=== PATIENT | male | born 1965 | race Hispanic/Latino ===

== ENCOUNTER 2021-11-21 08:19 | Inpatient (IN) | payer OTHER, SELFPAY ==
--- OUTSIDE RECORDS SUMMARY | 2021-11-21 08:28 | XMS REPORT | Continuity of Care Document ---
:1965 Demographics Address [address] [address] Mobile Phone Email Address Preferred Language es Marital Status Unknown Shinto Affiliation Unknown Race Unknown Additional Race(s) Unavailable Ethnic Group or Author Organization [facility] t Address [address] [place] [address] Care Team Providers Name Role Phone Pcp, Does Not Have A Primary Care Physician Buster OMALLEY Attending Clinician Stephanie López Attending Clinician Magali KINSEY Attending Clinician Irving KINSEY Attending Clinician Travis GUSTAFSON, E Attending Clinician Magali KINSEY Admitting Clinician Payers Payer Name Policy Type Policy Number Effective Date Expiration Date S ource Problems Condition Condition Condition Status Onset Resolution Last Treating Co mments Source Name Details Category Date Date Treatment Clinician Date Obesity Obesity Disease Active Univers (BMI (BMI 9-27 ity of 30-39.9) 30-39.9) 00:00: [address] Cellulitis Cellulitis Disease Active U nivers 9-26 ity of 00:00: [address] Allergies, Adverse Reactions, Alerts Allergy Allergy Status Severity Reaction(s) Onset Inactive Treating Comm ents Source Name Type Date Date Clinician NO KNOWN Drug Active Univers ALLERGIE Class ity of S [facility] Social History Social Habit Start Date Stop Date Quantity Comments Source Exposure to Not sure [facility]-CoV-2 [facility] (event) Branch Alcohol intake 2021-07-08 2021-07-08 Ex-drinker University 00:00:00 00:00:00 (finding) [facility] Tobacco use and 2021-07-03 2021-07-03 Never used Universit y of exposure 00:00:00 00:00:00 [facility] Sex [birth year] Universit y of 00:00:00 00:00:00 [facility] Smoking Status Start Date Stop Date Source Never smoker [facility] Medications Ordered Filled Start Stop Current Ordering Indication Dosage Frequency Signature Comments Components Source Medication Medication Date Date Medication? Clinician (SIG) Name Name amLODIPine 2020-10- No [id number] 10mg Take 1 Univers 10 mg 0-02 08-09 [id number] tablet by ity of tablet 00:00: 04:59 mouth [place] 00 :00 daily for Medical 30 days. Branch aspirin 81 2020-10- No [id number] 81mg Take 1 Univers mg chewable 0-08-09 [id number] tablet by ity of tablet 00:00: 04:59 mouth [place] 00 :00 daily for Medical 30 days. Branch lisinopriL 2020-10- No [id number] 40mg Take 1 Univers 40 mg 0-08-09 [id number] tablet by ity of tablet 00:00: 04:59 mouth [place] 00 :00 daily for Medical 30 days. Branch amLODIPine 2020-10- No [id number] 10mg Take 1 Univers 10 mg 0-02 08-09 [id number] tablet by ity of tablet 00:00: 04:59 mouth [place] 00 :00 daily for Medical 30 days. Branch aspirin 81 2020-10- No [id number] 81mg Take 1 Univers mg chewable 0-08-09 [id number] tablet by ity of tablet 00:00: 04:59 mouth [place] 00 :00 daily for Medical 30 days. Branch lisinopriL 2020-10- No [id number] 40mg Take 1 Univers 40 mg 0-02 08-09 [id number] tablet by ity of tablet 00:00: 04:59 mouth [place] 00 :00 daily for Medical 30 days. Branch amLODIPine 2020-10- No [id number] 10mg Take 1 Univers 10 mg 0-02 08-09 [id number] tablet by ity of tablet 00:00: 04:59 mouth [place] 00 :00 daily for Medical 30 days. Branch aspirin 81 2020-10- No [id number] 81mg Take 1 Univers mg chewable 08-09 [id number] tablet by ity of tablet 00:00: 04:59 mouth [place] 00 :00 daily for Medical 30 days. [place] lisinopriL 2020-10- No [id number] 40mg Take 1 Univers 40 mg 08-09 [id number] tablet by ity of tablet 00:00: 04:59 mouth [place] 00 :00 daily for Medical 30 days. [place] amLODIPine 2020-10 Yes 10mg 10 mg, Unive rs (NORVASC) 0-01 Oral, ity of tablet 10 14:00: DAILY, [place] mg 00 First dose Medical on Sun [place] 07/08/21 at 0900, Until Discontinu ed, Routine amLODIPine 2020-10 Yes 10mg 10 mg, Unive rs (NORVASC) 0- Oral, ity of tablet 10 14:00: DAILY, [place] mg 00 First dose Medical on Sun [place] 07/08/21 at 0900, Until Discontinu ed, Routine Blood-Gluco 2020-10 Yes [id number] Use as Univers se Meter 0- [id number] directed ity o f (RELION 00:00: [place] ALL-IN-ONE 00 Medical METER) Kit [place] Insulin 2020-10 Yes [id number] Use as U nivers [place], 0- [id number] directed ity o f Disposable, 00:00: [place] (RELION 00 Medical NEEDLES) 31 Branch gauge x 1/4" Ndle Blood-Gluco 2020-10 Yes [id number] Use as Univers se Meter 0- [id number] directed ity o f (RELION 00:00: [place] ALL-IN-ONE 00 Medical METER) Kit [place] Insulin 2020-10 Yes [id number] Use as U nivers [place], 0- 819887 directed ity o f Disposable, 00:00: [place] (RELION 00 Medical NEEDLES) 31 Branch gauge x 1/4" Ndle Blood-Gluco 2020-10 Yes [id number] Use as Univers se Meter 0- [id number] directed ity o f (RELION 00:00: [place] ALL-IN-ONE 00 Medical METER) Kit [place] Insulin 2020-10 Yes [id number] Use as U nivers [place], 0- 508425 directed ity o f Disposable, 00:00: [place] (RELION 00 Medical NEEDLES) 31 Branch gauge x /" Ndle atorvastati 2020-10- No [id number] 40mg Take 1 Univers n 40 mg 08-08 [id number] tablet by ity of tablet 00:00: 04:59 mouth at [place] 00 :00 bedtime Medical for 30 Branch days. glipiZIDE 2020-10- No [id number] 10mg Take 1 Univers 10 mg 08-08 [id number] tablet by ity of tablet 00:00: 04:59 mouth 2 [place] 00 :00 (two) Medical times [place] daily before breakfast and dinner for 30 days. insulin NPH 2020-10- No [id number] 13U inject 13 Univers and regular 08-08 [id number] Units ity of human 70-30 00:00: 04:59 under the [place] 100 unit/mL 00 :00 skin every Me dical (70-30) morning Branch injection and evening for 30 days. metFORMIN 2020-10- No [id number] 500mg Take 1 Univers 500 mg 08-08 [id number] tablet by ity o f tablet 00:00: 04:59 mouth 2 [place] 00 :00 ([facility] times [place] daily with meals for 30 days. atorvastati 2020-10- No [id number] 40mg Take 1 Univers n 40 mg 08-08 [id number] tablet by ity of tablet 00:00: 04:59 mouth at [place] 00 :[address] [facility] Medical for 30 Branch days. glipiZIDE 2020-10- No [id number] 10mg Take 1 Univers 10 mg 08-08 [id number] tablet by ity of tablet 00:00: 04:59 mouth 2 [place] 00 :00 ([facility] Medical times [place] daily before breakfast and dinner for 30 days. insulin NPH 2020-10- No [id number] 13U inject 13 Univers and regular 08-08 [id number] Units ity of human 70-30 00:00: 04:59 under the [place] 100 unit/mL 00 :00 skin every Me dical (70-30) morning Branch injection and evening for 30 days. metFORMIN 2020-10- No [id number] 500mg Take 1 Univers 500 mg 008-08 [id number] tablet by ity o f tablet 00:00: 04:59 mouth 2 [place] 00 :00 (two) Medical times Branch daily with meals for 30 days. atorvastati 2020-10- No [id number] 40mg Take 1 Univers n 40 mg 08-08 [id number] tablet by ity of tablet 00:00: 04:59 mouth at [place] 00 :00 bedtime Medical for 30 Branch days. glipiZIDE 2020-10- No [id number] 10mg Take 1 Univers 10 mg 08-08 [id number] tablet by ity of tablet 00:00: 04:59 mouth 2 [place] 00 :00 (two) Medical times Branch daily before breakfast and dinner for 30 days. insulin NPH 2020-10- No [id number] 13U inject 13 Univers and regular 08-08 [id number] Units ity of human 70-30 00:00: 04:59 under the [place] 100 unit/mL 00 :00 skin every Me dical (70-30) morning Branch injection and evening for 30 days. metFORMIN 2020-10- No [id number] 500mg Take 1 Univers 500 mg 08-08 [id number] tablet by ity o f tablet 00:00: 04:59 mouth 2 [place] 00 :00 (two) Medical times Branch daily with meals for 30 days. lactobacill 2020-10- No [id number] .5mg Take 1 Univers us 007-19 [id number] tablet by ity of acidophilus 00:00: 04:59 mouth 2 [place] 00 :00 (two) Medical times Branch daily for 10 days. lactobacill 2020-10- No [id number] .5mg Take 1 Univers us 07-19 [id number] tablet by ity of acidophilus 00:00: 04:59 mouth 2 [place] 00 :00 (two) Medical times Branch daily for 10 days. lactobacill 2020-10 No [id number] .5mg Take 1 Univers us 0-07-19 [id number] tablet by ity of acidophilus 00:00: 04:59 mouth 2 [place] 00 :00 (two) Medical times Branch daily for 10 days. amoxicillin 2020-10- No [id number] 500mg Take 1 Univers 500 mg 07-16 [id number] tablet by ity o f tablet 00:00: 04:59 mouth 2 [place] 00 :00 (two) Medical times Branch daily for 7 days. amoxicillin 2020-10- No [id number] 500mg Take 1 Univers 500 mg 0-07-16 [id number] tablet by ity o f tablet 00:00: 04:59 mouth 2 [place] 00 :00 (two) Medical times Branch daily for 7 days. amoxicillin 2020-10 No [id number] 500mg Take 1 Univers 500 mg 007-16 [id number] tablet by ity o f tablet 00:00: 04:59 mouth 2 [place] 00 :00 (two) Medical times Branch daily for 7 days. HYDROcodone 2020-10- No [id number] 1{tbl} Take 1 U nivers -acetaminop 0-01 10-07 tablet by it y of hen 5-325 00:00: 04:59 mouth [place] mg tablet 00 :00 every 6 Medical (six) Branch hours as needed for Pain (scale 7-10) for up to 5 days. Indication s: acute pain HYDROcodone 2020-10- No [id number] 1{tbl} Take 1 U nivers -acetaminop 0-01 10-07 tablet by it y of hen 5-325 00:00: 04:59 mouth [place] mg tablet 00 :00 every 6 Medical (six) Branch hours as needed for Pain (scale 7-10) for up to 5 days. Indication s: acute pain HYDROcodone 2020-10- No [id number] 1{tbl} Take 1 U nivers -acetaminop 0-01 10-07 tablet by it y of hen 5-325 00:00: 04:59 mouth [place] mg tablet 00 :00 every 6 Medical (six) Branch hours as needed for Pain (scale 7-10) for up to 5 days. Indication s: acute pain lisinopriL 2020-0 Yes 40mg 40 mg, Unive rs (PRINIVIL,Z 9-30 Oral, ity of ESTRIL) 14:00: DAILY, [place] tablet 40 00 First dose Medi marco a mg (after Branch last modificati on) on Thuy 07/07/21 at 0900, Until Discontinu ed, Routine lisinopriL 2020-0 Yes 40mg 40 mg, Unive rs (PRINIVIL,Z 9-30 Oral, ity of ESTRIL) 14:00: DAILY, [place] tablet 40 00 First dose Medi marco a mg (after Branch last modificati on) on Thuy 07/07/21 at 0900, Until Discontinu ed, Routine lisinopriL Yes 40mg 40 mg, Unive rs (PRINIVIL,Z 9-30 Oral, ity of ESTRIL) 14:00: DAILY, [place] tablet 40 00 First dose Medi marco a mg (after Branch last modificati on) on Thuy 07/07/21 at 0900, Until Discontinu ed, Routine lactated 2020-0 Yes 1000mL at 50 Univer s ringers IV 9-30 mL/hr, ity of infusion 13:45: 1,000 mL, [place] 1,000 mL 00 IV Medical Infusion, Branch CONTINUOUS , Starting on Thuy 07/07/21 at 0845, Until Discontinu ed, Routine, PACU lactated 2020-0 Yes 1000mL at 50 Univer s ringers IV 9-30 mL/hr, ity of infusion 13:45: 1,000 mL, [place] 1,000 mL 00 IV Medical Infusion, Branch CONTINUOUS , Starting on Thuy 07/07/21 at 0845, Until Discontinu ed, Routine, PACU HYDROmorphO 2020- No .2mg 0.2 mg, Un baldemar ne 07-07 Slow IV ity of (DILAUDID) 13:35: 14:34 [place], [place] injection 49 :40 Q5MIN PRN, Medi marco a 0.2 mg 10 doses, Branch Starting on Thuy 07/07/21 at 0835, Until Thuy 07/07/21 at 0934, Routine, Pain (scale 7-10), PACU
Us e approved by (Faculty): PACU USE -ANESTHESI A SERVICE-HY DROMORPHON E INJECTIONS bupivacaine 2020- No PRN, Unive rs (preserv 07-07 Starting ity of free) 13:14: 14:34 on Thuy [place] (SENSORCAIN 00 :40 07/07/21 at Mt dical E MPF) 0.25 0814, Branch % (2.5 Intra-op mg/mL) 5 mL, lidocaine 1% (PF) (XYLOCAINE) 5 mL benzocaine- Yes 1{lozen 1 Lozenge, Univers menthoL 9-30 ge} Oral, ity of (CEPACOL 00:29: Q4HPRN, [place] SORE THROAT 57 Starting Medi marco a (ANA LILIA-MEN)) on Sun [facility] 07/06/21 at Lozen 192, Until Discontinu ed, Routine, cough/sore throat benzocaine- Yes 1{lozen 1 Lozenge, Univers menthoL 9-30 ge} Oral, ity of (CEPACOL 00:29: Q4HPRN, [place] SORE THROAT 57 Starting Medi marco a (ANA LILIA-MEN)) [facility] at zen 1928, Until Discontinu ed, Routine, cough/sore throat insulin NPH Yes 13U 13 Units, U nivers and regular 07-06 Subcutaneo it y of human 22:00: [place], [place] (HUMULIN 00 QAM+PM, Medical 70-30 U-100 First dose Br anch INSULIN) on Sun 100 unit/mL 07/06/21 at (70-30) 1700, injection Until 13 Units Discontinu ed, Routine insulin NPH Yes 13U 13 Units, U nivers and regular 07-06 Subcutaneo it y of human 30 22:00: [place], [place] (HUMULIN 00 QAM+PM, Medical 70-30 U-100 First dose Br anch INSULIN) on Sun 100 unit/mL 07/06/21 at (70-30) 1700, injection Until 13 Units Discontinu ed, Routine insulin NPH Yes 13U 13 Units, U nivers and regular 07-06 Subcutaneo it y of human 30 22:00: [place], [place] (HUMULIN 00 QAM+PM, Medical 70-30 U-100 First dose Br anch INSULIN) on Sun 100 unit/mL 07/06/21 at (70-30) 1700, injection Until 13 Units Discontinu ed, Routine lisinopriL No 20mg 20 mg, Univ ers (PRINIVIL,Z 07-06 Oral, ONCE i ty of ESTRIL) 18:30: 18:54 NOW, 1 [place] tablet 20 00 :00 dose, On Medica l mg Wed Branch 07/06/21 at 1330, Routine No known No Univers medications 07-06 ity of 07:41: [place] 15 Medical Branch lactated 2020- No 1000mL at 100 [facility] ers ringers IV 07-06 mL/hr, ity of infusion 00:15: 13:29 1,000 mL, [place] 1,000 mL 00 :01 IV Medical Infusion, Branch CONTINUOUS , Starting on Sun07/05/21 at 1915, Until Sun07/06/21 at 0829, Routine, PACU sodium 2020- No PRN, Univers chloride 07-06 Starting ity of 0.9 % 00:09: 00:34 on Sun [place] irrigation 00 :57 07/05/21 at [facility] ical solution 1909, Branch Until Sun07/05/21 at 1934, Intra-op bupivacaine 2020- No PRN, Unive rs (preserv 07-06 Starting ity of free) 0.5% 00:07: 00:34 on [place] (SENSORCAIN 00 :57 07/05/21 at Mt dical E MPF) 0.5 1907, Branch % (5 mg/mL) Until Sun injection 07/05/21 at 1934, Routine, Intra-op lidocaine 2020- No PRN, Univers 1% 07-05 Starting ity of (XYLOCAINE) 23:22: 00:34 on Sun [place] 10 mg/mL (1 00 :57 07/05/21 at Mt dical %) 1822, Branch injection Until Sun07/05/21 at 1934, Routine, Intra-op gadoteridol 2020- No [id number] .2mL/kg 19.2 mL Univers (PROHANCE-2 07-05 [id number] (0.2 mL/kg ity of 0 mL) 14:45: 14:45 ?96 kg), [place] injection 00 :00 Intravenou Medi marco a 19.2 mL s, ONCE, 1 Branch dose, On Sun07/05/21 at 0945, Routine vancomycin 2021-0 Yes 1500mg 1,500 mg, Univers 1500 mg in 07-05 IV ity of NS 500 mL 05:00: Infusion, [place] IV 00 Q12H ABX, Medical Piggyback First dose Bran ch RTU 1,500 on Tue mg 07/05/21 at 0000, Until Discontinu ed, Administer over 90 Minutes
Reason for Anti-Infec tive: Documented Infection< br>Documen eulalio Infection Site: Wound
D uration of Therapy: 7 days vancomycin 0 Yes 1500mg 1,500 mg, Univers 1500 mg in 07-05 IV ity of NS 500 mL 05:00: Infusion, [place] IV 00 Q12H ABX, Medical Piggyback First dose Bran RTU 1,500 on Tue mg 07/05/21 at 0000, Until Discontinu ed, Administer over 90 Minutes
Reason for Anti-Infec tive: Documented Infection< br>Documen eulalio Infection Site: Wound
D uration of Therapy: 7 days vancomycin Yes 1500mg 1,500 mg, Univers 1500 mg in 07-05 IV ity of NS 500 mL 05:00: Infusion, [place] IV 00 Q12H ABX, Medical Piggyback First dose Bran RTU 1,500 on Tue mg 07/05/21 at 0000, Until Discontinu ed, Administer over 90 Minutes
Reason for Anti-Infec tive: Documented Infection< br>Documen eulalio Infection Site: Wound
D uration of Therapy: 7 days metroNIDAZO 0 Yes 500mg 500 mg, Un baldemar LE (FLAGYL) 07-05 Oral, Q8H, it y of tablet 500 03:00: First dose [place] mg 00 on [facility] 07/04/21 at Branch 2200, Until Discontinu ed, Routine
Reason for Anti-Infec tive: Documented Infection< br>Documen eulalio Infection Site: Skin / Soft Tissue<br& gt;Duratio n of Therapy: 7 days metroNIDAZO 0 Yes 500mg 500 mg, Un baldemar LE (FLAGYL) 07-05 Oral, Q8H, it y of tablet 500 03:00: First dose [place] mg 00 on [facility] 07/04/21 at Branch 2200, Until Discontinu ed, Routine
Reason for Anti-Infec tive: Documented Infection< br>Documen eulalio Infection Site: Skin / Soft Tissue<br& gt;Duratio n of Therapy: 7 days metroNIDAZO 2020-0 Yes 500mg 500 mg, Un baldemar LE (FLAGYL) 9-28 Oral, Q8H, it y of tablet 500 03:00: First dose [place] mg 00 on [facility] Medical 07/04/21 at Branch 2200, Until Discontinu ed, Routine
Reason for Anti-Infec tive: Documented Infection< br>Documen eulalio Infection Site: Skin / Soft Tissue<br& gt;Duratio n of Therapy: 7 days benzonatate 2020-0 Yes 100mg 100 mg, Un baldemar (TESSALON 9-28 Oral, ity of PERLES) 01:20: TIDPRN, [place] capsule 100 41 Starting Medi marco a mg on Mon Branch 07/04/21 at 2019, Until Discontinu ed, Routine, Cough benzonatate 2020-0 Yes 100mg 100 mg, Un baldemar (TESSALON 9-28 Oral, ity of PERLES) 01:20: TIDPRN, [place] capsule 100 41 Starting Medi marco a mg on Mon Branch 07/04/21 at 2019, Until Discontinu ed, Routine, Cough benzonatate 2020-0 Yes 100mg 100 mg, Un baldemar (TESSALON 9-28 Oral, ity of PERLES) 01:20: TIDPRN, [place] capsule 100 41 Starting Medi marco a mg on Mon Branch 07/04/21 at 2019, Until Discontinu ed, Routine, Cough HYDROcodone 2020-0 Yes 1{tbl} 1 tablet, Univers -acetaminop 9-28 Oral, ity of hen (NORCO) 01:20: Q6HPRN, [place] 10-325 mg 21 Starting Medica l tablet 1 on Mon Branch tablet 07/04/21 at 2019, Until Discontinu ed, Routine, Pain (scale 7-10) HYDROcodone 2020-0 Yes 1{tbl} 1 tablet, Univers -acetaminop 9-28 Oral, ity of hen (NORCO) 01:20: Q6HPRN, [place] 10-325 mg 21 Starting Medica l tablet 1 on Mon Branch tablet 07/04/21 at 2020, Until Discontinu ed, Routine, Pain (scale 7-10) HYDROcodone 2020-0 Yes 1{tbl} 1 tablet, Univers -acetaminop 9-28 Oral, ity of hen (NORCO) 01:20: Q6HPRN, [place] 10-325 mg 21 Starting Medica l tablet 1 on Mon Branch tablet 07/04/21 at 2019, Until Discontinu ed, Routine, Pain (scale 7-10) HYDROcodone 2020-0 Yes 1{tbl} 1 tablet, Univers -acetaminop 9-28 Oral, ity of hen (NORCO 01:20: Q6HPRN, [place] 5) 5-325 mg 07 Starting Medi marco a tablet 1 on Mon Branch tablet 07/04/21 at 2019, Until Discontinu ed, Routine, Pain (scale 4-6) HYDROcodone 2020-0 Yes 1{tbl} 1 tablet, Univers -acetaminop 9-28 Oral, ity of hen (NORCO 01:20: Q6HPRN, [place] 5) 5-325 mg 07 Starting Medi marco a tablet 1 on Mon Branch tablet 07/04/21 at 2019, Until Discontinu ed, Routine, Pain (scale 4-6) HYDROcodone 2020-0 Yes 1{tbl} 1 tablet, Univers -acetaminop 9-28 Oral, ity of hen (NORCO 01:20: Q6HPRN, [place] 5) 5-325 mg 07 Starting Medi marco a tablet 1 on Mon Branch tablet 07/04/21 at 2019, Until Discontinu ed, Routine, Pain (scale 4-6) lactobacill 2020-0 Yes .5mg 0.5 mg, Uni vers us 9-28 Oral, BID, ity of acidophilus 01:00: First dose [place] tablet 0.5 00 on Mon Medical mg 07/04/21 at Branch 1999, Until Discontinu ed, Routine lactobacill 2020-0 Yes .5mg 0.5 mg, Uni vers us 9-28 Oral, BID, ity of acidophilus 01:00: First dose [place] tablet 0.5 00 on Mon Medical mg 07/04/21 at Branch 1999, Until Discontinu ed, Routine lactobacill 2020-0 Yes .5mg 0.5 mg, Uni vers us 9-28 Oral, BID, ity of acidophilus 01:00: First dose [place] tablet 0.5 00 on Mon Medical mg 07/04/21 at Branch 2000, Until Discontinu ed, Routine ceFEPIme Yes 1000mg 1,000 mg, Un baldemar (MAXIPIME) 9- IV ity of 1,000 mg in 21:30: Piggyback, [place] NaCl 0.9% 00 Q8H ABX, Medica l (NS) 50 mL First dose Bra nch MINI-BAG on Sun07/04/21 at 1630, Until Discontinu ed, Administer over 30 Minutes, 50 mL
Reas on for Anti-Infec tive: Documented Infection< br>Documen eulalio Infection Site: Skin / Soft Tissue
Duration of Therapy: 7 days ceFEPIme Yes 1000mg 1,000 mg, Un baldemar (MAXIPIME) 9 IV ity of 1,000 mg in 21:30: [place], [place] NaCl 0.9% 00 Q8H ABX, Medica l (NS) 50 mL First dose Bra nch MINI-BAG on Sun07/04/21 at 1630, Until Discontinu ed, Administer over 30 Minutes, 50 mL
Reas on for Anti-Infec tive: Documented Infection< br>Documen eulalio Infection Site: Skin / Soft Tissue
Duration of Therapy: 7 days ceFEPIme Yes 1000mg 1,000 mg, Un baldemar (MAXIPIME) 9 IV ity of 1,000 mg in 21:30: [facility] [place] NaCl 0.9% 00 Q8H ABX, Medica l (NS) 50 mL First dose Bra nch MINI-BAG on Sun07/04/21 at 1630, Until Discontinu ed, Administer over 30 Minutes, 50 mL
Reas on for Anti-Infec tive: Documented Infection< br>Documen eulalio Infection Site: Skin / Soft Tissue
Duration of Therapy: 7 days atorvastati Yes 40mg 40 mg, Univ ers n (LIPITOR) - Oral, QHS, it y of tablet 40 02:00: First dose [place] mg 00 on [facility] 07/03/21 at Branch 2100, Until Discontinu ed, Routine atorvastati Yes 40mg 40 mg, Univ ers n (LIPITOR) 07-04 Oral, QHS, it y of tablet 40 02:00: First dose [place] mg 00 on [facility] 07/03/21 at [place] 2100, Until Discontinu ed, Routine atorvastati Yes 40mg 40 mg, Univ ers n (LIPITOR) 07-04 Oral, QHS, it y of tablet 40 02:00: First dose [place] mg 00 on [facility] 07/03/21 at Branch 2100, Until Discontinu ed, Routine vancomycin 2020- No 1000mg 1,000 mg, Univers (VANCOCIN) 07-03 IV ity of 1,000 mg in 17:00: 22:34 [place], [place] NaCl 0.9% 00 :00 Q12H ABX, Medic al (NS) 250 mL First dose Br anch VIAL-MATE (after IV last piggyback reorder) on [place] 07/03/21 at 1200, Until Discontinu ed, Administer over 60 Minutes, 250 mL
Reas on for Anti-Infec tive: Documented Infection& lt;br>Docu mented Infection Site: Wound
D uration of Therapy: 7 days iopamidol 2020- No [id number] 100mL 100 mL, Univers (ISOVUE 07-03 [id number] Intravenou ity of 370-500 mL) 16:00: 14:35 s, ONCE, 1 [place] injection 00 :00 dose, On Medica l 100 mL [facility] 07/03/21 at 1100, Routine magnesium 2020- No 2g 2 g, IV Univ ers sulfate in 07-03 Piggyback, it y of water 2 14:30: 15:41 ONCE, 1 [place] gram/50 mL 00 :00 dose, On Medic al (4 %) [facility] infusion 2 07/03/21 at g 0930, Routine piperacilli 2020- No 3.375g 3.375 g, Univers n-tazobacta 07-03 IV ity of m (ZOSYN) 14:15: 20:21 [place], [place] 3.375 g in 00 :19 Q6H ABX, Medic al NaCl 0.9% First dose Bran ch (NS) 100 mL (after MINI-BAG last reorder) on [place] 07/03/21 at 0915, Until Discontinu ed, Administer over 30 Minutes, 100 mL
Reas on for Anti-Infec tive: Documented Infection& lt;br>Docu mented Infection Site: Wound
D uration of Therapy: Other (see Comments) aspirin 2020-0 Yes 81mg 81 mg, Univers chewable 07-03 Oral, ity of tablet 81 14:00: DAILY, [place] mg 00 First dose Medical on [facility] 07/03/21 at 0900, Until Discontinu ed, Routine enoxaparin 2020-0 Yes 40mg 40 mg, Unive rs (LOVENOX) 07-03 Subcutaneo ity of injection 14:00: us, DAILY, [place] 40 mg 00 First dose Medical on [facility] 07/03/21 at 0900, Until Discontinu ed, Routine aspirin 2020-0 Yes 81mg 81 mg, Univers chewable 07-03 Oral, ity of tablet 81 14:00: DAILY, [place] mg 00 First dose Medical on [facility] 07/03/21 at 0900, Until Discontinu ed, Routine enoxaparin 2020-0 Yes 40mg 40 mg, Unive rs (LOVENOX) 07-03 Subcutaneo ity of injection 14:00: us, DAILY, [place] 40 mg 00 First dose Medical on [facility] 07/03/21 at 0900, Until Discontinu ed, Routine aspirin 2020-0 Yes 81mg 81 mg, Univers chewable 07-03 Oral, ity of tablet 81 14:00: DAILY, [place] mg 00 First dose Medical on [facility] 07/03/21 at 0900, Until Discontinu ed, Routine enoxaparin 2020-0 Yes 40mg 40 mg, Unive rs (LOVENOX) 07-03 Subcutaneo ity of injection 14:00: us, DAILY, [place] 40 mg 00 First dose Medical on [facility] 07/03/21 at 0900, Until Discontinu ed, Routine NaCl 0.9% 2020-0 Yes 1000mL at 50 Unive rs (NS) IV 9-26 mL/hr, IV ity of infusion 13:15: Infusion, [place] 1,000 mL 00 CONTINUOUS Medic al , Starting Branch on [place] 07/03/21 at 0815, Until Discontinu ed, Routine NaCl 0.9% 2021-0 Yes 1000mL at 50 Unive rs (NS) IV 9-26 mL/hr, IV ity of infusion 13:15: Infusion, [place] 1,000 mL 00 CONTINUOUS Medic al , Starting Branch on [place] 07/03/21 at 0815, Until Discontinu ed, Routine NaCl 0.9% 2021-0 Yes 1000mL at 50 Unive rs (NS) IV 9-26 mL/hr, IV ity of infusion 13:15: Infusion, [place] 1,000 mL 00 CONTINUOUS Medic al , Starting Branch on [place] 07/03/21 at 0815, Until Discontinu ed, Routine docusate 2020-0 Yes 100mg 100 mg, Unive rs (COLACE) 07-03 Oral, BID, ity o f capsule 100 13:00: First dose [place] mg 00 on [facility] 07/03/21 at Branch 0800, Until Discontinu ed, Routine docusate 2020-0 Yes 100mg 100 mg, Unive rs (COLACE) 07-03 Oral, BID, ity o f capsule 100 13:00: First dose [place] mg 00 on [facility] 07/03/21 at Branch 0800, Until Discontinu ed, Routine docusate 2020-0 Yes 100mg 100 mg, Unive rs (COLACE) 07-03 Oral, BID, ity o f capsule 100 13:00: First dose [place] mg 00 on [facility] 07/03/21 at Branch 0800, Until Discontinu ed, Routine lisinopriL 2020-0 2021- No 20mg 20 mg, Univ ers (PRINIVIL,Z 07-0329 Oral, BID, i ty of ESTRIL) 13:00: 17:22 First dose [place] as tablet 20 00 :08 on [facility] mg 07/03/21 at Branch 0800, Until Discontinu ed, Routine glipiZIDE 2020-0 Yes 10mg 10 mg, Univer s (GLUCOTROL) 07-03 Oral, ity of tablet 10 12:30: BIDAC, [place] mg 00 First dose Medical on [place] [facility] 07/03/21 at 0730, Until Discontinu ed, Routine glipiZIDE 1-0 Yes 10mg 10 mg, Univer s (GLUCOTROL) 07-03 Oral, ity of tablet 10 12:30: BIDAC, [place] mg 00 First dose Medical on [place] [facility] 07/03/21 at 0730, Until Discontinu ed, Routine glipiZIDE Yes 10mg 10 mg, Univer s (GLUCOTROL) 07-03 Oral, ity of tablet 10 12:30: BIDAC, [place] mg 00 First dose Medical on [place] [facility] 07/03/21 at 0730, Until Discontinu ed, Routine insulin NPH 202- No 10U 10 Units, Univers and regular 07-03 0927 Subcutaneo i ty of human 70-30 12:30: 13:29 us, BIDAC, [place] (HUMULIN 00 :20 First dose Medic al 70-30 U-100 on [facility] INSULIN) 07/03/21 at 100 unit/mL 0730, (70-30) Until injection Discontinu 10 Units ed, Routine magnesium Yes 400mg 400 mg, Univ ers oxide 07-03 Oral, BID, ity of (MAG-OX 12:15: [place] 400[place] tablet 00 on [facility] 400 mg 07/03/21 at Branch 0715, Until Discontinu ed, Routine magnesium Yes 400mg 400 mg, Univ ers oxide 07-03 Oral, BID, ity of (MAG-OX 12:15: [place] 400[place] tablet 00 on [facility] 400 mg 07/03/21 at Branch 0715, Until Discontinu ed, Routine magnesium Yes 400mg 400 mg, Univ ers oxide 07-03 Oral, BID, ity of (MAG-OX 12:15: [place] 400[place] tablet 00 on [facility] 400 mg 07/03/21 at Branch 0715, Until Discontinu ed, Routine Sliding 2020- Yes Subcutaneo Univ ers Scale - us, TID ity of Insulin - 08:45: MEALS, [place] Lispro 00 First dose Medical (HumaLOG) + on [facility]sbg 07/03/21 at Testing 0345, Until Discontinu ed, Routine Sliding 2020- Yes Subcutaneo Univ ers Scale 07-03 us, TID ity of Insulin - 08:45: MEALS, [place] Lispro 00 First dose Medical (HumaLOG) + on [facility] 07/03/21 at Testing 0345, Until Discontinu ed, Routine Sliding Yes Subcutaneo Univ ers Scale 07-03 us, TID ity of Insulin - 08:45: MEALS, [place] Lispro 00 First dose Medical (HumaLOG) + on [facility] 07/03/21 at Testing 0345, Until Discontinu ed, Routine ondansetron 2020-0 Yes 4mg 4 mg, Slow Univers (ZOFRAN 07-03 IV Push, ity of (PF)) 08:30: Q6HPRN, [place] injection 4 37 Starting Medi marco a mg on [place] [facility] 07/03/21 at 0330, Until Discontinu ed, Routine, Nausea and Vomiting (N/V) ondansetron 2020-0 Yes 4mg 4 mg, Slow Univers (ZOFRAN 07-03 IV Push, ity of (PF)) 08:30: Q6HPRN, [place] injection 4 37 Starting Medi marco a mg on [place] [facility] 07/03/21 at 0330, Until Discontinu ed, Routine, Nausea and Vomiting (N/V) ondansetron 2020-0 Yes 4mg 4 mg, Slow Univers (ZOFRAN 07-03 IV Push, ity of (PF)) 08:30: Q6HPRN, [place] injection 4 37 Starting Medi marco a mg on [place] [facility] 07/03/21 at 0330, Until Discontinu ed, Routine, Nausea and Vomiting (N/V) piperacilli 2020-0 2020- No 3.375g 3.375 g, Univers n-tazobacta 07-03 IV ity of m (ZOSYN) 08:30: 08:16 [place]gyback, [place] 3.375 g in 00 :00 ONCE, 1 Medica l NaCl 0.9% dose, On Branch (NS) 100 mL [place] MINI-BAG 07/03/21 at 0330, Administer over 30 Minutes, 100 mL
Reas on for Anti-Infec tive: Documented Infection< br>Documen eulalio Infection Site: Wound<br&g t;Duration of Therapy: Other (see Comments) glucagon 2020-0 Yes 1mg 1 mg, Univers (GLUCAGEN 07-03 Intramuscu ity of DIAGNOSTIC 08:29: lar, [place]N, [place] KIT) 07 Starting Medical injection 1 on [facility] 07/03/21 at 0329, Until Discontinu ed, JUAN, Blood Glucose < or = 70 mg/dL and patient is unable to swallow or has mental changes. dextrose 50 2020-0 Yes 25mL 25 mL, Univ ers % in water 07-03 Slow IV ity of (D50W) 08:29: Push, PRN, [place] injection 07 Starting Medica l 25 mL on [facility] 07/03/21 at 0329, Until Discontinu ed, JUAN, Blood Glucose < or = 70 mg/dL and patient is unable to swallow or has mental status changes. glucagon 2020-0 Yes 1mg 1 mg, Univers (GLUCAGEN 07-03 Intramuscu ity of DIAGNOSTIC 08:29: [place], PRN, [place] KIT) 07 Starting Medical injection 1 on [facility] 07/03/21 at 0329, Until Discontinu ed, JUAN, Blood Glucose < or = 70 mg/dL and patient is unable to swallow or has mental changes. dextrose 50 2020-0 Yes 25mL 25 mL, Univ ers % in water 07-03 Slow IV ity of (D50W) 08:29: Push, PRN, [place] injection 07 Starting Medica l 25 mL on [facility] 07/03/21 at 0329, Until Discontinu ed, JUAN, Blood Glucose < or = 70 mg/dL and patient is unable to swallow or has mental status changes. glucagon 2020-0 Yes 1mg 1 mg, Univers (GLUCAGEN 07-03 Intramuscu ity of DIAGNOSTIC 08:29: lar, PRN, [place] KIT) 07 Starting Medical injection 1 on [facility] 07/03/21 at 0329, Until Discontinu ed, JUAN, Blood Glucose < or = 70 mg/dL and patient is unable to swallow or has mental changes. dextrose 50 2020-0 Yes 25mL 25 mL, Univ ers % in water 07-03 Slow IV ity of (D50W) 08:29: Push, PRN, [place] injection 07 Starting Medica l 25 mL on [facility] 07/03/21 at 0329, Until Discontinu ed, JUAN, Blood Glucose < or = 70 mg/dL and patient is unable to swallow or has mental status changes. labetaloL No 10mg 10 mg, Unive rs (NORMODYNE) 07-03 Slow IV ity of injection 08:00: 07:02 Push, [place] 10 mg 00 :00 ONCE, 1 Medical dose, On Branch [place] 07/03/21 at 0300, JUAN HYDROcodone 2020- No 1{tbl} 1 tablet, Univers -acetaminop 07-03 Oral, ity of hen (NORCO) 07:15: 06:13 ONCE, 1 [place] 10-325 mg 00 :00 dose, On Medica l tablet 1 [facility] tablet 07/03/21 at 0215, Routine vancomycin No 15mg/kg 1,500 mg Univers 1500 mg in 07-03 (rounded ity of NS 500 mL 07:00: 07:31 from [place] IV 00 :00 1,633.5 mg Medical Piggyback = 15 mg/kg [place] RTU 1,500 ?108.9 mg kg), IV Piggyback, ONCE, 1 dose, On [place] 07/03/21 at 0200, Administer over 90 Minutes
Reason for Anti-Infec tive: Documented Infection< br>Documen eulalio Infection Site: Wound
D uration of Therapy: 7 days NaCl 0.9% No 1000mL at 999 Uni vers (NS) bolus 07-03 mL/hr, ity of infusion 06:00: 07:55 1,000 mL, [place] as 1,000 mL 00 :00 IV Medical Infusion, Branch ONCE, 1 dose, On [place] 07/03/21 at 0100, STAT Vital Signs Vital Name Observation Time Observation Value Comments Source Systolic blood 2021-07-08 12:33:00 181 mm[Hg] Univer sity of pressure [facility] Diastolic blood 2021-07-08 12:33:00 86 mm[Hg] Unive rsity of [facility] Heart rate 2021-07-08 12:33:00 79 /min [facility] Body temperature 2021-07-08 12:33:00 36.28 Rhonda [facility] ersity of [place] [facility] Respiratory rate 2021-07-08 12:33:00 18 /min Univ ersity of [place] [facility] Oxygen saturation in 2021-07-08 12:33:00 95 /min University of Arterial blood by [place] [employer] marco a Pulse oximetry Branch Body weight 2021-07-08 08:12:00 98.975 kg Universi ty of [place] [facility] BMI 2021-07-08 08:12:00 35.24 kg/m2 Universi ty [facility] [place] [facility] Body height 2021-07-06 12:41:00 167.6 cm Universi ty of [place] [facility] Systolic blood 2021-07-07 14:15:00 142 mm[Hg] Univer sity of pressure [place] [facility] Diastolic blood 2021-07-07 14:15:00 74 mm[Hg] Unive rsity of pressure [place] [facility] Heart rate 2021-07-07 14:15:00 75 /min Universi ty of [place] [facility] Respiratory rate 2021-07-07 14:15:00 18 /min Univ ersity of [place] [facility] Oxygen saturation in 2021-07-07 14:15:00 91 /min University of Arterial blood by [facility] Pulse oximetry Branch Body temperature 2021-07-07 13:30:00 36.11 Rhonda Univ ersity of [place] [facility] Body weight 2021-07-07 09:26:00 97.977 kg Universi ty of [place] [facility] BMI 2021-07-07 09:26:00 35.24 kg/m2 Universi ty of [place] [facility] Body height 2021-07-06 12:41:00 167.6 cm Universi ty [facility] [place] [facility] Systolic blood 2021-07-05 20:29:00 177 mm[Hg] Univer sity of pressure [place] [facility] Diastolic blood 2021-07-05 20:29:00 83 mm[Hg] Unive rsity of pressure [place] [facility] Heart rate 2021-07-05 20:29:00 98 /min Universi ty [facility] [place] [facility] Body temperature 2021-07-05 20:29:00 37.22 Rhonda Univ ersity [facility] [place] [facility] Oxygen saturation in 2021-07-05 20:29:00 98 /min University of Arterial blood by [facility] Pulse oximetry Branch Respiratory rate 2021-07-05 09:46:00 20 /min [facility] Body weight 2021-07-05 09:46:00 95.981 kg [facility] BMI 2021-07-05 09:46:00 34.18 kg/m2 [facility] Body height 2021-07-04 13:04:00 167.6 cm [facility] Procedures Procedure Date / Time Performing Clinician Source Performed POCT GLUCOSE (AUTOMATED) 2021-07-08 16:44:00 Chandler Vilaltoro Uni versity of [facility] POCT GLUCOSE (AUTOMATED) 2021-07-08 16:44:00 OvChandler guy Uni versity of [facility] POCT GLUCOSE (AUTOMATED) 2021-07-08 12:35:00 Chandler Villatoro Uni versity of [facility] POCT GLUCOSE (AUTOMATED) 2021-07-08 12:35:00 Chandler Villatoro Uni versity of [facility] POCT GLUCOSE (AUTOMATED) 2021-07-07 22:13:00 OvChandler guy Uni versity of [facility] POCT GLUCOSE (AUTOMATED) 2021-07-07 22:13:00 OvHenry guyi Uni versity of [facility] POCT GLUCOSE (AUTOMATED) 2021-07-07 16:41:00 Henry Villatoroi Uni versity of [facility] POCT GLUCOSE (AUTOMATED) 2021-07-07 16:41:00 Henry Villatoroi Uni versity of [facility] POCT GLUCOSE (AUTOMATED) 2021-07-07 14:52:00 OvChandler guy Uni versity of [facility] POCT GLUCOSE (AUTOMATED) 2021-07-07 14:52:00 Chandler Villatoro Uni versity of [facility] CLOSURE SURGICAL WOUND 2021-07-07 12:40:00 Nomi Robles [facility] LOWER EXTREMITY Medical Branch CLOSURE SURGICAL WOUND 2021-07-07 12:40:00 N[facility]les [facility] EXTREMITY Medical Branch POCT GLUCOSE (AUTOMATED) 2021-07-07 12:20:00 Gm De Los Santos Uni versity of [facility] POCT GLUCOSE (AUTOMATED) 2021-07-07 12:20:00 MagaliGm yoder versity [facility] BASIC METABOLIC PANEL 2021-07-07 10:27:00 Ernesto Madie Montelongo Un iversity of [place] (NA, K, CL, CO2, GLUCOSE, Medica l Branch BUN, CREATININE, CA) CBC WITH DIFF 2021-07-07 10:27:00 Madie Orozco [facility] BASIC METABOLIC PANEL 2021-07-07 10:27:00 Madie Orozco Un iversity of [place] (NA, K, CL, CO2, GLUCOSE, Medica l Branch BUN, CREATININE, CA) CBC WITH DIFF 2021-07-07 10:27:00 Madie Orozco [facility] POCT GLUCOSE (AUTOMATED) 2021-07-07 05:05:00 [facility] 2021-07-07 05:05:00 Gm De Los Santos Uni versity [facility] POCT GLUCOSE (AUTOMATED) 2021-07-06 21:32:00 [facility] ([facility]OMATED) 2021-07-06 21:32:00 Gm De Los Santos versity [facility] CBC WITH DIFF 2021-07-06 18:42:00 Nomi Robles [facility] CBC WITH DIFF 2021-07-06 18:42:00 Nomi Robles [facility] CBC WITH DIFF 2021-07-06 18:42:00 Nomi Robles [facility] POCT GLUCOSE (AUTOMATED) 2021-07-06 16:30:00 Gm De Los Santos Uni versity [facility] POCT GLUCOSE (AUTOMATED) 2021-07-06 16:30:00 Gm De Los Santos Uni versity [facility] POCT GLUCOSE (AUTOMATED) 2021-07-06 16:30:00 [facility] VANCOM[facility] TROUGH 2021-07-06 15:35:[address] [facility] VANCOMYCIN TROUGH 2021-07-06 15:35:[address] [facility] VANCOMYCIN TROUGH 2021-07-06 15:35:[address] [facility] POCT GLUCOSE (AUTOMATED) 2021-07-06 12:37:00 Gm De Los Santos versity [facility] POCT GLUCOSE (AUTOMATED) 2021-07-06 12:37:00 Gm De Los Santos Uni versity [facility] POCT GLUCOSE (AUTOMATED) 2021-07-06 12:37:00 Gm De Los Santos [facility] COMP. METABOLIC PANEL 2021-07-06 11:07:00 Gm De Los Santos [facility] ([id number]) [facility] COMP. METABOLIC PANEL 2021-07-06 11:07:00 Gm De Los Santos [facility] ([id number]) [facility] COMP. METABOLIC PANEL 2021-07-06 11:07:00 Gm De Los Santos [facility] ([id number]) [facility] SURGICAL PATHOLOGY EXAM 2021-07-05 23:42:[address] [facility] SURGICAL PATHOLOGY EXAM 2021-07-05 23:42:[address] [facility] TOE AMPUTATION 2021-07-05 22:59:00 Nomi Robles [facility] TOE AMPUTATION 2021-07-05 22:59:00 Nomi Robles [facility] POCT GLUCOSE (AUTOMATED) 2021-07-05 20:33:00 [facility]SE (AUTOMATED) 2021-07-05 20:33:00 Gm De Los Santos Uni versity [facility] POCT GLUCOSE (AUTOMATED) 2021-07-05 20:33:00 Gm De Los Santos Uni versity [facility] POCT GLUCOSE (AUTOMATED) 2021-07-05 16:17:00 Gm De Los Santos Uni versity [facility] POCT GLUCOSE (AUTOMATED) 2021-07-05 16:17:00 Gm De Los Santos Uni versity of [facility] POCT GLUCOSE (AUTOMATED) 2021-07-05 16:17:00 [facility] FOOT RIGHT W WO 2021-07-05 14:37:38 HuyJt singh [facility] CONTRAST [facility] Branch MR FOOT RIGHT W WO 2021-07-05 14:37:38 DiannaJt [facility] CONTRAST [facility] MR FOOT RIGHT W WO 2021-07-05 14:37:38 HuyJt singh [facility] CONTRAST [facility] POCT GLUCOSE (AUTOMATED) 2021-07-05 12:12:00 Gm De Los Santos [facility] POCT GLUCOSE (AUTOMATED) 2021-07-05 12:12:00 Gm De Los Santos [facility] POCT GLUCOSE (AUTOMATED) 2021-07-05 12:12:00 Gm De Los Santos [facility] MAGNESIUM 2021-07-05 10:00:00 Gm De Los Santos [facility] COMP. METABOLIC PANEL 2021-07-05 10:00:00 Gm De Los Santos [facility] ([id number]) [facility] CBC WITH DIFF 2021-07-05 10:00:00 Magali suly [facility] N-TERMINAL PRO-BNP 2021-07-05 10:00:[address] [facility] MAGNESIUM 2021-07-05 10:00:00 Magali suly [facility] COMP. METABOLIC PANEL 2021-07-05 10:00:00 Gm De Los Santos [facility] ([id number]) [facility] CBC WITH DIFF 2021-07-05 10:00:00 Gm De Los Santos [facility] N-TERMINAL PRO-BNP 2021-07-05 10:00:[address] [facility] MAGNESIUM 2021-07-05 10:00:00 Magali suly [facility] COMP. METABOLIC PANEL 2021-07-05 10:00:00 Gm De Los Santos [facility] ([id number]) [facility] CBC WITH DIFF 2021-07-05 10:00:00 Magali suly [facility] N-TERMINAL PRO-BNP 2021-07-05 10:00:00 Gm De Los Santosit y [facility] POCT GLUCOSE (AUTOMATED) 2021-07-05 00:13:00 Gm De Los Santos versreinaldo [facility] POCT GLUCOSE (AUTOMATED) 2021-07-05 00:13:00 Gm De Los Santos versity [facility] POCT GLUCOSE (AUTOMATED) 2021-07-05 00:13:00 Gm De Los Santos Uni versity [facility] POCT GLUCOSE (AUTOMATED) 2021-07-04 21:21:00 Gm De Los Santos versity of [facility] POCT GLUCOSE (AUTOMATED) 2021-07-04 21:21:00 Gm De Los Santos versity [facility] POCT GLUCOSE (AUTOMATED) 2021-07-04 21:21:00 Gm De Los Santos versity [facility] WOUND CULTURE 2021-07-04 19:28:00 [facility] WOUND CULTURE 2021-07-04 19:28:00 [facility] WOUND CULTURE 2021-07-04 19:28:00 [facility] POCT GLUCOSE (AUTOMATED) 2021-07-04 16:26:00 Gm De Los Santos versity [facility] POCT GLUCOSE (AUTOMATED) 2021-07-04 16:26:00 Gm De Los Santos Uni versity [facility] POCT GLUCOSE (AUTOMATED) 2021-07-04 16:26:00 Gm De Los Santos versity [facility] VANCOMYCIN TROUGH 2021-07-04 15:39:00 Gm De Los Santos [facility] VANCOMYCIN TROUGH 2021-07-04 15:39:00 Gm De Los Santos [facility] VANCOMYCIN TROUGH 2021-07-04 15:39:00 Gm De Los Santos [facility] POCT GLUCOSE (AUTOMATED) 2021-07-04 12:21:00 Gm De Los Santos Uni versity of [facility] POCT GLUCOSE (AUTOMATED) 2021-07-04 12:21:00 Gm De Los Santos versity [facility] POCT GLUCOSE (AUTOMATED) 2021-07-04 12:21:00 Gm De Los Santos [facility] PHOSPHORUS 2021-07-04 10:12:00 Magali suly [facility] MAGNESIUM 2021-07-04 10:12:00 Magali [facility] COMP. METABOLIC PANEL 2021-07-04 10:12:00 Magali suly [facility] ([id number]) [facility] CBC WITH DIFF 2021-07-04 10:12:00 Magali [facility] N-TERMINAL PRO-BNP 2021-07-04 10:12:[address] [facility] PHOSPHORUS 2021-07-04 10:12:00 Magali suly [facility] MAGNESIUM 2021-07-04 10:12:00 Magali suly [facility] COMP. METABOLIC PANEL 2021-07-04 10:12:00 Magali suly [facility] ([id number]) [facility] CBC WITH DIFF 2021-07-04 10:12:00 Magali [facility] N-TERMINAL PRO-BNP 2021-07-04 10:12:[address] [facility] PHOSPHORUS 2021-07-04 10:12:00 Magali suly [facility] MAGNESIUM 2021-07-04 10:12:00 Magali suly [facility] COMP. METABOLIC PANEL 2021-07-04 10:12:00 Magali suly [facility] ([id number]) [facility] CBC WITH DIFF 2021-07-04 10:12:00 Magali [facility] N-TERMINAL PRO-BNP 2021-07-04 10:12:[address] [facility] POCT GLUCOSE (AUTOMATED) 2021-07-04 00:24:00 Gm De Los Santos [facility] POCT GLUCOSE (AUTOMATED) 2021-07-04 00:24:00 Magali suly [facility] POCT GLUCOSE (AUTOMATED) 2021-07-04 00:24:00 Magali Lashasuly Norma [facility] POCT GLUCOSE (AUTOMATED) 2021-07-03 21:30:00 Magali Lashasuly Norm[facility] POCT GLUCOSE (AUTOMATED) 2021-07-03 21:30:00 Gm De Los Santos [facility] POCT GLUCOSE (AUTOMATED) 2021-07-03 21:30:00 Gm De Los Santos [facility] POCT GLUCOSE (AUTOMATED) 2021-07-03 16:19:00 Gm De Los Santos [facility] POCT GLUCOSE (AUTOMATED) 2021-07-03 16:19:00 Gm De Los Santos [facility] POCT GLUCOSE (AUTOMATED) 2021-07-03 16:19:00 Gm De Los Santos [facility] VITAMIN B12, LEVEL 2021-07-03 14:59:00 Magali [facility] C-REACTIVE PROTEIN 2021-07-03 14:59:00 Magali [facility] VITAMIN D, 25-OH 2021-07-03 14:59:00 Magali [facility] VITAMIN B12, LEVEL 2021-07-03 14:59:00 Magali [facility] C-REACTIVE PROTEIN 2021-07-03 14:59:00 Magali [facility] VITAMIN D, 25-OH 2021-07-03 14:59:00 Magali [facility] VITAMIN B12, LEVEL 2021-07-03 14:59:00 Magali [facility] C-REACTIVE PROTEIN 2021-07-03 14:59:00 Magali [facility] VITAMIN D, 25-OH 2021-07-03 14:59:00 Magali [facility] IRON PANEL 2021-07-03 14:58:00 Magali [facility] PROCALCITONIN 2021-07-03 14:58:00 Gm De Los Santos [facility] IRON PANEL 2021-07-03 14:58:00 Gm De Los Santos [facility] PROCALCITONIN 2021-07-03 14:58:00 Magali [facility] IRON PANEL 2021-07-03 14:58:00 Magali [facility] PROCALCITONIN 2021-07-03 14:58:00 Magali suly [facility] PROTHROMBIN TIME / INR 2021-07-03 14:57:00 [facility] / INR 2021-07-03 14:57:00 [facility] Los [facility] PROTHROMBIN TIME / INR 2021-07-03 14:57:00 Gm De Los Santos [facility] CT FOOT RIGHT W CONTRAST 2021-07-03 14:46:22 Gm De Los Santos Uni versity of [facility] CT FOOT RIGHT W CONTRAST 2021-07-03 14:46:22 Gm De Los Santos Uni versity of [facility] CT FOOT RIGHT W CONTRAST 2021-07-03 14:46:22 Gm De Los Santos Uni versity of [facility] LOWER EXTREMITY ARTERIAL 2021-07-03 14:14:20 Gm De Los Santos Uni versity of [place] DUPLEX BILATERAL - BY Medical Br anch VASCULAR LAB LOWER EXTREMITY ARTERIAL 2021-07-03 14:14:20 Gm De Los Santos [facility] [place] DUPLEX BILATERAL - BY Medical Br anch VASCULAR LAB LOWER EXTREMITY ARTERIAL 2021-07-03 14:14:20 Gm De Los Santos [facility] [place] DUPLEX BILATERAL - BY Medical Br anch VASCULAR LAB DUPLEX VENOUS LEGS 2021-07-03 14:14:15 Gm De Los Santos [facility] BILATERAL - BY VASCULAR Medical Branch LAB DUPLEX VENOUS LEGS 2021-07-03 14:14:15 Magali [facility] BILATERAL - BY VASCULAR Medical Branch LAB DUPLEX VENOUS LEGS 2021-07-03 14:14:15 Gm De Los Santos [facility] BILATERAL - BY VASCULAR Medical Branch LAB POCT GLUCOSE (AUTOMATED) 2021-07-03 12:36:00 Gm De Los Santos [facility] POCT GLUCOSE (AUTOMATED) 2021-07-03 12:36:00 Gm De Los Santos [facility] POCT GLUCOSE (AUTOMATED) 2021-07-03 12:36:00 Gm De Los Santos [facility] URINALYSIS 2021-07-03 06:43:00 Wong Santo [facility] URINE CULTURE 2021-07-03 06:43:00 Wong Santo [facility] URINALYSIS 2021-07-03 06:43:00 Wong Santo Stephanie [facility] URINE CULTURE 2021-07-03 06:43:00 Wong Santo [facility] URINALYSIS 2021-07-03 06:43:00 Wong Santo [facility] URINE CULTURE 2021-07-03 06:43:00 Wong Santo [facility] LACTIC ACID WHOLE BLOOD 2021-07-03 06:15:[address] [facility] LACTIC ACID WHOLE BLOOD 2021-07-03 06:15:[address] [facility] LACTIC ACID WHOLE BLOOD 2021-07-03 06:15:[address] [facility] XR FOOT 3+ VW RIGHT 2021-07-03 06:08:43 Wong Santo [facility] XR FOOT 3+ VW RIGHT 2021-07-03 06:08:43 Wong Santo [facility] XR FOOT 3+ VW RIGHT 2021-07-03 06:08:43 Wong Santo [facility] PHOSPHORUS 2021-07-03 05:59:00 Gm De Los Santos [facility] CREATINE KINASE 2021-07-03 05:59:00 Gm De Los Santos [facility] URIC ACID 2021-07-03 05:59:00 Gm De Los Santos [facility] MAGNESIUM 2021-07-03 05:59:00 Magali suly [facility] FERRITIN SERUM 2021-07-03 05:59:00 Magali [facility] TROPONIN I 2021-07-03 05:59:00 Wong Santo [facility] THYROID STIMULATING 2021-07-03 05:59:00 Magali [facility] HORMONE [facility] COMP. METABOLIC PANEL 2021-07-03 05:59:00 Wong Santo [facility] ([id number]) Medical Branch LIPID PANEL (07607)(TOTAL 2021-07-03 05:59:00 Magali suly [facility] CHOLESTEROL, [facility] TRIGLYCERIDES, HDL) SEDIMENTATION RATE 2021-07-03 05:59:00 Magali [facility] CBC WITH DIFF 2021-07-03 05:59:00 Wong Santo [facility] GLYCOSYLATED HEMOGLOBIN 2021-07-03 05:59:00 Magali [facility] (A1C) [facility] N-TERMINAL PRO-BNP 2021-07-03 05:59:00 Magali [facility] PHOSPHORUS 2021-07-03 05:59:00 Magali [facility] CREATINE KINASE 2021-07-03 05:59:00 Magali [facility] URIC ACID 2021-07-03 05:59:00 Magali [facility] MAGNESIUM 2021-07-03 05:59:00 Magali [facility] FERRITIN SERUM 2021-07-03 05:59:00 Magali [facility] TROPONIN I 2021-07-03 05:59:00 Wong Santo [facility] THYROID STIMULATING 2021-07-03 05:59:00 Magali [facility] HORMONE [facility] COMP. METABOLIC PANEL 2021-07-03 05:59:00 Wong Santo [facility] ([id number]) Medical Branch LIPID PANEL ([id number])(TOTAL 2021-07-03 05:59:00 Gm De Los Santos [facility] CHOLESTEROL, Medical Branch TRIGLYCERIDES, HDL) SEDIMENTATION RATE 2021-07-03 05:59:[address] [facility] CBC WITH DIFF 2021-07-03 05:59:00 Wong Santo [facility] GLYCOSYLATED HEMOGLOBIN 2021-07-03 05:59:00 Magali suly [facility] ([facility]) Medical [place] N-TERMINAL PRO-BNP 2021-07-03 05:59:[address] [facility] PHOSPHORUS 2021-07-03 05:59:00 Magali [facility] CREATINE KINASE 2021-07-03 05:59:00 Magali [facility] URIC ACID 2021-07-03 05:59:00 Magali [facility] MAGNESIUM 2021-07-03 05:59:00 Magali [facility] FERRITIN SERUM 2021-07-03 05:59:00 Magali [facility] TROPONIN I 2021-07-03 05:59:00 Wong Santo Stephanie [facility] THYROID STIMULATING 2021-07-03 05:59:00 Magali suly [facility] HORMONE [facility] Branch COMP. METABOLIC PANEL 2021-07-03 05:59:00 Wong Santo [facility] ([id number]) Medical Branch LIPID PANEL (14807)(TOTAL 2021-07-03 05:59:00 Gm De Los Santos [facility] CHOLESTEROL, Medical Branch TRIGLYCERIDES, HDL) SEDIMENTATION RATE 2021-07-03 05:59:[address] [facility] CBC WITH DIFF 2021-07-03 05:59:00 Wong Santo [facility] GLYCOSYLATED HEMOGLOBIN 2021-07-03 05:59:00 Magali suly [facility] (A1C) Medical [place] N-TERMINAL PRO-BNP 2021-07-03 05:59:00 Magali [facility] BLOOD CULTURE SCREEN 2021-07-03 05:58:00 Wong Santo [facility] Medical [place] COVID-19 (ID NOW RAPID 2021-07-03 05:58:00 [facility] Medical Branch LAB ONLY COVID 2021-07-03 05:58:00 Wong Santo [facility] INTERPRETATION Medical Branch BLOOD CULTURE SCREEN 2021-07-03 05:58:00 Wong Santo [facility] COVID-19 (ID NOW RAPID 2021-07-03 05:58:00 [facility] Medical Branch LAB ONLY COVID 2021-07-03 05:58:00 Wong Santo [facility] INTERPRETATION Medical Branch BLOOD CULTURE SCREEN 2021-07-03 05:58:00 Wong Santo [facility] COVID-19 (ID NOW RAPID 2021-07-03 05:58:00 Wong Santo [facility] TESTING) Medical Branch LAB ONLY COVID 2021-07-03 05:58:[address] [facility] Medical Branch EKG-12 LEAD 2021-07-03 05:40:45 Magali [facility] EKG-12 LEAD 2021-07-03 05:40:45 Magali [facility] EKG-12 LEAD 2021-07-03 05:40:45 Magali [facility] NOTICE OF PRIVACY 2021-07-03 05:30:04 Doctor Unassigned, [facility] [place] [facility] NOTICE OF PRIVACY 2021-07-03 05:30:04 Doctor Unassigned, [facility] [place] [facility] NOTICE OF PRIVACY 2021-07-03 05:30:04 Doctor Unassigned, [facility] [place] [facility] CONSENT/REFUSAL FOR 2021-07-03 05:29:41 Doctor Mi [facility] DIAGNOSIS AND TREATMENT [place] [facility] CONSENT/REFUSAL FOR 2021-07-03 05:29:41 Doctor Unassigned, Unive [facility] DIAGNOSIS AND TREATMENT [place] [facility] CONSENT/REFUSAL FOR 2021-07-03 05:29:41 Doctor FawnssBen shahid [facility] DIAGNOSIS AND TREATMENT [place] [facility] [place] Encounters Start End Encounter Admission Attending Care Care Encounter Source Date/Time Date/Time Type Type Clinicians Facility Department ID 2021-07-11 2021-07-11 Transition Elizabeth Goins [id number] Univers 00:00:00 00:00:00 of Care Aurora Kirk [id number] [id number] [facility] 403 Branch 2021-07-03 2021-07-08 [facility] Wong Santo [facility] [id number] Univers 00:38:00 12:55:00 Encounter Gm De Los Santos [id number] ity of [place] 4.2.7.2.686 [facility] [id number] [facility] 081 Branch 2021-07-07 2021-07-07 Surgery [facility] [id number] Univers 07:30:00 09:15:00 Nomi Marte [id number] [place] [id number] [facility] 020 Branch 2021-07-05 2021-07-05 Surgery [facility] [id number] Univers 17:20:00 18:24:00 Nomi Marte [id number] [place] [id number] [facility] 020 Branch 2021-07-03 2021-07-03 Emergency [facility] ERT [id number] Univers 00:27:00 00:27:00 [place] [facility] Results Test Description Test Time Test Comments Results Result Comments Source HEMOGLOBIN A1c 2021-11-09 07:51:54 Test Item Value Reference Range Interpretation Comme nts HEMOGLOBIN A1c (test code = 10.1 % 4.2-5.6 H [employer] 05510) GUIDELINES FOR HGB A1C: PREDIABETES/INC REASED RISK . . . . . . . 5.7-6.4% DIAGNOSIS OF DIABETES . . . . . . . . . >=6.5% WITH CONF IRMATION OR APPROPRIATE SYMPTOMS N OTE: ASSAY MAY BE AFFECTED BY HEM OGLOBINOPATHIES (SICKLE CELL ANEMIA, S-C DISEASE, OTHERS) OR ARTIFICIALLY LO WERED BY DECREASED RED CELL SURVIV AL (HEMOLYTIC ANEMIAS, BLOOD LOSS, ETC.). CONSIDER ALTERNATE TESTI NG OR LABORATORY CONSULTATION. COMPREHENSIVE METABOLIC [id number] 06:38:05 Test Item Value Reference Range Interpretation Comments GLUCOSE (test code = 164 MG/DL 70-99 H 2216) BUN (test code = 27 MG/DL 6-20 H 2207) CREATININE (test 1.06 MG/DL 0.80-1.40 code = 2214) eGFR (2020 CKD-EPI) 82 ML/MIN/1.73 >60 (test code = 76983) CALC BUN/CREAT (test 25 RATIO 6-28 code = 2235) SODIUM (test code = 141 MEQ/L 173-600 5730) POTASSIUM (test code 4.0 MEQ/L 3.5-5.4 = 2227) CHLORIDE (test code 103 MEQ/L 95-107 = 2214) CARBON DIOXIDE (test 23 MEQ/L 19-31 code = 2206) CALCIUM (test code = 9.6 MG/DL 8.5-10.5 2208) PROTEIN, TOTAL (test 6.9 G/DL 6.1-8.3 code = 2229) ALBUMIN (test code = 4.0 G/DL 3.5-5.2 2200) CALC GLOBULIN (test 2.9 G/DL 1.9-3.7 code = 2240) CALC A/G RATIO (test 1.4 RATIO 1.0-2.6 code = 2234) BILIRUBIN, TOTAL 0.4 MG/DL See_Comment [Automated message] (test code = 2207) The [employer] which generated this result transmit eulalio reference range : <=1.2. The refe rence range was not u sed to interpret th is result as normal/abnormal . ALKALINE PHOSPHATASE 97 U/L 40-123 (test code = 2204) AST (test code = 22 U/L 9-50 2217) ALT (test code = 22 U/L 5-50 2218) LIPID [id number] 06:38:05 Test Item Value Reference Range Interpretation Comments CHOLESTEROL (test 229 MG/DL <200 H code = 2210) TRIGLYCERIDES (test 122 MG/DL <150 code = 2232) HDL CHOLESTEROL (test 68 MG/DL >39 code = 2220) CALC LDL CHOL (test 137 MG/DL <100 H NOTE: C ALCULATED LDL code = 2237) IS BASED ON ANA-BURGESS METHOD WHICHINCLUDES ADJUSTABLE TRIGLYCERIDE:VL DL CHOLESTEROL RAT IO.THIS FACTOR VARIES B Y MEASURED TRIGLY CERIDE AND NON-HDLCHOL ESTEROL CONCENTRATIONS WITH INCREASED CALCU LATED LDL SEENIN HIGH ER TRIGLYCERIDE OR LOWER NON-HDL SPECIME NS. FOR MOREINFORMATION , SEE CLIENT ANNOUNCE MENT AT [email or web address] RISK RATIO LDL/HDL 2.01 RATIO <3.55 UN LESS (test code = 2238) OTHERWISE INDICATED, ALL TESTING PER FORMED ATCL[facility], [address] [place] [address] LABORATORY DIRE CTOR: NIKKIE TELLES M.D. CLIA NUMBER [id number] CAP ACCREDITATION N O. [id number] CBC W/AUTO DIFF WITH [id number] 04:34:50 Test Item Value Reference Range Interpretation Comments WBC (test code = 8.3 K/UL 3.5-11.0 1001) RBC (test code = 3.76 M/UL 4.50-6.10 L 1002) HEMOGLOBIN (test code 12.2 G/DL 13.5-17.0 L = 1003) HEMATOCRIT (test code 35.7 % 40.0-51.0 L = 1004) MCV (test code = 94.9 fL 80.0-99.0 1005) MCH (test code = 32.4 PG 25.0-33.0 1006) MCHC (test code = 34.2 G/DL 31.0-36.0 1007) RDW (test code = 13.0 % 11.5-15.0 1038) NEUTROPHILS (test 53.0 % code = 1008) LYMPHOCYTES (test 32.5 % code = 1010) MONOCYTES (test code 11.3 % = 1011) EOSINOPHILS (test 2.4 % code = 1012) BASOPHILS (test code 0.7 % = 1013) IMMATURE GRANULOCYTES 0.1 % (test code = 1036) NUCLEATED RBCS (test 0.0 /100 See_Comment [Autom ated code = 1065) WBC'S message] The sy stem which generated this result transmitted reference range : 0.0. The refere nce range was not u sed to interpret th is result as normal/abnormal . PLATELET COUNT (test 209 K/UL 130-400 code = 1015) ABSOLUTE NEUTROPHILS 4.37 K/UL 1.50-7.50 (test code = 1066) ABSOLUTE LYMPHOCYTES 2.68 K/UL 1.00-4.00 (test code = 1067) ABSOLUTE MONOCYTES 0.93 K/UL 0.20-1.00 (test code = 1068) ABSOLUTE EOSINOPHILS 0.20 K/UL 0.00-0.50 (test code = 1040) ABSOLUTE BASOPHILS 0.06 K/UL 0.00-0.20 (test code = 1069) ABS IMMATURE 0.01 K/UL 0.00-0.10 GRANULOCYTES (test code = 1020) ABS NUCLEATED RBCS 0.00 K/UL 0.00-0.11 (test code = 15770) POCT GLUCOSE (AUTOMATED)2021-07-08 17:00:05 Test Item Value Reference Range Interpretation Comments POCT GLU (test code = 3982074323) 174 mg/dL 70-110 H Lab Interpretation (test code = Abnormal 63986-8) [facility] GLUCOSE (AUTOMATED)2021-07-08 17:00:05 Test Item Value Reference Range Interpretation Comments POCT GLU (test code = 8263169025) 174 mg/dL 70-110 H Lab Interpretation (test code = Abnormal 77544-7) [facility] GLUCOSE (AUTOMATED)2021-07-08 13:07:13 Test Item Value Reference Range Interpretation Comments POCT GLU (test code = 7076198441) 230 mg/dL 70-110 H Lab Interpretation (test code = Abnormal 36647-1) [facility] GLUCOSE (AUTOMATED)2021-07-08 13:07:13 Test Item Value Reference Range Interpretation Comments POCT GLU (test code = 3353260239) 230 mg/dL 70-110 H Lab Interpretation (test code = Abnormal 97247-5) [facility] Culture - Peripheral # [id number] 07:01:05 Test Item Value Reference Range Interpretation Comments Blood Culture-Aerobic No organisms No growth Previo us (test code = 51129-3) isolated prelim inary verified result was Culture In Progress on 07/03/2021 at 05 01 CDTPrevious preliminary verified result was No growth a t 24 hours on 07/04/2021 at 02 01 CDTPrevious preliminary verified result was No growth a t 48 hours on 07/05/2021 at 02 01 CDTPrevious preliminary verified result was No growth a t 72 hours on 07/06/2021 at 02 01 CDT Blood No organisms No growth Previous Culture-Anaerobic isolated preliminar y (test code = 23135-7) verifi ed result was Culture In Progress on 07/03/2021 at 05 CDTPrevious preliminary verified result was No growth a t 24 hours on 07/04/2021 at 02 CDTPrevious preliminary verified result was No growth a t 48 hours on 07/05/2021 at 02 CDTPrevious preliminary verified result was No growth a t 72 hours on 07/06/2021 at 02 01 CDT Lab Interpretation Normal (test code = 38875-5) [facility] Culture - Peripheral # [id number] 07:01:05 Test Item Value Reference Range Interpretation Comments Blood Culture-Aerobic No organisms No growth Previo us (test code = 19755-0) isolated prelim inary verified result was Culture In Progress on 07/03/2021 at 05 CDTPrevious preliminary verified result was No growth a t 24 hours on 07/04/2021 at 02 CDTPrevious preliminary verified result was No growth a t 48 hours on 07/05/2021 at 02 CDTPrevious preliminary verified result was No growth a t 72 hours on 07/06/2021 at 02 01 CDT Blood No organisms No growth Previous Culture-Anaerobic isolated preliminar y (test code = 24706-9) verifi ed result was Culture In Progress on 07/03/2021 at 05 01 CDTPrevious preliminary verified result was No growth a t 24 hours on 07/04/2021 at 02 01 CDTPrevious preliminary verified result was No growth a t 48 hours on 07/05/2021 at 02 CDTPrevious preliminary verified result was No growth a t 72 hours on 07/06/2021 at 02 01 CDT Lab Interpretation Normal (test code = 19723-3) [facility] Culture - Peripheral # [id number] 07:01:05 Test Item Value Reference Range Interpretation Comments Blood Culture-Aerobic No organisms No growth Previo us (test code = 56415-9) isolated prelim inary verified result was Culture In Progress on 07/03/2021 at 05 01 CDTPrevious preliminary verified result was No growth a t 24 hours on 07/04/2021 at 02 CDTPrevious preliminary verified result was No growth a t 48 hours on 07/05/2021 at 11 08 CDTPrevious preliminary verified result was No growth a t 72 hours on 07/06/2021 at 02 CDT Blood No organisms No growth Previous Culture-Anaerobic isolated preliminar y (test code = 13819-0) verifi ed result was Culture In Progress on 07/03/2021 at 05 CDTPrevious preliminary verified result was No growth a t 24 hours on 07/04/2021 at 11 08 CDTPrevious preliminary verified result was No growth a t 48 hours on 07/05/2021 at 02 CDTPrevious preliminary verified result was No growth a t 72 hours on 07/06/2021 at 02 01 CDT Lab Interpretation Normal (test code = 83997-9) [facility] Culture - Peripheral # [id number] 07:01:05 Test Item Value Reference Range Interpretation Comments Blood Culture-Aerobic No organisms No growth Previo us (test code = 63486-7) isolated prelim inary verified result was Culture In Progress on 07/03/2021 at 05 CDTPrevious preliminary verified result was No growth a t 24 hours on 07/04/2021 at 02 01 CDTPrevious preliminary verified result was No growth a t 48 hours on 07/05/2021 at 02 CDTPrevious preliminary verified result was No growth a t 72 hours on 07/06/2021 at 02 01 CDT Blood No organisms No growth Previous Culture-Anaerobic isolated preliminar y (test code = 56001-8) verifi ed result was Culture In Progress on 07/03/2021 at 05 01 CDTPrevious preliminary verified result was No growth a t 24 hours on 07/04/2021 at 02 01 CDTPrevious preliminary verified result was No growth a t 48 hours on 07/05/2021 at 02 01 CDTPrevious preliminary verified result was No growth a t 72 hours on 07/06/2021 at 02 01 CDT Lab Interpretation Normal (test code = 20004-6) [facility] GLUCOSE (AUTOMATED)2021-07-07 22:16:33 Test Item Value Reference Range Interpretation Comments POCT GLU (test code = 7783568639) 293 mg/dL 70-110 H Lab Interpretation (test code = Abnormal 17299-1) [facility] GLUCOSE (AUTOMATED)2021-07-07 22:16:33 Test Item Value Reference Range Interpretation Comments POCT GLU (test code = 2722956394) 293 mg/dL 70-110 H Lab Interpretation (test code = Abnormal 70451-5) [facility] [id number] 20:37:10 Test Item Value Reference Range Interpretation Comments Case Report (test code Surgical Pathology ? ? = [id number]) ?Case: [id number] ? Authorizing Provider: ?Nomi Robles Jr., DPM ? Collected: ? 07/05/2021 1842 ?Ordering Location: ? ? [facility] ? ? ?Received: ?07/05/2021 1948 ? [facility] Center ?Pathologist: ? Eudardo Ordaz MD PHD ?Specimen: ? ?TOE, RIGHT FOURTH TOE ? Final Diagnosis (test i1vsrYSlKCVrm4ytZDCoxZ code = 6707863969) FuZzEwMzNcZnRuYmpcdWMx IHtccnRmMVxlcGljOTYwMV awuaJrDZGymJHlE2Dgrinl JLbmLO3wAP2eqLiqyDSpyJ XqVFBdWzWlb7plr641aEWq x4cnNIGSqftquXm3yHtcB8 0yg5H8ItvyJ94lwYXtRBT5 XUTsPYJyoBPmFSPpEGT7HD EnwQRvG4rqHUTpOE9ruses ZDdbXWkfQNRsyWF0IFIjmE BhW5ObHMRlYUbeGEApmvk8 MfEzGy7xqIRgwJedAFhgHF JkXHBsYWluXGZzMjBccGFy SIIqOTIVM3nNBURSXBUGGG QRE1UqCLOYMYJXSLQMO527 EPHrqwPbPXSjCTKGL5QPLF 1PRsWDHY4DVbFIXHXJUKRN QLGSBHZKOH2KBCJXLEzDUT lUSVNccGFyICAgICAtIFBS C2hNUKQSSWGDCQbXSDbGOe FKACJNVUAGHUPNKHJrE9Ag B3KQPY3LAKUOIBLTX3bgMW QwBNIgKV1mW3aSKwAKSqFt A83BHABYQAHMLFPzLkZOCF XUHN7SSZ7ZYyfEBaCkXMZJ IFZJQUJMRSAgXHBhclxwYX LiUuBcEnRDwMZqUDKsEZ6k AV4PQeArEZzvAdEiXqZrNC AgMToyMyBQTVxwYXJcZnMy JBazNZU7j9emgIMsQJDfiD YjZoGdGPImELYco6zcVQJd bGFuZzEwMzNcZnRuYmpcdW CpENZwFlXsg9yjh566hTUc c3dbMXSjPxL2zWZcCOMunS okzoy1vAqlIqSoVULnm9js cyBcZmNoYXJzZXQwIEFyaW AfT041RQSdDTcpq4jbx6Ug LECpiWYgx2D0QBNOYQbaUc LvH360m1yxd1dwsaIamAJ2 AVCbFGB3QJjctcHnucG1BH brbUXdMuH9EEjtzfJpHYsj fzAwgiGkKno6QQWaI169RA F0nSgqr7khNOS3XRQeESRk IrtnNu4iuGOhL017GQOaZE TKPOWopJa0AIHsshXqkxIm pGNVn929A689j7unVESuta ZlyDzTpyroh9pdQ870LHBn cGVydzEyMjQwXHBhcGVyaD E7OVDvTE4ncigkKXyuKZwn WIVpenY8VGEieKNaT2EcRO EqDY0jjlljESJ0JMwxUCRi AOU6VeCzDFGhb1Gptqf0Xw Oyzs0acm86ALJ3g6SwvHsb SQH1WFS3ZjPnGc0yxZGsIQ BwBT6sFqTdhJKeKWMvnu94 mEyqFRwnxgMluB8zZgJtBT QlfJOsEBLnSR4cxHBtLBDc gO5mgduiIVMjVsPmegljHR DhvOaocuKaIe8cvTgjALY8 XFriY1ksxF2nNuI1BWrjG8 rjnO6dYGy7EOiiuTL8XDEv sO9bPB7vaejif8taFQixJK sjHVUnkiO7hrO5NXMnbALn A0UxeP7wKYBkLZ2eseyvk2 fgQWU3XAxmBVRxRWT7ZvPz XBCku1Yzbcf4UwXbm7VsaZ YqVHdbS86rd764MHAgeaOj W0zjbLWvbjfmuYIewmmjUB ngmwD9VSCaAPBwIFpwKIEg XGZzMjBcbGFuZzEwMzNcaG ljaFxmMVxkYmNoXGYxXGxv X8xgAlEzI1XfOJBwHvGapV ImWDdnrZV1NQUfEFRds71d oWp7LBNgxgndr5IyTEDcwG CruNHlfG2eakFxa7vhIUIx RGCrFVBrN2BuLKX2cVSmKH CqcQDntIB4KN9vcpLjPL1z ZGUgYnkgcmVzaWRlbnRzLC VfGWrxm1sdRR1uTILvcPvr wG8kgKO6UBEty5hdbRIldP Aks3jja0LskbUePQodAFXk LEztLTMmQFZlQO8dJZJrxY VxuzLdx7P8WtacjSLldbgr AgplfxK3LHodeqphXTLbVE oeZ9teEhLpZMZmtPhhBumn t6GmKSHnDOMrHzadgSDfuB 0= Clinical Information OSTEOMYELITIS/GANGRENE (test code = OF RIGHT FOURTH TOE 7845831891) Gross Description (test q6nptFMwUHMpbMQSTERjTy code = 8192661866) dwcsPgHWLgzEWcV6Valhyi ONddCC2fAB5ybCwiyMMgaM KhOS7NWUDjBvQsOYFrjSBa eiAcUyClNSVzlPDaoJN1LL WmQL9wllybNYxuYNdnMCYz hyC4OPVqrPFtO5EmOFWjOH 5yfbzlXEX7DRvqxT1digXD IsjdBn9hzRGfcHmcIzTbIe NoYXJzZXQwXGZuaWwgQXJp AVd1fU9KFjvrYHF1PRQNFt cuMQSpOR2Bb5srTBIwjFHn WDR6IYhqkTCiZQFpSQKzCC p8ODObFLhzhUFfOY4ulLka HbaktQfcf4KlmWNhVNeiXA YvIGMbEUslZCJuYG4GGmQp JGlDPlXfQlL9VfF1BVm9FW GKEpTrWqQwRRQ6LRqiJKip SEe7ENp7HXfZSlBlXsP5Bf A2CSqwCPV9YPL8HLyggSSa IFxcZiBBcmlhbCBcXGZzID BmVIfwIvjoQUufK00fxIfd qB6cJbToKVMHXzOMO3InWQ BhciANClxwbGFpblxlcGlj TmVzdERvYzEgDQpcbHRycG FyXGxpbjBccmluMCANClxs dHJjaFxmczIyIFNwZWNpbW WyAZNkoAXumvMpIFp8ABNb mP9lNy1hdYBoeS9kuNWhPK jqTHM9wZWfSJQaYPMiPSFs YI86R3DlaeCbBSghUIsmji PtOaEdORKptmbsgPSxGq93 cnRoIHRvZSIsIGFuZCBjb2 6oxOP8vqOgCaZkZOOxug1y eR1kOWLxKOMtAH41MYwnEt 5vFYqzQa9jZOWvTBN0hCqm eLKojbFnsHKusuYeT0TlEA VaJYQslCB3mFQlfHK3YNSi wtMbbNdnmVLcN1NblGAks5 ohaO5oUZFbGRGzw54qGNQn z6IujGyceInqoSNvCCI4gh ZvP6AeJHg0KL0hovCsPdSv E50cpPHjuVujWLddiX4gaP wnQXSgbM9pGI3xXSItFyVu vRctz4KiRMLtg2KviLwmjt TvWZKhgG4cWGYRlVZwcO7t VWxiWD1kxCxfLiQjnzkzBh W7bDFkIVRvrJGcSFyetYls auZbwRprpERfiIW4xJaxl0 SpOFXbqF2jlsKphB1sVSIa ZXJlIGlzIGEgdGFuLXllbG emxaM6edE5UB7omCJkgQgl SDFqO2YtOCEpJJFqPXVeb3 4gKGFwcHJveGltYXRlbHkg Ji34NDncOp71VOWyNYTbm9 LglWZoNM1jPFWvXPLgp8Fs UMusl0BsFaWfZDPsGhK8iQ NpzU9sYJR8jOXqYAukGvP2 alU4xMRgjTSksKDoLMChHT BsYXRlcmFsIHNpZGVzIHdo hAVuMBwcda6qfkTpACPcHH Snj5sqNHNsXFUqs9E2KWUg h6I5VCEuNODjR3Vgq61uzE TuG9xuKIMgBWEcQOXpkCRm hiDnSbHgP35lIxAkfOM6vU GnHc2zFNIypCBtfjQeC1Jv YXRlZCBzdXJmYWNlLiAgVG hlIHJlbWFpbmRlciBvZiB0 lUXnm3qmwfXuwvZpxGusyH IuuUJsgop7rWKaQFDqoFMj a4z7zTLid8svYEJsj7CbwM ldTz4dBLIlTTMhw69pVQpu NHMzI8Bwu87rSNP6ccXuPC ZlYWwgdGFuLXllbGxvdyB0 kaB9MF2uodWmYROrkWcgbM u6XHGxyl63wfAlsXRea6St ZmFjZXMuICBSZXByZXNlbn EbyBw7XIQeOKA6tQ4dtiFe wuRxl2DhnQn0pJYjEOsvOA YoEWNzMNHns2rkm4ruzvvq OBToSHzomRJpR2S3xE5xEU 6aSDHzIXNdBJQLMg8pyVQa ZD3ZWKUoaaGXBaHyH5Neo3 2fW57wOMrdmEWsZO1OXLR0 IMKgbN3gy97siZD2lKJzlN BlqyJzZHW2pE0vPE6renkx eogvEE0zOxAxHCgvTN21tD JadYkihSPvPL7STXL6VTOl owKfGIibIFE7aIQ4wBG7SX Kji4VzBzWaLXjjrFOekGKm OKfqrTusklo5UJZbG3Oql5 3uEByyEC57fNEotVzmSHRg jOyqv0yzCeMpKANukLKgFh irDBGsl46iwXVnVF0IOEQ2 MQSat3NsHDZmP9Szw77xAT QpvFVld7EtfAB6pHJqGDQa p6gac1kggiqiUYDwTBeknS HhB1Z8fH1xKMQnfnTQDcos MHHtTHxNCRR4DKVpxlAbbQ uzFYDGOV9BFESnCJjqCBRg bABVIIW1EP8jPFligAIdxr ofHHXxN6FuN1IedlOxxLQt WLFrjjTke7mlUNQ0QIGqgH WqcNLwUnPvHsadFFR4IBku e9vrILK0DBVhjOFgkSCxFB yvHxBrMekuDZFrD5YyB8Dv snQ7YNc5 Disclaimer (test code = k5hipFDbFLGqk0jmZRGqoJ [id number]) FuZzEwMzNcZnRuYmpcdWMx RBwibdGjCVrmp1PzX9CsAp AwMFxhbnNpXGRlZmxhbmcx LOLmNSW4shQuBUVpRYyxFI FmXCfmNo5yvOZchQzzOvTn ZKKib7qlplIMQUnrLoNnN4 63JMZvWGpfg0opg9DkFSIz vOGmv8V8FQEYwpneuDl7pF qgH55ub3M6EeafI8pyGQMm TJHjY1QaFK1wLCBdOdo2DD S1JCE9MKAzGAXtI2UvTH8b PNAciAQpYMu7p9wquVglSW ThBHZ1p6mnYKcxctIlDV0b tq3tcKb4c1ggmoEvHGPoEP NyxMOQSWMqZ0WroMmyCi6v mWe6bEnrZmkqIRU4Xre4MB 0bud05wmf0jZtzOGElyurn CvK4VQqeUBFlxzfnALm9NB bxSHKupMD3THHhjUBrS0Vx TYDkAH7iinr5NCL2CDguGS GqKmO2HXYkeNEtEHJlgDzv LHmvi059REA3TiWaKB7vC9 Obx5X2xY3sjPUsDTGmoMZa WyPfJLFyej2wlGKcSRcsm8 GdJUD7jxN8hZYbrPCrASHi GL88Pjpbh1XpQrble0LgA3 4ugVI4LIlxm6huVP8nCaU9 lyOiOSlkt4tciG3tYlZ1ZV xmLC3qJO3jLMFsiV1woiod XHBnYnJkcmhlYWRccGdicm VfLz7wrAoaFNF3EYmpY7sl rQ1dGjC9MHzcG4byuL2kSL n5CMadsPB4LFScsC9gRW8i atroc4zwYGmfKCvdORNrxa C4tpJ3TODorAKoE2WoxK9b JIXfHV6zhzkkw2fwMRO7IR fpTBAmKWL5EpRyNZRfp8Px lnq6VpKqo8AcrHVkPRniU7 7ed289AFNnwuLeH3tczORy tmkhbFKhamnoQFzfstS1XH XdwvMbo4KyRCXnYUR1NMfc WKdxkXJiYWDkvPqmj0idA5 RscGFyXHBsYWluXGYxXGZz MjBcbGFuZzEwMzNcaGljaF dlGJzlFxXzCNIoRMdhT9mw HoYtA8IsHYMoSoWkxRTeC4 ggVGhpcyByZXBvcnQgbWF5 JLvyS1e3TGKzjsIasIu9sx JpOjEhUKXtPKF4DRsgsGJn VCXwy7ObpgiziVFmKw3pwZ HzQGCzsU8iDVJmNFOtMWhg AH8ldUm4GGACnRBaeCGjSh FKVIQxRE56nxYvQVESnizx i4R3OEbbYRVkn7EtbSQiG5 pic8JbQTJdt47tNN4qv1L6 a2vxKPY1QE8hz0AeGXEbpT HhuESxDDVsa7Jqjqpft2Kd YVKppuEae8MnINViyjObzD NqRFOnnyEiff6xxpQvQVOn DURbI4HkcepjiGbehzFoMP Rtem4rjlWrBGB1YUQBMPKz LHMub8WvnM8qqNFONFT2gY Tbie8djaGKvOBtLHPmgr90 VEBaOX9uI7pfQTXiSRYrar UrrDYdh8GrWTSdlZJ2kOCv XK6RViEGk54jSXBkROFKak BaOTSgaEcteWT4qqO9sU8t IChGREEpLlx+IFRoZSBGRE XeVG9rxtCmc3RpayUjpUtw CUAjiJMdu0LlhKPkf5MosE trj9VllRNglASkRQ8uHCCh clxwYXIgVVRNQiBMYWJvcm E5e6OeJFBvKLEoFJP9wVgb xun3KZScbP1vZHHzN3sfaz inWZjjRDTvq3OyoC0dwVNB xWSge6PslLSwuBPPxDEhXF 4fufKqSVaXEYiGUBG1krJu BINjd1PoKAkhA4otW02cwV adbCi3wLP9KAM2tC5oXtt+ IFxwYXJccGFyIEFwcHJvcH SjQOEfqDwexnWqB0GmrlBu dC1naTDmsmBgFK3uUW4rD8 I5eICpDKVjplNut1faZXsi dmUgYmVlbiByZXZpZXdlZC Oay1OmTLqrAEY1HHwhubHk bmNsdWRpbmcgSCZFLCBTcG AvfIFbZNH7YTdrpfCsfpKd HH8qtV2nsVcjuF9lcTWgpG F8kxdjDJLvPNRqtLyzRRFg KU0ctCEhYCMisbLTiZeunG RsgO7hH8ZcCXFtPRXclw1z ZGMfyW7aVEgym6AwldtvXU KpBCVpTRVuuhZdjj5kQOQd gTPLVQ2YBXkunYZuk4Cace GlQ1jKKEC6OHPrUhBpLplg BPDvaJPykJUfUTVpih54KV MyuM8pfPzmFNNvnR6uqG7j xWskcN1hRjKtNcDmWRytRO 4mLSMrW1cbuILtESIvRUYb L4deFzBieI0rpDevJUbsGe NqDnIoVVxeWWO8aU== Embedded Images (test code = [id number]) [facility] [id number] 20:37:10 Test Item Value Reference Range Interpretation Comments Case Report (test code Surgical Pathology ? ? = [id number]) ?Case: [id number] ? Authorizing Provider: ?Nomi Robles Jr., JANAY ? Collected: ? 07/05/2021 1842 ?Ordering Location: ? ? [facility] ? ? ?Received: ?07/05/2021 1948 ? [facility] ?Pathologist: ? Orlin, Eduardo, PHD ?Specimen: ? ?TOE, RIGHT FOURTH TOE ? Final Diagnosis (test r1ofuWVkPYQrg1iqHDWhcU code = [id number]) FuZzEwMzNcZnRuYmpcdWMx IHtccnRmMVxlcGljOTYwMV qdliQtDBUgwEXhH2Oygqfi WZhmNF7yTU5piSjcgCGqfC DtZVViCeCgq9bkg540jEFn s4rrZXZBsganoVh0gQrzM8 0cd9D2BaagB99qdWWcRJC3 SKPyHRFjoEMuYKDkUME2ZQ FttGHoR8hzJPDyMG7vcdez ZTbgBTeiFPXnyXF5AZEidQ BuL3EkJRKvHSsqLPMevcm6 UaBcZm6ciBEolJuyGQtiYH JkXHBsYWluXGZzMjBccGFy UKJcMIQTK0yDMWUVEYEPAD URX7IpZOHLUFGYLQFVR770 CMSbjlYqTYEcLILFD4IAXF 6XLkKUDP1VXbJVGDBISCPE WPZQQIARFF4UABXYYBzYSM lUSVNccGFyICAgICAtIFBS O7bCCMFDFFKJDLfXJBaEJu WHBETRBNDXETEETNVsB4Za R8QYOU3NVVINNPZWR0rbQG GzVYWfQG1jW1cUHzDAVzDs W22TDTVYSUVZRZTrVgAFUT QHEM9RZK8IMoeMKwUzPZEP IFZJQUJMRSAgXHBhclxwYX NxWfQhMyLIyDIiOWRwWK9r XF2KKyUyQQlbYqVjMsEvOA AgMToyMyBQTVxwYXJcZnMy MHxgIDQ6g7jdbSVsYDWybH JkBhPdFKNqEBFzt4ckSETb bGFuZzEwMzNcZnRuYmpcdW KqKXWnZfVdo8wyb719aZQb w9piYGBvClJ2zZXhBTEupZ uvoib9tAqiIeGkSZOrg4cl cyBcZmNoYXJzZXQwIEFyaW RsY125TORiMDthm2xri7Kt LBYalKHzn1X4XNIAUFufPx LyT528k9ucx6oyuwGokWR4 RDZtEJV9ZAcgpqZvjcU2FY excRQmJzE9YTemgaTuVEex jzYzpfRjRzm7FAKxU911OB W3rQulo2jkETL7CLQnTJCk GgulCr0mrXTaR685SHQdWD BHXFQdiJx5JAIbbqXujfSd vQRUs860T083x1ubNUUnjl OxxEaHvsuxo4doC101TAUv cGVydzEyMjQwXHBhcGVyaD S1CVTtAS5gnaluEBqdQBnz JYInpeW2DTCraOCqS0FcLU BfFA6yylmaQHX7AFsnCWRx VWQ5OgSmXPOdg8Kruhi0Fz Tcig5fxh63XDW8b8AjyWmn AEH7JAB6XmMnKf7stARiXZ DiRW9mUmMjhBRzAXKwki76 lRtyPOgpcqSlzQ7yUuDcHQ QizWZdVABvSU6daLPpLJAx cW8cwrgvJQPsRtIjbffhIV JxzNovbqBjNd1bbLqoFMI1 WDxcD8lipG5gTxL7DFmbB6 dycL7qRCy4SKysyYX6PMZf zF7tVF4wrgdry8uqOCwtOE piTQPplvT6gsW6LSTkqLBh M4EauH8tGDFsQN1taddpn9 qhWLO3YUiyLEQqXYV0KlHs TCRjx0Qjvjt6SkHkh8YupI IuUQpyH21ec520EYEltwQl D3wvsJBqbgkofABivnhuFJ finiQ6UZAeUGLcIOexJELf XGZzMjBcbGFuZzEwMzNcaG ljaFxmMVxkYmNoXGYxXGxv A7hpStNuA0UfQOIvQvKnoU AoULfcsEH2ZBBqTPXtg13s yCv5OFCjbwmxv6KrCQEjdX FffAMwjV2xbrAcp4mvXKCd DFZbCSLhQ8CzHWT1hIMwQF XikQZqcMI3RO5jbdGeZE0o ZGUgYnkgcmVzaWRlbnRzLC FtLHpbv0nzUB2cWFPpmLyx mB3dcEJ0WUVqi4shtUUyhH Sik8lxz7AqhgXjUXwaRWWr HNlpKNEhNZHaFJ9rKMYydS JgiyNqz7H0IieaqLXylidu WxsjyjO7OClkymopUFCrYJ dpL6tzEjOsJOFykSebQfsn c3IlQQQfSEXoEjkczFBriX 0= Clinical Information OSTEOMYELITIS/GANGRENE (test code = OF RIGHT FOURTH TOE [id number]) Gross Description (test o5fchDWqQYJahQZSJEQvEn code = [id number]) lsozVtHLJkqZVaT2Uqzgcl LSwnFF4vDB6qdUqwaUKusH PfQT2RZNKwHpMvPVYhdTPm esWjLsZfAKRzdNOvlBP5GL TbPJ9nalkdLVcnXMyaGNEx buZ7USIzfOMqJ4BfAHMvAB 7wjfnxSQD2JXlecM2hsaWH AdllWq7lsTPwrIqxFfQlUo NoYXJzZXQwXGZuaWwgQXJp RLq2qD0BNpgsXWG3JHEJYd phYDWmMM2Iw2crLDOsvJYh KHJ1DDvmwBXoHQSeCKCyBN o5WOQnZThuaDVlCA1ftUvr QuhrvIvpu5PirTObHLqqDF DqEGKfPHpcVXMwOK9WGiXn PMqEEdMpRzZ4QrE5VCw8DA DHEmYhNvKrRHX9WKroFYuj GTp2LTx9ZQyBGtZiCkE3Pr T3VDgxAQV8HWN3EZaktOSi IFxcZiBBcmlhbCBcXGZzID KqWKhsVegsCUzdJ35eaTzm pM7bDyAhOWUXJiTSF4EbUE BhciANClxwbGFpblxlcGlj TmVzdERvYzEgDQpcbHRycG FyXGxpbjBccmluMCANClxs dHJjaFxmczIyIFNwZWNpbW EoBOKrtCBhadQcAYu7ZVYc mD8bMw4iaIZieO3hoWFvSD vmJKI4gLZkSCUqCFToSMIh YA08P6IiocToZLoiKNbmnp BnUpHbQBHwhjemlWMrNy42 cnRoIHRvZSIsIGFuZCBjb2 6fjHJ1jzEyVuSzYKXodm3r lU3qLOOoSFEhXK58DHgkKu 5tZOvtRz8jKDZhFYO2xRzp aJXymkPkdGDsjnHqO0QfSI VqZQTggES6yWYhmRI5MFPz osUtxGizeXUfM9HtuLPoz0 cdbU7jKQWtGQTok22bCVTv u3KlhYtpeNwazANqJOF7xx EvS8BwREr6WE0nzyHmWwMv V28qaVRwyTauZAjddF3orN mkGOCdqC1oPT4rHHBlMyWf oUije1VaOURzr1ZfmVlzdm IuZDQigF6rWCSSeXMknD6i YGbqVD1koHviJdNucmbdPm V7zKThBBZgwJXxRRbtgDag pkHxiVrurVQqzCG8aRynr2 CmISIxrF5smlNjcE7tNEQw ZXJlIGlzIGEgdGFuLXllbG kidaM6smD4SH0suJItnRhc XGVvC8UaFSTzTTRxXLGun4 4gKGFwcHJveGltYXRlbHkg Di77PPopUy51EHAyXGTet2 PdrHIwYS5yCCCoNVLmd2Fa PUgbx4GwYnZtDKFbCgE7xG EhsL5nCSP9dRUyJZkgYkC1 vjK0zHApqVNytTMpDBTnRU BsYXRlcmFsIHNpZGVzIHdo gUAlZDpmxq6hawRjKWWzQH Cey4ktJNLoZGFrb3S7AZQi k1S5HHAyDXEnA6Eyn58cnQ QdI7mmKBMkISKyFBNcpBBv frPuGsHzJ47gMcGiwQY4rV CgCj4nFCVjxUAdxxBaO2Bk YXRlZCBzdXJmYWNlLiAgVG hlIHJlbWFpbmRlciBvZiB0 dFNno3qibnXxcfIesAybaQ TheOVqfxm0sKRiGYAicYQu d6v2iXFrl2wrAVPog8ClhN enYt8vMKNqVGDwr09pJOdc CSPyX6Tlp49rVXC6bzTwAY ZlYWwgdGFuLXllbGxvdyB0 yyE7IX0efbIlVSCcdUuwjX w9XUXwyh38tjGbgKFit7Hw ZmFjZXMuICBSZXByZXNlbn VkoDr9LCBnHST1jR6cbjEm cdDjt2VdgWz2sFOnHXbxVL PoXRFpXYShr4nmy6rzyxdw PQOgQPgzkGUyM3E1vV5sDG 8iNYBpGVXtWJMEEn4igBRw VQ0FZRDjxuDETvJmE9Nba9 5dM26xKWrpnTKnEF1RQEB2 ZNJmsV4yo83cqRC3zTHhuA AjqeNyBCY4mT0dRH5idjxh sqtsTT9gPjHfUDtcEA01rK TepSeymWFsGH7PHNS0QISq osHeKQjrOJG0cZV5vIQ6FV Kbh6HoZnUpRRsdyMZyqNPu YOqhyQubmkw5UOIfW4Ltw9 7cRPqqMX99nBBrcXztPQLq sTkou3nbCvHlVWWkcYFcGl ocBCJgx65ylPEzTP7ZYRC2 CKQpb3NoSPYmD1Ngo14pUE KvnHWjq3ZqaZS2rXCoGEJc z0bfj1ymezgpTQQeCWsteJ UuZ4W3fH4zWDKhcmDIXlni YGWnERqJSSX1GZTdyqUdeQ bgMEYFOU8DFFWsGYstKWHj hYTZOEW1YA5uARwpiJMnff cnKEEdS9FpK4SnpzDrmGUz HKOqydRda8kuERH3TUWdbZ XseCKeGgMrLqkqXKH9CIdf d2zyGIO6OESotZRrfOXrXO btXaFhWqcgVFRcQ6UkQ2Qp dyO6TJd3 Disclaimer (test code = u4puiYDtSMAgp7ljXPErkN [id number]) FuZzEwMzNcZnRuYmpcdWMx HKcqovXrEKfmw3DmW6FcGy AwMFxhbnNpXGRlZmxhbmcx HUEdJVR0amZgSJLjCAxhZK XmOVmyFx2icPFgaRwuGdXt QMAkb2goedXOJCglQqYbW2 78AWYxGCjqd6wuk1IpECPn nZMvx4N9XDGFkgvqqUl9mN pkK90qe6J7HwoiV8nnVBTy XBBkM5QcVJ4xXNKoNys3CB J4CJN6BYClHQHyL4SpFK4u DXZtuEWrKRc2u0mppCycKZ PiMVF0m8kwKCzytnQyVY4p ce4plWx2m6bbvnFnAXRuFQ GjpBQTWDOmO2EgtDmdMd1n yHn5kKpbMgtfOBW5Njs7XJ 0oww77eba5kFwdZJWltiuq ZwQ1FWpqXYDhxhjvDNk5AB uoYXLzxMO4BDBqiYLeQ6Kg XVMeOG7qple4VFX0KDzhKZ UkWmJ9MAQsxPXwJBQphUrs FPats790QYW5GiKwLL3vM8 Bcx6U3sQ8eaYHmZVDmySIo FbXwTIAqle5lqLDqUNnik9 PeNHI5alR5lPTvjIJfKJIo IO73Srdou9WqWiycq8KdX5 2aoYB4GHqcu2kaSC0sNaE2 suZbQStkg5biyN6eBtF8BB hbHG9rTZ5wGSKgmY1iudfd XHBnYnJkcmhlYWRccGdicm RuPu7reBlnBVM3WFfxY9dw oN3iYnD5SGviV3prcQ0sIH f6YBqmqVI8FIZizW1tLY9g zgqym7lzNJwdLRpvDDJlre T0llB6EEFyxGEhU8YsqB6j NKKdSG5sunryo5heTJA1XW odIYPmJNH6DbAxUEKaa7Gg vjd4ZvPmt4TrqDZqEJeqP4 6qr072NIBytrXsX8qofBFo ucuiaDCazzjlSHzwnuQ7XY AvktPcg4TgTQJwAAV8YRwi XFoopBGaNHCfaHhbc3olF4 RscGFyXHBsYWluXGYxXGZz MjBcbGFuZzEwMzNcaGljaF phWXdrWkAoRAAzXCcaX5gx BfJlX1YlSEHjDsFerWXwN1 ggVGhpcyByZXBvcnQgbWF5 ESzaV1q0LWTrnoLweCl0oj ItAhToMWHzQOB7FNlslJXj CSJsp8MnvygtiBZqOe4glT SyZPGblB8pTHMxOYEkHRxx OO3wcTq5GQIMpZUugHSlGh HXNUBlNK47ygFpELEUmbtd t5O4DSrrCMHpp5JmpBUrB6 eiw6WzJWPyd31hOH1nt4Z8 n5mdYDY1XQ6bq7EoFSJamH PurIEcTVDbf8Oswjexy0Cw VNCkuuXsk2XpMSWxgoLfmU TtAKVzbcRiak3eldBjYPHe PCYaZ0MbzlurtNgilsThBI Vbnf3kzgBpQSP0OAPLABYs CGTpi5GgjH1vvUVTDCT2eZ Xoev5dryFTuOHrKFCnmu92 XYJaKJ1pR7txIXLdIMYuig RevHPvb2NsYREgfUA6mACu DS5UVfDAr63zAYGbBBAIsx TmTFMsfMqjjXT5myL8oA1c IChGREEpLlx+IFRoZSBGRE ZdLT1ddrOru0QixeRxpHdw HVLmwJGhv1EypTNcu6EjjB gya8VgmORkhJLbBI3iYNAr clxwYXIgVVRNQiBMYWJvcm N3f0NmSGTgNCDeZQL8uLly cjy2NLKrkY2yJOTcH6pmzt rvRPnyYHJaa3PupL4wsVFW aYSfj3LmqPEqiYVTjPFgXI 8wfmQcHUzGSLsYFWN3rxAt CZFdv8OpXTaqT8txP65igQ vltNx6gDT4QIP2kB4sCjj+ IFxwYXJccGFyIEFwcHJvcH JeVUUddUychoHdL4MiurWj gV5etKSkuqYgTT1hPA5qU8 C5aVWjXWFitzJgs2ttFJds dmUgYmVlbiByZXZpZXdlZC Fol2NmITepAZL6WPxpkvFg bmNsdWRpbmcgSCZFLCBTcG FcuIRkOLP9BUedfqZrziNu IL8urZ3czSyogZ3htYDguC Q3vojoERDlZJUqfPbaBXOp PJ8gkTLjOIFtamOXgSpzgF CygW1zW8PaCWHlKDTjhz4c XYVjcQ8aONyqv0IzigihVY ShDCDaSUBjbqEpzf2hXVDh yQEMHF8NAFkwsQVpv1Ioca NiS9sARLX8RACgFtOrYkai YVTcnDVkyAFeQCQkaj23QQ AuyQ8eqWncYCJkqY1ckZ6p vKumgA6aSqJlScVgTXutGW 5xQMPdR8mcfFZnVIPxNSFj F3edGcAyjU0gjOidVZvbWk SpTgVaBYoiEBW1cT== Embedded Images (test code = 7586661646) [facility] GLUCOSE (AUTOMATED)2021-07-07 17:04:49 Test Item Value Reference Range Interpretation Comments POCT GLU (test code = 7324181527) 295 mg/dL 70-110 H Lab Interpretation (test code = Abnormal 96600-0) [facility] GLUCOSE (AUTOMATED)2021-07-07 17:04:49 Test Item Value Reference Range Interpretation Comments POCT GLU (test code = 8510022514) 295 mg/dL 70-110 H Lab Interpretation (test code = Abnormal 59442-3) [facility] GLUCOSE (AUTOMATED)2021-07-07 14:55:34 Test Item Value Reference Range Interpretation Comments POCT GLU (test code = 6724632622) 191 mg/dL 70-110 H Lab Interpretation (test code = Abnormal 42772-2) [facility] GLUCOSE (AUTOMATED)2021-07-07 14:55:34 Test Item Value Reference Range Interpretation Comments POCT GLU (test code = 1379964446) 191 mg/dL 70-110 H Lab Interpretation (test code = Abnormal 42688-6) [facility] METABOLIC PANEL (NA, K, CL, CO2, GLUCOSE, BUN, CREATININE, CA)2021-07-07 13:14:37 Test Item Value Reference Range Interpretation Comments NA (test code = 139 mmol/L 135-145 5852960090) K (test code = 3.9 mmol/L 3.5-5.0 3780897621) CL (test code = 111 mmol/L 98-108 H 3666136585) CO2 TOTAL (test code = 22 mmol/L 23-31 L 8497707338) AGAP (test code = 2-16 9671091248) BUN (test code = 19 mg/dL 7-23 4317382116) GLUCOSE (test code = 189 mg/dL 70-110 H 7806361865) CREATININE (test code = 0.87 mg/dL 0.60-1.25 0308149293) CALCIUM (test code = 8.5 mg/dL 8.6-10.6 L 6979633787) eGFR (test code = mL/min/1.73m2 0443570985) BRYSON (test code = BRYSON) Association of Glomerular Filtration Rate (GFR) and Staging of Kidney Disease* + --+ --+ ------+| GFR (mL/min/1.73 m2) ?| With Kidney Damage ?| ?Without Kidney Damage+ --------+ --------+ +| ?>90 ?| ?Stage one ?| ? Normal ?+ ---+ ---+ -------+| ?60-89 ?| ?Stage two ?| ? Decreased GFR ? + --+ --+ ------+| ?30-59 ?| ?Stage three ?| ? Stage three ? + --+ --+ ------+| ?15-29 ?| ?Stage four ? | ? Stage four ?+ ---+ ---+ -------+| ?<15 (or dialysis) ? ?| ?Stage five ? | ? Stage five ?+ ---+ ---+ -------+ *Each stage assumes the associated GFR level has been in effect for at least three months. ?Stages 1 to 5, with or without kidney disease, indicate chronic kidney disease. Notes: Determination of stages one and two (with eGFR >59mL/min/1.73 m2) requires estimation of kidney damage for at least three months as defined by structural or functional abnormalities of the kidney, manifested by either:Pathological abnormalities or Markers of kidney damage (including abnormalities in the composition of the blood or urine or abnormalities in imaging tests). Lab Interpretation Abnormal (test code = 77438-3) [facility] (NA, K, CL, CO2, GLUCOSE, BUN, CREATININE, CA)2021-07-07 13:14:37 Test Item Value Reference Range Interpretation Comments NA (test code = 139 mmol/L 135-145 4541417040) K (test code = 3.9 mmol/L 3.5-5.0 1395541830) CL (test code = 111 mmol/L 98-108 H 8180581919) CO2 TOTAL (test code = 22 mmol/L 23-31 L 6426116366) AGAP (test code = 2-16 3559437791) BUN (test code = 19 mg/dL 7-23 4616531611) GLUCOSE (test code = 189 mg/dL 70-110 H 4855665583) CREATININE (test code = 0.87 mg/dL 0.60-1.25 0948842657) CALCIUM (test code = 8.5 mg/dL 8.6-10.6 L 3133069224) eGFR (test code = mL/min/1.73m2 9071670991) BRYSON (test code = BRYSON) Association of Glomerular Filtration Rate (GFR) and Staging of Kidney Disease* + --+ --+ ------+| GFR (mL/min/1.73 m2) ?| With Kidney Damage ?| ?Without Kidney Damage+ --------+ --------+ +| ?>90 ?| ?Stage one ?| ? Normal ?+ ---+ ---+ -------+| ?60-89 ?| ?Stage two ?| ? Decreased GFR ? + --+ --+ ------+| ?30-59 ?| ?Stage three ?| ? Stage three ? + --+ --+ ------+| ?15-29 ?| ?Stage four ? | ? Stage four ?+ ---+ ---+ -------+| ?<15 (or dialysis) ? ?| ?Stage five ? | ? Stage five ?+ ---+ ---+ -------+ *Each stage assumes the associated GFR level has been in effect for at least three months. ?Stages 1 to 5, with or without kidney disease, indicate chronic kidney disease. Notes: Determination of stages one and two (with eGFR >59mL/min/1.73 m2) requires estimation of kidney damage for at least three months as defined by structural or functional abnormalities of the kidney, manifested by either:Pathological abnormalities or Markers of kidney damage (including abnormalities in the composition of the blood or urine or abnormalities in imaging tests). Lab Interpretation Abnormal (test code = 61801-7) [facility] GLUCOSE (AUTOMATED)2021-07-07 13:02:32 Test Item Value Reference Range Interpretation Comments POCT GLU (test code = 6273357681) 174 mg/dL 70-110 H Lab Interpretation (test code = Abnormal 53869-9) [facility] GLUCOSE (AUTOMATED)2021-07-07 13:02:32 Test Item Value Reference Range Interpretation Comments POCT GLU (test code = 0929962126) 174 mg/dL 70-110 H Lab Interpretation (test code = Abnormal 20408-5) [facility] WITH [id number] 11:32:04 Test Item Value Reference Range Interpretation Comments WBC (test code = See_Comment [Automated 6690-2) message] The sy stem which generated this result transmitted reference range : 4.20 - 10.70 10*3/?L. The reference range was not used to interpret this result as normal/abnormal . RBC (test code = See_Comment L [Automated 789-8) message] The sy stem which generated this result transmitted reference range : 4.26 - 5.52 10*6/?L. The reference range was not used to interpret this result as normal/abnormal . HGB (test code = 10.1 g/dL 12.2-16.4 L 718-7) HCT (test code = 30.5 % 38.4-49.3 L 4544-3) MCV (test code = 93.8 fL 81.7-95.6 787-2) MCH (test code = 31.1 pg 26.1-32.7 785-6) MCHC (test code = 33.1 g/dL 31.2-35.0 786-4) RDW-SD (test code = 43.2 fL 38.5-51.6 12600-0) RDW-CV (test code = 12.5 % 12.1-15.4 788-0) PLT (test code = See_Comment [Automated 777-3) message] The sy stem which generated this result transmitted reference range : 150 - 328 10*3/ ?L. The reference r shanda was not used to interpret this result as normal/abnormal . MPV (test code = 12.2 fL 9.8-13.0 46438-5) NRBC/100 WBC (test See_Comment [Automat ed code = 8815602759) message] The system which generated this result transmitted reference range : 0.0 - 10.0 /100 WBCs. The refer ence range was not u sed to interpret th is result as normal/abnormal . NRBC x10^3 (test code <0.01 See_Comment [Auto mated = 2740820976) message] The s ystem which generated this result transmitted reference range : 10*3/?L. The reference range was not used to interpret this result as normal/abnormal . GRAN MAT (NEUT) % 66.0 % (test code = 770-8) IMM GRAN % (test code 0.50 % = 9166713839) LYMPH % (test code = 19.7 % 736-9) MONO % (test code = 11.3 % 5905-5) EOS % (test code = 2.1 % 713-8) BASO % (test code = 0.4 % 706-2) GRAN MAT x10^3(ANC) 6.82 10*3/uL 1.99-6.95 (test code = 4462473706) IMM GRAN x10^3 (test 0.05 10*3/uL 0.00-0.06 code = 7130866260) LYMPH x10^3 (test code 2.03 10*3/uL 1.09-3.23 = 731-0) MONO x10^3 (test code 1.17 10*3/uL 0.36-1.02 H = 742-7) EOS x10^3 (test code = 0.22 10*3/uL 0.06-0.53 711-2) BASO x10^3 (test code 0.04 10*3/uL 0.01-0.09 = 704-7) Lab Interpretation Abnormal (test code = 36424-2) [facility] WITH [id number] 11:32:04 Test Item Value Reference Range Interpretation Comments WBC (test code = See_Comment [Automated 5990-2) message] The sy stem which generated this result transmitted reference range : 4.20 - 10.70 10*3/?L. The reference range was not used to interpret this result as normal/abnormal . RBC (test code = See_Comment L [Automated 979-8) message] The sy stem which generated this result transmitted reference range : 4.26 - 5.52 10*6/?L. The reference range was not used to interpret this result as normal/abnormal . HGB (test code = 10.1 g/dL 12.2-16.4 L 718-7) HCT (test code = 30.5 % 38.4-49.3 L 4544-3) MCV (test code = 93.8 fL 81.7-95.6 787-2) MCH (test code = 31.1 pg 26.1-32.7 785-6) MCHC (test code = 33.1 g/dL 31.2-35.0 786-4) RDW-SD (test code = 43.2 fL 38.5-51.6 89581-9) RDW-CV (test code = 12.5 % 12.1-15.4 788-0) PLT (test code = See_Comment [Automated 777-3) message] The sy stem which generated this result transmitted reference range : 150 - 328 10*3/ ?L. The reference r shanda was not used to interpret this result as normal/abnormal . MPV (test code = 12.2 fL 9.8-13.0 84151-4) NRBC/100 WBC (test See_Comment [Automat ed code = 2291305993) message] The system which generated this result transmitted reference range : 0.0 - 10.0 /100 WBCs. The refer ence range was not u sed to interpret th is result as normal/abnormal . NRBC x10^3 (test code <0.01 See_Comment [Auto mated = 3837547350) message] The s ystem which generated this result transmitted reference range : 10*3/?L. The reference range was not used to interpret this result as normal/abnormal . GRAN MAT (NEUT) % 66.0 % (test code = 770-8) IMM GRAN % (test code 0.50 % = 6125929989) LYMPH % (test code = 19.7 % 736-9) MONO % (test code = 11.3 % 5905-5) EOS % (test code = 2.1 % 713-8) BASO % (test code = 0.4 % 706-2) GRAN MAT x10^3(ANC) 6.82 10*3/uL 1.99-6.95 (test code = 1863949852) IMM GRAN x10^3 (test 0.05 10*3/uL 0.00-0.06 code = 7488082143) LYMPH x10^3 (test code 2.03 10*3/uL 1.09-3.23 = 731-0) MONO x10^3 (test code 1.17 10*3/uL 0.36-1.02 H = 742-7) EOS x10^3 (test code = 0.22 10*3/uL 0.06-0.53 711-2) BASO x10^3 (test code 0.04 10*3/uL 0.01-0.09 = 704-7) Lab Interpretation Abnormal (test code = 11217-6) [facility] GLUCOSE (AUTOMATED)2021-07-07 05:09:45 Test Item Value Reference Range Interpretation Comments POCT GLU (test code = 9913812679) 144 mg/dL 70-110 H Lab Interpretation (test code = Abnormal 58970-7) [facility] GLUCOSE (AUTOMATED)2021-07-07 05:09:45 Test Item Value Reference Range Interpretation Comments POCT GLU (test code = 2331389259) 144 mg/dL 70-110 H Lab Interpretation (test code = Abnormal 09966-6) [facility] GLUCOSE (AUTOMATED)2021-07-06 21:53:08 Test Item Value Reference Range Interpretation Comments POCT GLU (test code = 5747053869) 175 mg/dL 70-110 H Lab Interpretation (test code = Abnormal 47666-3) [facility] GLUCOSE (AUTOMATED)2021-07-06 21:53:08 Test Item Value Reference Range Interpretation Comments POCT GLU (test code = [id number]) 175 mg/dL 70-110 H Lab Interpretation (test code = Abnormal 99186-2) [facility] WITH [id number] 18:53:33 Test Item Value Reference Range Interpretation Comments WBC (test code = See_Comment H [Automated 6690-2) message] The sy stem which generated this result transmitted reference range : 4.20 - 10.70 10*3/?L. The reference range was not used to interpret this result as normal/abnormal . RBC (test code = See_Comment L [Automated 789-8) message] The sy stem which generated this result transmitted reference range : 4.26 - 5.52 10*6/?L. The reference range was not used to interpret this result as normal/abnormal . HGB (test code = 10.4 g/dL 12.2-16.4 L 718-7) HCT (test code = 31.0 % 38.4-49.3 L 4544-3) MCV (test code = 92.8 fL 81.7-95.6 787-2) MCH (test code = 31.1 pg 26.1-32.7 785-6) MCHC (test code = 33.5 g/dL 31.2-35.0 786-4) RDW-SD (test code = 42.3 fL 38.5-51.6 46252-6) RDW-CV (test code = 12.4 % 12.1-15.4 788-0) PLT (test code = See_Comment [Automated 777-3) message] The sy stem which generated this result transmitted reference range : 150 - 328 10*3/ ?L. The reference r shanda was not used to interpret this result as normal/abnormal . MPV (test code = 12.0 fL 9.8-13.0 00984-3) NRBC/100 WBC (test See_Comment [Automat ed code = [id number]) message] The system which generated this result transmitted reference range : 0.0 - 10.0 /100 WBCs. The refer ence range was not u sed to interpret th is result as normal/abnormal . NRBC x10^3 (test code <0.01 See_Comment [Auto mated = [id number]) message] The s ystem which generated this result transmitted reference range : 10*3/?L. The reference range was not used to interpret this result as normal/abnormal . GRAN MAT (NEUT) % 71.5 % (test code = 770-8) IMM GRAN % (test code 0.40 % = [id number]) LYMPH % (test code = 16.7 % 736-9) MONO % (test code = 10.6 % 5905-5) EOS % (test code = 0.5 % 713-8) BASO % (test code = 0.3 % 706-2) GRAN MAT x10^3(ANC) 7.86 10*3/uL 1.99-6.95 H (test code = 5713118545) IMM GRAN x10^3 (test 0.04 10*3/uL 0.00-0.06 code = [id number]) LYMPH x10^3 (test code 1.84 10*3/uL 1.09-3.23 = 731-0) MONO x10^3 (test code 1.16 10*3/uL 0.36-1.02 H = 742-7) EOS x10^3 (test code = 0.06 10*3/uL 0.06-0.53 711-2) BASO x10^3 (test code 0.03 10*3/uL 0.01-0.09 = 704-7) Lab Interpretation Abnormal (test code = 16240-9) [facility] WITH [id number] 18:53:33 Test Item Value Reference Range Interpretation Comments WBC (test code = See_Comment H [Automated 6690-2) message] The sy stem which generated this result transmitted reference range : 4.20 - 10.70 10*3/?L. The reference range was not used to interpret this result as normal/abnormal . RBC (test code = See_Comment L [Automated 789-8) message] The sy stem which generated this result transmitted reference range : 4.26 - 5.52 10*6/?L. The reference range was not used to interpret this result as normal/abnormal . HGB (test code = 10.4 g/dL 12.2-16.4 L 718-7) HCT (test code = 31.0 % 38.4-49.3 L 4544-3) MCV (test code = 92.8 fL 81.7-95.6 787-2) MCH (test code = 31.1 pg 26.1-32.7 785-6) MCHC (test code = 33.5 g/dL 31.2-35.0 786-4) RDW-SD (test code = 42.3 fL 38.5-51.6 56937-2) RDW-CV (test code = 12.4 % 12.1-15.4 788-0) PLT (test code = See_Comment [Automated 777-3) message] The sy stem which generated this result transmitted reference range : 150 - 328 10*3/ ?L. The reference r shanda was not used to interpret this result as normal/abnormal . MPV (test code = 12.0 fL 9.8-13.0 50336-3) NRBC/100 WBC (test See_Comment [Automat ed code = 1538468648) message] The system which generated this result transmitted reference range : 0.0 - 10.0 /100 WBCs. The refer ence range was not u sed to interpret th is result as normal/abnormal . NRBC x10^3 (test code <0.01 See_Comment [Auto mated = [id number]) message] The s ystem which generated this result transmitted reference range : 10*3/?L. The reference range was not used to interpret this result as normal/abnormal . GRAN MAT (NEUT) % 71.5 % (test code = 770-8) IMM GRAN % (test code 0.40 % = 9946763024) LYMPH % (test code = 16.7 % 736-9) MONO % (test code = 10.6 % 5905-5) EOS % (test code = 0.5 % 713-8) BASO % (test code = 0.3 % 706-2) GRAN MAT x10^3(ANC) 7.86 10*3/uL 1.99-6.95 H (test code = 6535406298) IMM GRAN x10^3 (test 0.04 10*3/uL 0.00-0.06 code = 2947892136) LYMPH x10^3 (test code 1.84 10*3/uL 1.09-3.23 = 731-0) MONO x10^3 (test code 1.16 10*3/uL 0.36-1.02 H = 742-7) EOS x10^3 (test code = 0.06 10*3/uL 0.06-0.53 711-2) BASO x10^3 (test code 0.03 10*3/uL 0.01-0.09 = 704-7) Lab Interpretation Abnormal (test code = 27607-3) [facility] WITH [id number] 18:53:33 Test Item Value Reference Range Interpretation Comments WBC (test code = See_Comment H [Automated 6690-2) message] The sy stem which generated this result transmitted reference range : 4.20 - 10.70 10*3/?L. The reference range was not used to interpret this result as normal/abnormal . RBC (test code = See_Comment L [Automated 159-8) message] The sy stem which generated this result transmitted reference range : 4.26 - 5.52 10*6/?L. The reference range was not used to interpret this result as normal/abnormal . HGB (test code = 10.4 g/dL 12.2-16.4 L 718-7) HCT (test code = 31.0 % 38.4-49.3 L 4544-3) MCV (test code = 92.8 fL 81.7-95.6 787-2) MCH (test code = 31.1 pg 26.1-32.7 785-6) MCHC (test code = 33.5 g/dL 31.2-35.0 786-4) RDW-SD (test code = 42.3 fL 38.5-51.6 29016-2) RDW-CV (test code = 12.4 % 12.1-15.4 788-0) PLT (test code = See_Comment [Automated 777-3) message] The sy stem which generated this result transmitted reference range : 150 - 328 10*3/ ?L. The reference r shanda was not used to interpret this result as normal/abnormal . MPV (test code = 12.0 fL 9.8-13.0 05661-8) NRBC/100 WBC (test See_Comment [Automat ed code = 4410481718) message] The system which generated this result transmitted reference range : 0.0 - 10.0 /100 WBCs. The refer ence range was not u sed to interpret th is result as normal/abnormal . NRBC x10^3 (test code <0.01 See_Comment [Auto mated = 2904877253) message] The s ystem which generated this result transmitted reference range : 10*3/?L. The reference range was not used to interpret this result as normal/abnormal . GRAN MAT (NEUT) % 71.5 % (test code = 770-8) IMM GRAN % (test code 0.40 % = 4195519841) LYMPH % (test code = 16.7 % 736-9) MONO % (test code = 10.6 % 5905-5) EOS % (test code = 0.5 % 713-8) BASO % (test code = 0.3 % 706-2) GRAN MAT x10^3(ANC) 7.86 10*3/uL 1.99-6.95 H (test code = 9474343295) IMM GRAN x10^3 (test 0.04 10*3/uL 0.00-0.06 code = 5468233166) LYMPH x10^3 (test code 1.84 10*3/uL 1.09-3.23 = 731-0) MONO x10^3 (test code 1.16 10*3/uL 0.36-1.02 H = 742-7) EOS x10^3 (test code = 0.06 10*3/uL 0.06-0.53 711-2) BASO x10^3 (test code 0.03 10*3/uL 0.01-0.09 = 704-7) Lab Interpretation Abnormal (test code = 71799-0) [facility] BEFORE the 4th dose scheduled at 1200, but no more than60 mins before the dose is due.2021-07-06 17:34:01 Test Item Value Reference Range Interpretation Comments VANCO TROUGH (test code 13.4 ug/mL 10.0-20.0 = 3700051391) BRYSON (test code = BRYSON) Toxic Range: ?>20 ug/mL 15-20 ug/mL is recommended for severe infection or when Vancomycin ELISE is greater than or equal to 2. Lab Interpretation (test Normal code = 05989-3) [facility] Please draw trough BEFORE the 4th dose scheduled at 1200, but no more than60 mins before the dose is due.2021-07-06 17:34:01 Test Item Value Reference Range Interpretation Comments VANCO TROUGH (test code 13.4 ug/mL 10.0-20.0 = 9338559620) BRYSON (test code = BRYSON) Toxic Range: ?>20 ug/mL 15-20 ug/mL is recommended for severe infection or when Vancomycin ELISE is greater than or equal to 2. Lab Interpretation (test Normal code = 91594-7) [facility] draw trough BEFORE the 4th dose scheduled at 1200, but no more than60 mins before the dose is due.2021-07-06 17:34:01 Test Item Value Reference Range Interpretation Comments VANCO TROUGH (test code 13.4 ug/mL 10.0-20.0 = 4334284405) BRYSON (test code = BRYSON) Toxic Range: ?>20 ug/mL 15-20 ug/mL is recommended for severe infection or when Vancomycin ELISE is greater than or equal to 2. Lab Interpretation (test Normal code = 17657-9) [facility] 16:47:55 Test Item Value Reference Range Interpretation Comments POCT GLU (test code = 4017044073) 321 mg/dL 70-110 H Lab Interpretation (test code = Abnormal 04204-1) [facility] GLUCOSE (AUTOMATED)2021-07-06 16:47:55 Test Item Value Reference Range Interpretation Comments POCT GLU (test code = 0587248079) 321 mg/dL 70-110 H Lab Interpretation (test code = Abnormal 09365-0) [facility] GLUCOSE (AUTOMATED)2021-07-06 16:47:55 Test Item Value Reference Range Interpretation Comments POCT GLU (test code = 7286418865) 321 mg/dL 70-110 H Lab Interpretation (test code = Abnormal 22691-0) [facility] GLUCOSE (AUTOMATED)2021-07-06 12:56:24 Test Item Value Reference Range Interpretation Comments POCT GLU (test code = 9852929928) 351 mg/dL 70-110 H Lab Interpretation (test code = Abnormal 00054-8) [facility] GLUCOSE (AUTOMATED)2021-07-06 12:56:24 Test Item Value Reference Range Interpretation Comments POCT GLU (test code = 0121457130) 351 mg/dL 70-110 H Lab Interpretation (test code = Abnormal 10866-4) [facility] GLUCOSE (AUTOMATED)2021-07-06 12:56:24 Test Item Value Reference Range Interpretation Comments POCT GLU (test code = 1848766914) 351 mg/dL 70-110 H Lab Interpretation (test code = Abnormal 00989-5) [facility]. METABOLIC PANEL ([id number])2021-07-06 12:27:31 Test Item Value Reference Range Interpretation Comments NA (test code = 136 mmol/L 135-145 2529836151) K (test code = 4.9 mmol/L 3.5-5.0 6050811068) CL (test code = 106 mmol/L 98-108 4948075412) CO2 TOTAL (test code = 18 mmol/L 23-31 L 5039510608) AGAP (test code = 2-16 4064467097) BUN (test code = 19 mg/dL 7-23 2438666944) GLUCOSE (test code = 346 mg/dL 70-110 H 6529943576) CREATININE (test code = 0.91 mg/dL 0.60-1.25 5234546918) TOTAL BILI (test code = 0.4 mg/dL 0.1-1.5 7637133924) CALCIUM (test code = 8.5 mg/dL 8.6-10.6 L 2587299748) T PROTEIN (test code = 5.9 g/dL 6.3-8.2 L 8575730999) ALBUMIN (test code = 2.9 g/dL 3.5-5.0 L 0763790302) ALK PHOS (test code = 105 U/L 34-122 9628678929) ALTv (test code = 19 U/L 5-50 1742-6) AST(SGOT) (test code = 24 U/L 13-40 7545600580) eGFR (test code = mL/min/1.73m2 9131938982) BRYSON (test code = BRYSON) Association of Glomerular Filtration Rate (GFR) and Staging of Kidney Disease* + --+ --+ ------+| GFR (mL/min/1.73 m2) ?| With Kidney Damage ?| ?Without Kidney Damage+ --------+ --------+ +| ?>90 ?| ?Stage one ?| ? Normal ?+ ---+ ---+ -------+| ?60-89 ?| ?Stage two ?| ? Decreased GFR ? + --+ --+ ------+| ?30-59 ?| ?Stage three ?| ? Stage three ? + --+ --+ ------+| ?15-29 ?| ?Stage four ? | ? Stage four ?+ ---+ ---+ -------+| ?<15 (or dialysis) ? ?| ?Stage five ? | ? Stage five ?+ ---+ ---+ -------+ *Each stage assumes the associated GFR level has been in effect for at least three months. ?Stages 1 to 5, with or without kidney disease, indicate chronic kidney disease. Notes: Determination of stages one and two (with eGFR >59mL/min/1.73 m2) requires estimation of kidney damage for at least three months as defined by structural or functional abnormalities of the kidney, manifested by either:Pathological abnormalities or Markers of kidney damage (including abnormalities in the composition of the blood or urine or abnormalities in imaging tests). Lab Interpretation Abnormal (test code = 79230-7) [facility] METABOLIC PANEL ([id number])2021-07-06 12:27:31 Test Item Value Reference Range Interpretation Comments NA (test code = 136 mmol/L 135-145 2637147786) K (test code = 4.9 mmol/L 3.5-5.0 9993925360) CL (test code = 106 mmol/L 98-108 3565769564) CO2 TOTAL (test code = 18 mmol/L 23-31 L 6623050913) AGAP (test code = 2-16 0832378151) BUN (test code = 19 mg/dL 7-23 9045909998) GLUCOSE (test code = 346 mg/dL 70-110 H 6864039723) CREATININE (test code = 0.91 mg/dL 0.60-1.25 9966655125) TOTAL BILI (test code = 0.4 mg/dL 0.1-1.5 7174273930) CALCIUM (test code = 8.5 mg/dL 8.6-10.6 L 2934337505) T PROTEIN (test code = 5.9 g/dL 6.3-8.2 L 2783744444) ALBUMIN (test code = 2.9 g/dL 3.5-5.0 L 7243641468) ALK PHOS (test code = 105 U/L 34-122 5711882401) ALTv (test code = 19 U/L 5-50 1742-6) AST(SGOT) (test code = 24 U/L 13-40 6949949370) eGFR (test code = mL/min/1.73m2 1481641396) BRYSON (test code = BRYSON) Association of Glomerular Filtration Rate (GFR) and Staging of Kidney Disease* + --+ --+ ------+| GFR (mL/min/1.73 m2) ?| With Kidney Damage ?| ?Without Kidney Damage+ --------+ --------+ +| ?>90 ?| ?Stage one ?| ? Normal ?+ ---+ ---+ -------+| ?60-89 ?| ?Stage two ?| ? Decreased GFR ? + --+ --+ ------+| ?30-59 ?| ?Stage three ?| ? Stage three ? + --+ --+ ------+| ?15-29 ?| ?Stage four ? | ? Stage four ?+ ---+ ---+ -------+| ?<15 (or dialysis) ? ?| ?Stage five ? | ? Stage five ?+ ---+ ---+ -------+ *Each stage assumes the associated GFR level has been in effect for at least three months. ?Stages 1 to 5, with or without kidney disease, indicate chronic kidney disease. Notes: Determination of stages one and two (with eGFR >59mL/min/1.73 m2) requires estimation of kidney damage for at least three months as defined by structural or functional abnormalities of the kidney, manifested by either:Pathological abnormalities or Markers of kidney damage (including abnormalities in the composition of the blood or urine or abnormalities in imaging tests). Lab Interpretation Abnormal (test code = 84634-9) [facility]. METABOLIC PANEL ([id number])2021-07-06 12:27:31 Test Item Value Reference Range Interpretation Comments NA (test code = 136 mmol/L 135-145 7421697989) K (test code = 4.9 mmol/L 3.5-5.0 4706251265) CL (test code = 106 mmol/L 98-108 8739456698) CO2 TOTAL (test code = 18 mmol/L 23-31 L 8673446541) AGAP (test code = 2-16 1042556690) BUN (test code = 19 mg/dL 7-23 6547298708) GLUCOSE (test code = 346 mg/dL 70-110 H 3667096005) CREATININE (test code = 0.91 mg/dL 0.60-1.25 7267423707) TOTAL BILI (test code = 0.4 mg/dL 0.1-1.0 6722814106) CALCIUM (test code = 8.5 mg/dL 8.6-10.6 L 9468148279) T PROTEIN (test code = 5.9 g/dL 6.3-8.2 L 0211950594) ALBUMIN (test code = 2.9 g/dL 3.5-5.0 L 0599103623) ALK PHOS (test code = 105 U/L 34-122 2771963453) ALTv (test code = 19 U/L 5-50 1742-6) AST(SGOT) (test code = 24 U/L 13-40 7026931225) eGFR (test code = mL/min/1.73m2 8696678861) BRYSON (test code = BRYSON) Association of Glomerular Filtration Rate (GFR) and Staging of Kidney Disease* + --+ --+ ------+| GFR (mL/min/1.73 m2) ?| With Kidney Damage ?| ?Without Kidney Damage+ --------+ --------+ +| ?>90 ?| ?Stage one ?| ? Normal ?+ ---+ ---+ -------+| ?60-89 ?| ?Stage two ?| ? Decreased GFR ? + --+ --+ ------+| ?30-59 ?| ?Stage three ?| ? Stage three ? + --+ --+ ------+| ?15-29 ?| ?Stage four ? | ? Stage four ?+ ---+ ---+ -------+| ?<15 (or dialysis) ? ?| ?Stage five ? | ? Stage five ?+ ---+ ---+ -------+ *Each stage assumes the associated GFR level has been in effect for at least three months. ?Stages 1 to 5, with or without kidney disease, indicate chronic kidney disease. Notes: Determination of stages one and two (with eGFR >59mL/min/1.73 m2) requires estimation of kidney damage for at least three months as defined by structural or functional abnormalities of the kidney, manifested by either:Pathological abnormalities or Markers of kidney damage (including abnormalities in the composition of the blood or urine or abnormalities in imaging tests). Lab Interpretation Abnormal (test code = 61469-9) [facility] GLUCOSE (AUTOMATED)2021-07-05 22:49:47 Test Item Value Reference Range Interpretation Comments POCT GLU (test code = 3301533061) 175 mg/dL 70-110 H Lab Interpretation (test code = Abnormal 17815-1) [facility] GLUCOSE (AUTOMATED)2021-07-05 22:49:47 Test Item Value Reference Range Interpretation Comments POCT GLU (test code = 8310703482) 175 mg/dL 70-110 H Lab Interpretation (test code = Abnormal 62187-5) [facility] GLUCOSE (AUTOMATED)2021-07-05 22:49:47 Test Item Value Reference Range Interpretation Comments POCT GLU (test code = 3381143470) 175 mg/dL 70-110 H Lab Interpretation (test code = Abnormal 49638-9) [facility]:49:05 Test Item Value Reference Range Interpretation Comments POCT GLU (test code = 8286213052) 170 mg/dL 70-110 H Lab Interpretation (test code = Abnormal 30618-1) [facility] 22:49:05 Test Item Value Reference Range Interpretation Comments POCT GLU (test code = 3419658646) 185 mg/dL 70-110 H Lab Interpretation (test code = Abnormal 67320-8) [facility] 22:49:05 Test Item Value Reference Range Interpretation Comments POCT GLU (test code = 5969205304) 170 mg/dL 70-110 H Lab Interpretation (test code = Abnormal 31543-7) [facility] GLUCOSE (AUTOMATED)2021-07-05 22:49:05 Test Item Value Reference Range Interpretation Comments POCT GLU (test code = 6607243731) 185 mg/dL 70-110 H Lab Interpretation (test code = Abnormal 96333-6) [facility] GLUCOSE (AUTOMATED)2021-07-05 22:49:05 Test Item Value Reference Range Interpretation Comments POCT GLU (test code = 8251723310) 170 mg/dL 70-110 H Lab Interpretation (test code = Abnormal 16916-7) [facility] GLUCOSE (AUTOMATED)2021-07-05 22:49:05 Test Item Value Reference Range Interpretation Comments POCT GLU (test code = 9671784068) 185 mg/dL 70-110 H Lab Interpretation (test code = Abnormal 66480-8) [facility] GLUCOSE (AUTOMATED)2021-07-05 11:56:21 Test Item Value Reference Range Interpretation Comments POCT GLU (test code = 7174258475) 167 mg/dL 70-110 H Lab Interpretation (test code = Abnormal 90640-5) [facility] 11:56:21 Test Item Value Reference Range Interpretation Comments POCT GLU (test code = 6938355741) 167 mg/dL 70-110 H Lab Interpretation (test code = Abnormal 54187-6) [facility] GLUCOSE (AUTOMATED)2021-07-05 11:56:21 Test Item Value Reference Range Interpretation Comments POCT GLU (test code = 8649905025) 167 mg/dL 70-110 H Lab Interpretation (test code = Abnormal 60058-2) [facility] GLUCOSE (AUTOMATED)2021-07-05 11:56:03 Test Item Value Reference Range Interpretation Comments POCT GLU (test code = 2433955484) 109 mg/dL 70-110 Lab Interpretation (test code = Normal 40805-9) [facility] GLUCOSE (AUTOMATED)2021-07-05 11:56:03 Test Item Value Reference Range Interpretation Comments POCT GLU (test code = 4842850315) 109 mg/dL 70-110 Lab Interpretation (test code = Normal 94266-7) [facility] GLUCOSE (AUTOMATED)2021-07-05 11:56:03 Test Item Value Reference Range Interpretation Comments POCT GLU (test code = 1410631902) 109 mg/dL 70-110 Lab Interpretation (test code = Normal 32598-5) [id number] 11:48:19 Test Item Value Reference Range Interpretation Comments NT-proBNP (test code 452 pg/mL See_Comment H [Autom ated = 1183272193) message] The system which generated this result transmitted reference range : <=125. The reference range was not used to interpret this result as normal/abnormal . BRYSON (test code = BRYSON) Biotin has been reported to cause a negative bias, interpret results relative to patient's use of biotin. Lab Interpretation Abnormal (test code = 23409-1) [id number] 11:48:19 Test Item Value Reference Range Interpretation Comments NT-proBNP (test code 452 pg/mL See_Comment H [Autom ated = 9672198370) message] The system which generated this result transmitted reference range : <=125. The reference range was not used to interpret this result as normal/abnormal . BRYSON (test code = BRYSON) Biotin has been reported to cause a negative bias, interpret results relative to patient's use of biotin. Lab Interpretation Abnormal (test code = 61691-4) [id number] 11:48:19 Test Item Value Reference Range Interpretation Comments NT-proBNP (test code 452 pg/mL See_Comment H [Autom ated = 1198619671) message] The system which generated this result transmitted reference range : <=125. The reference range was not used to interpret this result as normal/abnormal . BRYSON (test code = BRYSON) Biotin has been reported to cause a negative bias, interpret results relative to patient's use of biotin. Lab Interpretation Abnormal (test code = 41351-6) [facility] Test Item Value Reference Range Interpretation Comments MAGNESIUM (test code = 4508749531) 2.1 mg/dL 1.7-2.4 Lab Interpretation (test code = Normal 32282-6) [facility]2021-09-28 11:42:19 Test Item Value Reference Range Interpretation Comments MAGNESIUM (test code = 6339793042) 2.1 mg/dL 1.7-2.4 Lab Interpretation (test code = Normal 69344-3) [facility]2021-09-28 11:42:19 Test Item Value Reference Range Interpretation Comments MAGNESIUM (test code = 3637701937) 2.1 mg/dL 1.7-2.4 Lab Interpretation (test code = Normal 11462-2) [facility]. METABOLIC PANEL ([id number])2021-07-05 11:41:59 Test Item Value Reference Range Interpretation Comments NA (test code = 136 mmol/L 135-145 7273544859) K (test code = 3.8 mmol/L 3.5-5.0 4862496941) CL (test code = 107 mmol/L 98-108 7234740354) CO2 TOTAL (test code = 19 mmol/L 23-31 L 9548605748) AGAP (test code = 2-16 6145756913) BUN (test code = 14 mg/dL 7-23 3193412012) GLUCOSE (test code = 152 mg/dL 70-110 H 4160879149) CREATININE (test code = 0.82 mg/dL 0.60-1.25 8226717450) TOTAL BILI (test code = 0.4 mg/dL 0.1-1.8 2707041885) CALCIUM (test code = 8.2 mg/dL 8.6-10.6 L 0162918586) T PROTEIN (test code = 5.9 g/dL 6.3-8.2 L 8285515278) ALBUMIN (test code = 2.9 g/dL 3.5-5.0 L 6011803871) ALK PHOS (test code = 97 U/L 34-122 2730579468) ALTv (test code = 17 U/L 5-50 1742-6) AST(SGOT) (test code = 25 U/L 13-40 8564459348) eGFR (test code = mL/min/1.73m2 4295693602) BRYSON (test code = BRYSON) Association of Glomerular Filtration Rate (GFR) and Staging of Kidney Disease* + --+ --+ ------+| GFR (mL/min/1.73 m2) ?| With Kidney Damage ?| ?Without Kidney Damage+ --------+ --------+ +| ?>90 ?| ?Stage one ?| ? Normal ?+ ---+ ---+ -------+| ?60-89 ?| ?Stage two ?| ? Decreased GFR ? + --+ --+ ------+| ?30-59 ?| ?Stage three ?| ? Stage three ? + --+ --+ ------+| ?15-29 ?| ?Stage four ? | ? Stage four ?+ ---+ ---+ -------+| ?<15 (or dialysis) ? ?| ?Stage five ? | ? Stage five ?+ ---+ ---+ -------+ *Each stage assumes the associated GFR level has been in effect for at least three months. ?Stages 1 to 5, with or without kidney disease, indicate chronic kidney disease. Notes: Determination of stages one and two (with eGFR >59mL/min/1.73 m2) requires estimation of kidney damage for at least three months as defined by structural or functional abnormalities of the kidney, manifested by either:Pathological abnormalities or Markers of kidney damage (including abnormalities in the composition of the blood or urine or abnormalities in imaging tests). Lab Interpretation Abnormal (test code = 86535-3) [facility] METABOLIC PANEL ([id number])2021-07-05 11:41:59 Test Item Value Reference Range Interpretation Comments NA (test code = 136 mmol/L 135-145 2004778332) K (test code = 3.8 mmol/L 3.5-5.0 1102943659) CL (test code = 107 mmol/L 98-108 6218897116) CO2 TOTAL (test code = 19 mmol/L 23-31 L 6155484246) AGAP (test code = 2-16 2730929944) BUN (test code = 14 mg/dL 7-23 2166732554) GLUCOSE (test code = 152 mg/dL 70-110 H 0288585837) CREATININE (test code = 0.82 mg/dL 0.60-1.25 0696125531) TOTAL BILI (test code = 0.4 mg/dL 0.1-1.5 4501921333) CALCIUM (test code = 8.2 mg/dL 8.6-10.6 L 4989639757) T PROTEIN (test code = 5.9 g/dL 6.3-8.2 L 8854017709) ALBUMIN (test code = 2.9 g/dL 3.5-5.0 L 6921286396) ALK PHOS (test code = 97 U/L 34-122 1489044553) ALTv (test code = 17 U/L 5-50 1742-6) AST(SGOT) (test code = 25 U/L 13-40 0360335088) eGFR (test code = mL/min/1.73m2 5734434588) BRYSON (test code = BRYSON) Association of Glomerular Filtration Rate (GFR) and Staging of Kidney Disease* + --+ --+ ------+| GFR (mL/min/1.73 m2) ?| With Kidney Damage ?| ?Without Kidney Damage+ --------+ --------+ +| ?>90 ?| ?Stage one ?| ? Normal ?+ ---+ ---+ -------+| ?60-89 ?| ?Stage two ?| ? Decreased GFR ? + --+ --+ ------+| ?30-59 ?| ?Stage three ?| ? Stage three ? + --+ --+ ------+| ?15-29 ?| ?Stage four ? | ? Stage four ?+ ---+ ---+ -------+| ?<15 (or dialysis) ? ?| ?Stage five ? | ? Stage five ?+ ---+ ---+ -------+ *Each stage assumes the associated GFR level has been in effect for at least three months. ?Stages 1 to 5, with or without kidney disease, indicate chronic kidney disease. Notes: Determination of stages one and two (with eGFR >59mL/min/1.73 m2) requires estimation of kidney damage for at least three months as defined by structural or functional abnormalities of the kidney, manifested by either:Pathological abnormalities or Markers of kidney damage (including abnormalities in the composition of the blood or urine or abnormalities in imaging tests). Lab Interpretation Abnormal (test code = 15334-1) [facility]. METABOLIC PANEL ([id number])2021-07-05 11:41:59 Test Item Value Reference Range Interpretation Comments NA (test code = 136 mmol/L 135-145 6937373081) K (test code = 3.8 mmol/L 3.5-5.0 0275714344) CL (test code = 107 mmol/L 98-108 6551929004) CO2 TOTAL (test code = 19 mmol/L 23-31 L 4227752254) AGAP (test code = 2-16 1466847769) BUN (test code = 14 mg/dL 7-23 2245457552) GLUCOSE (test code = 152 mg/dL 70-110 H 0168729635) CREATININE (test code = 0.82 mg/dL 0.60-1.25 7567990843) TOTAL BILI (test code = 0.4 mg/dL 0.1-1.0 7545460214) CALCIUM (test code = 8.2 mg/dL 8.6-10.6 L 8794808004) T PROTEIN (test code = 5.9 g/dL 6.3-8.2 L 4930552218) ALBUMIN (test code = 2.9 g/dL 3.5-5.0 L 9772402185) ALK PHOS (test code = 97 U/L 34-122 8720602291) ALTv (test code = 17 U/L 5-50 1742-6) AST(SGOT) (test code = 25 U/L 13-40 0441818699) eGFR (test code = mL/min/1.73m2 5938716487) BRYSON (test code = BRYSON) Association of Glomerular Filtration Rate (GFR) and Staging of Kidney Disease* + --+ --+ ------+| GFR (mL/min/1.73 m2) ?| With Kidney Damage ?| ?Without Kidney Damage+ --------+ --------+ +| ?>90 ?| ?Stage one ?| ? Normal ?+ ---+ ---+ -------+| ?60-89 ?| ?Stage two ?| ? Decreased GFR ? + --+ --+ ------+| ?30-59 ?| ?Stage three ?| ? Stage three ? + --+ --+ ------+| ?15-29 ?| ?Stage four ? | ? Stage four ?+ ---+ ---+ -------+| ?<15 (or dialysis) ? ?| ?Stage five ? | ? Stage five ?+ ---+ ---+ -------+ *Each stage assumes the associated GFR level has been in effect for at least three months. ?Stages 1 to 5, with or without kidney disease, indicate chronic kidney disease. Notes: Determination of stages one and two (with eGFR >59mL/min/1.73 m2) requires estimation of kidney damage for at least three months as defined by structural or functional abnormalities of the kidney, manifested by either:Pathological abnormalities or Markers of kidney damage (including abnormalities in the composition of the blood or urine or abnormalities in imaging tests). Lab Interpretation Abnormal (test code = 53627-6) [facility] WITH [id number] 11:13:33 Test Item Value Reference Range Interpretation Comments WBC (test code = See_Comment H [Automated 8045-2) message] The sy stem which generated this result transmitted reference range : 4.20 - 10.70 10*3/?L. The reference range was not used to interpret this result as normal/abnormal . RBC (test code = See_Comment L [Automated 135-8) message] The sy stem which generated this result transmitted reference range : 4.26 - 5.52 10*6/?L. The reference range was not used to interpret this result as normal/abnormal . HGB (test code = 10.1 g/dL 12.2-16.4 L 718-7) HCT (test code = 29.5 % 38.4-49.3 L 4544-3) MCV (test code = 93.7 fL 81.7-95.6 787-2) MCH (test code = 32.1 pg 26.1-32.7 785-6) MCHC (test code = 34.2 g/dL 31.2-35.0 786-4) RDW-SD (test code = 42.6 fL 38.5-51.6 85841-4) RDW-CV (test code = 12.3 % 12.1-15.4 788-0) PLT (test code = See_Comment [Automated 777-3) message] The sy stem which generated this result transmitted reference range : 150 - 328 10*3/ ?L. The reference r shanda was not used to interpret this result as normal/abnormal . MPV (test code = 12.5 fL 9.8-13.0 92193-0) NRBC/100 WBC (test See_Comment [Automat ed code = 3856672119) message] The system which generated this result transmitted reference range : 0.0 - 10.0 /100 WBCs. The refer ence range was not u sed to interpret th is result as normal/abnormal . NRBC x10^3 (test code <0.01 See_Comment [Auto mated = 0990972271) message] The s ystem which generated this result transmitted reference range : 10*3/?L. The reference range was not used to interpret this result as normal/abnormal . GRAN MAT (NEUT) % 72.3 % (test code = 770-8) IMM GRAN % (test code 0.50 % = 7473365644) LYMPH % (test code = 14.0 % 736-9) MONO % (test code = 11.4 % 5905-5) EOS % (test code = 1.4 % 713-8) BASO % (test code = 0.4 % 706-2) GRAN MAT x10^3(ANC) 7.97 10*3/uL 1.99-6.95 H (test code = 3311354888) IMM GRAN x10^3 (test 0.05 10*3/uL 0.00-0.06 code = 0359878497) LYMPH x10^3 (test code 1.54 10*3/uL 1.09-3.23 = 731-0) MONO x10^3 (test code 1.26 10*3/uL 0.36-1.02 H = 742-7) EOS x10^3 (test code = 0.15 10*3/uL 0.06-0.53 711-2) BASO x10^3 (test code 0.04 10*3/uL 0.01-0.09 = 704-7) Lab Interpretation Abnormal (test code = 64871-4) [facility] WITH [id number] 11:13:33 Test Item Value Reference Range Interpretation Comments WBC (test code = See_Comment H [Automated 6690-2) message] The sy stem which generated this result transmitted reference range : 4.20 - 10.70 10*3/?L. The reference range was not used to interpret this result as normal/abnormal . RBC (test code = See_Comment L [Automated 789-8) message] The sy stem which generated this result transmitted reference range : 4.26 - 5.52 10*6/?L. The reference range was not used to interpret this result as normal/abnormal . HGB (test code = 10.1 g/dL 12.2-16.4 L 718-7) HCT (test code = 29.5 % 38.4-49.3 L 4544-3) MCV (test code = 93.7 fL 81.7-95.6 787-2) MCH (test code = 32.1 pg 26.1-32.7 785-6) MCHC (test code = 34.2 g/dL 31.2-35.0 786-4) RDW-SD (test code = 42.6 fL 38.5-51.6 53886-4) RDW-CV (test code = 12.3 % 12.1-15.4 788-0) PLT (test code = See_Comment [Automated 777-3) message] The sy stem which generated this result transmitted reference range : 150 - 328 10*3/ ?L. The reference r shanda was not used to interpret this result as normal/abnormal . MPV (test code = 12.5 fL 9.8-13.0 59206-7) NRBC/100 WBC (test See_Comment [Automat ed code = 1465474150) message] The system which generated this result transmitted reference range : 0.0 - 10.0 /100 WBCs. The refer ence range was not u sed to interpret th is result as normal/abnormal . NRBC x10^3 (test code <0.01 See_Comment [Auto mated = 9841754386) message] The s ystem which generated this result transmitted reference range : 10*3/?L. The reference range was not used to interpret this result as normal/abnormal . GRAN MAT (NEUT) % 72.3 % (test code = 770-8) IMM GRAN % (test code 0.50 % = 4425207488) LYMPH % (test code = 14.0 % 736-9) MONO % (test code = 11.4 % 5905-5) EOS % (test code = 1.4 % 713-8) BASO % (test code = 0.4 % 706-2) GRAN MAT x10^3(ANC) 7.97 10*3/uL 1.99-6.95 H (test code = 7967375887) IMM GRAN x10^3 (test 0.05 10*3/uL 0.00-0.06 code = 5210950491) LYMPH x10^3 (test code 1.54 10*3/uL 1.09-3.23 = 731-0) MONO x10^3 (test code 1.26 10*3/uL 0.36-1.02 H = 742-7) EOS x10^3 (test code = 0.15 10*3/uL 0.06-0.53 711-2) BASO x10^3 (test code 0.04 10*3/uL 0.01-0.09 = 704-7) Lab Interpretation Abnormal (test code = 31520-0) [facility] WITH [id number] 11:13:33 Test Item Value Reference Range Interpretation Comments WBC (test code = See_Comment H [Automated 5130-2) message] The sy stem which generated this result transmitted reference range : 4.20 - 10.70 10*3/?L. The reference range was not used to interpret this result as normal/abnormal . RBC (test code = See_Comment L [Automated 789-8) message] The sy stem which generated this result transmitted reference range : 4.26 - 5.52 10*6/?L. The reference range was not used to interpret this result as normal/abnormal . HGB (test code = 10.1 g/dL 12.2-16.4 L 718-7) HCT (test code = 29.5 % 38.4-49.3 L 4544-3) MCV (test code = 93.7 fL 81.7-95.6 787-2) MCH (test code = 32.1 pg 26.1-32.7 785-6) MCHC (test code = 34.2 g/dL 31.2-35.0 786-4) RDW-SD (test code = 42.6 fL 38.5-51.6 14336-6) RDW-CV (test code = 12.3 % 12.1-15.4 788-0) PLT (test code = See_Comment [Automated 777-3) message] The sy stem which generated this result transmitted reference range : 150 - 328 10*3/ ?L. The reference r shanda was not used to interpret this result as normal/abnormal . MPV (test code = 12.5 fL 9.8-13.0 03116-3) NRBC/100 WBC (test See_Comment [Automat ed code = 6011769461) message] The system which generated this result transmitted reference range : 0.0 - 10.0 /100 WBCs. The refer ence range was not u sed to interpret th is result as normal/abnormal . NRBC x10^3 (test code <0.01 See_Comment [Auto mated = 2461258345) message] The s ystem which generated this result transmitted reference range : 10*3/?L. The reference range was not used to interpret this result as normal/abnormal . GRAN MAT (NEUT) % 72.3 % (test code = 770-8) IMM GRAN % (test code 0.50 % = 8400801044) LYMPH % (test code = 14.0 % 736-9) MONO % (test code = 11.4 % 5905-5) EOS % (test code = 1.4 % 713-8) BASO % (test code = 0.4 % 706-2) GRAN MAT x10^3(ANC) 7.97 10*3/uL 1.99-6.95 H (test code = 8396966538) IMM GRAN x10^3 (test 0.05 10*3/uL 0.00-0.06 code = 1873582050) LYMPH x10^3 (test code 1.54 10*3/uL 1.09-3.23 = 731-0) MONO x10^3 (test code 1.26 10*3/uL 0.36-1.02 H = 742-7) EOS x10^3 (test code = 0.15 10*3/uL 0.06-0.53 711-2) BASO x10^3 (test code 0.04 10*3/uL 0.01-0.09 = 704-7) Lab Interpretation Abnormal (test code = 14536-9) [facility] GLUCOSE (AUTOMATED)2021-07-04 18:13:05 Test Item Value Reference Range Interpretation Comments POCT GLU (test code = 6162441269) 237 mg/dL 70-110 H Lab Interpretation (test code = Abnormal 08729-3) [facility] GLUCOSE (AUTOMATED)2021-07-04 18:13:05 Test Item Value Reference Range Interpretation Comments POCT GLU (test code = 4455478907) 237 mg/dL 70-110 H Lab Interpretation (test code = Abnormal 97794-6) [facility] GLUCOSE (AUTOMATED)2021-07-04 18:13:05 Test Item Value Reference Range Interpretation Comments POCT GLU (test code = 7205131236) 237 mg/dL 70-110 H Lab Interpretation (test code = Abnormal 84693-9) [facility] Draw no more than 60 minutes before the 1200 dose.2021-07-04 17:26:07 Test Item Value Reference Range Interpretation Comments VANCO TROUGH (test code 9.1 ug/mL 10.0-20.0 L = 0020216012) BRYSON (test code = BRYSON) Toxic Range: ?>20 ug/mL 15-20 ug/mL is recommended for severe infection or when Vancomycin ELISE is greater than or equal to 2. Lab Interpretation (test Abnormal code = 31369-5) [facility] Draw no more than 60 minutes before the 1200 dose.2021-07-04 17:26:07 Test Item Value Reference Range Interpretation Comments VANCO TROUGH (test code 9.1 ug/mL 10.0-20.0 L = 1082747174) BRYSON (test code = BRYSON) Toxic Range: ?>20 ug/mL 15-20 ug/mL is recommended for severe infection or when Vancomycin ELISE is greater than or equal to 2. Lab Interpretation (test Abnormal code = 47243-6) [facility] Draw no more than 60 minutes before the 1200 dose.2021-07-04 17:26:07 Test Item Value Reference Range Interpretation Comments VANCO TROUGH (test code 9.1 ug/mL 10.0-20.0 L = 8516116388) BRYSON (test code = BRYSON) Toxic Range: ?>20 ug/mL 15-20 ug/mL is recommended for severe infection or when Vancomycin ELISE is greater than or equal to 2. Lab Interpretation (test Abnormal code = 77207-5) [facility] [id number] 15:31:30 Test Item Value Reference Range Interpretation Comments CRP (test code = 5535511784) 12.0 mg/dL <0.8 H Lab Interpretation (test code = Abnormal 36558-0) [facility]-REACTIVE [id number] 15:31:30 Test Item Value Reference Range Interpretation Comments CRP (test code = 8787319927) 12.0 mg/dL <0.8 H Lab Interpretation (test code = Abnormal 63075-8) [facility]-REACTIVE [id number] 15:31:30 Test Item Value Reference Range Interpretation Comments CRP (test code = 2060477453) 12.0 mg/dL <0.8 H Lab Interpretation (test code = Abnormal 11605-9) [facility] GLUCOSE (AUTOMATED)2021-07-04 14:30:27 Test Item Value Reference Range Interpretation Comments POCT GLU (test code = 1394762512) 190 mg/dL 70-110 H Lab Interpretation (test code = Abnormal 90042-4) [facility] GLUCOSE (AUTOMATED)2021-07-04 14:30:27 Test Item Value Reference Range Interpretation Comments POCT GLU (test code = 2510847593) 190 mg/dL 70-110 H Lab Interpretation (test code = Abnormal 61057-4) [facility] 14:30:27 Test Item Value Reference Range Interpretation Comments POCT GLU (test code = 5276646410) 190 mg/dL 70-110 H Lab Interpretation (test code = Abnormal 14641-8) [facility], [id number] 14:26:51 Test Item Value Reference Range Interpretation Comments VIT D 25OH (test code = 13 ng/mL 25-80 L 39701-8) BRYSON (test code = BRYSON) Deficiency: <20 ng/mLInsufficiency: 20-24 ng/mLOptimal: 25-80 ng/mL Lab Interpretation (test Abnormal code = 52059-2) [facility], [id number] 14:26:51 Test Item Value Reference Range Interpretation Comments VIT D 25OH (test code = 13 ng/mL 25-80 L 97062-5) BRYSON (test code = BRYSON) Deficiency: <20 ng/mLInsufficiency: 20-24 ng/mLOptimal: 25-80 ng/mL Lab Interpretation (test Abnormal code = 90010-1) [facility], [id number] 14:26:51 Test Item Value Reference Range Interpretation Comments VIT D 25OH (test code = 13 ng/mL 25-80 L 51971-6) BRYSON (test code = BRYSON) Deficiency: <20 ng/mLInsufficiency: 20-24 ng/mLOptimal: 25-80 ng/mL Lab Interpretation (test Abnormal code = 94115-4) [facility] WITH [id number] 13:47:46 Test Item Value Reference Range Interpretation Comments WBC (test code = See_Comment H [Automated 6690-2) message] The sy stem which generated this result transmitted reference range : 4.20 - 10.70 10*3/?L. The reference range was not used to interpret this result as normal/abnormal . RBC (test code = See_Comment L [Automated 789-8) message] The sy stem which generated this result transmitted reference range : 4.26 - 5.52 10*6/?L. The reference range was not used to interpret this result as normal/abnormal . HGB (test code = 10.3 g/dL 12.2-16.4 L 718-7) HCT (test code = 30.3 % 38.4-49.3 L 4544-3) MCV (test code = 92.9 fL 81.7-95.6 787-2) MCH (test code = 31.6 pg 26.1-32.7 785-6) MCHC (test code = 34.0 g/dL 31.2-35.0 786-4) RDW-SD (test code = 42.5 fL 38.5-51.6 89048-6) RDW-CV (test code = 12.4 % 12.1-15.4 788-0) PLT (test code = See_Comment [Automated 777-3) message] The sy stem which generated this result transmitted reference range : 150 - 328 10*3/ ?L. The reference r shanda was not used to interpret this result as normal/abnormal . MPV (test code = 13.5 fL 9.8-13.0 H 46783-0) IPF % (test code = 9.6 % 1.2-10.7 Platelet count 7374562802) measured by fluorescence method. NRBC/100 WBC (test See_Comment [Automat ed code = 6828495815) message] The system which generated this result transmitted reference range : 0.0 - 10.0 /100 WBCs. The refer ence range was not u sed to interpret th is result as normal/abnormal . NRBC x10^3 (test code <0.01 See_Comment [Auto mated = 8108741247) message] The s ystem which generated this result transmitted reference range : 10*3/?L. The reference range was not used to interpret this result as normal/abnormal . GRAN MAT (NEUT) % 71.3 % (test code = 770-8) IMM GRAN % (test code 0.60 % = 7618110999) LYMPH % (test code = 15.8 % 736-9) MONO % (test code = 11.2 % 5905-5) EOS % (test code = 0.8 % 713-8) BASO % (test code = 0.3 % 706-2) GRAN MAT x10^3(ANC) 8.92 10*3/uL 1.99-6.95 H (test code = 3657942183) IMM GRAN x10^3 (test 0.07 10*3/uL 0.00-0.06 H code = 7045996663) LYMPH x10^3 (test code 1.97 10*3/uL 1.09-3.23 = 731-0) MONO x10^3 (test code 1.40 10*3/uL 0.36-1.02 H = 742-7) EOS x10^3 (test code = 0.10 10*3/uL 0.06-0.53 711-2) BASO x10^3 (test code 0.04 10*3/uL 0.01-0.09 = 704-7) Lab Interpretation Abnormal (test code = 28855-8) [facility] WITH [id number] 13:47:46 Test Item Value Reference Range Interpretation Comments WBC (test code = See_Comment H [Automated 6690-2) message] The sy stem which generated this result transmitted reference range : 4.20 - 10.70 10*3/?L. The reference range was not used to interpret this result as normal/abnormal . RBC (test code = See_Comment L [Automated 789-8) message] The sy stem which generated this result transmitted reference range : 4.26 - 5.52 10*6/?L. The reference range was not used to interpret this result as normal/abnormal . HGB (test code = 10.3 g/dL 12.2-16.4 L 718-7) HCT (test code = 30.3 % 38.4-49.3 L 4544-3) MCV (test code = 92.9 fL 81.7-95.6 787-2) MCH (test code = 31.6 pg 26.1-32.7 785-6) MCHC (test code = 34.0 g/dL 31.2-35.0 786-4) RDW-SD (test code = 42.5 fL 38.5-51.6 97374-2) RDW-CV (test code = 12.4 % 12.1-15.4 788-0) PLT (test code = See_Comment [Automated 777-3) message] The sy stem which generated this result transmitted reference range : 150 - 328 10*3/ ?L. The reference r shanda was not used to interpret this result as normal/abnormal . MPV (test code = 13.5 fL 9.8-13.0 H 02589-3) IPF % (test code = 9.6 % 1.2-10.7 Platelet count 2940185401) measured by fluorescence method. NRBC/100 WBC (test See_Comment [Automat ed code = 5504893916) message] The system which generated this result transmitted reference range : 0.0 - 10.0 /100 WBCs. The refer ence range was not u sed to interpret th is result as normal/abnormal . NRBC x10^3 (test code <0.01 See_Comment [Auto mated = 4855323135) message] The s ystem which generated this result transmitted reference range : 10*3/?L. The reference range was not used to interpret this result as normal/abnormal . GRAN MAT (NEUT) % 71.3 % (test code = 770-8) IMM GRAN % (test code 0.60 % = 6323446793) LYMPH % (test code = 15.8 % 736-9) MONO % (test code = 11.2 % 5905-5) EOS % (test code = 0.8 % 713-8) BASO % (test code = 0.3 % 706-2) GRAN MAT x10^3(ANC) 8.92 10*3/uL 1.99-6.95 H (test code = 4652796750) IMM GRAN x10^3 (test 0.07 10*3/uL 0.00-0.06 H code = 2849692031) LYMPH x10^3 (test code 1.97 10*3/uL 1.09-3.23 = 731-0) MONO x10^3 (test code 1.40 10*3/uL 0.36-1.02 H = 742-7) EOS x10^3 (test code = 0.10 10*3/uL 0.06-0.53 711-2) BASO x10^3 (test code 0.04 10*3/uL 0.01-0.09 = 704-7) Lab Interpretation Abnormal (test code = 66557-6) [facility] WITH [id number] 13:47:46 Test Item Value Reference Range Interpretation Comments WBC (test code = See_Comment H [Automated 6690-2) message] The sy stem which generated this result transmitted reference range : 4.20 - 10.70 10*3/?L. The reference range was not used to interpret this result as normal/abnormal . RBC (test code = See_Comment L [Automated 789-8) message] The sy stem which generated this result transmitted reference range : 4.26 - 5.52 10*6/?L. The reference range was not used to interpret this result as normal/abnormal . HGB (test code = 10.3 g/dL 12.2-16.4 L 718-7) HCT (test code = 30.3 % 38.4-49.3 L 4544-3) MCV (test code = 92.9 fL 81.7-95.6 787-2) MCH (test code = 31.6 pg 26.1-32.7 785-6) MCHC (test code = 34.0 g/dL 31.2-35.0 786-4) RDW-SD (test code = 42.5 fL 38.5-51.6 20856-1) RDW-CV (test code = 12.4 % 12.1-15.4 788-0) PLT (test code = See_Comment [Automated 777-3) message] The sy stem which generated this result transmitted reference range : 150 - 328 10*3/ ?L. The reference r shanda was not used to interpret this result as normal/abnormal . MPV (test code = 13.5 fL 9.8-13.0 H 94523-9) IPF % (test code = 9.6 % 1.2-10.7 Platelet count 2968041839) measured by fluorescence method. NRBC/100 WBC (test See_Comment [Automat ed code = 7810975687) message] The system which generated this result transmitted reference range : 0.0 - 10.0 /100 WBCs. The refer ence range was not u sed to interpret th is result as normal/abnormal . NRBC x10^3 (test code <0.01 See_Comment [Auto mated = 6541216820) message] The s [employer] which generated this result transmitted reference range : 10*3/?L. The reference range was not used to interpret this result as normal/abnormal . GRAN MAT (NEUT) % 71.3 % (test code = 770-8) IMM GRAN % (test code 0.60 % = 0101449210) LYMPH % (test code = 15.8 % 736-9) MONO % (test code = 11.2 % 5905-5) EOS % (test code = 0.8 % 713-8) BASO % (test code = 0.3 % 706-2) GRAN MAT x10^3(ANC) 8.92 10*3/uL 1.99-6.95 H (test code = 3901297558) IMM GRAN x10^3 (test 0.07 10*3/uL 0.00-0.06 H code = 2369578623) LYMPH x10^3 (test code 1.97 10*3/uL 1.09-3.23 = 731-0) MONO x10^3 (test code 1.40 10*3/uL 0.36-1.02 H = 742-7) EOS x10^3 (test code = 0.10 10*3/uL 0.06-0.53 711-2) BASO x10^3 (test code 0.04 10*3/uL 0.01-0.09 = 704-7) Lab Interpretation Abnormal (test code = 93439-5) [id number] 13:33:20 Test Item Value Reference Range Interpretation Comments NT-proBNP (test code 291 pg/mL See_Comment H [Autom ated = 9380321285) message] The system which generated this result transmitted reference range : <=125. The reference range was not used to interpret this result as normal/abnormal . BRYSON (test code = BRYSON) Biotin has been reported to cause a negative bias, interpret results relative to patient's use of biotin. Lab Interpretation Abnormal (test code = 87985-0) [facility]-TERMINAL [id number] 13:33:20 Test Item Value Reference Range Interpretation Comments NT-proBNP (test code 291 pg/mL See_Comment H [Autom ated = 7086376526) message] The system which generated this result transmitted reference range : <=125. The reference range was not used to interpret this result as normal/abnormal . BRYSON (test code = BRYSON) Biotin has been reported to cause a negative bias, interpret results relative to patient's use of biotin. Lab Interpretation Abnormal (test code = 43577-7) [id number] 13:33:20 Test Item Value Reference Range Interpretation Comments NT-proBNP (test code 291 pg/mL See_Comment H [Autom ated = 6980884340) message] The system which generated this result transmitted reference range : <=125. The reference range was not used to interpret this result as normal/abnormal . BRYSON (test code = BRYSON) Biotin has been reported to cause a negative bias, interpret results relative to patient's use of biotin. Lab Interpretation Abnormal (test code = 77915-4) [facility] 13:18:00 Test Item Value Reference Range Interpretation Comments MAGNESIUM (test code = 3657512209) 2.1 mg/dL 1.7-2.4 Lab Interpretation (test code = Normal 01235-7) [facility] 13:18:00 Test Item Value Reference Range Interpretation Comments MAGNESIUM (test code = 6950976016) 2.1 mg/dL 1.7-2.4 Lab Interpretation (test code = Normal 57905-0) [facility] 13:18:00 Test Item Value Reference Range Interpretation Comments MAGNESIUM (test code = 5633378691) 2.1 mg/dL 1.7-2.4 Lab Interpretation (test code = Normal 36487-8) [facility] ([id number])2021-07-04 13:17:39 Test Item Value Reference Range Interpretation Comments NA (test code = 135 mmol/L 135-145 1262015825) K (test code = 3.8 mmol/L 3.5-5.0 0213932046) CL (test code = 106 mmol/L 98-108 5185518597) CO2 TOTAL (test code = 22 mmol/L 23-31 L 7125332982) AGAP (test code = 2-16 6917641772) BUN (test code = 14 mg/dL 7-23 4626660814) GLUCOSE (test code = 151 mg/dL 70-110 H 8988069070) CREATININE (test code = 0.78 mg/dL 0.60-1.25 4793793037) TOTAL BILI (test code = 0.5 mg/dL 0.1-1.2 1525066273) CALCIUM (test code = 8.1 mg/dL 8.6-10.6 L 0378214411) T PROTEIN (test code = 5.6 g/dL 6.3-8.2 L 0356341504) ALBUMIN (test code = 2.7 g/dL 3.5-5.0 L 8893911739) ALK PHOS (test code = 75 U/L 34-122 5170722216) ALTv (test code = 13 U/L 5-50 1742-6) AST(SGOT) (test code = 20 U/L 13-40 3839031349) eGFR (test code = mL/min/1.73m2 0978864161) BRYSON (test code = BRYSON) Association of Glomerular Filtration Rate (GFR) and Staging of Kidney Disease* + --+ --+ ------+| GFR (mL/min/1.73 m2) ?| With Kidney Damage ?| ?Without Kidney Damage+ --------+ --------+ +| ?>90 ?| ?Stage one ?| ? Normal ?+ ---+ ---+ -------+| ?60-89 ?| ?Stage two ?| ? Decreased GFR ? + --+ --+ ------+| ?30-59 ?| ?Stage three ?| ? Stage three ? + --+ --+ ------+| ?15-29 ?| ?Stage four ? | ? Stage four ?+ ---+ ---+ -------+| ?<15 (or dialysis) ? ?| ?Stage five ? | ? Stage five ?+ ---+ ---+ -------+ *Each stage assumes the associated GFR level has been in effect for at least three months. ?Stages 1 to 5, with or without kidney disease, indicate chronic kidney disease. Notes: Determination of stages one and two (with eGFR >59mL/min/1.73 m2) requires estimation of kidney damage for at least three months as defined by structural or functional abnormalities of the kidney, manifested by either:Pathological abnormalities or Markers of kidney damage (including abnormalities in the composition of the blood or urine or abnormalities in imaging tests). Lab Interpretation Abnormal (test code = 55948-8) [facility]. METABOLIC PANEL ([id number])2021-07-04 13:17:39 Test Item Value Reference Range Interpretation Comments NA (test code = 135 mmol/L 135-145 3839899782) K (test code = 3.8 mmol/L 3.5-5.0 7693782944) CL (test code = 106 mmol/L 98-108 7798089108) CO2 TOTAL (test code = 22 mmol/L 23-31 L 7363115958) AGAP (test code = 2-16 1697292854) BUN (test code = 14 mg/dL 7-23 3412140434) GLUCOSE (test code = 151 mg/dL 70-110 H 6085781539) CREATININE (test code = 0.78 mg/dL 0.60-1.25 1867634932) TOTAL BILI (test code = 0.5 mg/dL 0.1-1.7 9807940236) CALCIUM (test code = 8.1 mg/dL 8.6-10.6 L 7922378740) T PROTEIN (test code = 5.6 g/dL 6.3-8.2 L 0898096141) ALBUMIN (test code = 2.7 g/dL 3.5-5.0 L 9710549192) ALK PHOS (test code = 75 U/L 34-122 8310491161) ALTv (test code = 13 U/L 5-50 1742-6) AST(SGOT) (test code = 20 U/L 13-40 6386696138) eGFR (test code = mL/min/1.73m2 5546156156) BRYSON (test code = BRYSON) Association of Glomerular Filtration Rate (GFR) and Staging of Kidney Disease* + --+ --+ ------+| GFR (mL/min/1.73 m2) ?| With Kidney Damage ?| ?Without Kidney Damage+ --------+ --------+ +| ?>90 ?| ?Stage one ?| ? Normal ?+ ---+ ---+ -------+| ?60-89 ?| ?Stage two ?| ? Decreased GFR ? + --+ --+ ------+| ?30-59 ?| ?Stage three ?| ? Stage three ? + --+ --+ ------+| ?15-29 ?| ?Stage four ? | ? Stage four ?+ ---+ ---+ -------+| ?<15 (or dialysis) ? ?| ?Stage five ? | ? Stage five ?+ ---+ ---+ -------+ *Each stage assumes the associated GFR level has been in effect for at least three months. ?Stages 1 to 5, with or without kidney disease, indicate chronic kidney disease. Notes: Determination of stages one and two (with eGFR >59mL/min/1.73 m2) requires estimation of kidney damage for at least three months as defined by structural or functional abnormalities of the kidney, manifested by either:Pathological abnormalities or Markers of kidney damage (including abnormalities in the composition of the blood or urine or abnormalities in imaging tests). Lab Interpretation Abnormal (test code = 43037-1) [facility]. METABOLIC PANEL ([id number])2021-07-04 13:17:39 Test Item Value Reference Range Interpretation Comments NA (test code = 135 mmol/L 135-145 1171336969) K (test code = 3.8 mmol/L 3.5-5.0 1811083337) CL (test code = 106 mmol/L 98-108 2400150572) CO2 TOTAL (test code = 22 mmol/L 23-31 L 8399246644) AGAP (test code = 2-16 3676784550) BUN (test code = 14 mg/dL 7-23 9932563793) GLUCOSE (test code = 151 mg/dL 70-110 H 7051813938) CREATININE (test code = 0.78 mg/dL 0.60-1.25 8308143138) TOTAL BILI (test code = 0.5 mg/dL 0.1-1.3 9586386338) CALCIUM (test code = 8.1 mg/dL 8.6-10.6 L 5790287087) T PROTEIN (test code = 5.6 g/dL 6.3-8.2 L 2964592907) ALBUMIN (test code = 2.7 g/dL 3.5-5.0 L 6934384003) ALK PHOS (test code = 75 U/L 34-122 9871307051) ALTv (test code = 13 U/L 5-50 1742-6) AST(SGOT) (test code = 20 U/L 13-40 5339257747) eGFR (test code = mL/min/1.73m2 7958806088) BRYSON (test code = BRYSON) Association of Glomerular Filtration Rate (GFR) and Staging of Kidney Disease* + --+ --+ ------+| GFR (mL/min/1.73 m2) ?| With Kidney Damage ?| ?Without Kidney Damage+ --------+ --------+ +| ?>90 ?| ?Stage one ?| ? Normal ?+ ---+ ---+ -------+| ?60-89 ?| ?Stage two ?| ? Decreased GFR ? + --+ --+ ------+| ?30-59 ?| ?Stage three ?| ? Stage three ? + --+ --+ ------+| ?15-29 ?| ?Stage four ? | ? Stage four ?+ ---+ ---+ -------+| ?<15 (or dialysis) ? ?| ?Stage five ? | ? Stage five ?+ ---+ ---+ -------+ *Each stage assumes the associated GFR level has been in effect for at least three months. ?Stages 1 to 5, with or without kidney disease, indicate chronic kidney disease. Notes: Determination of stages one and two (with eGFR >59mL/min/1.73 m2) requires estimation of kidney damage for at least three months as defined by structural or functional abnormalities of the kidney, manifested by either:Pathological abnormalities or Markers of kidney damage (including abnormalities in the composition of the blood or urine or abnormalities in imaging tests). Lab Interpretation Abnormal (test code = 87648-4) [facility]:19 Test Item Value Reference Range Interpretation Comments PHOSPHORUS (test code = 7002590941) 3.4 mg/dL 2.5-5.0 Lab Interpretation (test code = Normal 86739-1) [facility] 13:17:19 Test Item Value Reference Range Interpretation Comments PHOSPHORUS (test code = 6778436415) 3.4 mg/dL 2.5-5.0 Lab Interpretation (test code = Normal 08269-5) [facility] 13:17:19 Test Item Value Reference Range Interpretation Comments PHOSPHORUS (test code = 0604463378) 3.4 mg/dL 2.5-5.0 Lab Interpretation (test code = Normal 64033-1) [facility] GLUCOSE (AUTOMATED)2021-07-04 12:05:44 Test Item Value Reference Range Interpretation Comments POCT GLU (test code = [id number]) 211 mg/dL 70-110 H Lab Interpretation (test code = Abnormal 74838-8) [facility] GLUCOSE (AUTOMATED)2021-07-04 12:05:44 Test Item Value Reference Range Interpretation Comments POCT GLU (test code = [id number]) 211 mg/dL 70-110 H Lab Interpretation (test code = Abnormal 71576-6) [facility] GLUCOSE (AUTOMATED)2021-07-04 12:05:44 Test Item Value Reference Range Interpretation Comments POCT GLU (test code = 7398726441) 211 mg/dL 70-110 H Lab Interpretation (test code = Abnormal 12864-1) [facility] GLUCOSE (AUTOMATED)2021-07-04 12:05:22 Test Item Value Reference Range Interpretation Comments POCT GLU (test code = 6557673684) 124 mg/dL 70-110 H Lab Interpretation (test code = Abnormal 57462-5) [facility] GLUCOSE (AUTOMATED)2021-07-04 12:05:22 Test Item Value Reference Range Interpretation Comments POCT GLU (test code = 2411092511) 124 mg/dL 70-110 H Lab Interpretation (test code = Abnormal 76700-2) [facility] GLUCOSE (AUTOMATED)2021-07-04 12:05:22 Test Item Value Reference Range Interpretation Comments POCT GLU (test code = 8044810302) 124 mg/dL 70-110 H Lab Interpretation (test code = Abnormal 44487-5) [facility] GLUCOSE (AUTOMATED)2021-07-04 12:04:47 Test Item Value Reference Range Interpretation Comments POCT GLU (test code = 9680989649) 194 mg/dL 70-110 H Lab Interpretation (test code = Abnormal 00862-2) [facility] GLUCOSE (AUTOMATED)2021-07-04 12:04:47 Test Item Value Reference Range Interpretation Comments POCT GLU (test code = 4050173893) 194 mg/dL 70-110 H Lab Interpretation (test code = Abnormal 18435-4) [facility] GLUCOSE (AUTOMATED)2021-07-04 12:04:47 Test Item Value Reference Range Interpretation Comments POCT GLU (test code = 3819125627) 194 mg/dL 70-110 H Lab Interpretation (test code = Abnormal 86104-4) [facility] GLUCOSE (AUTOMATED)2021-07-04 12:04:19 Test Item Value Reference Range Interpretation Comments POCT GLU (test code = 1808027854) 271 mg/dL 70-110 H Lab Interpretation (test code = Abnormal 10716-8) [facility] GLUCOSE (AUTOMATED)2021-07-04 12:04:19 Test Item Value Reference Range Interpretation Comments POCT GLU (test code = 2657272620) 271 mg/dL 70-110 H Lab Interpretation (test code = Abnormal 80057-1) [facility] GLUCOSE (AUTOMATED)2021-07-04 12:04:19 Test Item Value Reference Range Interpretation Comments POCT GLU (test code = 1604587670) 271 mg/dL 70-110 H Lab Interpretation (test code = Abnormal 22682-2) [facility] [id number] 20:51:33 Test Item Value Reference Range Interpretation Comments VIT B12 (test code = 768 pg/mL 240-930 [id number]) BRYSON (test code = BRYSON) Biotin has been reported to cause a positive bias, interpret results relative to patient's use of biotin. Lab Interpretation (test Normal code = 76316-0) [facility] [id number] 20:51:33 Test Item Value Reference Range Interpretation Comments VIT B12 (test code = 768 pg/mL 240-930 [id number]) BRYSON (test code = BRYSON) Biotin has been reported to cause a positive bias, interpret results relative to patient's use of biotin. Lab Interpretation (test Normal code = 86253-3) [facility] [id number] 20:51:33 Test Item Value Reference Range Interpretation Comments VIT B12 (test code = 768 pg/mL 240-930 [id number]) BRYSON (test code = BRYSON) Biotin has been reported to cause a positive bias, interpret results relative to patient's use of biotin. Lab Interpretation (test Normal code = 03433-1) [facility] 20:34:29 Test Item Value Reference Range Interpretation Comments Procalcitonin (test 0.09 ng/mL <0.07 H code = 2579836150) BRYSON (test code = BRYSON) INTERPRETATION OF PROCALCITONIN RESULTS IN ADULTS >= 18 YEARS OF AGE Initiation and discontinuation of antibiotics on patients with suspected or confirmed Lower Respiratory Tract Infection in Adults >= 18 years of age. + +-------- --------+ + -----+|Procalcitonin |Interpretation ?|Antibiotic ? ? |Considerations ? |ng/mL ? | ?|recommendation | ? + +-------- --------+ + -----+| <0.1 ? | Bacterial ? ? ?| Strongly ? ? ?| ? | ?| infection very | discouraged ? | Overruling: ? | ?| unlikely ? ? ? | ? | ? Clinically unstable ? ? ? + +-------- --------+ + ? High risk for adverse ? ? | <0.25 ?| Bacterial ? ? ?| Discouraged ? | ? outcome ? | ?| infection ? ? ?| ? | ? SEE IMPORTANT NOTE ?| ?| unlikely ? ? ? | ? | ? + +-------- --------+ + -----+| >=0.25 ? ? ? | Bacterial ? ? ?| Encouraged ? ?| ? | ?| infection ? ? ?| ? | ? | ?| likely ? | ? | Consider treatment failure ?+ +------- ---------+ -+ if levels does not decrease | >0.5 ? | Bacterial ? ? ?| Strongly ? ? ?| appropriately ? | ?| infection very | encouraged ? ?| ? | ?| likely ? | ? | ? + +-------- --------+ + -----+ Discontinuation of antibiotics in high-acuity patients with suspected or confirmed sepsis in Adults >= 18 years of age. + +-------- --------+ + -----+|Procalcitonin |Interpretation ?|Antibiotic ? ? |Considerations ? |ng/mL ? | ?|recommendation | ? + +-------- --------+ + -----+| <0.25 ?| Bacterial ? ? ?| Strongly ? ? ?| ? | ?| infection very | discouraged ? | Overruling: ? | ?| unlikely ? ? ? | ? | ? Clinically unstable ? ? ? + +-------- --------+ + ? High risk for adverse ? ? | <0.5 or drop | Bacterial ? ? ?| Discouraged ? | ? outcome ? | >80% from ? ?| infection ? ? ?| ? | ? SEE IMPORTANT NOTE ?| highest PCT ?| unlikely ? ? ? | ? | ? | level ?| ?| ? | ? + +-------- --------+ + -----+| >=0.5 ?| Bacterial ? ? ?| Encouraged ? ?| ? | ?| infection ? ? ?| ? | ? | ?| likely ? | ? | Consider treatment failure ?+ +------- ---------+ -+ if levels does not decrease | >1.0 ? | Bacterial ? ? ?| Strongly ? ? ?| appropriately ? | ?| infection very | encouraged ? ?| ? | ?| likely ? | ? | ? + +-------- --------+ + -----+ Percentage of drop of Procalcitonin calculation for Discontinuation of antibiotics in high-acuity patients with suspected or confirmed sepsis in Adults >= 18 years of age. ? Procalcitonin highest{}-Procalcitonin current{}Delta Procalcitonin = x100% ? Procalcitonin current {} IMPORTANT NOTE: Procalcitonin may be elevated without bacterial infection by physiologic stress related to trauma, aguilera, chronic dialysis, metastatic cancer, surgery in the past seven days, malaria, some fungal infections, and some forms of vasculitis. The interpretation algorithm may not apply to patients with immunosuppression (equivalent of >10 mg of prednisone daily), HIV with CD4 cell count < 350 cells/mm3, active malignancy on systemic chemotherapy, solid organ transplant or hematopoietic stem cell transplantation, or hospital acquired pneumonia. Additionally, some clinical trials of procalcitonin have excluded patients with shock requiring vasopressor use, acute respiratory failure requiring mechanical ventilation, or those with known lung abscess/empyema. For further information please refer to:[email or web address] Lab Interpretation Abnormal (test code = 59899-5) [facility] 20:34:29 Test Item Value Reference Range Interpretation Comments Procalcitonin (test 0.09 ng/mL <0.07 H code = 1740777358) BRYSON (test code = BRYSON) INTERPRETATION OF PROCALCITONIN RESULTS IN ADULTS >= 18 YEARS OF AGE Initiation and discontinuation of antibiotics on patients with suspected or confirmed Lower Respiratory Tract Infection in Adults >= 18 years of age. + +-------- --------+ + -----+|Procalcitonin |Interpretation ?|Antibiotic ? ? |Considerations ? |ng/mL ? | ?|recommendation | ? + +-------- --------+ + -----+| <0.1 ? | Bacterial ? ? ?| Strongly ? ? ?| ? | ?| infection very | discouraged ? | Overruling: ? | ?| unlikely ? ? ? | ? | ? Clinically unstable ? ? ? + +-------- --------+ + ? High risk for adverse ? ? | <0.25 ?| Bacterial ? ? ?| Discouraged ? | ? outcome ? | ?| infection ? ? ?| ? | ? SEE IMPORTANT NOTE ?| ?| unlikely ? ? ? | ? | ? + +-------- --------+ + -----+| >=0.25 ? ? ? | Bacterial ? ? ?| Encouraged ? ?| ? | ?| infection ? ? ?| ? | ? | ?| likely ? | ? | Consider treatment failure ?+ +------- ---------+ -+ if levels does not decrease | >0.5 ? | Bacterial ? ? ?| Strongly ? ? ?| appropriately ? | ?| infection very | encouraged ? ?| ? | ?| likely ? | ? | ? + +-------- --------+ + -----+ Discontinuation of antibiotics in high-acuity patients with suspected or confirmed sepsis in Adults >= 18 years of age. + +-------- --------+ + -----+|Procalcitonin |Interpretation ?|Antibiotic ? ? |Considerations ? |ng/mL ? | ?|recommendation | ? + +-------- --------+ + -----+| <0.25 ?| Bacterial ? ? ?| Strongly ? ? ?| ? | ?| infection very | discouraged ? | Overruling: ? | ?| unlikely ? ? ? | ? | ? Clinically unstable ? ? ? + +-------- --------+ + ? High risk for adverse ? ? | <0.5 or drop | Bacterial ? ? ?| Discouraged ? | ? outcome ? | >80% from ? ?| infection ? ? ?| ? | ? SEE IMPORTANT NOTE ?| highest PCT ?| unlikely ? ? ? | ? | ? | level ?| ?| ? | ? + +-------- --------+ + -----+| >=0.5 ?| Bacterial ? ? ?| Encouraged ? ?| ? | ?| infection ? ? ?| ? | ? | ?| likely ? | ? | Consider treatment failure ?+ +------- ---------+ -+ if levels does not decrease | >1.0 ? | Bacterial ? ? ?| Strongly ? ? ?| appropriately ? | ?| infection very | encouraged ? ?| ? | ?| likely ? | ? | ? + +-------- --------+ + -----+ Percentage of drop of Procalcitonin calculation for Discontinuation of antibiotics in high-acuity patients with suspected or confirmed sepsis in Adults >= 18 years of age. ? Procalcitonin highest{}-Procalcitonin current{}Delta Procalcitonin = x100% ? Procalcitonin current {} IMPORTANT NOTE: Procalcitonin may be elevated without bacterial infection by physiologic stress related to trauma, aguilera, chronic dialysis, metastatic cancer, surgery in the past seven days, malaria, some fungal infections, and some forms of vasculitis. The interpretation algorithm may not apply to patients with immunosuppression (equivalent of >10 mg of prednisone daily), HIV with CD4 cell count < 350 cells/mm3, active malignancy on systemic chemotherapy, solid organ transplant or hematopoietic stem cell transplantation, or hospital acquired pneumonia. Additionally, some clinical trials of procalcitonin have excluded patients with shock requiring vasopressor use, acute respiratory failure requiring mechanical ventilation, or those with known lung abscess/empyema. For further information please refer to:[email or web address] Lab Interpretation Abnormal (test code = 43772-1) [facility] 20:34:29 Test Item Value Reference Range Interpretation Comments Procalcitonin (test 0.09 ng/mL <0.07 H code = 7594146459) BRYSON (test code = BRYSON) INTERPRETATION OF PROCALCITONIN RESULTS IN ADULTS >= 18 YEARS OF AGE Initiation and discontinuation of antibiotics on patients with suspected or confirmed Lower Respiratory Tract Infection in Adults >= 18 years of age. + +-------- --------+ + -----+|Procalcitonin |Interpretation ?|Antibiotic ? ? |Considerations ? |ng/mL ? | ?|recommendation | ? + +-------- --------+ + -----+| <0.1 ? | Bacterial ? ? ?| Strongly ? ? ?| ? | ?| infection very | discouraged ? | Overruling: ? | ?| unlikely ? ? ? | ? | ? Clinically unstable ? ? ? + +-------- --------+ + ? High risk for adverse ? ? | <0.25 ?| Bacterial ? ? ?| Discouraged ? | ? outcome ? | ?| infection ? ? ?| ? | ? SEE IMPORTANT NOTE ?| ?| unlikely ? ? ? | ? | ? + +-------- --------+ + -----+| >=0.25 ? ? ? | Bacterial ? ? ?| Encouraged ? ?| ? | ?| infection ? ? ?| ? | ? | ?| likely ? | ? | Consider treatment failure ?+ +------- ---------+ -+ if levels does not decrease | >0.5 ? | Bacterial ? ? ?| Strongly ? ? ?| appropriately ? | ?| infection very | encouraged ? ?| ? | ?| likely ? | ? | ? + +-------- --------+ + -----+ Discontinuation of antibiotics in high-acuity patients with suspected or confirmed sepsis in Adults >= 18 years of age. + +-------- --------+ + -----+|Procalcitonin |Interpretation ?|Antibiotic ? ? |Considerations ? |ng/mL ? | ?|recommendation | ? + +-------- --------+ + -----+| <0.25 ?| Bacterial ? ? ?| Strongly ? ? ?| ? | ?| infection very | discouraged ? | Overruling: ? | ?| unlikely ? ? ? | ? | ? Clinically unstable ? ? ? + +-------- --------+ + ? High risk for adverse ? ? | <0.5 or drop | Bacterial ? ? ?| Discouraged ? | ? outcome ? | >80% from ? ?| infection ? ? ?| ? | ? SEE IMPORTANT NOTE ?| highest PCT ?| unlikely ? ? ? | ? | ? | level ?| ?| ? | ? + +-------- --------+ + -----+| >=0.5 ?| Bacterial ? ? ?| Encouraged ? ?| ? | ?| infection ? ? ?| ? | ? | ?| likely ? | ? | Consider treatment failure ?+ +------- ---------+ -+ if levels does not decrease | >1.0 ? | Bacterial ? ? ?| Strongly ? ? ?| appropriately ? | ?| infection very | encouraged ? ?| ? | ?| likely ? | ? | ? + +-------- --------+ + -----+ Percentage of drop of Procalcitonin calculation for Discontinuation of antibiotics in high-acuity patients with suspected or confirmed sepsis in Adults >= 18 years of age. ? Procalcitonin highest{}-Procalcitonin current{}Delta Procalcitonin = x100% ? Procalcitonin current {} IMPORTANT NOTE: Procalcitonin may be elevated without bacterial infection by physiologic stress related to trauma, aguilera, chronic dialysis, metastatic cancer, surgery in the past seven days, malaria, some fungal infections, and some forms of vasculitis. The interpretation algorithm may not apply to patients with immunosuppression (equivalent of >10 mg of prednisone daily), HIV with CD4 cell count < 350 cells/mm3, active malignancy on systemic chemotherapy, solid organ transplant or hematopoietic stem cell transplantation, or hospital acquired pneumonia. Additionally, some clinical trials of procalcitonin have excluded patients with shock requiring vasopressor use, acute respiratory failure requiring mechanical ventilation, or those with known lung abscess/empyema. For further information please refer to:[email or web address] Lab Interpretation Abnormal (test code = 82594-3) [facility] [id number] 17:16:42 Test Item Value Reference Range Interpretation Comments IRON (test code = 9696286855) 31 ug/dL 50-160 L TIBC (test code = 8312490978) 211 ug/dL 250-410 L % FE SAT (test code = 8215589990) 15 % 20-50 L Lab Interpretation (test code = Abnormal 78854-7) [facility] [id number] 17:16:42 Test Item Value Reference Range Interpretation Comments IRON (test code = 7422364758) 31 ug/dL 50-160 L TIBC (test code = 2252319256) 211 ug/dL 250-410 L % FE SAT (test code = 5738297578) 15 % 20-50 L Lab Interpretation (test code = Abnormal 25602-0) [facility] [id number] 17:16:42 Test Item Value Reference Range Interpretation Comments IRON (test code = 4272888922) 31 ug/dL 50-160 L TIBC (test code = 0182962709) 211 ug/dL 250-410 L % FE SAT (test code = 5185849962) 15 % 20-50 L Lab Interpretation (test code = Abnormal 77971-8) [facility] / [id number] 15:25:33 Test Item Value Reference Range Interpretation Comments PROTIME PATIENT (test See_Comment [Auto mated message] code = 5964-2) The system [employer] generated this result transmitted ref erence range: 12.0 - 1 4.7 Seconds. The re ference range was not u sed to interpret this result as normal/abnor mal. INR (test code = 6301-6) Nor mal INR <1.1; Warfarin Therap eutic range 2.0 to 3. 0 or 2.5 to 3.5, dep ending upon the indica tions. Lab Interpretation (test Normal code = 41105-7) [facility]PROTHR[facility] / [id number] 15:25:33 Test Item Value Reference Range Interpretation Comments PROTIME PATIENT (test See_Comment [Auto mated message] code = 5964-2) The system [employer] generated this result transmitted ref erence range: 12.0 - 1 4.7 Seconds. The re ference range was not u sed to interpret this result as normal/abnor mal. INR (test code = 6301-6) Nor mal INR <1.1; Warfarin Therap eutic range 2.0 to 3. 0 or 2.5 to 3.5, dep ending upon the indica tions. Lab Interpretation (test Normal code = 24694-3) [facility]PROT[facility] / [id number] 15:25:33 Test Item Value Reference Range Interpretation Comments PROTIME PATIENT (test See_Comment [Auto mated message] code = 5964-2) The system [employer] generated this result transmitted ref erence range: 12.0 - 1 4.7 Seconds. The re ference range was not u sed to interpret this result as normal/abnor mal. INR (test code = 6301-6) Nor mal INR <1.1; Warfarin Therap eutic range 2.0 to 3. 0 or 2.5 to 3.5, dep ending upon the indica tions. Lab Interpretation (test Normal code = 60550-8) [facility] [id number] 10:28:31 Test Item Value Reference Range Interpretation Comments ESR (test code = See_Comment H [Automated message] 8935442461) The system [employer] generated this result transmitted ref erence range: 0 - 10 m m/HR. The reference r shanda was not used to interpret this result as normal/abnor mal. Lab Interpretation (test Abnormal code = 78848-9) [facility] [id number] 10:28:31 Test Item Value Reference Range Interpretation Comments ESR (test code = See_Comment H [Automated message] 6208612615) The system [employer] generated this result transmitted ref erence range: 0 - 10 m m/HR. The reference r shanda was not used to interpret this result as normal/abnor mal. Lab Interpretation (test Abnormal code = 39777-5) [facility] CenterSEDIMENTATION [id number] 10:28:31 Test Item Value Reference Range Interpretation Comments ESR (test code = See_Comment H [Automated message] 5252130242) The system [employer] generated this result transmitted ref erence range: 0 - 10 m m/HR. The reference r shanda was not used to interpret this result as normal/abnor mal. Lab Interpretation (test Abnormal code = 24811-9) [facility]FER[facility] [id number] 09:49:36 Test Item Value Reference Range Interpretation Comments FERRITIN (test code = 119.0 ng/mL 18.0-464.0 2481453341) BRYSON (test code = BRYSON) Biotin has been reported to cause a negative bias, interpret results relative to patient's use of biotin. Lab Interpretation (test Normal code = 55037-9) [facility] [id number] 09:49:36 Test Item Value Reference Range Interpretation Comments FERRITIN (test code = 119.0 ng/mL 18.0-464.0 9206157257) BRYSON (test code = BRYSON) Biotin has been reported to cause a negative bias, interpret results relative to patient's use of biotin. Lab Interpretation (test Normal code = 10407-4) [facility] [id number] 09:49:36 Test Item Value Reference Range Interpretation Comments FERRITIN (test code = 119.0 ng/mL 18.0-464.0 9386793442) BRYSON (test code = BRYSON) Biotin has been reported to cause a negative bias, interpret results relative to patient's use of biotin. Lab Interpretation (test Normal code = 57535-3) [facility]TH[facility] [id number] 09:45:35 Test Item Value Reference Range Interpretation Comments TSH (test code = See_Comment [Automated message] 9403420729) The system [employer] generated this result transmitted ref erence range: 0.45 - 4 .70 mIU/L. The refe rence range was not u sed to interpret this result as normal/abnor mal. Lab Interpretation (test Normal code = 99035-0) [facility] [id number] 09:45:35 Test Item Value Reference Range Interpretation Comments TSH (test code = See_Comment [Automated message] [id number]) The system [employer] generated this result transmitted ref erence range: 0.45 - 4 .70 mIU/L. The refe rence range was not u sed to interpret this result as normal/abnor mal. Lab Interpretation (test Normal code = 95299-0) [facility] [id number] 09:45:35 Test Item Value Reference Range Interpretation Comments TSH (test code = See_Comment [Automated message] [id number]) The system [employer] generated this result transmitted ref erence range: 0.45 - 4 .70 mIU/L. The refe rence range was not u sed to interpret this result as normal/abnor mal. Lab Interpretation (test Normal code = 89027-5) [facility] CenterN-[facility]MINAL [id number] 09:24:29 Test Item Value Reference Range Interpretation Comments NT-proBNP (test code 260 pg/mL See_Comment H [Autom ated = 8866387190) message] The system which generated this result transmitted reference range : <=125. The reference range was not used to interpret this result as normal/abnormal . BRYSON (test code = BRYSON) Biotin has been reported to cause a negative bias, interpret results relative to patient's use of biotin. Lab Interpretation Abnormal (test code = 74484-6) [facility] CenterN-[facility]MINAL [id number] 09:24:29 Test Item Value Reference Range Interpretation Comments NT-proBNP (test code 260 pg/mL See_Comment H [Autom ated = 6572875999) message] The system which generated this result transmitted reference range : <=125. The reference range was not used to interpret this result as normal/abnormal . BRYSON (test code = BRYSON) Biotin has been reported to cause a negative bias, interpret results relative to patient's use of biotin. Lab Interpretation Abnormal (test code = 64847-3) [facility] [id number] 09:24:29 Test Item Value Reference Range Interpretation Comments NT-proBNP (test code 260 pg/mL See_Comment H [Autom ated = 5124907929) message] The system which generated this result transmitted reference range : <=125. The reference range was not used to interpret this result as normal/abnormal . BRYSON (test code = BRYSON) Biotin has been reported to cause a negative bias, interpret results relative to patient's use of biotin. Lab Interpretation Abnormal (test code = 75649-3) [facility] Test Item Value Reference Range Interpretation Comments MAGNESIUM (test code = 6981339693) 1.6 mg/dL 1.7-2.4 L Lab Interpretation (test code = Abnormal 07784-9) [facility] CenterLIPID PANEL (50207)(TOTAL CHOLESTEROL, TRIGLYCERIDES, HDL)2021-07-03 09:14:31 Test Item Value Reference Range Interpretation Comments CHOL (test code = 215 mg/dL 120-200 H 3753931186) HDL (test code = 41 mg/dL >40 8616895211) HDLC RATIO (test code = See_Comment H [Au tomated message] 2840448254) The system [employer] generated this result transmit eulalio reference range : <=5.0. The refe rence range was not u sed to interpret th is result as normal/abnormal . TRIG (test code = 185 mg/dL 30-170 H 6066006824) LDL CHOL (test code = 137 mg/dL See_Comment [Auto mated message] 85250-9) The system [employer] generated this result transmit eulalio reference range : <=160. The refe rence range was not u sed to interpret th is result as normal/abnormal . VLDL (test code = 37 mg/dL 5-60 5793103764) Lab Interpretation (test Abnormal code = 58266-2) [facility]14[facility] Test Item Value Reference Range Interpretation Comments MAGNESIUM (test code = 8085670865) 1.6 mg/dL 1.7-2.4 L Lab Interpretation (test code = Abnormal 97090-8) [facility] (07224)(TOTAL CHOLESTEROL, TRIGLYCERIDES, HDL)2021-07-03 09:14:31 Test Item Value Reference Range Interpretation Comments CHOL (test code = 215 mg/dL 120-200 H 5598749176) HDL (test code = 41 mg/dL >40 9219989635) HDLC RATIO (test code = See_Comment H [Au tomated message] 8838884428) The system [employer] generated this result transmit eulalio reference range : <=5.0. The refe rence range was not u sed to interpret th is result as normal/abnormal . TRIG (test code = 185 mg/dL 30-170 H 8244185306) LDL CHOL (test code = 137 mg/dL See_Comment [Auto mated message] 64377-8) The system [employer] generated this result transmit eulalio reference range : <=160. The refe rence range was not u sed to interpret th is result as normal/abnormal . VLDL (test code = 37 mg/dL 5-60 5350374344) Lab Interpretation (test Abnormal code = 87086-6) [facility]MAGN[facility]UM[facility] 09:14:31 Test Item Value Reference Range Interpretation Comments MAGNESIUM (test code = 5022948863) 1.6 mg/dL 1.7-2.4 L Lab Interpretation (test code = Abnormal 75393-8) [facility] (50366)(TOTAL CHOLESTEROL, TRIGLYCERIDES, HDL)2021-07-03 09:14:31 Test Item Value Reference Range Interpretation Comments CHOL (test code = 215 mg/dL 120-200 H 1037395485) HDL (test code = 41 mg/dL >40 5483608746) HDLC RATIO (test code = See_Comment H [Au tomated message] 6650663812) The system Solicore generated this result transmit eulalio reference range : <=5.0. The refe rence range was not u sed to interpret th is result as normal/abnormal . TRIG (test code = 185 mg/dL 30-170 H 2944780114) LDL CHOL (test code = 137 mg/dL See_Comment [Auto mated message] 31807-7) The system Solicore generated this result transmit eulalio reference range : <=160. The refe rence range was not u sed to interpret th is result as normal/abnormal . VLDL (test code = 37 mg/dL 5-60 2045994525) Lab Interpretation (test Abnormal code = 49039-5) [facility] Test Item Value Reference Range Interpretation Comments PHOSPHORUS (test code = 0496429148) 3.6 mg/dL 2.5-5.0 Lab Interpretation (test code = Normal 85971-8) [facility]11 Test Item Value Reference Range Interpretation Comments PHOSPHORUS (test code = 4338994132) 3.6 mg/dL 2.5-5.0 Lab Interpretation (test code = Normal 62117-7) [facility]11 Test Item Value Reference Range Interpretation Comments PHOSPHORUS (test code = 8531285810) 3.6 mg/dL 2.5-5.0 Lab Interpretation (test code = Normal 23933-9) [facility] [id number] 09:13:51 Test Item Value Reference Range Interpretation Comments URIC ACID (test code = 7623805523) 4.4 mg/dL 3.6-8.0 Lab Interpretation (test code = Normal 78261-7) [facility] [id number] 09:13:51 Test Item Value Reference Range Interpretation Comments URIC ACID (test code = 6779315299) 4.4 mg/dL 3.6-8.0 Lab Interpretation (test code = Normal 23811-4) [facility] [id number] 09:13:51 Test Item Value Reference Range Interpretation Comments URIC ACID (test code = 4910103139) 4.4 mg/dL 3.6-8.0 Lab Interpretation (test code = Normal 87647-4) [facility] [id number] 09:13:50 Test Item Value Reference Range Interpretation Comments CK (test code = 4964342553) 122 U/L 33-194 Lab Interpretation (test code = Normal 65655-2) [facility] [id number] 09:13:50 Test Item Value Reference Range Interpretation Comments CK (test code = 9174291414) 122 U/L 33-194 Lab Interpretation (test code = Normal 91564-0) [facility] [id number] 09:13:50 Test Item Value Reference Range Interpretation Comments CK (test code = 3765162596) 122 U/L 33-194 Lab Interpretation (test code = Normal 57769-2) [facility]A1C)2021-07-03 08:59:52 Test Item Value Reference Range Interpretation Comments HGB A1C (test code = 12.9 % 4.0-5.7 H 4548-4) BRYSON (test code = BRYSON) Reference RangesNormal: <5.7%Prediabetes: 5.7 - 6.4%Diabetes: > 6.5% Lab Interpretation (test Abnormal code = 19545-6) [facility]2021-07-03 08:59:52 Test Item Value Reference Range Interpretation Comments HGB A1C (test code = 12.9 % 4.0-5.7 H 4548-4) BRYSON (test code = BRYSON) Reference RangesNormal: <5.7%Prediabetes: 5.7 - 6.4%Diabetes: > 6.5% Lab Interpretation (test Abnormal code = 92676-1) [facility]2021-07-03 08:59:52 Test Item Value Reference Range Interpretation Comments HGB A1C (test code = 12.9 % 4.0-5.7 H 4548-4) BRYSON (test code = BRYSON) Reference RangesNormal: <5.7%Prediabetes: 5.7 - 6.4%Diabetes: > 6.5% Lab Interpretation (test Abnormal code = 17840-2) [facility] [id number] 06:38:04 Test Item Value Reference Interpretation Comments Range TROPONIN I (test 0.014 ng/mL See_Comment [Automated code = 7312228766) message] The system which generated this result transmitted reference range : <=0.034. The reference range was not used to interpret this result as normal/abnormal . BRYSON (test code = Reference (Normal) BRYSON) Range (defined by the 99th percentile reference limit): <= 0.034 ng/mL Note: Cardiac troponin begins to rise 3-4 hours after the onset of ischemia. Repeat in 4-6 hours if the sample was drawn within 3-4 hours of the onset of the symptom and found normal. Diagnosis of myocardial injury is made with acute changes in cTn concentrations with at least one serial sample above the 99th percentile upper reference limit (URL), taken together with the patient's clinical presentation. Biotin has been reported to cause a negative bias, interpret results relative to patient's use of biotin. Lab Interpretation Normal (test code = 10476-0) [facility] [id number] 06:38:04 Test Item Value Reference Interpretation Comments Range TROPONIN I (test 0.014 ng/mL See_Comment [Automated code = 6547697782) message] The system which generated this result transmitted reference range : <=0.034. The reference range was not used to interpret this result as normal/abnormal . BRYSON (test code = Reference (Normal) BRYSON) Range (defined by the 99th percentile reference limit): <= 0.034 ng/mL Note: Cardiac troponin begins to rise 3-4 hours after the onset of ischemia. Repeat in 4-6 hours if the sample was drawn within 3-4 hours of the onset of the symptom and found normal. Diagnosis of myocardial injury is made with acute changes in cTn concentrations with at least one serial sample above the 99th percentile upper reference limit (URL), taken together with the patient's clinical presentation. Biotin has been reported to cause a negative bias, interpret results relative to patient's use of biotin. Lab Interpretation Normal (test code = 64191-9) [facility] [id number] 06:38:04 Test Item Value Reference Interpretation Comments Range TROPONIN I (test 0.014 ng/mL See_Comment [Automated code = 2130869440) message] The system which generated this result transmitted reference range : <=0.034. The reference range was not used to interpret this result as normal/abnormal . BRYSON (test code = Reference (Normal) BRYSON) Range (defined by the 99th percentile reference limit): <= 0.034 ng/mL Note: Cardiac troponin begins to rise 3-4 hours after the onset of ischemia. Repeat in 4-6 hours if the sample was drawn within 3-4 hours of the onset of the symptom and found normal. Diagnosis of myocardial injury is made with acute changes in cTn concentrations with at least one serial sample above the 99th percentile upper reference limit (URL), taken together with the patient's clinical presentation. Biotin has been reported to cause a negative bias, interpret results relative to patient's use of biotin. Lab Interpretation Normal (test code = 62115-6) [facility]. Metabolic Panel (10461)2021-07-03 06:26:45 Test Item Value Reference Range Interpretation Comments NA (test code = 131 mmol/L 135-145 L 7561113792) K (test code = 4.1 mmol/L 3.5-5.0 8595818722) CL (test code = 101 mmol/L 98-108 5152271023) CO2 TOTAL (test code = 23 mmol/L 23-31 8692947825) AGAP (test code = 2-16 4361129947) BUN (test code = 20 mg/dL 7-23 9497121698) GLUCOSE (test code = 403 mg/dL 70-110 H 7974550110) CREATININE (test code = 1.06 mg/dL 0.60-1.25 2489136914) TOTAL BILI (test code = 0.4 mg/dL 0.1-1.6 4879442144) CALCIUM (test code = 9.3 mg/dL 8.6-10.6 6880498636) T PROTEIN (test code = 7.5 g/dL 6.3-8.2 0477014810) ALBUMIN (test code = 3.9 g/dL 3.5-5.0 1899999143) ALK PHOS (test code = 122 U/L 34-122 0156550132) ALTv (test code = 16 U/L 5-50 1742-6) AST(SGOT) (test code = 18 U/L 13-40 3755450613) eGFR (test code = mL/min/1.73m2 5634689396) BRYSON (test code = BRYSON) Association of Glomerular Filtration Rate (GFR) and Staging of Kidney Disease* + --+ --+ ------+| GFR (mL/min/1.73 m2) ?| With Kidney Damage ?| ?Without Kidney Damage+ --------+ --------+ +| ?>90 ?| ?Stage one ?| ? Normal ?+ ---+ ---+ -------+| ?60-89 ?| ?Stage two ?| ? Decreased GFR ? + --+ --+ ------+| ?30-59 ?| ?Stage three ?| ? Stage three ? + --+ --+ ------+| ?15-29 ?| ?Stage four ? | ? Stage four ?+ ---+ ---+ -------+| ?<15 (or dialysis) ? ?| ?Stage five ? | ? Stage five ?+ ---+ ---+ -------+ *Each stage assumes the associated GFR level has been in effect for at least three months. ?Stages 1 to 5, with or without kidney disease, indicate chronic kidney disease. Notes: Determination of stages one and two (with eGFR >59mL/min/1.73 m2) requires estimation of kidney damage for at least three months as defined by structural or functional abnormalities of the kidney, manifested by either:Pathological abnormalities or Markers of kidney damage (including abnormalities in the composition of the blood or urine or abnormalities in imaging tests). Lab Interpretation Abnormal (test code = 83409-6) [facility] Metabolic Panel (48470)2021-07-03 06:26:45 Test Item Value Reference Range Interpretation Comments NA (test code = 131 mmol/L 135-145 L 8388867686) K (test code = 4.1 mmol/L 3.5-5.0 0145735604) CL (test code = 101 mmol/L 98-108 8541055348) CO2 TOTAL (test code = 23 mmol/L 23-31 6136834803) AGAP (test code = 2-16 6446414067) BUN (test code = 20 mg/dL 7-23 7081801165) GLUCOSE (test code = 403 mg/dL 70-110 H 5320890911) CREATININE (test code = 1.06 mg/dL 0.60-1.25 1626884669) TOTAL BILI (test code = 0.4 mg/dL 0.1-1.1 5809454598) CALCIUM (test code = 9.3 mg/dL 8.6-10.6 4646723498) T PROTEIN (test code = 7.5 g/dL 6.3-8.2 5640945092) ALBUMIN (test code = 3.9 g/dL 3.5-5.0 3080966477) ALK PHOS (test code = 122 U/L 34-122 6256223654) ALTv (test code = 16 U/L 5-50 1742-6) AST(SGOT) (test code = 18 U/L 13-40 5305948079) eGFR (test code = mL/min/1.73m2 7249302677) BRYSON (test code = BRYSON) Association of Glomerular Filtration Rate (GFR) and Staging of Kidney Disease* + --+ --+ ------+| GFR (mL/min/1.73 m2) ?| With Kidney Damage ?| ?Without Kidney Damage+ --------+ --------+ +| ?>90 ?| ?Stage one ?| ? Normal ?+ ---+ ---+ -------+| ?60-89 ?| ?Stage two ?| ? Decreased GFR ? + --+ --+ ------+| ?30-59 ?| ?Stage three ?| ? Stage three ? + --+ --+ ------+| ?15-29 ?| ?Stage four ? | ? Stage four ?+ ---+ ---+ -------+| ?<15 (or dialysis) ? ?| ?Stage five ? | ? Stage five ?+ ---+ ---+ -------+ *Each stage assumes the associated GFR level has been in effect for at least three months. ?Stages 1 to 5, with or without kidney disease, indicate chronic kidney disease. Notes: Determination of stages one and two (with eGFR >59mL/min/1.73 m2) requires estimation of kidney damage for at least three months as defined by structural or functional abnormalities of the kidney, manifested by either:Pathological abnormalities or Markers of kidney damage (including abnormalities in the composition of the blood or urine or abnormalities in imaging tests). Lab Interpretation Abnormal (test code = 26854-3) [facility].. Metabolic Panel (17769)2021-07-03 06:26:45 Test Item Value Reference Range Interpretation Comments NA (test code = 131 mmol/L 135-145 L 3516015293) K (test code = 4.1 mmol/L 3.5-5.0 6468658039) CL (test code = 101 mmol/L 98-108 6321407985) CO2 TOTAL (test code = 23 mmol/L 23-31 5205195829) AGAP (test code = 2-16 4413056233) BUN (test code = 20 mg/dL 7-23 5153054192) GLUCOSE (test code = 403 mg/dL 70-110 H 9121052781) CREATININE (test code = 1.06 mg/dL 0.60-1.25 9934216989) TOTAL BILI (test code = 0.4 mg/dL 0.1-1.3 0836092533) CALCIUM (test code = 9.3 mg/dL 8.6-10.6 5763030544) T PROTEIN (test code = 7.5 g/dL 6.3-8.2 8702378122) ALBUMIN (test code = 3.9 g/dL 3.5-5.0 3736145359) ALK PHOS (test code = 122 U/L 34-122 1459759824) ALTv (test code = 16 U/L 5-50 1742-6) AST(SGOT) (test code = 18 U/L 13-40 6772880811) eGFR (test code = mL/min/1.73m2 3651238809) BRYSON (test code = BRYSON) Association of Glomerular Filtration Rate (GFR) and Staging of Kidney Disease* + --+ --+ ------+| GFR (mL/min/1.73 m2) ?| With Kidney Damage ?| ?Without Kidney Damage+ --------+ --------+ +| ?>90 ?| ?Stage one ?| ? Normal ?+ ---+ ---+ -------+| ?60-89 ?| ?Stage two ?| ? Decreased GFR ? + --+ --+ ------+| ?30-59 ?| ?Stage three ?| ? Stage three ? + --+ --+ ------+| ?15-29 ?| ?Stage four ? | ? Stage four ?+ ---+ ---+ -------+| ?<15 (or dialysis) ? ?| ?Stage five ? | ? Stage five ?+ ---+ ---+ -------+ *Each stage assumes the associated GFR level has been in effect for at least three months. ?Stages 1 to 5, with or without kidney disease, indicate chronic kidney disease. Notes: Determination of stages one and two (with eGFR >59mL/min/1.73 m2) requires estimation of kidney damage for at least three months as defined by structural or functional abnormalities of the kidney, manifested by either:Pathological abnormalities or Markers of kidney damage (including abnormalities in the composition of the blood or urine or abnormalities in imaging tests). Lab Interpretation Abnormal (test code = 74689-2) [facility] With [id number] 06:17:42 Test Item Value Reference Range Interpretation Comments WBC (test code = See_Comment H [Automated 7090-2) message] The sy stem which generated this result transmitted reference range : 4.20 - 10.70 10*3/?L. The reference range was not used to interpret this result as normal/abnormal . RBC (test code = See_Comment L [Automated 789-8) message] The sy stem which generated this result transmitted reference range : 4.26 - 5.52 10*6/?L. The reference range was not used to interpret this result as normal/abnormal . HGB (test code = 12.2 g/dL 12.2-16.4 718-7) HCT (test code = 35.2 % 38.4-49.3 L 4544-3) MCV (test code = 90.7 fL 81.7-95.6 787-2) MCH (test code = 31.4 pg 26.1-32.7 785-6) MCHC (test code = 34.7 g/dL 31.2-35.0 786-4) RDW-SD (test code = 40.6 fL 38.5-51.6 40560-0) RDW-CV (test code = 12.2 % 12.1-15.4 788-0) PLT (test code = See_Comment [Automated 777-3) message] The sy stem which generated this result transmitted reference range : 150 - 328 10*3/ ?L. The reference r shanda was not used to interpret this result as normal/abnormal . MPV (test code = 13.0 fL 9.8-13.0 74676-1) NRBC/100 WBC (test See_Comment [Automat ed code = 6588998822) message] The system which generated this result transmitted reference range : 0.0 - 10.0 /100 WBCs. The refer ence range was not u sed to interpret th is result as normal/abnormal . NRBC x10^3 (test code <0.01 See_Comment [Auto mated = 6882951905) message] The s ystem which generated this result transmitted reference range : 10*3/?L. The reference range was not used to interpret this result as normal/abnormal . GRAN MAT (NEUT) % 77.9 % (test code = 770-8) IMM GRAN % (test code 0.50 % = 3109162532) LYMPH % (test code = 11.6 % 736-9) MONO % (test code = 9.2 % 5905-5) EOS % (test code = 0.5 % 713-8) BASO % (test code = 0.3 % 706-2) GRAN MAT x10^3(ANC) 9.93 10*3/uL 1.99-6.95 H (test code = 4380982885) IMM GRAN x10^3 (test 0.07 10*3/uL 0.00-0.06 H code = 5271993104) LYMPH x10^3 (test code 1.48 10*3/uL 1.09-3.23 = 731-0) MONO x10^3 (test code 1.18 10*3/uL 0.36-1.02 H = 742-7) EOS x10^3 (test code = 0.06 10*3/uL 0.06-0.53 711-2) BASO x10^3 (test code 0.04 10*3/uL 0.01-0.09 = 704-7) Lab Interpretation Abnormal (test code = 01268-2) [facility] With [id number] 06:17:42 Test Item Value Reference Range Interpretation Comments WBC (test code = See_Comment H [Automated 6690-2) message] The sy stem which generated this result transmitted reference range : 4.20 - 10.70 10*3/?L. The reference range was not used to interpret this result as normal/abnormal . RBC (test code = See_Comment L [Automated 789-8) message] The sy stem which generated this result transmitted reference range : 4.26 - 5.52 10*6/?L. The reference range was not used to interpret this result as normal/abnormal . HGB (test code = 12.2 g/dL 12.2-16.4 718-7) HCT (test code = 35.2 % 38.4-49.3 L 4544-3) MCV (test code = 90.7 fL 81.7-95.6 787-2) MCH (test code = 31.4 pg 26.1-32.7 785-6) MCHC (test code = 34.7 g/dL 31.2-35.0 786-4) RDW-SD (test code = 40.6 fL 38.5-51.6 00975-6) RDW-CV (test code = 12.2 % 12.1-15.4 788-0) PLT (test code = See_Comment [Automated 777-3) message] The sy stem which generated this result transmitted reference range : 150 - 328 10*3/ ?L. The reference r shanda was not used to interpret this result as normal/abnormal . MPV (test code = 13.0 fL 9.8-13.0 95074-7) NRBC/100 WBC (test See_Comment [Automat ed code = 2288645877) message] The system which generated this result transmitted reference range : 0.0 - 10.0 /100 WBCs. The refer ence range was not u sed to interpret th is result as normal/abnormal . NRBC x10^3 (test code <0.01 See_Comment [Auto mated = 5228800748) message] The s ystem which generated this result transmitted reference range : 10*3/?L. The reference range was not used to interpret this result as normal/abnormal . GRAN MAT (NEUT) % 77.9 % (test code = 770-8) IMM GRAN % (test code 0.50 % = 7150498784) LYMPH % (test code = 11.6 % 736-9) MONO % (test code = 9.2 % 5905-5) EOS % (test code = 0.5 % 713-8) BASO % (test code = 0.3 % 706-2) GRAN MAT x10^3(ANC) 9.93 10*3/uL 1.99-6.95 H (test code = 1322567499) IMM GRAN x10^3 (test 0.07 10*3/uL 0.00-0.06 H code = 4044795527) LYMPH x10^3 (test code 1.48 10*3/uL 1.09-3.23 = 731-0) MONO x10^3 (test code 1.18 10*3/uL 0.36-1.02 H = 742-7) EOS x10^3 (test code = 0.06 10*3/uL 0.06-0.53 711-2) BASO x10^3 (test code 0.04 10*3/uL 0.01-0.09 = 704-7) Lab Interpretation Abnormal (test code = 17027-8) [facility] With [id number] 06:17:42 Test Item Value Reference Range Interpretation Comments WBC (test code = See_Comment H [Automated 1790-2) message] The sy stem which generated this result transmitted reference range : 4.20 - 10.70 10*3/?L. The reference range was not used to interpret this result as normal/abnormal . RBC (test code = See_Comment L [Automated 569-8) message] The sy stem which generated this result transmitted reference range : 4.26 - 5.52 10*6/?L. The reference range was not used to interpret this result as normal/abnormal . HGB (test code = 12.2 g/dL 12.2-16.4 718-7) HCT (test code = 35.2 % 38.4-49.3 L 4544-3) MCV (test code = 90.7 fL 81.7-95.6 787-2) MCH (test code = 31.4 pg 26.1-32.7 785-6) MCHC (test code = 34.7 g/dL 31.2-35.0 786-4) RDW-SD (test code = 40.6 fL 38.5-51.6 93452-1) RDW-CV (test code = 12.2 % 12.1-15.4 788-0) PLT (test code = See_Comment [Automated 777-3) message] The sy stem which generated this result transmitted reference range : 150 - 328 10*3/ ?L. The reference r shanda was not used to interpret this result as normal/abnormal . MPV (test code = 13.0 fL 9.8-13.0 47849-8) NRBC/100 WBC (test See_Comment [Automat ed code = 3361840749) message] The system which generated this result transmitted reference range : 0.0 - 10.0 /100 WBCs. The refer ence range was not u sed to interpret th is result as normal/abnormal . NRBC x10^3 (test code <0.01 See_Comment [Auto mated = 2048406511) message] The s ystem which generated this result transmitted reference range : 10*3/?L. The reference range was not used to interpret this result as normal/abnormal . GRAN MAT (NEUT) % 77.9 % (test code = 770-8) IMM GRAN % (test code 0.50 % = 8359507861) LYMPH % (test code = 11.6 % 736-9) MONO % (test code = 9.2 % 5905-5) EOS % (test code = 0.5 % 713-8) BASO % (test code = 0.3 % 706-2) GRAN MAT x10^3(ANC) 9.93 10*3/uL 1.99-6.95 H (test code = 1317844929) IMM GRAN x10^3 (test 0.07 10*3/uL 0.00-0.06 H code = 1759876524) LYMPH x10^3 (test code 1.48 10*3/uL 1.09-3.23 = 731-0) MONO x10^3 (test code 1.18 10*3/uL 0.36-1.02 H = 742-7) EOS x10^3 (test code = 0.06 10*3/uL 0.06-0.53 711-2) BASO x10^3 (test code 0.04 10*3/uL 0.01-0.09 = 704-7) Lab Interpretation Abnormal (test code = 51688-2) [facility]
[2021-11-21 09:32] LABS: Absolute Lymphocytes (CBC) 1.8 K/uL (0.7-4.9); Hematocrit 18.7 % (39.6-49.0); Lymphocytes % 16.3 % (15.3-44.8); MPV 10.3 fL (7.6-11.3); RBC Red Blood Cell Count 1.96 M/uL (4.33-5.43)
[2021-11-21 09:38] LABS: Protime INR 0.98
[2021-11-21 09:50] LABS: Potassium 3.9 mmol/L (3.5-5.1); Troponin High Sensitivity 21.3 pg/mL (<58.9)
[2021-11-21 10:05] LABS: SARS-COV-2 RT PCR NEGATIVE (NEGATIVE)
--- NOTE | 2021-11-21 10:29 | RAD REPORT ---
EXAM DESCRIPTION: RAD - Chest Single View - 11/21/2021 10:22 am CLINICAL HISTORY: Dyspnea;Cough COMPARISON: CHEST PA AND LAT 2 VIEW dated 06/28/2009 FINDINGS: Lines: None. Lungs: Right perihilar masslike opacity. Other patchy airspace disease is noted bilaterally Pleural: No significant pleural effusions or pneumothorax. Cardiac: Mild cardiomegaly. Bones: No acute fractures. Other: IMPRESSION: Multifocal airspace disease concerning for pneumonia with or without superimposed edema. Masslike right upper lobe process. Cannot exclude neoplasm. A chest CT is pending.
--- NOTE | 2021-11-21 10:53 | RAD REPORT ---
EXAM DESCRIPTION: CT - Chest For Pe Angio - 11/21/2021 10:41 am CLINICAL HISTORY: DYSPNEA COMPARISON: No comparisons FINDINGS: Chest Wall: No suspicious thyroid nodules or pathologic lymphadenopathy. Lungs: Interlobular septal thickening. Perihilar ground-glass opacities. Pleura: Small moderate pleural effusions. Mediastinum/elizabeth: No pathologic lymphadenopathy. Pulmonary arteries/Aorta: No filling defect identified. No aortic aneurysm. Heart: No significant pericardial effusion. Normal heart size. Upper abdomen: No acute abnormality. Bones: No acute abnormality. Degenerative changes are present in the spine. Mild wedge compression de formities appear chronic. All CT scans are performed using dose optimization technique as appropriate and may include automated exposure control or mA/KV adjustment according to patient size. IMPRESSION: Negative for pulmonary embolism. Perihilar ground-glass opacities, interlobular septal t hickening, and bilateral pleural effusions likely reflecting pulmonary edema. Pneumonia less likely.
--- NOTE | 2021-11-21 11:27 | ER ---
Nurse's Notes [facility] Name: Michelet Bergeron Age: 56 yrs Sex: Male : 1965 Arrival Date: 11/21/2021 Time: 08:19 Bed 2 Private MD: Diagnosis: Anemia, unspecified;Acute pulmonary edema;Dyspnea, unspecified Presentation: 11/21 08:32 Chief complaint: Patient states: SOB and cough for 3 days. No fever. Coronavirus ll1 screen: Vaccine status: Patient reports receiving the 2nd dose of the covid vaccine. Client denies travel out of the [place] in the last 14 days. congestion, cough unrelated to allergies, difficulty breathing, fatigue, shortness of breath, Client presents with at least one sign or symptom that may indicate coronavirus-19. Standard/surgical mask placed on the client. Ebola Screen: Patient denies travel to an Ebola-affected area in the 21 days before illness onset. Initial Sepsis Screen: Does the patient meet any 2 criteria? HR > 90 bpm. No. Patient's initial sepsis screen is negative. Does the patient have a suspected source of infection? Yes: Productive cough/pneumonia. Risk Assessment: Do you want to hurt yourself or someone else? Patient reports no desire to harm self or others. Onset of symptoms was November 19, 2021. 08:32 Method Of Arrival: Wheelchair ll1 08:32 Acuity: FERMIN 3 ll1 Triage Assessment: 08:35 General: Appears in no apparent distress. obese, Behavior is cooperative, appropriate bp for age, anxious. Pain: Denies pain. EENT: No deficits noted. Neuro: Level of Consciousness is awake, alert, obeys commands, Oriented to Appropriate for age. Cardiovascular: Rhythm is sinus rhythm. Respiratory: Reports shortness of breath cough that is Onset: The symptoms/episode began/occurred 3 DAYS AGO, the patient has mild shortness of breath. GI: No signs and/or symptoms were reported involving the gastrointestinal system. : No signs and/or symptoms were reported regarding the genitourinary system. Derm: No deficits noted. Musculoskeletal: No deficits noted. Historical: - Allergies: 08:32 No Known Allergies; ll1 - PMHx: 08:32 Diabetes mellitus; Hypertensive disorder; ll1 - PSHx: 08:32 None; ll1 - Immunization history:: Client reports receiving the 2nd dose of the Covid vaccine. - Social history:: Smoking status: Patient denies any tobacco usage or history of. - Family history:: not pertinent. - Hospitalizations: : No recent hospitalization is reported. Screenin:30 Abuse screen: Denies threats or abuse. Denies injuries from another. Nutritional bp screening: No deficits noted. Tuberculosis screening: No symptoms or risk factors identified. Fall Risk None identified. Assessment: 09:30 General: SEE TRIAGE NOTE. bp 11:07 Reassessment: No changes from previously documented assessment. Patient and/or family bp updated on plan of care and expected duration. Pain level reassessed. HGB GROSSLY ABNORMAL, PROVIDER INFORMED. Pain: Denies pain. Cardiovascular: Rhythm is sinus rhythm. Respiratory: Airway is patent Respiratory effort is even, unlabored, Breath sounds are clear bilaterally. 12:35 Reassessment: HOSPITALIST AT B/S. bp Vital Signs: 08:32 BP 162 / 82; Pulse 95; Resp 22; Temp 97.0; Pulse Ox 95% on R/A; Weight 99.79 kg; Height ll1 5 ft. 3 in. (160.02 cm); Pain 8/10; 11:06 BP 153 / 89; Pulse 84; Resp 16; Pulse Ox 95% ; bp 12:36 BP 147 / 73; Pulse 94; Resp 19; Pulse Ox 94% ; bp 08:32 Body Mass Index 38.97 (99.79 kg, 160.02 cm) ll1 ED Course: 08:19 Patient arrived in ED. am2 08:31 Arm band placed on Patient placed in an exam room, on a stretcher. ll1 08:34 Triage completed. ll1 08:40 Don Bui MD is Attending Physician. rn 08:46 Wilfrid Lopez, SUHA is Primary Nurse. bp 09:24 Inserted saline lock: 20 gauge in right forearm, using aseptic technique. mb7 09:30 Patient has correct armband on for positive identification. Bed in low position. Call bp light in reach. Side rails up X2. Adult w/ patient. 10:22 XRAY CXR (1 view) In Process Unspecified. EDMS 10:41 CT Chest For PE Angio In Process Unspecified. EDMS 11:27 Jax Bui MD is Hospitalizing Provider. rn 11:28 Bb Add On Sent. bp Administered Medications: 11:30 Drug: Lasix (furosemide) 40 mg Route: IVP; Site: right forearm; bp Point of Care Testing: Guaiac: 09:42 Stool Guaiac: Negative; Stool Hemoccult Control: Pass; rn Outcome: 11:27 Decision to Hospitalize by Provider. rn 15:40 Patient left the ED. iw Signatures: Dispatcher [employer] EDSara Rasmussen RN RN iw Don Bui MD MD rn Moreno, Amanda am2 Peltier, Brian, RN RN bp Lewis, Lynsay, RN RN [facility] [place] [id number]
--- NOTE | 2021-11-21 11:28 | EDPHYS ---
Physician Documentation [facility] Name: Michelet Bergeron Age: 56 yrs Sex: Male : 1965 Arrival Date: 11/21/2021 Time: 08:19 Bed 2 Private MD: ED Physician Don Bui HPI: 11/21 08:55 This 56 yrs old Male presents to ER via Wheelchair with complaints of rn Breathing Difficulty. 08:55 The patient has shortness of breath at rest, with light activity. Onset: The rn symptoms/episode began/occurred 2 day(s) ago. Duration: The symptoms are continuous. The patient's shortness of breath is aggravated by exertion, light activity, supine position, is alleviated by nothing. Associated signs and symptoms: Pertinent positives: non-productive cough, Pertinent negatives: fever, hemoptysis. Severity of symptoms: At their worst the symptoms were moderate in the emergency department the symptoms are unchanged. The patient has not experienced similar symptoms in the past. The patient has not recently seen a physician. Historical: - Allergies: 08:32 No Known Allergies; ll1 - PMHx: 08:32 Diabetes mellitus; Hypertensive disorder; ll1 - PSHx: 08:32 None; ll1 - Immunization history:: Client reports receiving the 2nd dose of the Covid vaccine. - Social history:: Smoking status: Patient denies any tobacco usage or history of. - Family history:: not pertinent. - Hospitalizations: : No recent hospitalization is reported. ROS: 08:55 Constitutional: Negative for fever, chills, and weight loss, Eyes: Negative for injury, rn pain, redness, and discharge, Neck: Negative for injury, pain, and swelling, Cardiovascular: Negative for chest pain, palpitations, and edema, Respiratory: Negative for pleuritic chest pain Abdomen/GI: Negative for abdominal pain, nausea, vomiting, diarrhea, and constipation, Back: Negative for injury and pain, MS/Extremity: Negative for injury and deformity, Skin: Negative for injury, rash, and discoloration, Neuro: Negative for headache, numbness, tingling, and seizure. Exam: 08:50 ECG was reviewed by the Attending Physician. rn 08:55 Constitutional: This is a well developed, well nourished patient who is awake, alert, rn moderate tachypnea Head/Face: Normocephalic, atraumatic. Eyes: Periorbital areas with no swelling, redness, or edema. Cardiovascular: Regular rate and rhythm. No pulse deficits. Respiratory: Moderate tachypnea, no retractions Abdomen/GI: soft, non-tender Skin: Warm, dry MS/ Extremity: Pulses equal, no cyanosis. 1+ non-pitting edema bilateral lower ext Neuro: Awake and alert, GCS 15 Vital Signs: 08:32 BP 162 / 82; Pulse 95; Resp 22; Temp 97.0; Pulse Ox 95% on R/A; Weight 99.79 kg; Height ll1 5 ft. 3 in. (160.02 cm); Pain 8/10; 11:06 BP 153 / 89; Pulse 84; Resp 16; Pulse Ox 95% ; bp 12:36 BP 147 / 73; Pulse 94; Resp 19; Pulse Ox 94% ; bp 08:32 Body Mass Index 38.97 (99.79 kg, 160.02 cm) ll1 MDM: 08:40 Patient medically screened. rn 11:26 Differential diagnosis: Anemia CHF exacerbation, pneumonia, Pneumothorax pulmonary rn edema, Pulmonary Embolism. Data reviewed: vital signs, nurses notes, lab test result(s), EKG, radiologic studies, CT scan, plain films, and as a result, I will admit patient. Counseling: I had a detailed discussion with the patient and/or guardian regarding: the historical points, exam findings, and any diagnostic results supporting the discharge/admit diagnosis, lab results, radiology results, the need for further work-up and treatment in the hospital. Response to treatment: the patient's symptoms have mildly improved after treatment, and as a result, I will admit patient. Admission orders: after a detailed discussion of the patient's condition and case, the admit orders are written by me. 11/21 08:47 Order name: BMP; Complete Time: 10:17 rn 11/21 08:47 Order name: Blood Culture Adult (2) rn 11/21 08:47 Order name: CBC with Diff; Complete Time: 09:42 rn 11/21 08:47 Order name: D-Dimer; Complete Time: 09:49 rn 11/21 08:47 Order name: NT PRO-BNP; Complete Time: 10:17 rn 11/21 08:47 Order name: PT-INR; Complete Time: 09:49 rn 11/21 08:47 Order name: Ptt, Activated; Complete Time: 09:49 rn 11/21 08:47 Order name: Troponin HS; Complete Time: 10:17 rn 11/21 08:47 Order name: COVID-19/FLU A+B (Document "Date of Onset" if Symptomatic); Complete Time: rn 10:17 11/21 09:42 Order name: Type And Screen rn 11/21 09:42 Order name: Type and Screen EDLA 11/21 10:51 Order name: Bb Add On bd 11/21 10:54 Order name: Packed RBC Leukored EDLA 11/21 11:26 Order name: B12; Complete Time: 13:57 rn 11/21 08:47 Order name: XRAY CXR (1 view); Complete Time: 10:46 rn 11/21 08:47 Order name: EKG; Complete Time: 08:47 rn 11/21 08:47 Order name: Cardiac monitoring; Complete Time: 09:54 rn 11/21 08:47 Order name: EKG - Nurse/Tech; Complete Time: 08:48 rn 11/21 08:47 Order name: IV Saline Lock; Complete Time: 09:25 rn 11/21 08:47 Order name: Labs collected and sent; Complete Time: 09:25 rn 11/21 08:47 Order name: O2 Per Protocol; Complete Time: 08:49 rn 11/21 08:47 Order name: O2 Sat Monitoring; Complete Time: 08:49 rn 11/21 10:18 Order name: CT Chest For PE Angio; Complete Time: 10:54 rn 11/21 11:26 Order name: Ferritin; Complete Time: 13:57 rn 11/21 11:26 Order name: Folic Acid,Serum (folate); Complete Time: 13:57 rn 11/21 11:26 Order name: Retic Count; Complete Time: 13:57 rn 11/21 11:26 Order name: TRANSFERRIN SAT/IRON BINDING; Complete Time: 13:57 11/21 13:04 Order name: CONS Physician Consult EDLA EC:50 Rate is 93 beats/min. Rhythm is regular. QRS [place] is Normal. OR interval is normal. QRS rn interval is normal. QT interval is normal. No Q waves. T waves are Normal. No ST changes noted. Clinical impression: Normal ECG. Interpreted by me. Reviewed by me. Administered Medications: 11:30 Drug: Lasix (furosemide) 40 mg Route: IVP; Site: right forearm; bp Point of Care Testing: Guaiac: 09:42 Stool Guaiac: Negative; Stool Hemoccult Control: Pass; rn Disposition Summary: 11/21/21 11:27 Hospitalization Ordered Hospitalization Status: Inpatient Admission rn Provider: Jax Bui rn Location: Telemetry/[facility] (Inpatient) rn Condition: Stable rn Problem: new rn Symptoms: have improved rn Bed/Room Type: Standard rn Room Assignment: 211(11/21/21 14:19) dw Diagnosis - Anemia, unspecified rn - Acute pulmonary edema rn - Dyspnea, unspecified rn Forms: - Medication Reconciliation Form rn - SBAR form rn Signatures: Dispatcher [employer] EDLA Carlee Garcias RN Don Bennett MD MD rn Peltier, Brian, RN Adrian Hobbs, RN RN ll1 Corrections: (The following items were deleted from the chart) 11:27 11:27 FERRITIN+C.LAB.BRZ ordered. [facility] EDLA 14:19 11:27 rn pawel
[2021-11-21] MEDS ORDERED: FUROSEMIDE 40 MG/4 ML VIAL ONE ×2 (11:38→11:41)
[2021-11-21 12:08] LABS: RBC Red Blood Cell Count 3.41 M/uL (4.33-5.43)
[2021-11-21 12:52] LABS: Folic Acid, (Folate) > 20.0 ng/mL (3.1-17.5); Transferrin 202 mg/dL (200-360)
--- NOTE | 2021-11-21 13:13 | P.HP ---
Certification for Inpatient Patient admitted to: Inpatient With expected LOS: >2 Midnights Practitioner: I am a practitioner with admitting privileges, knowledge of patient current condition, hospital course, and medical plan of care. Services: Services provided to patient in accordance with Admission requirements found in Title 42 Section 412.3 of the Code of Federal Regulations Patient History Date of Service: 11/21/21 Reason for admission: new CHF, anemia History of Present Illness: 56yo M, PMH: HTN, NIDDM2 presents to ED due to 3 days of progressively worsening dyspnea and bilateral lower extremity edema. Patient reports having some chest discomfort associated with physical activity, coughing, deep inspiration. Patient denies any recent illness, no nausea/vomiting, no fever, no recent sick contacts. In the ED, CXR concerning for possible pneumonia versus pulmonary edema. CT chest negative for PE, and more consistent with pulmonary edema. He was given IV Lasix and reported some improvement in his respirations. He states he had his right toe amputated 2 months ago, and at that time was placed on pills for diabetes. It was the only recent change in any of his medications. He denies any hailey bleeding, denies any blood in his urine or stool. Denies any prior history of anemia. ER physician ordered 2 units of blood and Lasix for the patient, requests admission for further evaluation. Allergies No Known Allergies Allergy (Verified 11/21/21 15:52) Home Medications: Amlodipine [Norvasc] 10 mg PO DAILY 11/21/21 Metformin HCl [Glucophage] 850 mg PO DAILY 11/21/21 - Past Medical/Surgical History -: NIDDM2 -: HTN -: R toe amputation - Family History Father -: Heart disease (~65 with [place]) - Social History Smoking Status: Never smoker Alcohol use: Yes Place of Residence: Home Review of Systems 10-point ROS is otherwise unremarkable Physical Examination - Physical Exam General: Alert, In no apparent distress, Oriented x3 HEENT: Sclerae nonicteric Respiratory: Crackles/rales (mild, bilaterally at bases), Other (mildly labored on room air) Cardiovascular: Edema (3+ b/l lower extremity edema R>L) Gastrointestinal: Soft and benign, Non-distended, No tenderness Musculoskeletal: No erythema, No tenderness Integumentary: No rashes, No significant lesion Neurological: Normal speech, Normal strength at 5/5 x4 extr, Normal affect - Studies Laboratory Data (last 24 hrs) 11/21/21 09:10: PT 11.3, INR 0.98, APTT 33.3 11/21/21 09:10: WBC 11.30 H, Hgb 6.1 L*, Hct 18.7 L*, Plt Count 320 11/21/21 09:10: Sodium 141, Potassium 3.9, BUN 19 H, Creatinine 1.07, Glucose 166 H Assessment and Plan - Advance Directives Does patient have a Living Will: No Does patient have a Durable POA for Healthcare: No Physician Review Additional Text: Problem List Chest Pain Dyspnea with lower extremity edema Anemia, suspect chronic NIDDM2 HTN improved in ED with lasix concern for new onset CHF pt with anemia as well, likely chronic. denies any bleeding, denies prior history check iron studies, 2uPRBC ordered in ED, lasix to be given continue IV daily lasix 40mg for now Cardiology consulted trend trop echo ordered pulm edema may be secondary to anemia / heart failure VTE: lovenox Code: full Dispo: anticipate dc home in 1-2 days Time Spent Managing Pts Care (In Minutes): 60
[2021-11-21 16:14] VITALS: BMI 38.2
[2021-11-21] MEDS ORDERED: ONDANSETRON 4 MG/2 ML VIAL IV PRN (16:15)
[2021-11-21] MEDS: INSULIN -REGULAR HUMAN 50 UNIT/0.5 ML ML SQ SCH ×2 (16:30→20:39)
[2021-11-21] MEDS: ENOXAPARIN 40 MG/0.4 ML SQ SCH (16:32)
[2021-11-21] MEDS ORDERED: FUROSEMIDE 40 MG/4 ML VIAL IV ONE (17:00)
[2021-11-21] MEDS ORDERED: INFLUENZA VACCINE (for 6+ mo) 0.5 ML DOSE IMVAC ONE (17:00)
[2021-11-21] MEDS ORDERED: NA CHLORIDE 0.9% 250 ML ONE (17:31)
--- NOTE | 2021-11-21 20:46 | CON ---
Date of Consultation: 11/21/2021 Reason For Consultation: New-onset congestive heart failure. History Of Present Illness: 56-year-old male, history of hypertension, diabetes, presented with wors ening shortness of breath, lower extremity edema, and orthopnea. Evaluation in the emergency room, f ound to have pulmonary edema, received a dose of Lasix and he is breathing much better, however found to have a hemoglobin of 6. Denies any bleeding. Past Medical History: As outlined above. Medications: Refer reconciliation sheet for detailed list. Allergies: NO KNOWN DRUG ALLERGIES. Family History: No mature coronary artery disease or cancer. Social History: He does not smoke. He drinks on regular basis. Does not use any drugs. Review of Systems: All systems reviewed, they were negative except for mentioned in HPI. Physical Examination: Vital Signs: Reviewed. Head and Neck: Pupils are equal, reactive to light. Intact eye movements. No JVD. No cervical lym phadenopathy. Neck: Supple. Mild JVD elevation. Thyroid is not enlarged. Lungs: Crackles in bases. No accessory muscle use. No muscle obstruction. Heart: Regular rate and rhythm. No extra sounds. Abdomen: Soft, nontender. Bowel sounds positive. No organomegaly. No masses or hernia. No rigidi ty or rebound. Extremities: 2+ pitting edema. No clubbing, cyanosis. Intact pulses. Skin: No rashes. Neuro: Alert, awake, and oriented x3. No acute focal deficits appreciated. Investigations: Hemoglobin 6.1, BUN is 19, creatinine 0.7. Troponin is 21. NT-proBNP 187. The zan st CTA showed pulmonary edema. Assessment And Recommendation: Acute new-onset congestive heart failure, could be high output conges tive heart failure due to severe anemia. Recommend to transfuse for hemoglobin level of 9 and workup for his anemia and please obtain an echocardiogram. Further workup will be recommended based on the ejection fraction and wall motion. Trend 1 more dose of the troponin and continue Lasix 40 mg IV q. 12 hours. Thank you for the consult. /MODL Voice ID: [id number] Report ID: [id number]
[2021-11-22 03:56] LABS: Absolute Lymphocytes (CBC) 1.4 K/uL (0.7-4.9); Hematocrit 35.5 % (39.6-49.0); Lymphocytes % 18.7 % (15.3-44.8); MPV 10.8 fL (7.6-11.3); RBC Red Blood Cell Count 3.76 M/uL (4.33-5.43)
[2021-11-22 04:14] LABS: Potassium 3.8 mmol/L (3.5-5.1)
[2021-11-22 04:15] LABS: Albumin 2.7 g/dL (3.4-5.0); Bilirubin Total 0.3 mg/dL (0.2-1.0); Protein, Total 6.8 g/dL (6.4-8.2); Thyroid Stimulating Hormone 2.46 uIU/mL (0.360-3.740)
[2021-11-22] MEDS ORDERED: POTASSIUM CL SA 10 MEQ TAB PO ONE (06:00)
--- NOTE | 2021-11-22 06:29 | P.PN ---
Date of Service: 11/22/21 Subjective: Patient reports feeling better today, more energy/strength, breathing more comfortably Oxygen saturation no lowmid 90s on room air Denies any new symptoms, no new pains Tolerated 2 unit PRBCs transfused yesterday ROS: 10 point ROS as noted above, otherwise negative Physical exam General: Alert, In no apparent distress, Oriented x3 HEENT: Sclerae nonicteric Respiratory: Crackles/rales (bilaterally at bases), mildly labored respirations on room air Cardiovascular: Edema (2+ b/l lower extremity edema R>L) Gastrointestinal: Soft and benign, Non-distended, No tenderness Musculoskeletal: No erythema, No tenderness Integumentary: No rashes, No significant lesion, R 4th toe amputation site healed well Neurological: Normal speech, Normal strength at 5/5 x4 extr, Normal affect Problem List Chest Pain Dyspnea with lower extremity edema acute CHF exacerbation, suspect high output CHF secondary to anemia Anemia, iron deficiency NIDDM2 s/p R 4th toe amputation ~2 months ago HTN improved in ED with lasix concern for new onset CHF pt with anemia as well, likely chronic. denies any bleeding, denies prior history Iron deficient 2 units PRBC given on 11/21, hemoglobin responded appropriately Cardiology consulted Echo to be done today Continue IV 40 mg Lasix twice daily Chest x-ray this morning with some slight worsening of pulmonary opacities Possible high-output heart failure secondary to anemia VTE: lovenox Code: full Dispo: anticipate dc home in 1-2 days Time Spent Managing Pts Care (In Minutes): 35
--- NOTE | 2021-11-22 06:58 | RAD REPORT ---
EXAM DESCRIPTION: RAD - Chest Single View - 11/22/2021 6:33 am CLINICAL HISTORY: Pneumonia, edema COMPARISON: CT chest November 21, portable chest November 21 TECHNIQUE: AP portable chest image was obtained 11/22/2021 6:33 am . FINDINGS: Lung volumes are low, decreased slightly from the November 21 chest film. Under penetrated technique accentuate the chest findings. Bilateral upper lobe airspace opacification remains. Right lower lung field opacification has worsene d even when adjusting for respiration and technique differences. Cardiomegaly remains with vascular engorgement. Trachea is midline. No pneumothorax or enlarging ple ural effusion. No acute bony abnormality seen. No acute aortic findings suspected. IMPRESSION: Worsening pneumonia and/or pulmonary edema findings in the right lower lung field. Bilat eral upper lobe disease stable. Stable cardiomegaly and vascular engorgement.
[2021-11-22] MEDS: INSULIN -REGULAR HUMAN 50 UNIT/0.5 ML ML SQ SCH ×4 (07:30→21:00)
[2021-11-22] MEDS ORDERED: FUROSEMIDE 40 MG/4 ML VIAL IV SCH (09:00)
[2021-11-22] MEDS: FUROSEMIDE 40 MG/4 ML VIAL IV SCH ×2 (10:02→16:30)
[2021-11-22] MEDS: ENOXAPARIN 40 MG/0.4 ML SQ SCH (10:03)
[2021-11-22] MEDS: AMLODIPINE 10 MG TAB PO SCH (10:03)
--- NOTE | 2021-11-22 10:20 | EKG ---
Test Date: 2021-11-21 Test Time: 08:33:11 Automatic [employer] Tester: MAGNOLIA MEASUREMENT RESULTS: Intervals: Rate: 93 NJ: 150 QRSD: 86 QT: 358 QTc: 445 Souris: P: 47 NJ: 150 QRS: 26 T: 30 INTERPRETIVE STATEMENTS: Normal sinus rhythm Normal ECG No previous ECG available for comparison Electronically Signed On 11-22-21 10:14:53 THERMODYNAMICS ENGINEER by Joshua John
[2021-11-22] MEDS ORDERED: VANCOMYCIN 2.5 GM in NA CHLORIDE 0.9% 500 ML IVPB ONE (16:00)
[2021-11-22] MEDS: METOPROLOL TAR 25 MG TAB PO SCH (16:50)
[2021-11-22 17:41] LABS: Urine Appearance CLEAR (Clear); Urine Bilirubin NEGATIVE (Negative); Urine Blood 1+ (Negative); Urine Color YELLOW (Yellow); Urine Glucose TRACE (Negative); Urine Protein 3+ (Negative); Urine pH 6.5 (5.0-7.0)
[2021-11-22 17:53] LABS: Urine Microscopic Reflex ORDER UMIC
[2021-11-22 18:34] LABS: Urine Bacteria <20 /HPF (NONE SEEN)
[2021-11-23 04:12] LABS: Absolute Lymphocytes (CBC) 1.7 K/uL (0.7-4.9); Lymphocytes % 22.1 % (15.3-44.8); MPV 10.1 fL (7.6-11.3); RBC Red Blood Cell Count 3.62 M/uL (4.33-5.43)
[2021-11-23 04:31] LABS: C-Reactive Protein 31.3 mg/L (<3.00); Potassium 3.7 mmol/L (3.5-5.1)
[2021-11-23] MEDS: METOPROLOL TAR 25 MG TAB PO SCH (05:59)
--- NOTE | 2021-11-23 06:27 | P.PN ---
Date of Service: 11/23/21 Subjective: Continues with improvement Reports feeling short of breath/could not catch her breath this morning when he woke up, but has improved as the morning is complaining Swelling improved ROS: 10 point ROS as noted above, otherwise negative Physical exam General: Alert, In no apparent distress, Oriented x3 HEENT: Sclerae nonicteric Respiratory: Crackles/rales (bilaterally at bases) on room air Cardiovascular: Edema (2+ b/l lower extremity edema R>L) Gastrointestinal: Soft and benign, Non-distended, No tenderness Musculoskeletal: No erythema, No tenderness Integumentary: No rashes, No significant lesion, R 4th toe amputation site healed well Problem List acute CHF exacerbation, suspect high output CHF secondary to anemia Diastolic CHF, new diagnosis Anemia, iron deficiency NIDDM2 s/p R 4th toe amputation ~2 months ago HTN Cardiology consulted, echocardiogram done 11/22, diastolic dysfunction, no wall motion abnormality pt with anemia as well, likely chronic. denies any bleeding, denies prior history Iron deficient 2 units PRBC given on 11/21, hemoglobin responded appropriately, stable Continue IV 40 mg Lasix twice daily Chest x-ray this morning with slight improvement in aeration Edema improving Possible high-output heart failure secondary to anemia Blood culture obtained in ED, growing gram-positive bacteria, suspect contamination. Patient does have history of recent amputation 2 months ago due to infected diabetic ulcer/osteomyelitis Repeat cultures pending. Discussed with ID, agree likely contaminant, DC antibiotics once cultures are negative VTE: lovenox Code: full Dispo: anticipate dc home tomorrow Time Spent Managing Pts Care (In Minutes): 35
[2021-11-23] MEDS: INSULIN -REGULAR HUMAN 50 UNIT/0.5 ML ML SQ SCH ×4 (07:30→21:00)
[2021-11-23] MEDS ORDERED: POTASSIUM CL SA 10 MEQ TAB PO ONE (09:00)
[2021-11-23] MEDS: ENOXAPARIN 40 MG/0.4 ML SQ SCH (09:02)
[2021-11-23] MEDS: FUROSEMIDE 40 MG/4 ML VIAL IV SCH ×2 (09:03→17:01)
[2021-11-23] MEDS: AMLODIPINE 10 MG TAB PO SCH (09:04)
[2021-11-23] MEDS: VANCOMYCIN 2 GM in NA CHLORIDE 0.9% 500 ML IVPB SCH (09:05)
--- NOTE | 2021-11-23 11:25 | P.CNS ---
Date of Consult: 11/23/21 Chief Complaint: new CHF, anemia History of Present Illness: The patient is a 56-year-old male with a past medical history of hypertension, diabetes, and recent right fourth toe amputation secondary to osteomyelitis who presented to the emergency department secondary to dyspnea and bilateral lower extremity edema. He reported some chest discomfort associated with physical activity coughing and deep inspiration. Patient denies recent illness sick contacts nausea vomiting fever or recent COVID-19 infection. In ED chest x-ray concerning for possible pneumonia versus pulmonary edema, chest CT favor pulmonary edema over over pneumonia. Echocardiogram pending. Patient was also severely anemic in the ED, received 2 unit units of blood, hemoglobin now stabilized. He was given IV Lasix with some improvement in his respirations. Infectious diseases been consulted due to positive blood cultures. Blood cultures obtained on 11/21 grew coagulase-negative staph in 1 out of 4 bottles with repeat pending. Patient empirically placed on vancomycin. Positive blood cultures likely contamination, will discontinue antibiotics if repeat cultures are negative. Patient currently denies nausea/vomiting/diarrhea/shortness of breath/ chest pain. Aerating well on room air. Allergies No Known Allergies Allergy (Verified 11/21/21 15:52) Home Medications: Amlodipine [Norvasc] 10 mg PO DAILY 11/21/21 Metformin HCl [Glucophage] 850 mg PO DAILY 11/21/21 - Past Medical/Surgical History -: NIDDM2 -: HTN -: R toe amputation - Family History Father Medical History: Heart disease (~65 with [place]) - Social History Alcohol use: Yes Place of Residence: Home Review of Systems 10-point ROS is otherwise unremarkable Physical Examination Temp Pulse Resp BP Pulse Ox 97.8 F 72 20 162/97 H 97 11/23/21 08:00 11/23/21 09:04 11/23/21 08:00 11/23/21 09:04 11/23/21 08:00 General: Alert, Obese HEENT: Atraumatic, Normocephalic Neck: 2+ carotid pulse no bruit Respiratory: Clear to auscultation bilaterally, Normal air movement Cardiovascular: No murmurs, Other (lower extremity edema 1+) Gastrointestinal: Normal bowel sounds, Hypoactive, Soft and benign, Non- distended Musculoskeletal: No clubbing, No contractures Integumentary: Other (Right fourth area is clean dry and intact with no clinical signs of infection) Conclusions/Impression: Antibiotics Vancomycin: 11/22current Assessment/plan Bacteremia Blood cultures obtained on 11/21 grew coagulase-negative staph in 1 out of 4 bottles, repeat pending. Likely contamination. No clear source of infection, patient hemodynamically stable without septic presentation. If repeat blood cultures are negative recommend discontinuing antibiotics Pulmonary edema Chest CT findings favor pulmonary edema versus pneumonia. Echocardiogram pending. Patient on IV Lasix, bilateral lower extremity edema improving. Anemia Patient received 2 units of blood, hemoglobin responded. Continue to monitor closely Diabetes Hemoglobin A1c 7.9%, continue SSI Medical management per primary team Plan of care discussed with Dr. Eagle Thank you for consultation
--- NOTE | 2021-11-23 13:03 | RAD REPORT ---
EXAM DESCRIPTION: RAD - Chest Single View - 11/23/2021 12:32 pm CLINICAL HISTORY: f/u pulm edema COMPARISON: Chest Single View dated 11/22/2021; Chest Single View dated 11/21/2021; CHEST PA AND LAT 2 VIEW dated 06/28/2009 FINDINGS: Lines: None. Lungs: Improved aeration of the lungs compared with 11/22/2021. There is still diffuse prominence of the pulmonary interstitium. Pleural: No significant pleural effusions or pneumothorax. Cardiac: Mild cardiomegaly. Bones: No acute fractures. Other: IMPRESSION: Residual interstitial prominence consistent with edema though aeration has improved sinc e 11/22/2021.
--- NOTE | 2021-11-23 13:39 | ECHO ---
HEIGHT: 5 ft 5 in WEIGHT: 230 lb 0 oz DATE OF STUDY: 11/22/[address]: Joshua John MD 2-DIMENSIONAL: YES M.MODE: YES DOPPLER: YES COLOR FLOW: YES TDS: NO PORTABLE: NO DEFINITY: NO BUBBLE STUDY: NO DIAGNOSIS: CHEST PAIN CARDIAC HISTORY: CATHERIZATION: SURGERY: PROSTHETIC VALVE: PACEMAKER: MEASUREMENTS (cm) DIASTOLIC (NORMALS) SYSTOLIC (NORMALS) IVSd 1.4 (0.6-1.2) LA Diam 3.9 (1.9-4.0) LVEF 53% LVIDd 4.2 (3.5-5.7) LVIDs 3.1 (2.0-3.5) %FS 27% LVPWd 1.5 (0.6-1.2) Ao Diam 3.2 (2.0-3.7) 2 DIMENSIONAL ASSESSMENT: RIGHT ATRIUM: NORMAL LEFT ATRIUM: NORMAL RIGHT VENTRICLE: NORMAL LEFT VENTRICLE: LEFT VENTRICULAR HYPERTROPHY TRICUSPID VALVE: NORMAL MITRAL VALVE: MITRAL ANNULAR CALCIFICATION PULMONIC VALVE: NORMAL AORTIC VALVE: NORMAL PERICARDIAL EFFUSION: NONE AORTIC ROOT: NORMAL LEFT VENTRICULAR WALL MOTION: NORMAL. DOPPLER/COLOR FLOW: MILD MITRAL AND TRICUSPID REGURGITATION. COMMENTS: MITRAL ANNULAR CALCIFICATION. MILD TRICUSPID AND MITRAL REGURGITATION. NORMAL EJECTION FRACTION. NO WALL MOTION ABNORMALITY. LEFT VENTRICULAR HYPERTROPHY. NO EFFUSION. TECHNOLOGIST: ADAL DUMONT
[2021-11-23] MEDS ORDERED: lisinopriL 20 MG TAB PO ONE (17:00)
[2021-11-23 19:46] VITALS: O2SAT 96
[2021-11-23] MEDS: carvediloL 6.25 MG TAB PO SCH (21:18)
[2021-11-24] MEDS: VANCOMYCIN 2 GM in NA CHLORIDE 0.9% 500 ML IVPB SCH (05:40)
[2021-11-24] MEDS: INSULIN -REGULAR HUMAN 50 UNIT/0.5 ML ML SQ SCH (07:30)
[2021-11-24 08:40] LABS: Potassium 3.6 mmol/L (3.5-5.1)
[2021-11-24 08:43] VITALS: BP 189/89; TEMP 97.7
[2021-11-24] MEDS ORDERED: lisinopriL 20 MG TAB PO SCH (09:00)
[2021-11-24] MEDS: carvediloL 6.25 MG TAB PO SCH (09:13)
[2021-11-24] MEDS: FUROSEMIDE 40 MG/4 ML VIAL IV SCH (09:14)
[2021-11-24] MEDS: ENOXAPARIN 40 MG/0.4 ML SQ SCH (09:14)
[2021-11-24] MEDS: AMLODIPINE 10 MG TAB PO SCH (09:14)
--- NOTE | 2021-11-24 20:52 | P.DS ---
Admission Date: 11/21/21 Discharge Date: 11/24/21 Disposition: ROUTINE DISCHARGE Discharge Condition: GOOD Reason for Admission: new CHF, anemia Consultations: Cardiology - Dr. Valencia / [facility] ID - Dr. Eagle Procedures: Problem List acute diastolic CHF exacerbation, new diagnosis possible high output CHF secondary to anemia Anemia, iron deficiency NIDDM2 s/p R 4th toe amputation ~2 months ago HTN Brief History of Present Illness: 56yo M, PMH: HTN, NIDDM2 presents to ED due to 3 days of progressively worsening dyspnea and bilateral l ower extremity edema. Patient reports having some chest discomfort associated with physical activity, coughing, deep inspiration. Patient denies any recent illness, no nausea/vomiting, no fever, no recent sick contacts. In the ED, CXR concerning for possible pneumonia versus pulmonary edema. CT chest negative for PE, and more consistent with pulmonary edema. He was given IV Lasix and reported some improvement in his respirations. He states he had his right toe amputated 2 months ago, and at that time was placed on pills for diabetes. It was the only recent change in any of his medications. He denies any hailey bleeding, denies any blood in his urine or stool. Denies any prior history of anemia. ER physician ordered 2 units of blood and Lasix for the patient, requests admission for further evaluation. Hospital Course: Patient was found to be in acute congestive heart failure and anemic with hemoglobin down to 6. He had improvement of symptoms with IV lasix and received 2 units of blood. His hemoglobin remained stable. No evidence of bleed. Labwork consistent with iron deficiency anemia. Cardiology consulted, echocardiogram revealed some diastolic dysfunction and LVH, likely secondary to uncontrolled hypertension. He is discharged with new prescriptions for iron, lasix, lisinopril, and carvedilol. To take in addition to his amlodipine. He had better control of his blood pressure and was breathing comfortably on room air on day of discharge. Recommend follow up with PCP within 1 week Follow up with Cardiology in ~2-3 weeks. Recommend follow up with a GI doctor for EGD / colonoscopy to further investigate his anemia. Blood cultures obtained in ED grew 1/4 gram+ bacteria. Discussed with ID due to recent amputation. Agreed this was contaminant. Repeat cultures were negative x 24hrs. Vital Signs/Physical Exam: Temp Pulse Resp BP Pulse Ox 97.7 F 82 18 189/89 H 95 02/17/22 08:00 11/24/21 09:14 11/24/21 08:00 11/24/21 09:14 11/24/21 08:00 Physical exam General: Alert, In no apparent distress, Oriented x3 HEENT: Sclerae nonicteric Respiratory: mild crackles at bases bilaterally Cardiovascular: Edema (1+ b/l lower extremity edema R>L) Gastrointestinal: Soft and benign, Non-distended, No tenderness Musculoskeletal: No erythema, No tenderness Integumentary: No rashes, No significant lesion, R 4th toe amputation site healed well Laboratory Data at Discharge: WBC 7.60 K/uL (4.3-10.9) 11/23/21 03:38 Hgb 11.6 g/dL (13.6-17.9) L 11/23/21 03:38 Hct 34.0 % (39.6-49.0) L 11/23/21 03:38 Plt Count 230 K/uL (152-406) 11/23/21 03:38 PT 11.3 SECONDS (9.5-12.5) 11/21/21 09:10 INR 0.98 11/21/21 09:10 APTT 33.3 SECONDS (24.3-36.9) 11/21/21 09:10 Sodium 140 mmol/L (136-145) 11/24/21 08:00 Potassium 3.6 mmol/L (3.5-5.1) 11/24/21 08:00 BUN 20 mg/dL (7-18) H 11/24/21 08:00 Creatinine 1.07 mg/dL (0.55-1.3) 11/24/21 08:00 Glucose 153 mg/dL (74-106) H 11/24/21 08:00 Magnesium 2.0 mg/dL (1.8-2.4) 11/22/21 02:58 Total Bilirubin 0.3 mg/dL (0.2-1.0) 11/22/21 02:58 AST 22 U/L (15-37) 11/22/21 02:58 ALT 26 U/L (12-78) 11/22/21 02:58 Alkaline Phosphatase 103 U/L (45-117) 11/22/21 02:58 Home Medications: Amlodipine [Norvasc*] 10 mg PO DAILY 11/21/21 Metformin HCl [Glucophage*] 850 mg PO DAILY 11/21/21 Ferrous Sulfate [Iron] 325 mg PO DAILY 30 Days #30 tablet 11/24/21 Furosemide [Lasix] 40 mg PO DAILY 30 Days #30 tablet 11/24/21 carvediloL [Coreg*] 6.25 mg PO BID 30 Days #60 tab 11/24/21 lisinopriL [Prinivil*] 20 mg PO DAILY 30 Days #30 tab 11/24/21 New Medications: carvediloL [Coreg*] 6.25 mg PO BID 30 Days #60 tab Ferrous Sulfate [Iron] 325 mg PO DAILY 30 Days #30 tablet Furosemide [Lasix] 40 mg PO DAILY 30 Days #30 tablet lisinopriL [Prinivil*] 20 mg PO DAILY 30 Days #30 tab Physician Discharge Instructions: Patient was found to be in acute congestive heart failure and anemic with hemoglobin down to 6. He had improvement of symptoms with IV lasix and received 2 units of blood. His hemoglobin remained stable. No evidence of bleed. Labwork consistent with iron deficiency anemia. Cardiology consulted, echocardiogram revealed some diastolic dysfunction and LVH, likely secondary to uncontrolled hypertension. He is discharged with new prescriptions for iron, lasix, lisinopril, and carvedilol. To take in addition to his amlodipine. He had better control of his blood pressure and was breathing comfortably on room air on day of discharge. Recommend follow up with PCP within 1 week Follow up with Cardiology in ~2-3 weeks. Recommend follow up with a GI doctor for EGD / colonoscopy to further investigate his anemia. Diet: ADA Activity: Ad cresencio Time spent managing pt's care (in minutes): 45
--- NOTE | 2021-11-25 14:15 | PN ---
Date of Progress Note: 11/22/2021 Mr. Bergeron is a 56-year-old, was seen by Dr. Valencia as a consult for acute new onset congestive hear t failure and severe anemia. Hemoglobin is finally at 9. He is getting IV Lasix and has improved dr amatically. Echocardiogram showed an ejection fraction of 53% with left ventricular hypertrophy. Ej ection fraction was normal. He had some mild mitral annular calcification, but no wall motion abnorm alities. There is an old diagnosis that he has congestive heart failure secondary to high cardiac ou tput from severe anemia. He can follow up with his primary physician when he goes home and having an extensive anemia workup. Otherwise, no cardiac recommendations at this point. PAUL/MELISSA Voice ID: [id number] Report ID: [id number]
== END 2021-11-24 10:40 | disposition home health service (06) | DRG 291 ==
LOC: ER 08:19 → ERHOLD 13:03 → 2ND 14:44
PROVIDERS: ADMIT Hospitalist; ATTEND Hospitalist
PROC: 30233N1 Transfusion of Nonautologous Red Blood Cells into Peripheral Vein, Percutaneous Approach (ICD-10-PCS; principal; 2021-11-21)
DX: I11.0 Hypertensive heart disease with heart failure (principal); I50.31 Acute diastolic (congestive) heart failure; I50.83 High output heart failure; D50.9 Iron deficiency anemia, unspecified; E11.9 Type 2 diabetes mellitus without complications; Z89.421 Acquired absence of other right toe(s); Z20.822 Contact with and (suspected) exposure to COVID-19
CPT/HCPCS: 0240U; 36415; 71045; 71275; 80048; 80053; 80202; 81003; 81015; 82607; 82728; 82746; 82947; 83036; 83540; 83735; 83880; 84145; 84439; 84443; 84466; 84484; 85025; 85044; 85379; 85610; 85730; 86140; 86850; 86900; 86901; 87040; 87077; 87186; 87205; 93005; 93306; 94760; 96374; 99284; J1650; J1940; J3370; J7040; J7050; P9016; Q9967

== ENCOUNTER 2023-12-17 13:29 | Inpatient (IN) | payer OTHER ==
--- OUTSIDE RECORDS SUMMARY | 2023-12-17 13:41 | XMS REPORT | Continuity of Care Document ---
Author Name Unknown Address [address] [facility] [address] [place] [address] [facility] thconnect Address [address] [facility] [address] [place] [address] Care Team Providers Care Marketing Programs Manager Name Role Phone [place] Desmond OSBORNE Primary Care Physician [phone] QUINN GAVIRIA Attending Clinician Unavail able BEATA CHEN Attending Clinician Unav MARQUES [place] Attending Clinician Unavailable LAB90 Attending Clinician Unavailable Jewel BORDEN, Rebecca Mott Attending Clinician [phone] JOAN FAGAN Attending Clinician Unavailabl evelyn Novoa MD, Micah A Attending Clinician [phone] Jaz Walker MD Attending Clinician [phone] Gianluca Araujo MD Attending Clinician [phone] Joan Fagan MD Attending Clinician [phone] Diego Rogers DO Attending Clinician [phone] TRAVIS ASHTON Attending Clinician Unavailable Aurora Goins LVN Attending Clinician [phone] Wong López Attending Clinician [phone] Gm De Los Santos MD Attending Clinician [phone] Chandler Villatoro MD Attending Clinician Travis GUSTAFSON, Nomi Nation Attending Clinician JOAN FAGAN Admitting Clinician Lisy Fagan MD, Joan Admitting Clinician [phone] Gm De Los Santos MD Admitting Clinician [phone] Payers Payer Name Policy Type Policy Number Effective Date Expirati on Date Source [employer]ET[employer] MP [facility] O [employer] 94 ON 9 [id number] 2023 00:00:00 Problems Condition Name Condition Details Condition Category Status Onset Date Resolution Date Last Treatment Date Treating Clinician Comments Source Chronic diastolic CHF (congestiv e heart failure) (multi HCC) Chronic diastolic CHF (congestiv e heart failure) (multi HCC) Disease Active 2 00:00: 00 Sonia Searacelisold - Externa l Other specified anemias Other specified anemias Disease Active 2- 00:00: 00 Sonia Seybold - Externa l Type 2 diabetes 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, without long-term current use of insulin (multi HCC) Type 2 diabetes 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, without long-term current use of insulin (multi HCC) Disease Active 6-12 00:00: 00 Sonia Seybold - Externa l Shortness of breath Shortness of breath Disease Active 4-26 00:00: 00 [facility] DM type 2 with diabetic mixed hyperlipid emia (multi HCC) DM type 2 with diabetic mixed hyperlipid emia (multi HCC) Disease Active 12-06 00:00: 00 Sonia Seybold - Externa l Primary hypertensi on Primary hypertensi on Disease Active 12-06 00:00: 00 Sonia Seybold - Externa l Chronic cough Chronic cough Disease Active 12-06 00:00: 00 Sonia Seybold - Externa l Edema, lower extremity Edema, lower extremity Disease Active 12-06 00:00: 00 Sonia Seybold - Externa l Class 2 severe obesity due to excess calories with serious comorbidit y and body mass index (BMI) of 39.0 to 39.9 in adult Class 2 severe obesity due to excess calories with serious comorbidit y and body mass index (BMI) of 39.0 to 39.9 in adult Disease Active 3- 00:00: 00 Sonia Orr - Externa l Obesity (BMI 30-39.9) Obesity (BMI 30-39.9) Disease Active 07-04 00:00: 00 [facility] Cellulitis Cellulitis Disease Active 07-03 00:00: 00 [facility] Allergies, Adverse Reactions, Alerts Allergy Name Allergy Type Status Severity Reaction(s) Onset Date Inactive Date Treating Clinician Comments Source NO KNOWN ALLERGIE S Drug Class Active [facility] Social History Social Habit Start Date Stop Date Quantity Comments Source History SDOH Social Connections Get Together [facility] History SDOH Social Connections Temple [facility] History SDOH Social Connections Membership [facility] History SDOH Social Connections Meetings [facility] Gender identity Lorenza Orr - External Sexual orientation Wong Orr - External Alcohol intake 2023-11-30 00:00:00 2023-11-30 00:00:00 Current drinker of alcohol (finding) Sonia Orr - External History of Social function 2023-06-25 00:00:00 2023-06-25 00:00:00 Sonia Orr - External History SDOH Alcohol Frequency 2023-01-31 00:00:00 2023-01-31 00:00:00 5 [facility] History SDOH Alcohol Std Drinks 2023-01-31 00:00:00 2023-01-31 00:00:00 1 [facility] History SDOH Alcohol Binge 2023-01-31 00:00:00 2023-01-31 00:00:00 1 [facility] History SDOH Social Connections Phone 2023-01-31 00:00:00 2023-01-31 00:00:00 3 [facility] History SDOH Social Connections Living 2023-01-31 00:00:00 2023-01-31 00:00:00 3 [facility] History SDOH Financial 2023-01-31 00:00:00 2023-01-31 00:00:00 2 [facility] History SDOH Food Worry 2023-01-31 00:00:00 2023-01-31 00:00:00 3 [facility] History SDOH Food Scarcity 2023-01-31 00:00:00 2023-01-31 00:00:00 3 [facility] History SDOH Transport Med 2023-01-31 00:00:00 2023-01-31 00:00:00 2 [facility] History SDOH Transport Non-Med 2023-01-31 00:00:00 2023-01-31 00:00:00 2 [facility] History SDOH Housing Unable to Pay 2023-01-31 00:00:00 2023-01-31 00:00:00 1 [facility] History SDOH Housing Places Lived 2023-01-31 00:00:00 2023-01-31 00:00:00 1 [facility] History SDOH Housing Homeless Last Year 2023-01-31 00:00:00 2023-01-31 00:00:00 2 [facility] Exposure to SARS-CoV-2 (event) 2023-01-20 00:00:00 2023-01-30 18:08:00 Not sure [facility] Alcohol Comment 2022-12-06 00:00:00 2022-12-06 00:00:00 occasionally Sonia Orr - External Education - What is the highest level of school you have completed or the highest degree you have received? 2022-12-06 00:00:00 2022-12-06 00:00:00 High school graduate Sonia Orr - External Tobacco use and exposure 2021-07-03 00:00:00 2021-07-03 00:00:00 Smokeless tobacco non-user [facility] Sex Assigned At 1965 00:00:00 1965 00:00:00 Sonia Orr - External Smoking Status Start Date Stop Date Source Never smoked tobacco Sonia Orr - External Medications Ordered Medication Name Filled Medication Name Start Date Stop Date Current Medication? Ordering Clinician Indication Dosage Frequency Signature (SIG) Comments Components Source Benzonatate (Tessalon Perles) 100 MG oral Capsule 11-30 00:00: 00 Yes [id number] 100mg [id number] 3D Take 1 capsule (100 mg total) by mouth 3 times daily as needed for cough. Sonia cheatham Empaglifloz in (Jardiance) 10 MG oral Tablet 11-16 00:00: 00 Yes [id number] 10mg Take 1 tablet (10 mg total) by mouth daily. Sonia cheatham Amlodipine Besylate 10 MG oral Tablet 11-16 00:00: 00 Yes [id number] 10mg Take 1 tablet (10 mg total) by mouth daily. Sonia cheatham Furosemide (Lasix) 40 MG oral Tablet 11-16 00:00: 00 Yes [id number] 40mg Take 1 tablet (40 mg total) by mouth 2 times daily. Sonia cheatham Losartan Potassium (COZAAR) 100 MG oral Tablet 11-16 00:00: 00 Yes [id number] 100mg Take 1 tablet (100 mg total) by mouth daily. Sonia cheatham Atorvastati n Calcium 20 MG oral Tablet 11-16 00:00: 00 Yes [id number] 3 20mg Take 1 tablet (20 mg total) by mouth nightly. Sonia cheatham glipiZIDE 5 MG oral Tablet 11-16 00:00: 00 Yes [id number] 5mg Take 1 tablet (5 mg total) by mouth daily (before a meal). Sonia cheatham Blood Glucose Monitoring Suppl does not apply Kit 11-16 00:00: 00 Yes [id number] 1{each} Inject 1 each into the skin 2 times daily Check BS twice daily. Sonia cheatham Glucose Blood in vitro Strip 11-16 00:00: 00 Yes [id number] 1{each} 1 each by other route 2 times daily Check BS twice daily. Sonia cheatham Lancets 33G does not apply Misc 11-16 00:00: 00 Yes [id number] 1{each} 1 each by does not apply route 2 times daily Check BS twice daily. Sonia cheatham Empaglifloz in (Jardiance) 10 MG oral Tablet 11-16 00:00: 00 Yes [id number] 10mg Take 1 tablet (10 mg total) by mouth daily. Sonia cheatham Amlodipine Besylate 10 MG oral Tablet 11-16 00:00: 00 Yes [id number] 10mg Take 1 tablet (10 mg total) by mouth daily. Sonia cheatham Furosemide (Lasix) 40 MG oral Tablet 11-16 00:00: 00 Yes [id number] 40mg Take 1 tablet (40 mg total) by mouth 2 times daily. Sonia cheatham Losartan Potassium (COZAAR) 100 MG oral Tablet 11-16 00:00: 00 Yes [id number] 100mg Take 1 tablet (100 mg total) by mouth daily. Sonia cheatham Atorvastati n Calcium 20 MG oral Tablet 11-16 00:00: 00 Yes [id number] 3 20mg Take 1 tablet (20 mg total) by mouth nightly. Sonia cheatham glipiZIDE 5 MG oral Tablet 11-16 00:00: 00 Yes [id number] 5mg Take 1 tablet (5 mg total) by mouth daily (before a meal). Sonia cheatham Blood Glucose Monitoring Suppl does not apply Kit 11-16 00:00: 00 Yes [id number] 1{each} Inject 1 each into the skin 2 times daily Check BS twice daily. Sonia cheatham Glucose Blood in vitro Strip 11-16 00:00: 00 Yes [id number] 1{each} 1 each by other route 2 times daily Check BS twice daily. Sonia cheatham Lancets 33G does not apply Misc 11-16 00:00: 00 Yes [id number] 1{each} 1 each by does not apply route 2 times daily Check BS twice daily. Sonia cheatham Losartan Potassium (COZAAR) 100 MG oral Tablet 2022-10 00:00: 00 11-16 00:00 :00 No [id number] 100mg Take 1 tablet (100 mg total) by mouth daily. Sonia cheatham Amlodipine Besylate 10 MG oral Tablet 2022-10 1- 00:00: 00 11-16 00:00 :00 No [id number] 10mg TAKE 1 TABLET BY MOUTH EVERY DAY Sonia cheatham glipiZIDE 10 MG oral Tablet 2022-10 0- 00:00: 00 11-16 00:00 :00 No [id number] 3 TAKE 1 TABLET BY MOUTH IN THE MORNING AND IN THE EVENING BEFORE MEALS Sonia cheatham Januvia 100 MG oral Tablet 9-28 00:00: 00 11-16 00:00 :00 No [id number] 100mg TAKE 1 TABLET BY MOUTH EVERY DAY Sonia cheatham Furosemide (Lasix) 40 MG oral Tablet 7-10 00:00: 00 11-16 00:00 :00 No [id number] 40mg Take 1 tablet (40 mg total) by mouth 2 times daily Sonia cheatham Atorvastati n Calcium 20 MG oral Tablet 7-07 00:00: 00 11-16 00:00 :00 No [id number] 3 20mg Take 1 tablet (20 mg total) by mouth nightly Sonia cheatham Furosemide (Lasix) 40 MG oral Tablet 6-12 00:00: 00 Yes [id number] 40mg Take 1 tablet (40 mg total) by mouth 2 times daily Sonia cheatham chlorthalid one 25 mg tablet 02-10 00:00: 00 08-10 04:59 :00 No [id number] 25mg Take 1 tablet by mouth daily for 180 days. [facility] amLODIPine 10 mg tablet 02-09 15:20: 31 Yes 10mg Take 1 tablet by mouth daily. [facility] metFORMIN 1,000 mg tablet 02-09 15:20: 31 Yes 1000mg Take 1 tablet by mouth 2 (two) times daily with meals. [facility] glipiZIDE 10 mg tablet 02-09 15:20: 31 Yes 10mg Take 1 tablet by mouth daily. [facility] POTASSIUM-9 9 ORAL 02-09 15:20: 31 Yes 10meq Take 10 mEq by mouth. [facility] amLODIPine 10 mg tablet 02-09 15:20: 31 Yes 10mg Take 1 tablet by mouth daily. [facility] glipiZIDE 10 mg tablet 02-09 15:20: 31 Yes 10mg Take 1 tablet by mouth daily. [facility] amLODIPine 10 mg tablet 02-09 15:20: 31 Yes 10mg Take 1 tablet by mouth daily. [facility] glipiZIDE 10 mg tablet 02-09 15:20: 31 Yes 10mg Take 1 tablet by mouth daily. [facility] furosemide (LASIX) 20 mg tablet 02-09 13:03: 35 02-09 00:00 :00 No 20mg Take 1 tablet by mouth daily. [facility] losartan 100 mg tablet 02-09 13:03: 35 02-09 00:00 :00 No 100mg Take 1 tablet by mouth daily. [facility] furosemide (LASIX) injection 40 mg 02-09 01:00: 00 Yes 40mg 40 mg, Slow IV Push, Q12H, First dose [facility] Thuy 02/08/23 at 2000[facility] glipiZIDE 10 MG oral Tablet 02-09 00:00: 00 Yes [id number] 3 TAKE 1 TABLET BY MOUTH IN THE MORNING AND IN THE EVENING BEFORE MEALS Sonia cheatham furosemide 40 mg tablet 02-09 00:00: 00 08-09 04:59 :00 No [id number] 40mg Take 1 tablet by mouth every morning and evening for 180 days. [facility] atorvastati n 80 mg tablet 02-09 00:00: 00 08-09 04:59 :00 No [id number] 80mg Take 1 tablet by mouth at bedtime for 180 days. [facility] carvediloL 25 mg tablet 2022-0 5-05 00:00: 00 08-09 04:59 :00 No [id number] 25mg Take 1 tablet by mouth 2 (two) times daily with meals for 180 days. [facility] hydrALAZINE 100 mg tablet 2022-0 5-05 00:00: 00 08-09 04:59 :00 No [id number] 100mg Take 1 tablet by mouth 3 (three) times daily for 180 days. [facility] isosorbide dinitrate 40 mg tablet 2022-0 5-05 00:00: 00 08-09 04:59 :00 No [id number] 40mg Take 1 tablet by mouth 3 (three) times daily for 180 days. [facility] furosemide 40 mg tablet 2022-0 5-05 00:00: 00 08-09 04:59 :00 No [id number] 811075 40mg Take 1 tablet by mouth every morning and evening for 180 days. [facility] atorvastati n 80 mg tablet 2022-0 5-05 00:00: 00 08-09 04:59 :00 No [id number] 80mg Take 1 tablet by mouth at bedtime for 180 days. [facility] carvediloL 25 mg tablet 2022-0 5-05 00:00: 00 08-09 04:59 :00 No [id number] 25mg Take 1 tablet by mouth 2 (two) times daily with meals for 180 days. [facility] hydrALAZINE 100 mg tablet 2022-0 5-05 00:00: 00 08-09 04:59 :00 No [id number] 100mg Take 1 tablet by mouth 3 (three) times daily for 180 days. [facility] isosorbide dinitrate 40 mg tablet 2022-0 5-05 00:00: 00 08-09 04:59 :00 No [id number] 40mg Take 1 tablet by mouth 3 (three) times daily for 180 days. [facility] furosemide 40 mg tablet 2022-0 5-05 00:00: 00 08-09 04:59 :00 No [id number] 40mg Take 1 tablet by mouth every morning and evening for 180 days. [facility] atorvastati n 80 mg tablet 02-09 00:00: 00 08-09 04:59 :00 No [id number] 80mg Take 1 tablet by mouth at bedtime for 180 days. [facility] carvediloL 25 mg tablet 02-09 00:00: 00 08-09 04:59 :00 No [id number] 25mg Take 1 tablet by mouth 2 (two) times daily with meals for 180 days. [facility] hydrALAZINE 100 mg tablet 02-09 00:00: 00 08-09 04:59 :00 No [id number] 100mg Take 1 tablet by mouth 3 (three) times daily for 180 days. [facility] isosorbide dinitrate 40 mg tablet 02-09 00:00: 00 08-09 04:59 :00 No [id number] 40mg Take 1 tablet by mouth 3 (three) times daily for 180 days. [facility] hydroCHLORO thiazide 25 MG oral Tablet 02-09 00:00: 00 03-19 00:00 :00 No [id number] 25mg Take 1 tablet (25 mg total) by mouth daily Sonia cheatham chlorthalid one (HYGROTON) tablet 25 mg 02-08 14:00: 00 Yes 25mg 25 mg, Oral, DAILY, First dose on Sun02/08/23 at 0900, Until Discontinu ed, Routine [facility] heparin (porcine) injection 5,000 Units 02-08 13:00: 00 02-09 01:27 :00 No 5000U 5,000 Units, Subcutaneo us, Q12H, 2 doses, First dose (after last modificati on) on Sun02/08/23 at 0800, Last dose on Sun02/08/23 at 2000, Routine [facility] isosorbide dinitrate (ISORDIL) tablet 40 mg 02-07 17:00: 00 Yes 40mg 40 mg, Oral, TIDHOL, First dose (after last modificati on) on Sun02/07/23 at 1200, Until Discontinu ed, Routine [facility] HYDROcodone -acetaminop hen (NORCO 5) 5-325 mg tablet 1 tablet 02-07 02:00: 00 02-07 01:48 :00 No 1{tbl} 1 tablet, Oral, ONCE, 1 dose, On Sun02/06/23 at 2100, Routine [facility] hydrALAZINE (APRESOLINE ) tablet 100 mg 02-06 19:00: 00 Yes 100mg 100 mg, Oral, TID, First dose (after last modificati on) on Sun02/06/23 at 1400, Until Discontinu ed, Routine [facility] KCL (KLOR-CON M20) tablet 20 mEq 02-06 13:15: 00 02-06 14:49 :00 No 20meq 20 mEq, Oral, ONCE, 1 dose, On Sun02/06/23 at 0815, Routine [facility] regadenoson (LEXISCAN) injection 0.4 mg 02-05 19:30: 00 02-05 19:23 :00 No [id number] .4mg 0.4 mg, IV Push, ONCE, 1 dose, On Sun02/05/23 at 1430, Routine
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 approving Restricted medication : TYRELL PULIDO [facility] tc 99m-tetrofo smin (MYOVIEW) injection 40 millicurie 02-05 19:20: 00 02-05 19:20 :00 No [id number] 40mCi 40 millicurie , Intravenou s, ONCE, 1 dose, On Sun02/05/23 at 1445, Routine [facility] tc 99m-tetrofo smin (MYOVIEW) injection 15 millicurie 02-05 18:15: 00 02-05 18:15 :00 No [id number] 15mCi 15 millicurie , Intravenou s, ONCE, 1 dose, On Sun02/05/23 at 1315, Routine [facility] isosorbide dinitrate (ISORDIL) tablet 30 mg 02-05 17:00: 00 02-07 15:56 :10 No 30mg 30 mg, Oral, TIDHOL, First dose (after last modificati on) on Sun02/05/23 at 1200, Until Discontinu ed, Routine [facility] spironolact one (ALDACTONE) tablet 25 mg 02-05 14:00: 00 02-05 16:06 :18 No 25mg 25 mg, Oral, DAILY, First dose (after last modificati on) on Sun02/05/23 at 0900, Until Discontinu ed, Routine [facility] isosorbide dinitrate (ISORDIL) tablet 10 mg 02-04 16:00: 00 02-05 16:06 :12 No 10mg 10 mg, Oral, TIDHOL, First dose on Sun02/04/23 at 1100, Until Discontinu ed, Routine [facility] carvediloL (COREG) tablet 25 mg 02-04 13:00: 00 Yes 25mg 25 mg, Oral, BID MEALS, First dose (after last modificati on) on 02/04/23 at 0800, Until Discontinu ed, Routine [facility] carvediloL (COREG) tablet 12.5 mg 02-03 16:30: 00 02-04 12:40 :41 No 12.5mg 12.5 mg, Oral, BID MEALS, First dose on Sun02/03/23 at 1130, Until Discontinu ed, Routine [facility] hydrALAZINE (APRESOLINE ) tablet 75 mg 02-02 23:00: 00 02-06 16:11 :05 No 75mg 75 mg, Oral, Q6H, First dose (after last modificati on) on Sun02/02/23 at 1800, Until Discontinu ed, Routine [facility] sennosides- docusate sodium (SENOKOT-S) 8.6-50 mg per tablet 1 tablet 02-02 17:00: 00 Yes 1{tbl} 1 tablet, Oral, BID, First dose on Sun02/02/23 at 1200, Until Discontinu ed, Routine [facility] polyethylen e glycol 3350 powder 17 g 02-02 17:00: 00 Yes 17g 17 g, Oral, DAILY, First dose on Sun02/02/23 at 1200, Until Discontinu ed, Routine [facility] furosemide (LASIX) injection 80 mg 02-02 14:00: 00 02-06 14:32 :30 No 80mg 80 mg, IV Push, QAM+PM, First dose (after last modificati on) on Sun02/02/23 at 0900, Until Discontinu ed, JUAN [facility] spironolact one (ALDACTONE) tablet 50 mg 02-02 14:00: 00 02-04 15:48 :23 No 50mg 50 mg, Oral, DAILY, First dose (after last modificati on) on Sun02/02/23 at 0900, Until Discontinu ed, Routine [facility] perflutren lipid microsphere s (DEFINITY) injection 2 mL 02-01 17:15: 00 02-01 17:15 :00 No [id number] 2mL 2 mL, IV Push, ONCE, 1 dose, On Sun02/01/23 at 1215, Routine [facility] hydrALAZINE (APRESOLINE ) tablet 50 mg 02-01 17:00: 00 02-02 17:59 :19 No 50mg 50 mg, Oral, Q6H, First dose (after last modificati on) on Sun02/01/23 at 1200, Until Discontinu ed, Routine [facility] spironolact one (ALDACTONE) tablet 25 mg 02-01 14:00: 00 02-02 12:22 :23 No 25mg 25 mg, Oral, DAILY, First dose (after last modificati on) on Sun02/01/23 at 0900, Until Discontinu ed, Routine [facility] atorvastati n (LIPITOR) tablet 80 mg 02-01 02:00: 00 Yes 80mg 80 mg, Oral, QHS, First dose (after last modificati on) on Sun01/31/23 at 2100, Until Discontinu ed, Routine [facility] hydrALAZINE (APRESOLINE ) tablet 25 mg 01-31 20:00: 00 02-01 13:14 :59 No 25mg 25 mg, Oral, Q6H, First dose on Sun01/31/23 at 1500, Until Discontinu ed, Routine [facility] spironolact one (ALDACTONE) tablet 12.5 mg 01-31 18:45: 00 02-01 11:40 :54 No 12.5mg 12.5 mg, Oral, DAILY, First dose on Sun01/31/23 at 1345, Until Discontinu ed, Routine [facility] amLODIPine (NORVASC) tablet 10 mg 01-31 14:00: 00 Yes 10mg 10 mg, Oral, DAILY, First dose on Sun01/31/23 at 0900, Until Discontinu ed, Routine [facility] aspirin chewable tablet 81 mg 01-31 14:00: 00 02-07 18:08 :07 No 81mg 81 mg, Oral, DAILY, First dose on Sun01/31/23 at 0900, Until Discontinu ed, Routine [facility] furosemide (LASIX) injection 40 mg 01-31 14:00: 00 02-02 13:05 :42 No 40mg 40 mg, IV Push, QAM+PM, First dose (after last reorder) on Sun01/31/23 at 0900, Until Discontinu ed, JUAN [facility] Sliding Scale Insulin - Lispro (HumaLOG) + Fsbg Testing 01-31 13:00: 00 Yes Subcutaneo us, TID MEALS+HS, First dose on Sun01/31/23 at 0800, Until Discontinu ed, Routine [facility] heparin (porcine) injection 5,000 Units 01-31 13:00: 00 02-08 11:53 :28 No 5000U 5,000 Units, Subcutaneo us, Q12H, First dose on Sun01/31/23 at 0800, Until Discontinu ed, Routine [facility] dextrose 10% (D10W) bolus infusion 250 mL 01-31 06:12: 11 Yes 250mL 250 mL, IV Infusion, PRN - SEE INSTRUCTIO NS, Administer over 60 Minutes, Other, If blood glucose is < or = 70 mg/dL and patient is unable to swallow or has mental status changes, Starting on Sun01/31/23 at 0112
If blood glucose is < or = 70 mg/dL and patient is unable to swallow or has mental status changes (Give glucagon order if patient needs fluid restrictio n): IF IV access available: Dextrose 10%. 1. 125 mL (? bag) of D10W IV infusion - equivalent to 12.5 g dextrose 2. Blood glucose - draw blood glucose 15 minutes after D10W Administra tion. 3. If blood glucose is < 80 mg/dL, repeat.
[facility] glucagon (GLUCAGEN DIAGNOSTIC KIT) injection 1 mg 01-31 06:12: 08 Yes 1mg 1 mg, Intramuscu lar, PRN, Starting on Sun01/31/23 at 0112, Until Discontinu ed, JUAN, Blood Glucose < or = 70 mg/dL and patient is NPO, unable to swallow or has mental changes. [facility] acetaminoph en (TYLENOL) tablet 650 mg 01-31 05:09: 15 Yes 650mg 650 mg, Oral, Q6HPRN, Starting on Sun01/31/23 at 0009, Until Discontinu ed, Routine, Pain (scale 1-3) [facility] levoFLOXaci n in D5W (LEVAQUIN) 750 mg/150 mL Piggyback 750 mg 01-31 01:45: 00 01-31 03:42 :00 No 750mg 750 mg, IV Piggyback, ONCE, 1 dose, On Sun01/30/23 at 204, Administer over 90 Minutes, 150 mL
Reas on for Anti-Infec tive: Documented Infection< br>Documen eulalio Infection Site: Respirator y
Durat ion of Therapy: 7 days [facility] aspirin tablet 325 mg 01-31 00:30: 00 01-30 23:44 :00 No 325mg 325 mg, Oral, ONCE, 1 dose, On Sun01/30/23 at 1930, Routine [facility] nitroglycer in (NITROL) 2 % ointment 0.5 Inch 01-30 23:45: 00 01-31 00:05 :00 No .5[in_u s] 0.5 Inch, Transderma l (Apply To Skin), ONCE, 1 dose, On Sun01/30/23 at 1845, [facility] furosemide (LASIX) injection 40 mg 01-30 23:45: 00 01-30 23:45 :00 No 40mg 40 mg, IV Push, ONCE, 1 dose, On Sun01/30/23 at 1845, [facility] hydroCHLORO thiazide 25 MG oral Tablet 12-06 00:00: 00 Yes [id number] 25mg Take 1 tablet (25 mg total) by mouth daily Sonia cheatham Metformin HCl ER 500 MG oral TABLET SR 24 HR 12-06 00:00: 00 Yes [id number] 3 1000mg Take 2 tablets (1,000 mg total) by mouth 2 times daily Sonia cheatham glipiZIDE 10 MG oral Tablet 12-06 00:00: 00 Yes [id number] 3 10mg Take 1 tablet (10 mg total) by mouth in the morning and 1 tablet (10 mg total) in the evening. Take before meals. Sonia cheatham Losartan Potassium (COZAAR) 100 MG oral Tablet 12-06 00:00: 00 Yes [id number] 100mg Take 1 tablet (100 mg total) by mouth daily Sonia cheatham Amlodipine Besylate 10 MG oral Tablet 12-06 00:00: 00 Yes [id number] 10mg Take 1 tablet (10 mg total) by mouth daily Sonia cheatham Atorvastati n Calcium 20 MG oral Tablet 12-06 00:00: 00 Yes [id number] 3 20mg Take 1 tablet (20 mg total) by mouth daily Sonia cheatham Losartan Potassium (COZAAR) 100 MG oral Tablet 12-06 00:00: 00 Yes [id number] 100mg Take 1 tablet (100 mg total) by mouth daily Sonia cheatham Amlodipine Besylate 10 MG oral Tablet 12-06 00:00: 00 Yes [id number] 10mg Take 1 tablet (10 mg total) by mouth daily Sonia cheatham Atorvastati n Calcium 20 MG oral Tablet 12-06 00:00: 00 Yes [id number] 3 20mg Take 1 tablet (20 mg total) by mouth daily Sonia cheatham Metformin HCl ER 500 MG oral TABLET SR 24 HR 12-06 00:00: 00 03-19 00:00 :00 No [id number] 3 1000mg Take 2 tablets (1,000 mg total) by mouth 2 times daily Sonia cheatham Amlodipine Besylate 10 MG oral Tablet 2021-10 2 00:00: 00 12-06 00:00 :00 No 10mg Take 10 mg by mouth daily Sonia cheatham Atorvastati n Calcium 20 MG oral Tablet 2021-10 2- 00:00: 00 12-06 00:00 :00 No 20mg Take 20 mg by mouth daily Sonia cheatham glipiZIDE 10 MG oral Tablet 2021-10 2- 00:00: 00 12-06 00:00 :00 No TAKE 1 TABLET BY MOUTH TWICE DAILY 30 MINUTES BEFORE MEALS Sonia cheatham Losartan Potassium (COZAAR) 100 MG oral Tablet 2021-10 2-30 00:00: 00 12-06 00:00 :00 No 100mg Take 100 mg by mouth daily Sonia cheatham Metformin HCl ER 500 MG oral TABLET SR 24 HR 2021-10 2- 00:00: 00 12-06 00:00 :00 No 500mg Take 500 mg by mouth 2 times daily oSnia cheatham Dose Unknown - 00:00: 00 No Dose Unknown 06-12 00:00: 00 No 500 TAKE 1 TABLET BY MOUTH ONCE DAILY FOR 30 DAYS 0 - 00:00: 00 No 40 TAKE 1 TABLET BY MOUTH ONCE DAILY - 00:00: 00 No 10 TAKE 1 TABLET BY MOUTH ONCE DAILY FOR 30 DAYS 05-12 00:00: 00 No 40 TAKE 1 TABLET BY MOUTH ONCE DAILY 05-12 00:00: 00 No 10 TAKE 1 TABLET BY MOUTH ONCE DAILY 05-09 00:00: 00 No 10 Dose Unknown 05-09 00:00: 00 No 500 Dose Unknown 05-09 00:00: 00 No 500 TAKE 1 TABLET BY MOUTH ONCE DAILY 0 05-09 00:00: 00 No 10 Dose Unknown 05-09 00:00: 00 No 500 Dose Unknown 05-09 00:00: 00 No 500 TAKE 1 TABLET BY MOUTH TWICE DAILY WITH MEALS 0 04-17 00:00: 00 No 500 TAKE 1 TABLET BY MOUTH TWICE DAILY WITH MEALS 04-17 00:00: 00 No 500 Mupirocin (BACTROBAN) 2 % apply externally Ointment 03-25 00:00: 00 Yes 1% 1 % Sonia cheatham mupirocin 2 % topical ointment 03-25 00:00: 00 No 1% atorvastati n 10 mg tablet 03-25 00:00: 00 No 1mg amlodipine 10 mg tablet 03-25 00:00: 00 No 1mg Dose Unknown 03-25 00:00: 00 No TAKE 1 TABLET BY MOUTH ONCE DAILY 03-25 00:00: 00 No TAKE 1 TABLET BY MOUTH ONCE DAILY 03-25 00:00: 00 No TAKE 1 TABLET BY MOUTH TWICE DAILY WITH MEALS 03-25 00:00: 00 No TAKE 1 TABLET BY MOUTH TWICE DAILY BEFORE BREAKFAST AND BEFORE SUPPER 03-25 00:00: 00 No TAKE 1 CAPSULE BY MOUTH TWICE DAILY FOR 7 DAYS 03-25 00:00: 00 No mupirocin 2 % topical ointment 03-25 00:00: 00 No 1% atorvastati n 10 mg tablet 03-25 00:00: 00 No 1mg amlodipine 10 mg tablet 03-25 00:00: 00 No 1mg metformin 1,000 mg tablet 03-25 00:00: 00 No 1mg TAKE 1 TABLET BY MOUTH ONCE DAILY 03-25 00:00: 00 No TAKE 1 TABLET BY MOUTH ONCE DAILY 03-25 00:00: 00 No TAKE 1 TABLET BY MOUTH TWICE DAILY WITH MEALS 03-25 00:00: 00 No TAKE 1 TABLET BY MOUTH TWICE DAILY BEFORE BREAKFAST AND BEFORE SUPPER 03-25 00:00: 00 No TAKE 1 CAPSULE BY MOUTH TWICE DAILY FOR 7 DAYS 03-25 00:00: 00 No Mupirocin (BACTROBAN) 2 % apply externally Ointment 03-25 00:00: 00 11-16 00:00 :00 No 1% 1 % Sonia cheatham amlodipine 10 mg tablet 02-13 00:00: 00 No 1mg atorvastati n 10 mg tablet 02-13 00:00: 00 No 1mg Januvia 100 mg tablet 02-13 00:00: 00 No 1mg Dose Unknown 02-13 00:00: 00 No amlodipine 10 mg tablet 02-13 00:00: 00 No 1mg atorvastati n 10 mg tablet 02-13 00:00: 00 No 1mg Januvia 100 mg tablet 02-13 00:00: 00 No 1mg metformin 1,000 mg tablet 02-13 00:00: 00 No 1mg Dose Unknown 02-10 00:00: 00 No Dose Unknown 0 02-10 00:00: 00 No Dose Unknown 0 02-10 00:00: 00 No Dose Unknown 0 02-10 00:00: 00 No Dose Unknown 0 02-10 00:00: 00 No Dose Unknown 0 02-10 00:00: 00 No Dose Unknown 0 02-10 00:00: 00 No Dose Unknown 0 02-10 00:00: 00 No Blood Glucose Monitoring Suppl does not apply Kit 0 12-17 00:00: 00 Yes 1{each} 1 each Sonia Seybold - Externa l Sitagliptin Phosphate (Januvia) 100 MG oral Tablet 0 - 00:00: 00 Yes 1mg 1 mg Sonia Seybold - Externa l amlodipine 10 mg tablet 0 12-17 00:00: 00 No 1mg atorvastati n 10 mg tablet 0 12-17 00:00: 00 No 1mg Januvia 100 mg tablet 0 12-17 00:00: 00 No 1mg metformin 1,000 mg tablet 0 12-17 00:00: 00 No 1mg amlodipine 10 mg tablet 0 12-17 00:00: 00 No 1mg atorvastati n 10 mg tablet 0 12-17 00:00: 00 No 1mg Januvia 100 mg tablet 0 12-17 00:00: 00 No 1mg metformin 1,000 mg tablet 0 12-17 00:00: 00 No 1mg Blood Glucose Monitoring Suppl does not apply Kit 0 12-17 00:00: 00 11-16 00:00 :00 No 1{each} 1 each Sonia Seybold - Externa l Dose Unknown 0 3- 00:00: 00 No Januvia 25 mg tablet 0 3- 00:00: 00 No 1mg Dose Unknown 0 3- 00:00: 00 No Dose Unknown 0 3- 00:00: 00 No Dose Unknown 0 3- 00:00: 00 No Dose Unknown 0 3- 00:00: 00 No Dose Unknown 2022-0 3-11 00:00: 00 No Dose Unknown 2-0 3-11 00:00: 00 No Dose Unknown 2022-0 3-11 00:00: 00 No Januvia 25 mg tablet 2021-0 3-11 00:00: 00 No 1mg Dose Unknown 2021-0 3-11 00:00: 00 No metformin 850 mg tablet 2021-0 3-11 00:00: 00 No 1mg Dose Unknown 2021-0 3-11 00:00: 00 No Dose Unknown 2021-0 3-11 00:00: 00 No Dose Unknown 2021-0 3-11 00:00: 00 No Dose Unknown 2021-0 3-11 00:00: 00 No Dose Unknown 2021-0 2-10 00:00: 00 No Dose Unknown 2021-0 2-10 00:00: 00 No Dose Unknown 2021-0 2-10 00:00: 00 No Dose Unknown 2021-0 2-10 00:00: 00 No metformin 850 mg tablet 2021-0 1-24 00:00: 00 No 1mg amlodipine 10 mg tablet 2021-0 1-24 00:00: 00 No 1mg Dose Unknown 2021-0 1-24 00:00: 00 No amlodipine 10 mg tablet 2-0 1-24 00:00: 00 No 1mg Dose Unknown 2-0 1-24 00:00: 00 No Dose Unknown 2-0 1-24 00:00: 00 No Dose Unknown 2-0 1-24 00:00: 00 No Dose Unknown 2-0 1-24 00:00: 00 No amLODIPine 10 mg tablet 2020-10 0-02 00:00: 00 08-09 04:59 :00 No [id number] 10mg Take 1 tablet by mouth daily for 30 days. [facility] aspirin 81 mg chewable tablet 2020-10 0- 00:00: 00 08-09 04:59 :00 No [id number] 81mg Take 1 tablet by mouth daily for 30 days. [facility] lisinopriL 40 mg tablet 2020-10 0- 00:00: 00 08-09 04:59 :00 No [id number] 40mg Take 1 tablet by mouth daily for 30 days. [facility] amLODIPine 10 mg tablet 2020-10 0 00:00: 00 08-09 04:59 :00 No [id number] 10mg Take 1 tablet by mouth daily for 30 days. [facility] aspirin 81 mg chewable tablet 2020-10 0 00:00: 00 08-09 04:59 :00 No [id number] 81mg Take 1 tablet by mouth daily for 30 days. [facility] lisinopriL 40 mg tablet 2020-10 0 00:00: 00 08-09 04:59 :00 No [id number] 40mg Take 1 tablet by mouth daily for 30 days. [facility] amLODIPine 10 mg tablet 2020-10 0 00:00: 00 08-09 04:59 :00 No [id number] 10mg Take 1 tablet by mouth daily for 30 days. [facility] aspirin 81 mg chewable tablet 2020-10 0 00:00: 00 08-09 04:59 :00 No [id number] 81mg Take 1 tablet by mouth daily for 30 days. [facility] lisinopriL 40 mg tablet 2020-10 0 00:00: 00 08-09 04:59 :00 No [id number] 40mg Take 1 tablet by mouth daily for 30 days. [facility] amLODIPine (NORVASC) tablet 10 mg 2020-10 14:00: 00 Yes 10mg 10 mg, Oral, DAILY, First dose on Sun07/08/21 at 0900, Until Discontinu ed, Routine [facility] amLODIPine (NORVASC) tablet 10 mg 2020-10 14:00: 00 Yes 10mg 10 mg, Oral, DAILY, First dose on Sun07/08/21 at 0900, Until Discontinu ed, Routine [facility] Blood-Gluco se Meter (RELION ALL-IN-ONE METER) Kit 2020-10 00:00: 00 Yes [id number] Use as directed [facility] Insulin [place], Disposable, (RELION NEEDLES) 31 gauge x 1/4" Nd 2020-10 0- 00:00: 00 Yes [id number] Use as directed [facility] Blood-Gluco se Meter (RELION ALL-IN-ONE METER) Kit 2020-10 0- 00:00: 00 Yes [id number] Use as directed [facility] Insulin [place], Disposable, (RELION NEEDLES) 31 gauge x 1/4" Nd 2020-10 0- 00:00: 00 Yes [id number] Use as directed [facility] Blood-Gluco se Meter (RELION ALL-IN-ONE METER) Kit 2020-10 0- 00:00: 00 Yes [id number] Use as directed [facility] Insulin [place], Disposable, (RELION NEEDLES) 31 gauge x 1/4" Nd 2020-10 0- 00:00: 00 Yes [id number] Use as directed [facility] Blood-Gluco se Meter (RELION ALL-IN-ONE METER) Kit 2020-10 0- 00:00: 00 Yes [id number] Use as directed [facility] Insulin [place], Disposable, (RELION NEEDLES) 31 gauge x 1/4" Nd 2020-10 0- 00:00: 00 Yes [id number] Use as directed [facility] Blood-Gluco se Meter (RELION ALL-IN-ONE METER) Kit 2020-10 0- 00:00: 00 Yes [id number] Use as directed [facility] Insulin [place], Disposable, (RELION NEEDLES) 31 gauge x 1/4" Nd 2020-10 0- 00:00: 00 Yes [id number] Use as directed [facility] Blood-Gluco se Meter (RELION ALL-IN-ONE METER) Kit 2020-10 0- 00:00: 00 Yes [id number] Use as directed [facility] Insulin [place], Disposable, (RELION NEEDLES) 31 gauge x 1/4" Nd 2020-10 0 00:00: 00 Yes [id number] Use as directed [facility] atorvastati n 40 mg tablet 2020-10 0 00:00: 08-08 04:59 :00 No [id number] 40mg Take 1 tablet by mouth at bedtime for 30 days. [facility] glipiZIDE 10 mg tablet 2020-10 00:00: 08-08 04:59 :00 No [id number] 10mg Take 1 tablet by mouth 2 (two) times daily before breakfast and dinner for 30 days. [facility] insulin NPH and regular human 70-30 100 unit/mL (70-30) injection 2020-10 00:00: 00 08-08 04:59 :00 No [id number] 13U inject 13 Units under the skin every morning and evening for 30 days. [facility] metFORMIN 500 mg tablet 2020-10 00:00: 08-08 04:59 :00 No [id number] 500mg Take 1 tablet by mouth 2 (two) times daily with meals for 30 days. [facility] atorvastati n 40 mg tablet 2020-10 00:00: 00 08-08 04:59 :00 No [id number] 40mg Take 1 tablet by mouth at bedtime for 30 days. [facility] glipiZIDE 10 mg tablet 2020-10 00:00: 08-08 04:59 :00 No [id number] 10mg Take 1 tablet by mouth 2 (two) times daily before breakfast and dinner for 30 days. [facility] insulin NPH and regular human 70-30 100 unit/mL (70-30) injection 2020-10 00:00: 00 08-08 04:59 :00 No [id number] 13U inject 13 Units under the skin every morning and evening for 30 days. [facility] metFORMIN 500 mg tablet 2020-10 00:00: 00 08-08 04:59 :00 No [id number] 500mg Take 1 tablet by mouth 2 (two) times daily with meals for 30 days. [facility] atorvastati n 40 mg tablet 2020-10 0 00:00: 08-08 04:59 :00 No [id number] 40mg Take 1 tablet by mouth at bedtime for 30 days. [facility] glipiZIDE 10 mg tablet 2020-10 00:00: 08-08 04:59 :00 No [id number] 10mg Take 1 tablet by mouth 2 (two) times daily before breakfast and dinner for 30 days. [facility] insulin NPH and regular human 70-30 100 unit/mL (70-30) injection 2020-10 00:00: 00 08-08 04:59 :00 No [id number] 13U inject 13 Units under the skin every morning and evening for 30 days. [facility] metFORMIN 500 mg tablet 2020-10 00:00: 08-08 04:59 :00 No [id number] 500mg Take 1 tablet by mouth 2 (two) times daily with meals for 30 days. [facility] lactobacill us acidophilus 2020-10 00:00: 07-19 04:59 :00 No [id number] .5mg Take 1 tablet by mouth 2 (two) times daily for 10 days. [facility] lactobacill us acidophilus 2020-10 0 00:00: 07-19 04:59 :00 No [id number] .5mg Take 1 tablet by mouth 2 (two) times daily for 10 days. [facility] lactobacill us acidophilus 2020-10 0 00:00: 07-19 04:59 :00 No [id number] .5mg Take 1 tablet by mouth 2 (two) times daily for 10 days. [facility] amoxicillin 500 mg tablet 2020-10 0 00:00: 07-16 04:59 :00 No [id number] 500mg Take 1 tablet by mouth 2 (two) times daily for 7 days. [facility] amoxicillin 500 mg tablet 2020-10 0 00:00: 00 07-16 04:59 :00 No [id number] 500mg Take 1 tablet by mouth 2 (two) times daily for 7 days. [facility] amoxicillin 500 mg tablet 2020-10 0 00:00: 07-16 04:59 :00 No [id number] 500mg Take 1 tablet by mouth 2 (two) times daily for 7 days. [facility] HYDROcodone -acetaminop hen 5-325 mg tablet 2020-10 00:00: 00 07-14 04:59 :00 No [id number] 1{tbl} Take 1 tablet by mouth every 6 (six) hours as needed for Pain (scale 7-10) for up to 5 days. Indication s: acute pain [facility] HYDROcodone -acetaminop hen 5-325 mg tablet 2020-10 00:00: 00 07-14 04:59 :00 No [id number] 1{tbl} Take 1 tablet by mouth every 6 (six) hours as needed for Pain (scale 7-10) for up to 5 days. Indication s: acute pain [facility] HYDROcodone -acetaminop hen 5-325 mg tablet 2020-10 0 00:00: 00 07-14 04:59 :00 No [id number] 1{tbl} Take 1 tablet by mouth every 6 (six) hours as needed for Pain (scale 7-10) for up to 5 days. Indication s: acute pain [facility] lisinopriL (PRINIVIL,Z ESTRIL) tablet 40 mg 07-07 14:00: 00 Yes 40mg 40 mg, Oral, DAILY, First dose (after last modificati on) on Thuy 07/07/21 at 0900, Until Discontinu ed, Routine [facility] lisinopriL (PRINIVIL,Z ESTRIL) tablet 40 mg 07-07 14:00: 00 Yes 40mg 40 mg, Oral, DAILY, First dose (after last modificati on) on Thuy 07/07/21 at 0900, Until Discontinu ed, Routine [facility] lisinopriL (PRINIVIL,Z ESTRIL) tablet 40 mg 07-07 14:00: 00 Yes 40mg 40 mg, Oral, DAILY, First dose (after last modificati on) on Thuy 07/07/21 at 0900, Until Discontinu ed, Routine [facility] lactated ringers IV infusion 1,000 mL 07-07 13:45: 00 Yes 1000mL at 50 mL/hr, 1,000 mL, IV Infusion, CONTINUOUS , Starting on Thuy 07/07/21 at 0845, Until Discontinu ed, Routine, PACU [facility] lactated ringers IV infusion 1,000 mL 07-07 13:45: 00 Yes 1000mL at 50 mL/hr, 1,000 mL, IV Infusion, CONTINUOUS , Starting on Thuy 07/07/21 at 0845, Until Discontinu ed, Routine, PACU [facility] HYDROmorphO ne (DILAUDID) injection 0.2 mg 07-07 13:35: 49 07-07 14:34 :40 No .2mg 0.2 mg, Slow IV Push, Q5MIN PRN, 10 doses, Starting on Thuy 07/07/21 at 0835, Until Thuy 07/07/21 at 0934, Routine, Pain (scale 7-10), PACU
Us e approved by (Faculty): PACU USE -ANESTHESI A SERVICE-HY DROMORPHON E INJECTIONS [facility] bupivacaine (preserv free) (SENSORCAIN E MPF) 0.25 % (2.5 mg/mL) 5 mL, lidocaine 1% (PF) (XYLOCAINE) 5 mL 07-07 13:14: 00 07-07 14:34 :40 No PRN, Starting on Thuy 07/07/21 at 0814, Intra-op [facility] benzocaine- menthoL (CEPACOL SORE THROAT (ANA LILIA-MEN)) lozenge 1 Lozenge 07-07 00:29: 57 Yes 1{lozen ge} 1 Lozenge, Oral, Q4HPRN, Starting on Sun07/06/21 at 1929, Until Discontinu ed, Routine, cough/sore throat [facility] benzocaine- menthoL (CEPACOL SORE THROAT (ANA LILIA-MEN)) lozenge 1 Lozenge 07-07 00:29: 57 Yes 1{lozen ge} 1 Lozenge, Oral, Q4HPRN, Starting on Sun07/06/21 at 1929, Until Discontinu ed, Routine, cough/sore throat [facility] insulin NPH and regular human 70-30 (HUMULIN 70-30 U-100 INSULIN) 100 unit/mL (70-30) injection 13 Units 07-06 22:00: 00 Yes 13U 13 Units, Subcutaneo us, QAM+PM, First dose on Sun07/06/21 at 1700, Until Discontinu ed, Routine [facility] insulin NPH and regular human 70-30 (HUMULIN 70-30 U-100 INSULIN) 100 unit/mL (70-30) injection 13 Units 07-06 22:00: 00 Yes 13U 13 Units, Subcutaneo us, QAM+PM, First dose on Sun07/06/21 at 1700, Until Discontinu ed, Routine [facility] insulin NPH and regular human 70-30 (HUMULIN 70-30 U-100 INSULIN) 100 unit/mL (70-30) injection 13 Units 07-06 22:00: 00 Yes 13U 13 Units, Subcutaneo us, QAM+PM, First dose on Sun07/06/21 at 1700, Until Discontinu ed, Routine [facility] lisinopriL (PRINIVIL,Z ESTRIL) tablet 20 mg 07-06 18:30: 00 07-06 18:54 :00 No 20mg 20 mg, Oral, ONCE NOW, 1 dose, On Sun07/06/21 at 1330, Routine [facility] No known medications 07-06 07:41: 15 No [facility] lactated ringers IV infusion 1,000 mL 07-06 00:15: 00 07-06 13:29 :01 No 1000mL at 100 mL/hr, 1,000 mL, IV Infusion, CONTINUOUS , Starting on Sun07/05/21 at 1915, Until Sun07/06/21 at 0829, Routine, PACU [facility] sodium chloride 0.9 % irrigation solution 07-06 00:09: 00 07-06 00:34 :57 No PRN, Starting on Sun07/05/21 at 1909, Until Sun07/05/21 at 193, Intra-op [facility] bupivacaine (preserv free) 0.5% (SENSORCAIN E MPF) 0.5 % (5 mg/mL) injection 07-06 00:07: 00 07-06 00:34 :57 No PRN, Starting on Sun07/05/21 at 1907, Until Sun07/05/21 at 1934, Routine, Intra-op [facility] lidocaine 1% (XYLOCAINE) 10 mg/mL (1 %) injection 07-05 23:22: 00 07-06 00:34 :57 No PRN, Starting on Sun07/05/21 at 1822, Until Sun07/05/21 at 193, Routine, Intra-op [facility] gadoteridol (PROHANCE-2 0 mL) injection 19.2 mL 07-05 14:45: 00 07-05 14:45 :00 No [id number] .2mL/kg 19.2 mL (0.2 mL/kg ?96 kg), Intravenou s, ONCE, 1 dose, On Sun07/05/21 at 0945, Routine [facility] vancomycin 1500 mg in NS 500 mL IV Piggyback RTU 1,500 mg 07-05 05:00: 00 Yes 1500mg 1,500 mg, IV Infusion, Q12H ABX, First dose on Sun07/05/21 at 0000, Until Discontinu ed, Administer over 90 Minutes
Reason for Anti-Infec tive: Documented Infection< br>Documen uelalio Infection Site: Wound
D uration of Therapy: 7 days [facility] vancomycin 1500 mg in NS 500 mL IV Piggyback RTU 1,500 mg 07-05 05:00: 00 Yes 1500mg 1,500 mg, IV Infusion, Q12H ABX, First dose on Sun07/05/21 at 0000, Until Discontinu ed, Administer over 90 Minutes
Reason for Anti-Infec tive: Documented Infection< br>Documen eulalio Infection Site: Wound
D uration of Therapy: 7 days [facility] vancomycin 1500 mg in NS 500 mL IV Piggyback RTU 1,500 mg 07-05 05:00: 00 Yes 1500mg 1,500 mg, IV Infusion, Q12H ABX, First dose on Sun07/05/21 at 0000, Until Discontinu ed, Administer over 90 Minutes
Reason for Anti-Infec tive: Documented Infection< br>Documen eulalio Infection Site: Wound
D uration of Therapy: 7 days [facility] metroNIDAZO LE (FLAGYL) tablet 500 mg 07-05 03:00: 00 Yes 500mg 500 mg, Oral, Q8H, First dose on Sun07/04/21 at 2200, Until Discontinu ed, Routine
Reason for Anti-Infec tive: Documented Infection< br>Documen eulalio Infection Site: Skin / Soft Tissue
Duration of Therapy: 7 days [facility] metroNIDAZO LE (FLAGYL) tablet 500 mg 07-05 03:00: 00 Yes 500mg 500 mg, Oral, Q8H, First dose on Sun07/04/21 at 2200, Until Discontinu ed, Routine
Reason for Anti-Infec tive: Documented Infection< br>Documen eulalio Infection Site: Skin / Soft Tissue
Duration of Therapy: 7 days [facility] metroNIDAZO LE (FLAGYL) tablet 500 mg 07-05 03:00: 00 Yes 500mg 500 mg, Oral, Q8H, First dose on Sun07/04/21 at 2200, Until Discontinu ed, Routine
Reason for Anti-Infec tive: Documented Infection< br>Documen eulalio Infection Site: Skin / Soft Tissue
Duration of Therapy: 7 days [facility] benzonatate (TESSALON PERLES) capsule 100 mg 07-05 01:20: 41 Yes 100mg 100 mg, Oral, TIDPRN, Starting on Sun07/04/21 at 2019, Until Discontinu ed, Routine, Cough [facility] benzonatate (TESSALON PERLES) capsule 100 mg 07-05 01:20: 41 Yes 100mg 100 mg, Oral, TIDPRN, Starting on Sun07/04/21 at 2019, Until Discontinu ed, Routine, Cough [facility] benzonatate (TESSALON PERLES) capsule 100 mg 07-05 01:20: 41 Yes 100mg 100 mg, Oral, TIDPRN, Starting on Sun07/04/21 at 2019, Until Discontinu ed, Routine, Cough [facility] HYDROcodone -acetaminop hen (NORCO) 10-325 mg tablet 1 tablet 07-05 01:20: 21 Yes 1{tbl} 1 tablet, Oral, Q6HPRN, Starting on Sun07/04/21 at 2020, Until Discontinu ed, Routine, Pain (scale 7-10) [facility] HYDROcodone -acetaminop hen (NORCO) 10-325 mg tablet 1 tablet 07-05 01:20: 21 Yes 1{tbl} 1 tablet, Oral, Q6HPRN, Starting on Sun07/04/21 at 2020, Until Discontinu ed, Routine, Pain (scale 7-10) [facility] HYDROcodone -acetaminop hen (NORCO) 10-325 mg tablet 1 tablet 07-05 01:20: 21 Yes 1{tbl} 1 tablet, Oral, Q6HPRN, Starting on Sun07/04/21 at 2020, Until Discontinu ed, Routine, Pain (scale 7-10) [facility] HYDROcodone -acetaminop hen (NORCO 5) 5-325 mg tablet 1 tablet 07-05 01:20: 07 Yes 1{tbl} 1 tablet, Oral, Q6HPRN, Starting on Sun07/04/21 at 2019, Until Discontinu ed, Routine, Pain (scale 4-6) [facility] HYDROcodone -acetaminop hen (NORCO 5) 5-325 mg tablet 1 tablet 07-05 01:20: 07 Yes 1{tbl} 1 tablet, Oral, Q6HPRN, Starting on Sun07/04/21 at 2019, Until Discontinu ed, Routine, Pain (scale 4-6) [facility] HYDROcodone -acetaminop hen (NORCO 5) 5-325 mg tablet 1 tablet 07-05 01:20: 07 Yes 1{tbl} 1 tablet, Oral, Q6HPRN, Starting on Sun07/04/21 at 2019, Until Discontinu ed, Routine, Pain (scale 4-6) [facility] lactobacill us acidophilus tablet 0.5 mg 07-05 01:00: 00 Yes .5mg 0.5 mg, Oral, BID, First dose on Sun07/04/21 at 2000, Until Discontinu ed, Routine [facility] lactobacill us acidophilus tablet 0.5 mg 07-05 01:00: 00 Yes .5mg 0.5 mg, Oral, BID, First dose on Sun07/04/21 at 2000, Until Discontinu ed, Routine [facility] lactobacill us acidophilus tablet 0.5 mg 07-05 01:00: 00 Yes .5mg 0.5 mg, Oral, BID, First dose on Sun07/04/21 at 2000, Until Discontinu ed, Routine [facility] ceFEPIme (MAXIPIME) 1,000 mg in NaCl 0.9% (NS) 50 mL MINI-BAG 07-04 21:30: 00 Yes 1000mg 1,000 mg, IV Piggyback, Q8H ABX, First dose on Sun07/04/21 at 1630, Until Discontinu ed, Administer over 30 Minutes, 50 mL
Reas on for Anti-Infec tive: Documented Infection< br>Documen eulalio Infection Site: Skin / Soft Tissue
Duration of Therapy: 7 days [facility] ceFEPIme (MAXIPIME) 1,000 mg in NaCl 0.9% (NS) 50 mL MINI-BAG 07-04 21:30: 00 Yes 1000mg 1,000 mg, IV Piggyback, Q8H ABX, First dose on Sun07/04/21 at 1630, Until Discontinu ed, Administer over 30 Minutes, 50 mL
Reas on for Anti-Infec tive: Documented Infection< br>Documen eulalio Infection Site: Skin / Soft Tissue
Duration of Therapy: 7 days [facility] ceFEPIme (MAXIPIME) 1,000 mg in NaCl 0.9% (NS) 50 mL MINI-BAG 07-04 21:30: 00 Yes 1000mg 1,000 mg, IV Piggyback, Q8H ABX, First dose on Sun07/04/21 at 1630, Until Discontinu ed, Administer over 30 Minutes, 50 mL
Reas on for Anti-Infec tive: Documented Infection< br>Documen eulalio Infection Site: Skin / Soft Tissue
Duration of Therapy: 7 days [facility] atorvastati n (LIPITOR) tablet 40 mg 07-04 02:00: 00 Yes 40mg 40 mg, Oral, QHS, First dose on 07/03/21 at 2100, Until Discontinu ed, Routine [facility] atorvastati n (LIPITOR) tablet 40 mg 07-04 02:00: 00 Yes 40mg 40 mg, Oral, QHS, First dose on 07/03/21 at 2100, Until Discontinu ed, Routine [facility] atorvastati n (LIPITOR) tablet 40 mg 07-04 02:00: 00 Yes 40mg 40 mg, Oral, QHS, First dose on 07/03/21 at 2100, Until Discontinu ed, Routine [facility] vancomycin (VANCOCIN) 1,000 mg in NaCl 0.9% (NS) 250 mL VIAL-MATE IV piggyback 07-03 17:00: 00 07-04 22:34 :00 No 1000mg 1,000 mg, IV Piggyback, Q12H ABX, First dose (after last reorder) on Sun07/03/21 at 1200, Until Discontinu ed, Administer over 60 Minutes, 250 mL
Reas on for Anti-Infec tive: Documented Infection< br>Documen eulalio Infection Site: Wound
D uration of Therapy: 7 days [facility] iopamidol (ISOVUE 370-500 mL) injection 100 mL 07-03 16:00: 00 07-03 14:35 :00 No [id number] 100mL 100 mL, Intravenou s, ONCE, 1 dose, On Sun07/03/21 at 1100, Routine [facility] magnesium sulfate in water 2 gram/50 mL (4 %) infusion 2 g 07-03 14:30: 00 07-03 15:41 :00 No 2g 2 g, IV Piggyback, ONCE, 1 dose, On Sun07/03/21 at 0930, Routine [facility] piperacilli n-tazobacta m (ZOSYN) 3.375 g in NaCl 0.9% (NS) 100 mL MINI-BAG 07-03 14:15: 00 07-04 20:21 :19 No 3.375g 3.375 g, IV Piggyback, Q6H ABX, First dose (after last reorder) on Sun07/03/21 at 0915, Until Discontinu ed, Administer over 30 Minutes, 100 mL
Reas on for Anti-Infec tive: Documented Infection& lt;br>Docu mented Infection Site: Wound
D uration of Therapy: Other (see Comments) [facility] aspirin chewable tablet 81 mg 07-03 14:00: 00 Yes 81mg 81 mg, Oral, DAILY, First dose on Sun07/03/21 at 0900, Until Discontinu ed, Routine [facility] enoxaparin (LOVENOX) injection 40 mg 07-03 14:00: 00 Yes 40mg 40 mg, Subcutaneo us, DAILY, First dose on 07/03/21 at 0900, Until Discontinu ed, Routine [facility] aspirin chewable tablet 81 mg 07-03 14:00: 00 Yes 81mg 81 mg, Oral, DAILY, First dose on 07/03/21 at 0900, Until Discontinu ed, Routine [facility] enoxaparin (LOVENOX) injection 40 mg 07-03 14:00: 00 Yes 40mg 40 mg, Subcutaneo us, DAILY, First dose on 07/03/21 at 0900, Until Discontinu ed, Routine [facility] aspirin chewable tablet 81 mg 07-03 14:00: 00 Yes 81mg 81 mg, Oral, DAILY, First dose on 07/03/21 at 0900, Until Discontinu ed, [facility] 40 mg 07-03 14:00: 00 Yes 40mg 40 mg, Subcutaneo us, DAILY, First dose on 07/03/21 at 0900, Until Discontinu ed, Routine [facility] NaCl 0.9% (NS) IV infusion 1,000 mL 07-03 13:15: 00 Yes 1000mL at 50 mL/hr, IV Infusion, CONTINUOUS , Starting on 07/03/21 at 0815, Until Discontinu ed, Routine [facility] NaCl 0.9% (NS) IV infusion 1,000 mL 07-03 13:15: 00 Yes 1000mL at 50 mL/hr, IV Infusion, CONTINUOUS , Starting on 07/03/21 at 0815, Until Discontinu ed, [facility] NaCl 0.9% (NS) IV infusion 1,000 mL 07-03 13:15: 00 Yes 1000mL at 50 mL/hr, IV Infusion, CONTINUOUS , Starting on 07/03/21 at 0815, Until Discontinu ed, [facility] docus[facility] ([facility]ACE[facility] capsule 100 mg 07-03 13:00: 00 Yes 100mg 100 mg, Oral, BID, First dose on 07/03/21 at 0800, Until Discontinu ed, Routine [facility] docusate (COLACE) capsule 100 mg 07-03 13:00: 00 Yes 100mg 100 mg, Oral, BID, First dose on 07/03/21 at 0800, Until Discontinu ed, Routine [facility] docusate (COLACE) capsule 100 mg 07-03 13:00: 00 Yes 100mg 100 mg, Oral, BID, First dose on 07/03/21 at 0800, Until Discontinu ed, Routine [facility] lisinopriL (PRINIVIL,Z ESTRIL) tablet 20 mg 07-03 13:00: 00 07-06 17:22 :08 No 20mg 20 mg, Oral, BID, First dose on 07/03/21 at 0800, Until Discontinu ed, Routine [facility] glipiZIDE (GLUCOTROL) tablet 10 mg 07-03 12:30: 00 Yes 10mg 10 mg, Oral, BIDAC, First dose on 07/03/21 at 0730, Until Discontinu ed, Routine [facility] glipiZIDE (GLUCOTROL) tablet 10 mg 07-03 12:30: 00 Yes 10mg 10 mg, Oral, BIDAC, First dose on 07/03/21 at 0730, Until Discontinu ed, Routine [facility] glipiZIDE (GLUCOTROL) tablet 10 mg 07-03 12:30: 00 Yes 10mg 10 mg, Oral, BIDAC, First dose on 07/03/21 at 0730, Until Discontinu ed, Routine [facility] insulin NPH and regular human 70-30 (HUMULIN 70-30 U-100 INSULIN) 100 unit/mL (70-30) injection 10 Units 07-03 12:30: 00 07-04 13:29 :20 No 10U 10 Units, Subcutaneo us, BIDAC, First dose on 07/03/21 at 0730, Until Discontinu ed, Routine [facility] magnesium oxide (MAG-OX 400) tablet 400 mg 07-03 12:15: 00 Yes 400mg 400 mg, Oral, BID, First dose on 07/03/21 at 0715, Until Discontinu ed, Routine [facility] magnesium oxide (MAG-OX 400) tablet 400 mg 07-03 12:15: 00 Yes 400mg 400 mg, Oral, BID, First dose on 07/03/21 at 0715, Until Discontinu ed, Routine [facility] magnesium oxide (MAG-OX 400) tablet 400 mg 07-03 12:15: 00 Yes 400mg 400 mg, Oral, BID, First dose on 07/03/21 at 0715, Until Discontinu ed, Routine [facility] Sliding Scale Insulin - Lispro (HumaLOG) + Fsbg Testing 07-03 08:45: 00 Yes Subcutaneo us, TID MEALS, First dose on Sun07/03/21 at 0345, Until Discontinu ed, Routine [facility] Sliding Scale Insulin - Lispro (HumaLOG) + Fsbg Testing 07-03 08:45: 00 Yes Subcutaneo us, TID MEALS, First dose on Sun07/03/21 at 0345, Until Discontinu ed, Routine [facility] Sliding Scale Insulin - Lispro (HumaLOG) + Fsbg Testing 07-03 08:45: 00 Yes Subcutaneo us, TID MEALS, First dose on Sun07/03/21 at 0345, Until Discontinu ed, Routine [facility] ondansetron (ZOFRAN (PF)) injection 4 mg 07-03 08:30: 37 Yes 4mg 4 mg, Slow IV Push, Q6HPRN, Starting on 07/03/21 at 0330, Until Discontinu ed, Routine, Nausea and Vomiting (N/V) [facility] ondansetron (ZOFRAN (PF)) injection 4 mg 07-03 08:30: 37 Yes 4mg 4 mg, Slow IV Push, Q6HPRN, Starting on 07/03/21 at 0330, Until Discontinu ed, Routine, Nausea and Vomiting (N/V) [facility] ondansetron (ZOFRAN (PF)) injection 4 mg 07-03 08:30: 37 Yes 4mg 4 mg, Slow IV Push, Q6HPRN, Starting on Sun07/03/21 at 0330, Until Discontinu ed, Routine, Nausea and Vomiting (N/V) [facility] piperacilli n-tazobacta m (ZOSYN) 3.375 g in NaCl 0.9% (NS) 100 mL MINI-BAG 07-03 08:30: 00 07-03 08:16 :00 No 3.375g 3.375 g, IV Piggyback, ONCE, 1 dose, On Sun07/03/21 at 0330, Administer over 30 Minutes, 100 mL
Reas on for Anti-Infec tive: Documented Infection< br>Documen eulalio Infection Site: Wound
D uration of Therapy: Other (see Comments) [facility] glucagon (GLUCAGEN DIAGNOSTIC KIT) injection 1 mg 07-03 08:29: 07 Yes 1mg 1 mg, Intramuscu lar, PRN, Starting on Sun07/03/21 at 0329, Until Discontinu ed, JUAN, Blood Glucose < or = 70 mg/dL and patient is unable to swallow or has mental changes. [facility] dextrose 50 % in water (D50W) injection 25 mL 07-03 08:29: 07 Yes 25mL 25 mL, Slow IV Push, PRN, Starting on Sun07/03/21 at 0329, Until Discontinu ed, JUAN, Blood Glucose < or = 70 mg/dL and patient is unable to swallow or has mental status changes. [facility] glucagon (GLUCAGEN DIAGNOSTIC KIT) injection 1 mg 07-03 08:29: 07 Yes 1mg 1 mg, Intramuscu lar, PRN, Starting on Sun07/03/21 at 0329, Until Discontinu ed, JUAN, Blood Glucose < or = 70 mg/dL and patient is unable to swallow or has mental changes. [facility] dextrose 50 % in water (D50W) injection 25 mL 07-03 08:29: 07 Yes 25mL 25 mL, Slow IV Push, PRN, Starting on Sun07/03/21 at 0329, Until Discontinu ed, JUAN, Blood Glucose < or = 70 mg/dL and patient is unable to swallow or has mental status changes. [facility] glucagon (GLUCAGEN DIAGNOSTIC KIT) injection 1 mg 07-03 08:29: 07 Yes 1mg 1 mg, Intramuscu lar, PRN, Starting on Sun07/03/21 at 0329, Until Discontinu ed, JUAN, Blood Glucose < or = 70 mg/dL and patient is unable to swallow or has mental changes. [facility] dextrose 50 % in water (D50W) injection 25 mL 07-03 08:29: 07 Yes 25mL 25 mL, Slow IV Push, PRN, Starting on Sun07/03/21 at 0329, Until Discontinu ed, JUAN, Blood Glucose < or = 70 mg/dL and patient is unable to swallow or has mental status changes. [facility] labetaloL (NORMODYNE) injection 10 mg 07-03 08:00: 00 07-03 07:02 :00 No 10mg 10 mg, Slow IV Push, ONCE, 1 dose, On Sun07/03/21 at 0300, JUAN [facility] HYDROcodone -acetaminop hen (NORCO) 10-325 mg tablet 1 tablet 07-03 07:15: 00 07-03 06:13 :00 No 1{tbl} 1 tablet, Oral, ONCE, 1 dose, On [place] 07/03/21 at 0215, Routine [facility] vancomycin 1500 mg in NS 500 mL IV Piggyback RTU 1,500 mg 07-03 07:00: 00 07-03 07:31 :00 No 15mg/kg 1,500 mg (rounded from 1,633.5 mg = 15 mg/kg ?108.9 kg), IV Piggyback, ONCE, 1 dose, On [place] 07/03/21 at 0200, Administer over 90 Minutes
Reason for Anti-Infec tive: Documented Infection< br>Docu mented Infection Site: Wound
D uration of Therapy: 7 days [facility] NaCl 0.9% (NS) bolus infusion 1,000 mL 07-03 06:00: 00 07-03 07:55 :00 No 1000mL at 999 mL/hr, 1,000 mL, IV Infusion, ONCE, 1 dose, On 07/03/21 at 0100, STAT [facility] Novolin R Regular U-100 Insulin 100 unit/mL injection solution 11-09 00:00: 00 No unit/mL glipizide 10 mg tablet 11-09 00:00: 00 No 1mg lisinopril 20 mg tablet 11-09 00:00: 00 No 1mg metformin 1,000 mg tablet 11-09 00:00: 00 No 1mg lovastatin 40 mg tablet 11-09 00:00: 00 No 1mg Novolin R Regular U-100 Insulin 100 unit/mL injection solution 11-09 00:00: 00 No unit/mL glipizide 10 mg tablet 11-09 00:00: 00 No 1mg lisinopril 20 mg tablet 11-09 00:00: 00 No 1mg metformin 1,000 mg tablet 11-09 00:00: 00 No 1mg lovastatin 40 mg tablet 11-09 00:00: 00 No 1mg glipizide 10 mg tablet 2016-10 00:00: 00 No 1mg lovastatin 20 mg tablet 2016-10 00:00: 00 No 1mg metformin 1,000 mg tablet 2016-10 00:00: 00 No 1mg glipizide 10 mg tablet 2016-10 00:00: 00 No 1mg lovastatin 20 mg tablet 2016-10 00:00: 00 No 1mg metformin 1,000 mg tablet 2016-10 00:00: 00 No 1mg lovastatin 20 mg tablet 06-23 00:00: 00 No 1mg lisinopril 20 mg tablet 06-23 00:00: 00 No 1mg metformin 1,000 mg tablet 06-23 00:00: 00 No 1mg glipizide 10 mg tablet 06-23 00:00: 00 No 1mg lovastatin 20 mg tablet 06-23 00:00: 00 No 1mg lisinopril 20 mg tablet 06-23 00:00: 00 No 1mg metformin 1,000 mg tablet 06-23 00:00: 00 No 1mg glipizide 10 mg tablet 06-23 00:00: 00 No 1mg glipizide 10 mg tablet 01-10 00:00: 00 No 1mg glipizide 10 mg tablet 01-10 00:00: 00 No 1mg glipizide 5 mg tablet 01-05 00:00: 00 No 1mg lovastatin 20 mg tablet 01-05 00:00: 00 No 1mg lisinopril 20 mg tablet 01-05 00:00: 00 No 1mg metformin 1,000 mg tablet 01-05 00:00: 00 No 1mg glipizide 5 mg tablet 01-05 00:00: 00 No 1mg lovastatin 20 mg tablet 01-05 00:00: 00 No 1mg lisinopril 20 mg tablet 01-05 00:00: 00 No 1mg metformin 1,000 mg tablet 01-05 00:00: 00 No 1mg metformin 500 mg tablet 01-04 00:00: 00 No 1mg metformin 500 mg tablet 01-04 00:00: 00 No 1mg Vital Signs Vital Name Observation Time Observation Value Comments S ource Systolic blood pressure 2023-11-30 18:23:00 140 mm[Hg] Sonia Snyder ld - External Diastolic blood pressure 2023-11-30 18:23:00 76 mm[Hg] Sonia doyle - External Heart rate 2023-11-30 17:49:00 87 /min Mireya Orr - External Body temperature 2023-11-30 17:49:00 36.17 Rhonda Sonia Orr - External Respiratory rate 2023-11-30 17:49:00 19 /min Sonia Orr - External Body height 2023-11-30 17:49:00 162.6 cm Lorenza ey Seybold - External Body weight 2023-11-30 17:49:00 103.42 kg Lorenza ey Seybold - External BMI 2023-11-30 17:49:00 39.14 kg/m2 Lorenza ey Seybold - External Oxygen saturation in Arterial blood by Pulse oximetry 2023-11-30 17:49:00 97 /min Sonia Seybo ld - External Systolic blood pressure 2023-11-16 14:25:00 142 mm[Hg] Sonia Seybo ld - External Diastolic blood pressure 2023-11-16 14:25:00 88 mm[Hg] Sonia Seybo ld - External Heart rate 2023-11-16 14:21:00 91 /min Kelse y Seybold - External Body temperature 2023-11-16 14:21:00 35.83 Rhonda Sonia Seybold - External Respiratory rate 2023-11-16 14:21:00 20 /min Sonia Seybold - External Body height 2023-11-16 14:21:00 162.6 cm Lorenza ey Seybold - External Body weight 2023-11-16 14:21:00 103.42 kg Lorenza ey Seybold - External BMI 2023-11-16 14:21:00 39.14 kg/m2 Lorenza ey Seybold - External Oxygen saturation in Arterial blood by Pulse oximetry 2023-11-16 14:21:00 91 /min Sonia Seybo ld - External Systolic blood pressure 2023-03-19 14:28:00 176 mm[Hg] Sonia Seybo ld - External Diastolic blood pressure 2023-03-19 14:28:00 88 mm[Hg] Sonia Seybo ld - External Heart rate 2023-03-19 14:28:00 92 /min Kelse y Seybold - External Body temperature 2023-03-19 14:28:00 36.72 Rhonda Sonia Seybold - External Respiratory rate 2023-03-19 14:28:00 22 /min Sonia Seybold - External Body height 2023-03-19 14:28:00 162.6 cm Lorenza ey Seybold - External Body weight 2023-03-19 14:28:00 111.857 kg Lorenza ey Seybold - External BMI 2023-03-19 14:28:00 42.33 kg/m2 Lorenza reed Seybold - External Oxygen saturation in Arterial blood by Pulse oximetry 2023-03-19 14:28:00 94 /min Sonia Jacobaraceliso ld - External Systolic blood pressure 2023-02-09 16:14:00 113 mm[Hg] [facility] Diastolic blood pressure 2023-02-09 16:14:00 57 mm[Hg] [facility] Heart rate 2023-02-09 16:14:00 66 /min [facility] Body temperature 2023-02-09 16:14:00 36.17 Rhonda [facility] Respiratory rate 2023-02-09 16:14:00 18 /min [facility] Oxygen saturation in Arterial blood by Pulse oximetry 2023-02-09 16:14:00 93 /min [facility] Body weight 2023-02-03 15:03:00 103.329 kg [facility] BMI 2023-02-03 15:03:00 34.64 kg/m2 [facility] Body height 2023-01-31 04:48:00 172.7 cm [facility] Body height 2022-12-06 20:48:00 170.2 cm Lorenza ey Seybold - External Systolic blood pressure 2022-12-06 20:20:00 154 mm[Hg] Sonia Kolbo ld - External Diastolic blood pressure 2022-12-06 20:20:00 90 mm[Hg] Sonia Jacobaraceliso ld - External Heart rate 2022-12-06 20:20:00 92 /min Ronald y Seybold - External Body temperature 2022-12-06 20:20:00 37.11 Rhonda Sonia Jacobybold - External Respiratory rate 2022-12-06 20:20:00 14 /min Sonia Seybold - External Body weight 2022-12-06 20:20:00 105.688 kg Lorenza ey Seybold - External BMI 2022-12-06 20:20:00 36.49 kg/m2 Lorenza ey Seybold - External Oxygen saturation in Arterial blood by Pulse oximetry 2022-12-06 20:20:00 96 /min Sonianito Kolbo ld - External Systolic blood pressure 2021-07-08 12:33:00 181 mm[Hg] [facility] Diastolic blood pressure 2021-07-08 12:33:00 86 mm[Hg] [facility] Heart rate 2021-07-08 12:33:00 79 /min Unive [facility] Body temperature 2021-07-08 12:33:00 36.28 Rhonda [facility] Respiratory rate 2021-07-08 12:33:00 18 /min [facility] Oxygen saturation in Arterial blood by Pulse oximetry 2021-07-08 12:33:00 95 /min [facility] Body weight 2021-07-08 08:12:00 98.975 kg [facility] BMI 2021-07-08 08:12:00 35.24 kg/m2 [facility] Body height 2021-07-06 12:41:00 167.6 cm [facility] Systolic blood pressure 2021-07-07 14:15:00 142 mm[Hg] [facility] Diastolic blood pressure 2021-07-07 14:15:00 74 mm[Hg] [facility] Heart rate 2021-07-07 14:15:00 75 /[facility] Respiratory rate 2021-07-07 14:15:00 18 /min [facility] Oxygen saturation in Arterial blood by Pulse oximetry 2021-07-07 14:15:00 91 /min [facility] Body temperature 2021-07-07 13:30:00 36.11 Rhonda [facility] Body weight 2021-07-07 09:26:00 97.977 kg [facility] BMI 2021-07-07 09:26:00 35.24 kg/m2 [facility] Body height 2021-07-06 12:41:00 167.6 cm [facility] Systolic blood pressure 2021-07-05 20:29:00 177 mm[Hg] [facility] Diastolic blood pressure 2021-07-05 20:29:00 83 mm[Hg] [facility] Heart rate 2021-07-05 20:29:00 98 /min [facility] Body temperature 2021-07-05 20:29:00 37.22 Rhonda [facility] Oxygen saturation in Arterial blood by Pulse oximetry 2021-07-05 20:29:00 98 /min [place] [facility] Respiratory rate 2021-07-05 09:46:00 20 /min [facility] Body weight 2021-07-05 09:46:00 95.981 kg [facility] BMI 2021-07-05 09:46:00 34.18 kg/m2 [facility] Body height 2021-07-04 13:04:00 167.6 cm [facility] BP Systolic 2022-09-09 11:01:00 206 mm[Hg] BP Diastolic 2022-09-09 11:01:00 97 mm[Hg] Weight Measured 2022-09-09 11:01:00 207.80 pounds Height Measured 2022-09-09 11:01:00 67.00 inches Body Temperature 2022-09-09 11:01:00 97.90 degrees Heart Rate 2022-09-09 11:01:00 85.00 /min Respiratory Rate 2022-09-09 11:01:00 BP Systolic 2022-06-13 10:11:00 191 mm[Hg] BP Diastolic 2022-06-13 10:11:00 101 mm[Hg] Weight Measured 2022-06-13 10:11:00 212.80 pounds Height Measured 2022-06-13 10:11:00 67.00 inches Body Temperature 2022-06-13 10:11:00 98.10 degrees Heart Rate 2022-06-13 10:11:00 91.00 /min Respiratory Rate 2022-06-13 10:11:00 18.00 /min BP Systolic 2022-06-13 09:41:00 191 mm[Hg] BP Diastolic 2022-06-13 09:41:00 101 mm[Hg] Weight Measured 2022-06-13 09:41:00 212.80 pounds Height Measured 2022-06-13 09:41:00 67.00 inches Body Temperature 2022-06-13 09:41:00 98.10 degrees Heart Rate 2022-06-13 09:41:00 91.00 /min Respiratory Rate 2022-06-13 09:41:00 18.00 /min BP Systolic 2022-03-25 09:50:00 194 mm[Hg] BP Diastolic 2022-03-25 09:50:00 97 mm[Hg] Weight Measured 2022-03-25 09:50:00 215.80 pounds Height Measured 2022-03-25 09:50:00 67.00 inches Body Temperature 2022-03-25 09:50:00 98.00 degrees Heart Rate 2022-03-25 09:50:00 77.00 /min Respiratory Rate 2022-03-25 09:50:00 BP Systolic 2022-02-10 17:50:00 178 mm[Hg] BP Diastolic 2022-02-10 17:50:00 97 mm[Hg] Weight Measured 2022-02-10 17:50:00 211.80 pounds Height Measured 2022-02-10 17:50:00 67.00 inches Body Temperature 2022-02-10 17:50:00 98.20 degrees Heart Rate 2022-02-10 17:50:00 89.00 /min Respiratory Rate 2022-02-10 17:50:00 19.00 /min BP Systolic 2021-12-20 08:45:00 175 mm[Hg] BP Diastolic 2021-12-20 08:45:00 98 mm[Hg] Weight Measured 2021-12-20 08:45:00 211.80 pounds Height Measured 2021-12-20 08:45:00 67.00 inches Body Temperature 2021-12-20 08:45:00 98.20 degrees Heart Rate 2021-12-20 08:45:00 86.00 /min Respiratory Rate 2021-12-20 08:45:00 16.00 /min BP Systolic 2021-12-17 16:51:00 161 mm[Hg] BP Diastolic 2021-12-17 16:51:00 88 mm[Hg] Weight Measured 2021-12-17 16:51:00 214.20 pounds Height Measured 2021-12-17 16:51:00 67.00 inches Body Temperature 2021-12-17 16:51:00 98.30 degrees Heart Rate 2021-12-17 16:51:00 96.00 /min Respiratory Rate 2021-12-17 16:51:00 BP Systolic 2021-10-31 16:23:00 178 mm[Hg] BP Diastolic 2021-10-31 16:23:00 85 mm[Hg] Weight Measured 2021-10-31 16:23:00 223.60 pounds Height Measured 2021-10-31 16:23:00 67.00 inches Body Temperature 2021-10-31 16:23:00 98.30 degrees Heart Rate 2021-10-31 16:23:00 88.00 /min Respiratory Rate 2021-10-31 16:23:00 BP Systolic 2017-11-06 10:45:00 169 mm[Hg] BP Diastolic 2017-11-06 10:45:00 95 mm[Hg] Weight Measured 2017-11-06 10:45:00 Height Measured 2017-11-06 10:45:00 Body Temperature 2017-11-06 10:45:00 Heart Rate 2017-11-06 10:45:00 Respiratory Rate 2017-11-06 10:45:00 BP Systolic 2017-11-06 09:29:00 166 mm[Hg] BP Diastolic 2017-11-06 09:29:00 101 mm[Hg] Weight Measured 2017-11-06 09:29:00 227.00 pounds Height Measured 2017-11-06 09:29:00 67.00 inches Body Temperature 2017-11-06 09:29:00 98.90 degrees Heart Rate 2017-11-06 09:29:00 78.00 /min Respiratory Rate 2017-11-06 09:29:00 18.00 /min BP Systolic 2017-06-21 18:20:00 156 mm[Hg] BP Diastolic 2017-06-21 18:20:00 98 mm[Hg] Weight Measured 2017-06-21 18:20:00 Height Measured 2017-06-21 18:20:00 Body Temperature 2017-06-21 18:20:00 Heart Rate 2017-06-21 18:20:00 Respiratory Rate 2017-06-21 18:20:00 Procedures Procedure Date / Time Performed Performing Clinician Source POCT GLUCOSE (AUTOMATED) 2023-02-09 17:00:00 Thompson Walker [facility] VERIFYNOW ASPIRIN TEST 2023-02-09 14:40:00 Hamilton Orozcobbir [facility] POCT GLUCOSE (AUTOMATED) 2023-02-09 12:41:00 Thompson Walker [facility] PHOSPHORUS 2023-02-09 10:08[facility] 10:08:00 Lloyd [facility] BASIC METABOLIC PANEL (NA, K, CL, CO2, GLUCOSE, BUN, CREATININE, CA) 2023-02-09 10:08:[address] [facility] CBC WITH DIFF 2023-02-09 10:08:00 Lloyd [facility] PROTHROMBIN TIME / INR 2023-02-09 10:08:00 Vale Desai [facility] ACTIVATED PARTIAL THRMPLAS TAMI 2023-02-09 10:08:[address] [facility] POCT GLUCOSE (AUTOMATED) 2023-02-09 01:26:00 Thompson Walker [facility] POCT GLUCOSE (AUTOMATED) 2023-02-08 22:00:00 Thompson Walker [facility] VERIFYNOW ASPIRIN TEST 2023-02-08 21:37:00 Hamilton Orozcobbir [facility] POCT GLUCOSE (AUTOMATED) 2023-02-08 18:15:00 Thompson Walker [facility] POCT GLUCOSE (AUTOMATED) 2023-02-08 13:22:00 Thompson Walker [facility] PHOSPHORUS 2023-02-08 10:05:00 Lloyd [facility] MAGNESIUM 2023-02-08 10:05:00 Shawn Gaviria [facility] BASIC METABOLIC PANEL (NA, K, CL, CO2, GLUCOSE, BUN, CREATININE, CA) 2023-02-08 10:05:00 [facility] CBC WITH DIFF 2023-02-08 10:05:00 Rudolph raheem [facility] POCT GLUCOSE (AUTOMATED) 2023-02-08 01:10:00 WalkerThompson constantino [facility] POCT GLUCOSE (AUTOMATED) 2023-02-07 23:01:[address] [facility] POCT GLUCOSE (AUTOMATED) 2023-02-07 13:43:[address] [facility] HB ECG ROUTINE & RHYTHM STRIP 2023-02-07 13:36:00 Yadiel Rogers [facility] MAGNESIUM 2023-02-07 09:22:00 Rudolph raheem [facility] BASIC METABOLIC PANEL (NA, K, CL, CO2, GLUCOSE, BUN, CREATININE, CA) 2023-02-07 09:22:00 [facility] CBC WITH DIFF 2023-02-07 09:22:00 Rudolph [facility] POCT GLUCOSE (AUTOMATED) 2023-02-07 01:33:[address] [facility] POCT GLUCOSE (AUTOMATED) 2023-02-06 21:34:[address] [facility] [facility] POCT GLUCOSE (AUTOMATED) 2023-02-06 16:47:[address] [facility] HB ECG ROUTINE & RHYTHM STRIP 2023-02-06 13:01:37 Ken [facility] POCT GLUCOSE (AUTOMATED) 2023-02-06 12:44:[address] [facility] LUPUS ANTICOAGULANT REFLEXIVE PANEL 2023-02-06 11:01:00 Gianluca Araujo [facility] HEPATITIS B SURFACE ANTIBODY 2023-02-06 11:00:00 Shawn Gaviria [facility] HEPATITIS B SURFACE ANTIGEN 2023-02-06 11:00:00 Rudolph raheem [facility] HBC ANTIBODY (IGM & IGG) 2023-02-06 11:00:00 Ann Gaviria [facility] ANTICARDIOLIPIN ANTIBODIES 2023-02-06 11:00:00 Ayaka Gaviria [facility] ANTI-B2 GLYCOPROTEIN I AB 2023-02-06 11:00:00 Jersey Gaviria [facility] HEPATITIS C VIRUS (HCV) BY QUANTITATIVE NAAT 2023-02-06 11:00:00 [facility] ANTIPHOSPHOLIPID ANTIBODY EVALUATION-SST 2023-02-06 11:00:00 [facility] MAGNESIUM 2023-02-06 10:59:00 Rudolph [facility] BASIC METABOLIC PANEL (NA, K, CL, CO2, GLUCOSE, BUN, CREATININE, CA) 2023-02-06 10:59:00 [facility] CBC WITH DIFF 2023-02-06 10:59:00 Rudolph [facility] POCT GLUCOSE (AUTOMATED) 2023-02-06 01:30:00 Thompson Walker [facility] POCT GLUCOSE (AUTOMATED) 2023-02-05 21:14:00 Thompson Walker lisa [facility] NM MYOCARDIUM PERFUSION STRESS AND REST 2023-02-05 20:29:00 Denise [facility] POCT GLUCOSE (AUTOMATED) 2023-02-05 16:26:00 Thompson Walker [facility] RENAL ARTERY DUPLEX - BY VASCULAR LAB 2023-02-05 15:53:21 Denise [facility] UPPER EXTREMITY ARTERIAL DUPLEX BILATERAL - BY VASCULAR LAB 2023-02-05 15:53:16 Denise [facility] HB ECG ROUTINE & RHYTHM STRIP 2023-02-05 13:35:02 Yadiel Rogers [facility] POCT GLUCOSE (AUTOMATED) 2023-02-05 13:13:00 Thompson Walker [facility] MAGNESIUM 2023-02-05 09:51:00 Ethan aLu [facility] BASIC METABOLIC PANEL (NA, K, CL, CO2, GLUCOSE, BUN, CREATININE, CA) 2023-02-05 09:51:00 Ethan Lau [facility] POCT GLUCOSE (AUTOMATED) 2023-02-05 02:01:00 Thompson Walker lisa [facility] POCT GLUCOSE (AUTOMATED) 2023-02-04 21:50:00 Thompson Walker [facility] POCT GLUCOSE (AUTOMATED) 2023-02-04 17:08:00 Wakler, Fat lisa [facility] HB ECG ROUTINE & RHYTHM STRIP 2023-02-04 13:43:37 Yadiel Rogers [facility] POCT GLUCOSE (AUTOMATED) 2023-02-04 12:42:00 Thompson Walker [facility] MAGNESIUM 2023-02-04 09:41:00 Deborah Donahue [facility] BASIC METABOLIC PANEL (NA, K, CL, CO2, GLUCOSE, BUN, CREATININE, CA) 2023-02-04 09:41:00 Deborah Donahue [facility] CBC WITH DIFF 2023-02-04 09:41:00 Deborah Donahue [facility] POCT GLUCOSE (AUTOMATED) 2023-02-04 01:34:00 Thompson Walker lisa [facility] POCT GLUCOSE (AUTOMATED) 2023-02-03 22:23:00 Thompson Walker [facility] ALDOSTERONE, SERUM 2023-02-03 21:50:00 Jaz Walker [facility] CORTISOL AM 2023-02-03 21:49:00 Jaz Walker [facility] POCT GLUCOSE (AUTOMATED) 2023-02-03 16:49:00 Thompson Walker lisa [facility] POCT GLUCOSE (AUTOMATED) 2023-02-03 13:19:00 Thompson Walker lisa [facility] ELECTROPHORESIS, SERUM 2023-02-03 10:05:00 Libra Landeros [facility] MAGNESIUM 2023-02-03 10:04:00 Libra Landeros [facility] BASIC METABOLIC PANEL (NA, K, CL, CO2, GLUCOSE, BUN, CREATININE, CA) 2023-02-03 10:04:00 Libra Landeros [facility] CBC WITHOUT DIFF 2023-02-03 10:04:00 Libra Landeros [facility] ANTI-NUCLEAR ANTIBODY SCREEN 2023-02-03 10:04:00 Ethan Lau [facility] ANTI-NUCLEAR ANTIBODY TITER 2023-02-03 10:04:00 Ethan Lau [facility] IMMUNOFIXATION, SERUM 2023-02-03 10:04:00 Ethan Lau [facility] ANTI-NUCLEAR ANTIBODY-PATHOLOGIST INTERPRETATION 2023-02-03 10:04:00 Ethan Lau [facility] POCT GLUCOSE (AUTOMATED) 2023-02-03 02:15:00 Thompson Walker [facility] POCT GLUCOSE (AUTOMATED) 2023-02-02 22:14:[address] [facility] POCT GLUCOSE (AUTOMATED) 2023-02-02 17:14:[address] [facility] IMMUNOFIXATION, URINE FOR PANEL 2023-02-02 16:11:00 Ethan Lau [facility] ELECTROPHORESIS, SERUM 2023-02-02 16:11:00 Libra Landeros [facility] IMMUNOFIXATION, SERUM 2023-02-02 16:11:00 Ethan Lau [facility] HB ECG ROUTINE & RHYTHM STRIP 2023-02-02 12:48:22 Yadiel Rogers [facility] POCT GLUCOSE (AUTOMATED) 2023-02-02 12:36:00 Thompson Walker [facility] MAGNESIUM 2023-02-02 09:00:00 Ethan Lau [facility] BASIC METABOLIC PANEL (NA, K, CL, CO2, GLUCOSE, BUN, CREATININE, CA) 2023-02-02 09:00:00 Ethan Lau [facility] CBC WITHOUT DIFF 2023-02-02 09:00:00 Ethan Lau [facility] POCT GLUCOSE (AUTOMATED) 2023-02-02 01:14:00 Thompson Walker [facility] POCT GLUCOSE (AUTOMATED) 2023-02-01 21:58:[address] [facility] TRANSTHORACIC ECHO (TTE) COMPLETE W/ CONTRAST 2023-02-01 16:57:00 Yadiel Rogers [facility] POCT GLUCOSE (AUTOMATED) 2023-02-01 16:20:00 Thompson Walker [facility] HB ECG ROUTINE & RHYTHM STRIP 2023-02-01 13:16:33 Yadiel Rogers [facility] POCT GLUCOSE (AUTOMATED) 2023-02-01 12:50:00 Thompson Walker [facility] MAGNESIUM 2023-02-01 10:42:00 Libra Landeros [facility] BASIC METABOLIC PANEL (NA, K, CL, CO2, GLUCOSE, BUN, CREATININE, CA) 2023-02-01 10:42:00 Libra Landeros [facility] CBC WITHOUT DIFF 2023-02-01 10:42:00 Libra Landeros [facility] US RETROPERITONEAL LIMITED 2023-02-01 07:52:11 Yadiel Rogers [facility] MICROALBUMIN URINE 2023-02-01 05:17:00 Destin Barrett [facility] URINALYSIS 2023-02-01 05:17:00 Ethan Lau [facility] PROTEIN CREAT RATIO URINE RANDOM 2023-02-01 05:17:00 Sid Ethan [facility] UREA NITROGEN, URINE RANDOM 2023-02-01 05:17:00 Ethan Lau [facility] POCT GLUCOSE (AUTOMATED) 2023-02-01 01:48:00 Thompson Walker lisa [facility] POCT GLUCOSE (AUTOMATED) 2023-01-31 21:12:00 Thompson Walker [facility] POCT GLUCOSE (AUTOMATED) 2023-01-31 16:41:00 Thompson Walker lisa [facility] HB ECG ROUTINE & RHYTHM STRIP 2023-01-31 12:57:41 Yadiel Rogers [facility] POCT GLUCOSE (AUTOMATED) 2023-01-31 12:54:00 Thompson Walker lisa [facility] MAGNESIUM 2023-01-31 08:53:00 [facility] TROPONIN I 2023-01-31 08:53:00 [facility] THYROID STIMULATING HORMONE 2023-01-31 08:53:00 Deborah Donahue [facility] BASIC METABOLIC PANEL (NA, K, CL, CO2, GLUCOSE, BUN, CREATININE, CA) 2023-01-31 08:53:00 Yadiel Rogers [facility] LIPID PANEL (39115)(TOTAL CHOLESTEROL, TRIGLYCERIDES, HDL) 2023-01-31 08:53:00 Ethan Lau [facility] CBC WITH DIFF 2023-01-31 08:53:00 Yadiel Rogers [facility] GLYCOSYLATED HEMOGLOBIN (A1C) 2023-01-31 08:53:00 Ethan Lau [facility] XR CHEST 2 VW 2023-01-30 23:58:54 [facility] NOW RAPID TESTING) 2023-01-30 23:36:00 Micah Novoa [facility] LAB ONLY COVID INTERPRETATION 2023-01-30 23:36:00 Micah Novoa [facility] PHOSPHORUS 2023-01-30 23:33:00 Yadiel Rogers [facility] FERRITIN SERUM 2023-01-30 23:33:00 Yadiel Rogers [facility] TROPONIN I 2023-01-30 23:33:00 Micah Novoa [facility] FREE T4 2023-01-30 23:33:00 Deborah Donahue [facility] COMP. METABOLIC PANEL ([id number]) 2023-01-30 23:33:00 Micah Novoa [facility] IRON PANEL 2023-01-30 23:33:00 Yadiel Rogers [facility] CBC WITH DIFF 2023-01-30 23:33:00 Micah Novoa Un [facility] N-TERMINAL PRO-BNP 2023-01-30 23:33:00 Micah Novoa [facility] EKG-12 LEAD 2023-01-30 23:15:54 Gianluca Araujo [facility] NOTICE OF PRIVACY PRACTICES 2023-01-30 23:05:03 Doctor Unassigned, [place] [facility] CONSENT/REFUSAL FOR DIAGNOSIS AND TREATMENT 2023-01-30 23:04:08 Doctor Unassigned, [place] [facility] HOSPITAL ADMISSION 2023-01-30 05:01:00 Doctor Un assigned, [place] [facility] Ekg W/ At Least 12 Leads W/ I r 2021-12-17 00:00:00 POCT GLUCOSE (AUTOMATED) 2021-07-08 16:44:00 Winnie Villatoro [facility] POCT GLUCOSE (AUTOMATED) 2021-07-08 16:44:00 Winnie Villatoro [facility] POCT GLUCOSE (AUTOMATED) 2021-07-08 12:35:00 Winnie Villatoro [facility] POCT GLUCOSE (AUTOMATED) 2021-07-08 12:35:00 Winnie Villatoro [facility] POCT GLUCOSE (AUTOMATED) 2021-07-07 22:13:00 Winnie Villatoro [facility] POCT GLUCOSE (AUTOMATED) 2021-07-07 22:13:00 Winnie Villatoro [facility] POCT GLUCOSE (AUTOMATED) 2021-07-07 16:41:00 Winnie Villatoro [facility] POCT GLUCOSE (AUTOMATED) 2021-07-07 16:41:00 Winnie Villatoro [facility] POCT GLUCOSE (AUTOMATED) 2021-07-07 14:52:00 Winnie Villatoro [facility] POCT GLUCOSE (AUTOMATED) 2021-07-07 14:52:00 Winnie Villatoro [facility] CLOSURE SURGICAL WOUND LOWER EXTREMITY 2021-07-07 12:40:00 Nomi Robles [facility] CLOSURE SURGICAL WOUND LOWER EXTREMITY 2021-07-07 12:40:00 Nomi Robles [facility] POCT GLUCOSE (AUTOMATED) 2021-07-07 12:20:00 Gm De Los Santos [facility] POCT GLUCOSE (AUTOMATED) 2021-07-07 12:20:00 Gm De Los Santos [facility] BASIC METABOLIC PANEL (NA, K, CL, CO2, GLUCOSE, BUN, CREATININE, CA) 2021-07-07 10:27:00 Madie Orozco [facility] CBC WITH DIFF 2021-07-07 10:27:00 Madie Orozco [facility] BASIC METABOLIC PANEL (NA, K, CL, CO2, GLUCOSE, BUN, CREATININE, CA) 2021-07-07 10:27:00 Madie Orozco [facility] CBC WITH DIFF 2021-07-07 10:27:00 Madie Orozco Jayda [facility] POCT GLUCOSE (AUTOMATED) 2021-07-07 05:05:00 [facility] POCT GLUCOSE (AUTOMATED) 2021-07-07 05:05:00 Magali [facility] POCT GLUCOSE (AUTOMATED) 2021-07-06 21:32:00 Mag[facility] POCT GLUCOSE (AUTOMATED) 2021-07-06 21:32:00 Mag[facility] CBC WITH DIFF 2021-07-06 18:42:00 Nomi Robles [facility] CBC WITH DIFF 2021-07-06 18:42:00 Nomi Robles [facility] CBC WITH DIFF 2021-07-06 18:42:00 Nomi Robles [facility] POCT GLUCOSE (AUTOMATED) 2021-07-06 16:30:00 Mag[facility] POCT GLUCOSE (AUTOMATED) 2021-07-06 16:30:00 Mag[facility] POCT GLUCOSE (AUTOMATED) 2021-07-06 16:30:00 Magali suly [facility] VANCOMYCIN TROUGH 2021-07-06 15:35:00 Rebecca Lazo [facility] VANCOMYCIN TROUGH 2021-07-06 15:35:00 Rebecca Lazo [facility] VANCOMYCIN TROUGH 2021-07-06 15:35:00 Rebecca Lazo [facility] POCT GLUCOSE (AUTOMATED) 2021-07-06 12:37:00 Magali suly [facility] POCT GLUCOSE (AUTOMATED) 2021-07-06 12:37:00 [facility] POCT GLUCOSE (AUTOMATED) 2021-07-06 12:37:00 [facility] COMP. METABOLIC PANEL ([id number]) 2021-07-06 11:07:00 Magali suly [facility] COMP. METABOLIC PANEL ([id number]) 2021-07-06 11:07:00 Magali suly [facility] COMP. METABOLIC PANEL ([id number]) 2021-07-06 11:07:00 Gm De Los Santos [facility] SURGICAL PATHOLOGY EXAM 2021-07-05 23:42:00 Hector Robles ald E [facility] SURGICAL PATHOLOGY EXAM 2021-07-05 23:42:00 SlaHector woods ald E [facility] TOE AMPUTATION 2021-07-05 22:59:00 [facility] 2021-07-05 22:59:00 Slate[facility]ectorNomi [facility] PO[facility]SE (AUTOMATED) 2021-07-05 20:33:00 [facility] POCT GLUCOSE (AUTOMATED) 2021-07-05 20:33:00 [facility] POCT GLUCOSE (AUTOMATED) 2021-07-05 20:33:00 [facility] POCT GLUCOSE (AUTOMATED) 2021-07-05 16:17:00 [facility] POCT GLUCOSE (AUTOMATED) 2021-07-05 16:17:00 [facility] POCT GLUCOSE (AUTOMATED) 2021-07-05 16:17:00 [facility] MR FOOT RIGHT W WO CONTRAST 2021-07-05 14:37:38 [facility] 2021-07-05 14:37:38 Jt Bustamatne [facility] MR FOOT RIGHT W WO CONTRAST 2021-07-05 14:37:38 [facility] POCT GLUCOSE (AUTOMATED) 2021-07-05 12:12:00 [facility] POCT GLUCOSE (AUTOMATED) 2021-07-05 12:12:00 [facility] POCT GLUCOSE (AUTOMATED) 2021-07-05 12:12:00 [facility] MAGNESIUM 2021-07-05 10:00:00 Gm De Los Santos [facility] COMP. METABOLIC PANEL ([id number]) 2021-07-05 10:00:00 [facility] CBC WITH DIFF 2021-07-05 10:00:00 [facility] N-TERMINAL PRO-BNP 2021-07-05 10:00:00 [facility] MAGNESIUM 2021-07-05 10:00:00 Gm De Los Santos [facility] COMP. METABOLIC PANEL ([id number]) 2021-07-05 10:00:00 [facility] CBC WITH DIFF 2021-07-05 10:00:00 [facility] N-TERMINAL PRO-BNP 2021-07-05 10:00:00 [facility] MAGNESIUM 2021-07-05 10:00:00 Gm De Los Santos [facility] COMP. METABOLIC PANEL ([id number]) 2021-07-05 10:00:00 [facility] CBC WITH DIFF 2021-07-05 10:00:00 [facility]m [facility] N-TERMINAL PRO-BNP 2021-07-05 10:00:00 [facility] POCT GLUCOSE (AUTOMATED) 2021-07-05 00:13:00 [facility] POCT GLUCOSE (AUTOMATED) 2021-07-05 00:13:00 [facility] POCT GLUCOSE (AUTOMATED) 2021-07-05 00:13:00 [facility] POCT GLUCOSE (AUTOMATED) 2021-07-04 21:21:00 [facility] POCT GLUCOSE (AUTOMATED) 2021-07-04 21:21:00 Magali suly [facility] POCT GLUCOSE (AUTOMATED) 2021-07-04 21:21:00 Gm De Los Santos [facility] WOUND CULTURE 2021-07-04 19:28:00 Jo-Ann King [facility] WOUND CULTURE 2021-07-04 19:28:00 Jo-Ann King [facility] WOUND CULTURE 2021-07-04 19:28:00 Jo-Ann King [facility] POCT GLUCOSE (AUTOMATED) 2021-07-04 16:26:00 [facility] POCT GLUCOSE (AUTOMATED) 2021-07-04 16:26:00 [facility] POCT GLUCOSE (AUTOMATED) 2021-07-04 16:26:00 Mag[facility] VANCOMYCIN TROUGH 2021-07-04 15:39:00 Gm De Los Santos [facility] VANCOMYCIN TROUGH 2021-07-04 15:39:00 Gm De Los Santos [facility] VANCOMYCIN TROUGH 2021-07-04 15:39:00 Magali suly [facility] POCT GLUCOSE (AUTOMATED) 2021-07-04 12:21:00 [facility] POCT GLUCOSE (AUTOMATED) 2021-07-04 12:21:00 [facility] POCT GLUCOSE (AUTOMATED) 2021-07-04 12:21:00 Magali suly [facility] PHOSPHORUS 2021-07-04 10:12:00 Gm De Los Santos [facility] MAGNESIUM 2021-07-04 10:12:00 Magali suly [facility] COMP. METABOLIC PANEL ([id number]) 2021-07-04 10:12:00 [facility] CBC WITH DIFF 2021-07-04 10:12:00 Magali suly [facility] N-TERMINAL PRO-BNP 2021-07-04 10:12:00 Magali [facility] PHOSPHORUS 2021-07-04 10:12:00 Magali suly [facility] MAGNESIUM 2021-07-04 10:12:00 Magali [facility] COMP. METABOLIC PANEL ([id number]) 2021-07-04 10:12:00 Magali [facility] CBC WITH DIFF 2021-07-04 10:12:00 Gm De Los Santos [facility] N-TERMINAL PRO-BNP 2021-07-04 10:12:00 Magali [facility] PHOSPHORUS 2021-07-04 10:12:00 Magali suly [facility] MAGNESIUM 2021-07-04 10:12:00 Magali [facility] COMP. METABOLIC PANEL ([id number]) 2021-07-04 10:12:00 Magali [facility] CBC WITH DIFF 2021-07-04 10:12:00 Gm De Los Santos [facility] N-TERMINAL PRO-BNP 2021-07-04 10:12:00 [facility] POCT GLUCOSE (AUTOMATED) 2021-07-04 00:24:00 [facility] POCT GLUCOSE (AUTOMATED) 2021-07-04 00:24:00 [facility] POCT GLUCOSE (AUTOMATED) 2021-07-04 00:24:00 Mag[facility] POCT GLUCOSE (AUTOMATED) 2021-07-03 21:30:00 Magali [facility] POCT GLUCOSE (AUTOMATED) 2021-07-03 21:30:00 Magali [facility] POCT GLUCOSE (AUTOMATED) 2021-07-03 21:30:00 Magali [facility] POCT GLUCOSE (AUTOMATED) 2021-07-03 16:19:00 Magali [facility] POCT GLUCOSE (AUTOMATED) 2021-07-03 16:19:00 Mag[facility] POCT GLUCOSE (AUTOMATED) 2021-07-03 16:19:00 [facility] 2021-07-03 14:59:00 [facility] C-REACTIVE PROTEIN 2021-07-03 14:59:00 Mag[facility] VITAMIN D, 25-OH 2021-07-03 14:59:00 Gm De Los Santos Un [facility] VITAMIN B12, LEVEL 2021-07-03 14:59:00 [facility] C-REACTIVE PROTEIN 2021-07-03 14:59:00 Magali [facility] VITAMIN D, 25-OH 2021-07-03 14:59:00 Gm De Los Santos [facility] VITAMIN B12, LEVEL 2021-07-03 14:59:00 [facility] C-REACTIVE PROTEIN 2021-07-03 14:59:00 Magali [facility] VITAMIN D, 25-OH 2021-07-03 14:59:00 Gm De Los Santos [facility] IRON PANEL 2021-07-03 14:58:00 Gm De Los Santos [facility] PROCALCITONIN 2021-07-03 14:58:00 Gm De Los Santos [facility] IRON PANEL 2021-07-03 14:58:00 Gm De Los Santos [facility] PROCALCITONIN 2021-07-03 14:58:00 Gm De Los Santos [facility] IRON PANEL 2021-07-03 14:58:00 Gm De Los Santos [facility] PROCALCITONIN 2021-07-03 14:58:00 [facility] PROTHROMBIN TIME / INR 2021-07-03 14:57:00 Lasha [facility] PROTHROMBIN TIME / INR 2021-07-03 14:57:00 Lasha [facility] PROTHROMBIN TIME / INR 2021-07-03 14:57:00 Lasha De Los Santos [facility] CT FOOT RIGHT W CONTRAST 2021-07-03 14:46:22 Magali suly [facility] CT FOOT RIGHT W CONTRAST 2021-07-03 14:46:[address] [facility] [facility] CT FOOT RIGHT W CONTRAST 2021-07-03 14:46:22 Magali [facility] LOWER EXTREMITY ARTERIAL DUPLEX BILATERAL - BY VASCULAR LAB 2021-07-03 14:14:20 Mag[facility] LOWER EXTREMITY ARTERIAL DUPLEX BILATERAL - BY VASCULAR LAB 2021-07-03 14:14:20 Magali [facility] LOWER EXTREMITY ARTERIAL DUPLEX BILATERAL - BY VASCULAR LAB 2021-07-03 14:14:20 Mag[facility] DUPLEX VENOUS LEGS BILATERAL - BY VASCULAR LAB 2021-07-03 14:14:15 Mag[facility] DUPLEX VENOUS LEGS BILATERAL - BY VASCULAR LAB 2021-07-03 14:14:15 Mag[facility] DUPLEX VENOUS LEGS BILATERAL - BY VASCULAR LAB 2021-07-03 14:14:15 [facility] POCT GLUCOSE (AUTOMATED) 2021-07-03 12:36:00 [facility] POCT GLUCOSE (AUTOMATED) 2021-07-03 12:36:00 [facility] POCT GLUCOSE (AUTOMATED) 2021-07-03 12:36:00 [facility] URINALYSIS 2021-07-03 06:43:00 Wong Santo [facility] URINE CULTURE 2021-07-03 06:43:00 Wong Santo [facility] URINALYSIS 2021-07-03 06:43:00 [facility] URINE CULTURE 2021-07-03 06:43:00 Wong Santo [facility] URINALYSIS 2021-07-03 06:43:00 Wong Santo [facility] URINE CULTURE 2021-07-03 06:43:00 Wong Santo [facility] LACTIC ACID WHOLE BLOOD 2021-07-03 06:15:00 Wong Santo [facility] LACTIC ACID WHOLE BLOOD 2021-07-03 06:15:00 Wong Santo [facility] LACTIC ACID WHOLE BLOOD 2021-07-03 06:15:00 Wong Santo [facility] XR FOOT 3+ VW RIGHT 2021-07-03 06:08:43 Wong Santo [facility] XR FOOT 3+ VW RIGHT 2021-07-03 06:08:43 Wong Santo [facility] XR FOOT 3+ VW RIGHT 2021-07-03 06:08:43 Wong Santo [facility] PHOSPHORUS 2021-07-03 05:59:00 Gm De Los Santos [facility] CREATINE KINASE 2021-07-03 05:59:00 Gm De Los Santos [facility] URIC ACID 2021-07-03 05:59:00 Gm De Los Santos [facility] MAGNESIUM 2021-07-03 05:59:00 Gm De Los Santos [facility] FERRITIN SERUM 2021-07-03 05:59:00 Gm De Los Santos [facility] TROPONIN I 2021-07-03 05:59:00 [facility] THYROID STIMULATING HORMONE 2021-07-03 05:59:00 Gm De Los Santos [facility] COMP. METABOLIC PANEL ([id number]) 2021-07-03 05:59:00 [facility] [facility] LIPID PANEL (70146)(TOTAL CHOLESTEROL, TRIGLYCERIDES, HDL) 2021-07-03 05:59:00 Gm De Los Santos [facility] SEDIMENTATION RATE 2021-07-03 05:59:00 Gm De Los Santos [facility] CBC WITH DIFF 2021-07-03 05:59:00 Wong Santo [facility] GLYCOSYLATED HEMOGLOBIN (A1C) 2021-07-03 05:59:00 Magali [facility] N-TERMINAL PRO-BNP 2021-07-03 05:59:00 Magali [facility] PHOSPHORUS 2021-07-03 05:59:00 Magali [facility] CREATINE KINASE 2021-07-03 05:59:00 Gm De Los Santos [facility] URIC ACID 2021-07-03 05:59:00 Gm De Los Santos [facility] MAGNESIUM 2021-07-03 05:59:00 Magali [facility] FERRITIN SERUM 2021-07-03 05:59:00 Magali [facility] TROPONIN I 2021-07-03 05:59:00 Wong Santo [facility] THYROID STIMULATING HORMONE 2021-07-03 05:59:00 Magali [facility] COMP. METABOLIC PANEL (11257) 2021-07-03 05:59:00 Wong Santo [facility] LIPID PANEL (52041)(TOTAL CHOLESTEROL, TRIGLYCERIDES, HDL) 2021-07-03 05:59:00 Magali [facility] SEDIMENTATION RATE 2021-07-03 05:59:00 Magali [facility] CBC WITH DIFF 2021-07-03 05:59:00 Wong Santo [facility] GLYCOSYLATED HEMOGLOBIN (A1C) 2021-07-03 05:59:00 Magali [facility] N-TERMINAL PRO-BNP 2021-07-03 05:59:00 Magali [facility] PHOSPHORUS 2021-07-03 05:59:00 Magali [facility] CREATINE KINASE 2021-07-03 05:59:00 Magali suly [facility] URIC ACID 2021-07-03 05:59:00 Magali, Adnan [facility] MAGNESIUM 2021-07-03 05:59:00 Gm De Los Santos [facility] FERRITIN SERUM 2021-07-03 05:59:00 Gm De Los Santos [facility] TROPONIN I 2021-07-03 05:59:00 Wong Santo [facility] THYROID STIMULATING HORMONE 2021-07-03 05:59:00 Magali suly [facility] COMP. METABOLIC PANEL (28739) 2021-07-03 05:59:00 Wong Santo [facility] LIPID PANEL (50058)(TOTAL CHOLESTEROL, TRIGLYCERIDES, HDL) 2021-07-03 05:59:00 Gm De Los Santos [facility] SEDIMENTATION RATE 2021-07-03 05:59:00 Magali [facility] CBC WITH DIFF 2021-07-03 05:59:00 Wong Santo [facility] GLYCOSYLATED HEMOGLOBIN (A1C) 2021-07-03 05:59:00 Magali [facility] N-TERMINAL PRO-BNP 2021-07-03 05:59:00 Gm De Los Santos [facility] BLOOD CULTURE SCREEN 2021-07-03 05:58:00 Wong Santo [facility] COVID-19 (ID NOW RAPID TESTING) 2021-07-03 05:58:00 Wong Santo [facility] LAB ONLY COVID INTERPRETATION 2021-07-03 05:58:00 Wong Santo [facility] BLOOD CULTURE SCREEN 2021-07-03 05:58:00 Wong Santo [facility] COVID-19 (ID NOW RAPID TESTING) 2021-07-03 05:58:00 Wong Santo [facility] LAB ONLY COVID INTERPRETATION 2021-07-03 05:58:00 Wong Santo [facility] BLOOD CULTURE SCREEN 2021-07-03 05:58:00 Wong Santo [facility] COVID-19 (ID NOW RAPID TESTING) 2021-07-03 05:58:00 Wong Santo [facility] LAB ONLY COVID INTERPRETATION 2021-07-03 05:58:00 Wong Santo [facility] EKG-12 LEAD 2021-07-03 05:40:45 Gm De Los Santos [facility] EKG-12 LEAD 2021-07-03 05:40:45 Gm De Los Santos [facility] EKG-12 LEAD 2021-07-03 05:40:45 Gm De Los Santos [facility] NOTICE OF PRIVACY PRACTICES 2021-07-03 05:30:04 Doctor Unassigned, [place] [facility] NOTICE OF PRIVACY PRACTICES 2021-07-03 05:30:04 Doctor Unassigned, [place] [facility] NOTICE OF PRIVACY PRACTICES 2021-07-03 05:30:04 Doctor Unassigned, [place] [facility] CONSENT/REFUSAL FOR DIAGNOSIS AND TREATMENT 2021-07-03 05:29:41 Doctor Unassigned, [place] [facility] CONSENT/REFUSAL FOR DIAGNOSIS AND TREATMENT 2021-07-03 05:29:41 Doctor Unassigned, [place] [facility] CONSENT/REFUSAL FOR DIAGNOSIS AND TREATMENT 2021-07-03 05:29:41 Doctor Unassigned, [place] [facility] [address] Ecg Routine Ecg W/least 12 Lds W/i r 2017-01-04 00:00:00 Plan of Care Planned Activity Planned Date Details Comments Source Goal Plan of Care Note [code = 55877-0] Goal Plan of Care Note [code = 91617-3] Goal Plan of Care Note [code = 18057-9] Goal Plan of Care Note [code = 36028-2] Goal Plan of Care Note [code = 49434-9] Goal Plan of Care Note [code = 74682-1] Goal Plan of Care Note [code = 71548-5] Goal Plan of Care Note [code = 19770-1] Goal Plan of Care Note [code = 00448-4] Goal Plan of Care Note [code = 04450-1] Goal Plan of Care Note [code = 92092-1] Goal Plan of Care Note [code = 93291-2] Goal Plan of Care Note [code = 92683-3] Goal Plan of Care Note [code = 14549-6] Goal Plan of Care Note [code = 12679-8] Goal Plan of Care Note [code = 88854-4] Goal Plan of Care Note [code = 74264-9] Goal Plan of Care Note [code = 10615-8] Goal Plan of Care Note [code = 75373-3] Goal Plan of Care Note [code = 40282-1] Goal Plan of Care Note [code = 45292-3] Goal Plan of Care Note [code = 15421-0] Goal Plan of Care Note [code = 09589-2] Goal Plan of Care Note [code = 28922-2] Goal Plan of Care Note [code = 62810-2] Goal Plan of Care Note [code = 26274-1] Goal Plan of Care Note [code = 63130-7] Goal Plan of Care Note [code = 92216-5] Goal Plan of Care Note [code = 67731-4] Goal Plan of Care Note [code = 06904-9] Goal Plan of Care Note [code = 01451-5] Goal Plan of Care Note [code = 83147-6] Goal Plan of Care Note [code = 89175-4] Goal Plan of Care Note [code = 75433-2] Encounters Start Date/Time End Date/Time Encounter Type Admission Type Attending [facility] Care Department Encounter ID Source 2024-03-17 08:00:00 2024-03-17 08:00:00 Outpatient QUINN GAVIRIA [id number] Sonia margarette 2024-03-10 14:25:00 2024-03-10 14:25:00 Outpatient BEATA CHEN [id number] Sonia Orr 2024-01-02 11:30:00 2024-01-02 11:30:00 Outpatient MARQUES THOMAS [id number] Sonia Orr 2023-12-12 16:30:00 2023-12-12 16:30:00 Outpatient SONIA ALCALA [id number] Sonia Orr 2023-12-08 00:00:00 2023-12-08 00:00:00 Outpatient MARQUES THOMAS [id number] Sonia Jacobybenrique 2023-11-30 11:45:00 2023-11-30 11:45:00 Outpatient PREZAS, MARQUES ALCALA [id number] Sonia Orr 2023-11-19 00:00:00 2023-11-19 00:00:00 Outpatient PREZAS, MARQUES ALCALA [id number] Sonia Jacobybenrique 2023-11-19 00:00:00 2023-11-19 00:00:00 Outpatient PREZAS, MARQUES ALCALA [id number] Sonia Jacobybenrique 2023-11-16 09:05:00 2023-11-16 09:05:00 Outpatient LAB90 SONIA LOCKHARTSEY [id number] Sonia Jacobybenrique 2023-11-16 08:15:00 2023-11-16 08:15:00 Outpatient PREZAS, MARQUES ALCALA SONIA [id number] [facility] 2023-10-24 14:15:00 2023-10-24 14:15:00 Outpatient PREZAS, MARQUES ALCALA SONIA [id number] [facility] 2023-09-17 00:00:00 2023-09-17 00:00:00 Outpatient PREZAS, MARQUES ALCALA SONIA [id number] [facility] 2023-08-31 00:00:00 2023-08-31 00:00:00 Outpatient PREZAS, MARQUES ALCALA SONIA [id number] [facility] 2023-08-09 00:00:00 2023-08-09 00:00:00 Outpatient PREZAS, MARQUES ALCALA SONIA [id number] [facility] 2023-07-19 00:00:00 2023-07-19 00:00:00 Outpatient PREZAS, MARQUES ALCALA SONIA [id number] [facility] 2023-07-08 00:00:00 2023-07-08 00:00:00 Outpatient PREZAS, MARQUES SONIA ALCALA [id number] [facility] 2023-07-05 00:00:00 2023-07-05 00:00:00 Outpatient PREZAS, MARQUES SONIA ALCALA [id number] [facility] 2023-05-15 09:54:00 2023-05-15 09:54:00 Outpatient SFA SFA [id number] Francisco Foster 2023-05-08 14:38:20 2023-05-08 14:38:20 Outpatient SFA SFA [id number] Francisco Foster 2023-04-13 00:00:00 2023-04-13 00:00:00 Outpatient PREZAS, MARQUES SONIA ALCALA [id number] [facility] 2023-04-10 00:00:00 2023-04-10 00:00:00 Outpatient PREZAS, MARQUES SONIA ALCALA [id number] [facility] 2023-04-02 00:00:00 2023-04-02 00:00:00 Outpatient PREZAS, MARQUES SONIA ALCALA [id number] [facility] 2023-03-26 16:45:00 2023-03-26 16:45:00 Outpatient PREZAS, MARQUES SONIA ALCALA [id number] [facility] 2023-03-26 00:00:00 2023-03-26 00:00:00 Outpatient PREZAS, MARQUES SONIA ALCALA [id number] [facility] 2023-03-22 00:00:00 2023-03-22 00:00:00 Outpatient PREZAS, MARQUES SONIA ALCALA [id number] [facility] 2023-03-22 00:00:00 2023-03-22 00:00:00 Outpatient PREZAS, MARQUES SONIA ALCALA [id number] [facility] 2023-03-20 08:05:00 2023-03-20 08:05:00 Outpatient LAB90 SONIA ALCALA [id number] [facility] 2023-03-19 09:00:00 2023-03-19 09:00:00 Outpatient PREZAS, MARQUES SONIA ALCALA [id number] [facility] 2023-02-12 00:00:00 2023-02-12 00:00:00 Transition of Care Rebecca Holloway [id number] 350.1.13.10 4.2.7.2.686 [id number] [facility] 2023-01-30 18:09:00 2023-02-09 15:20:00 Inpatient U JOAN FAGAN [facility] [id number] [facility] 2023-01-30 18:09:00 2023-02-09 15:20:00 Hospital Encounter Bright, Micah Walker, Jaz Araujo, Gianluca Fagan, Joan [facility] 1.2.840.114 350.1.13.10 4.2.7.2.686 [id number] [facility] 2023-02-09 00:00:00 2023-02-09 00:00:00 Refill Diego Rogers [facility] [id number] 350.1.13.10 4.2.7.2.686 [id number] [facility] 2023-02-02 14:45:00 2023-02-02 14:45:00 Outpatient MARQUES THOMAS [id number] Sonia [facility] 2023-01-29 00:00:00 2023-01-29 00:00:00 Outpatient MARQUES THOMAS [id number] [facility] 2023-01-08 14:45:00 2023-01-08 14:45:00 Outpatient MARQUES THOMAS [id number] [facility] 2022-12-28 15:15:00 2022-12-28 15:15:00 Outpatient SONIA ALCALA [id number] Sonia [facility] 2022-12-21 15:15:00 2022-12-21 15:15:00 Outpatient SONIA ALCALA [id number] [facility] 2022-12-21 13:45:00 2022-12-21 13:45:00 Outpatient MARQUES THOMAS [id number] [facility] 2022-12-18 00:00:00 2022-12-18 00:00:00 Outpatient PREZAMARQUES Arthur [id number] Sonia Jacobenrique 2022-12-13 10:00:00 2022-12-13 10:00:00 Outpatient MARQUES THOMAS [id number] Sonia Orr 2022-12-06 14:30:00 2022-12-06 14:30:00 Outpatient PREZAMARQUES Arthur [id number] [facility] 2022-12-06 14:30:00 2022-12-06 14:30:00 Outpatient PREZAMARQUES Arthur [id number] [facility] 2022-12-06 11:15:00 2022-12-06 11:15:00 Outpatient GRIFFINZAMARQUES Arthur [id number] [facility] 2022-11-22 08:00:00 2022-11-22 08:00:00 Outpatient TRAVIS ASHTON [id number] [facility] 2022-09-25 17:44:22 2022-09-25 17:44:22 Outpatient SFA SFA [id number] Francisco Foster 2022-09-14 09:47:26 2022-09-14 09:47:26 Outpatient SFA SFA [id number] Francisco Foster 2022-09-09 11:01:13 2022-09-09 11:01:13 Outpatient SFA SFA [id number] Francisco Foster 2022-09-09 00:00:00 2022-09-09 00:00:00 Outpatient Visit [id number] 0437-09-06 00:00:00 2022-06-13 00:00:00 Outpatient Visit [id number] 2021-07-11 00:00:00 2021-07-11 00:00:00 Transition of Care Aurora Goins 1.2.840.114 350.1.13.10 4.2.7.2.686 [id number] [facility] 2021-07-03 00:38:00 2021-07-08 12:55:00 Hospital Encounter GalWong buenrostro, Chandler Morales [facility] 1.2.840.114 350.1.13.10 4.2.7.2.686 [id number] [facility] 2021-07-07 07:30:00 2021-07-07 09:15:00 Surgery Nomi Robles E [facility] [place] 1.2.840.114 350.1.13.10 4.2.7.2.686 [id number] [facility] 2021-07-05 17:20:00 2021-07-05 18:24:00 Surgery SlaNomi woods [facility] 1.2.840.114 350.1.13.10 4.2.7.2.686 [id number] [facility] 2021-07-03 00:27:00 2021-07-03 00:27:00 Emergency X [facility] ERT [id number] [facility] Results Test Description Test Time Test Comments Results Result Co mments Source [facility] GLUCOSE (AUTOMATED)2023-02-09 12:43:00* Test Item Value Reference Range Interpretation Comme nts POCT GLU (test code = 0552422483) 120 mg/dL 70-110 H Lab Interpretation (test cod e = 69815-0) Abnormal [facility] GLUCOSE (AUTOMATED)2023-02-09 01:28:05* Test Item Value Reference Range Interpretation Comme nts POCT GLU (test code = 0670175711) 267 mg/dL 70-110 H Lab Interpretation (test cod e = 18705-2) Abnormal [facility] GLUCOSE (AUTOMATED)2023-02-08 22:01:26* Test Item Value Reference Range Interpretation Comme nts POCT GLU (test code = 4330946932) 217 mg/dL 70-110 H Lab Interpretation (test cod e = 22599-6) Abnormal [facility] GLUCOSE (AUTOMATED)2023-02-08 18:16:43* Test Item Value Reference Range Interpretation Comme nts POCT GLU (test code = 6345792794) 129 mg/dL 70-110 H Lab Interpretation (test cod e = 46683-9) Abnormal [facility] GLUCOSE (AUTOMATED)2023-02-08 13:23:22* Test Item Value Reference Range Interpretation Comme nts POCT GLU (test code = 3805209248) 125 mg/dL 70-110 H Lab Interpretation (test cod e = 43588-5) Abnormal [facility] GLUCOSE (AUTOMATED)2023-02-08 01:12:01* Test Item Value Reference Range Interpretation Comme nts POCT GLU (test code = 0658951051) 207 mg/dL 70-110 H Lab Interpretation (test cod e = 97914-6) Abnormal [facility] GLUCOSE (AUTOMATED)2023-02-07 23:02:17* Test Item Value Reference Range Interpretation Comme nts POCT GLU (test code = 8381712474) 212 mg/dL 70-110 H Lab Interpretation (test cod e = 09653-0) Abnormal [facility] GLUCOSE (AUTOMATED)2023-02-07 13:44:50* Test Item Value Reference Range Interpretation Comme nts POCT GLU (test code = 1050390233) 137 mg/dL 70-110 H Lab Interpretation (test cod e = 53252-0) Abnormal [facility] GLUCOSE (AUTOMATED)2023-02-07 01:34:23* Test Item Value Reference Range Interpretation Comme nts POCT GLU (test code = 6140195996) 182 mg/dL 70-110 H Lab Interpretation (test cod e = 97938-8) Abnormal [facility] GLUCOSE (AUTOMATED)2023-02-06 21:35:48* Test Item Value Reference Range Interpretation Comme nts POCT GLU (test code = 6713514712) 208 mg/dL 70-110 H Lab Interpretation (test cod e = 22732-2) Abnormal [facility] GLUCOSE (AUTOMATED)2023-02-06 16:49:01* Test Item Value Reference Range Interpretation Comme nts POCT GLU (test code = 6843504843) 149 mg/dL 70-110 H Lab Interpretation (test cod e = 47864-3) Abnormal [facility] GLUCOSE (AUTOMATED)2023-02-06 12:49:40* Test Item Value Reference Range Interpretation Comme nts POCT GLU (test code = 1063021249) 129 mg/dL 70-110 H Lab Interpretation (test cod e = 03857-9) Abnormal [facility] GLUCOSE (AUTOMATED)2023-02-06 01:32:23* Test Item Value Reference Range Interpretation Comme nts POCT GLU (test code = 1591271028) 218 mg/dL 70-110 H Lab Interpretation (test cod e = 09691-2) Abnormal [facility] GLUCOSE (AUTOMATED)2023-02-05 21:16:54* Test Item Value Reference Range Interpretation Comme nts POCT GLU (test code = 0429579967) 196 mg/dL 70-110 H Lab Interpretation (test cod e = 40277-6) Abnormal [facility] GLUCOSE (AUTOMATED)2023-02-05 16:28:07* Test Item Value Reference Range Interpretation Comme nts POCT GLU (test code = 0384649472) 141 mg/dL 70-110 H Lab Interpretation (test cod e = 02314-7) Abnormal [facility] GLUCOSE (AUTOMATED)2023-02-05 13:16:58* Test Item Value Reference Range Interpretation Comme nts POCT GLU (test code = 8535493626) 111 mg/dL 70-110 H Lab Interpretation (test cod e = 01970-0) Abnormal [facility] GLUCOSE (AUTOMATED)2023-02-05 02:08:45* Test Item Value Reference Range Interpretation Comme nts POCT GLU (test code = 4828026126) 186 mg/dL 70-110 H Lab Interpretation (test cod e = 64685-4) Abnormal [facility] GLUCOSE (AUTOMATED)2023-02-04 21:56:12* Test Item Value Reference Range Interpretation Comme nts POCT GLU (test code = 3039808967) 169 mg/dL 70-110 H Lab Interpretation (test cod e = 97207-0) Abnormal [facility] GLUCOSE (AUTOMATED)2023-02-04 17:09:55* Test Item Value Reference Range Interpretation Comme nts POCT GLU (test code = 8696423717) 147 mg/dL 70-110 H Lab Interpretation (test cod e = 18745-0) [facility] 12:44:04* Test Item Value Reference Range Interpretation Comme nts POCT GLU (test code = 4379740732) 134 mg/dL 70-110 H Lab Interpretation (test cod e = 12851-6) [facility]2023-02-04 01:35:35* Test Item Value Reference Range Interpretation Comme nts POCT GLU (test code = 8889599668) 165 mg/dL 70-110 H Lab Interpretation (test cod e = 67041-9) Abnormal [facility] GLUCOSE (AUTOMATED)2023-02-03 22:24:21* Test Item Value Reference Range Interpretation Comme nts POCT GLU (test code = 7421235933) 119 mg/dL 70-110 H Lab Interpretation (test cod e = 99041-8) [facility]normal [facility]23-02-03 16:50:54* Test Item Value Reference Range Interpretation Comme nts POCT GLU (test code = 6533764916) 225 mg/dL 70-110 H Lab Interpretation (test cod e = 45355-7) [facility]23-[facility]-03 13:20:55* Test Item Value Reference Range Interpretation Comme nts POCT GLU (test code = 1914280004) 124 mg/dL 70-110 H Lab Interpretation (test cod e = 55741-3) [facility]normal [facility]2023-02-03 02:16:40* Test Item Value Reference Range Interpretation Comme nts POCT GLU (test code = 0093280835) 150 mg/dL 70-110 H Lab Interpretation (test cod e = 19773-0) Abnormal [facility] GLUCOSE (AUTOMATED)2023-02-02 22:16:00* Test Item Value Reference Range Interpretation Comme nts POCT GLU (test code = 3102127166) 225 mg/dL 70-110 H Lab Interpretation (test cod e = 96950-7) Abnormal [facility] GLUCOSE (AUTOMATED)2023-02-02 17:16:51* Test Item Value Reference Range Interpretation Comme nts POCT GLU (test code = 8338736965) 175 mg/dL 70-110 H Lab Interpretation (test cod e = 37202-7) Abnormal [facility] GLUCOSE (AUTOMATED)2023-02-02 12:37:49* Test Item Value Reference Range Interpretation Comme nts POCT GLU (test code = 4910098474) 130 mg/dL 70-110 H Lab Interpretation (test cod e = 52200-3) Abnormal [facility] GLUCOSE (AUTOMATED)2023-02-02 01:15:10* Test Item Value Reference Range Interpretation Comme nts POCT GLU (test code = 0904800508) 183 mg/dL 70-110 H Lab Interpretation (test cod e = 82982-8) Abnormal [facility] GLUCOSE (AUTOMATED)2023-02-01 21:59:52* Test Item Value Reference Range Interpretation Comme nts POCT GLU (test code = 1536466262) 118 mg/dL 70-110 H Lab Interpretation (test cod e = 59605-9) Abnormal [facility] GLUCOSE (AUTOMATED)2023-02-01 16:21:37* Test Item Value Reference Range Interpretation Comme nts POCT GLU (test code = 7734923209) 171 mg/dL 70-110 H Lab Interpretation (test cod e = 84828-1) Abnormal [facility] GLUCOSE (AUTOMATED)2023-02-01 12:51:51* Test Item Value Reference Range Interpretation Comme nts POCT GLU (test code = 0691674240) 111 mg/dL 70-110 H Lab Interpretation (test cod e = 46682-7) Abnormal [facility] GLUCOSE (AUTOMATED)2023-02-01 01:49:19* Test Item Value Reference Range Interpretation Comme nts POCT GLU (test code = 7470729168) 131 mg/dL 70-110 H Lab Interpretation (test cod e = 12114-8) Abnormal [facility] [id number] 23:05:19* Test Item Value Reference Range Interpretation Comme nts FREE T4 (test code = 3916708319) 1.17 See_Comment [Automated [employer] ge] The system which generated this result transmitted reference range: 0.78 - 2.20 ng/dL:. The reference range was not used to interpret this result as normal/abnormal. Lab Interpretation (test code = 00006-6) Normal [facility] GLUCOSE (AUTOMATED)2023-01-31 21:16:44* Test Item Value Reference Range Interpretation Comme nts POCT GLU (test code = 4003482255) 139 mg/dL 70-110 H Lab Interpretation (test cod e = 84595-4) Abnormal [facility] GLUCOSE (AUTOMATED)2023-01-31 16:44:15* Test Item Value Reference Range Interpretation Comme nts POCT GLU (test code = 8767337646) 107 mg/dL 70-110 Lab Interpretation (test cod e = 79580-7) Normal [facility] GLUCOSE (AUTOMATED)2023-01-31 12:56:40* Test Item Value Reference Range Interpretation Comme nts POCT GLU (test code = 7353889155) 110 mg/dL 70-110 Lab Interpretation (test cod e = 86833-1) [facility] [id number] 06:15:48* Test Item Value Reference Range Interpretation Comme nts FERRITIN (test code = 1848055971) 82.1 ng/mL 18.0-464.0 BRYSON (test code = BRYSON) Biotin has been reported to cause a negative bias, interpret results relative to patient's use of biotin. Lab Interpretation (test code = 93239-1) [facility] [id number] 05:47:28* Test Item Value Reference Range Interpretation Comme nts IRON (test code = 5919333674) 30 ug/dL 50-160 L TIBC (test code = 0443938157) 294 ug/dL 250-410 % FE SAT (test code = 1951425472) 10 % 20-50 L Lab Interpretation (test cod e = 36709-2) [facility]23-[facility]-26 05:38:19* Test Item Value Reference Range Interpretation Comme nts PHOSPHORUS (test code = 0682209929) 5.1 mg/dL 2.5-5.0 H Lab Interpretation (test cod e = 77831-7) Abnormal [facility] [id number] 00:26:23* Test Item Value Reference Range Interpretation Comme nts TROPONIN I (test code = 8703001956) 0.016 ng/mL <=0.034 BRYSON (test code = BRYSON) Reference (Normal) Range (defined by the 99th percentile reference [...] patient's use of biotin. Lab Interpretation (test code = 01506-3) Normal [facility] [id number] 00:23:01* Test Item Value Reference Range Interpretation Comme nts NT-proBNP (test code = 6706123294) 2150 pg/mL <=125 H BRYSON (test code = BRYSON) Biotin has been reported to cause a negative bias, interpret results relative to patient's use of biotin. Lab Interpretation (test code = 71320-5) Abnormal [facility]OL[facility] PAN[facility] (76815)2023-01-31 00:14:59* Test Item Value Reference Range Interpretation Comme nts NA (test code = 8107865133) 139 mmol/L 135-145 K (test code = 4947064517) 5.3 mmol/L 3.5-5.0 H CL (test code = 5014417551) 111 mmol/L 98-108 H CO2 TOTAL (test code = 5412709551) 23 mmol/L 23-31 AGAP (test code = 7614798423) 5 2-16 BUN (test code = 1203752672) 37 mg/dL 7-23 H GLUCOSE (test code = 6840166644) 100 mg/dL 70-110 CREATININE (test code = 7191272545) 1.98 mg/dL 0.60-1.25 H TOTAL BILI (test code = 3051491354) 0.4 mg/dL 0.1-1.1 CALCIUM (test code = 5427251149) 8.7 mg/dL 8.6-10.6 T PROTEIN (test code = 8283373205) 6.6 g/dL 6.3-8.2 ALBUMIN (test code = 6573559365) 3.4 g/dL 3.5-5.0 L ALK PHOS (test code = 9626655673) 127 U/L 34-122 H ALTv (test code = 1742-6) 28 U/L 5-50 AST(SGOT) (test code = 7762436532) 34 U/L 13-40 eGFR (test code = 7551758932) 35.0 mL/min/1.73m2 BRYSON (test code = BRYSON) Association of [...] or abnormalities in imaging tests). Lab Interpretation (test code = 47253-0) Abnormal [facility] WITH [id number] 00:04:02* Test Item Value Reference Range Interpretation Comme nts WBC (test code = 6690-2) 9.27 See_Comment [Automated messa ge] The system which generated this result transmitted reference range: 4.20 - 10.70 10*3/?L. The reference range was not used to interpret this result as normal/abnormal. RBC (test code = 789-8) 3.15 See_Comment L [Automated messa ge] The system which generated this result transmitted reference range: 4.26 - 5.52 10*6/?L. The reference range was not used to interpret this result as normal/abnormal. HGB (test code = 718-7) 9.4 g/dL 12.2-16.4 L HCT (test code = 4544-3) 30.0 % 38.4-49.3 L MCV (test code = 787-2) 95.2 fL 81.7-95.6 MCH (test code = 785-6) 29.8 pg 26.1-32.7 MCHC (test code = 786-4) 31.3 g/dL 31.2-35.0 RDW-SD (test code = 60848-6) 49.5 fL 38.5-51.6 RDW-CV (test code = 788-0) 14.4 % 12.1-15.4 PLT (test code = 777-3) 248 See_Comment [Automated messa ge] The system which generated this result transmitted reference range: 150 - 328 10*3/?L. The reference range was not used to interpret this result as normal/abnormal. MPV (test code = 33678-4) 11.9 fL 9.8-13.0 NRBC/100 WBC (test code = 0310335042) 0.0 See_Comment [Automated Atonarp ssage] The system which generated this result transmitted reference range: 0.0 - 10.0 /100 WBCs. The reference range was not used to interpret this result as normal/abnormal. NRBC x10^3 (test code = 9358136000) See_Comment [Automated messa ge] The system which generated this result transmitted reference range: 10*3/?L. The reference range was not used to interpret this result as normal/abnormal. GRAN MAT (NEUT) % (test code = 770-8) 68.5 % IMM GRAN % (test code = 2836879782) 0.40 % LYMPH % (test code = 736-9) 17.8 % MONO % (test code = 5905-5) 10.4 % EOS % (test code = 713-8) 2.4 % BASO % (test code = 706-2) 0.5 % GRAN MAT x10^3(ANC) (test code = 9997996343) 6.35 10*3/uL 1.99-6.95 IMM GRAN x10^3 (test code = 1336941122) 0.04 10*3/uL 0.00-0.06 LYMPH x10^3 (test code = 731-0) 1.65 10*3/uL 1.09-3.23 MONO x10^3 (test code = 742-7) 0.96 10*3/uL 0.36-1.02 EOS x10^3 (test code = 711-2) 0.22 10*3/uL 0.06-0.53 BASO x10^3 (test code = 704-7) 0.05 10*3/uL 0.01-0.09 Lab Interpretation (test code = 74036-3) [facility] [id number] 04:29:13* Test Item Value Reference Range Interpretation Comme nts HEMOGLOBIN A1c (test code = 47111) 9.6 % 4.2-5.6 H [employer] GUIDELINES FOR HGB A1C: PREDIABETES/INCREASED RISK . . . . . . . 5.7-6.4% DIAGNOSIS OF DIABETES . . . . . . . . . >=6.5% WITH CONFIRMATION OR APPROPRIATE SYMPTOMS NOTE: ASSAY MAY BE AFFECTED BY HEMOGLOBINOPATHIES (SICKLE CELL ANEMIA, S-C DISEASE, OTHERS) OR ARTIFICIALLY LOWERED BY DECREASED RED CELL SURVIVAL (HEMOLYTIC ANEMIAS, BLOOD LOSS, ETC.). CONSIDER ALTERNATE TESTING OR LABORATORY CONSULTATION. LIPID [id number] 02:58:52* Test Item Value Reference Range Interpretation Comme nts CHOLESTEROL (test code = 2210) 224 MG/DL <200 H TRIGLYCERIDES (test code = 2232) 174 MG/DL <150 H HDL CHOLESTEROL (test code = 2220) 45 MG/DL >39 CALC LDL CHOL (test code = 2237) 148 MG/DL <100 H NOTE: CALCULATED LDL IS BASED ON ANA-BURGESS METHOD WHICHINCLUDES ADJUSTABLE TRIGLYCERIDE:VLDL CHOLESTEROL RATIO.THIS FACTOR VARIES BY MEASURED TRIGLYCERIDE AND NON-HDLCHOLESTEROL CONCENTRATIONS WITH INCREASED CALCULATED LDL SEENIN HIGHER TRIGLYCERIDE OR LOWER NON-HDL SPECIMENS. FOR MOREINFORMATION, SEE CLIENT ANNOUNCEMENT AT [email or web address] RISK RATIO LDL/HDL (test code = 2238) 3.29 RATIO <3.55 UNLESS OTHERW ISE INDICATED, ALL TESTING PERFORMED [facility] [address] [place] [address] [employer] CHIEF: NIKKIE CRANDALL M.D. CLIA NUMBER [id number] [facility] [place]. [id number] HEMOGLOBIN [id number] 00:00:00* Test Item Value Reference Range Interpretation Comme nts HEMOGLOBIN A1c (test code = 35100) 9.6 % HEMOGLOBIN [id number] 00:00:00* Test Item Value Reference Range Interpretation Comme nts HEMOGLOBIN A1c (test code = 53552) 9.6 % HEMOGLOBIN [id number] 00:00:00* Test Item Value Reference Range Interpretation Comme nts HEMOGLOBIN A1c (test code = 85966) 9.6 % LIPID [id number] 00:00:00* Test Item Value Reference Range Interpretation Comme nts CHOLESTEROL (test code = 2210) 224 MG/DL TRIGLYCERIDES (test code = 2232) 174 MG/DL HDL CHOLESTEROL (test code = 2220) 45 MG/DL CALC LDL CHOL (test code = 2237) 148 MG/DL RISK RATIO LDL/HDL (test cod e = 2238) 3.29 RATIO LIPID [id number] 00:00:00* Test Item Value Reference Range Interpretation Comme nts CHOLESTEROL (test code = 2210) 224 MG/DL TRIGLYCERIDES (test code = 2232) 174 MG/DL HDL CHOLESTEROL (test code = 2220) 45 MG/DL CALC LDL CHOL (test code = 2237) 148 MG/DL RISK RATIO LDL/HDL (test cod e = 2238) 3.29 RATIO LIPID [id number] 23:49:07* Test Item Value Reference Range Interpretation Comme nts CHOLESTEROL (test code = 2210) 213 MG/DL <200 H TRIGLYCERIDES (test code = 2232) 169 MG/DL <150 H HDL CHOLESTEROL (test code = 2220) 49 MG/DL >39 CALC LDL CHOL (test code = 2237) 133 MG/DL <100 H NOTE: CALCULATED LDL IS BASED ON ANA-BURGESS METHOD WHICHINCLUDES ADJUSTABLE TRIGLYCERIDE:VLDL CHOLESTEROL RATIO.THIS FACTOR VARIES BY MEASURED TRIGLYCERIDE AND NON-HDLCHOLESTEROL CONCENTRATIONS WITH INCREASED CALCULATED LDL SEENIN HIGHER TRIGLYCERIDE OR LOWER NON-HDL SPECIMENS. FOR MOREINFORMATION, SEE CLIENT ANNOUNCEMENT AT [email or web address] RISK RATIO LDL/HDL (test code = 2238) 2.71 RATIO <3.55 COMPREHENSIVE METABOLIC [id number] 23:49:07* Test Item Value Reference Range Interpretation Comme nts GLUCOSE (test code = 2217) 259 MG/DL 70-99 H BUN (test code = 2208) 19 MG/DL 6-20 CREATININE (test code = 2214) 1.06 MG/DL 0.80-1.40 eGFR (2020 CKD-EPI) (test code = 62793) 82 ML/MIN/1.73 >60 CALC BUN/CREAT (test code = 2235) 18 RATIO 6-28 SODIUM (test code = 2231) 140 MEQ/L 133-146 POTASSIUM (test code = 2228) 4.3 MEQ/L 3.5-5.4 CHLORIDE (test code = 2215) 103 MEQ/L 95-107 CARBON DIOXIDE (test code = 2206) 24 MEQ/L 19-31 CALCIUM (test code = 2209) 9.3 MG/DL 8.5-10.5 PROTEIN, TOTAL (test code = 2229) 6.7 G/DL 6.1-8.3 ALBUMIN (test code = 2201) 3.7 G/DL 3.5-5.2 CALC GLOBULIN (test code = 2240) 3.0 G/DL 1.9-3.7 CALC A/G RATIO (test code = 2234) 1.2 RATIO 1.0-2.6 BILIRUBIN, TOTAL (test code = 2207) 0.3 MG/DL See_Comment [Automated me ssage] The system which generated this result transmitted reference range: <=1.2. The reference range was not used to interpret this result as normal/abnormal. ALKALINE PHOSPHATASE (test code = 2204) 109 U/L 40-123 AST (test code = 2218) 20 U/L 9-50 ALT (test code = 2219) 21 U/L 5-50 UNLESS OTHERWISE INDICATED, ALL TESTING PERFORMED [facility] [employer] [address] [place] [address] [employer] CHIEF: NIKKIE CRANDALL M.D. [place] NUMBER [id number] [facility] [place]. [id number] HEMOGLOBIN [id number] 05:27:41* Test Item Value Reference Range Interpretation Comme nts HEMOGLOBIN A1c (test code = 70452) 9.9 % 4.2-5.6 H [employer] GUIDELINES FOR HGB A1C: PREDIABETES/INCREASED RISK . . . . . . . 5.7-6.4% DIAGNOSIS OF DIABETES . . . . . . . . . >=6.5% WITH CONFIRMATION OR APPROPRIATE SYMPTOMS NOTE: ASSAY MAY BE AFFECTED BY HEMOGLOBINOPATHIES (SICKLE CELL ANEMIA, S-C DISEASE, OTHERS) OR ARTIFICIALLY LOWERED BY DECREASED RED CELL SURVIVAL (HEMOLYTIC ANEMIAS, BLOOD LOSS, ETC.). CONSIDER ALTERNATE TESTING OR LABORATORY CONSULTATION. CBC W/AUTO DIFF WITH [id number] 04:31:59* Test Item Value Reference Range Interpretation Comme nts WBC (test code = 1001) 7.8 K/UL 3.5-11.0 RBC (test code = 1002) 3.79 M/UL 4.50-6.10 L HEMOGLOBIN (test code = 1003) 12.3 G/DL 13.5-17.0 L HEMATOCRIT (test code = 1004) 35.7 % 40.0-51.0 L MCV (test code = 1005) 94.2 fL 80.0-99.0 MCH (test code = 1006) 32.5 PG 25.0-33.0 MCHC (test code = 1007) 34.5 G/DL 31.0-36.0 RDW (test code = 1038) 13.5 % 11.5-15.0 NEUTROPHILS (test code = 1008) 63.0 % LYMPHOCYTES (test code = 1010) 25.3 % MONOCYTES (test code = 1011) 7.7 % EOSINOPHILS (test code = 1012) 3.1 % BASOPHILS (test code = 1013) 0.5 % IMMATURE GRANULOCYTES (test code = 1036) 0.4 % NUCLEATED RBCS (test code = 1065) 0.0 /100 WBC'S See_Comment [Automated messa ge] The system which generated this result transmitted reference range: 0.0. The reference range was not used to interpret this result as normal/abnormal. PLATELET COUNT (test code = 1015) 212 K/UL 130-400 ABSOLUTE NEUTROPHILS (test code = 1066) 4.93 K/UL 1.50-7.50 ABSOLUTE LYMPHOCYTES (test code = 1067) 1.98 K/UL 1.00-4.00 ABSOLUTE MONOCYTES (test code = 1068) 0.60 K/UL 0.20-1.00 ABSOLUTE EOSINOPHILS (test code = 1040) 0.24 K/UL 0.00-0.50 ABSOLUTE BASOPHILS (test code = 1069) 0.04 K/UL 0.00-0.20 ABS IMMATURE GRANULOCYTES (test code = 1020) 0.03 K/UL 0.00-0.10 ABS NUCLEATED RBCS (test code = 67678) 0.00 K/UL 0.00-0.11 HEMOGLOBIN [id number] 00:00:00* Test Item Value Reference Range Interpretation Comme nts HEMOGLOBIN A1c (test code = 08440) 9.9 % COMPREHENSIVE METABOLIC [id number] 00:00:00* Test Item Value Reference Range Interpretation Comme nts GLUCOSE (test code = 2217) 259 MG/DL BUN (test code = 2208) 19 MG/DL CREATININE (test code = 2214) 1.06 MG/DL eGFR (2020 CKD-EPI) (test co de = 78421) 82 ML/MIN/1.73 CALC BUN/CREAT (test code = 2235) 18 RATIO SODIUM (test code = 2231) 140 MEQ/L POTASSIUM (test code = 2228) 4.3 MEQ/L CHLORIDE (test code = 2215) 103 MEQ/L CARBON DIOXIDE (test code = 2206) 24 MEQ/L CALCIUM (test code = 2209) 9.3 MG/DL PROTEIN, TOTAL (test code = 2229) 6.7 G/DL ALBUMIN (test code = 2201) 3.7 G/DL CALC GLOBULIN (test code = 2240) 3.0 G/DL CALC A/G RATIO (test code = 2234) 1.2 RATIO BILIRUBIN, TOTAL (test code = 2207) 0.3 MG/DL ALKALINE PHOSPHATASE (test code = 2204) 109 U/L AST (test code = 2218) 20 U/L ALT (test code = 2219) 21 U/L COMPREHENSIVE METABOLIC [id number] 00:00:00* Test Item Value Reference Range Interpretation Comme nts GLUCOSE (test code = 2217) 259 MG/DL BUN (test code = 2208) 19 MG/DL CREATININE (test code = 2214) 1.06 MG/DL eGFR (2020 CKD-EPI) (test co de = 13012) 82 ML/MIN/1.73 CALC BUN/CREAT (test code = 2235) 18 RATIO SODIUM (test code = 2231) 140 MEQ/L POTASSIUM (test code = 2228) 4.3 MEQ/L CHLORIDE (test code = 2215) 103 MEQ/L CARBON DIOXIDE (test code = 2206) 24 MEQ/L CALCIUM (test code = 2209) 9.3 MG/DL PROTEIN, TOTAL (test code = 2229) 6.7 G/DL ALBUMIN (test code = 2201) 3.7 G/DL CALC GLOBULIN (test code = 2240) 3.0 G/DL CALC A/G RATIO (test code = 2234) 1.2 RATIO BILIRUBIN, TOTAL (test code = 2207) 0.3 MG/DL ALKALINE PHOSPHATASE (test code = 2204) 109 U/L AST (test code = 2218) 20 U/L ALT (test code = 2219) 21 U/L CBC W/AUTO [id number] 00:00:00* Test Item Value Reference Range Interpretation Comme nts WBC (test code = 1001) 7.8 K/UL RBC (test code = 1002) 3.79 M/UL HEMOGLOBIN (test code = 1003) 12.3 G/DL HEMATOCRIT (test code = 1004) 35.7 % MCV (test code = 1005) 94.2 fL MCH (test code = 1006) 32.5 PG MCHC (test code = 1007) 34.5 G/DL RDW (test code = 1038) 13.5 % NEUTROPHILS (test code = 1008) 63.0 % LYMPHOCYTES (test code = 1010) 25.3 % MONOCYTES (test code = 1011) 7.7 % EOSINOPHILS (test code = 1012) 3.1 % BASOPHILS (test code = 1013) 0.5 % IMMATURE GRANULOCYTES (test code = 1036) 0.4 % NUCLEATED RBCS (test code = 1065) 0.0 /100WBC'S PLATELET COUNT (test code = 1015) 212 K/UL ABSOLUTE NEUTROPHILS (test c ode = 1066) 4.93 K/UL ABSOLUTE LYMPHOCYTES (test c ode = 1067) 1.98 K/UL ABSOLUTE MONOCYTES (test cod e = 1068) 0.60 K/UL ABSOLUTE EOSINOPHILS (test c ode = 1040) 0.24 K/UL ABSOLUTE BASOPHILS (test cod e = 1069) 0.04 K/UL ABS IMMATURE GRANULOCYTES (t est code = 1020) 0.03 K/UL ABS NUCLEATED RBCS (test cod e = 89276) 0.00 K/UL CBC W/AUTO [id number] 00:00:00* Test Item Value Reference Range Interpretation Comme nts WBC (test code = 1001) 7.8 K/UL RBC (test code = 1002) 3.79 M/UL HEMOGLOBIN (test code = 1003) 12.3 G/DL HEMATOCRIT (test code = 1004) 35.7 % MCV (test code = 1005) 94.2 fL MCH (test code = 1006) 32.5 PG MCHC (test code = 1007) 34.5 G/DL RDW (test code = 1038) 13.5 % NEUTROPHILS (test code = 1008) 63.0 % LYMPHOCYTES (test code = 1010) 25.3 % MONOCYTES (test code = 1011) 7.7 % EOSINOPHILS (test code = 1012) 3.1 % BASOPHILS (test code = 1013) 0.5 % IMMATURE GRANULOCYTES (test code = 1036) 0.4 % NUCLEATED RBCS (test code = 1065) 0.0 /100WBC'S PLATELET COUNT (test code = 1015) 212 K/UL ABSOLUTE NEUTROPHILS (test c ode = 1066) 4.93 K/UL ABSOLUTE LYMPHOCYTES (test c ode = 1067) 1.98 K/UL ABSOLUTE MONOCYTES (test cod e = 1068) 0.60 K/UL ABSOLUTE EOSINOPHILS (test c ode = 1040) 0.24 K/UL ABSOLUTE BASOPHILS (test cod e = 1069) 0.04 K/UL ABS IMMATURE GRANULOCYTES (t est code = 1020) 0.03 K/UL ABS NUCLEATED RBCS (test cod e = 50920) 0.00 K/UL CBC W/AUTO [id number] 00:00:00* Test Item Value Reference Range Interpretation Comme nts WBC (test code = 1001) 7.8 K/UL RBC (test code = 1002) 3.79 M/UL HEMOGLOBIN (test code = 1003) 12.3 G/DL HEMATOCRIT (test code = 1004) 35.7 % MCV (test code = 1005) 94.2 fL MCH (test code = 1006) 32.5 PG MCHC (test code = 1007) 34.5 G/DL RDW (test code = 1038) 13.5 % NEUTROPHILS (test code = 1008) 63.0 % LYMPHOCYTES (test code = 1010) 25.3 % MONOCYTES (test code = 1011) 7.7 % EOSINOPHILS (test code = 1012) 3.1 % BASOPHILS (test code = 1013) 0.5 % IMMATURE GRANULOCYTES (test code = 1036) 0.4 % NUCLEATED RBCS (test code = 1065) 0.0 /100WBC'S PLATELET COUNT (test code = 1015) 212 K/UL ABSOLUTE NEUTROPHILS (test c ode = 1066) 4.93 K/UL ABSOLUTE LYMPHOCYTES (test c ode = 1067) 1.98 K/UL ABSOLUTE MONOCYTES (test cod e = 1068) 0.60 K/UL ABSOLUTE EOSINOPHILS (test c ode = 1040) 0.24 K/UL ABSOLUTE BASOPHILS (test cod e = 1069) 0.04 K/UL ABS IMMATURE GRANULOCYTES (t est code = 1020) 0.03 K/UL ABS NUCLEATED RBCS (test cod e = 86105) 0.00 K/UL LIPID [id number] 00:00:00* Test Item Value Reference Range Interpretation Comme nts CHOLESTEROL (test code = 2210) 213 MG/DL TRIGLYCERIDES (test code = 2232) 169 MG/DL HDL CHOLESTEROL (test code = 2220) 49 MG/DL CALC LDL CHOL (test code = 2237) 133 MG/DL RISK RATIO LDL/HDL (test cod e = 2238) 2.71 RATIO LIPID [id number] 00:00:00* Test Item Value Reference Range Interpretation Comme nts CHOLESTEROL (test code = 2210) 213 MG/DL TRIGLYCERIDES (test code = 2232) 169 MG/DL HDL CHOLESTEROL (test code = 2220) 49 MG/DL CALC LDL CHOL (test code = 2237) 133 MG/DL RISK RATIO LDL/HDL (test cod e = 2238) 2.71 RATIO HEMOGLOBIN [id number] 00:00:00* Test Item Value Reference Range Interpretation Comme nts HEMOGLOBIN A1c (test code = 89997) 9.9 % HEMOGLOBIN [id number] 00:00:00* Test Item Value Reference Range Interpretation Comme nts HEMOGLOBIN A1c (test code = 76468) 9.9 % HEMOGLOBIN [id number] 00:00:00* Test Item Value Reference Range Interpretation Comme nts HEMOGLOBIN A1c (test code = 47548) 9.9 % COMPREHENSIVE METABOLIC [id number] 00:00:00* Test Item Value Reference Range Interpretation Comme nts GLUCOSE (test code = 2217) 259 MG/DL BUN (test code = 2208) 19 MG/DL CREATININE (test code = 2214) 1.06 MG/DL eGFR (2020 CKD-EPI) (test co de = 37014) 82 ML/MIN/1.73 CALC BUN/CREAT (test code = 2235) 18 RATIO SODIUM (test code = 2231) 140 MEQ/L POTASSIUM (test code = 2228) 4.3 MEQ/L CHLORIDE (test code = 2215) 103 MEQ/L CARBON DIOXIDE (test code = 2206) 24 MEQ/L CALCIUM (test code = 2209) 9.3 MG/DL PROTEIN, TOTAL (test code = 2229) 6.7 G/DL ALBUMIN (test code = 2201) 3.7 G/DL CALC GLOBULIN (test code = 2240) 3.0 G/DL CALC A/G RATIO (test code = 2234) 1.2 RATIO BILIRUBIN, TOTAL (test code = 2207) 0.3 MG/DL ALKALINE PHOSPHATASE (test code = 2204) 109 U/L AST (test code = 2218) 20 U/L ALT (test code = 2219) 21 U/L COMPREHENSIVE METABOLIC [id number] 00:00:00* Test Item Value Reference Range Interpretation Comme nts GLUCOSE (test code = 2217) 259 MG/DL BUN (test code = 2208) 19 MG/DL CREATININE (test code = 2214) 1.06 MG/DL eGFR (2020 CKD-EPI) (test co de = 31948) 82 ML/MIN/1.73 CALC BUN/CREAT (test code = 2235) 18 RATIO SODIUM (test code = 2231) 140 MEQ/L POTASSIUM (test code = 2228) 4.3 MEQ/L CHLORIDE (test code = 2215) 103 MEQ/L CARBON DIOXIDE (test code = 2206) 24 MEQ/L CALCIUM (test code = 2209) 9.3 MG/DL PROTEIN, TOTAL (test code = 2229) 6.7 G/DL ALBUMIN (test code = 2201) 3.7 G/DL CALC GLOBULIN (test code = 2240) 3.0 G/DL CALC A/G RATIO (test code = 2234) 1.2 RATIO BILIRUBIN, TOTAL (test code = 2207) 0.3 MG/DL ALKALINE PHOSPHATASE (test code = 2204) 109 U/L AST (test code = 2218) 20 U/L ALT (test code = 2219) 21 U/L CBC W/AUTO [id number] 00:00:00* Test Item Value Reference Range Interpretation Comme nts WBC (test code = 1001) 7.8 K/UL RBC (test code = 1002) 3.79 M/UL HEMOGLOBIN (test code = 1003) 12.3 G/DL HEMATOCRIT (test code = 1004) 35.7 % MCV (test code = 1005) 94.2 fL MCH (test code = 1006) 32.5 PG MCHC (test code = 1007) 34.5 G/DL RDW (test code = 1038) 13.5 % NEUTROPHILS (test code = 1008) 63.0 % LYMPHOCYTES (test code = 1010) 25.3 % MONOCYTES (test code = 1011) 7.7 % EOSINOPHILS (test code = 1012) 3.1 % BASOPHILS (test code = 1013) 0.5 % IMMATURE GRANULOCYTES (test code = 1036) 0.4 % NUCLEATED RBCS (test code = 1065) 0.0 /100WBC'S PLATELET COUNT (test code = 1015) 212 K/UL ABSOLUTE NEUTROPHILS (test c ode = 1066) 4.93 K/UL ABSOLUTE LYMPHOCYTES (test c ode = 1067) 1.98 K/UL ABSOLUTE MONOCYTES (test cod e = 1068) 0.60 K/UL ABSOLUTE EOSINOPHILS (test c ode = 1040) 0.24 K/UL ABSOLUTE BASOPHILS (test cod e = 1069) 0.04 K/UL ABS IMMATURE GRANULOCYTES (t est code = 1020) 0.03 K/UL ABS NUCLEATED RBCS (test cod e = 29811) 0.00 K/UL CBC W/AUTO [id number] 00:00:00* Test Item Value Reference Range Interpretation Comme nts WBC (test code = 1001) 7.8 K/UL RBC (test code = 1002) 3.79 M/UL HEMOGLOBIN (test code = 1003) 12.3 G/DL HEMATOCRIT (test code = 1004) 35.7 % MCV (test code = 1005) 94.2 fL MCH (test code = 1006) 32.5 PG MCHC (test code = 1007) 34.5 G/DL RDW (test code = 1038) 13.5 % NEUTROPHILS (test code = 1008) 63.0 % LYMPHOCYTES (test code = 1010) 25.3 % MONOCYTES (test code = 1011) 7.7 % EOSINOPHILS (test code = 1012) 3.1 % BASOPHILS (test code = 1013) 0.5 % IMMATURE GRANULOCYTES (test code = 1036) 0.4 % NUCLEATED RBCS (test code = 1065) 0.0 /100WBC'S PLATELET COUNT (test code = 1015) 212 K/UL ABSOLUTE NEUTROPHILS (test c ode = 1066) 4.93 K/UL ABSOLUTE LYMPHOCYTES (test c ode = 1067) 1.98 K/UL ABSOLUTE MONOCYTES (test cod e = 1068) 0.60 K/UL ABSOLUTE EOSINOPHILS (test c ode = 1040) 0.24 K/UL ABSOLUTE BASOPHILS (test cod e = 1069) 0.04 K/UL ABS IMMATURE GRANULOCYTES (t est code = 1020) 0.03 K/UL ABS NUCLEATED RBCS (test cod e = 35356) 0.00 K/UL CBC W/AUTO [id number] 00:00:00* Test Item Value Reference Range Interpretation Comme nts WBC (test code = 1001) 7.8 K/UL RBC (test code = 1002) 3.79 M/UL HEMOGLOBIN (test code = 1003) 12.3 G/DL HEMATOCRIT (test code = 1004) 35.7 % MCV (test code = 1005) 94.2 fL MCH (test code = 1006) 32.5 PG MCHC (test code = 1007) 34.5 G/DL RDW (test code = 1038) 13.5 % NEUTROPHILS (test code = 1008) 63.0 % LYMPHOCYTES (test code = 1010) 25.3 % MONOCYTES (test code = 1011) 7.7 % EOSINOPHILS (test code = 1012) 3.1 % BASOPHILS (test code = 1013) 0.5 % IMMATURE GRANULOCYTES (test code = 1036) 0.4 % NUCLEATED RBCS (test code = 1065) 0.0 /100WBC'S PLATELET COUNT (test code = 1015) 212 K/UL ABSOLUTE NEUTROPHILS (test c ode = 1066) 4.93 K/UL ABSOLUTE LYMPHOCYTES (test c ode = 1067) 1.98 K/UL ABSOLUTE MONOCYTES (test cod e = 1068) 0.60 K/UL ABSOLUTE EOSINOPHILS (test c ode = 1040) 0.24 K/UL ABSOLUTE BASOPHILS (test cod e = 1069) 0.04 K/UL ABS IMMATURE GRANULOCYTES (t est code = 1020) 0.03 K/UL ABS NUCLEATED RBCS (test cod e = 38225) 0.00 K/UL LIPID [id number] 00:00:00* Test Item Value Reference Range Interpretation Comme nts CHOLESTEROL (test code = 2210) 213 MG/DL TRIGLYCERIDES (test code = 2232) 169 MG/DL HDL CHOLESTEROL (test code = 2220) 49 MG/DL CALC LDL CHOL (test code = 2237) 133 MG/DL RISK RATIO LDL/HDL (test cod e = 2238) 2.71 RATIO LIPID [id number] 00:00:00* Test Item Value Reference Range Interpretation Comme nts CHOLESTEROL (test code = 2210) 213 MG/DL TRIGLYCERIDES (test code = 2232) 169 MG/DL HDL CHOLESTEROL (test code = 2220) 49 MG/DL CALC LDL CHOL (test code = 2237) 133 MG/DL RISK RATIO LDL/HDL (test cod e = 2238) 2.71 RATIO HEMOGLOBIN [id number] 00:00:00* Test Item Value Reference Range Interpretation Comme [facility] HEMOGLOBIN A1c (test code = 63805) 9.9 % HEMOGLOBIN [id number] 00:00:00* Test Item Value Reference Range Interpretation Comme [facility] HEMOGLOBIN A1c (test code = 82672) 9.9 % HEMOGLOBIN [id number] 07:51:54* Test Item Value Reference Range Interpretation Comme [facility] HEMOGLOBIN A1c (test code = 65823) 10.1 % 4.2-5.6 H [employer] GUIDELINES FOR HGB A1C: PREDIABETES/INCREASED RISK . . . . . . . 5.7-6.4% DIAGNOSIS OF DIABETES . . . . . . . . . >=6.5% WITH CONFIRMATION OR APPROPRIATE SYMPTOMS NOTE: ASSAY MAY BE AFFECTED BY HEMOGLOBINOPATHIES (SICKLE CELL ANEMIA, S-C DISEASE, OTHERS) OR ARTIFICIALLY LOWERED BY DECREASED RED CELL SURVIVAL (HEMOLYTIC ANEMIAS, BLOOD LOSS, ETC.). CONSIDER ALTERNATE TESTING OR LABORATORY CONSULTATION. COMPREHENSIVE METABOLIC [id number] 06:38:05* Test Item Value Reference Range Interpretation Comme [facility] GLUCOSE (test code = 2217) 164 MG/DL 70-99 H BUN (test code = 2207) 27 MG/DL 6-20 H CREATININE (test code = 2214) 1.06 MG/DL 0.80-1.40 eGFR (2020 CKD-EPI) (test code = 49718) 82 ML/MIN/1.73 >60 CALC BUN/CREAT (test code = 2235) 25 RATIO 6-28 SODIUM (test code = 223) 141 MEQ/L 133-146 POTASSIUM (test code = 2228) 4.0 MEQ/L 3.5-5.4 CHLORIDE (test code = 2215) 103 MEQ/L 95-107 CARBON DIOXIDE (test code = 2206) 23 MEQ/L 19-31 CALCIUM (test code = 2209) 9.6 MG/DL 8.5-10.5 PROTEIN, TOTAL (test code = 222) 6.9 G/DL 6.1-8.3 ALBUMIN (test code = 1) 4.0 G/DL 3.5-5.2 CALC GLOBULIN (test code = 2240) 2.9 G/DL 1.9-3.7 CALC A/G RATIO (test code = 2234) 1.4 RATIO 1.0-2.6 BILIRUBIN, TOTAL (test code = 7) 0.4 MG/DL See_Comment [Automated me ssage] The system which generated this result transmitted reference range: <=1.2. The reference range was not used to interpret this result as normal/abnormal. ALKALINE PHOSPHATASE (test code = 2204) 97 U/L 40-123 AST (test code = 2218) 22 U/L 9-50 ALT (test code = 2219) 22 U/L 5-50 LIPID [id number] 06:38:05* Test Item Value Reference Range Interpretation Comme nts CHOLESTEROL (test code = 2210) 229 MG/DL <200 H TRIGLYCERIDES (test code = 2232) 122 MG/DL <150 HDL CHOLESTEROL (test code = 2220) 68 MG/DL >39 CALC LDL CHOL (test code = 7) 137 MG/DL <100 H NOTE: CALCULATED LDL IS BASED ON ANA-BURGESS METHOD WHICHINCLUDES ADJUSTABLE TRIGLYCERIDE:VLDL CHOLESTEROL RATIO.THIS FACTOR VARIES BY MEASURED TRIGLYCERIDE AND NON-HDLCHOLESTEROL CONCENTRATIONS WITH INCREASED CALCULATED LDL SEENIN HIGHER TRIGLYCERIDE OR LOWER NON-HDL SPECIMENS. FOR MOREINFORMATION, SEE CLIENT ANNOUNCEMENT AT [email or web address] [email or web address] RATIO LDL/HDL (test code = 2238) 2.01 RATIO <3.55 UNLESS OTHERW ISE INDICATED, ALL TESTING PERFORMED [facility] [address] [place] [address] [employer] CHIEF: NIKKIE CRANDALL M.D. CLIA NUMBER [id number] [place]. [id number] CBC W/AUTO DIFF WITH [id number] 04:34:50* Test Item Value Reference Range Interpretation Comme nts WBC (test code = 1001) 8.3 K/UL 3.5-11.0 RBC (test code = 1002) 3.76 M/UL 4.50-6.10 L HEMOGLOBIN (test code = 1003) 12.2 G/DL 13.5-17.0 L HEMATOCRIT (test code = 1004) 35.7 % 40.0-51.0 L MCV (test code = 1005) 94.9 fL 80.0-99.0 MCH (test code = 1006) 32.4 PG 25.0-33.0 MCHC (test code = 1007) 34.2 G/DL 31.0-36.0 RDW (test code = 1038) 13.0 % 11.5-15.0 NEUTROPHILS (test code = 1008) 53.0 % LYMPHOCYTES (test code = 1010) 32.5 % MONOCYTES (test code = 1011) 11.3 % EOSINOPHILS (test code = 1012) 2.4 % BASOPHILS (test code = 1013) 0.7 % IMMATURE GRANULOCYTES (test code = 1036) 0.1 % NUCLEATED RBCS (test code = 1065) 0.0 /100 WBC'S See_Comment [Automated messa ge] The system which generated this result transmitted reference range: 0.0. The reference range was not used to interpret this result as normal/abnormal. PLATELET COUNT (test code = 1015) 209 K/UL 130-400 ABSOLUTE NEUTROPHILS (test code = 1066) 4.37 K/UL 1.50-7.50 ABSOLUTE LYMPHOCYTES (test code = 1067) 2.68 K/UL 1.00-4.00 ABSOLUTE MONOCYTES (test code = 1068) 0.93 K/UL 0.20-1.00 ABSOLUTE EOSINOPHILS (test code = 1040) 0.20 K/UL 0.00-0.50 ABSOLUTE BASOPHILS (test code = 1069) 0.06 K/UL 0.00-0.20 ABS IMMATURE GRANULOCYTES (test code = 1020) 0.01 K/UL 0.00-0.10 ABS NUCLEATED RBCS (test code = 23760) 0.00 K/UL 0.00-0.11 LIPID [id number] 00:00:00* Test Item Value Reference Range Interpretation Comme nts CHOLESTEROL (test code = 2210) 229 MG/DL TRIGLYCERIDES (test code = 2232) 122 MG/DL HDL CHOLESTEROL (test code = 2220) 68 MG/DL CALC LDL CHOL (test code = 2237) 137 MG/DL RISK RATIO LDL/HDL (test cod e = 2238) 2.01 RATIO LIPID [id number] 00:00:00* Test Item Value Reference Range Interpretation Comme nts CHOLESTEROL (test code = 2210) 229 MG/DL TRIGLYCERIDES (test code = 2232) 122 MG/DL HDL CHOLESTEROL (test code = 2220) 68 MG/DL CALC LDL CHOL (test code = 2237) 137 MG/DL RISK RATIO LDL/HDL (test cod e = 2238) 2.01 RATIO CBC W/AUTO [id number] 00:00:00* Test Item Value Reference Range Interpretation Comme nts WBC (test code = 1001) 8.3 K/UL RBC (test code = 1002) 3.76 M/UL HEMOGLOBIN (test code = 1003) 12.2 G/DL HEMATOCRIT (test code = 1004) 35.7 % MCV (test code = 1005) 94.9 fL MCH (test code = 1006) 32.4 PG MCHC (test code = 1007) 34.2 G/DL RDW (test code = 1038) 13.0 % NEUTROPHILS (test code = 1008) 53.0 % LYMPHOCYTES (test code = 1010) 32.5 % MONOCYTES (test code = 1011) 11.3 % EOSINOPHILS (test code = 1012) 2.4 % BASOPHILS (test code = 1013) 0.7 % IMMATURE GRANULOCYTES (test code = 1036) 0.1 % NUCLEATED RBCS (test code = 1065) 0.0 /100WBC'S PLATELET COUNT (test code = 1015) 209 K/UL ABSOLUTE NEUTROPHILS (test c ode = 1066) 4.37 K/UL ABSOLUTE LYMPHOCYTES (test c ode = 1067) 2.68 K/UL ABSOLUTE MONOCYTES (test cod e = 1068) 0.93 K/UL ABSOLUTE EOSINOPHILS (test c ode = 1040) 0.20 K/UL ABSOLUTE BASOPHILS (test cod e = 1069) 0.06 K/UL ABS IMMATURE GRANULOCYTES (t est code = 1020) 0.01 K/UL ABS NUCLEATED RBCS (test cod e = 22780) 0.00 K/UL CBC W/AUTO [id number] 00:00:00* Test Item Value Reference Range Interpretation Comme nts WBC (test code = 1001) 8.3 K/UL RBC (test code = 1002) 3.76 M/UL HEMOGLOBIN (test code = 1003) 12.2 G/DL HEMATOCRIT (test code = 1004) 35.7 % MCV (test code = 1005) 94.9 fL MCH (test code = 1006) 32.4 PG MCHC (test code = 1007) 34.2 G/DL RDW (test code = 1038) 13.0 % NEUTROPHILS (test code = 1008) 53.0 % LYMPHOCYTES (test code = 1010) 32.5 % MONOCYTES (test code = 1011) 11.3 % EOSINOPHILS (test code = 1012) 2.4 % BASOPHILS (test code = 1013) 0.7 % IMMATURE GRANULOCYTES (test code = 1036) 0.1 % NUCLEATED RBCS (test code = 1065) 0.0 /100WBC'S PLATELET COUNT (test code = 1015) 209 K/UL ABSOLUTE NEUTROPHILS (test c ode = 1066) 4.37 K/UL ABSOLUTE LYMPHOCYTES (test c ode = 1067) 2.68 K/UL ABSOLUTE MONOCYTES (test cod e = 1068) 0.93 K/UL ABSOLUTE EOSINOPHILS (test c ode = 1040) 0.20 K/UL ABSOLUTE BASOPHILS (test cod e = 1069) 0.06 K/UL ABS IMMATURE GRANULOCYTES (t est code = 1020) 0.01 K/UL ABS NUCLEATED RBCS (test cod e = 78705) 0.00 K/UL CBC W/AUTO [id number] 00:00:00* Test Item Value Reference Range Interpretation Comme nts WBC (test code = 1001) 8.3 K/UL RBC (test code = 1002) 3.76 M/UL HEMOGLOBIN (test code = 1003) 12.2 G/DL HEMATOCRIT (test code = 1004) 35.7 % MCV (test code = 1005) 94.9 fL MCH (test code = 1006) 32.4 PG MCHC (test code = 1007) 34.2 G/DL RDW (test code = 1038) 13.0 % NEUTROPHILS (test code = 1008) 53.0 % LYMPHOCYTES (test code = 1010) 32.5 % MONOCYTES (test code = 1011) 11.3 % EOSINOPHILS (test code = 1012) 2.4 % BASOPHILS (test code = 1013) 0.7 % IMMATURE GRANULOCYTES (test code = 1036) 0.1 % NUCLEATED RBCS (test code = 1065) 0.0 /100WBC'S PLATELET COUNT (test code = 1015) 209 K/UL ABSOLUTE NEUTROPHILS (test c ode = 1066) 4.37 K/UL ABSOLUTE LYMPHOCYTES (test c ode = 1067) 2.68 K/UL ABSOLUTE MONOCYTES (test cod e = 1068) 0.93 K/UL ABSOLUTE EOSINOPHILS (test c ode = 1040) 0.20 K/UL ABSOLUTE BASOPHILS (test cod e = 1069) 0.06 K/UL ABS IMMATURE GRANULOCYTES (t est code = 1020) 0.01 K/UL ABS NUCLEATED RBCS (test cod e = 66564) 0.00 K/UL HEMOGLOBIN [id number] 00:00:00* Test Item Value Reference Range Interpretation Comme nts HEMOGLOBIN A1c (test code = 01426) 10.1 % HEMOGLOBIN [id number] 00:00:00* Test Item Value Reference Range Interpretation Comme nts HEMOGLOBIN A1c (test code = 36674) 10.1 % HEMOGLOBIN [id number] 00:00:00* Test Item Value Reference Range Interpretation Comme nts HEMOGLOBIN A1c (test code = 09562) 10.1 % COMPREHENSIVE METABOLIC [id number] 00:00:00* Test Item Value Reference Range Interpretation Comme nts GLUCOSE (test code = 2217) 164 MG/DL BUN (test code = 2208) 27 MG/DL CREATININE (test code = 2214) 1.06 MG/DL eGFR (2020 CKD-EPI) (test co de = 08562) 82 ML/MIN/1.73 CALC BUN/CREAT (test code = 2235) 25 RATIO SODIUM (test code = 2231) 141 MEQ/L POTASSIUM (test code = 2228) 4.0 MEQ/L CHLORIDE (test code = 2215) 103 MEQ/L CARBON DIOXIDE (test code = 2206) 23 MEQ/L CALCIUM (test code = 2209) 9.6 MG/DL PROTEIN, TOTAL (test code = 2229) 6.9 G/DL ALBUMIN (test code = 2201) 4.0 G/DL CALC GLOBULIN (test code = 2240) 2.9 G/DL CALC A/G RATIO (test code = 2234) 1.4 RATIO BILIRUBIN, TOTAL (test code = 2207) 0.4 MG/DL ALKALINE PHOSPHATASE (test code = 2204) 97 U/L AST (test code = 2218) 22 U/L ALT (test code = 2219) 22 U/L COMPREHENSIVE METABOLIC [id number] 00:00:00* Test Item Value Reference Range Interpretation Comme nts GLUCOSE (test code = 2217) 164 MG/DL BUN (test code = 2208) 27 MG/DL CREATININE (test code = 2214) 1.06 MG/DL eGFR (2020 CKD-EPI) (test co de = 55438) 82 ML/MIN/1.73 CALC BUN/CREAT (test code = 2235) 25 RATIO SODIUM (test code = 2231) 141 MEQ/L POTASSIUM (test code = 2228) 4.0 MEQ/L CHLORIDE (test code = 2215) 103 MEQ/L CARBON DIOXIDE (test code = 2206) 23 MEQ/L CALCIUM (test code = 2209) 9.6 MG/DL PROTEIN, TOTAL (test code = 2229) 6.9 G/DL ALBUMIN (test code = 2201) 4.0 G/DL CALC GLOBULIN (test code = 2240) 2.9 G/DL CALC A/G RATIO (test code = 2234) 1.4 RATIO BILIRUBIN, TOTAL (test code = 2207) 0.4 MG/DL ALKALINE PHOSPHATASE (test code = 2204) 97 U/L AST (test code = 2218) 22 U/L ALT (test code = 2219) 22 U/L LIPID [id number] 00:00:00* Test Item Value Reference Range Interpretation Comme nts CHOLESTEROL (test code = 2210) 229 MG/DL TRIGLYCERIDES (test code = 2232) 122 MG/DL HDL CHOLESTEROL (test code = 2220) 68 MG/DL CALC LDL CHOL (test code = 2237) 137 MG/DL RISK RATIO LDL/HDL (test cod e = 2238) 2.01 RATIO LIPID [id number] 00:00:00* Test Item Value Reference Range Interpretation Comme nts CHOLESTEROL (test code = 2210) 229 MG/DL TRIGLYCERIDES (test code = 2232) 122 MG/DL HDL CHOLESTEROL (test code = 2220) 68 MG/DL CALC LDL CHOL (test code = 2237) 137 MG/DL RISK RATIO LDL/HDL (test cod e = 2238) 2.01 RATIO CBC W/AUTO [id number] 00:00:00* Test Item Value Reference Range Interpretation Comme nts WBC (test code = 1001) 8.3 K/UL RBC (test code = 1002) 3.76 M/UL HEMOGLOBIN (test code = 1003) 12.2 G/DL HEMATOCRIT (test code = 1004) 35.7 % MCV (test code = 1005) 94.9 fL MCH (test code = 1006) 32.4 PG MCHC (test code = 1007) 34.2 G/DL RDW (test code = 1038) 13.0 % NEUTROPHILS (test code = 1008) 53.0 % LYMPHOCYTES (test code = 1010) 32.5 % MONOCYTES (test code = 1011) 11.3 % EOSINOPHILS (test code = 1012) 2.4 % BASOPHILS (test code = 1013) 0.7 % IMMATURE GRANULOCYTES (test code = 1036) 0.1 % NUCLEATED RBCS (test code = 1065) 0.0 /100WBC'S PLATELET COUNT (test code = 1015) 209 K/UL ABSOLUTE NEUTROPHILS (test c ode = 1066) 4.37 K/UL ABSOLUTE LYMPHOCYTES (test c ode = 1067) 2.68 K/UL ABSOLUTE MONOCYTES (test cod e = 1068) 0.93 K/UL ABSOLUTE EOSINOPHILS (test c ode = 1040) 0.20 K/UL ABSOLUTE BASOPHILS (test cod e = 1069) 0.06 K/UL ABS IMMATURE GRANULOCYTES (t est code = 1020) 0.01 K/UL ABS NUCLEATED RBCS (test cod e = 59388) 0.00 K/UL CBC W/AUTO [id number] 00:00:00* Test Item Value Reference Range Interpretation Comme nts WBC (test code = 1001) 8.3 K/UL RBC (test code = 1002) 3.76 M/UL HEMOGLOBIN (test code = 1003) 12.2 G/DL HEMATOCRIT (test code = 1004) 35.7 % MCV (test code = 1005) 94.9 fL MCH (test code = 1006) 32.4 PG MCHC (test code = 1007) 34.2 G/DL RDW (test code = 1038) 13.0 % NEUTROPHILS (test code = 1008) 53.0 % LYMPHOCYTES (test code = 1010) 32.5 % MONOCYTES (test code = 1011) 11.3 % EOSINOPHILS (test code = 1012) 2.4 % BASOPHILS (test code = 1013) 0.7 % IMMATURE GRANULOCYTES (test code = 1036) 0.1 % NUCLEATED RBCS (test code = 1065) 0.0 /100WBC'S PLATELET COUNT (test code = 1015) 209 K/UL ABSOLUTE NEUTROPHILS (test c ode = 1066) 4.37 K/UL ABSOLUTE LYMPHOCYTES (test c ode = 1067) 2.68 K/UL ABSOLUTE MONOCYTES (test cod e = 1068) 0.93 K/UL ABSOLUTE EOSINOPHILS (test c ode = 1040) 0.20 K/UL ABSOLUTE BASOPHILS (test cod e = 1069) 0.06 K/UL ABS IMMATURE GRANULOCYTES (t est code = 1020) 0.01 K/UL ABS NUCLEATED RBCS (test cod e = 38088) 0.00 K/UL CBC W/AUTO [id number] 00:00:00* Test Item Value Reference Range Interpretation Comme nts WBC (test code = 1001) 8.3 K/UL RBC (test code = 1002) 3.76 M/UL HEMOGLOBIN (test code = 1003) 12.2 G/DL HEMATOCRIT (test code = 1004) 35.7 % MCV (test code = 1005) 94.9 fL MCH (test code = 1006) 32.4 PG MCHC (test code = 1007) 34.2 G/DL RDW (test code = 1038) 13.0 % NEUTROPHILS (test code = 1008) 53.0 % LYMPHOCYTES (test code = 1010) 32.5 % MONOCYTES (test code = 1011) 11.3 % EOSINOPHILS (test code = 1012) 2.4 % BASOPHILS (test code = 1013) 0.7 % IMMATURE GRANULOCYTES (test code = 1036) 0.1 % NUCLEATED RBCS (test code = 1065) 0.0 /100WBC'S PLATELET COUNT (test code = 1015) 209 K/UL ABSOLUTE NEUTROPHILS (test c ode = 1066) 4.37 K/UL ABSOLUTE LYMPHOCYTES (test c ode = 1067) 2.68 K/UL ABSOLUTE MONOCYTES (test cod e = 1068) 0.93 K/UL ABSOLUTE EOSINOPHILS (test c ode = 1040) 0.20 K/UL ABSOLUTE BASOPHILS (test cod e = 1069) 0.06 K/UL ABS IMMATURE GRANULOCYTES (t est code = 1020) 0.01 K/UL ABS NUCLEATED RBCS (test cod e = 75667) 0.00 K/UL HEMOGLOBIN [id number] 00:00:00* Test Item Value Reference Range Interpretation Comme nts HEMOGLOBIN A1c (test code = 94086) 10.1 % HEMOGLOBIN [id number] 00:00:00* Test Item Value Reference Range Interpretation Comme nts HEMOGLOBIN A1c (test code = 48039) 10.1 % HEMOGLOBIN [id number] 00:00:00* Test Item Value Reference Range Interpretation Comme nts HEMOGLOBIN A1c (test code = 88452) 10.1 % COMPREHENSIVE METABOLIC [id number] 00:00:00* Test Item Value Reference Range Interpretation Comme nts GLUCOSE (test code = 2217) 164 MG/DL BUN (test code = 2208) 27 MG/DL CREATININE (test code = 2214) 1.06 MG/DL eGFR (2020 CKD-EPI) (test co de = 34905) 82 ML/MIN/1.73 CALC BUN/CREAT (test code = 2235) 25 RATIO SODIUM (test code = 2231) 141 MEQ/L POTASSIUM (test code = 2228) 4.0 MEQ/L CHLORIDE (test code = 2215) 103 MEQ/L CARBON DIOXIDE (test code = 2206) 23 MEQ/L CALCIUM (test code = 2209) 9.6 MG/DL PROTEIN, TOTAL (test code = 2229) 6.9 G/DL ALBUMIN (test code = 2201) 4.0 G/DL CALC GLOBULIN (test code = 2240) 2.9 G/DL CALC A/G RATIO (test code = 2234) 1.4 RATIO BILIRUBIN, TOTAL (test code = 2207) 0.4 MG/DL ALKALINE PHOSPHATASE (test code = 2204) 97 U/L AST (test code = 2218) 22 U/L ALT (test code = 2219) 22 U/L COMPREHENSIVE METABOLIC [id number] 00:00:00* Test Item Value Reference Range Interpretation Comme nts GLUCOSE (test code = 2217) 164 MG/DL BUN (test code = 2208) 27 MG/DL CREATININE (test code = 2214) 1.06 MG/DL eGFR (2020 CKD-EPI) (test co de = 84373) 82 ML/MIN/1.73 CALC BUN/CREAT (test code = 2235) 25 RATIO SODIUM (test code = 2231) 141 MEQ/L POTASSIUM (test code = 2228) 4.0 MEQ/L CHLORIDE (test code = 2215) 103 MEQ/L CARBON DIOXIDE (test code = 2206) 23 MEQ/L CALCIUM (test code = 2209) 9.6 MG/DL PROTEIN, TOTAL (test code = 2229) 6.9 G/DL ALBUMIN (test code = 2201) 4.0 G/DL CALC GLOBULIN (test code = 2240) 2.9 G/DL CALC A/G RATIO (test code = 2234) 1.4 RATIO BILIRUBIN, TOTAL (test code = 2207) 0.4 MG/DL ALKALINE PHOSPHATASE (test code = 2204) 97 U/L AST (test code = 2218) 22 U/L ALT (test code = 2219) 22 U/L POCT GLUCOSE (AUTOMATED)2021-07-08 17:00:05* Test Item Value Reference Range Interpretation Comme nts POCT GLU (test code = 9927713217) 174 mg/dL 70-110 H Lab Interpretation (test cod e = 89043-3) Abnormal [facility] GLUCOSE (AUTOMATED)2021-07-08 17:00:05* Test Item Value Reference Range Interpretation Comme nts POCT GLU (test code = 7197210655) 174 mg/dL 70-110 H Lab Interpretation (test cod e = 83144-0) Abnormal [facility] GLUCOSE (AUTOMATED)2021-07-08 13:07:13* Test Item Value Reference Range Interpretation Comme nts POCT GLU (test code = 7759861245) 230 mg/dL 70-110 H Lab Interpretation (test cod e = 70184-5) Abnormal [facility] GLUCOSE (AUTOMATED)2021-07-08 13:07:13* Test Item Value Reference Range Interpretation Comme nts POCT GLU (test code = 6206204126) 230 mg/dL 70-110 H Lab Interpretation (test cod e = 84710-2) [facility] [id number] 07:01:05* Test Item Value Reference Range Interpretation Comme nts Blood Culture-Aerobic (test code = 72056-9) No organisms isolated No growth Previous preliminary verified result was Culture In Progress on 07/03/2021 at 0501 CDTPrevious preliminary verified result was No growth at 24 hours on 07/04/2021 at 0201 CDTPrevious preliminary verified result was No growth at 48 hours on 07/05/2021 at 0201 CDTPrevious preliminary verified result was No growth at 72 hours on 07/06/2021 at 0201 CDT Blood Culture-Anaerobic (test code = 65679-7) No organisms isolated No growth Previous preliminary verified result was Culture In Progress on 07/03/2021 at 0501 CDTPrevious preliminary verified result was No growth at 24 hours on 07/04/2021 at 0201 CDTPrevious preliminary verified result was No growth at 48 hours on 07/05/2021 at 0201 CDTPrevious preliminary verified result was No growth at 72 hours on 07/06/2021 at 0201 CDT Lab Interpretation (test code = 19053-0) [facility] Culture - Peripheral # [id number] 07:01:05* Test Item Value Reference Range Interpretation Comme nts Blood Culture-Aerobic (test code = 91618-5) No organisms isolated No growth Previous preliminary verified result was Culture In Progress on 07/03/2021 at 0501 CDTPrevious preliminary verified result was No growth at 24 hours on 07/04/2021 at 0201 CDTPrevious preliminary verified result was No growth at 48 hours on 07/05/2021 at 0201 CDTPrevious preliminary verified result was No growth at 72 hours on 07/06/2021 at 0201 CDT Blood Culture-Anaerobic (test code = 22541-9) No organisms isolated No growth Previous preliminary verified result was Culture In Progress on 07/03/2021 at 0501 CDTPrevious preliminary verified result was No growth at 24 hours on 07/04/2021 at 0201 CDTPrevious preliminary verified result was No growth at 48 hours on 07/05/2021 at 0201 CDTPrevious preliminary verified result was No growth at 72 hours on 07/06/2021 at 0201 CDT Lab Interpretation (test code = 25681-6) [facility] Culture - Peripheral # [id number] 07:01:05* Test Item Value Reference Range Interpretation Comme nts Blood Culture-Aerobic (test code = 85147-1) No organisms isolated No growth Previous preliminary verified result was Culture In Progress on 07/03/2021 at 0501 CDTPrevious preliminary verified result was No growth at 24 hours on 07/04/2021 at 0201 CDTPrevious preliminary verified result was No growth at 48 hours on 07/05/2021 at 0201 CDTPrevious preliminary verified result was No growth at 72 hours on 07/06/2021 at 0201 T Blood Culture-Anaerobic (test code = 36481-2) No organisms isolated No growth Previous preliminary verified result was Culture In Progress on 07/03/2021 at 0501 CDTPrevious preliminary verified result was No growth at 24 hours on 07/04/2021 at 0201 CDTPrevious preliminary verified result was No growth at 48 hours on 07/05/2021 at 0201 CDTPrevious preliminary verified result was No growth at 72 hours on 07/06/2021 at 0201 CDT Lab Interpretation (test code = 11319-3) Normal [facility] Culture - Peripheral # [id number] 07:01:05* Test Item Value Reference Range Interpretation Comme [facility] Blood Culture-Aerobic (test code = 80239-3) No organisms isolated No growth Previous preliminary verified result was Culture In Progress on 07/03/2021 at 0501 CDTPrevious preliminary verified result was No growth at 24 hours on 07/04/2021 at 0201 CDTPrevious preliminary verified result was No growth at 48 hours on 07/05/2021 at 0201 CDTPrevious preliminary verified result was No growth at 72 hours on 07/06/2021 at 0201 T Blood Culture-Anaerobic (test code = 24097-4) No organisms isolated No growth Previous preliminary verified result was Culture In Progress on 07/03/2021 at 0501 CDTPrevious preliminary verified result was No growth at 24 hours on 07/04/2021 at 0201 CDTPrevious preliminary verified result was No growth at 48 hours on 07/05/2021 at 0201 CDTPrevious preliminary verified result was No growth at 72 hours on 07/06/2021 at 0201 CDT Lab Interpretation (test code = 41947-1) Normal [facility] GLUCOSE (AUTOMATED)2021-07-07 22:16:33* Test Item Value Reference Range Interpretation Comme [facility] POCT GLU (test code = 4868978249) 293 mg/dL 70-110 H Lab Interpretation (test cod e = 32029-4) Abnormal [facility] GLUCOSE (AUTOMATED)2021-07-07 22:16:33* Test Item Value Reference Range Interpretation Comme nts POCT GLU (test code = 1426462001) 293 mg/dL 70-110 H Lab Interpretation (test cod e = 75296-1) [facility] [id number] 20:37:10* Test Item Value Reference Range Interpretation Comme nts Case Report (test code = 3781572026) Surgical Pathology ?Case: [id number] ? Authorizing Provider: ?Nomi Robles Jr., JANAY ? Collected: ? 07/05/2021 184 ?Ordering Location: ? ? [facility] ? ? ?Received: ?07/05/20211947 ? [facility] ?Pathologist: ? Eduardo Ordaz MD PHD ?Specimen: ? ?TOE, RIGHT FOURTH TOE ? Final Diagnosis (test code = 9141035693) [id number] FuZzEwMzNcZnRuYmpcdWMx IHtccnRmMVxlcGljOTYwMV hkwjGcFWCgzFVuO3Irpjyb FOtdUP4vYO7shLekqMRrkA VcVKVmTiZkf5ugg680dYZk y7axWMRVzhnvbHi7oWtgO5 9wm8Y9SallL08gzRIoSFO2 QBJyPOWziOAvCMMvZUW5EZ NulAHhP7dxDSDcLO2phave ZZzaXSbpIMVhsCU1LMNrwL FhM7YqHXHgKGneDRVzeha7 OhFsDt2atDWggAqqPYgiFR JkXHBsYWluXGZzMjBccGFy YNVdVAUKQ1eLQWXUVWRFML PIT2VyMKWNJDDWREYPY695 ERRouuRxOLSzVTXTS2EHDN 9LNdWMDF3USkUDJAVPWOPS OVGZYRFEVX4FXIABDMaMTZ lUSVNccGFyICAgICAtIFBS M3rOFCHFTOLLZAtERJsNAd AIJODIUBHPKDEQZUJqF3Wy U8WWOQ3YAPTTCXIPZ5ymHL StGAXkAU9vZ0xKZkHAKeQo U08SVFSMTJLLVVZgIwMUHU HCXL0SQY9YIpfBSgAjUWST IFZJQUJMRSAgXHBhclxwYX DyMwGpLpJIcGViSYCwZO5h TW2MVqBrBWacXvSbPpSaDS AgMToyMyBQTVxwYXJcZnMy VMtkRKC8o2xszILsGAKbgC QbQlLoCRXfZOQdd9lbQQEc bGFuZzEwMzNcZnRuYmpcdW IdWDElLkHqa3dsi735jVCp v9gfRAJyMiC6jLVbTMQeyF lxwfr7cEhsHvGwZTBnl1uk cyBcZmNoYXJzZXQwIEFyaW XxS312ZMWcMKosc2bok8Zx KUNxsNMbq5N4NTPYOTzxAz DnW228n7gza1ioxnFqhQX0 FMAmFUN9KChrqmNvkkR8SQ janVAeIrG0TDgrmuEkVAmc ojBuvfPtEqr2NUVeR329RW O9rHzvw9fvCFO8NDGzIEIs CmfuMr3kxSEnM054RAVgZW PJTVIizWr8UEWhjkDrmjUi bZWGw946I592g1znOZHror XmaTcVyefkf5zsY026YEVe cGVydzEyMjQwXHBhcGVyaD N0IMSlBF9deiimVPomTRdj RSSpzzZ6RTDgvFJuZ7IyJE YhQP1shfvmAYI1HPlvMLZw IYZ5AwHtFBHnt3Wprqs2Jn Nqqy8rwx36XXR5f3OncCjd IHK3KFR1OjLpLe7oeIFcYZ JhNJ0lByZpmCPmCZIwle37 xAprAMijioOyoU0fFmFsDA IvxKSsZOPcHE4dzUIoKTRl tM9qhdqaBDEtPtVaheolGV QekRrdacUuYx7fbKjxETQ5 GKugZ0bkjB8lQrH4KLvzB2 lcfM2oNDr2PMdrcVB6RTYf cC9zFH9eriupf8ypWPcnIX lpNFPeykK4bxL6FEXmbROh J5JeqM7jGMKmFM6nkesyw5 hdMFT5WXrgMZIeAVO2XeKo QABkg1Dozjn4YgBdq1BviG SdLNwhR19vt384TPBihcVi G2bdnMLllxxzbBGzeyotJX smulU1JSUyLFKqORgmRACw XGZzMjBcbGFuZzEwMzNcaG ljaFxmMVxkYmNoXGYxXGxv I4qfGxCaQ5XzDQMiWnMutM TeVJyvsOC4HUWjMHVwg05l yUw4TGSemmvto8KwZYYynY MroAEnxG8tzhAan3woJTYp ARBjEYXxQ2ZhYEB1vJKrTF NupSHvpQM7QX8qqnJbMV9r ZGUgYnkgcmVzaWRlbnRzLC DyBJmrx1elPJ7uPQOmxLns mG4ksGM4VFFlw8drdRSxuT Xad5xiz4ZjapWvKQcwOIMl AWaoSEBsORHuQP4bFOPcpJ WsxoErv6J4OopzwDHkqaqo FjvcqcP5TPtrkkmsDPQtCG lvX3egHvZzBIUslDqvAbin u3WeLHEeMQIcYwiiuOXflY 0= Clinical Information (test code = [id number]) OSTEOMYELITIS/GANGRENE OF RIGHT FOURTH TOE Gross Description (test code = [id number]) k3pdjDVwFFQcsGNWRMKqXz jxsxRgVEXahBMlH8Pjqvur SSorDV9gVR8fvPysyBTofY BjQF2PQKSvPnTuDHVbeRFm vwAaIdYzBLYmxARfdIP1VY MhZO5aikftJTxaYBbiAFGp vnZ1DUYonDBxS4DqRLWkDC 8exeicGUV6RZkwwZ2criQA ZdksUu9ruOLeoOxcApFhOf NoYXJzZXQwXGZuaWwgQXJp CTq0iB5LIdpmXJE3KODUJb qbREJmIQ1Hp1vsYLTvlFFa VRV0ZMowpRHiDNQoISQyIE w4QASqVRqseIFoXC1keTuv PptkoKnfz2YpgQTdRXpbQM OvIXPrBDruPOOuPZ2SXfPb BZeLKuBkIcJ1ZcF0BXi8OT KTPqXdKoPmEHS3DRbvWSrm XOa0NDi1GNpHMdAfMoE3Ps N8JXtvZJV9CTR2ZTpaxLUq IFxcZiBBcmlhbCBcXGZzID ZyVDumEnguBHtlU14ozRyj oF7xCfDaMEKSTgOXO8VbNQ BhciANClxwbGFpblxlcGlj TmVzdERvYzEgDQpcbHRycG FyXGxpbjBccmluMCANClxs dHJjaFxmczIyIFNwZWNpbW SsPPYwqZTqfuMfIXa5GLBm iJ9iZv2ufNKmmR3noZZxVF zfLFL6kVXtJHYrXULjOHDd NY37G0FvpxVdQOopSUyssz ZjOsXuNZPfnymfzVFsPt26 cnRoIHRvZSIsIGFuZCBjb2 9hrZN6vtXtWoVnVIFopi4b rF4tOZBeBMZoCO11SOykOm 9vZManNg0oNSKkSSO9dCik lINpwvKlmZCtcfVoQ2HoKG KpMKIwlYB0lROvyLH1QHRx bsUhqIgfnZXeC6YzaIFxa1 rnuB7mRMPvRHVlu46wPOXd n0BljFfoqXedkHPzRTA6xo EnE5UtKFp7VZ3tvyDxZaFv P99zxJUykLgrCLkmyK4odZ qxXEJlxW3gDW7sTBFaOnRc kRjuu8AvNSWxy8KuwQyhtw YwIKAkeM6kOMFEhLWphZ7l PTemAQ4dcSjnHdIshdacXh B1tUFqNONtpEIcNSkqgWrs hiAypGnvtIFenSJ7oCkuj5 LqIIGakT4wbgLfhM6wIWUi ZXJlIGlzIGEgdGFuLXllbG kbqiQ4doK1XJ4qpLAhzQjq FFDhD3PrUOYdKVCeLAXqa3 4gKGFwcHJveGltYXRlbHkg Zs33LLmpSw13JLYaLBHww4 VbfIEhUQ1eLAJfRLSaz2Kh LDcic6RaJeRgSOZkMzU6kQ MyeU0kBGQ1tCJgQOokHbC6 ytC8iYDrpLHedXVgYNDdBV BsYXRlcmFsIHNpZGVzIHdo kDAnLPptax4peoCcDLJiMV Chx5neYEHzSWCyp6U1VDIf b2W8ZZOgYWTxF2Zvq40gdJ JrY9hwPPMmUJEoPBCrmHVu yzYoVvMhP73dBvDizFE2rM VlMh9sJGBzzKTdqgQvZ5Pl YXRlZCBzdXJmYWNlLiAgVG hlIHJlbWFpbmRlciBvZiB0 mFDbi3plihZmgqTlnNwkzE ZqnKLspof4gPFwBKFiiPKb r5q9dJXrf7giAYPua7DysW bhLf5qKIHlBDTkg22eEZnf BULfC7Nap28tMQG6wqNkOS ZlYWwgdGFuLXllbGxvdyB0 baR0NN0nxsIvVHIrkTskbQ m8VEKifc76ozKoeCFjr3Ze ZmFjZXMuICBSZXByZXNlbn OxqVi7WITbEJP0zI0bqlFl naKzq9RxoCj6bCDxZHtxFG YmGFLqUAIdq2iej8sozong ACXoZKdcuWSlO2A9qT6dSM 0zHPWeLGXlAFRAZe2vjVCe NI9UVRZhulPFDuBtB7Gvs3 8xN44tGIlltGMbDV2YVPG9 XVUejV1bj25bsQN3fXYerS GkwrDiWCE2gZ2cON5yfgow zhmnSI0iUoMtIHenTV46oV WwkAdqtWUsET4WYRN1NFAv rvBwAOnvKRU0xOK6iZT3ZG Kyh8GdBkGtSMgsrTJljGIp XBvkzZvbpvx4YGOeA2Mmd8 8gWPywUM47hHAzrEpyJPLe oUccf5dtQvXxBNRkkDIkOo bcWANsz92pgAHgUK7YIWQ2 FYTsq0RxSOQtP2Mfe41cAI SvxLAlg8MpqRP0cQRwHPOk i3cjn0megkicYBHsQOjhpB GoT8I1sB0kTYHqdkPJVdyl PVRsPNfAPKG3AJTwisYjtJ rgMXKHSC9PDMZmWBhjNYYw sTECSVY2CN9uZNgkrJXkda sbMAUxY6KmM0IkpqKwfAZl WLQgkuWsg6wpGOD9TNCfeK IxyPAmZfGzVfjuJWN2KHhp w8pjKMU0AIOqcGQhdLRhFR tfOcRhDnjdAUXdR3MgF6Ga cfY5FBi9 Disclaimer (test code = [id number]) r5ckwKTdXUNhr4yzBLEerP FuZzEwMzNcZnRuYmpcdWMx DWqmdfZqNUokh8SnK7HsYe AwMFxhbnNpXGRlZmxhbmcx GYZjQSI0nnSyNVElXSzbCL WkNMizSj1abAIocAajHqKm ZZRvt2yakyHJYUxvUyZqT5 88VEFeWDoag3yyq5VdREPe dMBhz0J8OVGWlxgyrXm9rA zbG99yz8E9GrpsS1frZKQb RAInK2VjQO8aHEQkArf0MO A0JCX0QGRdBHOuF7JeUV4d ZBAdnQQjWFo4l0dtyAmaVK OzZAO6n9ahAVflokJlQC1q cq2jjRe5q0gyblZnBVKoOQ YzbFWMOQTsH2LikThoAw2n jWv4xTsoEzclUXB4Tmc2GO 1qvf19pxk7tIfzDHYhahsc GeI3XJfiMGIjotxuJQj9EX bsKQLrmVS3CBZtxEEsM9Vc INBvHD2dfom4DDP6STafVM LaXkE9ZJFirGLoZFFudVqn DXmzl427NYD1WlKfPH9hM5 Dad3B6yE0pbVJwDFPkiWBz DxIeZMEpbx0vdFEfNYepg4 CkEZV3vxJ5qPLuvEGyLVCo HP75Cuzmw9YlVzsyu8XpH3 0ksPP3SAkgm1llIU3nUpE3 lpQyASgpw2tonS3eBwO3FW hgII0wLY7eOGIraX1ehksc XHBnYnJkcmhlYWRccGdicm LcQp5ajWxtLPD1RJbhX1qw bD6dStA2STytQ9nhiV8gVW m6WYvddFI6CNTzuS4fYY3i mscer1qdZKxsEGxdSPMtdv L0gnC8NHBaiXRtZ9TfpC5k ZVWqXS9itukmb9vuNSV6HP ktDFBuTCV2AsFeEAQka3Tt qdb1VtOny6SnjJNzHGxiD7 7uy567LJVvcrCgK1evjBPc kgjoeODiokzzZQrscqN6YY QblqYlb7BrFYMrWEG9YJfr KLdrqQHkHNRswAknb7wkA8 RscGFyXHBsYWluXGYxXGZz MjBcbGFuZzEwMzNcaGljaF kxVMgtVbLvOIBuVBfwO9zg RrNpS7FmUTQlVtQboPSvR2 ggVGhpcyByZXBvcnQgbWF5 BXwnD1i6CQEwcuBitDb6dh IvZlEvPBCqPML6ZMdzwGUz VFZpl9KxdczjsGMkUe1isZ QcGFDwyF5uBRBtPFOmNGqg ID3rgGt5HGIDeITyeWHtMw QVNOAeME88mtGsRWBJbtvd g0U7NJklPKChf7LibZNaH8 pxp6MlTJErd64wHS9kg7H5 j7ymMWC0XE3wu3AlRIBtrJ EyjYQySTMdw9Hdjqquc3Bf FEKwpsMpr7WyAKYfqgMqgR FdKQLoiyHmtd4gqlJpIRHt NUZzK3AkkmmxxGrwxkYbPF Hkrx8hmcOfCZD6LMMFYZMf VOWnf0EsjA9bpHMOURB1yR Mlev7aqrCIkLByBTLksc69 UUBgWX5nN9zlYIYsYUYakj VthFEpa6YxKHTdyYG5qMEi UQ3IOsVVg14tTNXtQZPKlk BnSXYhoNbhqLR8qaF9cY0d IChGREEpLlx+IFRoZSBGRE HbVT8modKcw4XwxsDspWil SLCsdYJow7PfkVZbf4BkkD uvk9SzmCNuzOAoKQ7eEUSu clxwYXIgVVRNQiBMYWJvcm W2z7RiIUJrWIRmWAR8fDxy vmv7YBJfgT2jTOEuP5tprk fcKFhfGHDju5SidF9mkWAO kRDgm3HhwHPndEEEkKGqKA 4fdnVbQDdNNLmOTTO0fyWk GRCnk9HsPCegX5jyW49xfZ ajqDh5uFN1PQJ4sX0zVol+ IFxwYXJccGFyIEFwcHJvcH FxUDPqzDosmhFeM4UprhPt iB3ysIKwxjEoCE1fIM3pE2 U0iTXkSGBtfbZeb7mkTLfu dmUgYmVlbiByZXZpZXdlZC Ftc7YeIKtsGFW4MRwlobHp bmNsdWRpbmcgSCZFLCBTcG NouVYdPUY9HWtbkrNobmKu BL5kiF7bqUdgpG8vaHPmjL Y4kgetQMHmATKkbOzcKZFg BD2djCGoSSTswlAVcAigoX IwsR5dS6TiJXKjSFKcav8o EFRzeT5aXWyqb9YtrjkgKY YrMBOlMLXardRpsx6aMVHq nVKWJZ3PYGdlhLHpc1Jjnp IiQ3bDASP0ATXaBlDhFuvj QFOhcIMzkHZrHLSpit36QN KyeO8arCtkWXPrcL6xiR8c iFkmcA6sIuJwTfKxOZhnFJ 8lYHMqL4rktNEuTZTcZFKz H7wkBmJcdS7fdBdcXWzrUv KuQtNkUYubCSA5yJ== Embedded Images (test code = [id number]) [facility] [id number] 20:37:10* Test Item Value Reference Range Interpretation Comme nts Case Report (test code = 8370557092) Surgical Pathology ?Case: [id number] ? Authorizing Provider: ?Nomi Robles Jr., JAANY ? Collected: ? 07/05/2021 1842 ?Ordering Location: ? ? [facility] ? ? ?Received: ?07/05/2021 1948 ? [facility] ?Pathologist: ? Eduardo Ordaz, PHD ?Specimen: ? ?TOE, RIGHT FOURTH TOE ? Final Diagnosis (test code = 9946047302) h3bujKXqYTGkn6ehCOHouY FuZzEwMzNcZnRuYmpcdWMx IHtccnRmMVxlcGljOTYwMV vljxIwKFHeuMTlB7Afcwyo NKatMP1iFC6yhKwzoZMteK HlOPQeJcOmp6vui388uAWd q9zdBBEDbmbxiAf2oWhwV6 8dc3Y7VvhxW76qkLPjXDY7 YOVfAENdyQIrADPaTKW7WR RdeRAoY8jdTCCyUT6bpadz NIhiCBvlLRAokQX5KNTayP NcK8IaVOLsHSpeKLFwtcg3 ByTrAg7sgHHvnYaiYOrtXR JkXHBsYWluXGZzMjBccGFy ZWVpYHGRX1wOVIDTHTNFDE YNN2JwWUYBCRRZQXRNE601 KWHktmInBKHpAOXHR0IXJX 4ZBfCYKO1FXnRLPXQYHEDD WXVOXUAHDP6XETFXXQbTDO lUSVNccGFyICAgICAtIFBS H8wODXRSNOFVUPuILQrKZr XEONPMYGTRAMMUWEQeE3Ie S8ZOWP3FEAGRPMPHA5qhBV SzFMAjZJ7hL5lQQgWEHvRf E02XPWNGDXDCGCWpStSECU QYRK5FAU4MAdbVLvPbSJYI IFZJQUJMRSAgXHBhclxwYX LfFdTiJiDSrOOoUESmOY7r FC4FRiSwUEgzLkHfZlBiTM AgMToyMyBQTVxwYXJcZnMy SZorJKP7j8dqaNEdMABbrA SpWcCuVEBrQPIzl5baYSBu bGFuZzEwMzNcZnRuYmpcdW WmTFGbTnGzm9xfe735zMTr e9czIQOwItH8yBNqGIXhdN mbyot9mTvdKsDbGHLuz7rb cyBcZmNoYXJzZXQwIEFyaW WnW652DETwMJzvr3ajs9Hc ALIbfILmr9X8AIWRJRvlYt YkZ475a1lmt3xmqkVulLE7 HNYlFAZ9BJvenbXscvM6JD rnxERsKfZ8RRcqhdVgOCct sxDiooZqFjy7ZLTvI908XL G5tZsdw0npHIG3RCBpFRVo ZiqsOw2ghVErZ846XQQsZW OERUOzvQs1BRNswdQjcbPg xPNDn344D510c3ndWFOwst QbcMjJydwqm9uwX395TKSb cGVydzEyMjQwXHBhcGVyaD M0MLYnUY3ywcdpGHfxAMoe LYJvvqW7YXPkvJBnC5UhSB EmTO9gpsofYKU6UHojCRDo UBJ0YlFvHMSdc3Uwbxh6Cw Htkb1zhj35QMD8c1QjlKyi UFJ6BKA6ZpFgIj0jaMZpCM CvIM2rDcLftCWsWBHpgw37 oWszBBgbsnZqfS2zBzAhYC SvcUHdLPLcZZ2kfZTwTSJk vQ5izxczSVGfJfMipvcuZJ VjyBrfsaPzRa7pcMioASP4 VHdyA5pyjM4mJxB6XCjpS2 hwzG0fXJo4IAdmpLW4JIJz aG3aCC9imssjc1jzCQukBL leHWQbgxW9xwG4GRPcrFXk Z1YywW6nPOXsNP5pdqetu2 vcCQP7JQkrRCSsHPF7ZtYr WDWsx7Fdbwy5OmJmm9QclO MvHGdoT79fl286KOSphqYm Y1hshKOglixpaGObbjulZP xygfT9XCCqRVVfYZlmUWUz XGZzMjBcbGFuZzEwMzNcaG ljaFxmMVxkYmNoXGYxXGxv Q1opNuXnF3QqGKQxPdRurD HaRUcwpKU4PIDnBUZdh62u zHp2EUSsebnjk3ImPCPhbS RemQDehF3fblBzx7xoLYCn CALnQLXhU6KmMKN5yAGbAR YonYNwgNQ6WD4yiqFyRV3u ZGUgYnkgcmVzaWRlbnRzLC NfKCwct8ivHT3jNGWfxWmb hD0utHM6ONBvp6vlbVOatN Qmz5flm1VrdbOyZHmzOSGd HLecTHEbETKcWN6mYIGcgL VepoQim5J1LuuxoPUwmwjf BjqpqeF4RPjvydvrWXRmTQ unK9zdAtUlLEKjlJweTzcb w5AsLGJxNDRbSrrfnHWswF 0= Clinical Information (test code = [id number]) OSTEOMYELITIS/GANGRENE OF RIGHT FOURTH TOE Gross Description (test code = 5786301089) x3yxjKOtPFPtnPGBSKIpSa vsraQzCZFmpJHpB2Snkmfd YLtrGA3bRE5vePjkmQVneN NuBU8AQYOmTlXnCEMtsKWp qjHoBlOhJJQmzSXtzQO5GN AzFR1qfcmbQNloSAmkHPAf oxZ4EOZxbHExV7AfBDTtSZ 2foikeFRW2RKlysX0racZF EjalSz1dlSSlzKmvReKfCi NoYXJzZXQwXGZuaWwgQXJp KTx4tC0ZYdvhSUA5WAQPEz izESXkCL1Uq7qdVYJylOUv WGX1LMdpcLYiYXEeKFOvAI b8ZJNmOYkysGQuGK4bsDlt PnpndUhgm4WukPXsVDzqQV NqEKWuKFztZPPuGH0BPzRc DQeWIyNxBtN5ZbP0REb2RX ESTzZnLjEvTXC3GGlsLZjf WKq0EWj4AMoRDxTpUyD0Hr O2IOdqORE0OYB9ENzfrYBk IFxcZiBBcmlhbCBcXGZzID ErBMiuUsnuDSqvU06xlRla bY9rBjYmMRENGnYNN7FcCB BhciANClxwbGFpblxlcGlj TmVzdERvYzEgDQpcbHRycG FyXGxpbjBccmluMCANClxs dHJjaFxmczIyIFNwZWNpbW RbNBOyzXXpafLbPVc4FHUi nA0zSm2rwBHdsZ7uwKWvKS mxFOT6zAIqEAWuDGNqMLTd CG98D2OfpuFtBZtfWIqouf LrRfOeBCPyykiowOTuCn09 cnRoIHRvZSIsIGFuZCBjb2 0isEI6vxImRqLlAOTrlw1z tR2fIMChDAJtGI37DPoqSf 6aXMywGa4zVIKbXBG1rGen xBTewxXufLTyoqVuS9YiRM EtPUOtjCG6jWRakLW0BEHo noSjyBcjtGNzH5BqiYLkq6 dezV9tBZIePFRtg74hXRPe x2VecAvxqZxfwHKoUKR9np UuT0QaFMy6OQ5dggKvEpOb H25piQTpoVqzJGpdtU8dqK nxRUOyxW3oRY3pXICaCxYl pZjio8QgKARpn7OwuNjlxf DwTHBqoP9oGESDyBSkaA9s WVmpDJ8arFmdZlYcxhiyUx R7yDOgIZUkhBBwUOqusRrt czZntIxewDOenAB0zBgeq8 PzYRDsxM9frcAmuJ4jAZCc ZXJlIGlzIGEgdGFuLXllbG qfkvB0nyJ9LA4gpXAxuGbg UCHuK4QyYCUgFDTlWFLhy9 4gKGFwcHJveGltYXRlbHkg Eq19PQyeYf31NVTiQRFil1 PlrYKsZM3oYQMjHEPen0Et DLfvi6ZeOeNuJMInWhO9kV FkuD2eAEP2qDLfTGsxWdL2 fdC8zWMgoLDiuXNpMUQnCT BsYXRlcmFsIHNpZGVzIHdo xXKdYLddru5ongZzSHNmVP Ltc9vhPIMjSLCru3S8NMYd j4F1APQgZSEkZ3Nst50dbV GiI3pmZRXdYBRbWSHlrJOr sqEdIrSsL06jQbSmpQB5qY FxUi7tVJTujXFeqhSaZ6Gs YXRlZCBzdXJmYWNlLiAgVG hlIHJlbWFpbmRlciBvZiB0 aSEme2iymmHyueWkxLxsiX PayZZkzao8eWCeKFMmeVTg r8s0aFAxj7bkKHTsy6BbqT lgVx9bHGUjUWNuw74iWRnj PQRmS9Yqn94kFLP3mdFvUL ZlYWwgdGFuLXllbGxvdyB0 plX1JP1tluNdWLIurSuczQ z1OSGepb56wuUzmAQpg9Jc ZmFjZXMuICBSZXByZXNlbn ObjMm3GJQtCMU6jQ0yjcKg kzAff3TzoXk3jXZnYFgtTM EqMPGsACNir3xma4igxvpx NGFzHBuzcCHlD9J1eY7zDN 4aPUSqRQPfVCTFWq7upYNy WF2MQIJmywERJxDcJ1Rub1 0hO56kMAnxrQDjDU5XTEE0 YYUfaY9cy93ogFR9mDEaaZ FaiuYyRUM4eT5jLC5tcoqx qhkfCZ0nRxAsFUmlGP04qF QbjCbzfTAzHP9NPJB8YXZk hsDiWNksAOJ2zQK3dJV2VB Ajp8McFtDzBTsydQQdpHJn SRodtWptrrf5DRKeN1Meh9 9nPFipUP33lCGciNgzEJRa wHhyl9zsOzTmMFPvpHTlDu oaCTXnd20goPAiTL7NJWA8 MIBqm2VqXPWjA0Why11eFJ JrpQHkc4PjnEZ8fKMqXBXk k9prj3slqxxnEZBoUDdlqE EgB6K3qW8dVFLjouIHDxmi FKTeSHnYJVZ1BXYbkmXhcE ngPWNBOQ0CSTBiCQdnDHYz hLRFSQR6LV7rLVokoOQdco phFMJqO4ZyB0XprqSzcXTx FBGowmZdt2hjKDK5UHUucR CbhKEdZdSoUygwGSO0YLeb k4qtAVU8WPDjhXRfeXMbRW fqSxXvGmozVWBxP3UeG2Jl mlT8HBg6 Disclaimer (test code = [id number]) m3bqjUFyUZFet7llDYCueA FuZzEwMzNcZnRuYmpcdWMx EQbsotEsLHlio2JsB6JfWm AwMFxhbnNpXGRlZmxhbmcx EDTqLVV4yeNnGQMrVAgpOS DtIAysWf8gdRByrFjrTyTc ZDQmo7mczhKWILihQdMfV3 56QOGbWEotz5inv1RqTFZv xTChd7F3CXBFnpxczNd8gN vmO80yj2M5JfwhP5baNRGa SFEgS6JgTU3bWYUdEzf0YS N7UFX0OGJkOSHkP4GjTV6b AANpuESvNEt4i5ggeYvjTO YaZKG1s3yjDUcxpvDfYS3v mv3jjHl8n1qhhiQkYJOrUU YkqCAFETDfV3FerAzuVo4j rXu4mZttFeexKZY5Fdi0EN 4mdf76fip9fFlpGWLkwztv LrW7RCtoBPCozqgsDJz6LL gyTNKydQY5UIJpgHEjM7Gg JMBtFZ7ztwx2UKX1RMavXU EtKeM3XYVizCEcBWIpeMuv YAemq827RZU0YoWgGG4dH1 Vsg1G8uS0tqJNeQILfpTLk CwFrLNUnvx8grKVdZFvga1 DpDAG3rhE5kEJayIDmMQVp RN39Iflpi6QiBijur5FdN0 6ilSF8AHnfc7wxKV7rOnW7 unTnJCnfw2tgaS7yCzN7IW meBV8vOB6sOCQukP9vcbzh XHBnYnJkcmhlYWRccGdicm GdGj9mfTpgBXK7TIlcW6ys nJ4uNkE1OWgxY1hukB8gAK a9DGdvkYF6XPIpuN3jAX2h dvrxk5bvXIzvAZzcONDdjk K7jbP9UIRzyMLeM9EzwK5w GHDdVW1zwwhyg8nxSWF8BA nbJXIfIRR5EqUvJQZkm9Uw hea6UbSnq4XcnZIiYMrlW2 1ra567DNSomfKiE7cxxEUw qcjvhNKhugstGAemkgJ2PE BzmiEcc1DaACKgTWH9UFur XGoqfNUoOBKnvHpfy0foS0 RscGFyXHBsYWluXGYxXGZz MjBcbGFuZzEwMzNcaGljaF dzYQyzFyFiXWQsENisX3rj WaSgU6DfXCHhBpTvyBTyM3 ggVGhpcyByZXBvcnQgbWF5 MOzjC7u8ASDcdkKcoEv2bg CgSqPrQFGhKBU8LBwxrHQe BXVok9DlqyrjjUOwCa4prE MsSIRaaM6oTROjBVRkHWce GX0flFy4TCYAdQEgkOUmNz MTNWDuTM09roIrGSILtvhv d9Z9JVsrLIRxx4OefDYbO4 lqj9TrOMMck86tHI4ak3N7 j1rjIXX0ZH4dg7QoRENlxF VvqWTyJVWjt0Dqrvbpo1Si XHKecqXxg8SeRSDnxoCakL WkSMYbpjMmrq3apuTsYSMe ELOtG6PzvnkytKlmulUdHN Akox9shvSfYJH5OPHCFBRt FAWyz0PkeW8kkWKKWTO1mX Hvjt1slhYSoWZfAYMqcf47 FHVcEU9jX8xqDPUrEVNkcl HwmZDwy1PtFQQjhKD6aQXu XU7FEjFHa83hMPBdBURSjj UeHCYxfIuyeEB1wmX0iV6g IChGREEpLlx+IFRoZSBGRE PfHL7tojNgv2GhiiKlxDui WXIxdRMao4QstTDae6OfqT neg9UpcCOanETrFF4yHOXm clxwYXIgVVRNQiBMYWJvcm Y1u4QnACEtELJuPJC2iDzo jqw1JLOzqN2aXFTyP6imsg xfUByfGBVqy5TgvZ4duXJF xBNuo3PvxGHvmIZSwEMjHK 8bkhErBEnGDSuUQOP6ueFr WNDxm2OqPSbiQ8doT99acU osfMf5fIC2NXV3eD8zQtc+ IFxwYXJccGFyIEFwcHJvcH XeVOSoqBmbywJxD5DzrsSj oY8xqIPcrwDuYM8gGA8dZ4 U0jBLmCKHqdiWtn4stLMdf dmUgYmVlbiByZXZpZXdlZC Gqn0ViDBkaABR4YOiyurDp bmNsdWRpbmcgSCZFLCBTcG KitHUaXZH3ZYvffsAnyhUc AE0bbN3hdVpohI4txSRkbR R3qoxdCNOqVPTqvJvfCVYk OM7sdUObIKDkqpQXeNkexX MwuE3sJ7IbMICfOCPrcj7s HINfqU7yLVysj1OckoqkUD KoTNDeAQSpvtKfcj2jEVEv cTTVAY5UDTvgpWEvx4Ceys EyS1iMAFI6LIExQiUjAhuw PPFmdIAmvAOvPSGnkj00JM DnvH1zsDbfKJGeaP4jtL2e hTchaU7xJaMcJeMhDQsnYR 8wAFTvL4xjtPTiITVjSBKe F2glXtNayT3gkXogREneTc WcTyChXFsaVCD0bD== Embedded Images (test code = [id number]) [facility] GLUCOSE (AUTOMATED)2021-07-07 17:04:49* Test Item Value Reference Range Interpretation Comme nts POCT GLU (test code = 9752507475) 295 mg/dL 70-110 H Lab Interpretation (test cod e = 95885-4) Abnormal [facility] GLUCOSE (AUTOMATED)2021-07-07 17:04:49* Test Item Value Reference Range Interpretation Comme nts POCT GLU (test code = 4357892667) 295 mg/dL 70-110 H Lab Interpretation (test cod e = 40518-9) Abnormal [facility] GLUCOSE (AUTOMATED)2021-07-07 14:55:34* Test Item Value Reference Range Interpretation Comme nts POCT GLU (test code = 9259527072) 191 mg/dL 70-110 H Lab Interpretation (test cod e = 80702-1) Abnormal [facility] GLUCOSE (AUTOMATED)2021-07-07 14:55:34* Test Item Value Reference Range Interpretation Comme nts POCT GLU (test code = 3570338572) 191 mg/dL 70-110 H Lab Interpretation (test cod e = 46522-3) Abnormal [facility] METABOLIC PANEL (NA, K, CL, CO2, GLUCOSE, BUN, CREATININE, CA)2021-07-07 13:14:37* Test Item Value Reference Range Interpretation Comme nts NA (test code = 2228422852) 139 mmol/L 135-145 K (test code = 1818671299) 3.9 mmol/L 3.5-5.0 CL (test code = 4054875872) 111 mmol/L 98-108 H CO2 TOTAL (test code = 9455909074) 22 mmol/L 23-31 L AGAP (test code = 2788266603) 2-16 BUN (test code = 1854332663) 19 mg/dL 7-23 GLUCOSE (test code = 1378088843) 189 mg/dL 70-110 H CREATININE (test code = 7088373789) 0.87 mg/dL 0.60-1.25 CALCIUM (test code = 2473561187) 8.5 mg/dL 8.6-10.6 L eGFR (test code = 1785010226) mL/min/1.73m2 BRYSON (test code = BRYSON) Association of [...] or abnormalities in imaging tests). Lab Interpretation (test code = 34318-1) [facility] (NA, K, CL, CO2, GLUCOSE, BUN, CREATININE, CA)2021-07-07 13:14:37* Test Item Value Reference Range Interpretation Comme nts NA (test code = 2041078712) 139 mmol/L 135-145 K (test code = 2238765226) 3.9 mmol/L 3.5-5.0 CL (test code = 5499226407) 111 mmol/L 98-108 H CO2 TOTAL (test code = 1125315054) 22 mmol/L 23-31 L AGAP (test code = 3670220798) 2-16 BUN (test code = 2960042817) 19 mg/dL 7-23 GLUCOSE (test code = 7914388315) 189 mg/dL 70-110 H CREATININE (test code = 8848349915) 0.87 mg/dL 0.60-1.25 CALCIUM (test code = 3387430874) 8.5 mg/dL 8.6-10.6 L eGFR (test code = 7173712907) mL/min/1.73m2 BRYSON (test code = BRYSON) Association of [...] or abnormalities in imaging tests). Lab Interpretation (test code = 41581-9) Abnormal [facility] GLUCOSE (AUTOMATED)2021-07-07 13:02:32* Test Item Value Reference Range Interpretation Comme nts POCT GLU (test code = 4778648999) 174 mg/dL 70-110 H Lab Interpretation (test cod e = 76217-6) Abnormal [facility] GLUCOSE (AUTOMATED)2021-07-07 13:02:32* Test Item Value Reference Range Interpretation Comme [facility] POCT GLU (test code = 8942812877) 174 mg/dL 70-110 H Lab Interpretation (test cod e = 52488-6) Abnormal [facility] WITH [id number] 11:32:04* Test Item Value Reference Range Interpretation Comme nts WBC (test code = 6690-2) See_Comment [Automated messa ge] The system which generated this result transmitted reference range: 4.20 - 10.70 10*3/?L. The reference range was not used to interpret this result as normal/abnormal. RBC (test code = 789-8) See_Comment L [Automated messa ge] The system which generated this result transmitted reference range: 4.26 - 5.52 10*6/?L. The reference range was not used to interpret this result as normal/abnormal. HGB (test code = 718-7) 10.1 g/dL 12.2-16.4 L HCT (test code = 4544-3) 30.5 % 38.4-49.3 L MCV (test code = 787-2) 93.8 fL 81.7-95.6 MCH (test code = 785-6) 31.1 pg 26.1-32.7 MCHC (test code = 786-4) 33.1 g/dL 31.2-35.0 RDW-SD (test code = 31230-4) 43.2 fL 38.5-51.6 RDW-CV (test code = 788-0) 12.5 % 12.1-15.4 PLT (test code = 777-3) See_Comment [Automated messa ge] The system which generated this result transmitted reference range: 150 - 328 10*3/?L. The reference range was not used to interpret this result as normal/abnormal. MPV (test code = 88541-1) 12.2 fL 9.8-13.0 NRBC/100 WBC (test code = 7767293411) See_Comment [Automated [employer] ssage] The system which generated this result transmitted reference range: 0.0 - 10.0 /100 WBCs. The reference range was not used to interpret this result as normal/abnormal. NRBC x10^3 (test code = 7020925452) <0.01 See_Comment [Automated messa ge] The system which generated this result transmitted reference range: 10*3/?L. The reference range was not used to interpret this result as normal/abnormal. GRAN MAT (NEUT) % (test code = 770-8) 66.0 % IMM GRAN % (test code = 2302543715) 0.50 % LYMPH % (test code = 736-9) 19.7 % MONO % (test code = 5905-5) 11.3 % EOS % (test code = 713-8) 2.1 % BASO % (test code = 706-2) 0.4 % GRAN MAT x10^3(ANC) (test code = 1448718271) 6.82 10*3/uL 1.99-6.95 IMM GRAN x10^3 (test code = 4950625895) 0.05 10*3/uL 0.00-0.06 LYMPH x10^3 (test code = 731-0) 2.03 10*3/uL 1.09-3.23 MONO x10^3 (test code = 742-7) 1.17 10*3/uL 0.36-1.02 H EOS x10^3 (test code = 711-2) 0.22 10*3/uL 0.06-0.53 BASO x10^3 (test code = 704-7) 0.04 10*3/uL 0.01-0.09 Lab Interpretation (test code = 19212-5) Abnormal [facility] WITH [id number] 11:32:04* Test Item Value Reference Range Interpretation Comme nts WBC (test code = 6690-2) See_Comment [Automated messa ge] The system which generated this result transmitted reference range: 4.20 - 10.70 10*3/?L. The reference range was not used to interpret this result as normal/abnormal. RBC (test code = 789-8) See_Comment L [Automated messa ge] The system which generated this result transmitted reference range: 4.26 - 5.52 10*6/?L. The reference range was not used to interpret this result as normal/abnormal. HGB (test code = 718-7) 10.1 g/dL 12.2-16.4 L HCT (test code = 4544-3) 30.5 % 38.4-49.3 L MCV (test code = 787-2) 93.8 fL 81.7-95.6 MCH (test code = 785-6) 31.1 pg 26.1-32.7 MCHC (test code = 786-4) 33.1 g/dL 31.2-35.0 RDW-SD (test code = 63471-0) 43.2 fL 38.5-51.6 RDW-CV (test code = 788-0) 12.5 % 12.1-15.4 PLT (test code = 777-3) See_Comment [Automated messa ge] The system which generated this result transmitted reference range: 150 - 328 10*3/?L. The reference range was not used to interpret this result as normal/abnormal. MPV (test code = 40722-5) 12.2 fL 9.8-13.0 NRBC/100 WBC (test code = 1542786495) See_Comment [Automated Aton[employer] ssage] The system which generated this result transmitted reference range: 0.0 - 10.0 /100 WBCs. The reference range was not used to interpret this result as normal/abnormal. NRBC x10^3 (test code = 8671980586) <0.01 See_Comment [Automated messa ge] The system which generated this result transmitted reference range: 10*3/?L. The reference range was not used to interpret this result as normal/abnormal. GRAN MAT (NEUT) % (test code = 770-8) 66.0 % IMM GRAN % (test code = 5216485081) 0.50 % LYMPH % (test code = 736-9) 19.7 % MONO % (test code = 5905-5) 11.3 % EOS % (test code = 713-8) 2.1 % BASO % (test code = 706-2) 0.4 % GRAN MAT x10^3(ANC) (test code = 4413810845) 6.82 10*3/uL 1.99-6.95 IMM GRAN x10^3 (test code = 5361793342) 0.05 10*3/uL 0.00-0.06 LYMPH x10^3 (test code = 731-0) 2.03 10*3/uL 1.09-3.23 MONO x10^3 (test code = 742-7) 1.17 10*3/uL 0.36-1.02 H EOS x10^3 (test code = 711-2) 0.22 10*3/uL 0.06-0.53 BASO x10^3 (test code = 704-7) 0.04 10*3/uL 0.01-0.09 Lab Interpretation (test code = 05965-1) Abnormal [facility] GLUCOSE (AUTOMATED)2021-07-07 05:09:45* Test Item Value Reference Range Interpretation Comme nts POCT GLU (test code = 3226645184) 144 mg/dL 70-110 H Lab Interpretation (test cod e = 81158-6) Abnormal [facility] GLUCOSE (AUTOMATED)2021-07-07 05:09:45* Test Item Value Reference Range Interpretation Comme nts POCT GLU (test code = 9816605635) 144 mg/dL 70-110 H Lab Interpretation (test cod e = 93223-8) Abnormal [facility] GLUCOSE (AUTOMATED)2021-07-06 21:53:08* Test Item Value Reference Range Interpretation Comme nts POCT GLU (test code = 7644079279) 175 mg/dL 70-110 H Lab Interpretation (test cod e = 24699-6) Abnormal [facility] GLUCOSE (AUTOMATED)2021-07-06 21:53:08* Test Item Value Reference Range Interpretation Comme nts POCT GLU (test code = 8150788267) 175 mg/dL 70-110 H Lab Interpretation (test cod e = 79030-7) Abnormal [facility] WITH [id number] 18:53:33* Test Item Value Reference Range Interpretation Comme nts WBC (test code = 6690-2) See_Comment H [Automated messa ge] The system which generated this result transmitted reference range: 4.20 - 10.70 10*3/?L. The reference range was not used to interpret this result as normal/abnormal. RBC (test code = 789-8) See_Comment L [Automated messa ge] The system which generated this result transmitted reference range: 4.26 - 5.52 10*6/?L. The reference range was not used to interpret this result as normal/abnormal. HGB (test code = 718-7) 10.4 g/dL 12.2-16.4 L HCT (test code = 4544-3) 31.0 % 38.4-49.3 L MCV (test code = 787-2) 92.8 fL 81.7-95.6 MCH (test code = 785-6) 31.1 pg 26.1-32.7 MCHC (test code = 786-4) 33.5 g/dL 31.2-35.0 RDW-SD (test code = 00306-4) 42.3 fL 38.5-51.6 RDW-CV (test code = 788-0) 12.4 % 12.1-15.4 PLT (test code = 777-3) See_Comment [Automated messa ge] The system which generated this result transmitted reference range: 150 - 328 10*3/?L. The reference range was not used to interpret this result as normal/abnormal. MPV (test code = 89725-2) 12.0 fL 9.8-13.0 NRBC/100 WBC (test code = 9827378249) See_Comment [Automated me ssage] The system which generated this result transmitted reference range: 0.0 - 10.0 /100 WBCs. The reference range was not used to interpret this result as normal/abnormal. NRBC x10^3 (test code = 9337010204) <0.01 See_Comment [Automated messa ge] The system which generated this result transmitted reference range: 10*3/?L. The reference range was not used to interpret this result as normal/abnormal. GRAN MAT (NEUT) % (test code = 770-8) 71.5 % IMM GRAN % (test code = 6768142606) 0.40 % LYMPH % (test code = 736-9) 16.7 % MONO % (test code = 5905-5) 10.6 % EOS % (test code = 713-8) 0.5 % BASO % (test code = 706-2) 0.3 % GRAN MAT x10^3(ANC) (test code = 0835645438) 7.86 10*3/uL 1.99-6.95 H IMM GRAN x10^3 (test code = 4039810292) 0.04 10*3/uL 0.00-0.06 LYMPH x10^3 (test code = 731-0) 1.84 10*3/uL 1.09-3.23 MONO x10^3 (test code = 742-7) 1.16 10*3/uL 0.36-1.02 H EOS x10^3 (test code = 711-2) 0.06 10*3/uL 0.06-0.53 BASO x10^3 (test code = 704-7) 0.03 10*3/uL 0.01-0.09 Lab Interpretation (test code = 55632-0) Abnormal [facility] WITH [id number] 18:53:33* Test Item Value Reference Range Interpretation Comme nts WBC (test code = 6690-2) See_Comment H [Automated messa ge] The system which generated this result transmitted reference range: 4.20 - 10.70 10*3/?L. The reference range was not used to interpret this result as normal/abnormal. RBC (test code = 789-8) See_Comment L [Automated messa ge] The system which generated this result transmitted reference range: 4.26 - 5.52 10*6/?L. The reference range was not used to interpret this result as normal/abnormal. HGB (test code = 718-7) 10.4 g/dL 12.2-16.4 L HCT (test code = 4544-3) 31.0 % 38.4-49.3 L MCV (test code = 787-2) 92.8 fL 81.7-95.6 MCH (test code = 785-6) 31.1 pg 26.1-32.7 MCHC (test code = 786-4) 33.5 g/dL 31.2-35.0 RDW-SD (test code = 48041-1) 42.3 fL 38.5-51.6 RDW-CV (test code = 788-0) 12.4 % 12.1-15.4 PLT (test code = 777-3) See_Comment [Automated messa ge] The system which generated this result transmitted reference range: 150 - 328 10*3/?L. The reference range was not used to interpret this result as normal/abnormal. MPV (test code = 77067-5) 12.0 fL 9.8-13.0 NRBC/100 WBC (test code = 0060583327) See_Comment [Automated Atonarp ssage] The system which generated this result transmitted reference range: 0.0 - 10.0 /100 WBCs. The reference range was not used to interpret this result as normal/abnormal. NRBC x10^3 (test code = 2788768695) <0.01 See_Comment [Automated messa ge] The system which generated this result transmitted reference range: 10*3/?L. The reference range was not used to interpret this result as normal/abnormal. GRAN MAT (NEUT) % (test code = 770-8) 71.5 % IMM GRAN % (test code = 4563655190) 0.40 % LYMPH % (test code = 736-9) 16.7 % MONO % (test code = 5905-5) 10.6 % EOS % (test code = 713-8) 0.5 % BASO % (test code = 706-2) 0.3 % GRAN MAT x10^3(ANC) (test code = 3252750097) 7.86 10*3/uL 1.99-6.95 H IMM GRAN x10^3 (test code = 5372607330) 0.04 10*3/uL 0.00-0.06 LYMPH x10^3 (test code = 731-0) 1.84 10*3/uL 1.09-3.23 MONO x10^3 (test code = 742-7) 1.16 10*3/uL 0.36-1.02 H EOS x10^3 (test code = 711-2) 0.06 10*3/uL 0.06-0.53 BASO x10^3 (test code = 704-7) 0.03 10*3/uL 0.01-0.09 Lab Interpretation (test code = 09429-9) Abnormal [facility] WITH [id number] 18:53:33* Test Item Value Reference Range Interpretation Comme nts WBC (test code = 6690-2) See_Comment H [Automated messa ge] The system which generated this result transmitted reference range: 4.20 - 10.70 10*3/?L. The reference range was not used to interpret this result as normal/abnormal. RBC (test code = 789-8) See_Comment L [Automated messa ge] The system which generated this result transmitted reference range: 4.26 - 5.52 10*6/?L. The reference range was not used to interpret this result as normal/abnormal. HGB (test code = 718-7) 10.4 g/dL 12.2-16.4 L HCT (test code = 4544-3) 31.0 % 38.4-49.3 L MCV (test code = 787-2) 92.8 fL 81.7-95.6 MCH (test code = 785-6) 31.1 pg 26.1-32.7 MCHC (test code = 786-4) 33.5 g/dL 31.2-35.0 RDW-SD (test code = 90352-8) 42.3 fL 38.5-51.6 RDW-CV (test code = 788-0) 12.4 % 12.1-15.4 PLT (test code = 777-3) See_Comment [Automated [employer] ge] The system which generated this result transmitted reference range: 150 - 328 10*3/?L. The reference range was not used to interpret this result as normal/abnormal. MPV (test code = 37824-1) 12.0 fL 9.8-13.0 NRBC/100 WBC (test code = 4955511121) See_Comment [Automated me ssage] The system which generated this result transmitted reference range: 0.0 - 10.0 /100 WBCs. The reference range was not used to interpret this result as normal/abnormal. NRBC x10^3 (test code = 7594280218) <0.01 See_Comment [Automated messa ge] The system which generated this result transmitted reference range: 10*3/?L. The reference range was not used to interpret this result as normal/abnormal. GRAN MAT (NEUT) % (test code = 770-8) 71.5 % IMM GRAN % (test code = 2760142680) 0.40 % LYMPH % (test code = 736-9) 16.7 % MONO % (test code = 5905-5) 10.6 % EOS % (test code = 713-8) 0.5 % BASO % (test code = 706-2) 0.3 % GRAN MAT x10^3(ANC) (test code = 9112042852) 7.86 10*3/uL 1.99-6.95 H IMM GRAN x10^3 (test code = 7984956854) 0.04 10*3/uL 0.00-0.06 LYMPH x10^3 (test code = 731-0) 1.84 10*3/uL 1.09-3.23 MONO x10^3 (test code = 742-7) 1.16 10*3/uL 0.36-1.02 H EOS x10^3 (test code = 711-2) 0.06 10*3/uL 0.06-0.53 BASO x10^3 (test code = 704-7) 0.03 10*3/uL 0.01-0.09 Lab Interpretation (test code = 25409-5) [facility] Please draw trough BEFORE the 4th dose scheduled at 1200, but no more than 60 mins before the dose is due.2021-07-06 17:34:01* Test Item Value Reference Range Interpretation Comme nts VANCO TROUGH (test code = 8166770540) 13.4 ug/mL 10.0-20.0 BRYSON (test code = BRYSON) Toxic Range: ?>20 ug/mL 15-20 ug/mL is recommended for severe infection or when Vancomycin ELISE is greater than or equal to 2. Lab Interpretation (test code = 08261-1) [facility] - Please draw trough BEFORE the 4th dose scheduled at 1200, but no more than 60 mins before the dose is due.2021-07-06 17:34:01* Test Item Value Reference Range Interpretation Comme nts VANCO TROUGH (test code = 1834228856) 13.4 ug/mL 10.0-20.0 BRYSON (test code = BRYSON) Toxic Range: ?>20 ug/mL 15-20 ug/mL is recommended for severe infection or when Vancomycin ELISE is greater than or equal to 2. Lab Interpretation (test code = 01062-2) [facility] - Please draw trough BEFORE the 4th dose scheduled at 1200, but no more than 60 mins before the dose is due.2021-07-06 17:34:01* Test Item Value Reference Range Interpretation Comme nts VANCO TROUGH (test code = 3903252791) 13.4 ug/mL 10.0-20.0 BRYSON (test code = BRYSON) Toxic Range: ?>20 ug/mL 15-20 ug/mL is recommended for severe infection or when Vancomycin ELISE is greater than or equal to 2. Lab Interpretation (test code = 15950-5) Normal [facility] GLUCOSE (AUTOMATED)2021-07-06 16:47:55* Test Item Value Reference Range Interpretation Comme nts POCT GLU (test code = 0334360559) 321 mg/dL 70-110 H Lab Interpretation (test cod e = 92102-8) Abnormal [facility] GLUCOSE (AUTOMATED)2021-07-06 16:47:55* Test Item Value Reference Range Interpretation Comme nts POCT GLU (test code = 1202354282) 321 mg/dL 70-110 H Lab Interpretation (test cod e = 16900-6) Abnormal [facility] GLUCOSE (AUTOMATED)2021-07-06 16:47:55* Test Item Value Reference Range Interpretation Comme nts POCT GLU (test code = 9055579071) 321 mg/dL 70-110 H Lab Interpretation (test cod e = 52591-2) Abnormal [facility] GLUCOSE (AUTOMATED)2021-07-06 12:56:24* Test Item Value Reference Range Interpretation Comme nts POCT GLU (test code = 2526672902) 351 mg/dL 70-110 H Lab Interpretation (test cod e = 85010-2) Abnormal [facility] GLUCOSE (AUTOMATED)2021-07-06 12:56:24* Test Item Value Reference Range Interpretation Comme nts POCT GLU (test code = 9268710177) 351 mg/dL 70-110 H Lab Interpretation (test cod e = 45249-5) Abnormal [facility] GLUCOSE (AUTOMATED)2021-07-06 12:56:24* Test Item Value Reference Range Interpretation Comme nts POCT GLU (test code = 5550936549) 351 mg/dL 70-110 H Lab Interpretation (test cod e = 71892-5) Abnormal [facility]. METABOLIC PANEL (60669)2021-07-06 12:27:31* Test Item Value Reference Range Interpretation Comme nts NA (test code = 4016133947) 136 mmol/L 135-145 K (test code = 9341713544) 4.9 mmol/L 3.5-5.0 CL (test code = 0439818169) 106 mmol/L 98-108 CO2 TOTAL (test code = 4610252981) 18 mmol/L 23-31 L AGAP (test code = 1181231806) 2-16 BUN (test code = 9481661235) 19 mg/dL 7-23 GLUCOSE (test code = 4608809721) 346 mg/dL 70-110 H CREATININE (test code = 3574246044) 0.91 mg/dL 0.60-1.25 TOTAL BILI (test code = 2210595753) 0.4 mg/dL 0.1-1.1 CALCIUM (test code = 9721748478) 8.5 mg/dL 8.6-10.6 L T PROTEIN (test code = 2107549916) 5.9 g/dL 6.3-8.2 L ALBUMIN (test code = 6237142516) 2.9 g/dL 3.5-5.0 L ALK PHOS (test code = 5130564701) 105 U/L 34-122 ALTv (test code = 1742-6) 19 U/L 5-50 AST(SGOT) (test code = 2627796560) 24 U/L 13-40 eGFR (test code = 8162366012) mL/min/1.73m2 BRYSON (test code = BRYSON) Association of [...] or abnormalities in imaging tests). Lab Interpretation (test code = 01960-7) Abnormal [facility]. METABOLIC PANEL (09909)2021-07-06 12:27:31* Test Item Value Reference Range Interpretation Comme nts NA (test code = 7408038847) 136 mmol/L 135-145 K (test code = 2466993363) 4.9 mmol/L 3.5-5.0 CL (test code = 4621978497) 106 mmol/L 98-108 CO2 TOTAL (test code = 8288651943) 18 mmol/L 23-31 L AGAP (test code = 3591467042) 2-16 BUN (test code = 4692240906) 19 mg/dL 7-23 GLUCOSE (test code = 9651620956) 346 mg/dL 70-110 H CREATININE (test code = 4881940910) 0.91 mg/dL 0.60-1.25 TOTAL BILI (test code = 5315313995) 0.4 mg/dL 0.1-1.1 CALCIUM (test code = 2573235577) 8.5 mg/dL 8.6-10.6 L T PROTEIN (test code = 0688340023) 5.9 g/dL 6.3-8.2 L ALBUMIN (test code = 4904391142) 2.9 g/dL 3.5-5.0 L ALK PHOS (test code = 7526567256) 105 U/L 34-122 ALTv (test code = 1742-6) 19 U/L 5-50 AST(SGOT) (test code = 7005789761) 24 U/L 13-40 eGFR (test code = 0413155051) mL/min/1.73m2 BRYSON (test code = BRYSON) Association of [...] or abnormalities in imaging tests). Lab Interpretation (test code = 50143-7) Abnormal [facility]. METABOLIC PANEL (01310)2021-07-06 12:27:31* Test Item Value Reference Range Interpretation Comme nts NA (test code = 5170452283) 136 mmol/L 135-145 K (test code = 6446069016) 4.9 mmol/L 3.5-5.0 CL (test code = 1347875281) 106 mmol/L 98-108 CO2 TOTAL (test code = 6845726521) 18 mmol/L 23-31 L AGAP (test code = 3978502727) 2-16 BUN (test code = 2733779037) 19 mg/dL 7-23 GLUCOSE (test code = 8244302313) 346 mg/dL 70-110 H CREATININE (test code = 1055385396) 0.91 mg/dL 0.60-1.25 TOTAL BILI (test code = 8044279862) 0.4 mg/dL 0.1-1.1 CALCIUM (test code = 1652338295) 8.5 mg/dL 8.6-10.6 L T PROTEIN (test code = 2358838274) 5.9 g/dL 6.3-8.2 L ALBUMIN (test code = 0675299597) 2.9 g/dL 3.5-5.0 L ALK PHOS (test code = 4313814981) 105 U/L 34-122 ALTv (test code = 1742-6) 19 U/L 5-50 AST(SGOT) (test code = 2115764844) 24 U/L 13-40 eGFR (test code = 6609083925) mL/min/1.73m2 BRYSON (test code = BRYSON) Association of [...] or abnormalities in imaging tests). Lab Interpretation (test code = 34463-9) Abnormal [facility] GLUCOSE (AUTOMATED)2021-07-05 22:49:47* Test Item Value Reference Range Interpretation Comme nts POCT GLU (test code = 3000389275) 175 mg/dL 70-110 H Lab Interpretation (test cod e = 36473-8) Abnormal [facility] GLUCOSE (AUTOMATED)2021-07-05 22:49:47* Test Item Value Reference Range Interpretation Comme nts POCT GLU (test code = 6568053548) 175 mg/dL 70-110 H Lab Interpretation (test cod e = 92377-4) Abnormal [facility] GLUCOSE (AUTOMATED)2021-07-05 22:49:47* Test Item Value Reference Range Interpretation Comme nts POCT GLU (test code = 0647112459) 175 mg/dL 70-110 H Lab Interpretation (test cod e = 34058-5) Abnormal [facility] GLUCOSE (AUTOMATED)2021-07-05 22:49:05* Test Item Value Reference Range Interpretation Comme nts POCT GLU (test code = 1372981436) 170 mg/dL 70-110 H Lab Interpretation (test cod e = 63366-7) Abnormal [facility] GLUCOSE (AUTOMATED)2021-07-05 22:49:05* Test Item Value Reference Range Interpretation Comme nts POCT GLU (test code = 1003504571) 185 mg/dL 70-110 H Lab Interpretation (test cod e = 65592-4) Abnormal [facility] GLUCOSE (AUTOMATED)2021-07-05 22:49:05* Test Item Value Reference Range Interpretation Comme nts POCT GLU (test code = 4856786500) 170 mg/dL 70-110 H Lab Interpretation (test cod e = 90722-8) Abnormal [facility] GLUCOSE (AUTOMATED)2021-07-05 22:49:05* Test Item Value Reference Range Interpretation Comme nts POCT GLU (test code = 1455360824) 185 mg/dL 70-110 H Lab Interpretation (test cod e = 12877-1) Abnormal [facility] GLUCOSE (AUTOMATED)2021-07-05 22:49:05* Test Item Value Reference Range Interpretation Comme nts POCT GLU (test code = 8626724324) 170 mg/dL 70-110 H Lab Interpretation (test cod e = 92236-9) Abnormal [facility] GLUCOSE (AUTOMATED)2021-07-05 22:49:05* Test Item Value Reference Range Interpretation Comme nts POCT GLU (test code = 9240837674) 185 mg/dL 70-110 H Lab Interpretation (test cod e = 51619-3) Abnormal [facility] GLUCOSE (AUTOMATED)2021-07-05 11:56:21* Test Item Value Reference Range Interpretation Comme nts POCT GLU (test code = 7342397022) 167 mg/dL 70-110 H Lab Interpretation (test cod e = 89169-0) Abnormal [facility] GLUCOSE (AUTOMATED)2021-07-05 11:56:21* Test Item Value Reference Range Interpretation Comme nts POCT GLU (test code = 4350270261) 167 mg/dL 70-110 H Lab Interpretation (test cod e = 47136-3) Abnormal [facility] GLUCOSE (AUTOMATED)2021-07-05 11:56:21* Test Item Value Reference Range Interpretation Comme nts POCT GLU (test code = 5940031208) 167 mg/dL 70-110 H Lab Interpretation (test cod e = 39916-4) Abnormal [facility] GLUCOSE (AUTOMATED)2021-07-05 11:56:03* Test Item Value Reference Range Interpretation Comme nts POCT GLU (test code = 5084279233) 109 mg/dL 70-110 Lab Interpretation (test cod e = 00342-6) Normal [facility] GLUCOSE (AUTOMATED)2021-07-05 11:56:03* Test Item Value Reference Range Interpretation Comme nts POCT GLU (test code = 4386136770) 109 mg/dL 70-110 Lab Interpretation (test cod e = 63267-9) Normal [facility] GLUCOSE (AUTOMATED)2021-07-05 11:56:03* Test Item Value Reference Range Interpretation Comme nts POCT GLU (test code = 3600861778) 109 mg/dL 70-110 Lab Interpretation (test cod e = 35267-2) [facility] [id number] 11:48:19* Test Item Value Reference Range Interpretation Comme nts NT-proBNP (test code = 5437046253) 452 pg/mL See_Comment H [Automated message] The system which generated this result transmitted reference range: <=125. The reference range was not used to interpret this result as normal/abnormal. BRYSON (test code = BRYSON) Biotin has been reported to cause a negative bias, interpret results relative to patient's use of biotin. Lab Interpretation (test code = 90923-7) [facility] [id number] 11:48:19* Test Item Value Reference Range Interpretation Comme nts NT-proBNP (test code = 4084825565) 452 pg/mL See_Comment H [Automated message] The system which generated this result transmitted reference range: <=125. The reference range was not used to interpret this result as normal/abnormal. BRYSON (test code = BRYSON) Biotin has been reported to cause a negative bias, interpret results relative to patient's use of biotin. Lab Interpretation (test code = 97165-0) [facility] [id number] 11:48:19* Test Item Value Reference Range Interpretation Comme nts NT-proBNP (test code = 9851246711) 452 pg/mL See_Comment H [Automated message] The system which generated this result transmitted reference range: <=125. The reference range was not used to interpret this result as normal/abnormal. BRYSON (test code = BRYSON) Biotin has been reported to cause a negative bias, interpret results relative to patient's use of biotin. Lab Interpretation (test code = 24563-7) Abnormal [facility]2021-09-28 11:42:19* Test Item Value Reference Range Interpretation Comme nts MAGNESIUM (test code = 8105977802) 2.1 mg/dL 1.7-2.4 Lab Interpretation (test cod e = 07162-4) Normal [facility]2021-09-28 11:42:19* Test Item Value Reference Range Interpretation Comme nts MAGNESIUM (test code = 1378921999) 2.1 mg/dL 1.7-2.4 Lab Interpretation (test cod e = 06095-8) Normal [facility]2021-09-28 11:42:19* Test Item Value Reference Range Interpretation Comme nts MAGNESIUM (test code = 9334745653) 2.1 mg/dL 1.7-2.4 Lab Interpretation (test cod e = 80616-0) Normal [facility]. METABOLIC PANEL (42172)2021-07-05 11:41:59* Test Item Value Reference Range Interpretation Comme nts NA (test code = 0979760291) 136 mmol/L 135-145 K (test code = 9807479722) 3.8 mmol/L 3.5-5.0 CL (test code = 1568498915) 107 mmol/L 98-108 CO2 TOTAL (test code = 1878546996) 19 mmol/L 23-31 L AGAP (test code = 7387034371) 2-16 BUN (test code = 8022003199) 14 mg/dL 7-23 GLUCOSE (test code = 3708156408) 152 mg/dL 70-110 H CREATININE (test code = 2484906686) 0.82 mg/dL 0.60-1.25 TOTAL BILI (test code = 8864348204) 0.4 mg/dL 0.1-1.1 CALCIUM (test code = 0621230336) 8.2 mg/dL 8.6-10.6 L T PROTEIN (test code = 8452420116) 5.9 g/dL 6.3-8.2 L ALBUMIN (test code = 0370540746) 2.9 g/dL 3.5-5.0 L ALK PHOS (test code = 1589869051) 97 U/L 34-122 ALTv (test code = 1742-6) 17 U/L 5-50 AST(SGOT) (test code = 4922667679) 25 U/L 13-40 eGFR (test code = 6728638671) mL/min/1.73m2 BRYSON (test code = BRYSON) Association of [...] or abnormalities in imaging tests). Lab Interpretation (test code = 66022-0) Abnormal [facility]. METABOLIC PANEL (70837)2021-07-05 11:41:59* Test Item Value Reference Range Interpretation Comme nts NA (test code = 0647767860) 136 mmol/L 135-145 K (test code = 9702287936) 3.8 mmol/L 3.5-5.0 CL (test code = 1389356469) 107 mmol/L 98-108 CO2 TOTAL (test code = 6624077441) 19 mmol/L 23-31 L AGAP (test code = 2535917556) 2-16 BUN (test code = 9560102382) 14 mg/dL 7-23 GLUCOSE (test code = 4094046997) 152 mg/dL 70-110 H CREATININE (test code = 7494030183) 0.82 mg/dL 0.60-1.25 TOTAL BILI (test code = 6439470724) 0.4 mg/dL 0.1-1.1 CALCIUM (test code = 5852282468) 8.2 mg/dL 8.6-10.6 L T PROTEIN (test code = 3553154367) 5.9 g/dL 6.3-8.2 L ALBUMIN (test code = 8421724930) 2.9 g/dL 3.5-5.0 L ALK PHOS (test code = 7827117637) 97 U/L 34-122 ALTv (test code = 1742-6) 17 U/L 5-50 AST(SGOT) (test code = 3080207592) 25 U/L 13-40 eGFR (test code = 7185509217) mL/min/1.73m2 BRYSON (test code = BRYSON) Association of [...] or abnormalities in imaging tests). Lab Interpretation (test code = 19824-1) Abnormal [facility]. METABOLIC PANEL (32050)2021-07-05 11:41:59* Test Item Value Reference Range Interpretation Comme nts NA (test code = 0185330374) 136 mmol/L 135-145 K (test code = 6343621826) 3.8 mmol/L 3.5-5.0 CL (test code = 7422931099) 107 mmol/L 98-108 CO2 TOTAL (test code = 4825219970) 19 mmol/L 23-31 L AGAP (test code = 3464033449) 2-16 BUN (test code = 7911012123) 14 mg/dL 7-23 GLUCOSE (test code = 4350644181) 152 mg/dL 70-110 H CREATININE (test code = 3059940559) 0.82 mg/dL 0.60-1.25 TOTAL BILI (test code = 2964249568) 0.4 mg/dL 0.1-1.1 CALCIUM (test code = 8898071131) 8.2 mg/dL 8.6-10.6 L T PROTEIN (test code = 2780145698) 5.9 g/dL 6.3-8.2 L ALBUMIN (test code = 8731448762) 2.9 g/dL 3.5-5.0 L ALK PHOS (test code = 6535091072) 97 U/L 34-122 ALTv (test code = 1742-6) 17 U/L 5-50 AST(SGOT) (test code = 4822725689) 25 U/L 13-40 eGFR (test code = 8766621942) mL/min/1.73m2 BRYSON (test code = BRYSON) Association of [...] or abnormalities in imaging tests). Lab Interpretation (test code = 46690-9) Abnormal [facility] WITH [id number] 11:13:33* Test Item Value Reference Range Interpretation Comme nts WBC (test code = 6690-2) See_Comment H [Automated [employer]] The system which generated this result transmitted reference range: 4.20 - 10.70 10*3/?L. The reference range was not used to interpret this result as normal/abnormal. RBC (test code = 789-8) See_Comment L [Automated [employer]] The system which generated this result transmitted reference range: 4.26 - 5.52 10*6/?L. The reference range was not used to interpret this result as normal/abnormal. HGB (test code = 718-7) 10.1 g/dL 12.2-16.4 L HCT (test code = 4544-3) 29.5 % 38.4-49.3 L MCV (test code = 787-2) 93.7 fL 81.7-95.6 MCH (test code = 785-6) 32.1 pg 26.1-32.7 MCHC (test code = 786-4) 34.2 g/dL 31.2-35.0 RDW-SD (test code = 33501-7) 42.6 fL 38.5-51.6 RDW-CV (test code = 788-0) 12.3 % 12.1-15.4 PLT (test code = 777-3) See_Comment [Automated messa ge] The system which generated this result transmitted reference range: 150 - 328 10*3/?L. The reference range was not used to interpret this result as normal/abnormal. MPV (test code = 32990-1) 12.5 fL 9.8-13.0 NRBC/100 WBC (test code = 2616287669) See_Comment [Automated [employer]] The system which generated this result transmitted reference range: 0.0 - 10.0 /100 WBCs. The reference range was not used to interpret this result as normal/abnormal. NRBC x10^3 (test code = 9579212567) <0.01 See_Comment [Automated [employer] ge] The system which generated this result transmitted reference range: 10*3/?L. The reference range was not used to interpret this result as normal/abnormal. GRAN MAT (NEUT) % (test code = 770-8) 72.3 % IMM GRAN % (test code = 7706879535) 0.50 % LYMPH % (test code = 736-9) 14.0 % MONO % (test code = 5905-5) 11.4 % EOS % (test code = 713-8) 1.4 % BASO % (test code = 706-2) 0.4 % GRAN MAT x10^3(ANC) (test code = 3856353001) 7.97 10*3/uL 1.99-6.95 H IMM GRAN x10^3 (test code = 7214420305) 0.05 10*3/uL 0.00-0.06 LYMPH x10^3 (test code = 731-0) 1.54 10*3/uL 1.09-3.23 MONO x10^3 (test code = 742-7) 1.26 10*3/uL 0.36-1.02 H EOS x10^3 (test code = 711-2) 0.15 10*3/uL 0.06-0.53 BASO x10^3 (test code = 704-7) 0.04 10*3/uL 0.01-0.09 Lab Interpretation (test code = 27170-3) Abnormal [facility] WITH [id number] 11:13:33* Test Item Value Reference Range Interpretation Comme nts WBC (test code = 6690-2) See_Comment H [Automated messa ge] The system which generated this result transmitted reference range: 4.20 - 10.70 10*3/?L. The reference range was not used to interpret this result as normal/abnormal. RBC (test code = 789-8) See_Comment L [Automated messa ge] The system which generated this result transmitted reference range: 4.26 - 5.52 10*6/?L. The reference range was not used to interpret this result as normal/abnormal. HGB (test code = 718-7) 10.1 g/dL 12.2-16.4 L HCT (test code = 4544-3) 29.5 % 38.4-49.3 L MCV (test code = 787-2) 93.7 fL 81.7-95.6 MCH (test code = 785-6) 32.1 pg 26.1-32.7 MCHC (test code = 786-4) 34.2 g/dL 31.2-35.0 RDW-SD (test code = 62985-2) 42.6 fL 38.5-51.6 RDW-CV (test code = 788-0) 12.3 % 12.1-15.4 PLT (test code = 777-3) See_Comment [Automated messa ge] The system which generated this result transmitted reference range: 150 - 328 10*3/?L. The reference range was not used to interpret this result as normal/abnormal. MPV (test code = 62889-8) 12.5 fL 9.8-13.0 NRBC/100 WBC (test code = 3747333136) See_Comment [Automated me ssage] The system which generated this result transmitted reference range: 0.0 - 10.0 /100 WBCs. The reference range was not used to interpret this result as normal/abnormal. NRBC x10^3 (test code = 1318348337) <0.01 See_Comment [Automated messa ge] The system which generated this result transmitted reference range: 10*3/?L. The reference range was not used to interpret this result as normal/abnormal. GRAN MAT (NEUT) % (test code = 770-8) 72.3 % IMM GRAN % (test code = 7550990976) 0.50 % LYMPH % (test code = 736-9) 14.0 % MONO % (test code = 5905-5) 11.4 % EOS % (test code = 713-8) 1.4 % BASO % (test code = 706-2) 0.4 % GRAN MAT x10^3(ANC) (test code = 7722780068) 7.97 10*3/uL 1.99-6.95 H IMM GRAN x10^3 (test code = 9259749510) 0.05 10*3/uL 0.00-0.06 LYMPH x10^3 (test code = 731-0) 1.54 10*3/uL 1.09-3.23 MONO x10^3 (test code = 742-7) 1.26 10*3/uL 0.36-1.02 H EOS x10^3 (test code = 711-2) 0.15 10*3/uL 0.06-0.53 BASO x10^3 (test code = 704-7) 0.04 10*3/uL 0.01-0.09 Lab Interpretation (test code = 77209-6) Abnormal [facility] WITH [id number] 11:13:33* Test Item Value Reference Range Interpretation Comme nts WBC (test code = 6690-2) See_Comment H [Automated messa ge] The system which generated this result transmitted reference range: 4.20 - 10.70 10*3/?L. The reference range was not used to interpret this result as normal/abnormal. RBC (test code = 789-8) See_Comment L [Automated messa ge] The system which generated this result transmitted reference range: 4.26 - 5.52 10*6/?L. The reference range was not used to interpret this result as normal/abnormal. HGB (test code = 718-7) 10.1 g/dL 12.2-16.4 L HCT (test code = 4544-3) 29.5 % 38.4-49.3 L MCV (test code = 787-2) 93.7 fL 81.7-95.6 MCH (test code = 785-6) 32.1 pg 26.1-32.7 MCHC (test code = 786-4) 34.2 g/dL 31.2-35.0 RDW-SD (test code = 54043-6) 42.6 fL 38.5-51.6 RDW-CV (test code = 788-0) 12.3 % 12.1-15.4 PLT (test code = 777-3) See_Comment [Automated [employer]] The system which generated this result transmitted reference range: 150 - 328 10*3/?L. The reference range was not used to interpret this result as normal/abnormal. MPV (test code = 69920-3) 12.5 fL 9.8-13.0 NRBC/100 WBC (test code = 5989748432) See_Comment [Automated [employer] ssage] The system which generated this result transmitted reference range: 0.0 - 10.0 /100 WBCs. The reference range was not used to interpret this result as normal/abnormal. NRBC x10^3 (test code = 1157612006) <0.01 See_Comment [Automated [employer] ge] The system which generated this result transmitted reference range: 10*3/?L. The reference range was not used to interpret this result as normal/abnormal. GRAN MAT (NEUT) % (test code = 770-8) 72.3 % IMM GRAN % (test code = 7635939304) 0.50 % LYMPH % (test code = 736-9) 14.0 % MONO % (test code = 5905-5) 11.4 % EOS % (test code = 713-8) 1.4 % BASO % (test code = 706-2) 0.4 % GRAN MAT x10^3(ANC) (test code = 2214466258) 7.97 10*3/uL 1.99-6.95 H IMM GRAN x10^3 (test code = 5191470344) 0.05 10*3/uL 0.00-0.06 LYMPH x10^3 (test code = 731-0) 1.54 10*3/uL 1.09-3.23 MONO x10^3 (test code = 742-7) 1.26 10*3/uL 0.36-1.02 H EOS x10^3 (test code = 711-2) 0.15 10*3/uL 0.06-0.53 BASO x10^3 (test code = 704-7) 0.04 10*3/uL 0.01-0.09 Lab Interpretation (test code = 13358-3) Abnormal [facility] GLUCOSE (AUTOMATED)2021-07-04 18:13:05* Test Item Value Reference Range Interpretation Comme nts POCT GLU (test code = 9967515711) 237 mg/dL 70-110 H Lab Interpretation (test cod e = 22344-5) Abnormal [facility] GLUCOSE (AUTOMATED)2021-07-04 18:13:05* Test Item Value Reference Range Interpretation Comme nts POCT GLU (test code = 6471515637) 237 mg/dL 70-110 H Lab Interpretation (test cod e = 62804-9) Abnormal [facility] GLUCOSE (AUTOMATED)2021-07-04 18:13:05* Test Item Value Reference Range Interpretation Comme nts POCT GLU (test code = 7382604502) 237 mg/dL 70-110 H Lab Interpretation (test cod e = 86506-7) [facility] Draw no more than 60 minutes before the 1200 dose.2021-07-04 17:26:07* Test Item Value Reference Range Interpretation Comme nts VANCO TROUGH (test code = [id number]) 9.1 ug/mL 10.0-20.0 L BRYSON (test code = BRYSON) Toxic Range: ?>20 ug/mL 15-20 ug/mL is recommended for severe infection or when Vancomycin ELISE is greater than or equal to 2. Lab Interpretation (test code = 57434-0) [facility] [place] [facility] - Draw no more than 60 minutes before the 1200 dose.2021-07-04 17:26:07* Test Item Value Reference Range Interpretation Comme nts VANCO TROUGH (test code = [id number]) 9.1 ug/mL 10.0-20.0 L BRYSON (test code = BRYSON) Toxic Range: ?>20 ug/mL 15-20 ug/mL is recommended for severe infection or when Vancomycin ELISE is greater than or equal to 2. Lab Interpretation (test code = 08254-5) [facility] [place] - Draw no more than 60 minutes before the 1200 dose.2021-07-04 17:26:07* Test Item Value Reference Range Interpretation Comme nts VANCO TROUGH (test code = [id number]) 9.1 ug/mL 10.0-20.0 L BRYSON (test code = BRYSON) Toxic Range: ?>20 ug/mL 15-20 ug/mL is recommended for severe infection or when Vancomycin ELISE is greater than or equal to 2. Lab Interpretation (test code = 80234-0) Abnormal [facility]-REACTIVE [id number] 15:31:30* Test Item Value Reference Range Interpretation Comme nts CRP (test code = 5265578786) 12.0 mg/dL <0.8 H Lab Interpretation (test cod e = 08001-5) Abnormal [facility]-REACTIVE [id number] 15:31:30* Test Item Value Reference Range Interpretation Comme nts CRP (test code = 5433795671) 12.0 mg/dL <0.8 H Lab Interpretation (test cod e = 39147-7) Abnormal [facility]-REACTIVE [id number] 15:31:30* Test Item Value Reference Range Interpretation Comme nts CRP (test code = 2174016723) 12.0 mg/dL <0.8 H Lab Interpretation (test cod e = 72295-0) Abnormal [facility] GLUCOSE (AUTOMATED)2021-07-04 14:30:27* Test Item Value Reference Range Interpretation Comme nts POCT GLU (test code = 3349381445) 190 mg/dL 70-110 H Lab Interpretation (test cod e = 12364-3) Abnormal [facility] GLUCOSE (AUTOMATED)2021-07-04 14:30:27* Test Item Value Reference Range Interpretation Comme nts POCT GLU (test code = 1534761882) 190 mg/dL 70-110 H Lab Interpretation (test cod e = 28383-7) Abnormal [facility] GLUCOSE (AUTOMATED)2021-07-04 14:30:27* Test Item Value Reference Range Interpretation Comme nts POCT GLU (test code = 3721034751) 190 mg/dL 70-110 H Lab Interpretation (test cod e = 81158-3) [facility], [id number] 14:26:51* Test Item Value Reference Range Interpretation Comme nts VIT D 25OH (test code = 77058-1) 13 ng/mL 25-80 L BRYSON (test code = BRYSON) Deficiency: <20 ng/mLInsufficiency: 20-24 ng/mLOptimal: 25-80 ng/mL Lab Interpretation (test code = 22450-0) [facility], [id number] 14:26:51* Test Item Value Reference Range Interpretation Comme nts VIT D 25OH (test code = 36718-8) 13 ng/mL 25-80 L BRYSON (test code = BRYSON) Deficiency: <20 ng/mLInsufficiency: 20-24 ng/mLOptimal: 25-80 ng/mL Lab Interpretation (test code = 21677-6) [facility], [id number] 14:26:51* Test Item Value Reference Range Interpretation Comme nts VIT D 25OH (test code = 75465-3) 13 ng/mL 25-80 L BRYSON (test code = BRYSON) Deficiency: <20 ng/mLInsufficiency: 20-24 ng/mLOptimal: 25-80 ng/mL Lab Interpretation (test code = 29001-1) [facility] [id number] 13:47:46* Test Item Value Reference Range Interpretation Comme nts WBC (test code = 6690-2) See_Comment H [Automated messa ge] The system which generated this result transmitted reference range: 4.20 - 10.70 10*3/?L. The reference range was not used to interpret this result as normal/abnormal. RBC (test code = 789-8) See_Comment L [Automated [employer] ge] The system which generated this result transmitted reference range: 4.26 - 5.52 10*6/?L. The reference range was not used to interpret this result as normal/abnormal. HGB (test code = 718-7) 10.3 g/dL 12.2-16.4 L HCT (test code = 4544-3) 30.3 % 38.4-49.3 L MCV (test code = 787-2) 92.9 fL 81.7-95.6 MCH (test code = 785-6) 31.6 pg 26.1-32.7 MCHC (test code = 786-4) 34.0 g/dL 31.2-35.0 RDW-SD (test code = 95606-2) 42.5 fL 38.5-51.6 RDW-CV (test code = 788-0) 12.4 % 12.1-15.4 PLT (test code = 777-3) See_Comment [Automated [employer] ge] The system which generated this result transmitted reference range: 150 - 328 10*3/?L. The reference range was not used to interpret this result as normal/abnormal. MPV (test code = 47582-8) 13.5 fL 9.8-13.0 H IPF % (test code = 5908715982) 9.6 % 1.2-10.7 Platelet count measured by fluorescence method. NRBC/100 WBC (test code = 1817740574) See_Comment [Automated [employer] ssage] The system which generated this result transmitted reference range: 0.0 - 10.0 /100 WBCs. The reference range was not used to interpret this result as normal/abnormal. NRBC x10^3 (test code = 3919636548) <0.01 See_Comment [Automated [employer] ge] The system which generated this result transmitted reference range: 10*3/?L. The reference range was not used to interpret this result as normal/abnormal. GRAN MAT (NEUT) % (test code = 770-8) 71.3 % IMM GRAN % (test code = 0933507901) 0.60 % LYMPH % (test code = 736-9) 15.8 % MONO % (test code = 5905-5) 11.2 % EOS % (test code = 713-8) 0.8 % BASO % (test code = 706-2) 0.3 % GRAN MAT x10^3(ANC) (test code = 6024838956) 8.92 10*3/uL 1.99-6.95 H IMM GRAN x10^3 (test code = 6504492557) 0.07 10*3/uL 0.00-0.06 H LYMPH x10^3 (test code = 731-0) 1.97 10*3/uL 1.09-3.23 MONO x10^3 (test code = 742-7) 1.40 10*3/uL 0.36-1.02 H EOS x10^3 (test code = 711-2) 0.10 10*3/uL 0.06-0.53 BASO x10^3 (test code = 704-7) 0.04 10*3/uL 0.01-0.09 Lab Interpretation (test code = 23019-9) Abnormal [facility] WITH [id number] 13:47:46* Test Item Value Reference Range Interpretation Comme nts WBC (test code = 6690-2) See_Comment H [Automated messa ge] The system which generated this result transmitted reference range: 4.20 - 10.70 10*3/?L. The reference range was not used to interpret this result as normal/abnormal. RBC (test code = 789-8) See_Comment L [Automated messa ge] The system which generated this result transmitted reference range: 4.26 - 5.52 10*6/?L. The reference range was not used to interpret this result as normal/abnormal. HGB (test code = 718-7) 10.3 g/dL 12.2-16.4 L HCT (test code = 4544-3) 30.3 % 38.4-49.3 L MCV (test code = 787-2) 92.9 fL 81.7-95.6 MCH (test code = 785-6) 31.6 pg 26.1-32.7 MCHC (test code = 786-4) 34.0 g/dL 31.2-35.0 RDW-SD (test code = 74216-8) 42.5 fL 38.5-51.6 RDW-CV (test code = 788-0) 12.4 % 12.1-15.4 PLT (test code = 777-3) See_Comment [Automated [employer] ge] The system which generated this result transmitted reference range: 150 - 328 10*3/?L. The reference range was not used to interpret this result as normal/abnormal. MPV (test code = 78656-6) 13.5 fL 9.8-13.0 H IPF % (test code = 7396561226) 9.6 % 1.2-10.7 Platelet count measured by fluorescence method. NRBC/100 WBC (test code = 4453493708) See_Comment [Automated [employer] ssage] The system which generated this result transmitted reference range: 0.0 - 10.0 /100 WBCs. The reference range was not used to interpret this result as normal/abnormal. NRBC x10^3 (test code = 0902011741) <0.01 See_Comment [Automated [employer] ge] The system which generated this result transmitted reference range: 10*3/?L. The reference range was not used to interpret this result as normal/abnormal. GRAN MAT (NEUT) % (test code = 770-8) 71.3 % IMM GRAN % (test code = 1358934092) 0.60 % LYMPH % (test code = 736-9) 15.8 % MONO % (test code = 5905-5) 11.2 % EOS % (test code = 713-8) 0.8 % BASO % (test code = 706-2) 0.3 % GRAN MAT x10^3(ANC) (test code = 8157824998) 8.92 10*3/uL 1.99-6.95 H IMM GRAN x10^3 (test code = 8916085840) 0.07 10*3/uL 0.00-0.06 H LYMPH x10^3 (test code = 731-0) 1.97 10*3/uL 1.09-3.23 MONO x10^3 (test code = 742-7) 1.40 10*3/uL 0.36-1.02 H EOS x10^3 (test code = 711-2) 0.10 10*3/uL 0.06-0.53 BASO x10^3 (test code = 704-7) 0.04 10*3/uL 0.01-0.09 Lab Interpretation (test code = 01395-3) Abnormal [facility] WITH [id number] 13:47:46* Test Item Value Reference Range Interpretation Comme nts WBC (test code = 6690-2) See_Comment H [Automated messa ge] The system which generated this result transmitted reference range: 4.20 - 10.70 10*3/?L. The reference range was not used to interpret this result as normal/abnormal. RBC (test code = 789-8) See_Comment L [Automated messa ge] The system which generated this result transmitted reference range: 4.26 - 5.52 10*6/?L. The reference range was not used to interpret this result as normal/abnormal. HGB (test code = 718-7) 10.3 g/dL 12.2-16.4 L HCT (test code = 4544-3) 30.3 % 38.4-49.3 L MCV (test code = 787-2) 92.9 fL 81.7-95.6 MCH (test code = 785-6) 31.6 pg 26.1-32.7 MCHC (test code = 786-4) 34.0 g/dL 31.2-35.0 RDW-SD (test code = 66957-7) 42.5 fL 38.5-51.6 RDW-CV (test code = 788-0) 12.4 % 12.1-15.4 PLT (test code = 777-3) See_Comment [Automated messa ge] The system which generated this result transmitted reference range: 150 - 328 10*3/?L. The reference range was not used to interpret this result as normal/abnormal. MPV (test code = 85138-4) 13.5 fL 9.8-13.0 H IPF % (test code = 3261988640) 9.6 % 1.2-10.7 Platelet count measured by fluorescence method. NRBC/100 WBC (test code = 1348734643) See_Comment [Automated [employer] ssage] The system which generated this result transmitted reference range: 0.0 - 10.0 /100 WBCs. The reference range was not used to interpret this result as normal/abnormal. NRBC x10^3 (test code = 5144247516) <0.01 See_Comment [Automated messa ge] The system which generated this result transmitted reference range: 10*3/?L. The reference range was not used to interpret this result as normal/abnormal. GRAN MAT (NEUT) % (test code = 770-8) 71.3 % IMM GRAN % (test code = 3729198412) 0.60 % LYMPH % (test code = 736-9) 15.8 % MONO % (test code = 5905-5) 11.2 % EOS % (test code = 713-8) 0.8 % BASO % (test code = 706-2) 0.3 % GRAN MAT x10^3(ANC) (test code = 3855199151) 8.92 10*3/uL 1.99-6.95 H IMM GRAN x10^3 (test code = 1596397992) 0.07 10*3/uL 0.00-0.06 H LYMPH x10^3 (test code = 731-0) 1.97 10*3/uL 1.09-3.23 MONO x10^3 (test code = 742-7) 1.40 10*3/uL 0.36-1.02 H EOS x10^3 (test code = 711-2) 0.10 10*3/uL 0.06-0.53 BASO x10^3 (test code = 704-7) 0.04 10*3/uL 0.01-0.09 Lab Interpretation (test code = 65643-0) [facility] [id number] 13:33:20* Test Item Value Reference Range Interpretation Comme nts NT-proBNP (test code = 3535768392) 291 pg/mL See_Comment H [Automated message] The system which generated this result transmitted reference range: <=125. The reference range was not used to interpret this result as normal/abnormal. BRYSON (test code = BRYSON) Biotin has been reported to cause a negative bias, interpret results relative to patient's use of biotin. Lab Interpretation (test code = 34562-3) [facility] [id number] 13:33:20* Test Item Value Reference Range Interpretation Comme nts NT-proBNP (test code = 7840126180) 291 pg/mL See_Comment H [Automated message] The system which generated this result transmitted reference range: <=125. The reference range was not used to interpret this result as normal/abnormal. BRYSON (test code = BRYSON) Biotin has been reported to cause a negative bias, interpret results relative to patient's use of biotin. Lab Interpretation (test code = 38201-3) [facility] [id number] 13:33:20* Test Item Value Reference Range Interpretation Comme nts NT-proBNP (test code = 6562590934) 291 pg/mL See_Comment H [Automated message] The system which generated this result transmitted reference range: <=125. The reference range was not used to interpret this result as normal/abnormal. BRYSON (test code = BRYSON) Biotin has been reported to cause a negative bias, interpret results relative to patient's use of biotin. Lab Interpretation (test code = 44355-8) Abnormal [facility]2021-09-27 13:18:00* Test Item Value Reference Range Interpretation Comme nts MAGNESIUM (test code = 9052992465) 2.1 mg/dL 1.7-2.4 Lab Interpretation (test cod e = 58904-1) Normal [facility]2021-09-27 13:18:00* Test Item Value Reference Range Interpretation Comme nts MAGNESIUM (test code = 1462433285) 2.1 mg/dL 1.7-2.4 Lab Interpretation (test cod e = 21287-4) Normal [facility]2021-09-27 13:18:00* Test Item Value Reference Range Interpretation Comme nts MAGNESIUM (test code = 4529673978) 2.1 mg/dL 1.7-2.4 Lab Interpretation (test cod e = 65438-9) Normal [facility]. METABOLIC PANEL (57290)2021-07-04 13:17:39* Test Item Value Reference Range Interpretation Comme nts NA (test code = 5403436922) 135 mmol/L 135-145 K (test code = 8263616632) 3.8 mmol/L 3.5-5.0 CL (test code = 5485116439) 106 mmol/L 98-108 CO2 TOTAL (test code = 5244564343) 22 mmol/L 23-31 L AGAP (test code = 1570744361) 2-16 BUN (test code = 6382293080) 14 mg/dL 7-23 GLUCOSE (test code = 7790251295) 151 mg/dL 70-110 H CREATININE (test code = 3660301962) 0.78 mg/dL 0.60-1.25 TOTAL BILI (test code = 8499509853) 0.5 mg/dL 0.1-1.1 CALCIUM (test code = 4584683058) 8.1 mg/dL 8.6-10.6 L T PROTEIN (test code = 6421687633) 5.6 g/dL 6.3-8.2 L ALBUMIN (test code = 8313662429) 2.7 g/dL 3.5-5.0 L ALK PHOS (test code = 6304605159) 75 U/L 34-122 ALTv (test code = 1742-6) 13 U/L 5-50 AST(SGOT) (test code = 0592352391) 20 U/L 13-40 eGFR (test code = 5033173183) mL/min/1.73m2 BRYSON (test code = BRYSON) Association of [...] or abnormalities in imaging tests). Lab Interpretation (test code = 83301-0) Abnormal [facility]. METABOLIC PANEL (85700)2021-07-04 13:17:39* Test Item Value Reference Range Interpretation Comme nts NA (test code = 6530025959) 135 mmol/L 135-145 K (test code = 2831677698) 3.8 mmol/L 3.5-5.0 CL (test code = 3815182773) 106 mmol/L 98-108 CO2 TOTAL (test code = 0551271715) 22 mmol/L 23-31 L AGAP (test code = 1462570077) 2-16 BUN (test code = 2987794051) 14 mg/dL 7-23 GLUCOSE (test code = 2368816038) 151 mg/dL 70-110 H CREATININE (test code = 8681679132) 0.78 mg/dL 0.60-1.25 TOTAL BILI (test code = 9384252440) 0.5 mg/dL 0.1-1.1 CALCIUM (test code = 0360335531) 8.1 mg/dL 8.6-10.6 L T PROTEIN (test code = 3513571551) 5.6 g/dL 6.3-8.2 L ALBUMIN (test code = 3058501931) 2.7 g/dL 3.5-5.0 L ALK PHOS (test code = 3996307624) 75 U/L 34-122 ALTv (test code = 1742-6) 13 U/L 5-50 AST(SGOT) (test code = 7489519187) 20 U/L 13-40 eGFR (test code = 2795660226) mL/min/1.73m2 BRYSON (test code = BRYSON) Association of [...] or abnormalities in imaging tests). Lab Interpretation (test code = 22126-1) Abnormal [facility]. METABOLIC PANEL (24086)2021-07-04 13:17:39* Test Item Value Reference Range Interpretation Comme nts NA (test code = 1079982898) 135 mmol/L 135-145 K (test code = 7085497109) 3.8 mmol/L 3.5-5.0 CL (test code = 9169817361) 106 mmol/L 98-108 CO2 TOTAL (test code = 1721547245) 22 mmol/L 23-31 L AGAP (test code = 4252365514) 2-16 BUN (test code = 9924578149) 14 mg/dL 7-23 GLUCOSE (test code = 9481017013) 151 mg/dL 70-110 H CREATININE (test code = 8346873642) 0.78 mg/dL 0.60-1.25 TOTAL BILI (test code = 0571040378) 0.5 mg/dL 0.1-1.1 CALCIUM (test code = 3793281930) 8.1 mg/dL 8.6-10.6 L T PROTEIN (test code = 6993579635) 5.6 g/dL 6.3-8.2 L ALBUMIN (test code = 8843422708) 2.7 g/dL 3.5-5.0 L ALK PHOS (test code = 6078248716) 75 U/L 34-122 ALTv (test code = 1742-6) 13 U/L 5-50 AST(SGOT) (test code = 9246229902) 20 U/L 13-40 eGFR (test code = 8369613601) mL/min/1.73m2 BRYSON (test code = BRYSON) Association of [...] or abnormalities in imaging tests). Lab Interpretation (test code = 55833-3) [facility] 13:17:19* Test Item Value Reference Range Interpretation Comme nts PHOSPHORUS (test code = 9166851000) 3.4 mg/dL 2.5-5.0 Lab Interpretation (test cod e = 91388-1) [facility] 13:17:19* Test Item Value Reference Range Interpretation Comme nts PHOSPHORUS (test code = 2914888079) 3.4 mg/dL 2.5-5.0 Lab Interpretation (test cod e = 24910-7) [facility]21[facility] 13:17:19* Test Item Value Reference Range Interpretation Comme nts PHOSPHORUS (test code = 1692217549) 3.4 mg/dL 2.5-5.0 Lab Interpretation (test cod e = 86142-3) Normal [facility] GLUCOSE (AUTOMATED)2021-07-04 12:05:44* Test Item Value Reference Range Interpretation Comme nts POCT GLU (test code = 5005181559) 211 mg/dL 70-110 H Lab Interpretation (test cod e = 65875-6) Abnormal [facility] GLUCOSE (AUTOMATED)2021-07-04 12:05:44* Test Item Value Reference Range Interpretation Comme nts POCT GLU (test code = 2771363165) 211 mg/dL 70-110 H Lab Interpretation (test cod e = 89678-2) Abnormal [facility] GLUCOSE (AUTOMATED)2021-07-04 12:05:44* Test Item Value Reference Range Interpretation Comme nts POCT GLU (test code = 5377933520) 211 mg/dL 70-110 H Lab Interpretation (test cod e = 18627-9) Abnormal [facility] GLUCOSE (AUTOMATED)2021-07-04 12:05:22* Test Item Value Reference Range Interpretation Comme nts POCT GLU (test code = 2569178856) 124 mg/dL 70-110 H Lab Interpretation (test cod e = 78419-2) Abnormal [facility] GLUCOSE (AUTOMATED)2021-07-04 12:05:22* Test Item Value Reference Range Interpretation Comme nts POCT GLU (test code = 8127481003) 124 mg/dL 70-110 H Lab Interpretation (test cod e = 85889-0) Abnormal [facility] GLUCOSE (AUTOMATED)2021-07-04 12:05:22* Test Item Value Reference Range Interpretation Comme nts POCT GLU (test code = 4736387572) 124 mg/dL 70-110 H Lab Interpretation (test cod e = 06813-2) Abnormal [facility] GLUCOSE (AUTOMATED)2021-07-04 12:04:47* Test Item Value Reference Range Interpretation Comme nts POCT GLU (test code = 8174347059) 194 mg/dL 70-110 H Lab Interpretation (test cod e = 92207-1) Abnormal [facility] GLUCOSE (AUTOMATED)2021-07-04 12:04:47* Test Item Value Reference Range Interpretation Comme nts POCT GLU (test code = 2479875112) 194 mg/dL 70-110 H Lab Interpretation (test cod e = 02223-3) Abnormal [facility] GLUCOSE (AUTOMATED)2021-07-04 12:04:47* Test Item Value Reference Range Interpretation Comme nts POCT GLU (test code = 5103397091) 194 mg/dL 70-110 H Lab Interpretation (test cod e = 20730-7) Abnormal [facility] GLUCOSE (AUTOMATED)2021-07-04 12:04:19* Test Item Value Reference Range Interpretation Comme nts POCT GLU (test code = 9923477428) 271 mg/dL 70-110 H Lab Interpretation (test cod e = 55091-0) Abnormal [facility] GLUCOSE (AUTOMATED)2021-07-04 12:04:19* Test Item Value Reference Range Interpretation Comme nts POCT GLU (test code = 1153023454) 271 mg/dL 70-110 H Lab Interpretation (test cod e = 47985-8) Abnormal [facility] GLUCOSE (AUTOMATED)2021-07-04 12:04:19* Test Item Value Reference Range Interpretation Comme nts POCT GLU (test code = 7887765861) 271 mg/dL 70-110 H Lab Interpretation (test cod e = 67627-1) [facility] B12, [id number] 20:51:33* Test Item Value Reference Range Interpretation Comme nts VIT B12 (test code = 3711787871) 768 pg/mL 240-930 BRYSON (test code = BRYSON) Biotin has been reported to cause a positive bias, interpret results relative to patient's use of biotin. Lab Interpretation (test code = 20640-5) [facility] B12, [id number] 20:51:33* Test Item Value Reference Range Interpretation Comme nts VIT B12 (test code = 7978585954) 768 pg/mL 240-930 BRYSON (test code = BRYSON) Biotin has been reported to cause a positive bias, interpret results relative to patient's use of biotin. Lab Interpretation (test code = 41034-7) [facility] B12, [id number] 20:51:33* Test Item Value Reference Range Interpretation Comme nts VIT B12 (test code = 0804202206) 768 pg/mL 240-930 BRYSON (test code = BRYSON) Biotin has been reported to cause a positive bias, interpret results relative to patient's use of biotin. Lab Interpretation (test code = 18894-2) [facility]:29* Test Item Value Reference Range Interpretation Comme nts Procalcitonin (test code = 4380375916) 0.09 ng/mL <0.07 H BRYSON (test code = BRYSON) INTERPRETATION OF [...] lung abscess/empyema. For further information please refer to:[email or web address] Lab Interpretation (test code = 61849-0) [facility]2021-[facility]-26 20:34:29* Test Item Value Reference Range Interpretation Comme nts Procalcitonin (test code = 1217016413) 0.09 ng/mL <0.07 H BRYSON (test code = BRYSON) INTERPRETATION OF [...] lung abscess/empyema. For further information please refer to:[email or web address] Lab Interpretation (test code = 39045-4) [facility]2021-[facility]-26 20:34:29* Test Item Value Reference Range Interpretation Comme nts Procalcitonin (test code = 5546781619) 0.09 ng/mL <0.07 H BRYSON (test code = BRYSON) INTERPRETATION OF [...] lung abscess/empyema. For further information please refer to:[email or web address] Lab Interpretation (test code = 77966-5) Abnormal [facility] [id number] 17:16:42* Test Item Value Reference Range Interpretation Comme nts IRON (test code = 7561457447) 31 ug/dL 50-160 L TIBC (test code = 9821672616) 211 ug/dL 250-410 L % FE SAT (test code = 5340586027) 15 % 20-50 L Lab Interpretation (test cod e = 54781-3) Abnormal [facility] [id number] 17:16:42* Test Item Value Reference Range Interpretation Comme nts IRON (test code = 2310739782) 31 ug/dL 50-160 L TIBC (test code = 6849288243) 211 ug/dL 250-410 L % FE SAT (test code = 3708990966) 15 % 20-50 L Lab Interpretation (test cod e = 08802-6) Abnormal [facility] [id number] 17:16:42* Test Item Value Reference Range Interpretation Comme nts IRON (test code = 7182028986) 31 ug/dL 50-160 L TIBC (test code = 2271589297) 211 ug/dL 250-410 L % FE SAT (test code = 4730483686) 15 % 20-50 L Lab Interpretation (test cod e = 37730-0) [facility] / [id number] 15:25:33* Test Item Value Reference Range Interpretation Comme [facility] PROTIME PATIENT (test code = 5964-2) See_Comment [Automated [employer]] The system which generated this result transmitted reference range: 12.0 - 14.7 Seconds. The reference range was not used to interpret this result as normal/abnormal. INR (test code = 6301-6) Normal INR <1.1; Warfarin Therapeutic range 2.0 to 3.0 or 2.5 to 3.5, depending upon the indications. Lab Interpretation (test code = 10211-1) [facility]HR[facility] / [id number] 15:25:33* Test Item Value Reference Range Interpretation Comme [facility] PROTIME PATIENT (test code = 5964-2) See_Comment [Automated [employer]] The system which generated this result transmitted reference range: 12.0 - 14.7 Seconds. The reference range was not used to interpret this result as normal/abnormal. INR (test code = 6301-6) Normal INR <1.1; Warfarin Therapeutic range 2.0 to 3.0 or 2.5 to 3.5, depending upon the indications. Lab Interpretation (test code = 15280-5) [facility] / [id number] 15:25:33* Test Item Value Reference Range Interpretation Comme nts PROTIME PATIENT (test code = 5964-2) See_Comment [Automated [employer]] The system which generated this result transmitted reference range: 12.0 - 14.7 Seconds. The reference range was not used to interpret this result as normal/abnormal. INR (test code = 6301-6) Normal INR <1.1; Warfarin Therapeutic range 2.0 to 3.0 or 2.5 to 3.5, depending upon the indications. Lab Interpretation (test code = 57805-1) Normal [facility]ervilleSEDIMENTATION [id number] 10:28:31* Test Item Value Reference Range Interpretation Comme nts ESR (test code = 9022630165) See_Comment H [Automated messa ge] The system which generated this result transmitted reference range: 0 - 10 mm/HR. The reference range was not used to interpret this result as normal/abnormal. Lab Interpretation (test code = 65294-6) Abnormal [facility] [id number] 10:28:31* Test Item Value Reference Range Interpretation Comme nts ESR (test code = 3347663785) See_Comment H [Automated messa ge] The system which generated this result transmitted reference range: 0 - 10 mm/HR. The reference range was not used to interpret this result as normal/abnormal. Lab Interpretation (test code = 99924-7) Abnormal [facility] [id number] 10:28:31* Test Item Value Reference Range Interpretation Comme nts ESR (test code = 8254836338) See_Comment H [Automated messa ge] The system which generated this result transmitted reference range: 0 - 10 mm/HR. The reference range was not used to interpret this result as normal/abnormal. Lab Interpretation (test code = 02406-4) Abnormal [facility] [id number] 09:49:36* Test Item Value Reference Range Interpretation Comme nts FERRITIN (test code = 1571360344) 119.0 ng/mL 18.0-464.0 BRYSON (test code = BRYSON) Biotin has been reported to cause a negative bias, interpret results relative to patient's use of biotin. Lab Interpretation (test code = 35933-1) Normal [facility] [id number] 09:49:36* Test Item Value Reference Range Interpretation Comme nts FERRITIN (test code = 4100131580) 119.0 ng/mL 18.0-464.0 BRYSON (test code = BRYSON) Biotin has been reported to cause a negative bias, interpret results relative to patient's use of biotin. Lab Interpretation (test code = 51916-3) Normal [facility] [id number] 09:49:36* Test Item Value Reference Range Interpretation Comme nts FERRITIN (test code = 8760453175) 119.0 ng/mL 18.0-464.0 BRYSON (test code = BRYSON) Biotin has been reported to cause a negative bias, interpret results relative to patient's use of biotin. Lab Interpretation (test code = 95549-8) [facility] [id number] 09:45:35 * Test Item Value Reference Range Interpretation Comme nts TSH (test code = 8062781556) See_Comment [Automated messa ge] The system which generated this result transmitted reference range: 0.45 - 4.70 mIU/L. The reference range was not used to interpret this result as normal/abnormal. Lab Interpretation (test code = 44100-0) [facility] [id number] 09:45:35 * Test Item Value Reference Range Interpretation Comme nts TSH (test code = 5597240617) See_Comment [Automated messa ge] The system which generated this result transmitted reference range: 0.45 - 4.70 mIU/L. The reference range was not used to interpret this result as normal/abnormal. Lab Interpretation (test code = 68742-8) [facility] [id number] 09:45:35 * Test Item Value Reference Range Interpretation Comme nts TSH (test code = 9634615413) See_Comment [Automated messa ge] The system which generated this result transmitted reference range: 0.45 - 4.70 mIU/L. The reference range was not used to interpret this result as normal/abnormal. Lab Interpretation (test code = 09866-2) [facility] [id number] 09:24:29* Test Item Value Reference Range Interpretation Comme nts NT-proBNP (test code = 8913850508) 260 pg/mL See_Comment H [Automated message] The system which generated this result transmitted reference range: <=125. The reference range was not used to interpret this result as normal/abnormal. BRYSON (test code = BRYSON) Biotin has been reported to cause a negative bias, interpret results relative to patient's use of biotin. Lab Interpretation (test code = 07609-8) [facility] [id number] 09:24:29* Test Item Value Reference Range Interpretation Comme nts NT-proBNP (test code = 3478504120) 260 pg/mL See_Comment H [Automated message] The system which generated this result transmitted reference range: <=125. The reference range was not used to interpret this result as normal/abnormal. BRYSON (test code = BRYSON) Biotin has been reported to cause a negative bias, interpret results relative to patient's use of biotin. Lab Interpretation (test code = 76841-6) [facility] [id number] 09:24:29* Test Item Value Reference Range Interpretation Comme nts NT-proBNP (test code = 8529204658) 260 pg/mL See_Comment H [Automated message] The system which generated this result transmitted reference range: <=125. The reference range was not used to interpret this result as normal/abnormal. BRYSON (test code = BRYSON) Biotin has been reported to cause a negative bias, interpret results relative to patient's use of biotin. Lab Interpretation (test code = 93399-8) [facility]* Test Item Value Reference Range Interpretation Comme nts MAGNESIUM (test code = 9406058628) 1.6 mg/dL 1.7-2.4 L Lab Interpretation (test cod e = 09040-0) [facility]normal [facility]IP[facility] PAN[facility] (50601)(TOTAL CHOLESTEROL, TRIGLYCERIDES, HDL)2021-07-03 09:14:31* Test Item Value Reference Range Interpretation Comme nts CHOL (test code = 2839294161) 215 mg/dL 120-200 H HDL (test code = 2241627751) 41 mg/dL >40 HDLC RATIO (test code = 6402815528) See_Comment H [Automated [employer]] The system which generated this result transmitted reference range: <=5.0. The reference range was not used to interpret this result as normal/abnormal. TRIG (test code = 2856506671) 185 mg/dL 30-170 H LDL CHOL (test code = 57200-7) 137 mg/dL See_Comment [Automated [employer]] The system which generated this result transmitted reference range: <=160. The reference range was not used to interpret this result as normal/abnormal. VLDL (test code = 9474197980) 37 mg/dL 5-60 Lab Interpretation (test code = 09695-2) [facility]* Test Item Value Reference Range Interpretation Comme nts MAGNESIUM (test code = 4171039313) 1.6 mg/dL 1.7-2.4 L Lab Interpretation (test cod e = 82412-6) [facility]IP[facility] (17073)(TOTAL CHOLESTEROL, TRIGLYCERIDES, HDL)2021-07-03 09:14:31* Test Item Value Reference Range Interpretation Comme nts CHOL (test code = 2718183874) 215 mg/dL 120-200 H HDL (test code = 5334607137) 41 mg/dL >40 HDLC RATIO (test code = 3447581200) See_Comment H [Automated messa ge] The system which generated this result transmitted reference range: <=5.0. The reference range was not used to interpret this result as normal/abnormal. TRIG (test code = 8929087509) 185 mg/dL 30-170 H LDL CHOL (test code = 10094-7) 137 mg/dL See_Comment [Automated messa ge] The system which generated this result transmitted reference range: <=160. The reference range was not used to interpret this result as normal/abnormal. VLDL (test code = 7821496536) 37 mg/dL 5-60 Lab Interpretation (test code = 08230-2) [facility]2021-09-26 09:14:31* Test Item Value Reference Range Interpretation Comme nts MAGNESIUM (test code = 6737807514) 1.6 mg/dL 1.7-2.4 L Lab Interpretation (test cod e = 22771-4) [facility]normal [facility]IP[facility] (97149)(TOTAL CHOLESTEROL, TRIGLYCERIDES, HDL)2021-07-03 09:14:31* Test Item Value Reference Range Interpretation Comme nts CHOL (test code = 6316449369) 215 mg/dL 120-200 H HDL (test code = 2636143469) 41 mg/dL >40 HDLC RATIO (test code = 5323973453) See_Comment H [Automated messa ge] The system which generated this result transmitted reference range: <=5.0. The reference range was not used to interpret this result as normal/abnormal. TRIG (test code = 9019462866) 185 mg/dL 30-170 H LDL CHOL (test code = 82705-6) 137 mg/dL See_Comment [Automated messa ge] The system which generated this result transmitted reference range: <=160. The reference range was not used to interpret this result as normal/abnormal. VLDL (test code = 7532832010) 37 mg/dL 5-60 Lab Interpretation (test code = 71962-3) [facility]normal [facility]2021-09-26 09:14:11* Test Item Value Reference Range Interpretation Comme nts PHOSPHORUS (test code = 5127751229) 3.6 mg/dL 2.5-5.0 Lab Interpretation (test cod e = 35893-1) [facility]2021-09-26 09:14:11* Test Item Value Reference Range Interpretation Comme nts PHOSPHORUS (test code = 3515871870) 3.6 mg/dL 2.5-5.0 Lab Interpretation (test cod e = 74681-8) [facility]2021-09-26 09:14:11* Test Item Value Reference Range Interpretation Comme nts PHOSPHORUS (test code = 4277768841) 3.6 mg/dL 2.5-5.0 Lab Interpretation (test cod e = 35860-2) [facility] [id number] 09:13:51* Test Item Value Reference Range Interpretation Comme nts URIC ACID (test code = 1172659108) 4.4 mg/dL 3.6-8.0 Lab Interpretation (test cod e = 10353-2) [facility] [id number] 09:13:51* Test Item Value Reference Range Interpretation Comme nts URIC ACID (test code = 7085497451) 4.4 mg/dL 3.6-8.0 Lab Interpretation (test cod e = 28959-8) [facility] [id number] 09:13:51* Test Item Value Reference Range Interpretation Comme nts URIC ACID (test code = 8937370311) 4.4 mg/dL 3.6-8.0 Lab Interpretation (test cod e = 44692-5) Normal [facility]AT[facility] [id number] 09:13:50* Test Item Value Reference Range Interpretation Comme nts CK (test code = 4963874114) 122 U/L 33-194 Lab Interpretation (test cod e = 75228-0) Normal [facility] [id number] 09:13:50* Test Item Value Reference Range Interpretation Comme nts CK (test code = 5993593632) 122 U/L 33-194 Lab Interpretation (test cod e = 62357-3) Normal [facility] [id number] 09:13:50* Test Item Value Reference Range Interpretation Comme nts CK (test code = 1124445058) 122 U/L 33-194 Lab Interpretation (test cod e = 87169-8) Normal [facility]GLYCOSYLATED HEMOGLOBIN (A1C)2021-07-03 08:59:52* Test Item Value Reference Range Interpretation Comme nts HGB A1C (test code = 4548-4) 12.9 % 4.0-5.7 H BRYSON (test code = BRYSON) Reference RangesNormal: <5.7%Prediabetes: 5.7 - 6.4%Diabetes: > 6.5% Lab Interpretation (test code = 76156-0) [facility]normal [facility]YCOSYLATED HEMOGLOBIN (A1C)2021-07-03 08:59:52* Test Item Value Reference Range Interpretation Comme nts HGB A1C (test code = 4548-4) 12.9 % 4.0-5.7 H BRYSON (test code = BRYSON) Reference RangesNormal: <5.7%Prediabetes: 5.7 - 6.4%Diabetes: > 6.5% Lab Interpretation (test code = 18569-8) [facility]normal [facility]OS[facility]ATED HEMOGLOBIN (A1C)2021-07-03 08:59:52* Test Item Value Reference Range Interpretation Comme nts HGB A1C (test code = 4548-4) 12.9 % 4.0-5.7 H BRYSON (test code = BRYSON) Reference RangesNormal: <5.7%Prediabetes: 5.7 - 6.4%Diabetes: > 6.5% Lab Interpretation (test code = 24649-4) [facility]normal [facility]roponin [id number] 06:38:04* Test Item Value Reference Range Interpretation Comments TROPONIN I (test code = 1867371211) 0.014 ng/mL See_Comment [Automated message] The system which generated this result transmitted reference range: <=0.034. The reference range was not used to interpret this result as normal/abnormal. BRYSON (test code = BRYSON) Reference (Normal) Range (defined by the 99th percentile reference [...] patient's use of biotin. Lab Interpretation (test code = 75003-1) Normal [facility] [id number] 06:38:04* Test Item Value Reference Range Interpretation Comments TROPONIN I (test code = 7476384788) 0.014 ng/mL See_Comment [Automated message] The system which generated this result transmitted reference range: <=0.034. The reference range was not used to interpret this result as normal/abnormal. BRYSON (test code = BRYSON) Reference (Normal) Range (defined by the 99th percentile reference [...] patient's use of biotin. Lab Interpretation (test code = 36479-1) Normal [facility] [id number] 06:38:04* Test Item Value Reference Range Interpretation Comments TROPONIN I (test code = 3891099352) 0.014 ng/mL See_Comment [Automated message] The system which generated this result transmitted reference range: <=0.034. The reference range was not used to interpret this result as normal/abnormal. BRYSON (test code = BRYSON) Reference (Normal) Range (defined by the 99th percentile reference [...] patient's use of biotin. Lab Interpretation (test code = 97614-4) [facility] Metabolic Panel (14073)2021-07-03 06:26:45* Test Item Value Reference Range Interpretation Comme nts NA (test code = 5468873593) 131 mmol/L 135-145 L K (test code = 0106872692) 4.1 mmol/L 3.5-5.0 CL (test code = 4281417945) 101 mmol/L 98-108 CO2 TOTAL (test code = 7618820311) 23 mmol/L 23-31 AGAP (test code = 7903578828) 2-16 BUN (test code = 3011500611) 20 mg/dL 7-23 GLUCOSE (test code = 0497275802) 403 mg/dL 70-110 H CREATININE (test code = 3237252996) 1.06 mg/dL 0.60-1.25 TOTAL BILI (test code = 9912620185) 0.4 mg/dL 0.1-1.1 CALCIUM (test code = 0824708285) 9.3 mg/dL 8.6-10.6 T PROTEIN (test code = 2246520015) 7.5 g/dL 6.3-8.2 ALBUMIN (test code = 9528651571) 3.9 g/dL 3.5-5.0 ALK PHOS (test code = 7793721226) 122 U/L 34-122 ALTv (test code = 1742-6) 16 U/L 5-50 AST(SGOT) (test code = 7213685377) 18 U/L 13-40 eGFR (test code = 8544964097) mL/min/1.73m2 BRYSON (test code = BRYSON) Association of [...] or abnormalities in imaging tests). Lab Interpretation (test code = 46278-4) Abnormal [facility] Metabolic Panel (00118)2021-07-03 06:26:45* Test Item Value Reference Range Interpretation Comme nts NA (test code = 2914707682) 131 mmol/L 135-145 L K (test code = 1965057744) 4.1 mmol/L 3.5-5.0 CL (test code = 9152128864) 101 mmol/L 98-108 CO2 TOTAL (test code = 6483500858) 23 mmol/L 23-31 AGAP (test code = 9392519804) 2-16 BUN (test code = 7963587617) 20 mg/dL 7-23 GLUCOSE (test code = 9932208495) 403 mg/dL 70-110 H CREATININE (test code = 5603478319) 1.06 mg/dL 0.60-1.25 TOTAL BILI (test code = 1206425476) 0.4 mg/dL 0.1-1.1 CALCIUM (test code = 3629884228) 9.3 mg/dL 8.6-10.6 T PROTEIN (test code = 3710863241) 7.5 g/dL 6.3-8.2 ALBUMIN (test code = 4434170766) 3.9 g/dL 3.5-5.0 ALK PHOS (test code = 0600141193) 122 U/L 34-122 ALTv (test code = 1742-6) 16 U/L 5-50 AST(SGOT) (test code = 7053074148) 18 U/L 13-40 eGFR (test code = 2764860587) mL/min/1.73m2 BRYSON (test code = BRYSON) Association of [...] or abnormalities in imaging tests). Lab Interpretation (test code = 01126-8) [facility] Metabolic Panel (66918)2021-07-03 06:26:45* Test Item Value Reference Range Interpretation Comme nts NA (test code = 7410113741) 131 mmol/L 135-145 L K (test code = 8575491828) 4.1 mmol/L 3.5-5.0 CL (test code = 5116642221) 101 mmol/L 98-108 CO2 TOTAL (test code = 8655858542) 23 mmol/L 23-31 AGAP (test code = 6759189025) 2-16 BUN (test code = 3770693024) 20 mg/dL 7-23 GLUCOSE (test code = 5478093585) 403 mg/dL 70-110 H CREATININE (test code = 2594215067) 1.06 mg/dL 0.60-1.25 TOTAL BILI (test code = 1015355250) 0.4 mg/dL 0.1-1.1 CALCIUM (test code = 2405792696) 9.3 mg/dL 8.6-10.6 T PROTEIN (test code = 7358015626) 7.5 g/dL 6.3-8.2 ALBUMIN (test code = 1639720935) 3.9 g/dL 3.5-5.0 ALK PHOS (test code = 5926226702) 122 U/L 34-122 ALTv (test code = 1742-6) 16 U/L 5-50 AST(SGOT) (test code = 9700476756) 18 U/L 13-40 eGFR (test code = 2411335965) mL/min/1.73m2 BRYSON (test code = BRYSON) Association of [...] or abnormalities in imaging tests). Lab Interpretation (test code = 56737-2) Abnormal [facility] [id number] 06:17:42* Test Item Value Reference Range Interpretation Comme nts WBC (test code = 6690-2) See_Comment H [[employer]] The system which generated this result transmitted reference range: 4.20 - 10.70 10*3/?L. The reference range was not used to interpret this result as normal/abnormal. RBC (test code = 789-8) See_Comment L [[employer]] The system which generated this result transmitted reference range: 4.26 - 5.52 10*6/?L. The reference range was not used to interpret this result as normal/abnormal. HGB (test code = 718-7) 12.2 g/dL 12.2-16.4 HCT (test code = 4544-3) 35.2 % 38.4-49.3 L MCV (test code = 787-2) 90.7 fL 81.7-95.6 MCH (test code = 785-6) 31.4 pg 26.1-32.7 MCHC (test code = 786-4) 34.7 g/dL 31.2-35.0 RDW-SD (test code = 35304-4) 40.6 fL 38.5-51.6 RDW-CV (test code = 788-0) 12.2 % 12.1-15.4 PLT (test code = 777-3) See_Comment [Automated messa ge] The system which generated this result transmitted reference range: 150 - 328 10*3/?L. The reference range was not used to interpret this result as normal/abnormal. MPV (test code = 61298-7) 13.0 fL 9.8-13.0 NRBC/100 WBC (test code = 2198282434) See_Comment [Automated me ssage] The system which generated this result transmitted reference range: 0.0 - 10.0 /100 WBCs. The reference range was not used to interpret this result as normal/abnormal. NRBC x10^3 (test code = 4528102901) <0.01 See_Comment [Automated messa ge] The system which generated this result transmitted reference range: 10*3/?L. The reference range was not used to interpret this result as normal/abnormal. GRAN MAT (NEUT) % (test code = 770-8) 77.9 % IMM GRAN % (test code = 7116521299) 0.50 % LYMPH % (test code = 736-9) 11.6 % MONO % (test code = 5905-5) 9.2 % EOS % (test code = 713-8) 0.5 % BASO % (test code = 706-2) 0.3 % GRAN MAT x10^3(ANC) (test code = 5578944882) 9.93 10*3/uL 1.99-6.95 H IMM GRAN x10^3 (test code = 8023336414) 0.07 10*3/uL 0.00-0.06 H LYMPH x10^3 (test code = 731-0) 1.48 10*3/uL 1.09-3.23 MONO x10^3 (test code = 742-7) 1.18 10*3/uL 0.36-1.02 H EOS x10^3 (test code = 711-2) 0.06 10*3/uL 0.06-0.53 BASO x10^3 (test code = 704-7) 0.04 10*3/uL 0.01-0.09 Lab Interpretation (test code = 65608-8) Abnormal [facility] [id number] 06:17:42* Test Item Value Reference Range Interpretation Comme nts WBC (test code = 6690-2) See_Comment H [Automated messa ge] The system which generated this result transmitted reference range: 4.20 - 10.70 10*3/?L. The reference range was not used to interpret this result as normal/abnormal. RBC (test code = 789-8) See_Comment L [Automated messa ge] The system which generated this result transmitted reference range: 4.26 - 5.52 10*6/?L. The reference range was not used to interpret this result as normal/abnormal. HGB (test code = 718-7) 12.2 g/dL 12.2-16.4 HCT (test code = 4544-3) 35.2 % 38.4-49.3 L MCV (test code = 787-2) 90.7 fL 81.7-95.6 MCH (test code = 785-6) 31.4 pg 26.1-32.7 MCHC (test code = 786-4) 34.7 g/dL 31.2-35.0 RDW-SD (test code = 04861-6) 40.6 fL 38.5-51.6 RDW-CV (test code = 788-0) 12.2 % 12.1-15.4 PLT (test code = 777-3) See_Comment [Automated messa ge] The system which generated this result transmitted reference range: 150 - 328 10*3/?L. The reference range was not used to interpret this result as normal/abnormal. MPV (test code = 77775-2) 13.0 fL 9.8-13.0 NRBC/100 WBC (test code = 6894102759) See_Comment [Automated [employer] ssage] The system which generated this result transmitted reference range: 0.0 - 10.0 /100 WBCs. The reference range was not used to interpret this result as normal/abnormal. NRBC x10^3 (test code = 1902846533) <0.01 See_Comment [Automated messa ge] The system which generated this result transmitted reference range: 10*3/?L. The reference range was not used to interpret this result as normal/abnormal. GRAN MAT (NEUT) % (test code = 770-8) 77.9 % IMM GRAN % (test code = 3187337778) 0.50 % LYMPH % (test code = 736-9) 11.6 % MONO % (test code = 5905-5) 9.2 % EOS % (test code = 713-8) 0.5 % BASO % (test code = 706-2) 0.3 % GRAN MAT x10^3(ANC) (test code = 5156505872) 9.93 10*3/uL 1.99-6.95 H IMM GRAN x10^3 (test code = 5513391789) 0.07 10*3/uL 0.00-0.06 H LYMPH x10^3 (test code = 731-0) 1.48 10*3/uL 1.09-3.23 MONO x10^3 (test code = 742-7) 1.18 10*3/uL 0.36-1.02 H EOS x10^3 (test code = 711-2) 0.06 10*3/uL 0.06-0.53 BASO x10^3 (test code = 704-7) 0.04 10*3/uL 0.01-0.09 Lab Interpretation (test code = 43137-2) Abnormal [facility] [id number] 06:17:42* Test Item Value Reference Range Interpretation Comme nts WBC (test code = 6690-2) See_Comment H [Automated messa ge] The system which generated this result transmitted reference range: 4.20 - 10.70 10*3/?L. The reference range was not used to interpret this result as normal/abnormal. RBC (test code = 789-8) See_Comment L [Automated messa ge] The system which generated this result transmitted reference range: 4.26 - 5.52 10*6/?L. The reference range was not used to interpret this result as normal/abnormal. HGB (test code = 718-7) 12.2 g/dL 12.2-16.4 HCT (test code = 4544-3) 35.2 % 38.4-49.3 L MCV (test code = 787-2) 90.7 fL 81.7-95.6 MCH (test code = 785-6) 31.4 pg 26.1-32.7 MCHC (test code = 786-4) 34.7 g/dL 31.2-35.0 RDW-SD (test code = 66070-8) 40.6 fL 38.5-51.6 RDW-CV (test code = 788-0) 12.2 % 12.1-15.4 PLT (test code = 777-3) See_Comment [Automated messa ge] The system which generated this result transmitted reference range: 150 - 328 10*3/?L. The reference range was not used to interpret this result as normal/abnormal. MPV (test code = 93505-5) 13.0 fL 9.8-13.0 NRBC/100 WBC (test code = 6323655187) See_Comment [Automated [employer]] The system which generated this result transmitted reference range: 0.0 - 10.0 /100 WBCs. The reference range was not used to interpret this result as normal/abnormal. NRBC x10^3 (test code = 4550319461) <0.01 See_Comment [Automated messa ge] The system which generated this result transmitted reference range: 10*3/?L. The reference range was not used to interpret this result as normal/abnormal. GRAN MAT (NEUT) % (test code = 770-8) 77.9 % IMM GRAN % (test code = 3408839460) 0.50 % LYMPH % (test code = 736-9) 11.6 % MONO % (test code = 5905-5) 9.2 % EOS % (test code = 713-8) 0.5 % BASO % (test code = 706-2) 0.3 % GRAN MAT x10^3(ANC) (test code = 5585386963) 9.93 10*3/uL 1.99-6.95 H IMM GRAN x10^3 (test code = 0222835694) 0.07 10*3/uL 0.00-0.06 H LYMPH x10^3 (test code = 731-0) 1.48 10*3/uL 1.09-3.23 MONO x10^3 (test code = 742-7) 1.18 10*3/uL 0.36-1.02 H EOS x10^3 (test code = 711-2) 0.06 10*3/uL 0.06-0.53 BASO x10^3 (test code = 704-7) 0.04 10*3/uL 0.01-0.09 Lab Interpretation (test code = 40722-3) [facility]ATININE, RANDOM AND RATIO 2017-11-07 00:00:00* Test Item Value Reference Range Interpretation Comme nts CREATININE, URINE, CONC. (te st code = 2072) 36.2 MG/DL MICROALBUMIN, RANDOM (test c ode = 99720) 8.1 MG/DL CALC MICROALB/CREAT RND (sruthi t code = 25134) 224 MG/G MICROALBUMIN/CREATININE, RANDOM AND [id number] 00:00:00* Test Item Value Reference Range Interpretation Comme nts CREATININE, URINE, CONC. (te st code = 2072) 36.2 MG/DL MICROALBUMIN, RANDOM (test c ode = 32669) 8.1 MG/DL CALC MICROALB/CREAT RND (sruthi t code = 22515) 224 MG/G HEMOGLOBIN [id number] 00:00:00* Test Item Value Reference Range Interpretation Comme nts HEMOGLOBIN A1c (test code = 48995) 11.6 % HEMOGLOBIN [id number] 00:00:00* Test Item Value Reference Range Interpretation Comme nts HEMOGLOBIN A1c (test code = 17139) 11.6 % HEMOGLOBIN [id number] 00:00:00* Test Item Value Reference Range Interpretation Comme nts HEMOGLOBIN A1c (test code = 96808) 11.6 % COMPREHENSIVE METABOLIC [id number] 00:00:00* Test Item Value Reference Range Interpretation Comme nts GLUCOSE (test code = 2217) 267 MG/DL BUN (test code = 2208) 19 MG/DL CREATININE (test code = 2214) 0.73 MG/DL eGFR AMER. (test cod e = 50359) 124 ML/MIN/1.73 eGFR NON- AMER. (test code = 61978) 107 ML/MIN/1.73 CALC BUN/CREAT (test code = 2235) 26 RATIO SODIUM (test code = 2231) 139 MEQ/L POTASSIUM (test code = 2228) 4.4 MEQ/L CHLORIDE (test code = 2215) 100 MEQ/L CARBON DIOXIDE (test code = 2206) 25 MEQ/L CALCIUM (test code = 2209) 9.3 MG/DL PROTEIN, TOTAL (test code = 2229) 7.1 G/DL ALBUMIN (test code = 2201) 4.5 G/DL CALC GLOBULIN (test code = 2240) 2.6 G/DL CALC A/G RATIO (test code = 2234) 1.7 RATIO BILIRUBIN, TOTAL (test code = 2207) 0.2 MG/DL ALKALINE PHOSPHATASE (test code = 2204) 83 U/L AST (test code = 2218) 15 U/L ALT (test code = 2219) 22 U/L COMPREHENSIVE METABOLIC [id number] 00:00:00* Test Item Value Reference Range Interpretation Comme nts GLUCOSE (test code = 2217) 267 MG/DL BUN (test code = 2208) 19 MG/DL CREATININE (test code = 2214) 0.73 MG/DL eGFR AMER. (test cod e = 76008) 124 ML/MIN/1.73 eGFR NON- AMER. (test code = 91234) 107 ML/MIN/1.73 CALC BUN/CREAT (test code = 2235) 26 RATIO SODIUM (test code = 2231) 139 MEQ/L POTASSIUM (test code = 2228) 4.4 MEQ/L CHLORIDE (test code = 2215) 100 MEQ/L CARBON DIOXIDE (test code = 2206) 25 MEQ/L CALCIUM (test code = 2209) 9.3 MG/DL PROTEIN, TOTAL (test code = 2229) 7.1 G/DL ALBUMIN (test code = 2201) 4.5 G/DL CALC GLOBULIN (test code = 2240) 2.6 G/DL CALC A/G RATIO (test code = 2234) 1.7 RATIO BILIRUBIN, TOTAL (test code = 2207) 0.2 MG/DL ALKALINE PHOSPHATASE (test code = 2204) 83 U/L AST (test code = 2218) 15 U/L ALT (test code = 2219) 22 U/L LIPID [id number] 00:00:00* Test Item Value Reference Range Interpretation Comme nts CHOLESTEROL (test code = 2210) 224 MG/DL TRIGLYCERIDES (test code = 2232) 167 MG/DL HDL CHOLESTEROL (test code = 2220) 53 MG/DL CALC LDL CHOL (test code = 2237) 138 MG/DL RISK RATIO LDL/HDL (test cod e = 2238) 2.60 RATIO LIPID [id number] 00:00:00* Test Item Value Reference Range Interpretation Comme nts CHOLESTEROL (test code = 2210) 224 MG/DL TRIGLYCERIDES (test code = 2232) 167 MG/DL HDL CHOLESTEROL (test code = 2220) 53 MG/DL CALC LDL CHOL (test code = 2237) 138 MG/DL RISK RATIO LDL/HDL (test cod e = 2238) 2.60 RATIO MICROALBUMIN/CREATININE, RANDOM AND [id number] 00:00:00* Test Item Value Reference Range Interpretation Comme nts CREATININE, URINE, CONC. (te st code = 2071) 36.2 MG/DL MICROALBUMIN, RANDOM (test c ode = 25282) 8.1 MG/DL CALC MICROALB/CREAT RND (sruthi t code = 47279) 224 MG/G MICROALBUMIN/CREATININE, RANDOM AND [id number] 00:00:00* Test Item Value Reference Range Interpretation Comme nts CREATININE, URINE, CONC. (te st code = 2071) 36.2 MG/DL MICROALBUMIN, RANDOM (test c ode = 72132) 8.1 MG/DL CALC MICROALB/CREAT RND (sruthi t code = 29547) 224 MG/G HEMOGLOBIN [id number] 00:00:00* Test Item Value Reference Range Interpretation Comme nts HEMOGLOBIN A1c (test code = 45055) 11.6 % HEMOGLOBIN [id number] 00:00:00* Test Item Value Reference Range Interpretation Comme nts HEMOGLOBIN A1c (test code = 93082) 11.6 % HEMOGLOBIN [id number] 00:00:00* Test Item Value Reference Range Interpretation Comme nts HEMOGLOBIN A1c (test code = 20160) 11.6 % COMPREHENSIVE METABOLIC [id number] 00:00:00* Test Item Value Reference Range Interpretation Comme nts GLUCOSE (test code = 2217) 267 MG/DL BUN (test code = 2208) 19 MG/DL CREATININE (test code = 2214) 0.73 MG/DL eGFR AMER. (test cod e = 25195) 124 ML/MIN/1.73 eGFR NON- AMER. (test code = 68155) 107 ML/MIN/1.73 CALC BUN/CREAT (test code = 2235) 26 RATIO SODIUM (test code = 2231) 139 MEQ/L POTASSIUM (test code = 2228) 4.4 MEQ/L CHLORIDE (test code = 2215) 100 MEQ/L CARBON DIOXIDE (test code = 2206) 25 MEQ/L CALCIUM (test code = 2209) 9.3 MG/DL PROTEIN, TOTAL (test code = 2229) 7.1 G/DL ALBUMIN (test code = 2201) 4.5 G/DL CALC GLOBULIN (test code = 2240) 2.6 G/DL CALC A/G RATIO (test code = 2234) 1.7 RATIO BILIRUBIN, TOTAL (test code = 2207) 0.2 MG/DL ALKALINE PHOSPHATASE (test code = 2204) 83 U/L AST (test code = 2218) 15 U/L ALT (test code = 2219) 22 U/L COMPREHENSIVE METABOLIC [id number] 00:00:00* Test Item Value Reference Range Interpretation Comme nts GLUCOSE (test code = 2217) 267 MG/DL BUN (test code = 2208) 19 MG/DL CREATININE (test code = 2214) 0.73 MG/DL eGFR AMER. (test cod e = 43902) 124 ML/MIN/1.73 eGFR NON- AMER. (test code = 82056) 107 ML/MIN/1.73 CALC BUN/CREAT (test code = 2235) 26 RATIO SODIUM (test code = 2231) 139 MEQ/L POTASSIUM (test code = 2228) 4.4 MEQ/L CHLORIDE (test code = 2215) 100 MEQ/L CARBON DIOXIDE (test code = 2206) 25 MEQ/L CALCIUM (test code = 2209) 9.3 MG/DL PROTEIN, TOTAL (test code = 2229) 7.1 G/DL ALBUMIN (test code = 2201) 4.5 G/DL CALC GLOBULIN (test code = 2240) 2.6 G/DL CALC A/G RATIO (test code = 2234) 1.7 RATIO BILIRUBIN, TOTAL (test code = 2207) 0.2 MG/DL ALKALINE PHOSPHATASE (test code = 2204) 83 U/L AST (test code = 2218) 15 U/L ALT (test code = 2219) 22 U/L LIPID [id number] 00:00:00* Test Item Value Reference Range Interpretation Comme nts CHOLESTEROL (test code = 2210) 224 MG/DL TRIGLYCERIDES (test code = 2232) 167 MG/DL HDL CHOLESTEROL (test code = 2220) 53 MG/DL CALC LDL CHOL (test code = 2237) 138 MG/DL RISK RATIO LDL/HDL (test cod e = 2238) 2.60 RATIO LIPID [id number] 00:00:00* Test Item Value Reference Range Interpretation Comme nts CHOLESTEROL (test code = 2210) 224 MG/DL TRIGLYCERIDES (test code = 2232) 167 MG/DL HDL CHOLESTEROL (test code = 2220) 53 MG/DL CALC LDL CHOL (test code = 2237) 138 MG/DL RISK RATIO LDL/HDL (test cod e = 2238) 2.60 RATIO MICROALBUMIN/CREATININE, RANDOM AND [id number] 00:00:00* Test Item Value Reference Range Interpretation Comme nts CREATININE, URINE, CONC. (te st code = 2071) 84.2 MG/DL MICROALBUMIN, RANDOM (test c ode = 97450) 7.6 MG/DL CALC MICROALB/CREAT RND (sruthi t code = 59796) 90 MG/G MICROALBUMIN/CREATININE, RANDOM AND [id number] 00:00:00* Test Item Value Reference Range Interpretation Comme nts CREATININE, URINE, CONC. (te st code = 2071) 84.2 MG/DL MICROALBUMIN, RANDOM (test c ode = 61757) 7.6 MG/DL CALC MICROALB/CREAT RND (sruthi t code = 48444) 90 MG/G MICROALBUMIN/CREATININE, RANDOM AND [id number] 00:00:00* Test Item Value Reference Range Interpretation Comme nts CREATININE, URINE, CONC. (te st code = 2071) 84.2 MG/DL MICROALBUMIN, RANDOM (test c ode = 56750) 7.6 MG/DL CALC MICROALB/CREAT RND (sruthi t code = 45363) 90 MG/G MICROALBUMIN/CREATININE, RANDOM AND [id number] 00:00:00* Test Item Value Reference Range Interpretation Comme nts CREATININE, URINE, CONC. (te st code = 2072) 84.2 MG/DL MICROALBUMIN, RANDOM (test c ode = 48540) 7.6 MG/DL CALC MICROALB/CREAT RND (sruthi t code = 62504) 90 MG/G COMPREHENSIVE METABOLIC [id number] 00:00:00* Test Item Value Reference Range Interpretation Comme nts GLUCOSE (test code = 2217) 276 MG/DL BUN (test code = 2208) 20 MG/DL CREATININE (test code = 2214) 0.95 MG/DL eGFR AMER. (test cod e = 14748) 107 ML/MIN/1.73 eGFR NON- AMER. (test code = 84819) 92 ML/MIN/1.73 CALC BUN/CREAT (test code = 2235) 21 RATIO SODIUM (test code = 2231) 139 MEQ/L POTASSIUM (test code = 2228) 5.4 MEQ/L CHLORIDE (test code = 2215) 97 MEQ/L CARBON DIOXIDE (test code = 2206) 24 MEQ/L CALCIUM (test code = 2209) 10.0 MG/DL PROTEIN, TOTAL (test code = 2229) 7.7 G/DL ALBUMIN (test code = 2201) 4.9 G/DL CALC GLOBULIN (test code = 2240) 2.8 G/DL CALC A/G RATIO (test code = 2234) 1.8 RATIO BILIRUBIN, TOTAL (test code = 2207) 0.3 MG/DL ALKALINE PHOSPHATASE (test code = 2204) 98 U/L AST (test code = 2218) 22 U/L ALT (test code = 2219) 27 U/L COMPREHENSIVE METABOLIC [id number] 00:00:00* Test Item Value Reference Range Interpretation Comme nts GLUCOSE (test code = 2217) 276 MG/DL BUN (test code = 2208) 20 MG/DL CREATININE (test code = 2214) 0.95 MG/DL eGFR AMER. (test cod e = 42360) 107 ML/MIN/1.73 eGFR NON- AMER. (test code = 97022) 92 ML/MIN/1.73 CALC BUN/CREAT (test code = 2235) 21 RATIO SODIUM (test code = 2231) 139 MEQ/L POTASSIUM (test code = 2228) 5.4 MEQ/L CHLORIDE (test code = 2215) 97 MEQ/L CARBON DIOXIDE (test code = 2206) 24 MEQ/L CALCIUM (test code = 2209) 10.0 MG/DL PROTEIN, TOTAL (test code = 2229) 7.7 G/DL ALBUMIN (test code = 2201) 4.9 G/DL CALC GLOBULIN (test code = 2240) 2.8 G/DL CALC A/G RATIO (test code = 2234) 1.8 RATIO BILIRUBIN, TOTAL (test code = 2207) 0.3 MG/DL ALKALINE PHOSPHATASE (test code = 2204) 98 U/L AST (test code = 2218) 22 U/L ALT (test code = 2219) 27 U/L LIPID [id number] 00:00:00* Test Item Value Reference Range Interpretation Comme nts CHOLESTEROL (test code = 2210) 181 MG/DL TRIGLYCERIDES (test code = 2232) 228 MG/DL HDL CHOLESTEROL (test code = 2220) 49 MG/DL CALC LDL CHOL (test code = 2237) 86 MG/DL RISK RATIO LDL/HDL (test cod e = 2238) 1.76 RATIO LIPID [id number] 00:00:00* Test Item Value Reference Range Interpretation Comme nts CHOLESTEROL (test code = 2210) 181 MG/DL TRIGLYCERIDES (test code = 2232) 228 MG/DL HDL CHOLESTEROL (test code = 2220) 49 MG/DL CALC LDL CHOL (test code = 2237) 86 MG/DL RISK RATIO LDL/HDL (test cod e = 2238) 1.76 RATIO COMPREHENSIVE METABOLIC [id number] 00:00:00* Test Item Value Reference Range Interpretation Comme nts GLUCOSE (test code = 2217) 276 MG/DL BUN (test code = 2208) 20 MG/DL CREATININE (test code = 2214) 0.95 MG/DL eGFR AMER. (test cod e = 79843) 107 ML/MIN/1.73 eGFR NON- AMER. (test code = 06029) 92 ML/MIN/1.73 CALC BUN/CREAT (test code = 2235) 21 RATIO SODIUM (test code = 2231) 139 MEQ/L POTASSIUM (test code = 2228) 5.4 MEQ/L CHLORIDE (test code = 2215) 97 MEQ/L CARBON DIOXIDE (test code = 2206) 24 MEQ/L CALCIUM (test code = 2209) 10.0 MG/DL PROTEIN, TOTAL (test code = 2229) 7.7 G/DL ALBUMIN (test code = 2201) 4.9 G/DL CALC GLOBULIN (test code = 2240) 2.8 G/DL CALC A/G RATIO (test code = 2234) 1.8 RATIO BILIRUBIN, TOTAL (test code = 2207) 0.3 MG/DL ALKALINE PHOSPHATASE (test code = 2204) 98 U/L AST (test code = 2218) 22 U/L ALT (test code = 2219) 27 U/L COMPREHENSIVE METABOLIC [id number] 00:00:00* Test Item Value Reference Range Interpretation Comme nts GLUCOSE (test code = 2217) 276 MG/DL BUN (test code = 2208) 20 MG/DL CREATININE (test code = 2214) 0.95 MG/DL eGFR AMER. (test cod e = 02616) 107 ML/MIN/1.73 eGFR NON- AMER. (test code = 94572) 92 ML/MIN/1.73 CALC BUN/CREAT (test code = 2235) 21 RATIO SODIUM (test code = 2231) 139 MEQ/L POTASSIUM (test code = 2228) 5.4 MEQ/L CHLORIDE (test code = 2215) 97 MEQ/L CARBON DIOXIDE (test code = 2206) 24 MEQ/L CALCIUM (test code = 2209) 10.0 MG/DL PROTEIN, TOTAL (test code = 2229) 7.7 G/DL ALBUMIN (test code = 2201) 4.9 G/DL CALC GLOBULIN (test code = 2240) 2.8 G/DL CALC A/G RATIO (test code = 2234) 1.8 RATIO BILIRUBIN, TOTAL (test code = 2207) 0.3 MG/DL ALKALINE PHOSPHATASE (test code = 2204) 98 U/L AST (test code = 2218) 22 U/L ALT (test code = 2219) 27 U/L LIPID [id number] 00:00:00* Test Item Value Reference Range Interpretation Comme nts CHOLESTEROL (test code = 2210) 181 MG/DL TRIGLYCERIDES (test code = 2232) 228 MG/DL HDL CHOLESTEROL (test code = 2220) 49 MG/DL CALC LDL CHOL (test code = 2237) 86 MG/DL RISK RATIO LDL/HDL (test cod e = 2238) 1.76 RATIO LIPID [id number] 00:00:00* Test Item Value Reference Range Interpretation Comme nts CHOLESTEROL (test code = 2210) 181 MG/DL TRIGLYCERIDES (test code = 2232) 228 MG/DL HDL CHOLESTEROL (test code = 2220) 49 MG/DL CALC LDL CHOL (test code = 2237) 86 MG/DL RISK RATIO LDL/HDL (test cod e = 2238) 1.76 RATIO HEMOGLOBIN [id number] 00:00:00* Test Item Value Reference Range Interpretation Comme nts HEMOGLOBIN A1c (test code = 66811) 9.4 % HEMOGLOBIN [id number] 00:00:00* Test Item Value Reference Range Interpretation Comme nts HEMOGLOBIN A1c (test code = 94967) 9.4 % HEMOGLOBIN [id number] 00:00:00* Test Item Value Reference Range Interpretation Comme nts HEMOGLOBIN A1c (test code = 68097) 9.4 % HEMOGLOBIN [id number] 00:00:00* Test Item Value Reference Range Interpretation Comme nts HEMOGLOBIN A1c (test code = 64677) 9.4 % HEMOGLOBIN [id number] 00:00:00* Test Item Value Reference Range Interpretation Comme nts HEMOGLOBIN A1c (test code = 52981) 9.4 % HEMOGLOBIN [id number] 00:00:00* Test Item Value Reference Range Interpretation Comme nts HEMOGLOBIN A1c (test code = 49007) 9.4 % [id number] 00:00:00* Test Item Value Reference Range Interpretation Comme nts TSH (test code = 2821) 2.44 UIU/ML LIPID [id number] 00:00:00* Test Item Value Reference Range Interpretation Comme nts CHOLESTEROL (test code = 2210) 253 MG/DL TRIGLYCERIDES (test code = 2232) 162 MG/DL HDL CHOLESTEROL (test code = 2220) 40 MG/DL CALC LDL CHOL (test code = 2237) 181 MG/DL RISK RATIO LDL/HDL (test cod e = 2238) 4.52 RATIO LIPID [id number] 00:00:00* Test Item Value Reference Range Interpretation Comme nts CHOLESTEROL (test code = 2210) 253 MG/DL TRIGLYCERIDES (test code = 2232) 162 MG/DL HDL CHOLESTEROL (test code = 2220) 40 MG/DL CALC LDL CHOL (test code = 2237) 181 MG/DL RISK RATIO LDL/HDL (test cod e = 2238) 4.52 RATIO COMPREHENSIVE METABOLIC [id number] 00:00:00* Test Item Value Reference Range Interpretation Comme nts GLUCOSE (test code = 2217) 361 MG/DL BUN (test code = 2208) 19 MG/DL CREATININE (test code = 2214) 0.82 MG/DL eGFR AMER. (test cod e = 39124) 119 ML/MIN/1.73 eGFR NON- AMER. (test code = 77449) 102 ML/MIN/1.73 CALC BUN/CREAT (test code = 2235) 23 RATIO SODIUM (test code = 2231) 137 MEQ/L POTASSIUM (test code = 2228) 4.5 MEQ/L CHLORIDE (test code = 2215) 98 MEQ/L CARBON DIOXIDE (test code = 2206) 21 MEQ/L CALCIUM (test code = 2209) 9.6 MG/DL PROTEIN, TOTAL (test code = 2229) 7.4 G/DL ALBUMIN (test code = 2201) 4.7 G/DL CALC GLOBULIN (test code = 2240) 2.7 G/DL CALC A/G RATIO (test code = 2234) 1.7 RATIO BILIRUBIN, TOTAL (test code = 2207) 0.5 MG/DL ALKALINE PHOSPHATASE (test code = 2204) 108 U/L AST (test code = 2218) 19 U/L ALT (test code = 2219) 32 U/L COMPREHENSIVE METABOLIC [id number] 00:00:00* Test Item Value Reference Range Interpretation Comme nts GLUCOSE (test code = 2217) 361 MG/DL BUN (test code = 2208) 19 MG/DL CREATININE (test code = 2214) 0.82 MG/DL eGFR AMER. (test cod e = 72239) 119 ML/MIN/1.73 eGFR NON- AMER. (test code = 23360) 102 ML/MIN/1.73 CALC BUN/CREAT (test code = 2235) 23 RATIO SODIUM (test code = 2231) 137 MEQ/L POTASSIUM (test code = 2228) 4.5 MEQ/L CHLORIDE (test code = 2215) 98 MEQ/L CARBON DIOXIDE (test code = 2206) 21 MEQ/L CALCIUM (test code = 2209) 9.6 MG/DL PROTEIN, TOTAL (test code = 2229) 7.4 G/DL ALBUMIN (test code = 2201) 4.7 G/DL CALC GLOBULIN (test code = 2240) 2.7 G/DL CALC A/G RATIO (test code = 2234) 1.7 RATIO BILIRUBIN, TOTAL (test code = 2207) 0.5 MG/DL ALKALINE PHOSPHATASE (test code = 2204) 108 U/L AST (test code = 2218) 19 U/L ALT (test code = 221) 32 U/L PSA, [id number] 00:00:00* Test Item Value Reference Range Interpretation Comme nts PSA, TOTAL (test code = 2606) 0.36 NG/ML PSA, [id number] 00:00:00* Test Item Value Reference Range Interpretation Comme nts PSA, TOTAL (test code = 2606) 0.36 NG/ML PSA, [id number] 00:00:00* Test Item Value Reference Range Interpretation Comme nts PSA, TOTAL (test code = 2606) 0.36 NG/ML MICROALBUMIN/CREATININE, RANDOM AND [id number] 00:00:00* Test Item Value Reference Range Interpretation Comme nts CREATININE, URINE, CONC. (te st code = 2071) 108.1 MG/DL MICROALBUMIN, RANDOM (test c ode = 53200) 36.3 MG/DL CALC MICROALB/CREAT RND (sruthi t code = 37891) 336 MG/G MICROALBUMIN/CREATININE, RANDOM AND [id number] 00:00:00* Test Item Value Reference Range Interpretation Comme nts CREATININE, URINE, CONC. (te st code = 2071) 108.1 MG/DL MICROALBUMIN, RANDOM (test c ode = 39698) 36.3 MG/DL CALC MICROALB/CREAT RND (sruthi t code = 07866) 336 MG/G CBC W/AUTO [id number] 00:00:00* Test Item Value Reference Range Interpretation Comme nts WBC (test code = 1001) 7.5 K/UL RBC (test code = 1002) 4.97 M/UL HEMOGLOBIN (test code = 1003) 15.7 G/DL HEMATOCRIT (test code = 1004) 46.1 % MCV (test code = 1005) 92.8 fL MCH (test code = 1006) 31.6 PG MCHC (test code = 1007) 34.1 G/DL RDW (test code = 1038) 13.1 % NEUTROPHILS (test code = 1008) 55.4 % LYMPHOCYTES (test code = 1010) 34.5 % MONOCYTES (test code = 1011) 9.2 % EOSINOPHILS (test code = 1012) 0.8 % BASOPHILS (test code = 1013) 0.1 % PLATELET COUNT (test code = 1015) 210 K/UL CBC W/AUTO [id number] 00:00:00* Test Item Value Reference Range Interpretation Comme nts WBC (test code = 1001) 7.5 K/UL RBC (test code = 1002) 4.97 M/UL HEMOGLOBIN (test code = 1003) 15.7 G/DL HEMATOCRIT (test code = 1004) 46.1 % MCV (test code = 1005) 92.8 fL MCH (test code = 1006) 31.6 PG MCHC (test code = 1007) 34.1 G/DL RDW (test code = 1038) 13.1 % NEUTROPHILS (test code = 1008) 55.4 % LYMPHOCYTES (test code = 1010) 34.5 % MONOCYTES (test code = 1011) 9.2 % EOSINOPHILS (test code = 1012) 0.8 % BASOPHILS (test code = 1013) 0.1 % PLATELET COUNT (test code = 1015) 210 K/UL CBC W/AUTO [id number] 00:00:00* Test Item Value Reference Range Interpretation Comme nts WBC (test code = 1001) 7.5 K/UL RBC (test code = 1002) 4.97 M/UL HEMOGLOBIN (test code = 1003) 15.7 G/DL HEMATOCRIT (test code = 1004) 46.1 % MCV (test code = 1005) 92.8 fL MCH (test code = 1006) 31.6 PG MCHC (test code = 1007) 34.1 G/DL RDW (test code = 1038) 13.1 % NEUTROPHILS (test code = 1008) 55.4 % LYMPHOCYTES (test code = 1010) 34.5 % MONOCYTES (test code = 1011) 9.2 % EOSINOPHILS (test code = 1012) 0.8 % BASOPHILS (test code = 1013) 0.1 % PLATELET COUNT (test code = 1015) 210 K/UL HEMOGLOBIN [id number] 00:00:00* Test Item Value Reference Range Interpretation Comme nts HEMOGLOBIN A1c (test code = 69806) 13.3 % HEMOGLOBIN [id number] 00:00:00* Test Item Value Reference Range Interpretation Comme nts HEMOGLOBIN A1c (test code = 88122) 13.3 % HEMOGLOBIN [id number] 00:00:00* Test Item Value Reference Range Interpretation Comme nts HEMOGLOBIN A1c (test code = 82887) 13.3 % [id number] 00:00:00* Test Item Value Reference Range Interpretation Comme nts TSH (test code = 2821) 2.44 UIU/ML [id number] 00:00:00* Test Item Value Reference Range Interpretation Comme nts TSH (test code = 2821) 2.44 UIU/ML [id number] 00:00:00* Test Item Value Reference Range Interpretation Comme nts TSH (test code = 2821) 2.44 UIU/ML LIPID [id number] 00:00:00* Test Item Value Reference Range Interpretation Comme nts CHOLESTEROL (test code = 2210) 253 MG/DL TRIGLYCERIDES (test code = 2232) 162 MG/DL HDL CHOLESTEROL (test code = 2220) 40 MG/DL CALC LDL CHOL (test code = 2237) 181 MG/DL RISK RATIO LDL/HDL (test cod e = 2238) 4.52 RATIO LIPID [id number] 00:00:00* Test Item Value Reference Range Interpretation Comme nts CHOLESTEROL (test code = 2210) 253 MG/DL TRIGLYCERIDES (test code = 2232) 162 MG/DL HDL CHOLESTEROL (test code = 2220) 40 MG/DL CALC LDL CHOL (test code = 2237) 181 MG/DL RISK RATIO LDL/HDL (test cod e = 2238) 4.52 RATIO COMPREHENSIVE METABOLIC [id number] 00:00:00* Test Item Value Reference Range Interpretation Comme nts GLUCOSE (test code = 2217) 361 MG/DL BUN (test code = 2208) 19 MG/DL CREATININE (test code = 2214) 0.82 MG/DL eGFR AMER. (test cod e = 38655) 119 ML/MIN/1.73 eGFR NON- AMER. (test code = 84435) 102 ML/MIN/1.73 CALC BUN/CREAT (test code = 2235) 23 RATIO SODIUM (test code = 2231) 137 MEQ/L POTASSIUM (test code = 2228) 4.5 MEQ/L CHLORIDE (test code = 2215) 98 MEQ/L CARBON DIOXIDE (test code = 2206) 21 MEQ/L CALCIUM (test code = 2209) 9.6 MG/DL PROTEIN, TOTAL (test code = 2229) 7.4 G/DL ALBUMIN (test code = 2201) 4.7 G/DL CALC GLOBULIN (test code = 2240) 2.7 G/DL CALC A/G RATIO (test code = 2234) 1.7 RATIO BILIRUBIN, TOTAL (test code = 2207) 0.5 MG/DL ALKALINE PHOSPHATASE (test code = 2204) 108 U/L AST (test code = 2218) 19 U/L ALT (test code = 2219) 32 U/L COMPREHENSIVE METABOLIC [id number] 00:00:00* Test Item Value Reference Range Interpretation Comme nts GLUCOSE (test code = 2217) 361 MG/DL BUN (test code = 2208) 19 MG/DL CREATININE (test code = 2214) 0.82 MG/DL eGFR AMER. (test cod e = 69769) 119 ML/MIN/1.73 eGFR NON- AMER. (test code = 73613) 102 ML/MIN/1.73 CALC BUN/CREAT (test code = 2235) 23 RATIO SODIUM (test code = 2231) 137 MEQ/L POTASSIUM (test code = 2228) 4.5 MEQ/L CHLORIDE (test code = 2215) 98 MEQ/L CARBON DIOXIDE (test code = 2206) 21 MEQ/L CALCIUM (test code = 2209) 9.6 MG/DL PROTEIN, TOTAL (test code = 2229) 7.4 G/DL ALBUMIN (test code = 2201) 4.7 G/DL CALC GLOBULIN (test code = 2240) 2.7 G/DL CALC A/G RATIO (test code = 2234) 1.7 RATIO BILIRUBIN, TOTAL (test code = 2207) 0.5 MG/DL ALKALINE PHOSPHATASE (test code = 2204) 108 U/L AST (test code = 2218) 19 U/L ALT (test code = 2219) 32 U/L PSA, [id number] 00:00:00* Test Item Value Reference Range Interpretation Comme nts PSA, TOTAL (test code = 2606) 0.36 NG/ML PSA, [id number] 00:00:00* Test Item Value Reference Range Interpretation Comme nts PSA, TOTAL (test code = 2606) 0.36 NG/ML PSA, [id number] 00:00:00* Test Item Value Reference Range Interpretation Comme nts PSA, TOTAL (test code = 2606) 0.36 NG/ML MICROALBUMIN/CREATININE, RANDOM AND [id number] 00:00:00* Test Item Value Reference Range Interpretation Comme nts CREATININE, URINE, CONC. (te st code = 207) 108.1 MG/DL MICROALBUMIN, RANDOM (test c ode = 76396) 36.3 MG/DL CALC MICROALB/CREAT RND (sruthi t code = 65012) 336 MG/G MICROALBUMIN/CREATININE, RANDOM AND [id number] 00:00:00* Test Item Value Reference Range Interpretation Comme nts CREATININE, URINE, CONC. (te st code = 207) 108.1 MG/DL MICROALBUMIN, RANDOM (test c ode = 47174) 36.3 MG/DL CALC MICROALB/CREAT RND (sruthi t code = 28397) 336 MG/G CBC W/AUTO [id number] 00:00:00* Test Item Value Reference Range Interpretation Comme nts WBC (test code = 1001) 7.5 K/UL RBC (test code = 1002) 4.97 M/UL HEMOGLOBIN (test code = 1003) 15.7 G/DL HEMATOCRIT (test code = 1004) 46.1 % MCV (test code = 1005) 92.8 fL MCH (test code = 1006) 31.6 PG MCHC (test code = 1007) 34.1 G/DL RDW (test code = 1038) 13.1 % NEUTROPHILS (test code = 1008) 55.4 % LYMPHOCYTES (test code = 1010) 34.5 % MONOCYTES (test code = 1011) 9.2 % EOSINOPHILS (test code = 1012) 0.8 % BASOPHILS (test code = 1013) 0.1 % PLATELET COUNT (test code = 1015) 210 K/UL CBC W/AUTO [id number] 00:00:00* Test Item Value Reference Range Interpretation Comme nts WBC (test code = 1001) 7.5 K/UL RBC (test code = 1002) 4.97 M/UL HEMOGLOBIN (test code = 1003) 15.7 G/DL HEMATOCRIT (test code = 1004) 46.1 % MCV (test code = 1005) 92.8 fL MCH (test code = 1006) 31.6 PG MCHC (test code = 1007) 34.1 G/DL RDW (test code = 1038) 13.1 % NEUTROPHILS (test code = 1008) 55.4 % LYMPHOCYTES (test code = 1010) 34.5 % MONOCYTES (test code = 1011) 9.2 % EOSINOPHILS (test code = 1012) 0.8 % BASOPHILS (test code = 1013) 0.1 % PLATELET COUNT (test code = 1015) 210 K/UL CBC W/AUTO [id number] 00:00:00* Test Item Value Reference Range Interpretation Comme nts WBC (test code = 1001) 7.5 K/UL RBC (test code = 1002) 4.97 M/UL HEMOGLOBIN (test code = 1003) 15.7 G/DL HEMATOCRIT (test code = 1004) 46.1 % MCV (test code = 1005) 92.8 fL MCH (test code = 1006) 31.6 PG MCHC (test code = 1007) 34.1 G/DL RDW (test code = 1038) 13.1 % NEUTROPHILS (test code = 1008) 55.4 % LYMPHOCYTES (test code = 1010) 34.5 % MONOCYTES (test code = 1011) 9.2 % EOSINOPHILS (test code = 1012) 0.8 % BASOPHILS (test code = 1013) 0.1 % PLATELET COUNT (test code = 1015) 210 K/UL HEMOGLOBIN [id number] 00:00:00* Test Item Value Reference Range Interpretation Comme nts HEMOGLOBIN A1c (test code = 41221) 13.3 % HEMOGLOBIN [id number] 00:00:00* Test Item Value Reference Range Interpretation Comme nts HEMOGLOBIN A1c (test code = 03807) 13.3 % HEMOGLOBIN [id number] 00:00:00* Test Item Value Reference Range Interpretation Comme nts HEMOGLOBIN A1c (test code = 72274) 13.3 % [id number] 00:00:00* Test Item Value Reference Range Interpretation Comme nts TSH (test code = 2821) 2.44 UIU/ML [id number] 00:00:00* Test Item Value Reference Range Interpretation Comme nts TSH (test code = 2821) 2.44 UIU/ML
[2023-12-17 14:05] LABS: SARS-CoV-2 Antigen CONTROL BLUE LINE VIS/BG OK; SARS-CoV-2 Antigen Rapid Res Negative (Negative)
[2023-12-17 14:37] LABS: Absolute Basophils 0.1 K/uL (0-0.5); Absolute Eosinophils 0.2 K/uL (0-0.5); Absolute Lymphocytes (CBC) 1.4 K/uL (0.7-4.9); Absolute Monocytes 0.9 K/uL (0.1-1.3); Absolute Neutrophil 6.5 K/uL (1.8-8.0); Basophils % 0.6 % (0-1.3); Eosinophils % 2.6 % (0-4.4); Hematocrit 24.2 % (39.6-49.0); Hemoglobin 8.2 g/dL (13.6-17.9); Lymphocytes % 14.9 % (15.3-44.8); MCH 32.3 pg (27.0-35.0); MPV 9.5 fL (7.6-11.3); Monocytes % 9.4 % (3.3-12.3); Neutrophils % 72.5 % (41.7-73.7); Platelets 254 thou/uL (152-406); RBC Red Blood Cell Count 2.55 M/uL (4.33-5.43); Red Cell Distribution Width 14.1 % (12.1-15.2)
[2023-12-17 14:46] LABS: PT Prothrombin Time 11.2 SECONDS (9.5-12.5); Protime INR 1.02
--- NOTE | 2023-12-17 15:09 | RAD REPORT ---
EXAM DESCRIPTION: Alejandro Single View12/17/2023 2:14 pm CLINICAL HISTORY: Shortness of breath COMPARISON: 2022 FINDINGS: Pulmonary vascular congestion. The lungs appear clear of acute infiltrate. The heart is mildly enlarged
[2023-12-17 15:18] LABS: ALT/SGPT 25 U/L (16-61); AST/SGOT 21 U/L (15-37); Albumin 2.3 g/dL (3.4-5.0); Albumin/Globulin Ratio 0.6 (1.1-1.8); Alkaline Phosphatase 127 U/L (45-117); Anion Gap 9.4 mEq/L (5.0-15.0); BUN Blood Urea Nitrogen 49 mg/dL (7-18); Bicarbonate 22 mEq/L (21-32); Bilirubin Total 0.1 mg/dL (0.2-1.0); Globulin 3.7 g/dL (2.3-3.5); Glomerular Filtration Rate 23 ml/min (=/>90); Glucose Level 225 mg/dL (74-106); Magnesium 2.4 mg/dL (1.6-2.4); NT PRO-BNP 2886 pg/mL (<125); Potassium 4.4 mEq/L (3.5-5.1); Sodium Level 142 mEq/L (136-145); Troponin High Sensitivity 29.2 pg/mL (<58.9)
[2023-12-17 15:25] LABS: Bilirubin Direct < 0.1 mg/dL (0-0.2); Bilirubin Indirect, Calculated ND mg/dL (0.2-0.8)
[2023-12-17] MEDS ORDERED: ALBUTEROL 2.5 MG/3 ML NEB SOL ONE (15:55)
[2023-12-17] MEDS ORDERED: FUROSEMIDE 40 MG/4 ML VIAL ONE (15:55)
[2023-12-17] MEDS ORDERED: IPRATROPIUM BROM 0.5MG/2.5ML ONE (15:55)
[2023-12-17] MEDS ORDERED: MORPHINE 4 MG/ML SYR ONE (15:56)
--- NOTE | 2023-12-17 16:35 | EDPHYS ---
Physician Documentation [facility] Name: Michelet Godinez Age: 58 yrs Sex: Male : 1965 Arrival Date: 12/17/2023 Time: 13:29 Bed 18 Private MD: ED Physician Don Bui HPI: 12/16 13:45 This 58 yrs old Male presents to ER via Ambulatory with complaints of Leg cp Swelling, Breathing Difficulty. 13:45 The patient has shortness of breath with light activity. cp 13:45 Onset: The symptoms/episode began/occurred gradually. Duration: The symptoms are cp continuous, and are steadily getting worse. 13:45 Associated signs and symptoms: Pertinent positives: chest pain, Pertinent negatives: cp diaphoresis, dizziness, fever, vomiting. Severity of symptoms: in the emergency department the symptoms are unchanged despite home interventions. Historical: - Allergies: 14:30 No Known Allergies; db - PMHx: 13:39 diabetes mellitus; Hypertensive disorder; kd3 - Immunization history:: Adult Immunizations up to date. - Social history:: Smoking status: Patient denies any tobacco usage or history of. ROS: 13:50 Constitutional: Negative for body aches, chills, fever, poor PO intake, cp 13:50 Eyes: Negative for injury, pain, redness, and discharge, cp 13:50 ENT: Negative for drainage from ear(s), ear pain, sore throat, difficulty swallowing, difficulty handling secretions, 13:50 Cardiovascular: Positive for chest pain, edema, Negative for palpitations, 13:50 Respiratory: Positive for shortness of breath, on exertion. Negative for cough, wheezing, 13:50 Abdomen/GI: Negative for abdominal pain, vomiting, diarrhea, constipation, 13:50 Back: Negative for pain at rest, pain with movement, 13:50 Neuro: Negative for altered mental status, dizziness, headache, numbness, syncope, weakness, 13:50 All other systems are negative, Exam: 13:50 ECG was reviewed by the Attending Physician. cp 13:55 Constitutional: The patient appears in no acute distress, alert, awake, cp non-diaphoretic, non-toxic, well developed, well nourished, overweight 13:55 Head/Face: Normocephalic, atraumatic. cp 13:55 Eyes: Periorbital structures: appear normal, Conjunctiva: normal, no exudate, no injection, Sclera: no appreciated abnormality, Lids and lashes: appear normal, bilaterally, 13:55 ENT: External ear(s): are unremarkable, Nose: is normal, Mouth: Lips: moist, Oral mucosa: pink and intact, moist, Posterior pharynx: is normal, airway is patent, no erythema, no exudate, 13:55 Neck: ROM/movement: is normal, is supple, without pain, no range of motions limitations, 13:55 Chest/axilla: Inspection: normal, 13:55 Cardiovascular: Rate: normal, Rhythm: regular, Edema: ankle edema, that is moderate, 13:55 Respiratory: the patient does not display signs of respiratory distress, Respirations: labored breathing, that is mild, Breath sounds: are clear throughout, no decreased breath sounds, no stridor, no wheezing, 13:55 Abdomen/GI: Inspection: distension, that is mild, Bowel sounds: active, all quadrants, Palpation: abdomen is soft and non-tender, in all quadrants, 13:55 Back: pain, is absent, ROM is normal, 13:55 Skin: cellulitis, is not appreciated, no rash present. 13:55 Neuro: Orientation: to person, place \T\ time. Mentation: is normal, Motor: moves all fours, strength is normal, Vital Signs: 13:36 BP 165 / 74; Pulse 88; Resp 21; Temp 98.5(O); Pulse Ox 96% on R/A; Weight 99.79 kg; kd3 15:00 BP 156 / 65; Pulse 89; Resp 16; Pulse Ox 97% on R/A; db 16:00 BP 157 / 70; Pulse 80; Resp 16; Pulse Ox 100% ; db 17:00 BP 154 / 69; Pulse 86; Resp 18; Pulse Ox 95% on R/A; db 18:00 BP 151 / 75; Pulse 83; Resp 20; Pulse Ox 95% on R/A; db MDM: 13:41 Patient medically screened. cp 14:00 Differential diagnosis: CHF exacerbation, Myocardial Infarction pneumonia, Pneumothorax cp pulmonary edema, Pulmonary Embolism Sepsis Unstable Angina. 16:35 Data reviewed: vital signs, nurses notes, lab test result(s), EKG, radiologic studies, cp plain films. 16:35 Management of patient was discussed with the following: hospitalist will admit after cp discussion. I considered the following discharge prescriptions or medication management in the emergency department Medications were administered in the Emergency Department. See MAR. Independent interpretation of the following test(s) in the Emergency Department EKG: See my EKG interpretation above. Historians other than the Patient: Daughter/Son: daughter translates. Care significantly affected by the following chronic conditions: Diabetes, Hypertension. Counseling: I had a detailed discussion with the patient and/or guardian regarding the historical points, exam findings, and any diagnostic results supporting the discharge/admit diagnosis, lab results, radiology results, the need for further work-up and treatment in the hospital. 12/16 13:40 Order name: Basic Metabolic Panel; Complete Time: 15:34 cp 12/16 15:35 Interpretation: Normal except: CL 115; GLUC 225; BUN 49; CRE 3.02; GFR 23; CA 8.0. cp 12/16 13:40 Order name: CBC with Diff; Complete Time: 15:34 cp 12/16 15:35 Interpretation: Normal except: RBC 2.55; HGB 8.2; HCT 24.2; LYM% 14.9. 12/16 13:40 Order name: LFT's; Complete Time: 15:34 cp 12/16 16:09 Interpretation: ALK 127; BILIT 0.1; TP 6.0; ALB 2.3; GLOB 3.7; A/G 0.6. cp 12/16 13:40 Order name: Magnesium; Complete Time: 15:34 cp 12/16 13:40 Order name: NT PRO-BNP; Complete Time: 15:34 cp 12/16 15:36 Interpretation: Abnormal: NT PRO-BNP 2886. cp 12/16 13:40 Order name: PT-INR; Complete Time: 15:34 cp 12/16 13:40 Order name: Troponin HS; Complete Time: 15:34 cp 12/16 16:09 Interpretation: Reviewed. 12/16 13:40 Order name: SARS RAPID; Complete Time: 15:34 cp 12/16 17:01 Order name: T4 Free EDME 12/16 17:01 Order name: Thyroid Stimulating Hormone EDME 12/16 17:01 Order name: Basic Metabolic Panel EDME 12/16 17:01 Order name: Basic Metabolic Panel EDME 12/16 17:01 Order name: Basic Metabolic Panel EDME 12/16 17:01 Order name: CBC with Automated Diff EDMS 12/16 17:01 Order name: CBC with Automated Diff EDMS 12/16 17:01 Order name: CBC with Automated Diff EDMS 12/16 17:01 Order name: Lipid Profile EDME 12/16 17:01 Order name: Lipid Profile EDME 12/16 17:01 Order name: Magnesium EDMS 12/16 17:01 Order name: Magnesium EDMS 12/16 17:01 Order name: Magnesium EDMS 12/16 17:01 Order name: Phosphorus EDMS 12/16 17:01 Order name: Phosphorus EDMS 12/16 17:01 Order name: Phosphorus EDMS 12/16 17:01 Order name: Troponin High Sensitivity EDME 12/16 17:01 Order name: Troponin High Sensitivity EDME 12/16 17:01 Order name: Troponin High Sensitivity EDME 12/16 17:01 Order name: Urinalysis w/ reflexes EDME 12/16 13:40 Order name: XRAY Chest (1 view); Complete Time: 15:34 cp 12/16 15:03 Order name: US Extremity Venous W Compression Trevor cp 12/16 13:40 Order name: EKG; Complete Time: 13:41 cp 12/16 17:01 Order name: CONS Physician Consult EDME 12/16 13:40 Order name: Cardiac monitoring; Complete Time: 14:29 cp 12/16 13:40 Order name: EKG - Nurse/Tech; Complete Time: 13:45 cp 12/16 13:40 Order name: IV Saline Lock; Complete Time: 14:29 cp 12/16 13:40 Order name: Labs collected and sent; Complete Time: 14:29 cp 12/16 13:40 Order name: O2 Per Protocol; Complete Time: 14:29 cp 12/16 13:40 Order name: O2 Sat Monitoring; Complete Time: 14:29 cp EC:50 Rate is 86 beats/min. Rhythm is regular. [place] interval is normal. QRS interval is normal. cp QT interval is normal. T waves are Inverted in leads III, aVR. Interpreted by me. Reviewed by me. Administered Medications: 16:00 Drug: morphine IVP or IV 4 mg IVP once over 4 mins Route: IVP; Infused Over: 4 mins; db Site: right antecubital; 16:00 Drug: Furosemide IVP 40 mg IVP once; give over 2 minutes Route: IVP; Site: right db antecubital; 16:00 Drug: DuoNeb Nebulize (2.5 mg - 0.5 mg) 3 ml Nebulizer once Route: Nebulizer; db Disposition: 12/17 07:15 Co-signature as Attending Physician, Dno Bui MD I reviewed the patient's care rn provided by the Advanced Practice Provider and agree with the diagnosis and treatment plan. Disposition Summary: 12/17/23 16:34 Hospitalization Ordered Notes: Hospitalization Status: Inpatient Admission cp Provider: Jonn Kennedy cp Condition: Stable cp Problem: new cp Symptoms: have improved cp Bed/Room Type: Standard cp Location: Telemetry/MedSurg (Inpatient)(12/17/23 18:40) bd Room Assignment: 222(12/17/23 18:40) bd Diagnosis - Dyspnea cp - Unspecified kidney failure cp - Unspecified combined systolic (congestive) and diastolic (congestive) heart failure cp Forms: - Medication Reconciliation Form cp - SBAR form cp - Leadership Thank You Letter cp Signatures: Dispatcher [employer] Lilian Sher bd Don Bui MD MD rn Gilbert Monahan PA PA cp Maria Ines Winters RN RN kd3 Mary Thapa RN RN db Corrections: (The following items were deleted from the chart) 12/16 17:44 16:34 Telemetry/MedSurg (Inpatient) cp bd 17:44 16:34 cp bd 18:40 17:44 [facility] ER HOLD bd bd 18:40 17:44 ERHOLD- bd bd
--- NOTE | 2023-12-17 16:35 | ER ---
Nurse's Notes [facility] Name: Michelet Godinez Age: 58 yrs Sex: Male : 1965 Arrival Date: 12/17/2023 Time: 13:29 Bed 18 Private MD: Diagnosis: Dyspnea;Unspecified kidney failure;Unspecified combined systolic (congestive) and diastolic (congestive) heart failure Presentation: 12/16 13:36 Chief complaint: Patient's son or daughter states: He has been having a hard time kd3 breathing and his legs are swelling. He said that he has chest pains that comes and goes. It happens when i have issues breathing when he moves around. He is diabetic and has known heart issues. I don't remember what it is called but he takes medicine for fluids. Ebola Screen: No symptoms or risks identified at this time. Initial Sepsis Screen: Does the patient meet any 2 criteria? No. Patient's initial sepsis screen is negative. Does the patient have a suspected source of infection? No. Patient's initial sepsis screen is negative. Risk Assessment: Do you want to hurt yourself or someone else? Patient reports no desire to harm self or others. Onset of symptoms was December 17, 2023. 13:36 Method Of Arrival: Ambulatory kd3 13:36 Acuity: FERMIN 3 kd3 Triage Assessment: 13:39 General: Appears in no apparent distress. Behavior is calm, cooperative. Pain: Denies kd3 pain. Respiratory: Reports shortness of breath on exertion Onset: The symptoms/episode began/occurred at an unknown time. the patient has moderate shortness of breath. Historical: - Allergies: 14:30 No Known Allergies; db - PMHx: 13:39 diabetes mellitus; Hypertensive disorder; kd3 - Immunization history:: Adult Immunizations up to date. - Social history:: Smoking status: Patient denies any tobacco usage or history of. Screenin:30 [facility] ED Fall Risk Assessment (Adult) History of falling in the last 3 months, db including since admission No falls in past 3 months (0 pts) Confusion or Disorientation No (0 pts) Intoxicated or Sedated No (0 pts) Impaired Gait No (0 pts) Mobility Assist Device Used No (0 pt) Altered Elimination No (0 pt) Score/Fall Risk Level 0 - 2 = Low Risk Oriented to surroundings, Maintained a safe environment. Abuse screen: Denies threats or abuse. Denies injuries from another. Nutritional screening: No deficits noted. Tuberculosis screening: No symptoms or risk factors identified. Assessment: 15:00 Reassessment: Patient appears in no apparent distress at this time. Patient and/or db family updated on plan of care and expected duration. Pain level reassessed. Patient is alert, oriented x 3, equal unlabored respirations, skin warm/dry/pink. General: Appears in no apparent distress. comfortable. Neuro: Level of Consciousness is awake, alert, obeys commands, Oriented to person, place, time, situation. Cardiovascular: Rhythm is irregular. Respiratory: Airway is patent Respiratory effort is even, unlabored, Breath sounds are clear. 16:30 Reassessment: Patient appears in no apparent distress at this time. Patient and/or db family updated on plan of care and expected duration. Pain level reassessed. Patient is alert, oriented x 3, equal unlabored respirations, skin warm/dry/pink. 17:30 Reassessment: Patient appears in no apparent distress at this time. Patient and/or db family updated on plan of care and expected duration. Pain level reassessed. Patient is alert, oriented x 3, equal unlabored respirations, skin warm/dry/pink. 18:30 Reassessment: Patient appears in no apparent distress at this time. Patient and/or db family updated on plan of care and expected duration. Pain level reassessed. Patient is alert, oriented x 3, equal unlabored respirations, skin warm/dry/pink. Patient states feeling better. Patient states symptoms have improved. Vital Signs: 13:36 BP 165 / 74; Pulse 88; Resp 21; Temp 98.5(O); Pulse Ox 96% on R/A; Weight 99.79 kg; kd3 15:00 BP 156 / 65; Pulse 89; Resp 16; Pulse Ox 97% on R/A; db 16:00 BP 157 / 70; Pulse 80; Resp 16; Pulse Ox 100% ; db 17:00 BP 154 / 69; Pulse 86; Resp 18; Pulse Ox 95% on R/A; db 18:00 BP 151 / 75; Pulse 83; Resp 20; Pulse Ox 95% on R/A; db ED Course: 13:32 Patient arrived in ED. ra3 13:33 Gilbert Monahan PA is PHCP. cp 13:33 Don Bui MD is Attending Physician. cp 13:39 Triage completed. kd3 13:39 Arm band placed on right wrist. kd3 13:45 EKG done, by ED staff. kd3 14:16 XRAY Chest (1 view) In Process Unspecified. EDMS 14:16 Mary Thapa, RN is Primary Nurse. db 14:25 Inserted saline lock: 22 gauge in right forearm, using aseptic technique. Blood db collected. 14:25 Initial lab(s) drawn, by me, sent to lab. db 16:00 Patient has correct armband on for positive identification. Call light in reach. Side db rails up X 1. Client placed on continuous cardiac and pulse oximetry monitoring. NIBP monitoring applied. Warm blanket given. 16:17 US Extremity Venous W Compression Trevor In Process Unspecified. EDMS 16:33 Jonn Kennedy is Hospitalizing Provider. cp Administered Medications: 16:00 Drug: morphine IVP or IV 4 mg IVP once over 4 mins Route: IVP; Infused Over: 4 mins; db Site: right antecubital; 16:00 Drug: Furosemide IVP 40 mg IVP once; give over 2 minutes Route: IVP; Site: right db antecubital; 16:00 Drug: DuoNeb Nebulize (2.5 mg - 0.5 mg) 3 ml Nebulizer once Route: Nebulizer; db Medication: 16:00 VIS not applicable for this client. db Outcome: 16:34 Decision to Hospitalize by Provider. cp 19:42 Patient left the ED. [id number] Signatures: Dispatcher [employer] EDMD Gilbert Monahan PA PA cp Maria Ines Winters, RN RN kd3 Mary Thapa, RN RN db Miladis Herrera, RN RN km Julia Jack ra3
--- NOTE | 2023-12-17 16:39 | P.HP ---
Certification for Inpatient Patient admitted to: Observation With expected LOS: >2 Midnights Patient will require the following post-hospital care: None Practitioner: I am a practitioner with admitting privileges, knowledge of patient current condition, hospital course, and medical plan of care. Services: Services provided to patient in accordance with Admission requirements found in Title 42 Section 412.3 of the Code of Federal Regulations Patient History Date of Service: 12/17/23 Reason for admission: chest pain r/o ACS History of Present Illness: Michelet Godinez is a 58 year old male with pmhx diabetes mellitus, Hypertensive disorder, who presents to the ED with complaining of chest pain, cough, and SOB. Daughter is at the bedside and is a good historian. She reports he finally decided to come to the ED now that he is having a more difficult time breathing. She also reports he has times of "filling up with fluid" and his stomach gets hard. He had an ECHO in 2021 showing a normal EF, MAC, mitral and tricuspid regurgitation. On evaluation, he is coughing, dyspneic, with 3+ pitting edema to BLE. He has chronic kidney disease, he missed his nephrology appointment. He sees Dr. Sharp. While in the ED, he was given lasix, morphine, and duonebs. Chest xray reports " Pulmonary vascular congestion. The lungs appear clear of a cute infiltrate. The heart is mildly enlarged." Initial vitals: BP 165 / 74; Pulse 88; Resp 21; Temp 98.5(O); Pulse Ox 96% on R/A. Laboratory evaluation WBC 9, H&H 8.2/24.2, BUN/creatinine 49/3.02, GFR 23, alk phos 127, BNP 2886, troponin 29.2 Michelet will be admitted to hospitalist service for further evaluation and treatment for fluid volume overload secondary to CHF, chest pain r/o ACS, Dr. Chip rivera and Dr. Sharp consulted Allergies No Known Allergies Allergy (Verified 11/21/21 15:52) Home Medications: Amlodipine [Norvasc*] 10 mg PO DAILY 11/21/21 Metformin HCl [Glucophage*] 850 mg PO DAILY 11/21/21 Ferrous Sulfate [Iron] 325 mg PO DAILY 30 Days #30 tablet 11/24/21 Furosemide [Lasix] 40 mg PO DAILY 30 Days #30 tablet 11/24/21 carvediloL [Coreg*] 6.25 mg PO BID 30 Days #60 tab 11/24/21 lisinopriL [Prinivil*] 20 mg PO DAILY 30 Days #30 tab 11/24/21 - Past Medical/Surgical History -: NIDDM2 -: HTN -: R toe amputation - Family History Father -: Heart disease (~65 with DE) - Social History Alcohol use: Yes Review of Systems General: Weakness Respiratory: Cough, Shortness of Breath Cardiovascular: Chest Pain, Orthopnea Gastrointestinal: Nausea, Vomiting, Diarrhea Physical Examination - Physical Exam General: Alert, In no apparent distress, Oriented x3 HEENT: Atraumatic, Normocephalic, PERRLA Neck: Supple, 2+ carotid pulse no bruit Respiratory: Normal air movement, Crackles/rales Cardiovascular: Normal pulses, Regular rate/rhythm, Edema, Systolic murmur Capillary refill: <2 Seconds Gastrointestinal: Normal bowel sounds, Soft and benign, No tenderness, Distended Musculoskeletal: No erythema, No tenderness Integumentary: No breakdown, No significant lesion, No tenderness/swelling Neurological: Normal speech, Normal strength at 5/5 x4 extr, Normal tone - Studies Laboratory Data (last 24 hrs) 12/17/23 12/17/23 12/17/23 14:20 14:20 14:20 WBC 9.00 Hgb 8.2 L Hct 24.2 L Plt Count 254 PT 11.2 INR 1.02 Sodium 142 Potassium 4.4 BUN 49 H Creatinine 3.02 H Glucose 225 H Magnesium 2.4 Total Bilirubin 0.1 L AST 21 ALT 25 Alkaline Phosphatase 127 H Assessment and Plan - Plan Assessment and plan Chest pain rule out ACS Fluid volume overload secondary to congestive heart failure - Chest xray reports " Pulmonary vascular congestion. The lungs appear clear of acute infiltrate. The heart is mildly enlarged." - EKG: No obvious ST segment changes, NSR - US extremity venous with compress reports "No evidence of deep venous thrombosis involving either lower extremity" - troponin 29.2, Serial pending - BNP 2886, Lasix 40 mg IV given in the ED - TSH/T4, lipid panel, A1C pending - Echo ordered - Consult Cardiology - recommendations appreciated - Aspirin, statin daily - Morphine and nitroglycerin as needed - Continuous telemetry - Aggressive diuresis - Daily weight - strict I and O Acute on Chronic kidney disease Anemia of chronic disease -BUN/creatinine 49/3.02, GFR 23 -Consult nephrology-Dr. Sharp -H/H 8.2/ 24.2 -Monitor in AM labs -transfuse PRN Hx HTN -restart home medication if appropriate Diabetes mellitus- NIDDM -accucheck with SSI -Serum glucose 225 Echogenic bilateral Inguinal lymph nodes -Incidental finding to US extremity reports -likely reactive, US in 3 months recommended as outpatient DVT PPx heparin Full code LOS 2 to 3 days Discharge Plan: Home Plan to discharge in: 48 Hours - Advance Directives Does patient have a Living Will: No Does patient have a Durable POA for Healthcare: No
[2023-12-17] MEDS ORDERED: ALBUTEROL 2.5 MG/3 ML NEB SOL NEB PRN (16:51)
[2023-12-17] MEDS ORDERED: MORPHINE 2 MG/ML SYR IV PRN (16:51)
[2023-12-17] MEDS ORDERED: ONDANSETRON 4 MG/2 ML VIAL IV PRN (16:51)
[2023-12-17] MEDS ORDERED: NITROGLYCERIN 0.4 MG/TAB SL PRN (17:04)
--- NOTE | 2023-12-17 17:12 | RAD REPORT ---
EXAM DESCRIPTION: USExtrem Venous W Compress Bil12/17/2023 4:15 pm CLINICAL HISTORY: Leg pain COMPARISON: none FINDINGS: The common femoral, superficial femoral, greater saphenous, popliteal and posterior tibial veins bilaterally are compressible and demonstrate augmentation. Doppler demonstrates good flow. Grayscale, color and spectral analysis performed on all vessels Bilateral inguinal lymph nodes have echogenic centers and probably are reactive in nature. Follow up ultrasound in 3 months recommended to assess stability/resolution IMPRESSION: No evidence of deep venous thrombosis involving either lower extremity.
[2023-12-17] MEDS ORDERED: HEPARIN/D5W 25,000 UNIT/500 ML BAG IV SCH (19:00)
[2023-12-17 19:50] LABS: Specific Gravity 1.012 (1.005-1.030); Sqamous Epithelial None Seen /HPF (None Seen); Urine Bacteria None Seen /HPF (<20); Urine Bilirubin NEGATIVE (Negative); Urine Blood 1+ (Negative); Urine Clarity Clear (Clear); Urine Color Colorless (Yellow); Urine Culture Reflex Order NOT NEEDED; Urine Glucose 3+ (Negative); Urine Ketones NEGATIVE (Negative); Urine Microscopic Reflex YN ORDER UMIC; Urine Mucus Slight /HPF (None Seen); Urine Nitrite NEGATIVE (Negative); Urine Protein 3+ (Negative); Urine RBC <5 /HPF (None Seen); Urine Urobilinogen Normal (Normal); Urine WBC <5 /HPF (<5)
[2023-12-17 20:06] LABS: Thyroid Stimulating Hormone 3.44 uIU/mL (0.358-3.740)
[2023-12-17 20:21] VITALS: BMI 40.8
[2023-12-17] MEDS ORDERED: FUROSEMIDE 40 MG/4 ML VIAL IV SCH (21:00)
[2023-12-17] MEDS ORDERED: HEPARIN 5000 UNIT/ML 1 ML VIAL SQ SCH (21:00)
[2023-12-17] MEDS: INSULIN REGULAR (HUMAN) 100 UNIT/ML SQ SCH (21:55)
[2023-12-17] MEDS: HEPARIN/D5W 25,000 UNIT/500 ML BAG IV SCH (21:57)
[2023-12-18 07:56] LABS: Absolute Basophils 0.1 K/uL (0-0.5); Absolute Eosinophils 0.3 K/uL (0-0.5); Absolute Lymphocytes (CBC) 1.9 K/uL (0.7-4.9); Absolute Monocytes 0.8 K/uL (0.1-1.3); Absolute Neutrophil 5.6 K/uL (1.8-8.0); Eosinophils % 3.8 % (0-4.4); Hematocrit 25.5 % (39.6-49.0); Hemoglobin 8.6 g/dL (13.6-17.9); Lymphocytes % 21.6 % (15.3-44.8); MCH 32.3 pg (27.0-35.0); MCHC 33.8 g/dL (32.0-36.0); MCV 95.6 fL (80-100); MPV 9.2 fL (7.6-11.3); Monocytes % 9.1 % (3.3-12.3); Neutrophils % 64.5 % (41.7-73.7); Platelets 266 thou/uL (152-406); RBC Red Blood Cell Count 2.66 M/uL (4.33-5.43); Red Cell Distribution Width 14.5 % (12.1-15.2)
[2023-12-18 08:32] LABS: Anion Gap 8.3 mEq/L (5.0-15.0); Phosphorus 4.1 mg/dL (2.5-4.9); Potassium 4.3 mEq/L (3.5-5.1)
[2023-12-18 08:33] LABS: Magnesium 2.4 mg/dL (1.6-2.4)
[2023-12-18] MEDS: ACETAMINOPHEN 500 MG TAB PO PRN (08:36)
[2023-12-18] MEDS: FUROSEMIDE 40 MG/4 ML VIAL IV SCH ×2 (08:37→15:22)
--- NOTE | 2023-12-18 09:01 | RAD REPORT ---
EXAM DESCRIPTION: NM - Vent Perfusion VQ Scan - 12/18/2023 7:26 am CLINICAL HISTORY: Shortness of breath COMPARISON: Chest x-ray December 17, 2023 TECHNIQUE: Patient refused the ventilation component of the exam secondary to claustrophobia. 7.1 millicuries Technetium-99 MAA was administered intravenously. Anterior, posterior, lateral and ob lique views of the lungs were taken. FINDINGS: The lungs demonstrate relatively homogeneous radiotracer activity. No segmental or lobar defects noted IMPRESSION: Very low probability of a pulmonary embolus
--- NOTE | 2023-12-18 10:41 | RAD REPORT ---
EXAM DESCRIPTION: US - Renal Ultrasound-Complete - 12/18/2023 10:16 am CLINICAL HISTORY: Acute renal insufficiency COMPARISON: None FINDINGS: The right kidney measures 11 cm with a normal echotexture. The left kidney measures 11 cm with a normal echotexture. Hydronephrosis is not seen. No gross abnormality of bladder IMPRESSION: Unremarkable renal ultrasound.
[2023-12-18] MEDS: HEPARIN 5000 UNIT/ML 1 ML VIAL SQ SCH (11:29)
--- NOTE | 2023-12-18 11:39 | CON ---
Date of Consultation: 12/18/2023 Reason For Consultation: Elevated BUN and creatinine, fluid management. History Of Present Illness: This is a 58-year-old gentleman with significant past medical history of diabetes since 2009, complicated with neuropathy, no retinopathy, hypertension, hyperlipidemia, the patient came to the hospital with increased swelling over the last few weeks with shortness of breath and orthopnea. Echocardiogram showed normal ejection fraction with MR. The patient found to have e levation in BUN and creatinine. Creatinine was up to 3 with GFR of 23. Reviewing the record for the patient, creatinine used to be back in 2022 of January, 1.7 with GFR of 44. The patient denied taking any nonsteroidal. No current exposure to any contrast. The patient over the night was started on I V Lasix. The patient felt slightly better, but still shortness of breath. Past Medical History: 1.Diabetes complicated with neuropathy, no retinopathy. 2.Hypertension. Past Surgical History: Include right toe amputation. Allergies: NO KNOWN DRUGS ALLERGY. Home Medications: Include amlodipine, metformin, ferrous sulfate, Lasix, carvedilol, and lisinopril. Social History: Active alcohol. Denied drugs abuse. Denies smoking. Family History: Positive for diabetes and CAD. Review of Systems: Head and Neck: No red eye. No ear pain. GI: No nausea. No vomiting. : No polyuria. Has foamy urine. Has nocturia. CONSTRUCTION CHECKER: Not applicable. Respiratory: Has shortness of breath. Cardiovascular: Has orthopnea. Has leg swelling. Endocrine: No polydipsia. Skin: No rash. Physical Examination: General: When I saw the patient, the patient is lying in bed. Vital Signs: Blood pressure 188/82, pulse of 84, afebrile. Chest: Crackles bilateral base. Heart: S1, S2, systolic murmur. Abdomen: Soft, nontender. Extremities: +1 edema. Neurologic: Alert. No focality. Laboratory Data: Sodium 140, potassium 4.3, bicarb 23, BUN 47, creatinine 3, GFR 23, calcium 8.6, ma gnesium 2.4, phosphorus 4.1. TSH 3.4. WBC 8.6, hemoglobin 8.6. Urinalysis, +3 protein. Current Medications: The patient on include: 1.Albuterol. 2.Heparin. 3.Nitroglycerin. 4.Lasix 40 mg b.i.d. 5.Zofran. 6.Morphine. Assessment And Plan: 1.Acute kidney injury secondary to cardiorenal over volume with respiratory symptoms, superimposed w ith MYA inhibitor use and metformin. No hyperkalemia. No significant acidosis. 2.I agree with holding lisinopril and I am going to go ahead and increase Lasix to every 8 hours. W e will send for full workup for the patient and we will follow up the patient. 3.Hypertension, poorly controlled with the presence of acute kidney injury. Hold losartan. We will add carvedilol. Increase Lasix every 8 hours. We will follow up with Cardiology. 4.Congestive heart failure with exacerbation, preserved ejection fraction. We will follow up with C ardiology, questionable [id number] AR. 5.Proteinuria, not quantified with anasarca. Hypothyroidism has been ruled out. We will optimize d iuresis. Hold MYA inhibitor for the time being given the acute kidney injury with the presence of an emia. We will send for serum protein electrophoresis. 6.Anemia of chronic kidney disease. Send for workup including serum protein electrophoresis. 7.Anasarca secondary to cardiorenal. Hypothyroidism has been ruled out. We will quantify the prote inuria. We will increase Lasix. 8.Diabetes as by primary. Hold metformin given current kidney function. Time spent examining the patient [id number], reviewing data, lab and radiology, placing order, disc ussing the case with the patient and daughter by bedside, discussing the case with the team guide in cluding hospitalist and nursing staff more than 75 minutes. BARRIE Voice ID: [id number] Report ID: [id number]
--- NOTE | 2023-12-18 11:51 | P.PN ---
Date of Service: 12/18/23 Subjective: Still with some pain in his chest/back Denies other complaints, no acute events overnight ROS: 10 point ROS as noted above, otherwise negative Physical exam GEN: Alert, oriented, NAD HEENT: Normal conjunctiva, sclera anicteric CV: Regular rate and rhythm, 3+ edema lower extremities bilaterally Pulm: Nonlabored respirations on room air ABD: Soft, nontender, nondistended MSK: No joint tenderness Integumentary: No rashes Neuro: Normal speech, normal affect Vitals reviewed Problem List Acute on chronic diastolic congestive heart failure Chest pain rule out ACS Elevated D-dimer Acute kidney injury Anemia of chronic disease Hypertension Diabetes mellitus type [id number] Echogenic bilateral inguinal lymph nodes Plan Acute on chronic diastolic congestive heart failure Chest pain rule out ACS Elevated D-dimer Continue IV diuresis with Lasix-increase by nephrology today Troponin trended flat, perfusion scan with very low probability of PE Heparin drip discontinued Continue home medications, aspirin Appreciate further input from cardiology Denies ever having heart catheterization in the past Acute kidney injury Possibly CRS Continue with diuresis, Renal ultrasound unremarkable Nephrology following Anemia of chronic disease Monitor CBC Hypertension Continue home medications as appropriate, hold MYA/ARB given NÉSTOR Diabetes mellitus type [id number] ACHS Accu-Chek, sliding scale insulin Echogenic bilateral inguinal lymph nodes Repeat ultrasound as outpatient in 3 months Likely reactive VTE: Subcu heparin Code: Full Dispo: 48 to 72 hours Time Spent Managing Pts Care (In Minutes): 35
[2023-12-18] MEDS: carvediloL 6.25 MG TAB PO ONE (13:23)
--- NOTE | 2023-12-18 13:38 | P.CNS ---
Date of Consult: 12/18/23 Chief Complaint: chest pain r/o ACS History of Present Illness: patient with PMH of DM, HTN, HLD and CKD Stage 3 presented with chest pain and SOB that has been going on for weeks, describe as pressure sensation, can last for an hour, also report lower extremity swelling. and ANGELES. Allergies No Known Allergies Allergy (Verified 12/17/23 19:59) Home Medications: Amlodipine [Norvasc*] 10 mg PO DAILY 11/21/21 Furosemide [Lasix] 40 mg PO DAILY 30 Days #30 tablet 11/24/21 Atorvastatin Calcium 20 mg PO DAILY 12/17/23 Empagliflozin [Jardiance] 10 mg PO DAILY 12/17/23 Losartan Potassium 100 mg PO DAILY 12/17/23 glipiZIDE [Glipizide] 5 mg PO DAILY 12/17/23 Benzonatate [Tessalon Perle*] 100 mg PO TIDP PRN 12/18/23 Hydralazine HCl 100 mg PO TID 12/18/23 - Past Medical/Surgical History -: NIDDM2 -: HTN -: R toe amputation - Family History Father Medical History: Heart disease (~65 with NC) - Social History Alcohol use: Yes Review of Systems 10-point ROS is otherwise unremarkable Physical Examination Temp Pulse Resp BP Pulse Ox 98.2 F 82 22 H 176/88 H 94 12/18/23 08:36 12/18/23 13:23 12/18/23 08:00 12/18/23 13:23 12/18/23 08:00 General: Alert, Oriented x3 HEENT: Atraumatic Neck: Supple Respiratory: Crackles/rales Cardiovascular: Normal S1 S2, Edema Laboratory Data (last 24 hrs) 12/18/23 12/17/23 12/17/23 01:50 20:26 14:20 WBC Hgb Hct Plt Count PT 11.2 INR 1.02 APTT 50.8 H 34.4 Sodium Potassium BUN Creatinine Glucose Magnesium Total Bilirubin AST ALT Alkaline Phosphatase 12/17/23 12/17/23 14:20 14:20 WBC 9.00 Hgb 8.2 L Hct 24.2 L Plt Count 254 PT INR APTT Sodium 142 Potassium 4.4 BUN 49 H Creatinine 3.02 H Glucose 225 H Magnesium 2.4 Total Bilirubin 0.1 L AST 21 ALT 25 Alkaline Phosphatase 127 H - Problems (1) Chest pain Current Visit: Yes Status: Acute Plan: please get nuclear stress test in am (2) SOB (shortness of breath) Current Visit: Yes Status: Acute Plan: agree with IV lasix 40 mg IV TID, monitor input and output and electrolytes cloesly.
[2023-12-18] MEDS: HYDRALAZINE HCL 25 MG TABLET PO SCH (15:22)
[2023-12-18] MEDS: carvediloL 6.25 MG TAB PO SCH (18:23)
[2023-12-18] MEDS: BENZONATATE 100 MG CAP PO PRN (21:40)
[2023-12-19 03:20] LABS: Absolute Eosinophils 0.3 K/uL (0-0.5); Absolute Lymphocytes (CBC) 1.5 K/uL (0.7-4.9); Absolute Monocytes 0.8 K/uL (0.1-1.3); Absolute Neutrophil 4.9 K/uL (1.8-8.0); Basophils % 0.5 % (0-1.3); Eosinophils % 4.1 % (0-4.4); Hematocrit 23.8 % (39.6-49.0); Lymphocytes % 19.7 % (15.3-44.8); MCH 31.7 pg (27.0-35.0); MCHC 33.6 g/dL (32.0-36.0); MCV 94.5 fL (80-100); MPV 9.7 fL (7.6-11.3); Monocytes % 10.8 % (3.3-12.3); Neutrophils % 64.9 % (41.7-73.7); Percent Reticulocyte Count 1.58 % (0.4-2.05); Platelets 244 thou/uL (152-406); RBC Red Blood Cell Count 2.52 M/uL (4.33-5.43); Red Cell Distribution Width 14.2 % (12.1-15.2)
[2023-12-19 03:54] LABS: Albumin 2.2 g/dL (3.4-5.0); Anion Gap 8.4 mEq/L (5.0-15.0); Ferritin 75.9 ng/mL (26-388); Magnesium 2.2 mg/dL (1.6-2.4); Phosphorus 4.3 mg/dL (2.5-4.9); Potassium 4.4 mEq/L (3.5-5.1); Thyroid Stimulating Hormone 2.55 uIU/mL (0.358-3.740); Uric Acid 6.6 mg/dL (3.5-7.2)
[2023-12-19 04:25] LABS: Rheumatoid Factor NEG (NEG)
[2023-12-19 06:16] LABS: Specific Gravity 1.011 (1.005-1.030); Sqamous Epithelial None Seen /HPF (None Seen); Urine Bacteria None Seen /HPF (<20); Urine Bilirubin NEGATIVE (Negative); Urine Blood 1+ (Negative); Urine Clarity Clear (Clear); Urine Color Colorless (Yellow); Urine Culture Reflex Order NOT NEEDED; Urine Glucose 2+ (Negative); Urine Ketones NEGATIVE (Negative); Urine Microscopic Reflex YN ORDER UMIC; Urine Nitrite NEGATIVE (Negative); Urine Protein 3+ (Negative); Urine RBC <5 /HPF (None Seen); Urine Urobilinogen Normal (Normal); Urine WBC <5 /HPF (<5); Urine pH 6.5 (5.0-7.0)
[2023-12-19] MEDS: ATORVASTATIN 20 MG TAB PO SCH (08:11)
[2023-12-19] MEDS: AMLODIPINE 10 MG TAB PO SCH (08:12)
[2023-12-19] MEDS: ASPIRIN EC 81 MG TAB PO SCH (08:12)
[2023-12-19 09:59] LABS: UR PROTEIN 425.9 mg/dL (<11.9); Urine Protein/Creatinine Ratio 10.39 ratio (<0.15)
--- NOTE | 2023-12-19 10:46 | PN ---
Date of Progress Note: 12/18/2023 Subjective: The patient was admitted to the hospital with acute kidney injury on advanced chronic ki dney disease, over volume. His acute kidney injury was secondary to his cardiorenal. The patient wa s started on diuresis. Kidney function continued to improve. The patient had good urine output. Sh ortness of breath has been subsided. The patient is on room air. Physical Examination: Vital Signs: Blood pressure 172/82, pulse of 81, afebrile. The patient had good urine output of 190 0- of 1100. Chest: Clear to auscultation. Heart: S1, S2 regular. Abdomen: Morbidly obese. Could not appreciate any organomegaly. Extremities: Trace edema. Venous stasis change. Neurologic: Alert. No focality. Laboratory Data: Hemoglobin of 8. Sodium 138, potassium 4.4, bicarb 24, BUN 47, creatinine 2.8. Co ntinue to trend down GFR of 25, uric acid 6.6, calcium 8.3, phosphorus 4.3, albumin 2.2, corrected ca lcium is 9.9. Serum protein electrophoresis is still pending. PTH 140. PC ratio of 10 g. Renal ul trasound, normal size kidney, no hydronephrosis, 08/18. Assessment And Plan: 1.Acute kidney injury, normal size kidney 08/18, nephrotic range of proteinuria, mostly secondary to cardiorenal syndrome. The patient looked to me started to be normal volume. I am going to go ahead and change Lasix to oral and we will follow up the patient. Keep holding MYA inhibitor for the time being. We will consider rechallenging as outpatient. 2.Hypertension, not controlled. Yesterday, we added carvedilol. Blood pressure still elevated. I am going to go ahead and increase carvedilol to 12.5. Continue hydralazine. I will add low dose of clonidine for better blood pressure control and we will follow up the patient. 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 Serum protein electroph oresis is still pending. Serology is still pending. We will follow up. 4.Anemia with the presence of acute kidney injury. Serum protein electrophoresis to rule out light chain disease has been sent still pending. We will follow up iron store workup, still pending. We w ill follow up with the current blood pressure. I am going to be reluctant to give any LISSETTE for the ti me being. We will follow up the rest of iron study to evaluate if the patient is going to need IV ir on. 5.Secondary hyperparathyroidism. Calcium, phosphorus, and PTH on the goal. No need for vitamin D. 6.Diabetes as by primary. 7.Congestive heart failure with exacerbation. We will follow up with the Primary and Cardiology. 8.Anasarca secondary to cardiorenal/nephrotic range of proteinuria. We will optimize diuresis and w e will follow up. ISIDRO/MELISSA Voice ID: [id number] Report ID: [id number]
--- NOTE | 2023-12-19 11:21 | P.PN ---
Date of Service: 12/19/23 Subjective: Slow improvement of dyspnea, chest pain, LE edema ROS: 10 point ROS as noted above, otherwise negative Physical exam GEN: Alert, oriented, NAD HEENT: Normal conjunctiva, sclera anicteric CV: Regular rate and rhythm, 2+ edema lower extremities bilaterally Pulm: Nonlabored respirations on room air ABD: Soft, nontender, nondistended MSK: No joint tenderness Integumentary: No rashes Neuro: Normal speech, normal affect Vitals reviewed Problem List Acute on chronic diastolic congestive heart failure Chest pain rule out ACS Elevated D-dimer Acute kidney injury Anemia of chronic disease/Iron deficiency anemia Hypertension Diabetes mellitus type [id number] Echogenic bilateral inguinal lymph nodes Plan Acute on chronic diastolic congestive heart failure Chest pain rule out ACS Elevated D-dimer Continue IV diuresis with Lasix-nephrology and cardiology following Troponin trended flat, perfusion scan with very low probability of PE Negative for DVT HALLE LE Heparin drip discontinued 12/17 Continue home medications, aspirin Plan fir stress test either today or 12/19 Still with orthopnea, edema Acute kidney injury Possibly CRS Continue with diuresis, Renal ultrasound unremarkable Nephrology following mild improvement Anemia of chronic disease/Iron deficiency anemia Monitor CBC will require iron supplementation Hypertension Continue home medications as appropriate, hold MYA/ARB given NÉSTOR Diabetes mellitus type 2wap-eohuquy-dhuhrzbar ACHS Accu-Chek, sliding scale insulin Echogenic bilateral inguinal lymph nodes Repeat ultrasound as outpatient in 3 months Likely reactive VTE: Subcu heparin Code: Full Dispo: 48 to 72 hours Time Spent Managing Pts Care (In Minutes): 35
[2023-12-19] MEDS: carvediloL 12.5 MG TAB PO SCH (16:50)
[2023-12-19] MEDS: FUROSEMIDE 40 MG TABLET PO SCH (16:51)
--- NOTE | 2023-12-19 17:14 | P.PN ---
Subjective Date of Service: 12/19/23 Chief Complaint: chest pain r/o ACS Subjective: No new changes Review of Systems 10-point ROS is otherwise unremarkable Physical Examination - Vital Signs Temperature: 98.3 F Blood Pressure: 143/80 Pulse: 68 Respirations: 22 Pulse Ox (%): 95 - Physical Exam General: Alert, Oriented x3 HEENT: Atraumatic Neck: Supple Respiratory: Clear to auscultation bilaterally Cardiovascular: No edema, Normal S1 S2 Gastrointestinal: Normal bowel sounds Assessment And Plan - Current Problems (Diagnosis) (1) Chest pain Current Visit: Yes Status: Acute Plan: Patient is pending stress test, please get in am. (2) SOB (shortness of breath) Current Visit: Yes Status: Acute Plan: agree with switching lasix to 80 mg po BID, monitor input and output and electrolytes cloesly.
[2023-12-19] MEDS: cloNIDine HCL 0.1 MG TAB PO SCH (21:14)
[2023-12-20 03:58] LABS: Hematocrit 21.4 % (39.6-49.0); Hemoglobin 7.3 g/dL (13.6-17.9); MCH 32.2 pg (27.0-35.0); MCHC 34.1 g/dL (32.0-36.0); MCV 94.7 fL (80-100); MPV 9.6 fL (7.6-11.3); Platelets 214 thou/uL (152-406); RBC Red Blood Cell Count 2.26 M/uL (4.33-5.43); Red Cell Distribution Width 14.1 % (12.1-15.2)
[2023-12-20 04:06] LABS: Albumin 2.1 g/dL (3.4-5.0); Anion Gap 8.7 mEq/L (5.0-15.0); Phosphorus 4.6 mg/dL (2.5-4.9); Potassium 4.7 mEq/L (3.5-5.1)
--- NOTE | 2023-12-20 08:02 | ECHO ---
HEIGHT: 5 ft 4 in WEIGHT: 231 lb 0 oz DATE OF STUDY: 12/19/[address]: Kyle Cast MD 2-DIMENSIONAL: YES M.MODE: YES DOPPLER: YES COLOR FLOW: YES TDS: YES PORTABLE: YES DEFINITY: BUBBLE STUDY: DIAGNOSIS: CHEST PAIN CARDIAC HISTORY: CATHERIZATION: NO SURGERY: NO PROSTHETIC VALVE: NO PACEMAKER: NO MEASUREMENTS (cm) DIASTOLIC (NORMALS) SYSTOLIC (NORMALS) IVSd 1.2 (0.6-1.2) LA Diam 3.4 (1.9-4.0) LVEF 32% LVIDd 5.3 (3.5-5.7) LVIDs 4.5 (2.0-3.5) %FS 15% LVPWd 1.2 (0.6-1.2) Ao Diam 3.3 (2.0-3.7) 2 DIMENSIONAL ASSESSMENT: RIGHT ATRIUM: NORMAL LEFT ATRIUM: NORMAL RIGHT VENTRICLE: NORMAL LEFT VENTRICLE: NORMAL TRICUSPID VALVE: TRACE TRICUSPID REGURGITATION MITRAL VALVE: NORMAL PULMONIC VALVE: NORMAL AORTIC VALVE: NORMAL PERICARDIAL EFFUSION: NONE AORTIC ROOT: NORMAL LEFT VENTRICULAR WALL MOTION: NORMAL DOPPLER/COLOR FLOW: GRADE II DIASTOLIC DYSFUCNTION COMMENTS: 1. NORMAL LEFT VENTRICULAR SYSTOLIC FUNCTION, EJECTION FRACTION 55-60%, NORMAL WALL MOTION. 2. GRADE II DIASTOLIC DYSFUCNTION TECHNOLOGIST: MATTHEW WILEY
[2023-12-20] MEDS ORDERED: REGADENOSON 0.4 MG/5 ML SYR IV ONE (09:20)
--- NOTE | 2023-12-20 10:28 | RAD REPORT ---
EXAM DESCRIPTION: NM - Rest Stress Cardiac Imaging - 12/20/2023 9:51 am CLINICAL HISTORY: CP COMPARISON: No comparisons TECHNIQUE: The patient was administered approximately 10.2 mCi of Tc 99m Sestamibi prior to resting SPECT imaging of the heart. The patient was then administered approximately 30.6 mCi of Tc 99m Sestam ibi following exercise or pharmacologic stress. Multiplanar SPECT images were reviewed. FINDINGS: Small fixed defect at the apex and adjacent anteroseptal wall, with adjacent peripheral re versible defects involving the apical segments of the anterior and septal oconnor and mid segment of th e anterior wall, suggesting an infarct with peripheral regions of ischemia. Small mid segment inferio r wall fixed defect suggesting a region of infarct. The end diastolic volume is 186 ml, the end systolic volume is 102 ml, and the ejection fraction is 4 5 %. IMPRESSION: Reversible defect along the apical segments of the anterior and septal oconnor, suggesting areas ischemia adjacent to a small region of infarct at the apex and adjacent anteroseptal wall. Additional small region of infarct suggested along the mid aspect of the inferior wall. Mildly reduced left ventricular ejection fraction, 45%.
--- NOTE | 2023-12-20 12:49 | P.PN ---
Subjective Date of Service: 12/20/23 Chief Complaint: chest pain r/o ACS Subjective: No new changes Review of Systems 10-point ROS is otherwise unremarkable Physical Examination - Vital Signs Temperature: 98.2 F Blood Pressure: 141/68 Pulse: 81 Respirations: 18 Pulse Ox (%): 94 - Physical Exam General: Alert, Oriented x3 HEENT: Atraumatic Neck: Supple Respiratory: Clear to auscultation bilaterally Cardiovascular: No edema, Normal S1 S2 Gastrointestinal: Normal bowel sounds Assessment And Plan - Current Problems (Diagnosis) (1) Chest pain Current Visit: Yes Status: Acute Plan: Patient stress test is abnormal, discussed results in details with patient and family, plan is to proceed with left,right heart cath and coronary angiogram patient agrees with procedure and understand risks and benefits. (2) SOB (shortness of breath) Current Visit: Yes Status: Acute Plan: agree with switching lasix to 80 mg po BID, will get right heart cath monitor input and output and electrolytes cloesly.
[2023-12-20] MEDS: SOD FERRIC GLUC COMPLX/SUCROSE 250 MG in NA CHLORIDE 0.9% 250 ML IV SCH (13:00)
[2023-12-20] MEDS: NA CHLORIDE 0.9% 1,000 ML IV SCH (13:00)
--- NOTE | 2023-12-20 13:20 | P.PN ---
Date of Service: 12/20/23 Subjective: Slow improvement of dyspnea, chest pain, LE edema Stress test positive, going for heart cath ROS: 10 point ROS as noted above, otherwise negative Physical exam GEN: Alert, oriented, NAD HEENT: Normal conjunctiva, sclera anicteric CV: Regular rate and rhythm, 2+ edema lower extremities bilaterally Pulm: Nonlabored respirations on room air ABD: Soft, nontender, nondistended MSK: No joint tenderness Integumentary: No rashes Neuro: Normal speech, normal affect Vitals reviewed Problem List Acute on chronic diastolic congestive heart failure Chest pain rule out ACS Elevated D-dimer Acute kidney injury Anemia of chronic disease/Iron deficiency anemia Hypertension Diabetes mellitus type [id number]-[id number] Echogenic bilateral inguinal lymph nodes Plan Acute on chronic diastolic congestive heart failure Chest pain rule out ACS Elevated D-dimer Continue IV diuresis with Lasix-nephrology and cardiology following Troponin trended flat, perfusion scan with very low probability of PE Negative for DVT HALLE LE Heparin drip discontinued 12/17 Continue home medications, aspirin Stress test +12/19, plan for heart catheterization 12/19 Lower extremity edema improving, less chest pain/dyspnea/orthopnea Acute kidney injury Possibly CRS Continue with diuresis, Renal ultrasound unremarkable Nephrology following Giving gentle IV fluids anticipation of heart catheterization Monitor renal function closely Anemia of chronic disease/Iron deficiency anemia Monitor CBC will require iron supplementation Hypertension Continue home medications as appropriate, hold MYA/ARB given NÉSTOR Diabetes mellitus type [id number] ACHS Accu-Chek, sliding scale insulin Echogenic bilateral inguinal lymph nodes Repeat ultrasound as outpatient in 3 months Likely reactive VTE: Subcu heparin Code: Full Dispo: 48 to 72 hours Time Spent Managing Pts Care (In Minutes): 35
[2023-12-20] MEDS: NA CHLORIDE 0.9% 500 ML ONE (13:40)
--- NOTE | 2023-12-20 16:19 | PN ---
Date of Progress Note: 12/20/2023 Subjective: The patient was admitted to the hospital with acute kidney injury secondary to cardioren al with nephrotic range of proteinuria. Obstructive uropathy has been ruled out. The patient was st arted on diuresis today. Kidney function has been declined. The patient is still on room air. Physical Examination: Vital Signs: Blood pressure 141/68, pulse of 81, afebrile. The patient had good urine output. The patient lost almost 5 pounds in the last 3 days. Chest: Clear to auscultation. Heart: S1, S2. Regular. Abdomen: Soft, morbidly obese. Could not appreciate any organomegaly. Extremities: Trace edema venous stasis change. Neurologic: Alert. No focality. Laboratory Data: Hemoglobin 7.3. Sodium 138, potassium 4.7, bicarb 24, BUN 53, creatinine today jum ped to 3.2. GFR 21. Calcium 7.8. Phosphorus 4.6. Iron saturation 12, ferritin of 75. Albumin 2.1 . Corrected calcium is 9.4. Current Medications: The patient is on include: 1.Aspirin. 2.Albuterol. 3.Amlodipine 10 mg. 4.Atorvastatin. 5.Carvedilol 12.5. 6.Nitroglycerin. 7.Hydralazine 100 t.i.d. 8.Lasix 80 b.i.d. Assessment And Plan: 1.Acute kidney injury secondary to cardiorenal, currently worsening, possibly secondary to overdiure sis. I am going to hold the Lasix for the next 24-48 hours and we will monitor the patient recovery. 2.Hypertension, controlled, optimal. Continue current treatment. 3.Nephrotic range proteinuria secondary to diabetes nephropathy, serum protein electrophoresis, and serology is still pending. I am going to be hesitant with current kidney function to add any MYA inh ibitor or ARB. 4.Hyperkalemia has been resolved. 5.Wdh-DA-fszgaofoz myocardial infarction. Positive stress test. We will follow up with Cardiology. In case if the patient is going to need cardiac cath, we will need to start hydration. 6.Iron deficiency anemia. We will start the patient on IV iron. 7.Secondary hyperparathyroidism. Calcium, phosphorus, and PTH on the goal. 8.Congestive heart failure, currently normal volume. I am going to hold the Lasix as above. Time spent examining the patient [id number], reviewing data, lab and radiology, placing order, disc ussing the case with the patient, discussing the case with the count team member including hospitalist and nursing staff more than 35 minutes. BARRIE Voice ID: [id number] Report ID: [id number]
[2023-12-20] MEDS ORDERED: HEPA 1000U/500MLS 2,000 UNIT/1,000 ML BAG IV ONE (17:27)
[2023-12-20] MEDS ORDERED: HEPARIN 5000 UNIT/ML 1 ML VIAL ONE (17:28)
[2023-12-20] MEDS ORDERED: LIDOCAINE 1% 20 ML MDV ONE (17:28)
[2023-12-20] MEDS ORDERED: HEPARIN 10,000 UNIT/10 ML VIAL IV ONE (17:28)
[2023-12-20] MEDS ORDERED: MIDAZOLAM HCL 2 MG/2 ML INJ ONE (17:29)
[2023-12-20] MEDS ORDERED: FENTANYL CITR 100 MCG/2 ML ONE (17:29)
[2023-12-20] MEDS ORDERED: VERAPAMIL HCL 10 MG/4 ML VIAL IV ONE (17:29)
[2023-12-20] MEDS ORDERED: HYDRALAZINE HCL 20 MG/ML VIAL ONE (18:09)
--- NOTE | 2023-12-20 19:55 | OP ---
Date of Procedure: 12/20/2023 Surgeon: MAGNUS HIGH Procedures Performed: 1.Selective coronary angiogram. 2.Left heart catheterization. 3.Right heart catheterization. Indication: 1.New-onset acute congestive heart failure. 2.Chest pain with abnormal stress test. Access: 1.Right femoral artery 6-[place] closed with 6-[place] Angio-Seal. 2.Right femoral vein 7-[place] closed with manual pressure. Complications: None. Bleeding: Less than 50 mL. Anesthesia: Total sedation time was 50 minutes. Used fentanyl and Versed. Description Of Procedure: After risks, benefits, and alternatives were explained, patient agreed to procedure and signed informed consent. The patient was brought into the cardiac catheter[facility], prepped and draped in usual sterile fashion. Then, I accessed right femoral artery using [place] ropuncture kit, ultrasound guidance, fluoroscopy, placed 6-[place] sheath, accessed right fem oral vein using micropuncture kit and ultrasound guidance, placed a 7-[place] sheath and I to ok a balloon-tipped 7-[place] catheter through the venous access into the right atrium, right malou tricle, pulmonary artery and wedge, obtained waveform and pressure and then obtained thermodilutional cardiac output and then removed the [place]. I then took a 6-[place] JL4 catheter through the arterial access into the aortic root over a J-wire, engaged the left main, took standard views, then exchanged for a 6-[place] JR4 catheter, engaged the RCA, took standard views and over the wire, the aortic valv e was crossed, measured the LVEDP. Pullback did not record any gradient. Then I removed the cathete r and the sheath, placed a 6-[place] Angio-Seal for closure with good hemostasis and removed the venou s sheath and manual pressure was applied for closure with good hemostasis. Findings: 1.Coronary angiogram: a.Left main, normal. b.LAD; proximal focal 40% stenosis but it is very large vessel. Diagonal branch is very large with diagonal 1 and with luminal irregularities. Rest of the LAD is with luminal irregularities. c.Left circumflex; large vessel and with luminal irregularities. d.RCA; moderate size with luminal irregularities. e.LVEDP was 28 mmHg and his left circum is the dominant circulation. 2.Right heart catheterization: RA pressure was 15. RV pressure was 65/9, mean of 18, PA pressure w as 68/27, mean of 41, and pulmonary wedge pressure was 28. The cardiac output average was 9.5 L/karina te. Conclusion: 1.Mild coronary artery disease, nonobstructive. 2.Severely elevated filling pressure due to heart failure. 3.Severe pulmonary hypertension . Recommendation: Aggressive diuresis and consult Nephrology for fluid management. Patient might requ ely dialysis down the road. Total contrast used was 25 mL only. SR/MODL Voice ID: [id number] Report ID: [id number]
[2023-12-20] MEDS: FUROSEMIDE 40 MG/4 ML VIAL IV SCH (20:23)
[2023-12-21 04:56] LABS: Hematocrit 22.9 % (39.6-49.0); Hemoglobin 7.8 g/dL (13.6-17.9); MCH 32.3 pg (27.0-35.0); MCHC 34.1 g/dL (32.0-36.0); MCV 94.7 fL (80-100); MPV 9.8 fL (7.6-11.3); Platelets 233 thou/uL (152-406); RBC Red Blood Cell Count 2.42 M/uL (4.33-5.43); Red Cell Distribution Width 14.2 % (12.1-15.2)
[2023-12-21 05:22] LABS: Albumin 2.1 g/dL (3.4-5.0); Anion Gap 9.5 mEq/L (5.0-15.0); Phosphorus 4.6 mg/dL (2.5-4.9); Potassium 4.5 mEq/L (3.5-5.1)
--- NOTE | 2023-12-21 06:52 | TREADPHA ---
DX: CHEST PAIN Date of Study: 12/20/2023 Ht: 5' 4 " Wt: 225 lb 0 oz Consulting Physician: GREGG MEDICATIONS: TYLENOL, PROVENTIL, NORVASC, ASPIRIN, LIPITOR, COREG, CATAPRES, LASIX, HEPARIN, APRESOLINE, NOVOLIN-R, MORPHINE, NITROSTAT, ZOFRAN HISTORY: DIABETES MELLITUS, HYPERTENSION, DYSLIPIDEMIA PHYSICIAL EXAMINATION: RESTING B.P.: 162/79 RESTING H.R.: 75 RESTING EKG: SINUS RHYTHM PROTOCOL: PHARMACOLOGIC EXERCISE TIME: 3:30 B.P. AT PEAK STRESS: 151/64 IMPRESSION: LEXISCAN STRESS TEST PERFORMED ORDERED. CARDIOLITE INJECTED PER PROTOCOL (SEE NUCLEAR MEDICINE REPORT). NO SUPRAVENTRICULAR TACHYCARDIA, VENTRICULAR TACHYCARDIA, NO ARRHYTHMIA NOTED. NO CHEST PAIN, NO SHORTNESS OF BREATH. PATIENT COMPLAINS OF HEADACHE. NO OTHER CONCERNS.
[2023-12-21 10:22] LABS: Complement C3 116 mg/dL (82-185)
--- NOTE | 2023-12-21 12:30 | P.PN ---
Date of Service: 12/21/23 Subjective: Feeling better today, breathing easier Denies chest pain currently Still with significant lower extremity edema ROS: 10 point ROS as noted above, otherwise negative Physical exam GEN: Alert, oriented, NAD HEENT: Normal conjunctiva, sclera anicteric CV: Regular rate and rhythm, 2+ edema lower extremities bilaterally Pulm: Nonlabored respirations on room air ABD: Soft, nontender, nondistended MSK: No joint tenderness Integumentary: No rashes Neuro: Normal speech, normal affect Vitals reviewed Problem List Acute on chronic diastolic congestive heart failure Chest pain rule out ACS Elevated D-dimer Acute kidney injury Anemia of chronic disease/Iron deficiency anemia Hypertension Diabetes mellitus type [id number] Echogenic bilateral inguinal lymph nodes Plan Acute on chronic diastolic congestive heart failure Chest pain rule out ACS Elevated D-dimer Troponin trended flat, perfusion scan with very low probability of PE Negative for DVT HALLE LE Heparin drip discontinued 12/17 Continue home medications, aspirin Lower extremity edema improving, less chest pain/dyspnea/orthopnea Heart cath performed 12/19 Mild coronary artery disease, nonobstructive Severely elevated filling pressure due to heart failure Severe pulmonary hypertension Continue aggressive diuresis-continue to monitor renal function daily Acute kidney injury Possibly CRS Continue with diuresis, Renal ultrasound unremarkable Nephrology following Given gentle IV fluids in anticipation of heart catheterization Nephrology managing Anemia of chronic disease/Iron deficiency anemia Monitor CBC On IV iron monitor CBC daily Hypertension Continue home medications as appropriate, hold MYA/ARB given NÉSTOR Diabetes mellitus type [id number] ACHS Accu-Chek, sliding scale insulin Echogenic bilateral inguinal lymph nodes Repeat ultrasound as outpatient in 3 months Likely reactive VTE: Subcu heparin Code: Full Dispo: 48 to 72 hours Time Spent Managing Pts Care (In Minutes): 35
[2023-12-21 17:15] LABS: Anti-Double Strand DNA Antibod <1 IU/mL (<=4)
--- NOTE | 2023-12-21 17:41 | EKG ---
Test Date: 2023-12-17 Test Time: 12:44:12 Drill Punch Operator: MARLENE MEASUREMENT RESULTS: Intervals: Rate: 86 ND: 166 QRSD: 94 QT: 362 QTc: 433 Derwood: P: 44 ND: 166 QRS: 26 T: -1 INTERPRETIVE STATEMENTS: Normal sinus rhythm Normal ECG Compared to ECG 01/06/2023 15:30:47 T-wave abnormality no longer present Electronically Signed On 12-21-23 17:28:21 CDT by Marino Valencia
--- NOTE | 2023-12-21 21:10 | PN ---
Date of Progress Note: 12/21/2023 Subjective: Seen by bedside. No chest pain. He is status post coronary angiogram yesterday. No si gnificant coronary artery disease. He has severe systolic heart failure with significantly elevated filling pressures. He is feeling better today. No significant shortness of breath, but he has signi ficant lower extremity edema. No chest pain. Has orthopnea. No nausea, vomiting, diarrhea. All ot her systems reviewed are negative. [ Physical Examination: Vital signs: Reviewed. Head and Neck: Pupils are equal, reactive to light. Intact eye movements. Positive JVD. No cervic al nodes. Neck is supple. Thyroid is not enlarged. Lungs: Decreased breathing sounds with faint crackles in the bases. No accessory muscle use or musc le retraction. Heart: Irregular. No extra sounds. Abdomen: Soft, nontender. Bowel sounds positive. No organomegaly. No masses or hernia. No rigidi ty or rebound. Extremities: No clubbing, cyanosis. Intact pulses. There is significant edema in lower extremity, 2 to 3+. Skin: No rash noted. Neurologic: Alert, awake, oriented x3. No acute focal deficits appreciated. Lymph Nodes: No cervical lymphadenopathy. Investigations: BUN 50, creatinine 3.0 and hemoglobin is 7.8. Assessment And Plan: 1.Acute systolic heart failure. No significant coronary artery disease. Has mild coronary artery d isease only, does not explain the weakness of his heart function. Recommend continue carvedilol and continue IV diuresis. Recommend Lasix 80 mg q.8 hours and if he does not move the fluids very well, then I recommend to add metolazone 5 mg on daily basis and carefully monitor BUN, creatinine, electro lytes. If his kidney function worsens, he might require dialysis. He understands that and Nephrolog y is on board. 2.Coronary artery disease. It is very mild. Recommend baby aspirin 81 mg and Lipitor 40 mg at [facility]. 3.Dyslipidemia. Continue Lipitor. 4.Severe pulmonary hypertension due to congestive heart failure, it is all venous. The patient need s aggressive diuresis. 5.Chronic kidney disease with acute exacerbation. His creatinine should improve with further diures is. SR/MODL Voice ID: [id number] Report ID: [id number]
--- NOTE | 2023-12-22 02:52 | PN ---
Date of Progress Note: 12/21/2023 Chief Complaint: Acute kidney injury secondary to cardiorenal syndrome. Objective: The patient has underlying chronic kidney disease with nephrotic range proteinuria, obstr uctive uropathy was ruled out. Patient is on diuretics. He denies chest pain, palpitations, syncope . Objective: Lungs: Diminished breath sounds. Heart: S1, S2. Abdomen: Soft. Extremities: Edema present in both legs. Impression And Plan: 1.Acute kidney injury secondary to cardiorenal syndrome. The patient will resume Lasix. Continue t o monitor renal function closely. 2.Hypertension, blood pressure improved. Continue current medication. 3.Nephrotic range proteinuria secondary to diabetic nephropathy, serum electrophoresis and _ serology test pending. Monitor blood pressure. Consider MYA inhibitor or angiotensin-receptor blo cker for proteinuria when renal function stabilizes. ESTELA/MELISSA Voice ID: [id number] Report ID: [id number]
[2023-12-22 07:24] LABS: Hematocrit 24.8 % (39.6-49.0); Hemoglobin 8.4 g/dL (13.6-17.9); MCH 31.9 pg (27.0-35.0); MCHC 33.8 g/dL (32.0-36.0); MCV 94.4 fL (80-100); MPV 9.6 fL (7.6-11.3); Platelets 231 thou/uL (152-406); RBC Red Blood Cell Count 2.63 M/uL (4.33-5.43); Red Cell Distribution Width 14.1 % (12.1-15.2)
[2023-12-22 07:37] LABS: Albumin 2.4 g/dL (3.4-5.0); Anion Gap 9.3 mEq/L (5.0-15.0); Phosphorus 4.5 mg/dL (2.5-4.9); Potassium 4.3 mEq/L (3.5-5.1)
--- NOTE | 2023-12-22 11:21 | P.PN ---
Date of Service: 12/22/23 Subjective: Slowly improving Was able to take a shower today Legs less swollen ROS: 10 point ROS as noted above, otherwise negative Physical exam GEN: Alert, oriented, NAD HEENT: Normal conjunctiva, sclera anicteric CV: Regular rate and rhythm, 2+ edema lower extremities bilaterally Pulm: Nonlabored respirations on room air ABD: Soft, nontender, nondistended MSK: No joint tenderness Integumentary: No rashes Neuro: Normal speech, normal affect Vitals reviewed Problem List Acute on chronic systolic congestive heart failure Chest pain rule out ACS Elevated D-dimer Acute kidney injury Anemia of chronic disease/Iron deficiency anemia Hypertension Diabetes mellitus type [id number] Echogenic bilateral inguinal lymph nodes Plan Acute on chronic systolic congestive heart failure Chest pain rule out ACS Elevated D-dimer Troponin trended flat, perfusion scan with very low probability of PE Negative for DVT HALLE LE Heparin drip discontinued 12/17 Continue home medications, aspirin Lower extremity edema improving, less chest pain/dyspnea/orthopnea Heart cath performed 12/19 Mild coronary artery disease, nonobstructive Severely elevated filling pressure due to heart failure Severe pulmonary hypertension Continue aggressive diuresis-continue to monitor renal function daily Cardiology and nephrology following Acute kidney injury Possibly CRS Continue with diuresis, Renal ultrasound unremarkable Nephrology managing Anemia of chronic disease/Iron deficiency anemia Monitor CBC On IV iron monitor CBC daily Hypertension Continue home medications as appropriate, hold MYA/ARB given NÉSTOR Diabetes mellitus type [id number] ACHS Accu-Chek, sliding scale insulin Echogenic bilateral inguinal lymph nodes Repeat ultrasound as outpatient in 3 months Likely reactive VTE: Subcu heparin Code: Full Dispo: 48 to 72 hours Time Spent Managing Pts Care (In Minutes): 35
[2023-12-22 13:32] LABS: C-ANCA Anti-Proteinase 3 <1.0 AI (<1.0); P-ANCA Anti-Myeloperoxidase Ab <1.0 AI (<1.0)
--- NOTE | 2023-12-22 20:46 | P.PN ---
Subjective Date of Service: 12/22/23 Chief Complaint: chest pain r/o ACS Subjective: No new changes Physical Examination - Vital Signs Temperature: 97.4 F Blood Pressure: 135/65 Pulse: 70 Respirations: 20 Pulse Ox (%): 96 - Physical Exam General: Other (appears as his stated age) HEENT: Atraumatic, Normocephalic Neck: Supple Respiratory: Other (symmetric chest expansion) Cardiovascular: No rubs, No murmurs Gastrointestinal: Soft and benign, No rebound, No guarding Assessment And Plan - Plan 1. Acute kidney injury secondary to cardiorenal syndrome. Cont lasix. liberal by mouth fluid intake. 2. Hypertension, blood pressure improved. Continue current med regimen. 3. Acute on chronic systolic HF. Cont lasix. Low Na diet < 2g/d. Do not limit by mouth fluid intake unless he develops hyponatremia < 130 meq/L. 4. Nephrotic range proteinuria likely 2/2 secondary to diabetic nephropathy. BP control, glycemic control, low Na diet, statin. 5. Anemia. Monitor CBC. 6. DM2. Mngt per primary team.
[2023-12-23 07:17] LABS: Hematocrit 24.9 % (39.6-49.0); Hemoglobin 8.5 g/dL (13.6-17.9); MCHC 34.1 g/dL (32.0-36.0); MPV 9.8 fL (7.6-11.3); Platelets 254 thou/uL (152-406); RBC Red Blood Cell Count 2.65 M/uL (4.33-5.43); Red Cell Distribution Width 13.9 % (12.1-15.2)
[2023-12-23 07:28] LABS: Albumin 2.5 g/dL (3.4-5.0); Anion Gap 14.1 mEq/L (5.0-15.0); Phosphorus 4.8 mg/dL (2.5-4.9); Potassium 4.1 mEq/L (3.5-5.1)
[2023-12-23 09:56] LABS: Abnormal Protein Band 1 REPORT; Albumin, (SPE) 2.5 g/dL (3.8-4.8); Alpha-1-Globulins 0.4 g/dL (0.2-0.3); Beta 1 Globulin 0.4 g/dL (0.4-0.6); Gamma Globulins 0.8 g/dL (0.8-1.7); INTERPRETATION REPORT; Total Protein 5.4 g/dL (6.1-8.1)
--- NOTE | 2023-12-23 11:04 | P.PN ---
Date of Service: 12/23/23 Subjective: Feeling well today Legs less swollen breathing easier ROS: 10 point ROS as noted above, otherwise negative Physical exam GEN: Alert, oriented, NAD HEENT: Normal conjunctiva, sclera anicteric CV: Regular rate and rhythm, 2+ edema lower extremities bilaterally Pulm: Nonlabored respirations on room air ABD: Soft, nontender, nondistended MSK: No joint tenderness Integumentary: No rashes Neuro: Normal speech, normal affect Vitals reviewed Problem List Acute on chronic systolic congestive heart failure Chest pain rule out ACS Elevated D-dimer Acute kidney injury Anemia of chronic disease/Iron deficiency anemia Hypertension Diabetes mellitus type [id number]-[id number] Echogenic bilateral inguinal lymph nodes Plan Acute on chronic systolic congestive heart failure Chest pain rule out ACS Elevated D-dimer Troponin trended flat, perfusion scan with very low probability of PE Negative for DVT HALLE LE Heparin drip discontinued 12/17 Continue home medications, aspirin Lower extremity edema improving, less chest pain/dyspnea/orthopnea Heart cath performed 12/19 Mild coronary artery disease, nonobstructive Severely elevated filling pressure due to heart failure Severe pulmonary hypertension Continue aggressive diuresis-continue to monitor renal function daily Cardiology and nephrology following lasix reduced from 80mg IV tid to 40mg IV tid 12/22 Await further recs from cardiology/nephrology Acute kidney injury Creatinine steady around 3 no significant improvement Continue diuresis nephrology following Anemia of chronic disease/Iron deficiency anemia Monitor CBC On IV iron monitor CBC daily Hypertension Continue home medications as appropriate, hold MYA/ARB given NÉSTOR Diabetes mellitus type [id number]-[id number] ACHS Accu-Chek, sliding scale insulin Echogenic bilateral inguinal lymph nodes Repeat ultrasound as outpatient in 3 months Likely reactive VTE: Subcu heparin Code: Full Dispo: 48 to 72 hours Time Spent Managing Pts Care (In Minutes): 35
--- NOTE | 2023-12-23 11:34 | RAD REPORT ---
EXAM DESCRIPTION: RADChest Single View12/23/2023 10:41 am CLINICAL HISTORY: CHF COMPARISON: Chest Single View dated 12/17/2023; Chest Single View dated 01/06/2023; Chest Single View d ated 11/23/2021; Chest Single View dated 11/22/2021 TECHNIQUE: Portable AP view of the chest. FINDINGS: The lungs are clear. No pneumothorax or effusion. The cardiomediastinal contours are unre markable. IMPRESSION: No acute cardiopulmonary process.
[2023-12-23] MEDS: FUROSEMIDE 40 MG/4 ML VIAL IV SCH (14:00)
[2023-12-23 14:22] LABS: 1,25 Dihydroxy Vitamin D3 9 pg/mL; Vitamin D 1,25-Dihydroxy Total 9 pg/mL (18-72); Vitamin D,1,25-OH2, D2 <8 pg/mL
--- NOTE | 2023-12-23 16:05 | PN ---
Date of Progress Note: 12/23/2023 Subjective: Seen by bedside. He is doing better, but still has significant lower extremity edema an d dyspnea on exertion. No chest pain. Review of Systems: No chest pain. Positive shortness of breath. No exertion, lower extremity edema. Mild orthopnea. No nausea, vomiting, diarrhea. No abdominal pain. No dysuria, polyuria, or urinary urgency. All ot her systems reviewed are negative. Physical Examination: Vital signs: Reviewed. Head and Neck: Pupils are equal, reactive to light. Intact eye movements. No JVD. No cervical lym phadenopathy. Neck is supple. Thyroid is not enlarged. Lungs: Decreased breathing sounds bilaterally. No accessory muscle use or muscle retraction. Heart: Regular rate and rhythm. No extra sounds. Abdomen: Soft, nontender. Bowel sounds positive. No organomegaly. No masses or hernia. No rigidi ty or rebound. Extremities: No edema, clubbing, cyanosis. Intact pulses. Skin: No rash noted. Neurologic: Alert, awake, oriented x3. No acute focal deficits appreciated. Investigations: BUN 51, creatinine 3.1, and hemoglobin is 8.5. Assessment/recommendation: 1.Fhdnr-ag-ijkrsza diastolic heart failure exacerbation. Ejection fraction is normal, per recent ec ho and has mild coronary artery disease. I recommend to switch his Lasix to oral 80 mg twice a day a nd monitor BUN, creatinine, electrolytes, and needs better blood pressure control, which seems to hav e been established by now. 2.Hypertension. Blood pressure is much better. Continue current management. 3.Dyslipidemia. Continue statin. 4.Coronary artery disease that is mild. Continue Lipitor and baby aspirin 81 mg daily. 5.Advanced kidney failure, probably due to combination of blood pressure not being controlled and di abetes and he is being followed by Nephrology. SR/MODL Voice ID: [id number] Report ID: [id number]
[2023-12-23] MEDS: FUROSEMIDE 40 MG TABLET PO SCH (16:33)
--- NOTE | 2023-12-23 20:48 | P.PN ---
Subjective Date of Service: 12/23/23 Chief Complaint: chest pain r/o ACS Subjective: No new changes Physical Examination - Vital Signs Temperature: 97.1 F Blood Pressure: 141/71 Pulse: 68 Respirations: 18 Pulse Ox (%): 95 - Physical Exam General: Other (appears his stated age) HEENT: Atraumatic, Normocephalic Neck: Supple Respiratory: Other (symmetric chest expansion) Cardiovascular: No rubs, No murmurs Gastrointestinal: Soft and benign, No guarding Musculoskeletal: No clubbing Integumentary: No warmth Neurological: Normal tone Urinary: Other (no bladder distention) External genitalia: Deferred Rectal: Deferred Assessment And Plan - Plan 1. Acute kidney injury secondary to cardiorenal syndrome. SCr plateaued at 3.1- 3.2. Cont lasix. Noonan by mouth fluid intake. 2. Hypertension, blood pressure improved. Continue current med regimen. 3. Acute on chronic systolic HF. Cont lasix. Low Na diet < 2g/d. Do not limit by mouth fluid intake unless he develops hyponatremia < 130 meq/L. 4. Nephrotic range proteinuria likely 2/2 secondary to diabetic nephropathy. BP control, glycemic control, low Na diet, statin. 5. Anemia. Monitor CBC. 6. DM2. Mngt per primary team.
[2023-12-24 04:12] LABS: Hematocrit 22.1 % (39.6-49.0); Hemoglobin 7.6 g/dL (13.6-17.9); MCH 32.2 pg (27.0-35.0); MCHC 34.3 g/dL (32.0-36.0); MCV 93.9 fL (80-100); Platelets 219 thou/uL (152-406); RBC Red Blood Cell Count 2.36 M/uL (4.33-5.43); Red Cell Distribution Width 14.2 % (12.1-15.2)
[2023-12-24 04:48] LABS: Albumin 2.3 g/dL (3.4-5.0); Anion Gap 10.2 mEq/L (5.0-15.0); Phosphorus 4.9 mg/dL (2.5-4.9); Potassium 4.2 mEq/L (3.5-5.1)
--- NOTE | 2023-12-24 09:05 | P.PN ---
Date of Service: 12/24/23 Subjective: Doing well today Looking forward to discharge in the next 1-2 days ROS: 10 point ROS as noted above, otherwise negative Physical exam GEN: Alert, oriented, NAD HEENT: Normal conjunctiva, sclera anicteric CV: Regular rate and rhythm, 2+ edema lower extremities bilaterally Pulm: Nonlabored respirations on room air ABD: Soft, nontender, nondistended MSK: No joint tenderness Integumentary: No rashes Neuro: Normal speech, normal affect Vitals reviewed Problem List Acute on chronic diastolic congestive heart failure Chest pain rule out ACS Elevated D-dimer Acute kidney injury Anemia of chronic disease/Iron deficiency anemia Hypertension Diabetes mellitus type [id number]-[id number] Echogenic bilateral inguinal lymph nodes Plan Acute on chronic diastolic congestive heart failure Chest pain rule out ACS Elevated D-dimer Troponin trended flat, perfusion scan with very low probability of PE Negative for DVT HALLE LE Heparin drip discontinued 12/17 Continue home medications, aspirin Lower extremity edema improving, less chest pain/dyspnea/orthopnea Heart cath performed 12/19 Mild coronary artery disease, nonobstructive Severely elevated filling pressure due to heart failure Severe pulmonary hypertension Cardiology and nephrology following Lasix reduced to 80mg po bid 12/22 evening Cr trended up AM 12/23 Await further recs from cardiology/nephrology Cardiology OK with DC Acute kidney injury Creatinine increased to 3.5 no significant improvement Continue diuresis with oral lasix nephrology following Awaiting recs from nephrology-possible DC vs repeat chemistry in AM to ensure stability in CR Anemia of chronic disease/Iron deficiency anemia Monitor CBC On IV iron monitor CBC daily Hypertension Continue home medications as appropriate, hold MYA/ARB given NÉSTOR Diabetes mellitus type [id number] ACHS Accu-Chek, sliding scale insulin Echogenic bilateral inguinal lymph nodes Repeat ultrasound as outpatient in 3 months Likely reactive VTE: Subcu heparin Code: Full Dispo: 24 to 48 hours Time Spent Managing Pts Care (In Minutes): 35
[2023-12-24 15:14] LABS: Hematocrit 23.9 % (39.6-49.0); Hemoglobin 8.2 g/dL (13.6-17.9); MCH 32.5 pg (27.0-35.0); MCHC 34.4 g/dL (32.0-36.0); MCV 94.3 fL (80-100); MPV 9.9 fL (7.6-11.3); Platelets 244 thou/uL (152-406); RBC Red Blood Cell Count 2.53 M/uL (4.33-5.43); Red Cell Distribution Width 14.1 % (12.1-15.2)
[2023-12-24 16:27] LABS: Anti-Nuclear Antibody Screen Positive (Negative)
[2023-12-24 16:55] LABS: Anti-Nuclear Antibody Pattern REPORT
--- NOTE | 2023-12-25 01:59 | PN ---
Date of Progress Note: 12/24/2023 Chief Complaint: Chest pain, acute on chronic kidney injury. Subjective: The patient is admitted to the hospital because of acute coronary syndrome. He was comp laining of chest pain associated with shortness of breath, generalized weakness. The patient has his tory of hypertension. He was treated with IV Lasix for acute on chronic systolic congestive heart fa ilure. He responded to Lasix and shortness of breath alleviated. He denies PND or orthopnea. He key s multiple medical problems, including history of chronic kidney disease secondary to diabetes mellit us associated with proteinuria. Today, he is feeling better. He denies chest pain, palpitation, alt girish he is complaining of generalized weakness. He was found to have hemoglobin level declined, and is to have blood transfusion. Review of Systems: Denies chest pain, palpitation. Physical Examination: Lungs: Few rhonchi. No crackles. Heart: S1, S2. Abdomen: Soft. Extremities: Edema in both ankles. Impression And Plan: 1.Acute kidney injury secondary to cardiorenal syndrome, accelerated by diuretic, diuretic dose was reduced today. Continue Lasix 40 mg a day. Monitor fluid balance. Serum creatinine level has incre ased since yesterday per his prerenal azotemia with high BUN/creatinine ratio. The patient has advan lacie chronic kidney disease secondary to multiple etiologies, including diabetic kidney disease, hyper tensive kidney disease, and cardiorenal syndrome. The patient was found to have proteinuria, and he will require MYA inhibitor for proteinuria control in the setting of diabetic nephropathy. Monitor e lectrolytes. 2.Anemia. Monitor hemoglobin level. The patient will need blood transfusion. Re-evaluate iron sta tus and rule out gastrointestinal bleeding. Primary team is ordering the workup. 3.Diabetes mellitus. Continue insulin. EB/MODL Voice ID: [id number] Report ID: [id number]
[2023-12-25 04:17] LABS: Albumin 2.3 g/dL (3.4-5.0); Anion Gap 10.6 mEq/L (5.0-15.0); Phosphorus 5.4 mg/dL (2.5-4.9); Potassium 4.6 mEq/L (3.5-5.1)
--- NOTE | 2023-12-25 07:03 | P.PN ---
Date of Service: 12/25/23 Subjective: Sleeping well, breathing easily, on RA Daughter at bedside no new complaints ROS: 10 point ROS as noted above, otherwise negative Physical exam GEN: AAOx3, no acute distress HEENT: Normal conjunctiva, sclera anicteric CV: RRR, 2+ edema lower extremities bilaterally Pulm: Nonlabored respirations on room air ABD: Soft and benign on palpation, nontender, distended (obese) MSK: No joint tenderness Integumentary: No rashes Neuro: Normal speech, normal affect Vitals reviewed Problem List Acute on chronic diastolic congestive heart failure Chest pain rule out ACS Elevated D-dimer Acute kidney injury Anemia of chronic disease/Iron deficiency anemia Hypertension Diabetes mellitus type [id number]-xzvxpjuev Echogenic bilateral inguinal lymph nodes Plan Acute on chronic diastolic congestive heart failure Chest pain rule out ACS Elevated D-dimer Troponin trended flat, perfusion scan with very low probability of PE Negative for DVT HALLE LE Heparin drip discontinued 12/17 Continue home medications, aspirin Lower extremity edema improving Improved chest pain/dyspnea/orthopnea Heart cath performed 12/19 Mild coronary artery disease, nonobstructive Severely elevated filling pressure due to heart failure Severe pulmonary hypertension Cardiology and nephrology following Lasix reduced to 80mg po bid 12/22 evening Cr trended up AM 12/23 Await further recs from cardiology/nephrology Cardiology OK with DC Acute kidney injury Creatinine increased to 3.79 Continue diuresis with oral lasix nephrology following- recommend IVF and repeat chemistry in the AM. Anemia of chronic disease/Iron deficiency anemia Monitor CBC On IV iron monitor CBC daily Hypertension Continue home medications as appropriate, hold MYA/ARB given NÉSTOR Diabetes mellitus type [id number] ACHS Accu-Chek, sliding scale insulin A1C 7.9 Echogenic bilateral inguinal lymph nodes Repeat ultrasound as outpatient in 3 months Likely reactive VTE: Subcu heparin Code: Full Dispo: 24 to 48 hours
[2023-12-25] MEDS: FUROSEMIDE 40 MG TABLET PO SCH (09:12)
[2023-12-25] MEDS: NA CHLORIDE 0.9% 1,000 ML ONE (12:15)
[2023-12-25] MEDS: NA CHLORIDE 0.9% 1,000 ML IV SCH (12:16)
--- NOTE | 2023-12-25 15:46 | RAD REPORT ---
EXAM DESCRIPTION: US - Urinary Bladder - 12/25/2023 3:35 pm CLINICAL HISTORY: R/O urinary retention Pelvic pain COMPARISON: Vent Perfusion VQ Scan dated 12/18/2023 TECHNIQUE: Real-time sonographic evaluation of the urinary bladder with pre and postvoid volume arad urements was performed. FINDINGS: No evidence of bladder mass seen. No evidence of ureterocele. Prevoid bladder volume is 11 2 mL. Postvoid bladder volume 8 mL. IMPRESSION: No significant PVR.
--- NOTE | 2023-12-25 20:25 | PN ---
Date of Progress Note: 12/25/2023 Subjective: Seen by bedside. He is doing well. Lying flat. No orthopnea. Review of Systems: No chest pain, shortness of breath, orthopnea, or cough. No nausea, vomiting, or diarrhea. All othe r systems were reviewed, they were negative. Objective: Vital Signs: Reviewed. Head and Neck: Pupils were equal, reactive to light. Intact eye movements. No JVD. No cervical ly mphadenopathy. Neck is supple. Thyroid is not enlarged. Lungs: Clear to auscultation bilaterally. No rhonchi, wheezing, or crackles. No accessory muscle u se. Heart: Regular rate and rhythm. No extra sounds. Abdomen: Soft, nontender. Bowel sounds positive. No organomegaly. No masses or hernia. No rigidi ty or rebound. Extremities: Trace edema bilaterally. No clubbing or cyanosis. Intact pulses. Skin: No rash or nodule. Neurologic: Alert, awake, oriented x3. No acute focal deficits appreciated. Investigations: Creatinine 3.79, BUN is 66, hemoglobin is 8.2. Assessment And Recommendations: 1.Acute on chronic diastolic heart failure exacerbation. He appears to be euvolemic now, in fact thomas child on the dry side. Agree with holding the Lasix. Gentle hydration to be used with caution to avoi d getting him back into fluid overload condition. 2.Coronary artery disease. It is mild. Recommend statin and baby aspirin. Continue Lipitor. 3.Dyslipidemia. Continue Lipitor. 4.Hypertension. Blood pressure is much better now after proper diuresis. SR/MODL Voice ID: [id number] Report ID: [id number]
--- NOTE | 2023-12-25 23:37 | P.PN ---
Subjective Date of Service: 12/25/23 Chief Complaint: chest pain r/o ACS Subjective Pt with Hx of DM, progressive CKD, admitted with chest pain , S?p cardiac cathetrization Physical exam General: AAOx3, NAD CHEST; CTAB, no wheezes or rales HEART : RRR. Normal S1,2 no murmur or rub Abd: soft, Nt Ext: trace edema Skin : No rash #. Acute kidney injury secondary to cardiorenal syndrome. SCr plateaued at 3.1- 3.2. then increased to 3.8, if cr cont to increase then pt might require renal replacement therapy, will hold lasix and start albumin # CAD S/p cadiac catheterization #. Hypertension, blood pressure improved. Continue current med regimen. #. Acute on chronic systolic HF. lasix on hold #. Nephrotic range proteinuria likely 2/2 secondary to diabetic nephropathy. BP control, glycemic control, low Na diet, statin. #. Anemia. Monitor CBC. #. DM2. Mngt per primary team Physical Examination - Vital Signs Temperature: 97.1 F Blood Pressure: 144/69 Pulse: 60 Respirations: 21 Pulse Ox (%): 99
[2023-12-26] MEDS: ALBUMIN HUMAN 25% 100 ML IV SCH ×2 (00:41→09:00)
[2023-12-26 04:38] LABS: Albumin 2.5 g/dL (3.4-5.0); Anion Gap 11.2 mEq/L (5.0-15.0); Potassium 5.2 mEq/L (3.5-5.1)
[2023-12-26] MEDS: INSULIN REGULAR (HUMAN) 100 UNIT/ML SQ SCH (07:30)
[2023-12-26] MEDS: SODIUM ZIRCONIUM CYCLOSILICATE 10 GM/PKT PO ONE (07:30)
--- NOTE | 2023-12-26 07:33 | P.PN ---
Date of Service: 12/26/23 Subjective: Awake sitting on side of bed, ambulating independently and tolerating p.o. diet Still with elevated creatinine, nephrology managing. Nonlabored breathing. ROS: 10 point ROS as noted above, otherwise negative Physical exam GEN: Alert and oriented x 3 HEENT: Normal conjunctiva, sclera anicteric CV: Regular rate and rhythm, 1+ edema lower extremities bilaterally Pulm: Nonlabored respirations on room air, clear bilateral lung sounds ABD: Soft and benign on palpation, bowel sounds present, nontender, distended (obese) MSK: No joint tenderness Integumentary: No rashes Neuro: Normal speech, normal affect Vitals reviewed Problem List Acute on chronic diastolic congestive heart failure Chest pain rule out ACS Elevated D-dimer Acute kidney injury Anemia of chronic disease/Iron deficiency anemia Hypertension Diabetes mellitus type [id number] Echogenic bilateral inguinal lymph nodes Plan Acute on chronic diastolic congestive heart failure Chest pain rule out ACS Elevated D-dimer Troponin trended flat, perfusion scan with very low probability of PE Negative for DVT HALLE LE Heparin drip discontinued 12/17 Continue home medications, aspirin Lower extremity edema improving Improved chest pain/dyspnea/orthopnea Heart cath performed 12/19 Mild coronary artery disease, nonobstructive Severely elevated filling pressure due to heart failure Severe pulmonary hypertension Cardiology and nephrology following Lasix stopped Cr trended up AM 12/23 Appreciate further recs from cardiology/nephrology Cardiology OK with DC Acute kidney injury Hyperkalemia lokelma x1 Creatinine improved to 3.4 holding diuresis and started albumin OVN nephrology managing Anemia of chronic disease/Iron deficiency anemia Monitor CBC On IV iron monitor CBC daily Hypertension Continue home medications as appropriate, hold MYA/ARB given NÉSTOR Diabetes mellitus type [id number] ACHS Accu-Chek, sliding scale insulin-better control A1C 7.9 Echogenic bilateral inguinal lymph nodes Repeat ultrasound as outpatient in 3 months Likely reactive VTE: Subcu heparin Code: Full Dispo: 24 to 48 hours
--- NOTE | 2023-12-26 12:22 | PN ---
Date of Progress Note: 12/26/2023 Subjective: The patient was admitted with acute kidney injury secondary to cardiorenal. The patient 's kidney function did elevate after the cardiac cath, the patient being nonoliguric. Physical Examination: Vital Signs: Blood pressure 163/70, pulse of 75, afebrile. Chest: Clear to auscultation. Heart: S1, S2. Regular. Abdomen: Soft, nontender. Extremities: Venous stasis change. No edema. Neurologic: Alert. No focality. Laboratory Data: Hemoglobin 8.2. Sodium 136, potassium 5.2, bicarb 23, BUN 60, creatinine 3.4, GFR 20, calcium 8, phosphorus 4.5. Current Medications: The patient is on include: 1.Aspirin. 2.Albuterol. 3.IV iron. 4.Amlodipine. 5.Carvedilol 12.5. 6.Clonidine. 7.Hydralazine. 8.Nitroglycerin. 9.Lokelma. Assessment And Plan: 1.Acute kidney injury secondary to cardiorenal, superimposed with contrast-induced nephropathy. Cre atinine today plateaued. To improve the patient's normal volume, I am going to continue to hold diur esis and we will keep holding any MYA inhibitor or ARB. 2.Hypertension, not controlled. I am going to keep avoiding any MYA inhibitor or ARB. I will incre ase clonidine to t.i.d. 3.Nephrotic-range proteinuria secondary to diabetic nephropathy. Workup was done including serum pr otein electrophoresis, which was minimal M spike. Serology was only positive for SARAN with normal com plement mostly as I mentioned it is secondary to diabetes. We will monitor. 4.Hyperkalemia, plateaued off status post Lokelma. We will continue to monitor. 5.Coronary artery disease. Follow up with Cardiology. ISIDRO/MELISSA Voice ID: [id number] Report ID: [id number]
[2023-12-26] MEDS: cloNIDine HCL 0.1 MG TAB PO SCH (13:28)
--- NOTE | 2023-12-26 16:54 | P.PN ---
Subjective Date of Service: 12/26/23 Chief Complaint: chest pain r/o ACS Subjective: No new changes Review of Systems 10-point ROS is otherwise unremarkable Physical Examination - Vital Signs Temperature: 97.8 F Blood Pressure: 144/76 Pulse: 71 Respirations: 20 Pulse Ox (%): 95 - Physical Exam General: Alert, Oriented x3 HEENT: Atraumatic Neck: Supple Respiratory: Clear to auscultation bilaterally Cardiovascular: Normal S1 S2, Edema Gastrointestinal: Normal bowel sounds Assessment And Plan - Current Problems (Diagnosis) (1) Chest pain Current Visit: Yes Status: Acute Plan: patient had a normal coronary angiogram recently.. (2) SOB (shortness of breath) Current Visit: Yes Status: Acute Plan: Patient Lasix is on hold due to worsening kidney function after extensive diuresis, although patient still got +1 BLE please follow up on Nephrology recommendations. monitor input and output and electrolytes cloesly. (3) HTN (hypertension) Current Visit: Yes Status: Acute Plan: patient BP is better controlled, continue current medications.
[2023-12-27 03:39] LABS: Absolute Eosinophils 0.2 K/uL (0-0.5); Absolute Lymphocytes (CBC) 1.6 K/uL (0.7-4.9); Absolute Monocytes 0.8 K/uL (0.1-1.3); Absolute Neutrophil 4.2 K/uL (1.8-8.0); Basophils % 0.6 % (0-1.3); Hematocrit 22.5 % (39.6-49.0); Hemoglobin 7.5 g/dL (13.6-17.9); Lymphocytes % 23.4 % (15.3-44.8); MCH 31.5 pg (27.0-35.0); MCHC 33.2 g/dL (32.0-36.0); MCV 94.9 fL (80-100); MPV 10.4 fL (7.6-11.3); Monocytes % 11.9 % (3.3-12.3); Neutrophils % 61.1 % (41.7-73.7); Nucleated Red Blood Cells % 0.1 % (0-0); Platelets 212 thou/uL (152-406); RBC Red Blood Cell Count 2.37 M/uL (4.33-5.43); Red Cell Distribution Width 14.5 % (12.1-15.2)
[2023-12-27 03:59] LABS: Albumin 2.8 g/dL (3.4-5.0); Anion Gap 11.9 mEq/L (5.0-15.0); Phosphorus 5.2 mg/dL (2.5-4.9); Potassium 4.9 mEq/L (3.5-5.1)
[2023-12-27 04:50] VITALS: TEMP 98
[2023-12-27 09:01] VITALS: O2SAT 96
[2023-12-27 09:58] VITALS: BP 163/74
--- NOTE | 2023-12-27 12:13 | P.PN ---
Subjective Date of Service: 12/27/23 Chief Complaint: chest pain r/o ACS Subjective: No new changes Review of Systems 10-point ROS is otherwise unremarkable Physical Examination - Vital Signs Temperature: 98.0 F Blood Pressure: 163/74 Pulse: 73 Respirations: 18 Pulse Ox (%): 94 - Physical Exam General: Alert, Oriented x3 HEENT: Atraumatic Neck: Supple Respiratory: Clear to auscultation bilaterally Cardiovascular: Normal S1 S2, Edema Gastrointestinal: Normal bowel sounds Assessment And Plan - Current Problems (Diagnosis) (1) Chest pain Current Visit: Yes Status: Acute Plan: patient had a normal coronary angiogram recently.. (2) SOB (shortness of breath) Current Visit: Yes Status: Acute Plan: start patient on Lasix 40 mg daily on discharge please follow up on Nephrology recommendations. monitor input and output and electrolytes cloesly. (3) HTN (hypertension) Current Visit: Yes Status: Acute Plan: patient BP is better controlled, continue current medications.
--- NOTE | 2023-12-27 12:39 | P.DS ---
Admission Date: 12/18/23 Discharge Date: 12/29/23 Disposition: ROUTINE DISCHARGE Discharge Condition: FAIR Reason for Admission: chest pain r/o ACS Brief History of Present Illness: Diagnosis Acute on chronic diastolic congestive heart failure Chest pain rule out ACS Elevated D-dimer Acute kidney injury Anemia of chronic disease/Iron deficiency anemia Hypertension Diabetes mellitus type [id number] Echogenic bilateral inguinal lymph nodes HPI 12/17/23 Michelet Godinez is a 58 year old male with pmhx diabetes mellitus, Hypertensive disorder, who presents to the ED with complaining of chest pain, cough, and SOB. Daughter is at the bedside and is a good historian. She reports he finally decided to come to the ED now that he is having a more difficult time breathing. She also reports he has times of "filling up with fluid" and his stomach gets hard. He had an ECHO in 2021 showing a normal EF, MAC, mitral and tricuspid regurgitation. On evaluation, he is coughing, dyspneic, with 3+ pitting edema to BLE. He has chronic kidney disease, he missed his nephrology appointment. He sees Dr. Sharp. While in the ED, he was given lasix, morphine, and duonebs. Chest xray reports " Pulmonary vascular congestion. The lungs appear clear of acute infiltrate. The heart is mildly enlarged." Initial vitals: BP 165 / 74; Pulse 88; Resp 21; Temp 98.5(O); Pulse Ox 96% on R/A. Laboratory evaluation WBC 9, H&H 8.2/24.2, BUN/creatinine 49/3.02, GFR 23, alk phos 127, BNP 2886, troponin 29.2 Michelet will be admitted to hospitalist service for further evaluation and treatment for fluid volume overload secondary to CHF, chest pain r/o ACS, Dr. Valencia and Dr. Sharp consulted Hospital Course: Michelet Godinez is a pleasant 58 year old male with a past medical history significant for diabetes mellitus, Hypertensive disorder who was admitted to the [facility] on 12/17/23 for Acute on chronic diastolic congestive heart failure. Michelet Godinez presented to the ED on 12/17/2023 with chief complaint of difficulty breathing and feeling like he was filling up with fluid. An echocardiogram revealed Trace tricuspid regurgitation, ejection fraction 55 to 60%, grade 2 diastolic dysfunction. Nuclear medicine stress test reports "Reversible defect along the apical segments of the anterior and septal oconnor, suggesting areas ischemia adjacent to a small region of infarct at the apex and adjacent anteroseptal wall. Additional small region of infarct suggested along the mid aspect of the inferior wall. Mildly reduced left ventricular ejection fraction, 45%." Please follow-up with Dr. Cast for continued heart management. He has tolerated PO diet, lasix administration, urinating with out difficulty, ambulating independently, and hemodynamically stable for discharge. On 12/27/23, Michelet was seen on morning rounds and deemed medically stable for discharge. Michelet was discharged with instructions to schedule follow-up daniel ointments with PCP, Dr. Cast, and Dr. Sharp . Michelet was provided prescriptions for ASA, clonidine, coreg, and lasix. The patient and family members were given the opportunity to ask questions and reported no further questions. Furthermore, all questions were answered to the best of my ability. A copy of this discharge summary will be sent to the above providers to facilitate continuity of care. Today, I personally spent 50 minutes with Michelet and family, of which greater than 50% of the time was spent in patient education, counseling, and coordination of care as described above. Physical exam GEN: AAOx3, NAD, calm HEENT: Normal conjunctiva, sclera anicteric CV: S1S2 present, RRR, no murmur noted, 1+ edema lower extremities bilaterally Pulm: Nonlabored respirations on room air, clear bilateral lung sounds, symmetrical chest wall movement ABD: Soft and benign on palpation, nontender, distended (obese), bowel sounds present MSK: No joint tenderness Integumentary: No rashes Neuro: Normal speech, normal affect Vital Signs/Physical Exam: Temp Pulse Resp BP Pulse Ox 98.0 F 73 18 163/74 H 94 12/27/23 12:13 12/27/23 12:13 12/27/23 12:13 12/27/23 12:13 12/27/23 12:13 Laboratory Data at Discharge: WBC 6.80 thou/uL (4.3-10.9) 12/27/23 02:50 Hgb 7.5 g/dL (13.6-17.9) L 12/27/23 02:50 Hct 22.5 % (39.6-49.0) L 12/27/23 02:50 Plt Count 212 thou/uL (152-406) 12/27/23 02:50 PT 11.2 SECONDS (9.5-12.5) 12/17/23 14:20 INR 1.02 12/17/23 14:20 APTT 62.7 SECONDS (24.3-36.9) H 12/18/23 07:47 Sodium 135 mEq/L (136-145) L 12/27/23 02:50 Potassium 4.9 mEq/L (3.5-5.1) 12/27/23 02:50 BUN 64 mg/dL (7-18) H 12/27/23 02:50 Creatinine 3.57 mg/dL (0.70-1.30) H 12/27/23 02:50 Glucose 175 mg/dL (74-106) H 12/27/23 02:50 Uric Acid 6.6 mg/dL (3.5-7.2) 12/19/23 02:42 Phosphorus 5.2 mg/dL (2.5-4.9) H 12/27/23 02:50 Magnesium 2.2 mg/dL (1.6-2.4) 12/19/23 02:42 Total Bilirubin 0.1 mg/dL (0.2-1.0) L 12/17/23 14:20 AST 21 U/L (15-37) 12/17/23 14:20 ALT 25 U/L (16-61) 12/17/23 14:20 Alkaline Phosphatase 127 U/L (45-117) H 12/17/23 14:20 Triglycerides 114 mg/dL (<150) 12/18/23 07:47 Cholesterol 176 mg/dL (<200) 12/18/23 07:47 HDL Cholesterol 63 mg/dL (40-60) H 12/18/23 07:47 Cholesterol/HDL Ratio 2.79 12/18/23 07:47 Home Medications: Amlodipine [Norvasc*] 10 mg PO DAILY 11/21/21 Atorvastatin Calcium 20 mg PO DAILY 12/17/23 Empagliflozin [Jardiance] 10 mg PO DAILY 12/17/23 Benzonatate [Tessalon Perle*] 100 mg PO TIDP PRN 12/18/23 Hydralazine HCl 100 mg PO TID 12/18/23 Aspirin [Aspirin EC] 81 mg PO DAILY #30 tab 12/27/23 Furosemide [Lasix] 40 mg PO DAILY 30 Days #30 tablet 12/27/23 carvediloL [Coreg*] 12.5 mg PO BIDWM #60 tab 12/27/23 cloNIDine HCL [Catapres*] 0.1 mg PO TID #90 tab 12/27/23 New Medications: Aspirin [Aspirin EC] 81 mg PO DAILY #30 tab cloNIDine HCL [Catapres*] 0.1 mg PO TID #90 tab carvediloL [Coreg*] 12.5 mg PO BIDWM #60 tab Furosemide [Lasix] 40 mg PO DAILY 30 Days #30 tablet Physician Discharge Instructions: Michelet Godinez presented to the ED on 12/17/2023 with chief complaint of difficulty breathing and feeling like he was filling up with fluid. An echocardiogram showing Trace tricuspid regurgitation, ejection fraction 55 to 60%, grade 2 diastolic dysfunction. Nuclear medicine stress test reports "Reversible defect along the apical segments of the anterior and septal oconnor, suggesting areas ischemia adjacent to a small region of infarct at the apex and adjacent anteroseptal wall. Additional small region of infarct suggested along the mid aspect of the inferior wall. Mildly reduced left ventricular ejection fraction, 45%." Please follow-up with Dr. Cast for continued heart management. 1. Please call and schedule a follow-up appointment with your PCP in 3-5 days - Please follow-up with your PCP for medication refills/adjustments 2. Please call and schedule a follow-up appointment with Dr. Sharp in 2 weeks for kidney function 3. Please call and schedule follow-up appointment with Dr. Cast in one week for heart management 3. Continue renal diet 4. No activity restrictions 5. Return to ED if needed New medication Lasix 40 mg daily Clonidine 0.1 mg 3 times daily Aspirin 81 mg daily Coreg 12.5 twice daily Diet: Renal Activity: Ad cresencio Followup: Jessica Sharp MD [ACTIVE - CAN ADMIT] - (Within 2 weeks) Kyle Cast MD [ACTIVE - CAN ADMIT] - Jeremiah Monsalve DO [Primary Care Provider] - 1-2 Weeks
--- NOTE | 2023-12-27 13:55 | PN ---
Subjective: The patient was admitted to the hospital with the acute kidney injury secondary to prere nal contrast-induced nephropathy, cardiorenal. Patient had [id number] NH. The patient had car diac cath. Currently diuresis has been held. The patient is still on room air. The patient feeling better. Objective: Vital Signs: Blood pressure 163/74, pulse of 73, afebrile. Chest: Clear to auscultation. Heart: S1, S2. Systolic murmur. Abdomen: Soft, nontender. Extremity: Plus edema. Neurologic: Alert. No focality. Laboratory Data: Hemoglobin 7.5, sodium 135, potassium 4.9, bicarb 22, BUN 64, creatinine 3.5, GFR o f 19, calcium 7.9, phosphorus 5.2. Current Medications: The patient on, it includes: 1.Aspirin. 2.IV iron. 3.Heparin. 4.Amlodipine 10 mg. 5.Atorvastatin. 6.Carvedilol 12.5. 7.Clonidine 0.1 t.i.d. 8.Hydralazine 100 t.i.d. 9.Nitroglycerin. 10.Lokelma. 11.Insulin. Assessment And Plan: 1.Acute kidney injury multifactorial secondary to cardiorenal, superimposed with the contrast-induce d nephropathy, plateaued currently. Given the current cardiac function with ejection fraction of 45, I am going to go ahead and resume Lasix 40 mg daily. Patient cleared from Renal standpoint for disc harge planning. To follow up in the office in 2 to 3 weeks. 2.Hyponatremia secondary to cardiorenal, dilutional. We will resume Lasix. 3.Hyperkalemia. Continue Lokelma. We will resume Lasix. 4.Iron-deficiency anemia. Patient received IV iron. We will follow up. 5.Congestive heart failure, cfr-UE-hykjnwxke myocardial infarction. Discussed with Cardiology. We will resume Lasix. Patient needs follow up as an outpatient. 6.Diabetes. Okay to resume Jardiance. Hold the glipizide. ISIDRO/MELISSA Voice ID: [id number] Report ID: [id number]
[2023-12-28] MEDS ORDERED: FUROSEMIDE 40 MG TABLET PO SCH (09:00)
== END 2023-12-27 13:31 | disposition home or self-care (01) | DRG 280 ==
LOC: ER 13:29 → ERHOLD 16:51 → 2ND 18:47 → OBSVTOIN 12-18 06:18
PROVIDERS: ADMIT Internal Medicine; ATTEND Internal Medicine
PROC: 4A023N8 Measurement of Cardiac Sampling and Pressure, Bilateral, Percutaneous Approach (ICD-10-PCS; principal; 2023-12-20)
PROC: B2111ZZ Fluoroscopy of Multiple Coronary Arteries using Low Osmolar Contrast (ICD-10-PCS; 2023-12-20)
DX: I13.0 Hypertensive heart and chronic kidney disease with heart failure and stage 1 through stage 4 chronic kidney disease, or unspecified chronic kidney disease (principal); I50.33 Acute on chronic diastolic (congestive) heart failure; I21.4 Non-ST elevation (NSTEMI) myocardial infarction; N17.9 Acute kidney failure, unspecified; N25.81 Secondary hyperparathyroidism of renal origin; E87.1 Hypo-osmolality and hyponatremia; N18.30 Chronic kidney disease, stage 3 unspecified; E11.22 Type 2 diabetes mellitus with diabetic chronic kidney disease; E11.40 Type 2 diabetes mellitus with diabetic neuropathy, unspecified; D63.1 Anemia in chronic kidney disease; E87.5 Hyperkalemia; D50.9 Iron deficiency anemia, unspecified; E78.5 Hyperlipidemia, unspecified; I25.10 Atherosclerotic heart disease of native coronary artery without angina pectoris; Z79.02 Long term (current) use of antithrombotics/antiplatelets; Z79.82 Long term (current) use of aspirin; Z79.84 Long term (current) use of oral hypoglycemic drugs; Z79.899 Other long term (current) drug therapy; Z89.421 Acquired absence of other right toe(s); Z91.199 Patient's noncompliance with other medical treatment and regimen due to unspecified reason
CPT/HCPCS: 36415; 71045; 76770; 76857; 76937; 78452; 78582; 80048; 80061; 80069; 80076; 81001; 82550; 82570; 82607; 82652; 82728; 82947; 83036; 83520; 83540; 83735; 83880; 83970; 84100; 84156; 84165; 84439; 84443; 84466; 84484; 84550; 85025; 85027; 85044; 85379; 85610; 85730; 86021; 86038; 86160; 86225; 86430; 86803; 87811; 93005; 93017; 93306; 93460; 93970; 94010; 94640; 96374; 96375; 99285; A9500; A9540; C1893; G0378; J0360; J1644; J1815; J1940; J2001; J2250; J2785; J2916; J3010; J7030; J7040; J7050; J7613; J7644; P9047; Q9966

== ENCOUNTER 2024-06-05 17:56 | Observation (INO) | payer OTHER ==
--- OUTSIDE RECORDS SUMMARY | 2024-06-05 18:08 | XMS REPORT | Continuity of Care Document ---
Author Name Unknown Address [address] [facility] [address] [place] [address] [facility] thconnect Address [address] [facility] [place] [address] Care Team Providers Care American Board Certified Orthotist Name Role Phone Jensen Desmond OSBORNE Primary Care Physician MARQUES THOMAS Attending Clinician Unavailable MALACHI MICHELLE Attending Clinician Unava ilable LAB90 Attending Clinician Unavailable BEATA CHEN Attending Clinician Unav ailable CARLEE CARRILLO Attending Clinician UnavailQUINN Rubin Attending Clinician Unavail able JOAN STACY Attending Clinician Unavailable JENNIFER PRICE Attending Clinician UnavailFELIPA Osuna Attending Clinician Unavailable 39, HOLTER Attending Clinician Unavailable Jewel BORDEN, Rebecca Mott Attending Clinician [phone] JOAN FAGAN Attending Clinician Unavailhaile Novoa MD, Micah A Attending Clinician [phone] Denise KINSEY, Jaz Attending Clinician [phone] Gayle KINSEY, Gianluca Zamora Attending Clinician [phone] Joan Fagan MD Attending Clinician [phone] Diego Rogers DO Attending Clinician [phone] TRAVIS ASHTON Attending Clinician Unavailable Aurora Goins LVN Attending Clinician [phone] Gal HAYNES, K Stephanie Attending Clinician [phone] Gm De Los Santos MD Attending Clinician [phone] Chandler Villatoro MD Attending Clinician [phone] Travis GUSTAFSON, Nomi Nation Attending Clinician [phone] JOAN FAGAN Admitting Clinician Joan Ibarra MD Admitting Clinician [phone] Gm De Los Santos MD Admitting Clinician [phone] Payers Payer Name Policy Type Policy Number Effective Date Expirati on Date Source [employer] MP [facility] 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 ON 9 [id number] 2023 00:00:00 Problems Condition Name Condition Details Condition Category Status Onset Date Resolution Date Last Treatment Date Treating Clinician Comments Source Abnormal stress test Abnormal stress test Disease Active 01-02 00:00: 00 [facility] discharge follow-up Hospital discharge follow-up Disease Active - 00:00: 00 [facility] Chronic diastolic CHF (congestiv e heart failure) (multi HCC) Chronic diastolic CHF (congestiv e heart failure) (multi HCC) Disease Active 2- 00:00: 00 [facility] Other specified anemias Other specified anemias Disease Active 2- 00:00: 00 [facility] Type 2 diabetes 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, without long-term current use of insulin (multi HCC) Type 2 diabetes 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, without long-term current use of insulin (multi HCC) Disease Active 6-12 00:00: 00 [facility] Shortness of breath Shortness of breath Disease Active - 00:00: 00 [facility] DM type 2 with diabetic mixed hyperlipid emia (multi HCC) DM type 2 with diabetic mixed hyperlipid emia (multi HCC) Disease Active 12-06 00:00: 00 Sonia Seybold - Externa l Primary hypertensi on Primary hypertensi on Disease Active 12-06 00:00: 00 Sonia Orr - Externa l Chronic cough Chronic cough Disease Active 12-06 00:00: 00 Sonia Kirby - Externa l Edema, lower extremity Edema, lower extremity Disease Active 12-06 00:00: 00 [facility]onia Orr - Externa l Severe obesity (BMI 35.0-35.9 with comorbidit y) Severe obesity (BMI 35.0-35.9 with comorbidit y) Disease Active 12-06 00:00: 00 Sonia Kirby - Externa l Obesity (BMI 30-39.9) Obesity (BMI 30-39.9) Disease Active 07-04 00:00: 00 [facility] Cellulitis Cellulitis Disease Active 07-03 00:00: 00 [facility] Allergies, Adverse Reactions, Alerts Allergy Name Allergy Type Status Severity Reaction(s) Onset Date Inactive Date Treating Clinician Comments Source NO KNOWN ALLERGIE S Drug Class Active [facility] Social History Social Habit Start Date Stop Date Quantity Comments Source History SDOH Social Connections Get Together [facility] History SDOH Social Connections Zoroastrian [facility] History SDOH Social Connections Membership [facility] History SDOH Social Connections Meetings [facility] Gender identity Lorenza Orr - External Sexual orientation Wong Orr - External Alcoholic beverage intake 2024-05-19 00:00:00 2024-05-19 00:00:00 Current drinker of alcohol (finding) [facility] - External Alcohol intake 2024-01-02 00:00:00 2024-01-02 00:00:00 Current drinker of alcohol (finding) [facility]onia Orr - External History of Social function 2023-06-25 00:00:00 2023-06-25 00:00:00 Sonia Orr - External History SDOH Alcohol Frequency 2023-01-31 00:00:00 2023-01-31 00:00:00 5 [facility] History SDOH Alcohol Std Drinks 2023-01-31 00:00:00 2023-01-31 00:00:00 1 [facility] History SDOH Alcohol Binge 2023-01-31 00:00:00 2023-01-31 00:00:00 1 [facility] History SDOH Social Connections Phone 2023-01-31 00:00:00 2023-01-31 00:00:00 3 [facility] History SDOH Social Connections Living 2023-01-31 00:00:00 2023-01-31 00:00:00 3 [facility] History SDOH Financial 2023-01-31 00:00:00 2023-01-31 00:00:00 2 [facility] History SDOH Food Worry 2023-01-31 00:00:00 2023-01-31 00:00:00 3 [facility] History SDOH Food Scarcity 2023-01-31 00:00:00 2023-01-31 00:00:00 3 [facility] History SDOH Transport Med 2023-01-31 00:00:00 2023-01-31 00:00:00 2 [facility] History SDOH Transport Non-Med 2023-01-31 00:00:00 2023-01-31 00:00:00 2 [facility] History SDOH Housing Unable to Pay 2023-01-31 00:00:00 2023-01-31 00:00:00 1 [facility] History SDOH Housing Places Lived 2023-01-31 00:00:00 2023-01-31 00:00:00 1 [facility] History SDOH Housing Homeless Last Year 2023-01-31 00:00:00 2023-01-31 00:00:00 2 [facility] Exposure to SARS-CoV-2 (event) 2023-01-20 00:00:00 2023-01-30 18:08:00 Not sure [facility] Alcohol Comment 2022-12-06 00:00:00 2022-12-06 00:00:00 occasionally Sonia Orr - External Education 2022-12-06 00:00:00 2022-12-06 00:00:00 13 [facility] Orr - External Tobacco use and exposure 2021-07-03 00:00:00 2021-07-03 00:00:00 Smokeless tobacco non-user [facility] Sex assigned at 1965 00:00:00 1965 00:00:00 Sonai Hollingsworth Smoking Status Start Date Stop Date Source Never smoked tobacco [facility]onia Hollingsworth Medications Ordered Medication Name Filled Medication Name Start Date Stop Date Current Medication? Ordering Clinician Indication Dosage Frequency Signature (SIG) Comments Components Source Multiple Vitamins-Mi nerals (One-A-Day Mens 50+) oral Tablet 05-19 13:30: 40 Yes QD Take by mouth daily. [facility]onia [facility] hydrALAZINE HCl 100 MG oral Tablet 05-19 13:30: 40 Yes 100mg Q.[id number] 3D Take 1 tablet (100 mg total) by mouth 3 times daily. [facility] Multiple Vitamins-Mi nerals (One-A-Day Mens 50+) oral Tablet 03-20 15:41: 40 Yes Take by mouth daily. [facility] che[facility] hydrALAZINE HCl 100 MG oral Tablet 03-20 15:41: 40 Yes 100mg Take 1 tablet (100 mg total) by mouth 3 times daily. [facility] che[facility] glipiZIDE 5 MG oral Tablet 03-20 00:00: 00 Yes [id number] 3 5mg Take 1 tablet (5 mg total) by mouth in the morning and 1 tablet (5 mg total) in the evening. Take before meals. [facility]onia cheatham Atorvastati n Calcium 80 MG oral Tablet 20 00:00: 00 Yes [id number] 3 80mg QD Take 1 tablet (80 mg total) by mouth nightly. [facility] che[facility] Carvedilol 12.5 MG oral Tablet 02-21 00:00: 00 Yes 12.5mg Take 1 tablet (12.5 mg total) by mouth in the morning and 1 tablet (12.5 mg total) in the evening. Take with meals. [facility]onia che[facility] glipiZIDE 5 MG oral Tablet 02-21 00:00: 00 03-20 00:00 :00 No [id number] 3 5mg Take 1 tablet (5 mg total) by mouth daily (before a meal). [facility] Furosemide (Lasix) 40 MG oral Tablet 02-13 00:00: 00 Yes [id number] 40mg Q.5D Take 1 tablet (40 mg total) by mouth 2 times daily. [facility] Losartan Potassium 25 MG oral Tablet 02-13 00:00: 00 Yes [id number] 25mg QD Take 1 tablet (25 mg total) by mouth daily. [facility] Multiple Vitamins-Mi nerals (One-A-Day Mens 50+) oral Tablet 01-29 11:35: 35 Yes Take by mouth daily. [facility] Clonidine HCl (CATAPRES) 0.1 MG oral Tablet 01-29 11:35: 35 Yes .1mg Take 1 tablet (0.1 mg total) by mouth 3 times daily. [facility] hydrALAZINE HCl 100 MG oral Tablet 01-29 11:35: 35 Yes 100mg Take 1 tablet (100 mg total) by mouth 3 times daily. [facility] Furosemide (Lasix) 40 MG oral Tablet 01-29 00:00: 00 Yes [id number] 40mg Take 1 tablet (40 mg total) by mouth 2 times daily. [facility] Clonidine HCl (CATAPRES) 0.1 MG oral Tablet 01-29 00:00: 00 Yes .1mg Q.[id number] 3D Take 1 tablet (0.1 mg total) by mouth 3 times daily. [facility] Amlodipine Besylate 10 MG oral Tablet 01-29 00:00: 00 Yes [id number] 10mg QD Take 1 tablet (10 mg total) by mouth daily. [facility] Carvedilol 12.5 MG oral Tablet 01-28 00:00: 00 Yes 12.5mg Take 1 tablet (12.5 mg total) by mouth in the morning and 1 tablet (12.5 mg total) in the evening. Take with meals. [facility] Aspirin (Aspirin 81) 81 MG oral Chewable Tablet - 00:00: 00 Yes 81mg QD Take 1 tablet (81 mg total) by mouth daily. [facility] Empaglifloz in (Jardiance) 10 MG oral Tablet 4-05 00:00: 00 Yes [id number] 10mg QD Take 1 tablet (10 mg total) by mouth daily. [facility] Furosemide (Lasix) 40 MG oral Tablet 01-02 00:00: 00 01-29 00:00 :00 No [id number] 40mg Take 1 tablet (40 mg total) by mouth daily. [facility] che[facility] glipiZIDE 5 MG oral Tablet 12-09 00:00: 00 Yes [id number] 5mg Take 1 tablet (5 mg total) by mouth daily (before a meal). [facility] Benzonatate (Tessalon Perles) 100 MG oral Capsule 11-30 00:00: 00 Yes [id number] 100mg Q.[id number] 3D Take 1 capsule (100 mg total) by mouth 3 times daily as needed for cough. [facility] che[facility] glipiZIDE 5 MG oral Tablet 11-16 00:00: 00 Yes [id number] 5mg Take 1 tablet (5 mg total) by mouth daily (before a meal). [facility] Empaglifloz in (Jardiance) 10 MG oral Tablet - 00:00: 00 Yes [id number] 10mg Take 1 tablet (10 mg total) by mouth daily. [facility] Amlodipine Besylate 10 MG oral Tablet 2- 00:00: 00 Yes [id number] 10mg Take 1 tablet (10 mg total) by mouth daily. [facility] Furosemide (Lasix) 40 MG oral Tablet 2- 00:00: 00 Yes [id number] 40mg Take 1 tablet (40 mg total) by mouth 2 times daily. [facility] che[facility] Losartan Potassium (COZAAR) 100 MG oral Tablet 11-16 00:00: 00 Yes [id number] 100mg Take 1 tablet (100 mg total) by mouth daily. [facility] Atorvastati n Calcium 20 MG oral Tablet 11-16 00:00: 00 Yes [id number] 3 20mg Take 1 tablet (20 mg total) by mouth nightly. [facility] Blood Glucose Monitoring Suppl does not apply Kit 11-16 00:00: 00 Yes [id number] 1{each} Q.5D Inject 1 each into the skin 2 times daily Check BS twice daily. [facility] Glucose Blood in vitro Strip 11-16 00:00: 00 Yes [id number] 1{each} Q.5D 1 each by other route 2 times daily Check BS twice daily. [facility] Lancets 33G does not apply Misc 11-16 00:00: 00 Yes [id number] 1{each} Q.5D 1 each by does not apply route 2 times daily Check BS twice daily. [facility] Losartan Potassium (COZAAR) 100 MG oral Tablet 2022-10 1-24 00:00: 00 11-16 00:00 :00 No [id number] 100mg Take 1 tablet (100 mg total) by mouth daily. [facility] Amlodipine Besylate 10 MG oral Tablet 2022-10 1- 00:00: 00 11-16 00:00 :00 No [id number] 10mg TAKE 1 TABLET BY MOUTH EVERY DAY [facility] glipiZIDE 10 MG oral Tablet 2022-10 0- 00:00: 00 11-16 00:00 :00 No [id number] 3 TAKE 1 TABLET BY MOUTH IN THE MORNING AND IN THE EVENING BEFORE MEALS [facility] Januvia 100 MG oral Tablet 9-28 00:00: 00 11-16 00:00 :00 No [id number] 100mg TAKE 1 TABLET BY MOUTH EVERY DAY [facility] Furosemide (Lasix) 40 MG oral Tablet 7-10 00:00: 00 11-16 00:00 :00 No [id number] 40mg Take 1 tablet (40 mg total) by mouth 2 times daily [facility] Atorvastati n Calcium 20 MG oral Tablet 04-13 00:00: 00 11-16 00:00 :00 No [id number] 3 20mg Take 1 tablet (20 mg total) by mouth nightly [facility] Furosemide (Lasix) 40 MG oral Tablet 03-19 00:00: 00 Yes [id number] 40mg Take 1 tablet (40 mg total) by mouth 2 times daily [facility] chlorthalid one 25 mg tablet 02-10 00:00: 00 08-10 04:59 :00 No [id number] 25mg Take 1 tablet by mouth daily for 180 days. [facility] amLODIPine 10 mg tablet 02-09 15:20: 31 Yes 10mg Take 1 tablet by mouth daily. [facility] metFORMIN 1,000 mg tablet 02-09 15:20: 31 Yes 1000mg Take 1 tablet by mouth 2 (two) times daily with meals. [facility] glipiZIDE 10 mg tablet 02-09 15:20: 31 Yes 10mg Take 1 tablet by mouth daily. [facility] POTASSIUM-9 9 ORAL 02-09 15:20: 31 Yes 10meq Take 10 mEq by mouth. [facility] furosemide (LASIX) 20 mg tablet 02-09 13:03: 35 02-09 00:00 :00 No 20mg Take 1 tablet by mouth daily. [facility] losartan 100 mg tablet 02-09 13:03: 35 02-09 00:00 :00 No 100mg Take 1 tablet by mouth daily. [facility] furosemide (LASIX) injection 40 mg 02-09 01:00: 00 Yes 40mg 40 mg, Slow IV Push, Q12H, First dose on Thuy 02/08/23 at 2000, Until Discontinu ed, [facility] glipiZIDE 10 MG oral Tablet 02-09 00:00: 00 Yes [id number] 3 TAKE 1 TABLET BY MOUTH IN THE MORNING AND IN THE EVENING BEFORE MEALS [facility] furosemide 40 mg tablet 02-09 00:00: 00 08-09 04:59 :00 No [id number] 40mg Take 1 tablet by mouth every morning and evening for 180 days. [facility] atorvastati n 80 mg tablet 02-09 00:00: 00 08-09 04:59 :00 No [id number] 80mg Take 1 tablet by mouth at bedtime for 180 days. [facility] carvediloL 25 mg tablet 02-09 00:00: 00 08-09 04:59 :00 No [id number] 25mg Take 1 tablet by mouth 2 (two) times daily with meals for 180 days. [facility] hydrALAZINE 100 mg tablet 02-09 00:00: 00 08-09 04:59 :00 No [id number] 100mg Take 1 tablet by mouth 3 (three) times daily for 180 days. [facility] isosorbide dinitrate 40 mg tablet 02-09 00:00: 00 08-09 04:59 :00 No [id number] 40mg Take 1 tablet by mouth 3 (three) times daily for 180 days. [facility] hydroCHLORO thiazide 25 MG oral Tablet 02-09 00:00: 00 03-19 00:00 :00 No [id number] 25mg Take 1 tablet (25 mg total) by mouth daily [facility] chlorthalid one (HYGROTON) tablet 25 mg 02-08 14:00: 00 Yes 25mg 25 mg, Oral, DAILY, First dose on Thuy 02/08/23 at 0900, Until Discontinu ed, Routine [facility] heparin (porcine) injection 5,000 Units 02-08 13:00: 00 02-09 01:27 :00 No 5000U 5,000 Units, Subcutaneo us, Q12H, 2 doses, First dose (after last modificati on) on Sun02/08/23 at 0800, Last dose on Sun02/08/23 at 2000, Routine [facility] isosorbide dinitrate (ISORDIL) tablet 40 mg 02-07 17:00: 00 Yes 40mg 40 mg, Oral, TIDHOL, First dose (after last modificati on) on Sun02/07/23 at 1200, Until Discontinu ed, Routine [facility] HYDROcodone -acetaminop hen (NORCO 5) 5-325 mg tablet 1 tablet 02-07 02:00: 00 02-07 01:48 :00 No 1{tbl} 1 tablet, Oral, ONCE, 1 dose, On Sun02/06/23 at 2100, Routine [facility] hydrALAZINE (APRESOLINE ) tablet 100 mg 02-06 19:00: 00 Yes 100mg 100 mg, Oral, TID, First dose (after last modificati on) on Sun02/06/23 at 1400, Until Discontinu ed, Routine [facility] KCL (KLOR-CON M20) tablet 20 mEq 02-06 13:15: 00 02-06 14:49 :00 No 20meq 20 mEq, Oral, ONCE, 1 dose, On Sun02/06/23 at 0815, Routine [facility] regadenoson (LEXISCAN) injection 0.4 mg 02-05 19:30: 00 02-05 19:23 :00 No [id number] .4mg 0.4 mg, IV Push, ONCE, 1 dose, On Sun02/05/23 at 1430, Routine
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 tc 99m-tetrofo smin (MYOVIEW) injection 15 millicurie 02-05 18:15: 00 02-05 18:15 :00 No [id number] 15mCi 15 millicurie , Intravenou s, ONCE, 1 dose, On Sun02/05/23 at 1315, Routine [facility] isosorbide dinitrate (ISORDIL) tablet 30 mg 02-05 17:00: 00 02-07 15:56 :10 No 30mg 30 mg, Oral, TIDHOL, First dose (after last modificati on) on Sun02/05/23 at 1200, Until Discontinu ed, Routine [facility] spironolact one (ALDACTONE) tablet 25 mg 02-05 14:00: 00 02-05 16:06 :18 No 25mg 25 mg, Oral, DAILY, First dose (after last modificati on) on Sun02/05/23 at 0900, Until Discontinu ed, Routine [facility] isosorbide dinitrate (ISORDIL) tablet 10 mg 02-04 16:00: 00 02-05 16:06 :12 No 10mg 10 mg, Oral, TIDHOL, First dose on Sun02/04/23 at 1100, Until Discontinu ed, Routine [facility] carvediloL (COREG) tablet 25 mg 02-04 13:00: 00 Yes 25mg 25 mg, Oral, BID MEALS, First dose (after last modificati on) on 02/04/23 at 0800, Until Discontinu ed, Routine [facility] carvediloL (COREG) tablet 12.5 mg 02-03 16:30: 00 02-04 12:40 :41 No 12.5mg 12.5 mg, Oral, BID MEALS, First dose on 02/03/23 at 1130, Until Discontinu ed, Routine [facility] hydrALAZINE (APRESOLINE ) tablet 75 mg 02-02 23:00: 00 02-06 16:11 :05 No 75mg 75 mg, Oral, Q6H, First dose (after last modificati on) on Sun02/02/23 at 1800, Until Discontinu ed, Routine [facility] sennosides- docusate sodium (SENOKOT-S) 8.6-50 mg per tablet 1 tablet 02-02 17:00: 00 Yes 1{tbl} 1 tablet, Oral, BID, First dose on Sun02/02/23 at 1200, Until Discontinu ed, Routine [facility] polyethylen e glycol 3350 powder 17 g 02-02 17:00: 00 Yes 17g 17 g, Oral, DAILY, First dose on Sun02/02/23 at 1200, Until Discontinu ed, Routine [facility] furosemide (LASIX) injection 80 mg 02-02 14:00: 00 02-06 14:32 :30 No 80mg 80 mg, IV Push, QAM+PM, First dose (after last modificati on) on Sun02/02/23 at 0900, Until Discontinu ed, JUAN [facility] spironolact one (ALDACTONE) tablet 50 mg 02-02 14:00: 00 02-04 15:48 :23 No 50mg 50 mg, Oral, DAILY, First dose (after last modificati on) on Sun02/02/23 at 0900, Until Discontinu ed, Routine [facility] perflutren lipid microsphere s (DEFINITY) injection 2 mL 02-01 17:15: 00 02-01 17:15 :00 No [id number] 2mL 2 mL, IV Push, ONCE, 1 dose, On Sun02/01/23 at 1215, Routine [facility] hydrALAZINE (APRESOLINE ) tablet 50 mg 02-01 17:00: 00 02-02 17:59 :19 No 50mg 50 mg, Oral, Q6H, First dose (after last modificati on) on Sun02/01/23 at 1200, Until Discontinu ed, Routine [facility] spironolact one (ALDACTONE) tablet 25 mg 02-01 14:00: 00 02-02 12:22 :23 No 25mg 25 mg, Oral, DAILY, First dose (after last modificati on) on Sun02/01/23 at 0900, Until Discontinu ed, Routine [facility] atorvastati n (LIPITOR) tablet 80 mg 02-01 02:00: 00 Yes 80mg 80 mg, Oral, QHS, First dose (after last modificati on) on Sun01/31/23 at 2100, Until Discontinu ed, Routine [facility] hydrALAZINE (APRESOLINE ) tablet 25 mg 01-31 20:00: 00 02-01 13:14 :59 No 25mg 25 mg, Oral, Q6H, First dose on Sun01/31/23 at 1500, Until Discontinu ed, Routine [facility] spironolact one (ALDACTONE) tablet 12.5 mg 01-31 18:45: 00 02-01 11:40 :54 No 12.5mg 12.5 mg, Oral, DAILY, First dose on Sun01/31/23 at 1345, Until Discontinu ed, Routine [facility] amLODIPine (NORVASC) tablet 10 mg 01-31 14:00: 00 Yes 10mg 10 mg, Oral, DAILY, First dose on Sun01/31/23 at 0900, Until Discontinu ed, Routine [facility] aspirin chewable tablet 81 mg 01-31 14:00: 00 02-07 18:08 :07 No 81mg 81 mg, Oral, DAILY, First dose on Sun01/31/23 at 0900, Until Discontinu ed, Routine [facility] furosemide (LASIX) injection 40 mg 01-31 14:00: 00 02-02 13:05 :42 No 40mg 40 mg, IV Push, QAM+PM, First dose (after last reorder) on Sun01/31/23 at 0900, Until Discontinu ed, JUAN [facility] Sliding Scale Insulin - Lispro (HumaLOG) + Fsbg Testing 01-31 13:00: 00 Yes Subcutaneo us, TID MEALS+HS, First dose on Sun01/31/23 at 0800, Until Discontinu ed, Routine [facility] heparin (porcine) injection 5,000 Units 01-31 13:00: 00 02-08 11:53 :28 No 5000U 5,000 Units, Subcutaneo us, Q12H, First dose on Sun01/31/23 at 0800, Until Discontinu ed, Routine [facility] dextrose 10% (D10W) bolus infusion 250 mL [...] blood glucose is < 80 mg/dL, repeat.
[facility] glucagon (GLUCAGEN DIAGNOSTIC KIT) injection 1 mg 01-31 06:12: 08 Yes 1mg 1 mg, Intramuscu lar, PRN, Starting on Sun01/31/23 at 0112, Until Discontinu ed, JUAN, Blood Glucose < or = 70 mg/dL and patient is NPO, unable to swallow or has mental changes. [facility] acetaminoph en (TYLENOL) tablet 650 mg 01-31 05:09: 15 Yes 650mg 650 mg, Oral, Q6HPRN, Starting on Sun01/31/23 at 0009, Until Discontinu ed, Routine, Pain (scale 1-3) [facility] levoFLOXaci n in D5W (LEVAQUIN) 750 mg/150 mL Piggyback 750 mg 01-31 01:45: 00 01-31 03:42 :00 No 750mg 750 mg, IV Piggyback, ONCE, 1 dose, On Sun01/30/23 at 2045, Administer over 90 Minutes, 150 mL
Reas on for Anti-Infec tive: Documented Infection< br>Documen eulalio Infection Site: Respirator y
Durat ion of Therapy: 7 days [facility] aspirin tablet 325 mg 01-31 00:30: 00 01-30 23:44 :00 No 325mg 325 mg, Oral, ONCE, 1 dose, On Sun01/30/23 at 1930, Routine [facility] nitroglycer in (NITROL) 2 % ointment 0.5 Inch 01-30 23:45: 00 01-31 00:05 :00 No .5[in_u s] 0.5 Inch, Transderma l (Apply To Skin), ONCE, 1 dose, On Sun01/30/23 at 1845, JUAN [facility] furosemide (LASIX) injection 40 mg 01-30 23:45: 00 01-30 23:45 :00 No 40mg 40 mg, IV Push, ONCE, 1 dose, On Sun01/30/23 at 1845, JUAN [facility] hydroCHLORO thiazide 25 MG oral Tablet 12-06 00:00: 00 Yes [id number] 25mg Take 1 tablet (25 mg total) by mouth daily [facility] Metformin HCl ER 500 MG oral TABLET SR 24 HR 12-06 00:00: 00 Yes [id number] 3 1000mg Take 2 tablets (1,000 mg total) by mouth 2 times daily [facility] glipiZIDE 10 MG oral Tablet 12-06 00:00: 00 Yes [id number] 3 10mg Take 1 tablet (10 mg total) by mouth in the morning and 1 tablet (10 mg total) in the evening. Take before meals. [facility] Losartan Potassium (COZAAR) 100 MG oral Tablet 12-06 00:00: 00 Yes [id number] 100mg Take 1 tablet (100 mg total) by mouth daily [facility] Amlodipine Besylate 10 MG oral Tablet 12-06 00:00: 00 Yes [id number] 10mg Take 1 tablet (10 mg total) by mouth daily [facility] Atorvastati n Calcium 20 MG oral Tablet 12-06 00:00: 00 Yes [id number] 3 20mg Take 1 tablet (20 mg total) by mouth daily [facility] Amlodipine Besylate 10 MG oral Tablet 2021-10 2 00:00: 00 12-06 00:00 :00 No 10mg Take 10 mg by mouth daily [facility] Atorvastati n Calcium 20 MG oral Tablet 2021-10 2 00:00: 00 12-06 00:00 :00 No 20mg Take 20 mg by mouth daily [facility] glipiZIDE 10 MG oral Tablet 2021-10 2 00:00: 00 12-06 00:00 :00 No TAKE 1 TABLET BY MOUTH TWICE DAILY 30 MINUTES BEFORE MEALS [facility] Losartan Potassium (COZAAR) 100 MG oral Tablet 2021-10 2 00:00: 00 12-06 00:00 :00 No 100mg Take 100 mg by mouth daily [facility] Metformin HCl ER 500 MG oral TABLET SR 24 HR 2021-10 2 00:00: 00 12-06 00:00 :00 No 500mg Take 500 mg by mouth 2 times daily [facility] Dose Unknown 9-05 00:00: 00 No Dose Unknown 9-05 00:00: 00 No 500 TAKE 1 TABLET BY MOUTH ONCE DAILY FOR 30 DAYS 8-05 00:00: 00 No 40 TAKE 1 TABLET BY MOUTH ONCE DAILY 8 00:00: 00 No 10 TAKE 1 TABLET BY MOUTH ONCE DAILY FOR 30 DAYS 8 00:00: 00 No 40 TAKE 1 TABLET BY MOUTH ONCE DAILY 8 00:00: 00 No 10 TAKE 1 TABLET BY MOUTH ONCE DAILY 05-09 00:00: 00 No 10 Dose Unknown 05-09 00:00: 00 No 500 TAKE 1 TABLET BY MOUTH ONCE DAILY 05-09 00:00: 00 No 10 Dose Unknown 05-09 00:00: 00 No 500 TAKE 1 TABLET BY MOUTH TWICE DAILY WITH MEALS 04-17 00:00: 00 No 500 TAKE 1 TABLET BY MOUTH TWICE DAILY WITH MEALS 04-17 00:00: 00 No 500 atorvastati n 10 mg tablet 03-25 00:00: [...] No 1mg TAKE 1 TABLET BY MOUTH TWICE DAILY WITH MEALS 03-25 00:00: 00 No TAKE 1 TABLET BY MOUTH TWICE DAILY BEFORE BREAKFAST AND BEFORE SUPPER 03-25 00:00: 00 No TAKE 1 CAPSULE BY MOUTH TWICE DAILY FOR 7 DAYS 03-25 00:00: 00 No Mupirocin (BACTROBAN) 2 % apply externally Ointment 03-25 00:00: 00 11-16 00:00 :00 No 1% 1 % Sonia margarette Pachecoa l amlodipine 10 mg tablet 0 02-13 00:00: 00 No 1mg atorvastati n 10 mg tablet 0 02-13 00:00: 00 No 1mg Januvia 100 mg tablet 0 02-13 00:00: 00 No 1mg Dose Unknown 0 02-13 00:00: 00 No amlodipine 10 mg tablet 0 02-13 00:00: 00 No 1mg atorvastati n 10 mg tablet 0 02-13 00:00: 00 No 1mg Januvia 100 mg tablet 0 02-13 00:00: 00 No 1mg metformin 1,000 mg tablet 0 02-13 00:00: 00 No 1mg Dose Unknown 0 02-10 00:00: 00 No Dose Unknown 0 02-10 00:00: 00 No Dose Unknown 0 02-10 00:00: 00 No Dose Unknown 0 02-10 00:00: 00 No Dose Unknown 0 02-10 00:00: 00 No Dose Unknown 0 02-10 00:00: 00 No Dose Unknown 0 02-10 00:00: 00 No Dose Unknown 0 02-10 00:00: 00 No amlodipine 10 mg tablet 0 - 00:00: 00 No 1mg atorvastati n 10 mg tablet 0 - 00:00: 00 No 1mg Januvia 100 mg tablet 0 - 00:00: 00 No 1mg metformin 1,000 mg tablet 0 - 00:00: 00 No 1mg amlodipine 10 mg tablet 2021-0 -12 00:00: 00 No 1mg atorvastati n 10 mg tablet 0 -12 00:00: 00 No 1mg Januvia 100 mg tablet 0 -12 00:00: 00 No 1mg metformin 1,000 mg tablet 2021-0 3-12 00:00: 00 No 1mg Sitagliptin Phosphate (Januvia) 100 MG oral Tablet 0 3-12 00:00: 00 Yes 1mg 1 mg Sonia Seybold - Externa l Blood Glucose Monitoring Suppl does not apply Kit 0 3-12 00:00: 00 11-16 00:00 :00 No 1{each} 1 each Sonia Seybold - Externa l Dose Unknown 0 3-11 00:00: 00 No Januvia 25 mg tablet 0 3-11 00:00: 00 No 1mg Dose Unknown 0 3-11 00:00: 00 No Dose Unknown 0 3-11 00:00: 00 No Dose Unknown 0 3-11 00:00: 00 No Januvia 25 mg tablet 0 3- 00:00: 00 No 1mg Dose Unknown 0 3-11 00:00: 00 No metformin 850 mg tablet 0 3-11 00:00: 00 No 1mg Dose Unknown 0 2-10 00:00: 00 No Dose Unknown 0 2-10 00:00: 00 No Dose Unknown 0 2-10 00:00: 00 No Dose Unknown 0 2-10 00:00: 00 No metformin 850 mg tablet 0 1-24 00:00: 00 No 1mg amlodipine 10 mg tablet 0 1-24 00:00: 00 No 1mg Dose Unknown 0 1-24 00:00: 00 No amlodipine 10 mg tablet 0 1-24 00:00: 00 No 1mg amLODIPine 10 mg tablet 2020-10 0- 00:00: 00 08-09 04:59 :00 No [id number] 10mg Take 1 tablet by mouth daily for 30 days. [facility] aspirin 81 mg chewable tablet 2020-10 0- 00:00: 00 08-09 04:59 :00 No [id number] 81mg Take 1 tablet by mouth daily for 30 days. [facility] lisinopriL 40 mg tablet 2020-10 0- 00:00: 00 08-09 04:59 :00 No [id number] 40mg Take 1 tablet by mouth daily for 30 days. [facility] amLODIPine (NORVASC) tablet 10 mg 2020-10 14:00: 00 Yes 10mg 10 mg, Oral, DAILY, First dose on Sun07/08/21 at 0900, Until Discontinu ed, Routine [facility] Blood-Gluco se Meter (RELION ALL-IN-ONE METER) Kit 2020-10 00:00: 00 Yes [id number] Use as directed [facility] Insulin Mitchell, Disposable, (RELION NEEDLES) 31 gauge x 1/4" Ndle 2020-10 00:00: 00 Yes [id number] Use as directed [facility] atorvastati n 40 mg tablet 2020-10 00:00: 00 08-08 04:59 :00 No [id number] 40mg Take 1 tablet by mouth at bedtime for 30 days. [facility] glipiZIDE 10 mg tablet 2020-10 00:00: 00 08-08 04:59 :00 No [id number] 10mg Take 1 tablet by mouth 2 (two) times daily before breakfast and dinner for 30 days. [facility] insulin NPH and regular human 70-30 100 unit/mL (70-30) injection 2020-10 00:00: 00 08-08 04:59 :00 No [id number] 13U inject 13 Units under the skin every morning and evening for 30 days. [facility] metFORMIN 500 mg tablet 2020-10 00:00: 00 08-08 04:59 :00 No [id number] 500mg Take 1 tablet by mouth 2 (two) times daily with meals for 30 days. [facility] lactobacill us acidophilus 2020-10 00:00: 00 07-19 04:59 :00 No [id number] .5mg Take 1 tablet by mouth 2 (two) times daily for 10 days. [facility] amoxicillin 500 mg tablet 2020-10 00:00: 00 07-16 04:59 :00 No [id number] 500mg Take 1 tablet by mouth 2 (two) times daily for 7 days. [facility] HYDROcodone -acetaminop hen 5-325 mg tablet 2020-10 0 00:00: 00 07-14 04:59 :00 No [id number] 1{tbl} Take 1 tablet by mouth every 6 (six) hours as needed for Pain (scale 7-10) for up to 5 days. Indication s: acute pain [facility] lisinopriL (PRINIVIL,Z ESTRIL) tablet 40 mg 07-07 14:00: 00 Yes 40mg 40 mg, Oral, DAILY, First dose (after last modificati on) on Thuy 07/07/21 at 0900, Until Discontinu ed, Routine [facility] lactated ringers IV infusion 1,000 mL 07-07 13:45: 00 Yes 1000mL at 50 mL/hr, 1,000 mL, IV Infusion, CONTINUOUS , Starting on Thuy 07/07/21 at 0845, Until Discontinu ed, Routine, PACU [facility] HYDROmorphO ne (DILAUDID) injection 0.2 mg 07-07 13:35: 49 07-07 14:34 :40 No .2mg 0.2 mg, Slow IV Push, Q5MIN PRN, 10 doses, Starting on Thuy 07/07/21 at 0835, Until Thuy 07/07/21 at 0934, Routine, Pain (scale 7-10), PACU
Us e approved by (Faculty): PACU USE -ANESTHESI A SERVICE-HY DROMORPHON E INJECTIONS [facility] bupivacaine (preserv free) (SENSORCAIN E MPF) 0.25 % (2.5 mg/mL) 5 mL, lidocaine 1% (PF) (XYLOCAINE) 5 mL 07-07 13:14: 00 07-07 14:34 :40 No PRN, Starting on Thuy 07/07/21 at 0814, Intra-op [facility] benzocaine- menthoL (CEPACOL SORE THROAT (ANA LILIA-MEN)) lozenge 1 Lozenge 07-07 00:29: 57 Yes 1{lozen ge} 1 Lozenge, Oral, Q4HPRN, Starting on Sun07/06/21 at 1929, Until Discontinu ed, Routine, cough/sore throat [facility] insulin NPH and regular human 70-30 (HUMULIN 70-30 U-100 INSULIN) 100 unit/mL (70-30) injection 13 Units 07-06 22:00: 00 Yes 13U 13 Units, Subcutaneo us, QAM+PM, First dose on Sun07/06/21 at 1700, Until Discontinu ed, Routine [facility] lisinopriL (PRINIVIL,Z ESTRIL) tablet 20 mg 07-06 18:30: 00 07-06 18:54 :00 No 20mg 20 mg, Oral, ONCE NOW, 1 dose, On Sun07/06/21 at 1330, Routine [facility] No known medications 07-06 07:41: 15 No [facility] lactated ringers IV infusion 1,000 mL 07-06 00:15: 00 07-06 13:29 :01 No 1000mL at 100 mL/hr, 1,000 mL, IV Infusion, CONTINUOUS , Starting on Sun07/05/21 at 1915, Until Sun07/06/21 at 0829, Routine, PACU [facility] sodium chloride 0.9 % irrigation solution 07-06 00:09: 00 07-06 00:34 :57 No PRN, Starting on Sun07/05/21 at 1909, Until Sun07/05/21 at 1934, Intra-op [facility] bupivacaine (preserv free) 0.5% (SENSORCAIN E MPF) 0.5 % (5 mg/mL) injection 07-06 00:07: 00 07-06 00:34 :57 No PRN, Starting on Sun07/05/21 at 1907, Until Sun07/05/21 at 1934, Routine, Intra-op [facility] lidocaine 1% (XYLOCAINE) 10 mg/mL (1 %) injection 07-05 23:22: 00 07-06 00:34 :57 No PRN, Starting on Sun07/05/21 at 1822, Until Sun07/05/21 at 1934, Routine, Intra-op [facility] gadoteridol (PROHANCE-2 0 mL) injection 19.2 mL 07-05 14:45: 00 07-05 14:45 :00 No [id number] .2mL/kg 19.2 mL (0.2 mL/kg ?96 kg), Intravenou s, ONCE, 1 dose, On Sun07/05/21 at 0945, Routine [facility] vancomycin 1500 mg in NS 500 mL IV Piggyback RTU 1,500 mg 07-05 05:00: 00 Yes 1500mg 1,500 mg, IV Infusion, Q12H ABX, First dose on Sun07/05/21 at 0000, Until Discontinu ed, Administer over 90 Minutes
Reason for Anti-Infec tive: Documented Infection< br>Documen eulalio Infection Site: Wound
D uration of Therapy: 7 days [facility] metroNIDAZO LE (FLAGYL) tablet 500 mg 07-05 03:00: 00 Yes 500mg 500 mg, Oral, Q8H, First dose on Sun07/04/21 at 2200, Until Discontinu ed, Routine
Reason for Anti-Infec tive: Documented Infection< br>Documen eulalio Infection Site: Skin / Soft Tissue
Duration of Therapy: 7 days [facility] benzonatate (TESSALON PERLES) capsule 100 mg 07-05 01:20: 41 Yes 100mg 100 mg, Oral, TIDPRN, Starting on Sun07/04/21 at 2020, Until Discontinu ed, Routine, Cough [facility] HYDROcodone -acetaminop hen (NORCO) 10-325 mg tablet 1 tablet 07-05 01:20: 21 Yes 1{tbl} 1 tablet, Oral, Q6HPRN, Starting on Sun07/04/21 at 2020, Until Discontinu ed, Routine, Pain (scale 7-10) [facility] HYDROcodone -acetaminop hen (NORCO 5) 5-325 mg tablet 1 tablet 07-05 01:20: 07 Yes 1{tbl} 1 tablet, Oral, Q6HPRN, Starting on Sun07/04/21 at 2020, Until Discontinu ed, Routine, Pain (scale 4-6) [facility] lactobacill us acidophilus tablet 0.5 mg 07-05 01:00: 00 Yes .5mg 0.5 mg, Oral, BID, First dose on Sun07/04/21 at 2000, Until Discontinu ed, Routine [facility] ceFEPIme (MAXIPIME) 1,000 mg in NaCl 0.9% (NS) 50 mL MINI-BAG 07-04 21:30: 00 Yes 1000mg 1,000 mg, IV Piggyback, Q8H ABX, First dose on Sun07/04/21 at 1630, Until Discontinu ed, Administer over 30 Minutes, 50 mL
Reas on for Anti-Infec tive: Documented Infection< br>Documen eulalio Infection Site: Skin / Soft Tissue
Duration of Therapy: 7 days [facility] atorvastati n (LIPITOR) tablet 40 mg 07-04 02:00: 00 Yes 40mg 40 mg, Oral, QHS, First dose on Sun07/03/21 at 2100, Until Discontinu ed, Routine [facility] vancomycin (VANCOCIN) 1,000 mg in NaCl 0.9% (NS) 250 mL VIAL-MATE IV piggyback 07-03 17:00: 00 07-04 22:34 :00 No 1000mg 1,000 mg, IV Piggyback, Q12H ABX, First dose (after last reorder) on Sun07/03/21 at 1200, Until Discontinu ed, Administer over 60 Minutes, 250 mL
Reas on for Anti-Infec tive: Documented Infection< br>Documen eulalio Infection Site: Wound
D uration of Therapy: 7 days [facility] iopamidol (ISOVUE 370-500 mL) injection 100 mL 07-03 16:00: 00 07-03 14:35 :00 No [id number] 100mL 100 mL, Intravenou s, ONCE, 1 dose, On Sun07/03/21 at 1100, [facility] magnesium sulfate in water 2 gram/50 mL (4 %) infusion 2 g 07-03 14:30: 00 07-03 15:41 :00 No 2g 2 g, IV Piggyback, ONCE, 1 dose, On Sun07/03/21 at 0930, Routine [facility] piperacilli n-tazobacta m (ZOSYN) 3.375 g [...]
D uration of Therapy: Other (see Comments) [facility] aspirin chewable tablet 81 mg 07-03 14:00: 00 Yes 81mg 81 mg, Oral, DAILY, First dose on Sun07/03/21 at 0900, Until Discontinu ed, Routine [facility] enoxaparin (LOVENOX) injection 40 mg 07-03 14:00: 00 Yes 40mg 40 mg, Subcutaneo us, DAILY, First dose on Sun07/03/21 at 0900, Until Discontinu ed, Routine [facility] NaCl 0.9% (NS) IV infusion 1,000 mL 07-03 13:15: 00 Yes 1000mL at 50 mL/hr, IV Infusion, CONTINUOUS , Starting on Sun07/03/21 at 0815, Until Discontinu ed, Routine [facility] docusate (COLACE) capsule 100 mg 07-03 13:00: 00 Yes 100mg 100 mg, Oral, BID, First dose on 07/03/21 at 0800, Until Discontinu ed, Routine [facility] lisinopriL (PRINIVIL,Z ESTRIL) tablet 20 mg 07-03 13:00: 00 07-06 17:22 :08 No 20mg 20 mg, Oral, BID, First dose on 07/03/21 at 0800, Until Discontinu ed, Routine [facility] glipiZIDE (GLUCOTROL) tablet 10 mg 07-03 12:30: 00 Yes 10mg 10 mg, Oral, BIDAC, First dose on 07/03/21 at 0730, Until Discontinu ed, Routine [facility] insulin NPH and regular human 70-30 (HUMULIN 70-30 U-100 INSULIN) 100 unit/mL (70-30) injection 10 Units 07-03 12:30: 00 07-04 13:29 :20 No 10U 10 Units, Subcutaneo us, BIDAC, First dose on 07/03/21 at 0730, Until Discontinu ed, Routine [facility] magnesium oxide (MAG-OX 400) tablet 400 mg 07-03 12:15: 00 Yes 400mg 400 mg, Oral, BID, First dose on 07/03/21 at 0715, Until Discontinu ed, Routine [facility] Sliding Scale Insulin - Lispro (HumaLOG) + Fsbg Testing 07-03 08:45: 00 Yes Subcutaneo us, TID MEALS, First dose on Sun07/03/21 at 0345, Until Discontinu ed, Routine [facility] ondansetron (ZOFRAN (PF)) injection 4 mg 07-03 08:30: 37 Yes 4mg 4 mg, Slow IV Push, Q6HPRN, Starting on 07/03/21 at 0330, Until Discontinu ed, Routine, Nausea and Vomiting (N/V) [facility] piperacilli n-tazobacta m (ZOSYN) 3.375 g in NaCl 0.9% (NS) 100 mL MINI-BAG 07-03 08:30: 00 07-03 08:16 :00 No 3.375g 3.375 g, IV Piggyback, ONCE, 1 dose, On Sun07/03/21 at 0330, Administer over 30 Minutes, 100 mL
Reas on for Anti-Infec tive: Documented Infection< br>Documen eulalio Infection Site: Wound
D uration of Therapy: Other (see Comments) [facility] glucagon (GLUCAGEN DIAGNOSTIC KIT) injection 1 mg 07-03 08:29: 07 Yes 1mg 1 mg, Intramuscu lar, PRN, Starting on Sun07/03/21 at 0329, Until Discontinu ed, JUAN, Blood Glucose < or = 70 mg/dL and patient is unable to swallow or has mental changes. [facility] dextrose 50 % in water (D50W) injection 25 mL 07-03 08:29: 07 Yes 25mL 25 mL, Slow IV Push, PRN, Starting on Sun07/03/21 at 0329, Until Discontinu ed, JUAN, Blood Glucose < or = 70 mg/dL and patient is unable to swallow or has mental status changes. [facility] labetaloL (NORMODYNE) injection 10 mg 07-03 08:00: 00 07-03 07:02 :00 No 10mg 10 mg, Slow IV Push, ONCE, 1 dose, On Sun07/03/21 at 0300, JUAN [facility] HYDROcodone -acetaminop hen (NORCO) 10-325 mg tablet 1 tablet 07-03 07:15: 00 07-03 06:13 :00 No 1{tbl} 1 tablet, Oral, ONCE, 1 dose, On Sun07/03/21 at 0215, Routine [facility] vancomycin 1500 mg in NS 500 mL IV Piggyback RTU 1,500 mg 07-03 07:00: 00 07-03 07:31 :00 No 15mg/kg 1,500 mg (rounded from 1,633.5 mg = 15 mg/kg ?108.9 kg), IV Piggyback, ONCE, 1 dose, On 07/03/21 at 0200, Administer over 90 Minutes
Reason for Anti-Infec tive: Documented Infection< br>Docu mented Infection Site: Wound
D uration of Therapy: 7 days [facility] NaCl 0.9% (NS) bolus infusion 1,000 mL 07-03 06:00: 00 07-03 07:55 :00 No 1000mL at 999 mL/hr, 1,000 mL, IV Infusion, ONCE, 1 dose, On 07/03/21 at 0100, STAT [facility] Novolin R Regular U-100 Insulin 100 unit/mL [...] Value Comments S ource Systolic blood pressure 2024-05-19 19:13:00 138 mm[Hg] Sonia doyle - External Diastolic blood pressure 2024-05-19 19:13:00 68 mm[Hg] Sonia doyle - External Heart rate 2024-05-19 18:28:00 70 /min Mireya Orr - External Body temperature 2024-05-19 18:28:00 36.17 Rhonda Sonia Seybold - External Respiratory rate 2024-05-19 18:28:00 15 /min Sonia Seybold - External Body height 2024-05-19 18:28:00 162.6 cm Lorenza ey Seybold - External Body weight 2024-05-19 18:28:00 105.235 kg Lorenza ey Seybold - External BMI 2024-05-19 18:28:00 39.82 kg/m2 Lorenza ey Seybold - External Systolic blood pressure 2024-03-20 20:39:00 120 mm[Hg] Sonia Seybo ld - External Diastolic blood pressure 2024-03-20 20:39:00 74 mm[Hg] Sonia Seybo ld - External Heart rate 2024-03-20 20:39:00 74 /min Kelse y Seybold - External Body temperature 2024-03-20 20:39:00 36.5 Rhonda Sonia Seybold - External Respiratory rate 2024-03-20 20:39:00 16 /min Sonia Seybold - External Body height 2024-03-20 20:39:00 162.6 cm Lorenza ey Seybold - External Body weight 2024-03-20 20:39:00 94.802 kg Lorenza ey Seybold - External BMI 2024-03-20 20:39:00 35.87 kg/m2 Lorenza ey Seybold - External Oxygen saturation in Arterial blood by Pulse oximetry 2024-03-20 20:39:00 100 /min Sonia Seybo ld - External Systolic blood pressure 2024-01-30 16:33:00 125 mm[Hg] Sonia Seybo ld - External Diastolic blood pressure 2024-01-30 16:33:00 71 mm[Hg] Sonia Seybo ld - External Heart rate 2024-01-30 16:33:00 78 /min Kelse y Seybold - External Body temperature 2024-01-30 16:33:00 36.72 Rhonda Sonia Seybold - External Respiratory rate 2024-01-30 16:33:00 15 /min Sonia Seybold - External Body height 2024-01-30 16:33:00 162.6 cm Lorenza ey Seybold - External Body weight 2024-01-30 16:33:00 92.08 kg Lorenza ey Seybold - External BMI 2024-01-30 16:33:00 34.84 kg/m2 Lorenza ey Seybold - External Oxygen saturation in Arterial blood by Pulse oximetry 2024-01-30 16:33:00 100 /min Sonia Seybo ld - External Systolic blood pressure 2024-01-02 16:48:00 120 mm[Hg] Sonia Seybo ld - External Diastolic blood pressure 2024-01-02 16:48:00 82 mm[Hg] Sonia Seybo ld - External Heart rate 2024-01-02 16:48:00 62 /min Kelse y Seybold - External Body temperature 2024-01-02 16:48:00 36.94 Rhonda Sonia Seybold - External Respiratory rate 2024-01-02 16:48:00 20 /min Sonia Seybold - External Body height 2024-01-02 16:48:00 162.6 cm Lorenza ey Seybold - External Body weight 2024-01-02 16:48:00 97.07 kg Lorenza ey Seybold - External BMI 2024-01-02 16:48:00 36.73 kg/m2 Lorenza ey Seybold - External Oxygen saturation in Arterial blood by Pulse oximetry 2024-01-02 16:48:00 95 /min Sonia Seybo ld - External Systolic blood pressure 2023-11-30 18:23:00 140 mm[Hg] Sonia Seybo ld - External Diastolic blood pressure 2023-11-30 18:23:00 76 mm[Hg] Sonia Seybo ld - External Heart rate 2023-11-30 17:49:00 87 /min Kelse y Seybold - External Body temperature 2023-11-30 17:49:00 36.17 Rhonda Sonia Seybold - External Respiratory rate 2023-11-30 17:49:00 19 /min Sonia Seybold - External Body height 2023-11-30 17:49:00 162.6 [...] External Heart rate 2023-11-16 14:21:00 91 /min Ronaldse y Seybold - External Body temperature 2023-11-16 [...] Systolic blood pressure 2023-03-19 14:28:00 176 mm[Hg] Soina Seybo ld - External Diastolic blood pressure 2023-03-19 14:28:00 88 mm[Hg] Sonia Seybo ld - External Heart rate 2023-03-19 14:28:00 92 /min Ronaldse y Seybold - External Body temperature 2023-03-19 14:28:00 36.72 Rhonda Sonia Seybold - External Respiratory rate 2023-03-19 14:28:00 22 /min Sonia Seybold - External Body height 2023-03-19 14:28:00 162.6 cm Lorenza ey Seybold - External Body weight 2023-03-19 14:28:00 111.857 kg Lorenza ey Seybold - External BMI 2023-03-19 14:28:00 42.33 kg/m2 Lorenza ey Seybold - External Oxygen saturation in Arterial blood by Pulse oximetry 2023-03-19 14:28:00 94 /min Sonia Seybo ld - External Systolic blood pressure 2023-02-09 16:14:00 113 mm[Hg] [facility] Diastolic blood pressure 2023-02-09 16:14:00 57 mm[Hg] [facility] Heart rate 2023-02-09 16:14:00 66 /min [facility] Body temperature 2023-02-09 16:14:00 36.17 Rhonda [facility] Respiratory rate 2023-02-09 16:14:00 18 /min [facility] Oxygen saturation in Arterial blood by Pulse oximetry 2023-02-09 16:14:00 93 /min [facility] Body weight 2023-02-03 15:03:00 103.329 kg [facility] BMI 2023-02-03 15:03:00 34.64 kg/m2 [facility] Body height 2023-01-31 04:48:00 172.7 cm [facility] Body height 2022-12-06 20:48:00 170.2 cm Lorenza ey Seybold - External Systolic blood pressure 2022-12-06 20:20:00 154 mm[Hg] Sonia Jacobybo ld - External Diastolic blood pressure 2022-12-06 20:20:00 90 mm[Hg] Sonia Jacobybo ld - External Heart rate 2022-12-06 20:20:00 92 /min Ronald y ybold - External Body temperature 2022-12-06 20:20:00 37.11 Rhonda Sonia Jacobybold - External Respiratory rate 2022-12-06 20:20:00 14 /min Sonia Seybold - External Body weight 2022-12-06 20:20:00 105.688 kg Lorenza brianna Seybold - External BMI 2022-12-06 20:20:00 36.49 kg/m2 Lorenza ey Seybold - External Oxygen saturation in Arterial blood by Pulse oximetry 2022-12-06 20:20:00 96 /min Sonia Kolbo ld - External Systolic blood pressure 2021-07-08 12:33:00 181 mm[Hg] [facility] Diastolic blood pressure 2021-07-08 12:33:00 86 mm[Hg] [facility] Heart rate 2021-07-08 12:33:00 79 /min [facility] Body temperature 2021-07-08 12:33:00 36.28 Rhonda [facility] Respiratory rate 2021-07-08 12:33:00 18 /min [facility] Oxygen saturation in Arterial blood by Pulse oximetry 2021-07-08 12:33:00 95 /min [facility] Body weight 2021-07-08 08:12:00 98.975 kg [facility] BMI 2021-07-08 08:12:00 35.24 kg/m2 [facility] Body height 2021-07-06 12:41:00 167.6 cm [facility] Systolic blood pressure 2021-07-07 14:15:00 142 mm[Hg] [facility] Diastolic blood pressure 2021-07-07 14:15:00 74 mm[Hg] [facility] Heart rate 2021-07-07 14:15:00 75 /min [facility] Respiratory rate 2021-07-07 14:15:00 18 /min [facility] Oxygen saturation in Arterial blood by Pulse oximetry 2021-07-07 14:15:00 91 /min [facility] Body temperature 2021-07-07 13:30:00 36.11 Rhonda [facility] Body weight 2021-07-07 09:26:00 97.977 kg [facility] BMI 2021-07-07 09:26:00 35.24 kg/m2 [facility] Body height 2021-07-06 12:41:00 167.6 cm [facility] Systolic blood pressure 2021-07-05 20:29:00 177 mm[Hg] [facility] Diastolic blood pressure 2021-07-05 20:29:00 83 mm[Hg] [facility] Heart rate 2021-07-05 20:29:00 98 /min [facility] Body temperature 2021-07-05 20:29:00 37.22 Rhonda [facility] Oxygen saturation in Arterial blood by Pulse oximetry 2021-07-05 20:29:00 98 /min [facility] Respiratory rate 2021-07-05 09:46:00 20 /min [facility] Body weight 2021-07-05 09:46:00 95.981 kg [facility] BMI 2021-07-05 09:46:00 34.18 kg/m2 [facility] Body height 2021-07-04 13:04:00 167.6 cm [facility] BP Systolic 2022-09-09 11:01:00 206 mm[Hg] BP [...] POCT GLUCOSE (AUTOMATED) 2023-02-09 17:00:00 Thompson Walker [facility] VERIFYNOW ASPIRIN TEST 2023-02-09 14:40:00 Hamilton Orozco [facility] POCT GLUCOSE (AUTOMATED) 2023-02-09 12:41:00 Thompson Walker [facility] PHOSPHORUS 2023-02-09 10:08:00 Dee Desai [facility] MAGNESIUM 2023-02-09 10:08:00 Dee Desai [facility] BASIC METABOLIC PANEL (NA, K, CL, CO2, GLUCOSE, BUN, CREATININE, CA) 2023-02-09 10:08[facility] 2023-02-09 10:08:00 Dee Desai [facility] PROTHROMBIN TIME / INR 2023-02-09 10:08:00 Vale Desai [facility] ACTIVATED PARTIAL THRMPLAS TAMI 2023-02-09 10:08:00 Lloyd [facility] POCT GLUCOSE (AUTOMATED) 2023-02-09 01:26:[address] [facility] POCT GLUCOSE (AUTOMATED) 2023-02-08 22:00:[address] [facility] VERIFYNOW ASPIRIN TEST 2023-02-08 21:37:00 Hamilton Orozcobbir [facility] POCT GLUCOSE (AUTOMATED) 2023-02-08 18:15:[address] [facility] POCT GLUCOSE (AUTOMATED) 2023-02-08 13:22:[address] [facility] PHOSPHORUS 2023-02-08 10:05:00 Dee Desai [facility] MAGNESIUM 2023-02-08 10:05:00 [facility] (NA, K, CL, CO2, GLUCOSE, BUN, CREATININE, CA) 2023-02-08 10:05:00 Rudolph [facility] CBC WITH DIFF 2023-02-08 10:05:00 Rudolph raheem [facility] POCT GLUCOSE (AUTOMATED) 2023-02-08 01:10:[address] [facility] POCT GLUCOSE (AUTOMATED) 2023-02-07 23:01:[address] [facility] POCT GLUCOSE (AUTOMATED) 2023-02-07 13:43:00 Thompson Walker [facility] HB ECG ROUTINE & RHYTHM STRIP 2023-02-07 13:36:00 Yadiel Rogers [facility] MAGNESIUM 2023-02-07 09:22:00 [facility] BASIC METABOLIC PANEL (NA, K, CL, CO2, GLUCOSE, BUN, CREATININE, CA) 2023-02-07 09:22:00 Rudolph [facility] CBC WITH DIFF 2023-02-07 09:22:00 Rudolph [facility] POCT GLUCOSE (AUTOMATED) 2023-02-07 01:33:00 Denise [facility] POCT GLUCOSE (AUTOMATED) 2023-02-06 21:34:00 Denise [facility] POCT GLUCOSE (AUTOMATED) 2023-02-06 16:47:00 Denise [facility] HB ECG ROUTINE & RHYTHM STRIP 2023-02-06 13:01:[address] [facility] POCT GLUCOSE (AUTOMATED) 2023-02-06 12:44:00 Denise [facility] LUPUS ANTICOAGULANT REFLEXIVE PANEL 2023-02-06 11:01:00 Gianluca Araujo [facility] HEPATITIS B SURFACE ANTIBODY 2023-02-06 11:00:00 Rudolph [facility] HEPATITIS B SURFACE ANTIGEN 2023-02-06 11:00:00 Rudolph [facility] HBC ANTIBODY (IGM & IGG) 2023-02-06 11:00:00 Ann Gaviria [facility] ANTICARDIOLIPIN ANTIBODIES 2023-02-06 11:00:00 Ayaka Gaviria [facility] ANTI-B2 GLYCOPROTEIN I AB 2023-02-06 11:00:00 Jersey Gaviria [facility] HEPATITIS C VIRUS (HCV) BY QUANTITATIVE NAAT 2023-02-06 11:00:00 Rudolph [facility] ANTIPHOSPHOLIPID ANTIBODY EVALUATION-SST 2023-02-06 11:00:00 Rudolph [facility] MAGNESIUM 2023-02-06 10:59:00 Gaviria, Suyuan [facility] BASIC METABOLIC PANEL (NA, K, CL, CO2, GLUCOSE, BUN, CREATININE, CA) 2023-02-06 10:59:00 Rudolph [facility] CBC WITH DIFF 2023-02-06 10:59:00 [facility] POCT GLUCOSE (AUTOMATED) 2023-02-06 01:30:[address] [facility] POCT GLUCOSE (AUTOMATED) 2023-02-05 21:14:[address] [facility] NM MYOCARDIUM PERFUSION STRESS AND REST 2023-02-05 20:29:00 Denise [facility] POCT GLUCOSE (AUTOMATED) 2023-02-05 16:26:00 Denise [facility] RENAL ARTERY DUPLEX - BY VASCULAR LAB 2023-02-05 15:53:21 Denise [facility] UPPER EXTREMITY ARTERIAL DUPLEX BILATERAL - BY VASCULAR LAB 2023-02-05 15:53:16 Denise [facility] HB ECG ROUTINE & RHYTHM STRIP 2023-02-05 13:35:02 Yadiel Rogers [facility] POCT GLUCOSE (AUTOMATED) 2023-02-05 13:13:00 Thompson Walker lisa [facility] MAGNESIUM 2023-02-05 09:51:00 Ehtan Lau [facility] BASIC METABOLIC PANEL (NA, K, CL, CO2, GLUCOSE, BUN, CREATININE, CA) 2023-02-05 09:51:00 Ethan Lau [facility] POCT GLUCOSE (AUTOMATED) 2023-02-05 02:01:[address] [facility] POCT GLUCOSE (AUTOMATED) 2023-02-04 21:50:00 Denise [facility] POCT GLUCOSE (AUTOMATED) 2023-02-04 17:08:00 Denise [facility] HB ECG ROUTINE & RHYTHM STRIP 2023-02-04 13:43:37 Yadiel Rogers [facility] POCT GLUCOSE (AUTOMATED) 2023-02-04 12:42:00 Thompson Walker lisa [facility] MAGNESIUM 2023-02-04 09:41:00 Deborah Donahue [facility] BASIC METABOLIC PANEL (NA, K, CL, CO2, GLUCOSE, BUN, CREATININE, CA) 2023-02-04 09:41:00 Deborah Donahue [facility] CBC WITH DIFF 2023-02-04 09:41:00 Deborah Donahue [facility] POCT GLUCOSE (AUTOMATED) 2023-02-04 01:34:[address] [facility] POCT GLUCOSE (AUTOMATED) 2023-02-03 22:23:[address] [facility] ALDOSTERONE, SERUM 2023-02-03 21:50:00 Jaz Walker [facility] CORTISOL AM 2023-02-03 21:49:00 Jaz Walker [facility] POCT GLUCOSE (AUTOMATED) 2023-02-03 16:49:00 Denise [facility] POCT GLUCOSE (AUTOMATED) 2023-02-03 13:19:[address] [facility] ELECTROPHORESIS, SERUM 2023-02-03 10:05:00 Libra Landeros [facility] MAGNESIUM 2023-02-03 10:04:00 Libra Landeros [facility] BASIC METABOLIC PANEL (NA, K, CL, CO2, GLUCOSE, BUN, CREATININE, CA) 2023-02-03 10:04:00 Libra Landeros [facility] CBC WITHOUT DIFF 2023-02-03 10:04:00 Libra Landeros [facility] ANTI-NUCLEAR ANTIBODY SCREEN 2023-02-03 10:04:00 Ethan Lau [facility] ANTI-NUCLEAR ANTIBODY TITER 2023-02-03 10:04:00 Ethan Lau [facility] IMMUNOFIXATION, SERUM 2023-02-03 10:04:00 Ethan Lau [facility] ANTI-NUCLEAR ANTIBODY-PATHOLOGIST INTERPRETATION 2023-02-03 10:04:00 Ethan Lau [facility] POCT GLUCOSE (AUTOMATED) 2023-02-03 02:15:00 Thompson Walker [facility] POCT GLUCOSE (AUTOMATED) 2023-02-02 22:14:00 Denise Fat lisa [facility] POCT GLUCOSE (AUTOMATED) 2023-02-02 17:14:00 Thompson Walker lisa [facility] IMMUNOFIXATION, URINE FOR PANEL 2023-02-02 16:11:00 Ethan Lau [facility] ELECTROPHORESIS, SERUM 2023-02-02 16:11:00 Libra Landeros [facility] IMMUNOFIXATION, SERUM 2023-02-02 16:11:00 Ethan Lau [facility] HB ECG ROUTINE & RHYTHM STRIP 2023-02-02 12:48:22 Yadiel Rogers [facility] POCT GLUCOSE (AUTOMATED) 2023-02-02 12:36:00 Thompson Walker lisa [facility] MAGNESIUM 2023-02-02 09:00:00 Ethan Lau [facility] BASIC METABOLIC PANEL (NA, K, CL, CO2, GLUCOSE, BUN, CREATININE, CA) 2023-02-02 09:00:00 Ethan Lau [facility] CBC WITHOUT DIFF 2023-02-02 09:00:00 Ethan Lau [facility] POCT GLUCOSE (AUTOMATED) 2023-02-02 01:14:00 Thompson Walker lisa [facility] POCT GLUCOSE (AUTOMATED) 2023-02-01 21:58:[address] [facility] TRANSTHORACIC ECHO (TTE) COMPLETE W/ CONTRAST 2023-02-01 16:57:00 Yadiel Rogers [facility] POCT GLUCOSE (AUTOMATED) 2023-02-01 16:20:[address] [facility] HB ECG ROUTINE & RHYTHM STRIP 2023-02-01 13:16:[address] [facility] POCT GLUCOSE (AUTOMATED) 2023-02-01 12:50:00 Thompson Walker [facility] MAGNESIUM 2023-02-01 10:42:00 Libra Landeros [facility] BASIC METABOLIC PANEL (NA, K, CL, CO2, GLUCOSE, BUN, CREATININE, CA) 2023-02-01 10:42:00 Libra Landeros [facility] CBC WITHOUT DIFF 2023-02-01 10:42:00 Libra Landeros [facility] US RETROPERITONEAL LIMITED 2023-02-01 07:52:11 Yadiel Rogers [facility] MICROALBUMIN URINE 2023-02-01 05:17:00 Destin Barrett [facility] URINALYSIS 2023-02-01 05:17:00 Ethan Lau [facility] PROTEIN CREAT RATIO URINE RANDOM 2023-02-01 05:17:00 Ethan Lau [facility] UREA NITROGEN, URINE RANDOM 2023-02-01 05:17:00 Ethan Lau [facility] POCT GLUCOSE (AUTOMATED) 2023-02-01 01:48:00 Thompson Walker lisa [facility] POCT GLUCOSE (AUTOMATED) 2023-01-31 21:12:[address] [facility] POCT GLUCOSE (AUTOMATED) 2023-01-31 16:41:00 Thompson Walker lisa [facility] HB ECG ROUTINE & RHYTHM STRIP 2023-01-31 12:57:41 Yadiel Rogers [facility] POCT GLUCOSE (AUTOMATED) 2023-01-31 12:54:00 Thompson Walker [facility] MAGNESIUM 2023-01-31 08:53:00 [facility] TROPONIN I 2023-01-31 08:53:00 [facility] THYROID STIMULATING HORMONE 2023-01-31 08:53:00 Deborah Donahue [facility] BASIC METABOLIC PANEL (NA, K, CL, CO2, GLUCOSE, BUN, CREATININE, CA) 2023-01-31 08:53:00 Yadiel Rogers [facility] LIPID PANEL (00240)(TOTAL CHOLESTEROL, TRIGLYCERIDES, HDL) 2023-01-31 08:53:00 Ethan Lau [facility] CBC WITH DIFF 2023-01-31 08:53:00 Yadiel Rogers [facility] GLYCOSYLATED HEMOGLOBIN (A1C) 2023-01-31 08:53:00 Ethan Lau [facility] XR CHEST 2 VW 2023-01-30 23:58:54 [facility] (ID NOW RAPID TESTING) 2023-01-30 23:36:00 Micah Novoa [facility] LAB ONLY COVID INTERPRETATION 2023-01-30 23:36:00 Micah Novoa [facility] PHOSPHORUS 2023-01-30 23:33:00 Yadiel Rogers [facility] FERRITIN SERUM 2023-01-30 23:33:00 Yadiel Rogers [facility] TROPONIN I 2023-01-30 23:33:00 Micah Novoa [facility] FREE T4 2023-01-30 23:33:00 Deborah Donahue [facility] COMP. METABOLIC PANEL ([id number]) 2023-01-30 23:33:00 Micah Novoa [facility] IRON PANEL 2023-01-30 23:33:00 [facility] CBC WITH DIFF 2023-01-30 23:33:00 Micah Novoa [facility] N-TERMINAL PRO-BNP 2023-01-30 23:33:00 Micah Novoa [facility] EKG-12 LEAD 2023-01-30 23:15:54 Gianluca Araujo [facility] NOTICE OF PRIVACY PRACTICES 2023-01-30 23:05:03 Doctor Unassigned, Mucarabones [facility] CONSENT/REFUSAL FOR DIAGNOSIS AND TREATMENT 2023-01-30 23:04:08 Doctor Unassigned, Mucarabones [facility] HOSPITAL ADMISSION 2023-01-30 05:01:00 Doctor Un assigned, Mucarabones [facility] Ekg W/ At Least 12 Leads W/ I r 2021-12-17 00:00:00 POCT GLUCOSE (AUTOMATED) 2021-07-08 16:44:00 Winnie Villatoro [facility] POCT GLUCOSE (AUTOMATED) 2021-07-08 16:44:00 Winnie Villatoro [facility] POCT GLUCOSE (AUTOMATED) 2021-07-08 12:35:00 Winnie Villatoro [facility] POCT GLUCOSE (AUTOMATED) 2021-07-08 12:35:00 Winnie Villatoro [facility] POCT GLUCOSE (AUTOMATED) 2021-07-07 22:13:00 Winnie Villatoro [facility] POCT GLUCOSE (AUTOMATED) 2021-07-07 22:13:00 Winnie Villatoro [facility] POCT GLUCOSE (AUTOMATED) 2021-07-07 16:41:00 Winnie Villatoro [facility] POCT GLUCOSE (AUTOMATED) 2021-07-07 16:41:00 Winnie Villatoro [facility] POCT GLUCOSE (AUTOMATED) 2021-07-07 14:52:00 Winnie Villatoro [facility] POCT GLUCOSE (AUTOMATED) 2021-07-07 14:52:00 Winnie Villatoro [facility] CLOSURE SURGICAL WOUND LOWER EXTREMITY 2021-07-07 12:40:00 Nomi Robles [facility] CLOSURE SURGICAL WOUND LOWER EXTREMITY 2021-07-07 12:40:00 Nomi Robles [facility] POCT GLUCOSE (AUTOMATED) 2021-07-07 12:20:00 Gm De Los Santos [facility] POCT GLUCOSE (AUTOMATED) 2021-07-07 12:20:00 Gm De Los Santos [facility] BASIC METABOLIC PANEL (NA, K, CL, CO2, GLUCOSE, BUN, CREATININE, CA) 2021-07-07 10:27:00 Madie Orozco [facility] CBC WITH DIFF 2021-07-07 10:27:00 Madie Orozco [facility] BASIC METABOLIC PANEL (NA, K, CL, CO2, GLUCOSE, BUN, CREATININE, CA) 2021-07-07 10:27:00 Madie Orozco [facility] CBC WITH DIFF 2021-07-07 10:27:00 Madie Orozco [facility] POCT GLUCOSE (AUTOMATED) 2021-07-07 05:05:00 Magali suly [facility] POCT GLUCOSE (AUTOMATED) 2021-07-07 05:05:00 [facility] PO[facility] GLUCOSE (AUTOMATED) 2021-07-06 21:32:00 [facility] POCT GLUCOSE (AUTOMATED) 2021-07-06 21:32:00 [facility] CBC WITH DIFF 2021-07-06 18:42:00 Nomi Robles [facility] CBC WITH DIFF 2021-07-06 18:42:00 Nomi Robles [facility] CBC WITH DIFF 2021-07-06 18:42:00 Nomi Robles [facility] POCT GLUCOSE (AUTOMATED) 2021-07-06 16:30:00 Magali suly [facility] POCT GLUCOSE (AUTOMATED) 2021-07-06 16:30:00 [facility] POCT GLUCOSE (AUTOMATED) 2021-07-06 16:30:00 [facility] VANCOMYCIN TROUGH 2021-07-06 15:35:00 Rebecca Lazo [facility] VANCOMYCIN TROUGH 2021-07-06 15:35:00 Rebecca Lazo [facility] VANCOMYCIN TROUGH 2021-07-06 15:35:00 Rebecca Lazo [facility] POCT GLUCOSE (AUTOMATED) 2021-07-06 12:37:00 [facility] POCT GLUCOSE (AUTOMATED) 2021-07-06 12:37:00 [facility] POCT GLUCOSE (AUTOMATED) 2021-07-06 12:37:00 [facility] COMP. METABOLIC PANEL ([id number]) 2021-07-06 11:07:00 [facility] COMP. METABOLIC PANEL ([id number]) 2021-07-06 11:07:00 Magali Adnan [facility] COMP. METABOLIC PANEL ([id number]) 2021-07-06 11:07:00 Gm De Los Santos [facility] SURGICAL PATHOLOGY EXAM 2021-07-05 23:42:00 Kayliepeggy Hector [place] [facility] SURGICAL PATHOLOGY EXAM 2021-07-05 23:42:00 Kayliepeggy Hector [place] [facility] TOE AMPUTATION 2021-07-05 22:59:00 [facility] 2021-07[facility]05 22:59:00 Travis [facility] GLUCOSE (AUTOMATED) 2021-07-05 20:33:00 [facility] POCT GLUCOSE (AUTOMATED) 2021-07-05 20:33:00 [facility] POCT GLUCOSE (AUTOMATED) 2021-07-05 20:33:00 [facility] POCT GLUCOSE (AUTOMATED) 2021-07-05 16:17:00 [facility] POCT GLUCOSE (AUTOMATED) 2021-07-05 16:17:00 [facility] POCT GLUCOSE (AUTOMATED) 2021-07-05 16:17:00 [facility] MR FOOT RIGHT W WO CONTRAST 2021-07-05 14:37:38 Dianna [facility] MR FOOT RIGHT W WO CONTRAST 2021-07-05 14:37:38 Dianna [facility] MR FOOT RIGHT W WO CONTRAST 2021-07-05 14:37:38 Dianna Jt [facility] POCT GLUCOSE (AUTOMATED) 2021-07-05 12:12:00 Magali suly [facility] POCT GLUCOSE (AUTOMATED) 2021-07-05 12:12:00 [facility] POCT GLUCOSE (AUTOMATED) 2021-07-05 12:12:00 Magali suly [facility] MAGNESIUM 2021-07-05 10:00:00 Gm De Los Santos [facility] COMP. METABOLIC PANEL ([id number]) 2021-07-05 10:00:00 [facility] CBC WITH DIFF 2021-07-05 10:00:00 [facility] N-TERMINAL PRO-BNP 2021-07-05 10:00:00 [facility] MAGNESIUM 2021-07-05 10:00:00 Gm De Los Santos [facility] COMP. METABOLIC PANEL ([id number]) 2021-07-05 10:00:00 [facility] CBC WITH DIFF 2021-07-05 10:00:00 [facility] N-TERMINAL PRO-BNP 2021-07-05 10:00:00 [facility] MAGNESIUM 2021-07-05 10:00:00 Gm De Los Santos [facility] COMP. METABOLIC PANEL ([id number]) 2021-07-05 10:00:00 [facility] CBC WITH DIFF 2021-07-05 10:00:00 [facility]m [facility] N-TERMINAL PRO-BNP 2021-07-05 10:00:00 [facility] POCT GLUCOSE (AUTOMATED) 2021-07-05 00:13:00 [facility] POCT GLUCOSE (AUTOMATED) 2021-07-05 00:13:00 [facility] POCT GLUCOSE (AUTOMATED) 2021-07-05 00:13:00 [facility] POCT GLUCOSE (AUTOMATED) 2021-07-04 21:21:00 [facility] POCT GLUCOSE (AUTOMATED) 2021-07-04 21:21:00 [facility] POCT GLUCOSE (AUTOMATED) 2021-07-04 21:21:00 [facility] WOUND CULTURE 2021-07-04 19:28:00 Jo-Ann King [facility] WOUND CULTURE 2021-07-04 19:28:00 Jo-Ann King [facility] WOUND CULTURE 2021-07-04 19:28:00 Jo-Ann King [facility] POCT GLUCOSE (AUTOMATED) 2021-07-04 16:26:00 [facility] POCT GLUCOSE (AUTOMATED) 2021-07-04 16:26:00 [facility] POCT GLUCOSE (AUTOMATED) 2021-07-04 16:26:00 [facility] VANCOMYCIN TROUGH 2021-07-04 15:39:00 Gm De Los Santos [facility] VANCOMYCIN TROUGH 2021-07-04 15:39:00 Magali [facility] VANCOMYCIN TROUGH 2021-07-04 15:39:00 Magali [facility] POCT GLUCOSE (AUTOMATED) 2021-07-04 12:21:00 [facility] POCT GLUCOSE (AUTOMATED) 2021-07-04 12:21:00 [facility] POCT GLUCOSE (AUTOMATED) 2021-07-04 12:21:00 [facility] PHOSPHORUS 2021-07-04 10:12:00 Magali suly [facility] MAGNESIUM 2021-07-04 10:12:00 Magali [facility] COMP. METABOLIC PANEL ([id number]) 2021-07-04 10:12:00 [facility] CBC WITH DIFF 2021-07-04 10:12:00 Gm De Los Santos [facility] N-TERMINAL PRO-BNP 2021-07-04 10:12:00 [facility] PHOSPHORUS 2021-07-04 10:12:00 Magali suly [facility] MAGNESIUM 2021-07-04 10:12:00 Magali [facility] COMP. METABOLIC PANEL ([id number]) 2021-07-04 10:12:00 [facility] CBC WITH DIFF 2021-07-04 10:12:00 Gm De Los Santos [facility] N-TERMINAL PRO-BNP 2021-07-04 10:12:00 Magali suly [facility] PHOSPHORUS 2021-07-04 10:12:00 Gm De Los Santos [facility] MAGNESIUM 2021-07-04 10:12:00 Magali suly [facility] COMP. METABOLIC PANEL ([id number]) 2021-07-04 10:12:00 [facility] CBC WITH DIFF 2021-07-04 10:12:00 [facility] N-TERMINAL PRO-BNP 2021-07-04 10:12:00 [facility] POCT GLUCOSE (AUTOMATED) 2021-07-04 00:24:00 [facility] POCT GLUCOSE (AUTOMATED) 2021-07-04 00:24:00 [facility] POCT GLUCOSE (AUTOMATED) 2021-07-04 00:24:00 [facility] POCT GLUCOSE (AUTOMATED) 2021-07-03 21:30:00 [facility] POCT GLUCOSE (AUTOMATED) 2021-07-03 21:30:00 [facility] POCT GLUCOSE (AUTOMATED) 2021-07-03 21:30:00 [facility] POCT GLUCOSE (AUTOMATED) 2021-07-03 16:19:00 [facility] POCT GLUCOSE (AUTOMATED) 2021-07-03 16:19:00 [facility] POCT GLUCOSE (AUTOMATED) 2021-07-03 16:19:00 [facility] VITAMIN B12, LEVEL 2021-07-03 14:59:00 [facility] C-REACTIVE PROTEIN 2021-07-03 14:59:00 Gm De Los Santos [facility] VITAMIN D, 25-OH 2021-07-03 14:59:00 Gm De Los Santos [facility] VITAMIN B12, LEVEL 2021-07-03 14:59:00 [facility] C-REACTIVE PROTEIN 2021-07-03 14:59:00 Gm De Los Santos [facility] VITAMIN D, 25-OH 2021-07-03 14:59:00 Gm De Los Santos [facility] VITAMIN B12, LEVEL 2021-07-03 14:59:00 Gm De Los Santos [facility] C-REACTIVE PROTEIN 2021-07-03 14:59:00 [facility] V[facility] D, 25-OH 2021-07-03 14:59:00 Gm De Los Santos [facility] IRON PANEL 2021-07-03 14:58:00 Gm De Los Santos [facility] PROCALCITONIN 2021-07-03 14:58:00 Gm De Los Santos [facility] IRON PANEL 2021-07-03 14:58:00 Gm De Los Santos [facility] PROCALCITONIN 2021-07-03 14:58:00 Gm De Los Santos [facility] IRON PANEL 2021-07-03 14:58:00 Gm De Los Santos [facility] PROCALCITONIN 2021-07-03 14:58:00 [facility] PROTHROMBIN TIME / INR 2021-07-03 14:57:00 Lasha De Los Santos [facility] PROTHROMBIN TIME / INR 2021-07-03 14:57:00 Lasha De Los Santos [facility] PROTHROMBIN TIME / INR 2021-07-03 14:57:00 Lasha De Los Santos [facility] CT FOOT RIGHT W CONTRAST 2021-07-03 14:46:22 Gm De Los Santos [facility] CT FOOT RIGHT W CONTRAST 2021-07-03 14:46:22 [facility] FOOT RIGHT W CONTRAST 2021-07-03 14:46:22 [facility] LOWER EXTREMITY ARTERIAL DUPLEX BILATERAL - BY VASCULAR LAB 2021-07-03 14:14:20 [facility] LOWER EXTREMITY ARTERIAL DUPLEX BILATERAL - BY VASCULAR LAB 2021-07-03 14:14:20 [facility] LOWER EXTREMITY ARTERIAL DUPLEX BILATERAL - BY VASCULAR LAB 2021-07-03 14:14:20 [facility] DUPLEX VENOUS LEGS BILATERAL - BY VASCULAR LAB 2021-07-03 14:14:15 [facility] DUPLEX VENOUS LEGS BILATERAL - BY VASCULAR LAB 2021-07-03 14:14:15 [facility] DUPLEX VENOUS LEGS BILATERAL - BY VASCULAR LAB 2021-07-03 14:14:15 [facility] POCT GLUCOSE (AUTOMATED) 2021-07-03 12:36:00 [facility] POCT GLUCOSE (AUTOMATED) 2021-07-03 12:36:00 [facility] POCT GLUCOSE (AUTOMATED) 2021-07-03 12:36:00 [facility] URINALYSIS 2021-07-03 06:43:00 Wong Santo [facility] URINE CULTURE 2021-07-03 06:43:00 Wong Santo [facility] URINALYSIS 2021-07-03 06:43:00 Wong Santo [facility] URINE CULTURE 2021-07-03 06:43:00 Wong Santo [facility] URINALYSIS 2021-07-03 06:43:00 Wong Santo [facility] URINE CULTURE 2021-07-03 06:43:00 Wong Santo [facility] LACTIC ACID WHOLE BLOOD 2021-07-03 06:15:00 Wong Santo [facility] LACTIC ACID WHOLE BLOOD 2021-07-03 06:15:00 Wong Santo [facility] LACTIC ACID WHOLE BLOOD 2021-07-03 06:15:00 Wong Santo [facility] XR FOOT 3+ VW RIGHT 2021-07-03 06:08:43 Wong Santo [facility] XR FOOT 3+ VW RIGHT 2021-07-03 06:08:43 Wong Santo [facility] XR FOOT 3+ VW RIGHT 2021-07-03 06:08:43 Wong Santo [facility] PHOSPHORUS 2021-07-03 05:59:00 Gm De Los Santos [facility] CREATINE KINASE 2021-07-03 05:59:00 Gm De Los Santos [facility] URIC ACID 2021-07-03 05:59:00 Gm De Los Santos [facility] MAGNESIUM 2021-07-03 05:59:00 Gm De Los Santos [facility] FERRITIN SERUM 2021-07-03 05:59:00 Gm De Los Santos [facility] TROPONIN I 2021-07-03 05:59:00 Wong Santo [facility] THYROID STIMULATING HORMONE 2021-07-03 05:59:00 Gm De Los Santos [facility] COMP. METABOLIC PANEL ([id number]) 2021-07-03 05:59:00 Wong Santo [facility] LIPID PANEL ([id number])(TOTAL CHOLESTEROL, TRIGLYCERIDES, HDL) 2021-07-03 05:59:00 Gm De Los Santos [facility] SEDIMENTATION RATE 2021-07-03 05:59:00 Gm De Los Santos [facility] CBC WITH DIFF 2021-07-03 05:59:00 Wong Santo [facility] GLYCOSYLATED HEMOGLOBIN (A1C) 2021-07-03 05:59:00 Gm De Los Santos [facility] N-TERMINAL PRO-BNP 2021-07-03 05:59:00 [facility] PHOSPHORUS 2021-07-03 05:59:00 Magali suly [facility] CREATINE KINASE 2021-07-03 05:59:00 Gm De Los Santos [facility] URIC ACID 2021-07-03 05:59:00 Gm De Los Santos [facility] MAGNESIUM 2021-07-03 05:59:00 Magali [facility] FERRITIN SERUM 2021-07-03 05:59:00 Magali [facility] TROPONIN I 2021-07-03 05:59:00 Wong [facility] THYROID STIMULATING HORMONE 2021-07-03 05:59:00 [facility] COMP. METABOLIC PANEL (78947) 2021-07-03 05:59:00 Wong Santo [facility] LIPID PANEL (09074)(TOTAL CHOLESTEROL, TRIGLYCERIDES, HDL) 2021-07-03 05:59:00 [facility] SEDIMENTATION RATE 2021-07-03 05:59:00 [facility] CBC WITH DIFF 2021-07-03 05:59:00 Wong Santo [facility] GLYCOSYLATED HEMOGLOBIN (A1C) 2021-07-03 05:59:00 [facility] N-TERMINAL PRO-BNP 2021-07-03 05:59:00 [facility] PHOSPHORUS 2021-07-03 05:59:00 [facility] CREATINE KINASE 2021-07-03 05:59:00 Gm De Los Santos [facility] URIC ACID 2021-07-03 05:59:00 Mag[facility] MAGNESIUM 2021-07-03 05:59:00 [facility] FERRITIN SERUM 2021-07-03 05:59:00 [facility] TROPONIN I 2021-07-03 05:59:00 Wong [facility]anto [facility] THYROID STIMULATING HORMONE 2021-07-03 05:59:00 [facility] COMP. METABOLIC PANEL (34145) 2021-07-03 05:59:00 Wong Santo [facility] LIPID PANEL (57720)(TOTAL CHOLESTEROL, TRIGLYCERIDES, HDL) 2021-07-03 05:59:00 [facility] SEDIMENTATION RATE 2021-07-03 05:59:00 [facility] CBC WITH DIFF 2021-07-03 05:59:00 Wong [facility]anto [facility] GLYCOSYLATED HEMOGLOBIN (A1C) 2021-07-03 05:59:00 [facility] N-TERMINAL PRO-BNP 2021-07-03 05:59:00 [facility] BLOOD CULTURE SCREEN 2021-07-03 05:58:00 Wong Santo [facility] COVID-19 (ID NOW RAPID TESTING) 2021-07-03 05:58:00 Wong Santo Stephanie [facility] LAB ONLY COVID INTERPRETATION 2021-07-03 05:58:00 Wong aSnto [facility] BLOOD CULTURE SCREEN 2021-07-03 05:58:00 Wong Santo [facility] COVID-19 (ID NOW RAPID TESTING) 2021-07-03 05:58:00 Wong Santo [facility] LAB ONLY COVID INTERPRETATION 2021-07-03 05:58:00 Wong Santo [facility] BLOOD CULTURE SCREEN 2021-07-03 05:58:00 Wong Santo [facility] COVID-19 (ID NOW RAPID TESTING) 2021-07-03 05:58:00 Wong Santo [facility] LAB ONLY COVID INTERPRETATION 2021-07-03 05:58:00 Wong Santo [facility] EKG-12 LEAD 2021-07-03 05:40:45 [facility] EKG-12 LEAD 2021-07-03 05:40:45 Magali, Lashasuly [facility] EKG-12 LEAD 2021-07-03 05:40:45 Gm De Los Santos [facility] NOTICE OF PRIVACY PRACTICES 2021-07-03 05:30:04 Doctor Unassigned, Mucarabones [facility] NOTICE OF PRIVACY PRACTICES 2021-07-03 05:30:04 Doctor Unassigned, Mucarabones [facility] NOTICE OF PRIVACY PRACTICES 2021-07-03 05:30:04 Doctor Unassigned, Mucarabones [facility] CONSENT/REFUSAL FOR DIAGNOSIS AND TREATMENT 2021-07-03 05:29:41 Doctor Unassigned, Mucarabones [facility] CONSENT/REFUSAL FOR DIAGNOSIS AND TREATMENT 2021-07-03 05:29:41 Doctor Unassigned, Mucarabones [facility] CONSENT/REFUSAL FOR DIAGNOSIS AND TREATMENT 2021-07-03 05:29:41 Doctor Unassigned, Mucarabones [facility] [address]96 Ecg Routine Ecg W/least 12 Lds W/i r 2017-01-04 00:00:00 Plan of Care Planned Activity Planned Date Details Comments Source Goal Plan of Care Note [code = 32291-9] Goal Plan of Care Note [code = 03133-3] Goal Plan of Care Note [code = 48884-0] Goal Plan of Care Note [code = 82029-6] Goal Plan of Care Note [code = 80141-3] Goal Plan of Care Note [code = 36741-4] Goal Plan of Care Note [code = 84509-3] Goal Plan of Care Note [code = 38345-1] Goal Plan of Care Note [code = 98503-0] Goal Plan of Care Note [code = 21304-4] Goal Plan of Care Note [code = 34736-0] Goal Plan of Care Note [code = 00646-0] Goal Plan of Care Note [code = 68691-6] Goal Plan of Care Note [code = 12005-2] Goal Plan of Care Note [code = 70038-2] Goal Plan of Care Note [code = 62242-2] Goal Plan of Care Note [code = 18214-8] Goal Plan of Care Note [code = 70793-6] Goal Plan of Care Note [code = 33498-9] Goal Plan of Care Note [code = 69650-2] Goal Plan of Care Note [code = 07801-4] Goal Plan of Care Note [code = 77633-2] Goal Plan of Care Note [code = 26427-5] Goal Plan of Care Note [code = 31913-7] Goal Plan of Care Note [code = 56195-3] Goal Plan of Care Note [code = 58557-9] Goal Plan of Care Note [code = 12158-4] Goal Plan of Care Note [code = 22028-9] Goal Plan of Care Note [code = 81332-0] Goal Plan of Care Note [code = 64039-7] Goal Plan of Care Note [code = 13359-4] Goal Plan of Care Note [code = 46917-2] Goal Plan of Care Note [code = 57303-4] Goal Plan of Care Note [code = 01580-9] Encounters Start Date/Time End Date/Time Encounter Type Admission Type Attending [facility] Care Department Encounter ID Source 2024-08-19 08:30:00 2024-08-19 08:30:00 Outpatient MARQUES THOMAS [id number] [facility] 2024-06-05 00:00:00 2024-06-05 00:00:00 Outpatient MARQUES THOMAS [id number] [facility] 2024-06-05 00:00:00 2024-06-05 00:00:00 Outpatient MARQUES THOMAS [id number] [facility] 2024-05-28 00:00:00 2024-05-28 00:00:00 Outpatient MARQUES THOMAS [id number] [facility] 2024-05-28 00:00:00 2024-05-28 00:00:00 Outpatient MALACHI MICHELLE [id number] [facility] 2024-05-20 00:00:00 2024-05-20 00:00:00 Outpatient MARQUES THOMAS [id number] [facility] 2024-05-19 14:30:00 2024-05-19 14:30:00 Outpatient GUILLE SONIA ALCALA [id number] [facility] 2024-05-19 13:45:00 2024-05-19 13:45:00 Outpatient MALACHI MICHELLE SONIA ALCALA [id number] [facility] 2024-05-12 14:00:00 2024-05-12 14:00:00 Outpatient MARQUES THOMAS SONIA ALCALA [id number] [facility] 2024-05-05 15:15:00 2024-05-05 15:15:00 Outpatient PREMARIA ELENA MARQUES ALCALA [id number] [facility] 2024-04-17 14:10:00 2024-04-17 14:10:00 Outpatient BEATA CHEN [id number] [facility] 2024-03-20 15:15:00 2024-03-20 15:15:00 Outpatient MARQUES THOMAS [facility]ONIA ALCAL[facility] [id number] [facility] 2024-03-19 09:30:00 2024-03-19 09:30:00 Outpatient CARLEE CARRILLO [id number] [facility] 2024-03-17 08:00:00 2024-03-17 08:00:00 Outpatient QUINN GAVIRIA [id number] [facility] 2024-03-17 00:00:00 2024-03-17 00:00:00 Outpatient JOAN STACY [id number] [facility] 2024-03-11 00:00:00 2024-03-11 00:00:00 Outpatient DEE JENNIFER [facility]CAL[facility] [id number] [facility]24-03-10 14:25:00 2024-03-10 14:25:00 Outpatient [facility] [id number] [facility] 2024-02-28 07:30:00 2024-02-28 07:30:00 Outpatient SONIA ALCALA [id number] [facility] 2024-02-22 00:00:00 2024-02-22 00:00:00 Outpatient MARQUES THOMAS SNOIA [id number] [facility] 2024-02-21 00:00:00 2024-02-21 00:00:00 Outpatient MARQUES THOMAS SONIA [id number] [facility] 2024-02-20 08:15:00 2024-02-20 08:15:00 Outpatient SONIA SONIA [id number] [facility] 2024-02-18 08:00:00 2024-02-18 08:00:00 Outpatient LAB90 SONIA SONIA [id number] [facility] 2024-02-15 08:25:00 2024-02-15 08:25:00 Outpatient LAB90 SONIA SONIA [id number] [facility] 2024-02-15 00:00:00 2024-02-15 00:00:00 Outpatient SONIA ALCALA [id number] [facility] 2024-02-15 00:00:00 2024-02-15 00:00:00 Outpatient SONIA SONIA [id number] [facility] 2024-02-15 00:00:00 2024-02-15 00:00:00 Outpatient SONIA SONIA [id number] [facility] 2024-02-15 00:00:00 2024-02-15 00:00:00 Outpatient SONIA ALCALA [id number] [facility] 2024-02-15 00:00:00 2024-02-15 00:00:00 Outpatient SONIA ALCALA [id number] [facility] 2024-02-15 00:00:00 2024-02-15 00:00:00 Outpatient JENNIFER PRICE [id number] [facility] 2024-02-14 13:30:00 2024-02-14 13:30:00 Outpatient FELIPA CALHOUN [id number] [facility] 2024-02-14 13:30:00 2024-02-14 13:30:00 Outpatient 39, HOLTER SONIA ALCALA [id number] [facility] 2024-02-14 00:00:00 2024-02-14 00:00:00 Outpatient JENNIFER PRICE SONIA ALCALA [id number] [facility] 2024-02-14 00:00:00 2024-02-14 00:00:00 Outpatient SONIA ALCALA [id number] [facility] 2024-02-05 16:00:00 2024-02-05 16:00:00 Outpatient SONIA ALCALA [id number] [facility] 2024-02-04 00:00:00 2024-02-04 00:00:00 Outpatient PREZARuddy, MARQUES SONIA ALCAL[facility] [id number] [facility] 2024-02-01 08:40:00 2024-02-01 08:40:00 Outpatient LAB90 SONIA ALCALA [id number] [facility] 2024-01-31 10:40:00 2024-01-31 10:40:00 Outpatient 39, HOLTER SONIA ALCALA [id number] [facility] 2024-01-31 10:15:00 2024-01-31 10:15:00 Outpatient FELIPA CALHOUN SONIA ALCALA [id number] [facility] 2024-01-30 11:30:00 2024-01-30 11:30:00 Outpatient PREZAS, MARQUES SONIA ALCALA [id number] [facility] 2024-01-30 00:00:00 2024-01-30 00:00:00 Outpatient PREZAS, MARQUES SONIA ALCALA [id number] [facility] 2024-01-29 10:45:00 2024-01-29 10:45:00 Outpatient SONIA ALCALA [id number] [facility] 2024-01-28 00:00:00 2024-01-28 00:00:00 Outpatient PREZAS, MARQUESJENI ALCALA [id number] [facility] 2024-01-24 00:00:00 2024-01-24 00:00:00 Outpatient PREZAS, MARQUESJENI ALCALA [id number] [facility] 2024-01-11 00:00:00 2024-01-11 00:00:00 Outpatient PREZAS MARQUES ALCALA SONIA [id number] [facility] 2024-01-02 11:30:00 2024-01-02 11:30:00 Outpatient PREZAS, MARQUES ALCALA SONIA [id number] [facility] 2024-01-02 00:00:00 2024-01-02 00:00:00 Outpatient PREZAS, MARQUES ALCALA SONIA [id number] [facility] 2023-12-28 00:00:00 2023-12-28 00:00:00 Outpatient PREZAS, MARQUES ALCALA SONIA [id number] [facility] 2023-12-18 00:00:00 2023-12-18 00:00:00 Outpatient PREZAS, MARQUES SONIA ALCALA [id number] [facility] 2023-12-12 16:30:00 2023-12-12 16:30:00 Outpatient SONIA ALCALA [id number] [facility] 2023-12-08 00:00:00 2023-12-08 00:00:00 Outpatient PREZAS, MARQUES ALCALA SONIA [id number] [facility] 2023-11-30 11:45:00 2023-11-30 11:45:00 Outpatient PREZAS, MARQUES SONIA ALCALA [id number] [facility] 2023-11-19 00:00:00 2023-11-19 00:00:00 Outpatient PREZAS, MARQUES SONIA ALCALA [id number] [facility] 2023-11-19 00:00:00 2023-11-19 00:00:00 Outpatient PREZAS, MARQUES SONIA ALCALA [id number] [facility] 2023-11-16 09:05:00 2023-11-16 09:05:00 Outpatient LABRonald ALCALA [id number] [facility] 2023-11-16 08:15:00 2023-11-16 08:15:00 Outpatient PREZAS, MARQUES SONIA ALCALA [id number] [facility] 2023-10-24 14:15:00 2023-10-24 14:15:00 Outpatient PREZAS, MARQUES SONIA ALCALA [id number] [facility] 2023-09-17 00:00:00 2023-09-17 00:00:00 Outpatient PREZAS, MARQUES ALCALA [id number] [facility] 2023-08-31 00:00:00 2023-08-31 00:00:00 Outpatient PREZAS, MARQUES LOCKHARTSEY [id number] [facility] 2023-08-09 00:00:00 2023-08-09 00:00:00 Outpatient PREZAS, MARQUES ALCALA [id number] [facility] 2023-07-19 00:00:00 2023-07-19 00:00:00 Outpatient PREZAS, MARQUES ALCALA SONIA [id number] [facility] 2023-07-08 00:00:00 2023-07-08 00:00:00 Outpatient PREZAS, MARQUES ALCALA SONIA [id number] [facility] 2023-07-05 00:00:00 2023-07-05 00:00:00 Outpatient PREZAS, MARQUES LOCKHARTSEY [id number] [facility] 2023-05-15 09:54:00 2023-05-15 09:54:00 Outpatient SFA SFA [id number] Francisco Foster 2023-05-08 14:38:20 2023-05-08 14:38:20 Outpatient SFA SFA [id number] Francisco Foster 2023-04-13 00:00:00 2023-04-13 00:00:00 Outpatient PREZAS, MARQUES ALCALA SONIA [id number] [facility] 2023-04-10 00:00:00 2023-04-10 00:00:00 Outpatient PREZAS, MARQUES SONIA ALCALA [id number] [facility] 2023-04-02 00:00:00 2023-04-02 00:00:00 Outpatient PREZAS, MARQUES SONIA ALCALA [id number] [facility] 2023-03-26 16:45:00 2023-03-26 16:45:00 Outpatient PREZAS, MARQUES SONIA ALCALA [id number] [facility] 2023-03-26 00:00:00 2023-03-26 00:00:00 Outpatient PREZASMARQUES [id number] [facility] 2023-03-22 00:00:00 2023-03-22 00:00:00 Outpatient PREZAS, MARQUES ALCALA [id number] [facility] 2023-03-22 00:00:00 2023-03-22 00:00:00 Outpatient PREZAS, MARQUES ALCALA [id number] [facility] 2023-03-20 08:05:00 2023-03-20 08:05:00 Outpatient LAB90 SONIA ALCALA [id number] [facility] 2023-03-19 09:00:00 2023-03-19 09:00:00 Outpatient PREZAS, MARQUES ALCALA [id number] [facility] 2023-02-12 00:00:00 2023-02-12 00:00:00 Transition of Care Rebecca Holloway ESCUDERO PLAKARLA [id number] [id number] [id number] [id number] [facility] 2023-01-30 18:09:00 2023-02-09 15:20:00 Inpatient U JOAN FAGAN [facility] [id number] [facility] 2023-01-30 18:09:00 2023-02-09 15:20:00 Hospital Encounter Bright, Micah Walker, Jaz Araujo, Joan Lubin [facility] [id number] [id number] 4.2.7.2.686 [id number] [facility] 2023-02-09 00:00:00 2023-02-09 00:00:00 Refill Ken [facility] 1.2840.114 350.1.13.10 4.2.7.2.686 [id number] [facility] 2023-02-02 14:45:00 2023-02-02 14:45:00 Outpatient PREZAS, MARQUES ALCALA SONIA [id number] [facility] 2023-01-29 00:00:00 2023-01-29 00:00:00 Outpatient PREZAS, MARQUES SONIA ALCALA [id number] [facility] 2023-01-08 14:45:00 2023-01-08 14:45:00 Outpatient PREZAS, MARQUES SONIA SONIA [id number] [facility] 2022-12-28 15:15:00 2022-12-28 15:15:00 Outpatient SONIA ALCALA [id number] [facility] 2022-12-21 15:15:00 2022-12-21 15:15:00 Outpatient SONIA ALCALA [id number] [facility] 2022-12-21 13:45:00 2022-12-21 13:45:00 Outpatient PREZAS, MARQUES SONIA ALCALA [id number] [facility] 2022-12-18 00:00:00 2022-12-18 00:00:00 Outpatient PREZAS, MARQUES SONIA ALCALA [id number] [facility] 2022-12-13 10:00:00 2022-12-13 10:00:00 Outpatient PREZAS, MARQUES SONIA ALCALA [id number] [facility] 2022-12-06 14:30:00 2022-12-06 14:30:00 Outpatient PREZAS, MARQUSE SONIA ALCALA [id number] [facility] 2022-12-06 14:30:00 2022-12-06 14:30:00 Outpatient PREZAS, MARQUES SONIA ALCALA [id number] [facility] 2022-12-06 11:15:00 2022-12-06 11:15:00 Outpatient PREZAS, MARQUES SONIA ALCALA [id number] [facility] 2022-11-22 08:00:00 2022-11-22 08:00:00 Outpatient HUNDL, TRAVIS SONIA ALCALA [id number] [facility] 2022-09-25 17:44:22 2022-09-25 17:44:22 Outpatient SFA [facility] 1219 Francisco Foster 2022-09-14 09:47:26 2022-09-14 09:47:26 Outpatient [facility] [id number] Francisco Foster 2022-09-09 11:01:13 2022-09-09 11:01:13 Outpatient SFA [facility] [id number] Francisco Foster 2022-09-09 00:00:00 2022-09-09 00:00:00 Outpatient Visit [id number] 00:00:00 2022-06-13 00:00:00 Outpatient Visit [id number] 2021-07-11 00:00:00 2021-07-11 00:00:00 Transition of Care Aurora Goins [id number] 350.1.13.10 4.2.7.2.686 [id number] [facility] 2021-07-03 00:38:00 2021-07-08 12:55:00 Hospital Encounter Wong Santo Adnan Oville, Jelani [facility] 1.2840.114 350.1.13.10 4.2.7.2.686 [id number] [facility] 2021-07-07 07:30:00 2021-07-07 09:15:00 Surgery Nomi Robles [facility] 1.2840.114 350.1.13.10 4.2.7.2.686 [id number] [facility] 2021-07-05 17:20:00 2021-07-05 18:24:00 Surgery Nomi Robles [facility] [id number] 350.1.13.10 4.2.7.2.686 [id number] [facility] 2021-07-03 00:27:00 2021-07-03 00:27:00 Emergency X [facility] ERT [id number] [facility] Results Test Description Test Time Test Comments Results Result Co mments Source [facility] GLUCOSE (AUTOMATED)2023-02-09 12:43:00* Test Item Value Reference Range Interpretation Comme nts POCT GLU (test code = 1670672552) 120 mg/dL 70-110 H Lab Interpretation (test cod e = 21054-7) [facility]09 01:28:05* Test Item Value Reference Range Interpretation Comme nts POCT GLU (test code = 7904763255) 267 mg/dL 70-110 H Lab Interpretation (test cod e = 15936-6) [facility]2023-02-08 22:01:26* Test Item Value Reference Range Interpretation Comme nts POCT GLU (test code = 4725841097) 217 mg/dL 70-110 H Lab Interpretation (test cod e = 01224-0) [facility]2023-02-08 18:16:43* Test Item Value Reference Range Interpretation Comme nts POCT GLU (test code = 5651928543) 129 mg/dL 70-110 H Lab Interpretation (test cod e = 57547-1) [facility]2023-02-08 13:23:22* Test Item Value Reference Range Interpretation Comme nts POCT GLU (test code = 4771836764) 125 mg/dL 70-110 H Lab Interpretation (test cod e = 07440-5) Abnormal [facility] GLUCOSE (AUTOMATED)2023-02-08 01:12:01* Test Item Value Reference Range Interpretation Comme nts POCT GLU (test code = 1738683639) 207 mg/dL 70-110 H Lab Interpretation (test cod e = 64519-1) Abnormal [facility] GLUCOSE (AUTOMATED)2023-02-07 23:02:17* Test Item Value Reference Range Interpretation Comme nts POCT GLU (test code = 2575561087) 212 mg/dL 70-110 H Lab Interpretation (test cod e = 69107-4) [facility] 13:44:50* Test Item Value Reference Range Interpretation Comme nts POCT GLU (test code = 3930657121) 137 mg/dL 70-110 H Lab Interpretation (test cod e = 05559-8) Abnormal [facility] GLUCOSE (AUTOMATED)2023-02-07 01:34:23* Test Item Value Reference Range Interpretation Comme nts POCT GLU (test code = 9008055931) 182 mg/dL 70-110 H Lab Interpretation (test cod e = 01879-6) Abnormal [facility] GLUCOSE (AUTOMATED)2023-02-06 21:35:48* Test Item Value Reference Range Interpretation Comme nts POCT GLU (test code = 7919952238) 208 mg/dL 70-110 H Lab Interpretation (test cod e = 78528-5) Abnormal [facility] GLUCOSE (AUTOMATED)2023-02-06 16:49:01* Test Item Value Reference Range Interpretation Comme nts POCT GLU (test code = 7082241257) 149 mg/dL 70-110 H Lab Interpretation (test cod e = 36488-0) Abnormal [facility] GLUCOSE (AUTOMATED)2023-02-06 12:49:40* Test Item Value Reference Range Interpretation Comme nts POCT GLU (test code = 5740353919) 129 mg/dL 70-110 H Lab Interpretation (test cod e = 83644-6) Abnormal [facility] GLUCOSE (AUTOMATED)2023-02-06 01:32:23* Test Item Value Reference Range Interpretation Comme nts POCT GLU (test code = 8777105948) 218 mg/dL 70-110 H Lab Interpretation (test cod e = 97532-4) Abnormal [facility] GLUCOSE (AUTOMATED)2023-02-05 21:16:54* Test Item Value Reference Range Interpretation Comme nts POCT GLU (test code = 2575507252) 196 mg/dL 70-110 H Lab Interpretation (test cod e = 45331-8) Abnormal [facility] GLUCOSE (AUTOMATED)2023-02-05 16:28:07* Test Item Value Reference Range Interpretation Comme nts POCT GLU (test code = 2927967904) 141 mg/dL 70-110 H Lab Interpretation (test cod e = 76540-6) [facility] 13:16:58* Test Item Value Reference Range Interpretation Comme nts POCT GLU (test code = 2297565501) 111 mg/dL 70-110 H Lab Interpretation (test cod e = 63992-5) Abnormal [facility] GLUCOSE (AUTOMATED)2023-02-05 02:08:45* Test Item Value Reference Range Interpretation Comme nts POCT GLU (test code = 7781702860) 186 mg/dL 70-110 H Lab Interpretation (test cod e = 76094-4) Abnormal [facility] GLUCOSE (AUTOMATED)2023-02-04 21:56:12* Test Item Value Reference Range Interpretation Comme nts POCT GLU (test code = 6591629825) 169 mg/dL 70-110 H Lab Interpretation (test cod e = 07305-3) [facility] 17:09:55* Test Item Value Reference Range Interpretation Comme nts POCT GLU (test code = 2081006743) 147 mg/dL 70-110 H Lab Interpretation (test cod e = 44802-5) [facility] 12:44:04* Test Item Value Reference Range Interpretation Comme nts POCT GLU (test code = 1042325333) 134 mg/dL 70-110 H Lab Interpretation (test cod e = 05997-7) [facility] 01:35:35* Test Item Value Reference Range Interpretation Comme nts POCT GLU (test code = 8413463080) 165 mg/dL 70-110 H Lab Interpretation (test cod e = 07850-0) Abnormal [facility] GLUCOSE (AUTOMATED)2023-02-03 22:24:21* Test Item Value Reference Range Interpretation Comme nts POCT GLU (test code = 3352969351) 119 mg/dL 70-110 H Lab Interpretation (test cod e = 15009-7) Abnormal [facility] GLUCOSE (AUTOMATED)2023-02-03 16:50:54* Test Item Value Reference Range Interpretation Comme nts POCT GLU (test code = 5673682387) 225 mg/dL 70-110 H Lab Interpretation (test cod e = 11116-6) Abnormal [facility] GLUCOSE (AUTOMATED)2023-02-03 13:20:55* Test Item Value Reference Range Interpretation Comme nts POCT GLU (test code = 6020657306) 124 mg/dL 70-110 H Lab Interpretation (test cod e = 35735-2) Abnormal [facility] GLUCOSE (AUTOMATED)2023-02-03 02:16:40* Test Item Value Reference Range Interpretation Comme nts POCT GLU (test code = [id number]) 150 mg/dL 70-110 H Lab Interpretation (test cod e = 86676-6) Abnormal [facility] GLUCOSE (AUTOMATED)2023-02-02 22:16:00* Test Item Value Reference Range Interpretation Comme nts POCT GLU (test code = [id number]) 225 mg/dL 70-110 H Lab Interpretation (test cod e = 17413-4) Abnormal [facility] GLUCOSE (AUTOMATED)2023-02-02 17:16:51* Test Item Value Reference Range Interpretation Comme nts POCT GLU (test code = [id number]) 175 mg/dL 70-110 H Lab Interpretation (test cod e = 86941-5) Abnormal [facility] GLUCOSE (AUTOMATED)2023-02-02 12:37:49* Test Item Value Reference Range Interpretation Comme nts POCT GLU (test code = [id number]) 130 mg/dL 70-110 H Lab Interpretation (test cod e = 90557-5) Abnormal [facility] GLUCOSE (AUTOMATED)2023-02-02 01:15:10* Test Item Value Reference Range Interpretation Comme nts POCT GLU (test code = [id number]) 183 mg/dL 70-110 H Lab Interpretation (test cod e = 79686-6) Abnormal [facility] GLUCOSE (AUTOMATED)2023-02-01 21:59:52* Test Item Value Reference Range Interpretation Comme nts POCT GLU (test code = [id number]) 118 mg/dL 70-110 H Lab Interpretation (test cod e = 49851-8) Abnormal [facility] GLUCOSE (AUTOMATED)2023-02-01 16:21:37* Test Item Value Reference Range Interpretation Comme nts POCT GLU (test code = [id number]) 171 mg/dL 70-110 H Lab Interpretation (test cod e = 79501-3) Abnormal [facility] GLUCOSE (AUTOMATED)2023-02-01 12:51:51* Test Item Value Reference Range Interpretation Comme nts POCT GLU (test code = [id number]) 111 mg/dL 70-110 H Lab Interpretation (test cod e = 56280-5) Abnormal [facility] GLUCOSE (AUTOMATED)2023-02-01 01:49:19* Test Item Value Reference Range Interpretation Comme nts POCT GLU (test code = 0270663041) 131 mg/dL 70-110 H Lab Interpretation (test cod e = 99417-0) [id number] 23:05:19* Test Item Value Reference Range Interpretation Comme nts FREE T4 (test code = 4668915823) 1.17 See_Comment [Automated [facility]] The system which generated this result transmitted reference range: 0.78 - 2.20 ng/dL:. The reference range was not used to interpret this result as normal/abnormal. Lab Interpretation (test code = 91958-2) Normal [facility] GLUCOSE (AUTOMATED)2023-01-31 21:16:44* Test Item Value Reference Range Interpretation Comme nts POCT GLU (test code = 6577340308) 139 mg/dL 70-110 H Lab Interpretation (test cod e = 18473-1) Abnormal [facility] GLUCOSE (AUTOMATED)2023-01-31 16:44:15* Test Item Value Reference Range Interpretation Comme nts POCT GLU (test code = 2707086306) 107 mg/dL 70-110 Lab Interpretation (test cod e = 69766-4) Normal [facility] GLUCOSE (AUTOMATED)2023-01-31 12:56:40* Test Item Value Reference Range Interpretation Comme nts POCT GLU (test code = 5924709792) 110 mg/dL 70-110 Lab Interpretation (test cod e = 76681-1) [facility] [id number] 06:15:48* Test Item Value Reference Range Interpretation Comme nts FERRITIN (test code = 1320833396) 82.1 ng/mL 18.0-464.0 BRYSON (test code = BRYSON) Biotin has been reported to cause a negative bias, interpret results relative to patient's use of biotin. Lab Interpretation (test code = 04162-6) [facility] [id number] 05:47:28* Test Item Value Reference Range Interpretation Comme nts IRON (test code = 5992807575) 30 ug/dL 50-160 L TIBC (test code = 0389816960) 294 ug/dL 250-410 % FE SAT (test code = 0362810534) 10 % 20-50 L Lab Interpretation (test cod e = 37375-6) [facility]2023-04-26 05:38:19* Test Item Value Reference Range Interpretation Comme nts PHOSPHORUS (test code = 5912520566) 5.1 mg/dL 2.5-5.0 H Lab Interpretation (test cod e = 39798-1) [facility]normal [facility] HospitalTROPONIN [id number] 00:26:23* Test Item Value Reference Range Interpretation Comme nts TROPONIN I (test code = 0187718302) 0.016 ng/mL <=0.034 BRYSON (test code = [...] of biotin. Lab Interpretation (test code = 47680-0) [facility]MINAL [id number] 00:23:01* Test Item Value Reference Range Interpretation Comme nts NT-proBNP (test code = 2335681336) 2150 pg/mL <=125 H BRYSON (test code = BRYSON) Biotin has been reported to cause a negative bias, interpret results relative to patient's use of biotin. Lab Interpretation (test code = 19441-5) Abnormal [facility]. METABOLIC PANEL (27567)2023-01-31 00:14:59* Test Item Value Reference Range Interpretation Comme nts NA (test code = 8669201821) 139 mmol/L 135-145 K (test code = 2355735142) 5.3 mmol/L 3.5-5.0 H CL (test code = 4907363573) 111 mmol/L 98-108 H CO2 TOTAL (test code = 1904003968) 23 mmol/L 23-31 AGAP (test code = 3956874261) 5 2-16 BUN (test code = 7373973683) 37 mg/dL 7-23 H GLUCOSE (test code = 4338690957) 100 mg/dL 70-110 CREATININE (test code = 9950542923) 1.98 mg/dL 0.60-1.25 H TOTAL BILI (test code = 0659225176) 0.4 mg/dL 0.1-1.1 CALCIUM (test code = 1868664284) 8.7 mg/dL 8.6-10.6 T PROTEIN (test code = 3562612306) 6.6 g/dL 6.3-8.2 ALBUMIN (test code = 7216657170) 3.4 g/dL 3.5-5.0 L ALK PHOS (test code = 8261990150) 127 U/L 34-122 H ALTv (test code = 1742-6) 28 U/L 5-50 AST(SGOT) (test code = 4807723562) 34 U/L 13-40 eGFR (test code = 2328097813) 35.0 mL/min/1.73m2 BRYSON (test code = BRYSON) [...] imaging tests). Lab Interpretation (test code = 77238-1) Abnormal [facility] WITH [id number] 00:04:02* Test Item Value Reference Range Interpretation Comme nts WBC (test code = 6690-2) 9.27 See_Comment [Automated [employer]] The system which generated this result transmitted reference range: 4.20 - 10.70 10*3/?L. The reference range was not used to interpret this result as normal/abnormal. RBC (test code = 789-8) 3.15 See_Comment L [Automated [employer]] The system which generated this result transmitted [...] 31.3 g/dL 31.2-35.0 RDW-SD (test code = 25429-2) 49.5 fL 38.5-51.6 RDW-CV (test code = 788-0) 14.4 % 12.1-15.4 PLT (test code = 777-3) 248 See_Comment [Automated messa ge] The system which generated this result transmitted reference range: 150 - 328 10*3/?L. The reference range was not used to interpret this result as normal/abnormal. MPV (test code = 69324-2) 11.9 fL 9.8-13.0 NRBC/100 WBC (test code = 2483880346) 0.0 See_Comment [Automated [employer] ssage] The system which generated this result transmitted reference range: 0.0 - 10.0 /100 WBCs. The reference range was not used to interpret this result as normal/abnormal. NRBC x10^3 (test code = 2136739814) See_Comment [Automated messa ge] The system which generated this result transmitted reference range: 10*3/?L. The reference range was not used to interpret this result as normal/abnormal. GRAN MAT (NEUT) % (test code = 770-8) 68.5 % IMM GRAN % (test code = 1650538500) 0.40 % LYMPH % (test code = 736-9) 17.8 % MONO % (test code = 5905-5) 10.4 % EOS % (test code = 713-8) 2.4 % BASO % (test code = 706-2) 0.5 % GRAN MAT x10^3(ANC) (test code = 7395039485) 6.35 10*3/uL 1.99-6.95 IMM GRAN x10^3 (test code = 3693713988) 0.04 10*3/uL 0.00-0.06 LYMPH x10^3 (test code = 731-0) 1.65 10*3/uL 1.09-3.23 MONO x10^3 (test code = 742-7) 0.96 10*3/uL 0.36-1.02 EOS x10^3 (test code = 711-2) 0.22 10*3/uL 0.06-0.53 BASO x10^3 (test code = 704-7) 0.05 10*3/uL 0.01-0.09 Lab Interpretation (test code = 92196-5) [facility]normal [facility] HospitalHEMOGLOBIN [id number] 04:29:13* Test Item Value Reference Range Interpretation Comme nts HEMOGLOBIN A1c (test code = 20851) 9.6 % 4.2-5.6 H CITIZEN OF [employer] [employer] GUIDELINES FOR HGB A1C: [...] CONSIDER ALTERNATE TESTING OR LABORATORY CONSULTATION. LIPID [id number] 02:58:52* Test Item Value Reference Range Interpretation [...] SPECIMENS. FOR MOREINFORMATION, SEE CLIENT ANNOUNCEMENT AT [email or web address] RISK RATIO LDL/HDL (test code = 2238) 3.29 RATIO <3.55 UNLESS OTHERW ISE INDICATED, ALL TESTING PERFORMED [facility] [address] [place] [address] COLLAR PACKER: NIKKIE CRANDALL M.D. CLIA NUMBER [id number] [facility] [place]. [id number] HEMOGLOBIN [id number] 00:00:00* Test Item Value Reference Range Interpretation Comme nts HEMOGLOBIN A1c (test code = 40938) 9.6 % LIPID [id number] 00:00:00* Test Item Value Reference Range Interpretation Comme nts CHOLESTEROL (test code = 2210) 224 MG/DL TRIGLYCERIDES (test code = 2232) 174 MG/DL HDL CHOLESTEROL (test code = 2220) 45 MG/DL CALC LDL CHOL (test code = 2237) 148 MG/DL RISK RATIO LDL/HDL (test cod e = 2238) 3.29 RATIO LIPID [id number] 23:49:07* Test Item Value Reference Range Interpretation [...] SPECIMENS. FOR MOREINFORMATION, SEE CLIENT ANNOUNCEMENT AT [email or web address] RISK RATIO LDL/HDL (test code = 2238) 2.71 RATIO <3.55 COMPREHENSIVE METABOLIC [id number] 23:49:07* Test Item Value Reference Range Interpretation Comme nts GLUCOSE (test code = 2217) 259 MG/DL 70-99 H BUN (test code = 2208) 19 MG/DL 6-20 CREATININE (test code = 2214) 1.06 MG/DL 0.80-1.40 eGFR (2020 CKD-EPI) (test code = 73063) 82 ML/MIN/1.73 >60 CALC BUN/CREAT (test code = 2235) 18 RATIO 6-28 SODIUM (test code = 2231) 140 MEQ/L 133-146 POTASSIUM (test code = 2228) 4.3 MEQ/L 3.5-5.4 CHLORIDE (test code = 2215) 103 MEQ/L 95-107 CARBON DIOXIDE (test code = 2206) 24 MEQ/L 19-31 CALCIUM (test code = 2209) 9.3 MG/DL 8.5-10.5 PROTEIN, TOTAL (test code = 222) 6.7 G/DL 6.1-8.3 ALBUMIN (test code = 220) 3.7 G/DL 3.5-5.2 CALC GLOBULIN (test code = 2240) 3.0 G/DL 1.9-3.7 CALC A/G RATIO (test code = 223) 1.2 RATIO 1.0-2.6 BILIRUBIN, TOTAL (test code = 2207) 0.3 MG/DL See_Comment [Automated me ssage] The system which generated this result transmitted reference range: <=1.2. The reference range was not used to interpret this result as normal/abnormal. ALKALINE PHOSPHATASE (test code = 2203) 109 U/L 40-123 AST (test code = 2218) 20 U/L 9-50 ALT (test code = 2219) 21 U/L 5-50 UNLESS OTHERWISE INDICATED, ALL TESTING PERFORMED [employer] [facility] [employer] [employer] [address] [place] [address] COLLAR PACKER: NIKKIE CRANDALL M.D. CLIA NUMBER [id number] [facility] [place]. [id number] HEMOGLOBIN [id number] 05:27:41* Test Item Value Reference Range Interpretation Comme nts HEMOGLOBIN A1c (test code = 80956) 9.9 % 4.2-5.6 H CITIZEN OF [employer] GUIDELINES FOR HGB A1C: [...] OR LABORATORY CONSULTATION. CBC W/AUTO DIFF WITH [id number] 04:31:59* Test Item Value Reference Range Interpretation [...] = 1065) 0.0 /100 WBC'S See_Comment [Automated [employer]] The system which generated this result [...] 0.00-0.10 ABS NUCLEATED RBCS (test code = 56896) 0.00 K/UL 0.00-0.11 LIPID [id number] 00:00:00* Test Item Value Reference Range Interpretation Comme nts CHOLESTEROL (test code = 2210) 213 MG/DL TRIGLYCERIDES (test code = 2232) 169 MG/DL HDL CHOLESTEROL (test code = 2220) 49 MG/DL CALC LDL CHOL (test code = 2237) 133 MG/DL RISK RATIO LDL/HDL (test cod e = 2238) 2.71 RATIO HEMOGLOBIN [id number] 00:00:00* Test Item Value Reference Range Interpretation Comme nts HEMOGLOBIN A1c (test code = 02999) 9.9 % COMPREHENSIVE METABOLIC [id number] 00:00:00* Test Item Value Reference Range Interpretation Comme nts GLUCOSE (test code = 2217) 259 MG/DL BUN (test code = 2208) 19 MG/DL CREATININE (test code = 2214) 1.06 MG/DL eGFR (2020 CKD-EPI) (test co de = 78178) 82 ML/MIN/1.73 CALC BUN/CREAT (test code = [...] code = 2219) 21 U/L CBC W/AUTO [id number] 00:00:00* Test Item Value Reference Range Interpretation [...] ABS NUCLEATED RBCS (test cod e = 42144) 0.00 K/UL LIPID [id number] 00:00:00* Test Item Value Reference Range Interpretation Comme nts CHOLESTEROL (test code = 2210) 213 MG/DL TRIGLYCERIDES (test code = 2232) 169 MG/DL HDL CHOLESTEROL (test code = 2220) 49 MG/DL CALC LDL CHOL (test code = 2237) 133 MG/DL RISK RATIO LDL/HDL (test cod e = 2238) 2.71 RATIO HEMOGLOBIN [id number] 00:00:00* Test Item Value Reference Range Interpretation Comme nts HEMOGLOBIN A1c (test code = 69289) 9.9 % COMPREHENSIVE METABOLIC [id number] 00:00:00* Test Item Value Reference Range Interpretation Comme nts GLUCOSE (test code = 2217) 259 MG/DL BUN (test code = 2208) 19 MG/DL CREATININE (test code = 2214) 1.06 MG/DL eGFR (2020 CKD-EPI) (test co de = 78657) 82 ML/MIN/1.73 CALC BUN/CREAT (test code = [...] code = 2219) 21 U/L CBC W/AUTO [id number] 00:00:00* Test Item Value Reference Range Interpretation [...] ABS NUCLEATED RBCS (test cod e = 81391) 0.00 K/UL HEMOGLOBIN [id number] 07:51:54* Test Item Value Reference Range Interpretation Comme nts HEMOGLOBIN A1c (test code = 77034) 10.1 % 4.2-5.6 H CITIZEN OF [employer] GUIDELINES FOR HGB A1C: [...] ALTERNATE TESTING OR LABORATORY CONSULTATION. COMPREHENSIVE METABOLIC [id number] 06:38:05* Test Item Value Reference Range Interpretation Comme nts GLUCOSE (test code = 2216) 164 MG/DL 70-99 H BUN (test code = 2207) 27 MG/DL 6-20 H CREATININE (test code = 2213) 1.06 MG/DL 0.80-1.40 eGFR (2020 CKD-EPI) (test code = ) 82 ML/MIN/1.73 >60 CALC BUN/CREAT (test code = 2234) 25 RATIO 6-28 SODIUM (test code = 2230) 141 MEQ/L 133-146 POTASSIUM (test code = 2227) 4.0 MEQ/L 3.5-5.4 CHLORIDE (test code = 2214) 103 MEQ/L 95-107 CARBON DIOXIDE (test code = 2205) 23 MEQ/L 19-31 CALCIUM (test code = 2208) 9.6 MG/DL 8.5-10.5 PROTEIN, TOTAL (test code = 2228) 6.9 G/DL 6.1-8.3 ALBUMIN (test code = 2200) 4.0 G/DL 3.5-5.2 CALC GLOBULIN (test code = 2240) 2.9 G/DL 1.9-3.7 CALC A/G RATIO (test code = 2233) 1.4 RATIO 1.0-2.6 BILIRUBIN, TOTAL (test code = 2206) 0.4 MG/DL See_Comment [Automated me ssage] The system which generated this result transmitted reference range: <=1.2. The reference range was not used to interpret this result as normal/abnormal. ALKALINE PHOSPHATASE (test code = 2203) 97 U/L 40-123 AST (test code = 8) 22 U/L 9-50 ALT (test code = 2219) 22 U/L 5-50 LIPID [id number] 06:38:05* Test Item Value Reference Range Interpretation Comme nts CHOLESTEROL (test code = 2210) 229 MG/DL <200 H TRIGLYCERIDES (test code = 2232) 122 MG/DL <150 HDL CHOLESTEROL (test code = 2220) 68 MG/DL >39 CALC LDL CHOL (test code = 2236) 137 MG/DL <100 H NOTE: CALCULATED LDL IS BASED ON ANA-BURGESS METHOD WHICHINCLUDES ADJUSTABLE TRIGLYCERIDE:VLDL CHOLESTEROL RATIO.THIS FACTOR VARIES BY MEASURED TRIGLYCERIDE AND NON-HDLCHOLESTEROL CONCENTRATIONS WITH INCREASED CALCULATED LDL SEENIN HIGHER TRIGLYCERIDE OR LOWER NON-HDL SPECIMENS. FOR MOREINFORMATION, SEE CLIENT ANNOUNCEMENT AT [email or web address] RISK RATIO LDL/HDL (test code = 2238) 2.01 RATIO <3.55 UNLESS OTHERW ISE INDICATED, ALL TESTING PERFORMED [facility] [employer] [address] [place] [address] COLLAR PACKER: NIKKIE CRANDALL M.D. CLIA NUMBER [id number] [facility] [place]. [id number] CBC W/AUTO DIFF WITH [id number] 04:34:50* Test Item Value Reference Range Interpretation [...] = 1065) 0.0 /100 WBC'S See_Comment [Automated [employer]] The system which generated this result [...] 0.00-0.10 ABS NUCLEATED RBCS (test code = 98723) 0.00 K/UL 0.00-0.11 HEMOGLOBIN [id number] 00:00:00* Test Item Value Reference Range Interpretation Comme nts HEMOGLOBIN A1c (test code = 27672) 10.1 % COMPREHENSIVE METABOLIC [id number] 00:00:00* Test Item Value Reference Range Interpretation Comme nts GLUCOSE (test code = 7) 164 MG/DL BUN (test code = 2208) 27 MG/DL CREATININE (test code = 2214) 1.06 MG/DL eGFR (2020 CKD-EPI) (test co de = 72220) 82 ML/MIN/1.73 CALC BUN/CREAT (test code = [...] (test code = 2219) 22 U/L LIPID [id number] 00:00:00* Test Item Value Reference Range Interpretation Comme nts CHOLESTEROL (test code = 2210) 229 MG/DL TRIGLYCERIDES (test code = 2232) 122 MG/DL HDL CHOLESTEROL (test code = 2220) 68 MG/DL CALC LDL CHOL (test code = 2237) 137 MG/DL RISK RATIO LDL/HDL (test cod e = 2238) 2.01 RATIO CBC W/AUTO [id number] 00:00:00* Test Item Value Reference Range Interpretation [...] ABS NUCLEATED RBCS (test cod e = 31571) 0.00 K/UL HEMOGLOBIN [id number] 00:00:00* Test Item Value Reference Range Interpretation Comme nts HEMOGLOBIN A1c (test code = 57103) 10.1 % COMPREHENSIVE METABOLIC [id number] 00:00:00* Test Item Value Reference Range Interpretation Comme nts GLUCOSE (test code = 2217) 164 MG/DL BUN (test code = 2208) 27 MG/DL CREATININE (test code = 2214) 1.06 MG/DL eGFR (2020 CKD-EPI) (test co de = 08293) 82 ML/MIN/1.73 CALC BUN/CREAT (test code = [...] (test code = 2219) 22 U/L LIPID [id number] 00:00:00* Test Item Value Reference Range Interpretation Comme nts CHOLESTEROL (test code = 2210) 229 MG/DL TRIGLYCERIDES (test code = 2232) 122 MG/DL HDL CHOLESTEROL (test code = 2220) 68 MG/DL CALC LDL CHOL (test code = 2237) 137 MG/DL RISK RATIO LDL/HDL (test cod e = 2238) 2.01 RATIO CBC W/AUTO [id number] 00:00:00* Test Item Value Reference Range Interpretation [...] ABS NUCLEATED RBCS (test cod e = 04804) 0.00 K/UL POCT GLUCOSE (AUTOMATED)2021-07-08 17:00:05* Test Item Value Reference Range Interpretation Comme nts POCT GLU (test code = 2160896396) 174 mg/dL 70-110 H Lab Interpretation (test cod e = 39216-9) Abnormal [facility] GLUCOSE (AUTOMATED)2021-07-08 17:00:05* Test Item Value Reference Range Interpretation Comme nts POCT GLU (test code = 2798745762) 174 mg/dL 70-110 H Lab Interpretation (test cod e = 90629-9) Abnormal [facility] GLUCOSE (AUTOMATED)2021-07-08 13:07:13* Test Item Value Reference Range Interpretation Comme nts POCT GLU (test code = 1620435600) 230 mg/dL 70-110 H Lab Interpretation (test cod e = 76717-2) Abnormal [facility] GLUCOSE (AUTOMATED)2021-07-08 13:07:13* Test Item Value Reference Range Interpretation Comme nts POCT GLU (test code = 0852855187) 230 mg/dL 70-110 H Lab Interpretation (test cod e = 18227-0) [facility] # [id number] 07:01:05* Test Item Value Reference Range Interpretation Comme nts Blood Culture-Aerobic (test code = 92112-1) No organisms isolated No growth Previous preliminary [...] 0201 T Blood Culture-Anaerobic (test code = 35517-7) No organisms isolated No growth Previous preliminary [...] 0201 CDT Lab Interpretation (test code = 11817-3) [facility] Culture - Peripheral # [id number] 07:01:05* Test Item Value Reference Range Interpretation Comme nts Blood Culture-Aerobic (test code = 74066-3) No organisms isolated No growth Previous preliminary [...] 0201 T Blood Culture-Anaerobic (test code = 43518-0) No organisms isolated No growth Previous preliminary [...] 0201 CDT Lab Interpretation (test code = 18948-5) [facility] Culture - Peripheral # [id number] 07:01:05* Test Item Value Reference Range Interpretation Comme nts Blood Culture-Aerobic (test code = 51960-4) No organisms isolated No growth Previous preliminary [...] 0201 CDT Blood Culture-Anaerobic (test code = 10310-0) No organisms isolated No growth Previous preliminary [...] 0201 CDT Lab Interpretation (test code = 75255-6) Normal [facility] Culture - Peripheral # [id number] 07:01:05* Test Item Value Reference Range Interpretation Comme [facility] Blood Culture-Aerobic (test code = 52022-4) No organisms isolated No growth Previous preliminary [...] 0201 CDT Blood Culture-Anaerobic (test code = 67499-9) No organisms isolated No growth Previous preliminary [...] 0201 CDT Lab Interpretation (test code = 84402-3) Normal [facility] GLUCOSE (AUTOMATED)2021-07-07 22:16:33* Test Item Value Reference Range Interpretation Comme [facility] POCT GLU (test code = 6357035438) 293 mg/dL 70-110 H Lab Interpretation (test cod e = 08303-0) Abnormal [facility] GLUCOSE (AUTOMATED)2021-07-07 22:16:33* Test Item Value Reference Range Interpretation Comme nts POCT GLU (test code = 6709808441) 293 mg/dL 70-110 H Lab Interpretation (test cod e = 39774-5) [facility] [id number] 20:37:10* Test Item Value Reference Range Interpretation Comme nts Case Report (test code = 5869650085) Surgical Pathology ?Case: [id number] ? Authorizing Provider: ?Nomi Robles Jr., JANAY ? Collected: ? 07/05/2021 1842 ?Ordering Location: ? ? [facility] ? ? ?Received: ?07/05/2021 1948 ? [facility] ?Pathologist: ? Eduardo Ordaz MD PHD ?Specimen: ? ?TOE, RIGHT FOURTH TOE ? Final Diagnosis (test code = 1869585565) y2tzbWPmJOKmo1caQUOhgA FuZzEwMzNcZnRuYmpcdWMx IHtccnRmMVxlcGljOTYwMV sqapDeFMZhfMCwC3Bpfuwb UPglHQ2xLR6rsWifxLAmzG IwRZPlOnDjf6cje599nYBx b0kfYCFSequnbRt2yXblI6 6tq1G8OgwiR57rsUBcIMS9 RRRkHEBfoZStRIRkBGM9DK CylXLuW1mfDVIhIL9msole DPsdMPgxMJRmuKP5RZQtyG LvH5BxEBMcMFccBMBmvjw0 YwWeFx3gkRSvxTbsBBccOE JkXHBsYWluXGZzMjBccGFy MCGuOHLIS3dCPNQYJORPEA HFA4TlIDIGPAVUFRJBG031 UUUqodQeFXJjNCXPV3SPNL 8ZAfQZKF5NYwCTNIRZQEUN QYSYVIGNHR2RYMEPPAaZOM lUSVNccGFyICAgICAtIFBS G9zMQMWOEFDQFRkZCNuKQt SRSCKFQZDEQQPRXWEqT7Mn L8TGZG7SHOZZORUFZ5clYS TcDAZzNP5qT4mDTxVZOnMy L40YTPSAYZMHMGMiXlHSSZ STVD4WQQ2VJclFVwCbECGG IFZJQUJMRSAgXHBhclxwYX WfVlAwCuLWiJLgKJPuVI7q GW2YYdIwAQzbAbPlPfNxOO AgMToyMyBQTVxwYXJcZnMy LTtsTOH3p6nlcGWcNJQnaX AgOgHxVXDtWIRxt4cpYXYv bGFuZzEwMzNcZnRuYmpcdW SzAHSdBqQca6njg422mXAb c5qoCBMgZxO4vBAuQJYohG zsfrt0tBlzJbChMDHyu7ad cyBcZmNoYXJzZXQwIEFyaW TgM623CGPqGKqrz2emm9Im ZARxpPQls8I0WCADQKoyIk PlA786l5ufj5dimgLewVU0 UGOiUIZ7GYlrtqEnmqS5FS lmlLTaWiL8UTmrnpYdJNao voUkknQjBjx0WLStH697EN T3iPsql8bdSCW9RGBuODQp AujcPr7ntPNqT288LDNjBY BQENUmiGe9XGXpsbAwuaPg qGLQb575K359w8eoTTHgkk OlbTeFbblup3ogL546YJDk cGVydzEyMjQwXHBhcGVyaD A7YNUgJX3tiugqSCmaVZjd NVGgrlL5MVPepGJyK1ZlYS IlHH7ehfsiKSM5MGwmRTPk VWP4EcPjXEMub7Ijylc4Gr Qvzi4ess54KFK7s9LbbOfo FCO8DRE0LsTkQr1zfKPoHM XtSI6eIrGenEYrOYLrjb29 rMsyERxvvuDgkP3pSoCbMZ XrcHHwISOyHD7elPPjDNMa aN4ateqoXGBmZyXytvmsJP KeoZuroiPqWr5eeJybPAU6 MVuaB8sxdO4kUsM3KCuoA2 txwA9jAIv4QPrnyUR4LPVa rI7jOA6txlapk3ixWRfuYS rjFHWuowD4fgM8HYWtpKXa J9GjeG2bEXZaUN9fdhgnd5 pjLOU8NEdrMKMfRZG5NtBa HKVdh6Mrret0SfMjo2CboI XcVXlhC18gv444GUUjczKq V0cgxQNlpuqrtKKfykndSF zipeE8BGGpFSSuJIozCBSv XGZzMjBcbGFuZzEwMzNcaG ljaFxmMVxkYmNoXGYxXGxv E8llNzEnA2RdWRQiUzGhqF ZdLPgvoSQ0FYCqGZZxb81q eFh6QMIvsnqxb0RzTNJcoA GhaOXvfY4bszHet1abENRx PXPuPLThB2LjLXO9cIRiIP LtoJJkzVK8GY4lstFsZW2o ZGUgYnkgcmVzaWRlbnRzLC WpYKjck5hvAC8qUHWgoQnp mV5hcPS0VGJle5tezXWapT Eew4vkg1GtmxIoZNixDWTi IBnhYVCtZZDhXU3vTJPzeS VesxJve2A1ZrhbeLUrcunk GoewjrM6MQmhfxpsGMMiYH vrH5qePlAtXGGwxExqDkzl u6OxXEBjFOQpZikrkLBnlE 0= Clinical Information (test code = [id number]) OSTEOMYELITIS/GANGRENE OF RIGHT FOURTH TOE Gross Description (test code = [id number]) h9ozqTArRSOxqQCFETAcQi ynqkYsPAHzhTDrP1Fabskg DOxjLH4qFE1icSzqfFHflI EcIN5PAKBoAwKrWBOtuEIw fiJeQsReITBktTAvjUZ1QP JeJF1noszqANlnWFsiIJTe ynD5FUZnsZLzN8WoHOHoEL 3jmfmlLAL0HMzolT4vyfOI SypgNn8jiNBxtKfyKyJkSj NoYXJzZXQwXGZuaWwgQXJp BBp0kA2FOtvqELY9DZVLQt xfHVNhVF1Qz7xbQBXpeHVe ZWK7EFipfXJtSXDxKARbEM l1CCCiMFqulWEnZV7prNhi IlxpxCkzm9IfxJJgHAfhEO OmWYDkQSzvTKGpGV8EGsVb IUoFMoVqYyE2LiC6TNo7AA HSCaLmXhDvYHZ1LRlxVMhh YXr8YOk5FFdMWvJxTdG8Tm I9KFwrOOR2GNG6XHzugDYz IFxcZiBBcmlhbCBcXGZzID TnZPfnAuyfNCbzD43vcLcy uH8nSbRbDZRODvXWD1BgAQ BhciANClxwbGFpblxlcGlj TmVzdERvYzEgDQpcbHRycG FyXGxpbjBccmluMCANClxs dHJjaFxmczIyIFNwZWNpbW CdEJAsrGQtgyOrFRa2UZFm nR2zFw3ryLOthC3kmINdYH ngWQG3mAXfEYVzUPBiDFIj PH54V3SxepEfXYqbFFjcyp VnCiUkNGUektbfsZKeAb97 cnRoIHRvZSIsIGFuZCBjb2 7buYI5vbWeRoIhFETlwp8y tL5kAKCyGSReOU22XRsqVs 9tFSfxWp6tTLEgIDN7wOti tYDllgQwiLYwxkHsK6YbZX LcUHVnbHW2hFMzwWZ3YWZb yyLamBdanMQfL8IteCYjp0 iioO6nSOTvOVRsp50pEXTx e9BweIywaMfutSQuXEO6cz QyJ4UiPQh2MK0xfsKvZxDy N91msLZnqQztHSxiyF0hqR gzCQZfgM1zMP8vFRQkHyLd gWzbx2DoCESmr0NarPsyvu WjWDOfdE7zOWMCwEPqpZ0l MNnqSX5toTmwSdCpatioUt Y5zDBgVQRoeIEoBGcckCzv qvEacNcbaBVlxUI3dOsac2 XoFRZfeF4yahTwmU5uYFQr ZXJlIGlzIGEgdGFuLXllbG nugoV4ctA7ZL3gpDJojXoy HCLwV3NiKONlYOFdVBTqx6 4gKGFwcHJveGltYXRlbHkg Zf21KFphFr19UUYjXCFfi3 AxlPHwIH9sQPStAGQud4Vo WWwdw2PsLeJkDQRyFqY6lF AsdB5fVRC2nKTkUAziCfX7 bvF6nULxgFGpvDZxSGHlGE BsYXRlcmFsIHNpZGVzIHdo fAXoRHagon3mplDzBUErCT Icv6ccLITgKXOun1C2RPDr v7N0HQBxOSViM4Oul37pnV MgW0xvWNCqTYPrCAJbyVCz khYxGpTqI18vVjSkcZJ7vG PuKm7kUPYemQErswPdM0Oq YXRlZCBzdXJmYWNlLiAgVG hlIHJlbWFpbmRlciBvZiB0 ySWyw3hyivOrapMobBlpnL TohGFddty3zTWqFYWolHEc d7g4mGXmb2yjXSLhs9QhuW wdZw8sLVOrORZmn06aWQid XUVwV8Daq70dOMB1lyQkUR ZlYWwgdGFuLXllbGxvdyB0 bvS4TJ4fgpHoRSQvuUkojA z7NCKcko38grJhzPCnd9Iv ZmFjZXMuICBSZXByZXNlbn BdfWw9PPPgESA7xX3bzdIq emIyv7ThoDe8lKMdUClgNK IfQVVnSHEqd7pin6agjihc IAKcADujyEYcC9N8fK2wGG 1dLCTlGADzNOBSSw6trYKm AW2DEHNpftOCSmCmR0Pqx3 2jC50xCLkunJZpIS1XQHS8 QOMuzL6ds64rhSJ2iIOjzC LcynWsTWE8aB1aPU6fqkoy bctzOO4vAuVhRPixRP45qT XatBpzqUAdJO2OYAU7ZOMv fqVyUWwpTHW8cBP3kRH6OF Zgv3TsVjQwZKivjTRgdHDv VQxokBslhni9UBQlV5Wwu3 1kGQkeVB77cEUtgVrdBGOx cUndk2fuGrHbYOJikSHcHf meRYNqg81iwHMfTQ9ZLFW4 YRZwy2FgJSAgQ9Ewg89yYA MjgBSmq3EeqCK2iXWfYUVx e7xcb8zsogsePBAjEUhtoE UqA5K8aE4uJUZwtjGEPhgz PEOmGFcYNYT8FKQzpwZacB dcLCVDJQ2KMUIbYYedBODk pLFMIGH9SI8kRPhcxFZznm yiRRYaQ1SfU3XksdOxlGTr ENZroqJcg3ykGYS6OKEvrW ErhHGjZvZhQhdeKDZ6UJqn b0cnSVT9SQMdzTYfjHYtXQ obXsIsIhnqCSFrN0AxN0Ne wdB3WXg1 Disclaimer (test code = [id number]) s4dqfIJeGBQqj4khMWCegL FuZzEwMzNcZnRuYmpcdWMx ECiynzSfRCuer9RhF5RtVb AwMFxhbnNpXGRlZmxhbmcx LWGtMTD1bnYaKAAeBTweFJ CpIAdeTa8qjDJyrHvfCxNy QQCaf3dpixAIBOrlHjBeT4 27JAQmKMfbr4uzm2TbHZKq qAOrf8E1WXIXjevwbNr8aY viJ90go3H5VcglK4umIRCt SPSzL6VtTZ6oTPEnFnt6WU E3MIV8SOOlMQYeI7MoQZ1m WDVzwYEjFPe4y3tctWswUO CeMMN9d5xnIWhdgvMaNZ8f mb4lyVf2c1xkqeVvPGVyBS QynRUINIHsL6VojWzcKt0l hZb3lIsfJzvkDIV8Dum6TY 4pcp31tih1jAimKQVsnpwj BaR0RQgsNROnlwpoMRv5ZO nkSVDesOR4UNCmsCJmN6Dg DFLuIF4yabk8ZOG0KFdfOW UuWnD2TXWyzUBgHFJjqUdq DStua608JMG5YfIlKV2aR2 Kzk8Q4pU2stHCiWXXqiRLp ItUkDABgaw4gfXWmNAgyk7 CnQCD4kzQ8zQRopRJcUMJg WG62Jbsta6PnPzune3XmY7 5xkBJ1JRxon9usSL6aMzM4 tmBmHJuiu2gleH4yUxP3YH btBZ8tZH5kRIBvfZ2vltiq XHBnYnJkcmhlYWRccGdicm MhZd4efWtxKAU2HRbnU4cj hA4pDjW8YDvdQ1beuH7iVJ j1TQvcuAU6FXKanZ1iNO9e xdoik1odCJupXGlrYZPcsl K0suV0TEHupQBiU4HztB6w LREmXW4bqkebw2fvEDN6YW uwUIDuPSN8XvMdRWTiz6Ke xft4WoAfd8FxgQBjTMldL5 2vv415BGUwdeMkG7iwvAAc evdgvLIbvvhpFVuofwY1GL IkcgRtr2HrDGVmDRF2OKpq YQtqdKOtKTKaeYemt6guG2 RscGFyXHBsYWluXGYxXGZz MjBcbGFuZzEwMzNcaGljaF yiMNmoZrBzIYHxVSesS0oa BrQvM7ZrFJJsZbHmhCGzF5 ggVGhpcyByZXBvcnQgbWF5 YPhkC2r7HBEoirJsqXs5cs QpBvSbQLKfNSV1CVxmmNUt HKEzj4MkfhchqIVuXf8ajK EnDWQllV9vXOWuQUDbVAwp QD0bsVs2SJHEwZQflTSiRn FMZFPhYB50ynVdGAXWsmfc x1O0YYvjUSXgh5BgpUOfM8 vih4EwNGUcq53lQX3lq0G5 f3fdQZF8DV9mu5LqOUXmqM MmwTUdCTSyi9Efmbnhv8Ip XOLrvhDlg6TwLKAeinDnqK SqZCRpvsXyph5defVxLBWo DIJiC7CzuqwzoFkorrLdGV Ltbl5xqwBkJFY6OOKWQCXi GXEat6UoaM9izLRCVOX4sZ Cteo0gghXGhBNvENIewx23 SHLaCX8sY8wqCTYwNRRrvv NuwWVnm8RtAIWsfGZ2yWPt PB0DNhVQo88jXUDhEOLQku YcCQMvwUbwaYG1haG5jW2r IChGREEpLlx+IFRoZSBGRE SeRH4yoaJyj3OizkXfhZvb TEIhpJXxn6BzgLTbh0OdrV wkr7HszVUamZNhJD2bAIZw clxwYXIgVVRNQiBMYWJvcm C3r0VlPVCsTZVmHCC3dFav xwl7SRZwpX3vVGDvO5fugf utRCjfFNWoh0NhyR5rvYQG tJOdd3TnlQHxfWPVvYMkPS 0bwaIoRIoOPAfFHPZ4cqNh DRSez1XdZZwcS6zwA45bzR snmNr2oEV2LIV8bV2fIdv+ IFxwYXJccGFyIEFwcHJvcH BxICAoaKxfqeFjW8LkzkNo jU5elJCtetAcHT7zSE9hZ7 W2fLRdLIKfawLvv3fjHGwy dmUgYmVlbiByZXZpZXdlZC Kkc0XuNBksFNU7AAetgsGw bmNsdWRpbmcgSCZFLCBTcG PffTDiDML6YClcbbCpiqVr IQ9azD1ywVmunC0yuRKffY D9jxmoMBOfBLXqyKztFRQd WW9yvZKeMSPpmlFWjRpooH JtyA4uE9OuBBYyIXOlqz5k ITJehN2pXLpkq1CrrgzeBZ FkLREqLVOqmnSnns9lXFVq gLXRQR3BDCbyoXYue3Kecn DfE7iQUJJ1ZYYmPgGjTkdd SAYidGKnnURbPLIsek54NU ApyP8amFjeLEGhcT7cnP3r tLjgwG2iYuNjSrUtRRgnKP 9kPLUnA0zalSDcAYIrZSIn O1eaFwFweJ9wmNztGOxuHi PqJnUcVWoySCA6bE== Embedded Images (test code = 7978937005) [facility] [id number] 20:37:10* Test Item Value Reference Range Interpretation Comme nts Case Report (test code = 6015940230) Surgical Pathology ?Case: [id number] ? Authorizing Provider: ?Nomi Robles Jr., DPM ? Collected: ? 07/05/2021 1842 ?Ordering Location: ? ? [facility] ? ? ?Received: ?07/05/2021 1948 ? [facility] ?Pathologist: ? Eduardo Ordaz MD PHD ?Specimen: ? ?TOE, RIGHT FOURTH TOE ? Final Diagnosis (test code = 1108916187) l6gocMCoVKWoo0kcNZEcjQ FuZzEwMzNcZnRuYmpcdWMx IHtccnRmMVxlcGljOTYwMV dwggUuAQZlvXKaG3Nkpafu PZxzQM3aDT0jzHbdvIUqrR LmPAMzQtTcp3opt900cTRe k1qvKNNGlyorpYh9kBfpX3 2tk3M1GpwvK49euZMkCCS0 GGCiCVXiwOHhJDRkEET2LZ MmpKKyB0swGJRfWB3skgcz RVlaTGnyKRTnfMT3KUNyzJ HhC3TjSDMzZEgvIMAtrrn5 EdWoCb1dxQMdhBdmFNcjPU JkXHBsYWluXGZzMjBccGFy QAAlCHVYC3dMVNWUBKWJVY HEJ4GiSCEPSHTAOOKZB127 KDRbjaWkEAPtNIBTV2NMPU 3LKuBEEX1FKzPYMANPHVLM IHPSCBDWIP4LYCJYMAxNAZ lUSVNccGFyICAgICAtIFBS L6nDZSDPRHGXGRtWIRmJGb GUUGNVFKNQWPCEXLTnS8To E3XEKP6FLTWNBCSPV0pkPB XwOPCjPI4qN4zDUqFITfRr G98NXOWSAEFBYVFzBxMHUA WIIV0NWA2VEmpPIjIzRFYR IFZJQUJMRSAgXHBhclxwYX MgImEtLeVZbNHjLWLpDR9h UV4LAbWbAVhzBcFmEwHwLG AgMToyMyBQTVxwYXJcZnMy DOnnVZS5d0yjsDSuXZBllI TlLmLgRLAzIUAge0ggWSBt bGFuZzEwMzNcZnRuYmpcdW WyDNSdFnTev8snf803kIUt y8zqKQCoZvJ4iQNaPAXsiH nsdzk9wTqaLgKyPZFif6hu cyBcZmNoYXJzZXQwIEFyaW JyR238NQPeULlng1jtd1Go YJZxlWOpx7F4NWRULTaaOh IvP864g9thi1uwoxGemAT9 TCHiMNY0SRzutjNanpH6RI nbsRUoHqV0USidqsHzODgi fpMmanNlWen9MDFqL452OG A1tSrzs4gmTFD5SPSnWNUk ApubQo8sdTFsK743UUPgHT ONRQZoeNv8OERnfaIaxcCt kRHFf115U748d8iiWRZfua JeaXvQvaskw2wkL000FUVe cGVydzEyMjQwXHBhcGVyaD U5XEHbUE3jwrkoTRixYQzs HBEamvS7LVNqaIDxZ3FbEF ZsNN2wejsxAOY9MScqHBZq VQP6HyIiIYNwv1Ihkyf8Xi Tjbh0ims99YEA0b8AboEah WFX8IIY4MwOfBq0gkKBdFW ByHX2lVwFggRUmIKBtzh13 bGhdGXtvprQbmB7yFpEiYL EyfGDxVJDkUO2puMAuAADe lR8bmfrgZLKmPcFburizWT BraXivgpPsLp6apCdaZAT9 SJtvS7vqqL6wZiC6WDbrG8 ejpM8fXUj0SLevaLT3LLFn dL5uYE4tbbtrh3xsRHolPK uuKRHrnpC1yqV6NCUtpDBn C8IixI7gESBbSZ5avlfoz4 aeFDX2DLeyLZDhNBU4FjXz OVEyk8Btspp4VhTiq3AmvP SiGAslI28lz239NRDiujQh O3xbrVPtclzptKKyssbsNN fmqnD1USRxOSPjWXlrPSHj XGZzMjBcbGFuZzEwMzNcaG ljaFxmMVxkYmNoXGYxXGxv E6voIuIxW6IuBVOlDgDyqI WaTRcpfPB0PXBqSQOzu75g aZp0UJWqumwow3SqRJNitH TloYBrwH2nndNuu8lfOEUz HBWbTCZzT8HeQNU0vVNeEV AyjGRgvZY7JX9vuwPcDM5e ZGUgYnkgcmVzaWRlbnRzLC VjMBrmb7wuQP4fVSXkeCme mF9krHA3XKEdh4awlZMxhC Sbv6udx9GkvqHyZKgjWNJg PGprPTGvMCTqSQ6fDMQkkM HaxpMyv7U2CsuktEFvmjbu EqialwZ4XVaulbbdDFMdQN vvL3pwIvYzFOAtzKexMoaw a9OeTFSeXVMrIwhjqZQneX 0= Clinical Information (test code = [id number]) OSTEOMYELITIS/GANGRENE OF RIGHT FOURTH TOE Gross Description (test code = 3885080366) x0hgrRPvEQKbxJOQEDScYp nbmzRmNJXwgCOsF0Ruxmlg AWpaTI6cWD9tjNopmTRvkM LwLM1NEPWoApAwGPDvdWLe tbTcCkYhXBWudMXhqDV5EZ HlIL2eohgqDWpjKIbcUJCh eyF2DIAszGMxD1BoSFOlQD 5gorqzWLR6WTjwhN1odeMO SeyaMf9ylIEewKmxEzIdAo NoYXJzZXQwXGZuaWwgQXJp BFq1bD2AOmqpETD1CHIFHe hpMXHyFM2Os4kbLJXthZZi XGW2KElclEWdQKReIVEyPV v2NFNrIYosuJLeOK2bhLus MtaqoPrpu1UbiUErJSmvCA HlYSFuCWghWFGzSP1KSuIn WQgNPdXcHzU4JaI2ZOu4AP BRGiDdUkMzYBP4LVjrTEap YMw1NEz8JNuJYyTtGtP0El J5NJkuZUT2XEQ1YHzrvEDi IFxcZiBBcmlhbCBcXGZzID ZrRYqtMsjvIVawJ33swHzb eE5lDcYxYMASYmXMO6SoVH BhciANClxwbGFpblxlcGlj TmVzdERvYzEgDQpcbHRycG FyXGxpbjBccmluMCANClxs dHJjaFxmczIyIFNwZWNpbW ZlCHMciPGoxwDwDEa1PEJu zU2kQg0neHUbiX7moLHjFW dyURI3yKEpQETqOZVzUXVj VU37E7LcfpIbOYnyIVmbfw PiYkKjBKBmojqvkGBoOp37 cnRoIHRvZSIsIGFuZCBjb2 4bqZH8riQpXrIpPFEctt8j iZ8uURCqLLHaGY04CRvvSy 9iPUmpQn7tEHErIHZ1yWfn fYLjkkMmsCHgcaZyL4NyYD MgGNDmgGA0sTMnaRY8DADe zsVsnVfizAKsV1MhoAKtz2 nuqL4jXIBrJQFag20zENWj k4ZseKfwfNxjoIGwABC6rh FbD3RcNQj4NL3ojnOvMyXo G39npBQjzVuaYNxywC6ghF ouCJAoeJ3qJC0jNGEgLqQu lOqna7KiRAHag2PfuWlmpg AdPFJvwT7nSBHYvQXpbC2a FXneDN9beDczAtBignlmHi R7lQSgOCXxbHOdFImahJmp szAtgBojnORnzJI1yHhwg5 AkZIThhZ2xmoXznF4jULNe ZXJlIGlzIGEgdGFuLXllbG ywdvU7hbW9YM7krQZvlVun LUZsR2JoGERcPWTgZJSaa5 4gKGFwcHJveGltYXRlbHkg Lx32MJheLx90OMTfJOYtd2 OfoQVpSM1cYPVrTWVri1Zv WEeby4BdXyLqRBLzXrV4jW QiiX1nELD6gETlGUqjWmB8 eaS8wZYytFJupGCzJNHoYF BsYXRlcmFsIHNpZGVzIHdo aAZlOUlmfg6mgeYaGZWkBR Hsw1drQCRaZCLzd1M5WDMb i4O5KGOvXVNpJ2Ccj53tvV UtU2jfJLNgQCRqSGQdzVXk ayBwZqIcT82pEiMvmAN5xW OpRi8nRQKvtWVikeHbR4Rz YXRlZCBzdXJmYWNlLiAgVG hlIHJlbWFpbmRlciBvZiB0 kKJvw9uaosBvgkWhkXolrV NnfZSkgve8gXKwKBMdwERy e4x0aHGkj3hbPZCmk1VsgP biBs3rOVHkKKJjk60dVEbk IBMcO3Vgr90hKMF1qeAiMC ZlYWwgdGFuLXllbGxvdyB0 dmT9PN9ihmBgCITzsTbezF w9GNAbhy30kwQfaOEsq0Ty ZmFjZXMuICBSZXByZXNlbn RwgJz3DYPdBAD1rM3xypMs acBvi3AlrOt8hVRiWClpCZ AxEYCwTESrr7ctt2epozyp BMIgXFrwxTFzK8L0tG7fHH 8nLTZoRHDsHJSJMx8zzGHu LG3VLUCxroRZScMgL3Xus9 3dV27kULeqlXWlFB6VRAY1 FHWhxY4nt36cfDW6oGLclW HwerTcYFW3wV0bWU8hbdem kerlFH6iVyLkQRhzYF85mG ByvUoeaZWpTF0TDOE1XNYu sjDiLRgtKFP8eLF7rJF4GC Jsf9QcVgOlNVthmRAsjSSw ZNacaRzmrms9RUKkK1Szy2 7bTUzjPG28hCRbyBzbLPIl hOrul8gtLjKfXZThwDHcRw czLQAjj12keZDxEX2RXHR4 CMXcs3ZyRCBkI3Flu07nAB XcqFOzh1MtqJV3eIJpXVOv y9rec2ueyhbkQOSjQVfikK UkE0B5iS4sUSSzrrHDGrlw GIUhVJxKOLD0YZAbgsWvaG woCMNCPN4VSSCcWGslGXPw qILQGMW0IJ4iOFtxnZJuko kpKZFsS8XoM4MdzzZxbAXb IUMvesTvo6lsAZZ6FWEigJ AkjCCpRrPvHeqfRKO1IRgc q8kdDRF4KKTxmPYeiLBgXL dzAmGeNgahIFYgQ6UrK8Pn dwF7OUe3 Disclaimer (test code = 2726011507) o8ggsOHhVRQzh1vdIPYicH FuZzEwMzNcZnRuYmpcdWMx GMrrlxLuKVjcz6ZwJ8QpBk AwMFxhbnNpXGRlZmxhbmcx AIIaKIW2ytVuGEJcPIadZJ EhROtvTb5flSWikBfrAdEq KPHfd2acciJUAUurEhGhH0 29CVHlAZzpe7tbf8NeASJn hAFvj6C4CPIMdfrwtFl3fV puG68ro3E7MtyuW0smUPTr CCHpS7QnXF0iFSAdYxz7UK P6GZK6WLXvHAKnA1MdTT9g QKHcbTGtZXj9o2emdZosYM TaKAH2t8daYZiqneAvYS9n bd1rwOt2x9rcdkSsFTBiHG ZitGHOJGYyE5ZyjChkRn4w wMn6vSyfVhpsXQE7Rln0XX 6gml56uto8nNzeQAAdxvpi WbL2NMctDPUjwtokQCj1II bqWRZmwXZ9SNIqxETiX3Gr DDWjSO9pien4KFB8NHchXF IlLlF5UTLfqKDkRFQehYfz BJqdg281QPT8RzRlSN7uH7 Ihd8X7cT0qvYYuKWJckZWn JmHvJEIbjh3fcMKkSZiqi5 BkGZO2fgJ2wMExzGQwRKEv NC65Hkyaq7KbFwjrx9EeB2 2ybJU1NUgdl9jgDW5pNsA9 oeCqATjpc6xsnC6gAbY8WB cePC8rPL4qHNWytB8sjjgl XHBnYnJkcmhlYWRccGdicm QwCj1ggLyjTHE0WKrrB3cp fE5oVgI2CGjgL4uvnS2jDS m3YNlewJF5AEMevB1zLG9w wqnnt0ogDSmpVDhiDUEmii O3ipF4QXCmyXUmF8CrwW8h ENMkIC7tqzaxe5ifBZT7US lxIJBvZQV8RjKpWJTjv3Us tux3BaKkk8YyiZWaHShtO0 9er126LXUlcwDfV9epiMRl yocteNLgozwuPNeghrG7PO BslsWlb4FiEHCbXRN2XUsk NZoxxZOgYNAqgBkkc6fbC9 RscGFyXHBsYWluXGYxXGZz MjBcbGFuZzEwMzNcaGljaF poFZmlPmYyWIKbNEqjA7ss WqIpO8SnCGXoJeEkeUDtE0 ggVGhpcyByZXBvcnQgbWF5 QZwyW4k3MLKcajSlkPl4sb UyYrDrMPLbNAI8WFzuiHTe MBAqm2VwhxhrxCOfAb4lrN VbKJYxtU9jSVPySIYeVDmv MG1drWp1VBBIqIQspYSjFc XKWPWsDU11ywNyJKGIasof k9N0UNjbLRKvd5QwnNDrG9 qrx7WwGJAsg41kNW8ti8Y7 s7yiDAD5DJ0rt3JgIAVdjK TjwNSiNHNzs6Rgtwvni4Pn XAGhbqMnx2UrCVDymwFtaM TzBCVmkuNsei1wxcVrSVHc DWOhD8JvegaysKxuhrGmVS Yoen7mtwSrZPH8VZTYAAUk VWNpj8OmcB9ewMDXHHD7kF Fjsb3xwgNIeHByCHSjmx29 AOKfIG2fM7guMGNnIPRfow BrnPGxj3VlHYJzpBQ1ePXa DV2TQnRIx43nNSGrSLPTos PiXOSgfNuypNF8yzW2wE1b IChGREEpLlx+IFRoZSBGRE AlZN9egkVxc5EwldUpwYrk EARteXQfn8XkzETvi6DkzL ynw9JqaTKjcDPaYZ5gHAFd clxwYXIgVVRNQiBMYWJvcm L5c9FiTZKuQXSmFEF3rJfl jpk4XCKarJ6zHGJpV5ddzu dmBHodNOYqn2UcgX6rwDFK yIDzk2LncEIenPUCwZSdHU 5tjbKyNAdWCUdCYZM0bsQo PDWki2QcJFngG5fcU41klS jusKh3mJK9VQT9hX0ePhs+ IFxwYXJccGFyIEFwcHJvcH LgHWXpnRocnpMkJ3KragWn cV2hlUBhdlHkGD6rJS7wY7 H1sWWjOXNzcgGdh7goZEvs dmUgYmVlbiByZXZpZXdlZC Zha6BeKAijXLM3TQxyhcOs bmNsdWRpbmcgSCZFLCBTcG EbhQOzYTN3XTwbkwIqcaNr SK0ikF9itJqzyB8ejFYqgU L2oumqHYTlZENveNztRGRk TF1stUReQTKvjuJDoJtmnB DaqJ9hR3NkFUSfHMJbak3l LTMkkJ2hKHexm2OqqfztUJ IoJTTlXZEqysAtdq1fNFQu yTGKPI0KPGtqgHIzr5Uocp DoL7gPZBI2PXIvVlKwYtap XMXnoYJwcPFyLSMhkk11CI PnyL0bhQkvPHOfaL0vvE9o eFluwN1gBrSdMvDeXHsaPR 9tENZuJ6tzlQTvONLcLBFs F7vlCuRcpA1dlWjqNPtaWj DpWqZyLYhwCUY0zY== Embedded Images (test code = 7211682261) [facility] GLUCOSE (AUTOMATED)2021-07-07 17:04:49* Test Item Value Reference Range Interpretation Comme nts POCT GLU (test code = 1284725015) 295 mg/dL 70-110 H Lab Interpretation (test cod e = 94290-8) Abnormal [facility] GLUCOSE (AUTOMATED)2021-07-07 17:04:49* Test Item Value Reference Range Interpretation Comme nts POCT GLU (test code = 7932135847) 295 mg/dL 70-110 H Lab Interpretation (test cod e = 99542-4) Abnormal [facility] GLUCOSE (AUTOMATED)2021-07-07 14:55:34* Test Item Value Reference Range Interpretation Comme nts POCT GLU (test code = 2456443175) 191 mg/dL 70-110 H Lab Interpretation (test cod e = 46070-5) Abnormal [facility] GLUCOSE (AUTOMATED)2021-07-07 14:55:34* Test Item Value Reference Range Interpretation Comme nts POCT GLU (test code = 7410597610) 191 mg/dL 70-110 H Lab Interpretation (test cod e = 01127-4) Abnormal [facility] METABOLIC PANEL (NA, K, CL, CO2, GLUCOSE, BUN, CREATININE, CA)2021-07-07 13:14:37* Test Item Value Reference Range Interpretation Comme nts NA (test code = 1851299734) 139 mmol/L 135-145 K (test code = 3776662119) 3.9 mmol/L 3.5-5.0 CL (test code = 5226682560) 111 mmol/L 98-108 H CO2 TOTAL (test code = 3745873448) 22 mmol/L 23-31 L AGAP (test code = 7309574364) 2-16 BUN (test code = 6131367304) 19 mg/dL 7-23 GLUCOSE (test code = 5771346124) 189 mg/dL 70-110 H CREATININE (test code = 4153440809) 0.87 mg/dL 0.60-1.25 CALCIUM (test code = 1343098476) 8.5 mg/dL 8.6-10.6 L eGFR (test code = 8301910741) mL/min/1.73m2 BRYSON (test code = BRYSON) Association [...] imaging tests). Lab Interpretation (test code = 53631-9) Abnormal [facility] METABOLIC PANEL (NA, K, CL, CO2, GLUCOSE, BUN, CREATININE, CA)2021-07-07 13:14:37* Test Item Value Reference Range Interpretation Comme nts NA (test code = 9756913618) 139 mmol/L 135-145 K (test code = 7764817872) 3.9 mmol/L 3.5-5.0 CL (test code = 0816575566) 111 mmol/L 98-108 H CO2 TOTAL (test code = 8384151727) 22 mmol/L 23-31 L AGAP (test code = 8022820010) 2-16 BUN (test code = 1685055583) 19 mg/dL 7-23 GLUCOSE (test code = 3545955441) 189 mg/dL 70-110 H CREATININE (test code = 7490067559) 0.87 mg/dL 0.60-1.25 CALCIUM (test code = 4689120933) 8.5 mg/dL 8.6-10.6 L eGFR (test code = 0407543578) mL/min/1.73m2 BRYSON (test code = BRYSON) Association [...] imaging tests). Lab Interpretation (test code = 07989-5) Abnormal [facility] GLUCOSE (AUTOMATED)2021-07-07 13:02:32* Test Item Value Reference Range Interpretation Comme [facility] POCT GLU (test code = 9697859003) 174 mg/dL 70-110 H Lab Interpretation (test cod e = 69820-2) Abnormal [facility] GLUCOSE (AUTOMATED)2021-07-07 13:02:32* Test Item Value Reference Range Interpretation Comme [facility] POCT GLU (test code = 0241425363) 174 mg/dL 70-110 H Lab Interpretation (test cod e = 09432-8) Abnormal [facility] WITH [id number] 11:32:04* Test Item Value Reference Range Interpretation Comme nts WBC (test code = 6690-2) See_Comment [Automated messa Kwanji] The system which generated this result transmitted reference range: 4.20 - 10.70 10*3/?L. The reference range was not used to interpret this result as normal/abnormal. RBC (test code = 789-8) See_Comment L [Automated messa Kwanji] The system which generated this result transmitted [...] 33.1 g/dL 31.2-35.0 RDW-SD (test code = 38709-5) 43.2 fL 38.5-51.6 RDW-CV (test code = 788-0) 12.5 % 12.1-15.4 PLT (test code = 777-3) See_Comment [Automated messa ge] The system which generated this result transmitted reference range: 150 - 328 10*3/?L. The reference range was not used to interpret this result as normal/abnormal. MPV (test code = 63530-0) 12.2 fL 9.8-13.0 NRBC/100 WBC (test code = 6424957522) See_Comment [Automated [employer] ssage] The system which generated this result transmitted reference range: 0.0 - 10.0 /100 WBCs. The reference range was not used to interpret this result as normal/abnormal. NRBC x10^3 (test code = 2987086281) <0.01 See_Comment [Automated messa ge] The system which generated this result transmitted reference range: 10*3/?L. The reference range was not used to interpret this result as normal/abnormal. GRAN MAT (NEUT) % (test code = 770-8) 66.0 % IMM GRAN % (test code = 0591544676) 0.50 % LYMPH % (test code = 736-9) 19.7 % MONO % (test code = 5905-5) 11.3 % EOS % (test code = 713-8) 2.1 % BASO % (test code = 706-2) 0.4 % GRAN MAT x10^3(ANC) (test code = 2703952763) 6.82 10*3/uL 1.99-6.95 IMM GRAN x10^3 (test code = 7467055928) 0.05 10*3/uL 0.00-0.06 LYMPH x10^3 (test code = 731-0) 2.03 10*3/uL 1.09-3.23 MONO x10^3 (test code = 742-7) 1.17 10*3/uL 0.36-1.02 H EOS x10^3 (test code = 711-2) 0.22 10*3/uL 0.06-0.53 BASO x10^3 (test code = 704-7) 0.04 10*3/uL 0.01-0.09 Lab Interpretation (test code = 64607-8) Abnormal [facility] WITH [id number] 11:32:04* Test Item Value Reference Range Interpretation [...] 33.1 g/dL 31.2-35.0 RDW-SD (test code = 51744-4) 43.2 fL 38.5-51.6 RDW-CV (test code = 788-0) 12.5 % 12.1-15.4 PLT (test code = 777-3) See_Comment [Automated messa ge] The system which generated this result transmitted reference range: 150 - 328 10*3/?L. The reference range was not used to interpret this result as normal/abnormal. MPV (test code = 69843-6) 12.2 fL 9.8-13.0 NRBC/100 WBC (test code = 7886409769) See_Comment [Automated [employer] ssage] The system which generated this result transmitted reference range: 0.0 - 10.0 /100 WBCs. The reference range was not used to interpret this result as normal/abnormal. NRBC x10^3 (test code = 4515754186) <0.01 See_Comment [Automated messa ge] The system which generated this result transmitted reference range: 10*3/?L. The reference range was not used to interpret this result as normal/abnormal. GRAN MAT (NEUT) % (test code = 770-8) 66.0 % IMM GRAN % (test code = 5344640549) 0.50 % LYMPH % (test code = 736-9) 19.7 % MONO % (test code = 5905-5) 11.3 % EOS % (test code = 713-8) 2.1 % BASO % (test code = 706-2) 0.4 % GRAN MAT x10^3(ANC) (test code = 8575843295) 6.82 10*3/uL 1.99-6.95 IMM GRAN x10^3 (test code = 5944438758) 0.05 10*3/uL 0.00-0.06 LYMPH x10^3 (test code = 731-0) 2.03 10*3/uL 1.09-3.23 MONO x10^3 (test code = 742-7) 1.17 10*3/uL 0.36-1.02 H EOS x10^3 (test code = 711-2) 0.22 10*3/uL 0.06-0.53 BASO x10^3 (test code = 704-7) 0.04 10*3/uL 0.01-0.09 Lab Interpretation (test code = 69927-9) Abnormal [facility] GLUCOSE (AUTOMATED)2021-07-07 05:09:45* Test Item Value Reference Range Interpretation Comme nts POCT GLU (test code = 7034410827) 144 mg/dL 70-110 H Lab Interpretation (test cod e = 35513-7) Abnormal [facility] GLUCOSE (AUTOMATED)2021-07-07 05:09:45* Test Item Value Reference Range Interpretation Comme nts POCT GLU (test code = 5695883620) 144 mg/dL 70-110 H Lab Interpretation (test cod e = 39037-6) Abnormal [facility] GLUCOSE (AUTOMATED)2021-07-06 21:53:08* Test Item Value Reference Range Interpretation Comme nts POCT GLU (test code = 8957095000) 175 mg/dL 70-110 H Lab Interpretation (test cod e = 75165-2) [facility] 21:53:08* Test Item Value Reference Range Interpretation Comme nts POCT GLU (test code = 1694266338) 175 mg/dL 70-110 H Lab Interpretation (test cod e = 20628-1) Abnormal [facility] WITH [id number] 18:53:33* Test Item Value Reference Range Interpretation [...] 33.5 g/dL 31.2-35.0 RDW-SD (test code = 73035-8) 42.3 fL 38.5-51.6 RDW-CV (test code = 788-0) 12.4 % 12.1-15.4 PLT (test code = 777-3) See_Comment [Automated messa ge] The system which generated this result transmitted reference range: 150 - 328 10*3/?L. The reference range was not used to interpret this result as normal/abnormal. MPV (test code = 15848-1) 12.0 fL 9.8-13.0 NRBC/100 WBC (test code = 5043117440) See_Comment [Automated me ssage] The system which generated this result transmitted reference range: 0.0 - 10.0 /100 WBCs. The reference range was not used to interpret this result as normal/abnormal. NRBC x10^3 (test code = 4038994830) <0.01 See_Comment [Automated messa ge] The system which generated this result transmitted reference range: 10*3/?L. The reference range was not used to interpret this result as normal/abnormal. GRAN MAT (NEUT) % (test code = 770-8) 71.5 % IMM GRAN % (test code = 1348382449) 0.40 % LYMPH % (test code = 736-9) 16.7 % MONO % (test code = 5905-5) 10.6 % EOS % (test code = 713-8) 0.5 % BASO % (test code = 706-2) 0.3 % GRAN MAT x10^3(ANC) (test code = 4163562084) 7.86 10*3/uL 1.99-6.95 H IMM GRAN x10^3 (test code = 9555426755) 0.04 10*3/uL 0.00-0.06 LYMPH x10^3 (test code = 731-0) 1.84 10*3/uL 1.09-3.23 MONO x10^3 (test code = 742-7) 1.16 10*3/uL 0.36-1.02 H EOS x10^3 (test code = 711-2) 0.06 10*3/uL 0.06-0.53 BASO x10^3 (test code = 704-7) 0.03 10*3/uL 0.01-0.09 Lab Interpretation (test code = 70847-8) Abnormal [facility] WITH [id number] 18:53:33* Test Item Value Reference Range Interpretation [...] 33.5 g/dL 31.2-35.0 RDW-SD (test code = 19209-0) 42.3 fL 38.5-51.6 RDW-CV (test code = 788-0) 12.4 % 12.1-15.4 PLT (test code = 777-3) See_Comment [Automated messa ge] The system which generated this result transmitted reference range: 150 - 328 10*3/?L. The reference range was not used to interpret this result as normal/abnormal. MPV (test code = 37930-2) 12.0 fL 9.8-13.0 NRBC/100 WBC (test code = 0539905908) See_Comment [Automated [employer] ssage] The system which generated this result transmitted reference range: 0.0 - 10.0 /100 WBCs. The reference range was not used to interpret this result as normal/abnormal. NRBC x10^3 (test code = 3249411743) <0.01 See_Comment [Automated messa ge] The system which generated this result transmitted reference range: 10*3/?L. The reference range was not used to interpret this result as normal/abnormal. GRAN MAT (NEUT) % (test code = 770-8) 71.5 % IMM GRAN % (test code = 4228738813) 0.40 % LYMPH % (test code = 736-9) 16.7 % MONO % (test code = 5905-5) 10.6 % EOS % (test code = 713-8) 0.5 % BASO % (test code = 706-2) 0.3 % GRAN MAT x10^3(ANC) (test code = 1278963845) 7.86 10*3/uL 1.99-6.95 H IMM GRAN x10^3 (test code = 1385614081) 0.04 10*3/uL 0.00-0.06 LYMPH x10^3 (test code = 731-0) 1.84 10*3/uL 1.09-3.23 MONO x10^3 (test code = 742-7) 1.16 10*3/uL 0.36-1.02 H EOS x10^3 (test code = 711-2) 0.06 10*3/uL 0.06-0.53 BASO x10^3 (test code = 704-7) 0.03 10*3/uL 0.01-0.09 Lab Interpretation (test code = 03891-7) Abnormal [facility] WITH [id number] 18:53:33* Test Item Value Reference Range Interpretation [...] 33.5 g/dL 31.2-35.0 RDW-SD (test code = 78885-3) 42.3 fL 38.5-51.6 RDW-CV (test code = 788-0) 12.4 % 12.1-15.4 PLT (test code = 777-3) See_Comment [Automated messa ge] The system which generated this result transmitted reference range: 150 - 328 10*3/?L. The reference range was not used to interpret this result as normal/abnormal. MPV (test code = 38732-6) 12.0 fL 9.8-13.0 NRBC/100 WBC (test code = 7179196710) See_Comment [Automated me ssage] The system which generated this result transmitted reference range: 0.0 - 10.0 /100 WBCs. The reference range was not used to interpret this result as normal/abnormal. NRBC x10^3 (test code = 3491338020) <0.01 See_Comment [Automated messa ge] The system which generated this result transmitted reference range: 10*3/?L. The reference range was not used to interpret this result as normal/abnormal. GRAN MAT (NEUT) % (test code = 770-8) 71.5 % IMM GRAN % (test code = 5170939241) 0.40 % LYMPH % (test code = 736-9) 16.7 % MONO % (test code = 5905-5) 10.6 % EOS % (test code = 713-8) 0.5 % BASO % (test code = 706-2) 0.3 % GRAN MAT x10^3(ANC) (test code = 8050068175) 7.86 10*3/uL 1.99-6.95 H IMM GRAN x10^3 (test code = 6241596936) 0.04 10*3/uL 0.00-0.06 LYMPH x10^3 (test code = 731-0) 1.84 10*3/uL 1.09-3.23 MONO x10^3 (test code = 742-7) 1.16 10*3/uL 0.36-1.02 H EOS x10^3 (test code = 711-2) 0.06 10*3/uL 0.06-0.53 BASO x10^3 (test code = 704-7) 0.03 10*3/uL 0.01-0.09 Lab Interpretation (test code = 83754-2) [facility] Please draw trough BEFORE the 4th dose scheduled at 1200, but no more than 60 mins before the dose is due.2021-07-06 17:34:01* Test Item Value Reference Range Interpretation Comme nts VANCO TROUGH (test code = 1627961099) 13.4 ug/mL 10.0-20.0 BRYSON (test code = BRYSON) Toxic Range: ?>20 ug/mL 15-20 ug/mL is recommended for severe infection or when Vancomycin ELISE is greater than or equal to 2. Lab Interpretation (test code = 85289-5) [facility] - Please draw trough BEFORE the 4th dose scheduled at 1200, but no more than 60 mins before the dose is due.2021-07-06 17:34:01* Test Item Value Reference Range Interpretation Comme nts VANCO TROUGH (test code = 3338888872) 13.4 ug/mL 10.0-20.0 BRYSON (test code = BRYSON) Toxic Range: ?>20 ug/mL 15-20 ug/mL is recommended for severe infection or when Vancomycin ELISE is greater than or equal to 2. Lab Interpretation (test code = 66050-4) [facility] trough BEFORE the 4th dose scheduled at 1200, but no more than 60 mins before the dose is due.2021-07-06 17:34:01* Test Item Value Reference Range Interpretation Comme nts VANCO TROUGH (test code = 8692542336) 13.4 ug/mL 10.0-20.0 BRYSON (test code = BRYSON) Toxic Range: ?>20 ug/mL 15-20 ug/mL is recommended for severe infection or when Vancomycin ELISE is greater than or equal to 2. Lab Interpretation (test code = 19759-6) Normal [facility] GLUCOSE (AUTOMATED)2021-07-06 16:47:55* Test Item Value Reference Range Interpretation Comme nts POCT GLU (test code = 5998621458) 321 mg/dL 70-110 H Lab Interpretation (test cod e = 23807-6) Abnormal [facility] GLUCOSE (AUTOMATED)2021-07-06 16:47:55* Test Item Value Reference Range Interpretation Comme nts POCT GLU (test code = 3988867271) 321 mg/dL 70-110 H Lab Interpretation (test cod e = 15354-9) Abnormal [facility] GLUCOSE (AUTOMATED)2021-07-06 16:47:55* Test Item Value Reference Range Interpretation Comme nts POCT GLU (test code = 6130738763) 321 mg/dL 70-110 H Lab Interpretation (test cod e = 25311-2) Abnormal [facility] GLUCOSE (AUTOMATED)2021-07-06 12:56:24* Test Item Value Reference Range Interpretation Comme nts POCT GLU (test code = 9344923550) 351 mg/dL 70-110 H Lab Interpretation (test cod e = 33462-5) Abnormal [facility] GLUCOSE (AUTOMATED)2021-07-06 12:56:24* Test Item Value Reference Range Interpretation Comme nts POCT GLU (test code = 5922871109) 351 mg/dL 70-110 H Lab Interpretation (test cod e = 50390-3) Abnormal [facility] GLUCOSE (AUTOMATED)2021-07-06 12:56:24* Test Item Value Reference Range Interpretation Comme nts POCT GLU (test code = 7983156841) 351 mg/dL 70-110 H Lab Interpretation (test cod e = 77914-4) Abnormal [facility]. METABOLIC PANEL ([id number])2021-07-06 12:27:31* Test Item Value Reference Range Interpretation Comme nts NA (test code = 5789505262) 136 mmol/L 135-145 K (test code = 5102179940) 4.9 mmol/L 3.5-5.0 CL (test code = 8017052927) 106 mmol/L 98-108 CO2 TOTAL (test code = 9261500354) 18 mmol/L 23-31 L AGAP (test code = 1054052153) 2-16 BUN (test code = 2307643255) 19 mg/dL 7-23 GLUCOSE (test code = 9142890290) 346 mg/dL 70-110 H CREATININE (test code = 9142465763) 0.91 mg/dL 0.60-1.25 TOTAL BILI (test code = 5396691041) 0.4 mg/dL 0.1-1.1 CALCIUM (test code = 6737312034) 8.5 mg/dL 8.6-10.6 L T PROTEIN (test code = 0021954855) 5.9 g/dL 6.3-8.2 L ALBUMIN (test code = 2457885258) 2.9 g/dL 3.5-5.0 L ALK PHOS (test code = 5187984940) 105 U/L 34-122 ALTv (test code = 1742-6) 19 U/L 5-50 AST(SGOT) (test code = 7117581913) 24 U/L 13-40 eGFR (test code = 9301672692) mL/min/1.73m2 BRYSON (test code = BRYSON) Association [...] imaging tests). Lab Interpretation (test code = 07508-3) Abnormal [facility]. METABOLIC PANEL (10421)2021-07-06 12:27:31* Test Item Value Reference Range Interpretation Comme nts NA (test code = 2922715488) 136 mmol/L 135-145 K (test code = 4636861558) 4.9 mmol/L 3.5-5.0 CL (test code = 0074435521) 106 mmol/L 98-108 CO2 TOTAL (test code = 0856095300) 18 mmol/L 23-31 L AGAP (test code = 2534273172) 2-16 BUN (test code = 1848096163) 19 mg/dL 7-23 GLUCOSE (test code = 6870828777) 346 mg/dL 70-110 H CREATININE (test code = 0501768177) 0.91 mg/dL 0.60-1.25 TOTAL BILI (test code = 3002493702) 0.4 mg/dL 0.1-1.1 CALCIUM (test code = 5723869722) 8.5 mg/dL 8.6-10.6 L T PROTEIN (test code = 2025961151) 5.9 g/dL 6.3-8.2 L ALBUMIN (test code = 0887092143) 2.9 g/dL 3.5-5.0 L ALK PHOS (test code = 2384023390) 105 U/L 34-122 ALTv (test code = 1742-6) 19 U/L 5-50 AST(SGOT) (test code = 7727737792) 24 U/L 13-40 eGFR (test code = 7733462438) mL/min/1.73m2 BRYSON (test code = BRYSON) Association [...] imaging tests). Lab Interpretation (test code = 49132-9) Abnormal [facility]. METABOLIC PANEL (16577)2021-07-06 12:27:31* Test Item Value Reference Range Interpretation Comme nts NA (test code = 8746823701) 136 mmol/L 135-145 K (test code = 7565203785) 4.9 mmol/L 3.5-5.0 CL (test code = 0658501470) 106 mmol/L 98-108 CO2 TOTAL (test code = 7241912341) 18 mmol/L 23-31 L AGAP (test code = 7751458893) 2-16 BUN (test code = 7155975254) 19 mg/dL 7-23 GLUCOSE (test code = 7486893106) 346 mg/dL 70-110 H CREATININE (test code = 0612520914) 0.91 mg/dL 0.60-1.25 TOTAL BILI (test code = 2857662087) 0.4 mg/dL 0.1-1.1 CALCIUM (test code = 8338627186) 8.5 mg/dL 8.6-10.6 L T PROTEIN (test code = 1937557120) 5.9 g/dL 6.3-8.2 L ALBUMIN (test code = 5493464174) 2.9 g/dL 3.5-5.0 L ALK PHOS (test code = 0493682598) 105 U/L 34-122 ALTv (test code = 1742-6) 19 U/L 5-50 AST(SGOT) (test code = 7202797828) 24 U/L 13-40 eGFR (test code = 9688473236) mL/min/1.73m2 BRYSON (test code = BRYSON) Association [...] imaging tests). Lab Interpretation (test code = 95777-3) Abnormal [facility] GLUCOSE (AUTOMATED)2021-07-05 22:49:47* Test Item Value Reference Range Interpretation Comme nts POCT GLU (test code = 8007899378) 175 mg/dL 70-110 H Lab Interpretation (test cod e = 98115-7) Abnormal [facility] GLUCOSE (AUTOMATED)2021-07-05 22:49:47* Test Item Value Reference Range Interpretation Comme nts POCT GLU (test code = 7339147320) 175 mg/dL 70-110 H Lab Interpretation (test cod e = 60359-8) Abnormal [facility] GLUCOSE (AUTOMATED)2021-07-05 22:49:47* Test Item Value Reference Range Interpretation Comme nts POCT GLU (test code = 1277617044) 175 mg/dL 70-110 H Lab Interpretation (test cod e = 72204-2) Abnormal [facility] GLUCOSE (AUTOMATED)2021-07-05 22:49:05* Test Item Value Reference Range Interpretation Comme nts POCT GLU (test code = 3057472145) 170 mg/dL 70-110 H Lab Interpretation (test cod e = 09948-1) [facility]:05* Test Item Value Reference Range Interpretation Comme nts POCT GLU (test code = 6030911278) 185 mg/dL 70-110 H Lab Interpretation (test cod e = 34927-5) [facility] 22:49:05* Test Item Value Reference Range Interpretation Comme nts POCT GLU (test code = 3380106998) 170 mg/dL 70-110 H Lab Interpretation (test cod e = 90481-6) [facility] 22:49:05* Test Item Value Reference Range Interpretation Comme nts POCT GLU (test code = 7989977690) 185 mg/dL 70-110 H Lab Interpretation (test cod e = 15940-3) Abnormal [facility] GLUCOSE (AUTOMATED)2021-07-05 22:49:05* Test Item Value Reference Range Interpretation Comme nts POCT GLU (test code = 2508048937) 170 mg/dL 70-110 H Lab Interpretation (test cod e = 91026-4) Abnormal [facility] GLUCOSE (AUTOMATED)2021-07-05 22:49:05* Test Item Value Reference Range Interpretation Comme nts POCT GLU (test code = 7301150836) 185 mg/dL 70-110 H Lab Interpretation (test cod e = 42884-0) [facility] 11:56:21* Test Item Value Reference Range Interpretation Comme nts POCT GLU (test code = 7639285192) 167 mg/dL 70-110 H Lab Interpretation (test cod e = 46643-6) [facility] 11:56:21* Test Item Value Reference Range Interpretation Comme nts POCT GLU (test code = 2619301666) 167 mg/dL 70-110 H Lab Interpretation (test cod e = 76538-9) [facility] 11:56:21* Test Item Value Reference Range Interpretation Comme nts POCT GLU (test code = 8422205463) 167 mg/dL 70-110 H Lab Interpretation (test cod e = 28173-7) Abnormal [facility] GLUCOSE (AUTOMATED)2021-07-05 11:56:03* Test Item Value Reference Range Interpretation Comme nts POCT GLU (test code = 9181839293) 109 mg/dL 70-110 Lab Interpretation (test cod e = 14482-0) Normal [facility] GLUCOSE (AUTOMATED)2021-07-05 11:56:03* Test Item Value Reference Range Interpretation Comme nts POCT GLU (test code = 3334653568) 109 mg/dL 70-110 Lab Interpretation (test cod e = 34732-0) Normal [facility] GLUCOSE (AUTOMATED)2021-07-05 11:56:03* Test Item Value Reference Range Interpretation Comme nts POCT GLU (test code = 0839210724) 109 mg/dL 70-110 Lab Interpretation (test cod e = 49733-9) [id number] 11:48:19* Test Item Value Reference Range Interpretation Comme nts NT-proBNP (test code = 7465754846) 452 pg/mL See_Comment H [Automated message] The system which generated this result transmitted reference range: <=125. The reference range was not used to interpret this result as normal/abnormal. BRYSON (test code = BRYSON) Biotin has been reported to cause a negative bias, interpret results relative to patient's use of biotin. Lab Interpretation (test code = 28890-8) [facility] [id number] 11:48:19* Test Item Value Reference Range Interpretation Comme nts NT-proBNP (test code = 2330008175) 452 pg/mL See_Comment H [Automated message] The system which generated this result transmitted reference range: <=125. The reference range was not used to interpret this result as normal/abnormal. BRYSON (test code = BRYSON) Biotin has been reported to cause a negative bias, interpret results relative to patient's use of biotin. Lab Interpretation (test code = 73331-9) [facility] [id number] 11:48:19* Test Item Value Reference Range Interpretation Comme nts NT-proBNP (test code = 8858375981) 452 pg/mL See_Comment H [Automated message] The system which generated this result transmitted reference range: <=125. The reference range was not used to interpret this result as normal/abnormal. BRYSON (test code = BRYSON) Biotin has been reported to cause a negative bias, interpret results relative to patient's use of biotin. Lab Interpretation (test code = 84529-6) Abnormal [facility]2021-09-28 11:42:19* Test Item Value Reference Range Interpretation Comme nts MAGNESIUM (test code = 9643134634) 2.1 mg/dL 1.7-2.4 Lab Interpretation (test cod e = 21411-7) Normal [facility]2021-09-28 11:42:19* Test Item Value Reference Range Interpretation Comme nts MAGNESIUM (test code = 5308013218) 2.1 mg/dL 1.7-2.4 Lab Interpretation (test cod e = 91598-0) Normal [facility]2021-09-28 11:42:19* Test Item Value Reference Range Interpretation Comme nts MAGNESIUM (test code = 7288682030) 2.1 mg/dL 1.7-2.4 Lab Interpretation (test cod e = 83124-1) Normal [facility]. METABOLIC PANEL (52781)2021-07-05 11:41:59* Test Item Value Reference Range Interpretation Comme nts NA (test code = 1157590235) 136 mmol/L 135-145 K (test code = 0124712623) 3.8 mmol/L 3.5-5.0 CL (test code = 8994960576) 107 mmol/L 98-108 CO2 TOTAL (test code = 7762971447) 19 mmol/L 23-31 L AGAP (test code = 8200310913) 2-16 BUN (test code = 3938795381) 14 mg/dL 7-23 GLUCOSE (test code = 6047333600) 152 mg/dL 70-110 H CREATININE (test code = 5812289682) 0.82 mg/dL 0.60-1.25 TOTAL BILI (test code = 6464817466) 0.4 mg/dL 0.1-1.1 CALCIUM (test code = 2408059886) 8.2 mg/dL 8.6-10.6 L T PROTEIN (test code = 1359453523) 5.9 g/dL 6.3-8.2 L ALBUMIN (test code = 7179231731) 2.9 g/dL 3.5-5.0 L ALK PHOS (test code = 0241897729) 97 U/L 34-122 ALTv (test code = 1742-6) 17 U/L 5-50 AST(SGOT) (test code = 7506527337) 25 U/L 13-40 eGFR (test code = 0352590590) mL/min/1.73m2 BRYSON (test code = BRYSON) Association [...] imaging tests). Lab Interpretation (test code = 60653-1) Abnormal [facility] METABOLIC PANEL (92631)2021-07-05 11:41:59* Test Item Value Reference Range Interpretation Comme nts NA (test code = 1849075421) 136 mmol/L 135-145 K (test code = 7218764893) 3.8 mmol/L 3.5-5.0 CL (test code = 2295087516) 107 mmol/L 98-108 CO2 TOTAL (test code = 2373299883) 19 mmol/L 23-31 L AGAP (test code = 7056852602) 2-16 BUN (test code = 3389616249) 14 mg/dL 7-23 GLUCOSE (test code = 9949143032) 152 mg/dL 70-110 H CREATININE (test code = 2389543589) 0.82 mg/dL 0.60-1.25 TOTAL BILI (test code = 8379240641) 0.4 mg/dL 0.1-1.1 CALCIUM (test code = 8577794249) 8.2 mg/dL 8.6-10.6 L T PROTEIN (test code = 8328474591) 5.9 g/dL 6.3-8.2 L ALBUMIN (test code = 5828359076) 2.9 g/dL 3.5-5.0 L ALK PHOS (test code = 1626344308) 97 U/L 34-122 ALTv (test code = 1742-6) 17 U/L 5-50 AST(SGOT) (test code = 9191919142) 25 U/L 13-40 eGFR (test code = 9721574509) mL/min/1.73m2 BRYSON (test code = BRYSON) Association [...] imaging tests). Lab Interpretation (test code = 24181-2) Abnormal [facility]. METABOLIC PANEL (10796)2021-07-05 11:41:59* Test Item Value Reference Range Interpretation Comme nts NA (test code = 7279182396) 136 mmol/L 135-145 K (test code = 8680081284) 3.8 mmol/L 3.5-5.0 CL (test code = 7819384552) 107 mmol/L 98-108 CO2 TOTAL (test code = 5280088131) 19 mmol/L 23-31 L AGAP (test code = 5932517943) 2-16 BUN (test code = 4090437375) 14 mg/dL 7-23 GLUCOSE (test code = 0518487304) 152 mg/dL 70-110 H CREATININE (test code = 9587020496) 0.82 mg/dL 0.60-1.25 TOTAL BILI (test code = 6983769294) 0.4 mg/dL 0.1-1.1 CALCIUM (test code = 7780425955) 8.2 mg/dL 8.6-10.6 L T PROTEIN (test code = 2342476893) 5.9 g/dL 6.3-8.2 L ALBUMIN (test code = 2491575832) 2.9 g/dL 3.5-5.0 L ALK PHOS (test code = 7513325398) 97 U/L 34-122 ALTv (test code = 1742-6) 17 U/L 5-50 AST(SGOT) (test code = 0709532067) 25 U/L 13-40 eGFR (test code = 2611965884) mL/min/1.73m2 BRYSON (test code = BRYSON) Association [...] imaging tests). Lab Interpretation (test code = 72661-3) Abnormal [facility] WITH [id number] 11:13:33* Test Item Value Reference Range Interpretation Comme nts WBC (test code = 6690-2) See_Comment H [Automated PIERIS [employer]] The system which generated this result transmitted reference range: 4.20 - 10.70 10*3/?L. The reference range was not used to interpret this result as normal/abnormal. RBC (test code = 789-8) See_Comment L [Automated PIERIS [employer]] The system which generated this result transmitted [...] 34.2 g/dL 31.2-35.0 RDW-SD (test code = 11512-0) 42.6 fL 38.5-51.6 RDW-CV (test code = 788-0) 12.3 % 12.1-15.4 PLT (test code = 777-3) See_Comment [Automated messa ge] The system which generated this result transmitted reference range: 150 - 328 10*3/?L. The reference range was not used to interpret this result as normal/abnormal. MPV (test code = 44761-1) 12.5 fL 9.8-13.0 NRBC/100 WBC (test code = 6498866793) See_Comment [Automated [employer] ssage] The system which generated this result transmitted reference range: 0.0 - 10.0 /100 WBCs. The reference range was not used to interpret this result as normal/abnormal. NRBC x10^3 (test code = 1649232181) <0.01 See_Comment [Automated PIERIS [employer] ge] The system which generated this result transmitted reference range: 10*3/?L. The reference range was not used to interpret this result as normal/abnormal. GRAN MAT (NEUT) % (test code = 770-8) 72.3 % IMM GRAN % (test code = 6170054717) 0.50 % LYMPH % (test code = 736-9) 14.0 % MONO % (test code = 5905-5) 11.4 % EOS % (test code = 713-8) 1.4 % BASO % (test code = 706-2) 0.4 % GRAN MAT x10^3(ANC) (test code = 6069831477) 7.97 10*3/uL 1.99-6.95 H IMM GRAN x10^3 (test code = 5781959640) 0.05 10*3/uL 0.00-0.06 LYMPH x10^3 (test code = 731-0) 1.54 10*3/uL 1.09-3.23 MONO x10^3 (test code = 742-7) 1.26 10*3/uL 0.36-1.02 H EOS x10^3 (test code = 711-2) 0.15 10*3/uL 0.06-0.53 BASO x10^3 (test code = 704-7) 0.04 10*3/uL 0.01-0.09 Lab Interpretation (test code = 01127-3) Abnormal [facility] WITH [id number] 11:13:33* Test Item Value Reference Range Interpretation [...] 34.2 g/dL 31.2-35.0 RDW-SD (test code = 03971-8) 42.6 fL 38.5-51.6 RDW-CV (test code = 788-0) 12.3 % 12.1-15.4 PLT (test code = 777-3) See_Comment [Automated messa ge] The system which generated this result transmitted reference range: 150 - 328 10*3/?L. The reference range was not used to interpret this result as normal/abnormal. MPV (test code = 84422-5) 12.5 fL 9.8-13.0 NRBC/100 WBC (test code = 8103250227) See_Comment [Automated me ssage] The system which generated this result transmitted reference range: 0.0 - 10.0 /100 WBCs. The reference range was not used to interpret this result as normal/abnormal. NRBC x10^3 (test code = 1813950989) <0.01 See_Comment [Automated messa ge] The system which generated this result transmitted reference range: 10*3/?L. The reference range was not used to interpret this result as normal/abnormal. GRAN MAT (NEUT) % (test code = 770-8) 72.3 % IMM GRAN % (test code = 4976315333) 0.50 % LYMPH % (test code = 736-9) 14.0 % MONO % (test code = 5905-5) 11.4 % EOS % (test code = 713-8) 1.4 % BASO % (test code = 706-2) 0.4 % GRAN MAT x10^3(ANC) (test code = 0670144380) 7.97 10*3/uL 1.99-6.95 H IMM GRAN x10^3 (test code = 1448665144) 0.05 10*3/uL 0.00-0.06 LYMPH x10^3 (test code = 731-0) 1.54 10*3/uL 1.09-3.23 MONO x10^3 (test code = 742-7) 1.26 10*3/uL 0.36-1.02 H EOS x10^3 (test code = 711-2) 0.15 10*3/uL 0.06-0.53 BASO x10^3 (test code = 704-7) 0.04 10*3/uL 0.01-0.09 Lab Interpretation (test code = 75782-9) Abnormal [facility] WITH [id number] 11:13:33* Test Item Value Reference Range Interpretation [...] 34.2 g/dL 31.2-35.0 RDW-SD (test code = 90540-6) 42.6 fL 38.5-51.6 RDW-CV (test code = 788-0) 12.3 % 12.1-15.4 PLT (test code = 777-3) See_Comment [Automated messa ge] The system which generated this result transmitted reference range: 150 - 328 10*3/?L. The reference range was not used to interpret this result as normal/abnormal. MPV (test code = 87654-3) 12.5 fL 9.8-13.0 NRBC/100 WBC (test code = 3961868673) See_Comment [Automated [employer] ssage] The system which generated this result transmitted reference range: 0.0 - 10.0 /100 WBCs. The reference range was not used to interpret this result as normal/abnormal. NRBC x10^3 (test code = 9231558495) <0.01 See_Comment [Automated messa ge] The system which generated this result transmitted reference range: 10*3/?L. The reference range was not used to interpret this result as normal/abnormal. GRAN MAT (NEUT) % (test code = 770-8) 72.3 % IMM GRAN % (test code = 3710134575) 0.50 % LYMPH % (test code = 736-9) 14.0 % MONO % (test code = 5905-5) 11.4 % EOS % (test code = 713-8) 1.4 % BASO % (test code = 706-2) 0.4 % GRAN MAT x10^3(ANC) (test code = 8749299193) 7.97 10*3/uL 1.99-6.95 H IMM GRAN x10^3 (test code = 8324099185) 0.05 10*3/uL 0.00-0.06 LYMPH x10^3 (test code = 731-0) 1.54 10*3/uL 1.09-3.23 MONO x10^3 (test code = 742-7) 1.26 10*3/uL 0.36-1.02 H EOS x10^3 (test code = 711-2) 0.15 10*3/uL 0.06-0.53 BASO x10^3 (test code = 704-7) 0.04 10*3/uL 0.01-0.09 Lab Interpretation (test code = 87530-8) Abnormal [facility] GLUCOSE (AUTOMATED)2021-07-04 18:13:05* Test Item Value Reference Range Interpretation Comme nts POCT GLU (test code = 6892260649) 237 mg/dL 70-110 H Lab Interpretation (test cod e = 29989-8) Abnormal [facility] GLUCOSE (AUTOMATED)2021-07-04 18:13:05* Test Item Value Reference Range Interpretation Comme nts POCT GLU (test code = 4903751163) 237 mg/dL 70-110 H Lab Interpretation (test cod e = 41282-2) Abnormal [facility] GLUCOSE (AUTOMATED)2021-07-04 18:13:05* Test Item Value Reference Range Interpretation Comme nts POCT GLU (test code = 4655489944) 237 mg/dL 70-110 H Lab Interpretation (test cod e = 01123-6) [facility] - Draw no more than 60 minutes before the 1200 dose.2021-07-04 17:26:07* Test Item Value Reference Range Interpretation Comme nts VANCO TROUGH (test code = 5377621207) 9.1 ug/mL 10.0-20.0 L BRYSON (test code = BRYSON) Toxic Range: ?>20 ug/mL 15-20 ug/mL is recommended for severe infection or when Vancomycin ELISE is greater than or equal to 2. Lab Interpretation (test code = 13223-6) [facility] - Draw no more than 60 minutes before the 1200 dose.2021-07-04 17:26:07* Test Item Value Reference Range Interpretation Comme nts VANCO TROUGH (test code = 9900329647) 9.1 ug/mL 10.0-20.0 L BRYSON (test code = BRYSON) Toxic Range: ?>20 ug/mL 15-20 ug/mL is recommended for severe infection or when Vancomycin ELISE is greater than or equal to 2. Lab Interpretation (test code = 02164-0) [facility] - Draw no more than 60 minutes before the 1200 dose.2021-07-04 17:26:07* Test Item Value Reference Range Interpretation Comme nts VANCO TROUGH (test code = 4030293732) 9.1 ug/mL 10.0-20.0 L BRYSON (test code = BRYSON) Toxic Range: ?>20 ug/mL 15-20 ug/mL is recommended for severe infection or when Vancomycin ELISE is greater than or equal to 2. Lab Interpretation (test code = 20758-2) [facility] [id number] 15:31:30* Test Item Value Reference Range Interpretation Comme nts CRP (test code = 9209304353) 12.0 mg/dL <0.8 H Lab Interpretation (test cod e = 57390-3) Abnormal [facility]-REACTIVE [id number] 15:31:30* Test Item Value Reference Range Interpretation Comme nts CRP (test code = 8598233614) 12.0 mg/dL <0.8 H Lab Interpretation (test cod e = 19406-9) Abnormal [facility]-REACTIVE [id number] 15:31:30* Test Item Value Reference Range Interpretation Comme nts CRP (test code = 4264443959) 12.0 mg/dL <0.8 H Lab Interpretation (test cod e = 39506-0) [facility]2021-07-04 14:30:27* Test Item Value Reference Range Interpretation Comme nts POCT GLU (test code = 1126579288) 190 mg/dL 70-110 H Lab Interpretation (test cod e = 74815-2) Abnormal [facility] GLUCOSE (AUTOMATED)2021-07-04 14:30:27* Test Item Value Reference Range Interpretation Comme nts POCT GLU (test code = 3686649073) 190 mg/dL 70-110 H Lab Interpretation (test cod e = 51069-9) Abnormal [facility] GLUCOSE (AUTOMATED)2021-07-04 14:30:27* Test Item Value Reference Range Interpretation Comme nts POCT GLU (test code = 5153161540) 190 mg/dL 70-110 H Lab Interpretation (test cod e = 93606-2) [facility], [id number] 14:26:51* Test Item Value Reference Range Interpretation Comme nts VIT D 25OH (test code = 62928-8) 13 ng/mL 25-80 L BRYSON (test code = BRYSON) Deficiency: <20 ng/mLInsufficiency: 20-24 ng/mLOptimal: 25-80 ng/mL Lab Interpretation (test code = 57624-5) [facility], [id number] 14:26:51* Test Item Value Reference Range Interpretation Comme nts VIT D 25OH (test code = 97881-2) 13 ng/mL 25-80 L BRYSON (test code = BRYSON) Deficiency: <20 ng/mLInsufficiency: 20-24 ng/mLOptimal: 25-80 ng/mL Lab Interpretation (test code = 94349-1) [facility], [id number] 14:26:51* Test Item Value Reference Range Interpretation Comme nts VIT D 25OH (test code = 53605-7) 13 ng/mL 25-80 L BRYSON (test code = BRYSON) Deficiency: <20 ng/mLInsufficiency: 20-24 ng/mLOptimal: 25-80 ng/mL Lab Interpretation (test code = 37042-5) [facility] WITH [id number] 13:47:46* Test Item Value Reference Range Interpretation Comme nts WBC (test code = 6690-2) See_Comment H [Automated messa ge] The system which generated this result transmitted reference range: 4.20 - 10.70 10*3/?L. The reference range was not used to interpret this result as normal/abnormal. RBC (test code = 789-8) See_Comment L [Automated PIERIS [employer] ge] The system which generated this result [...] 34.0 g/dL 31.2-35.0 RDW-SD (test code = 22938-9) 42.5 fL 38.5-51.6 RDW-CV (test code = 788-0) 12.4 % 12.1-15.4 PLT (test code = 777-3) See_Comment [Automated PIERIS [employer] ge] The system which generated this result transmitted reference range: 150 - 328 10*3/?L. The reference range was not used to interpret this result as normal/abnormal. MPV (test code = 83675-7) 13.5 fL 9.8-13.0 H IPF % (test code = 4587498049) 9.6 % 1.2-10.7 Platelet count measured by fluorescence method. NRBC/100 WBC (test code = 6318144747) See_Comment [Automated [employer] ssage] The system which generated this result transmitted reference range: 0.0 - 10.0 /100 WBCs. The reference range was not used to interpret this result as normal/abnormal. NRBC x10^3 (test code = 8601338386) <0.01 See_Comment [Automated [employer]] The system which generated this result transmitted reference range: 10*3/?L. The reference range was not used to interpret this result as normal/abnormal. GRAN MAT (NEUT) % (test code = 770-8) 71.3 % IMM GRAN % (test code = 5567083704) 0.60 % LYMPH % (test code = 736-9) 15.8 % MONO % (test code = 5905-5) 11.2 % EOS % (test code = 713-8) 0.8 % BASO % (test code = 706-2) 0.3 % GRAN MAT x10^3(ANC) (test code = 3250979204) 8.92 10*3/uL 1.99-6.95 H IMM GRAN x10^3 (test code = 9775866591) 0.07 10*3/uL 0.00-0.06 H LYMPH x10^3 (test code = 731-0) 1.97 10*3/uL 1.09-3.23 MONO x10^3 (test code = 742-7) 1.40 10*3/uL 0.36-1.02 H EOS x10^3 (test code = 711-2) 0.10 10*3/uL 0.06-0.53 BASO x10^3 (test code = 704-7) 0.04 10*3/uL 0.01-0.09 Lab Interpretation (test code = 14429-1) Abnormal [facility] WITH [id number] 13:47:46* Test Item Value Reference Range Interpretation [...] 34.0 g/dL 31.2-35.0 RDW-SD (test code = 14388-6) 42.5 fL 38.5-51.6 RDW-CV (test code = 788-0) 12.4 % 12.1-15.4 PLT (test code = 777-3) See_Comment [Automated PIERIS Proteolaba ge] The system which generated this result transmitted reference range: 150 - 328 10*3/?L. The reference range was not used to interpret this result as normal/abnormal. MPV (test code = 87345-7) 13.5 fL 9.8-13.0 H IPF % (test code = 9298075611) 9.6 % 1.2-10.7 Platelet count measured by fluorescence method. NRBC/100 WBC (test code = 8152312198) See_Comment [Automated [employer] ssage] The system which generated this result transmitted reference range: 0.0 - 10.0 /100 WBCs. The reference range was not used to interpret this result as normal/abnormal. NRBC x10^3 (test code = 1018155404) <0.01 See_Comment [Automated PIERIS Prote[employer] ge] The system which generated this result transmitted reference range: 10*3/?L. The reference range was not used to interpret this result as normal/abnormal. GRAN MAT (NEUT) % (test code = 770-8) 71.3 % IMM GRAN % (test code = 9959955560) 0.60 % LYMPH % (test code = 736-9) 15.8 % MONO % (test code = 5905-5) 11.2 % EOS % (test code = 713-8) 0.8 % BASO % (test code = 706-2) 0.3 % GRAN MAT x10^3(ANC) (test code = 1419099015) 8.92 10*3/uL 1.99-6.95 H IMM GRAN x10^3 (test code = 6611111472) 0.07 10*3/uL 0.00-0.06 H LYMPH x10^3 (test code = 731-0) 1.97 10*3/uL 1.09-3.23 MONO x10^3 (test code = 742-7) 1.40 10*3/uL 0.36-1.02 H EOS x10^3 (test code = 711-2) 0.10 10*3/uL 0.06-0.53 BASO x10^3 (test code = 704-7) 0.04 10*3/uL 0.01-0.09 Lab Interpretation (test code = 74871-5) Abnormal [facility] WITH [id number] 13:47:46* Test Item Value Reference Range Interpretation Comme nts WBC (test code = 6690-2) See_Comment H [Automated PIERIS Proteol[employer] ge] The system which generated this result transmitted reference range: 4.20 - 10.70 10*3/?L. The reference range was not used to interpret this result as normal/abnormal. RBC (test code = 789-8) See_Comment L [Automated PIERIS [employer] ge] The system which generated this result [...] 34.0 g/dL 31.2-35.0 RDW-SD (test code = 05897-8) 42.5 fL 38.5-51.6 RDW-CV (test code = 788-0) 12.4 % 12.1-15.4 PLT (test code = 777-3) See_Comment [Automated PIERIS Proteol[employer] ge] The system which generated this result transmitted reference range: 150 - 328 10*3/?L. The reference range was not used to interpret this result as normal/abnormal. MPV (test code = 64952-4) 13.5 fL 9.8-13.0 H IPF % (test code = 0082080947) 9.6 % 1.2-10.7 Platelet count measured by fluorescence method. NRBC/100 WBC (test code = 6830397170) See_Comment [Automated me ssage] The system which generated this result transmitted reference range: 0.0 - 10.0 /100 WBCs. The reference range was not used to interpret this result as normal/abnormal. NRBC x10^3 (test code = 1902759847) <0.01 See_Comment [Automated messa ge] The system which generated this result transmitted reference range: 10*3/?L. The reference range was not used to interpret this result as normal/abnormal. GRAN MAT (NEUT) % (test code = 770-8) 71.3 % IMM GRAN % (test code = 8380198195) 0.60 % LYMPH % (test code = 736-9) 15.8 % MONO % (test code = 5905-5) 11.2 % EOS % (test code = 713-8) 0.8 % BASO % (test code = 706-2) 0.3 % GRAN MAT x10^3(ANC) (test code = 8407941673) 8.92 10*3/uL 1.99-6.95 H IMM GRAN x10^3 (test code = 4461396853) 0.07 10*3/uL 0.00-0.06 H LYMPH x10^3 (test code = 731-0) 1.97 10*3/uL 1.09-3.23 MONO x10^3 (test code = 742-7) 1.40 10*3/uL 0.36-1.02 H EOS x10^3 (test code = 711-2) 0.10 10*3/uL 0.06-0.53 BASO x10^3 (test code = 704-7) 0.04 10*3/uL 0.01-0.09 Lab Interpretation (test code = 08048-4) [id number] 13:33:20* Test Item Value Reference Range Interpretation Comme nts NT-proBNP (test code = 6387477761) 291 pg/mL See_Comment H [Automated message] The system which generated this result transmitted reference range: <=125. The reference range was not used to interpret this result as normal/abnormal. BRYSON (test code = BRYSON) Biotin has been reported to cause a negative bias, interpret results relative to patient's use of biotin. Lab Interpretation (test code = 67718-8) [facility] [id number] 13:33:20* Test Item Value Reference Range Interpretation Comme nts NT-proBNP (test code = 5287049367) 291 pg/mL See_Comment H [Automated message] The system which generated this result transmitted reference range: <=125. The reference range was not used to interpret this result as normal/abnormal. BRYSON (test code = BRYSON) Biotin has been reported to cause a negative bias, interpret results relative to patient's use of biotin. Lab Interpretation (test code = 93255-0) [facility] [id number] 13:33:20* Test Item Value Reference Range Interpretation Comme nts NT-proBNP (test code = 1908800699) 291 pg/mL See_Comment H [Automated message] The system which generated this result transmitted reference range: <=125. The reference range was not used to interpret this result as normal/abnormal. BRYSON (test code = BRYSON) Biotin has been reported to cause a negative bias, interpret results relative to patient's use of biotin. Lab Interpretation (test code = 12857-7) [facility] 13:18:00* Test Item Value Reference Range Interpretation Comme nts MAGNESIUM (test code = 9478539205) 2.1 mg/dL 1.7-2.4 Lab Interpretation (test cod e = 87774-2) [facility]:18:[facility]* Test Item Value Reference Range Interpretation Comme nts MAGNESIUM (test code = 8663847711) 2.1 mg/dL 1.7-2.4 Lab Interpretation (test cod e = 16339-5) [facility] 13:18:00* Test Item Value Reference Range Interpretation Comme nts MAGNESIUM (test code = 9293152220) 2.1 mg/dL 1.7-2.4 Lab Interpretation (test cod e = 33788-3) [facility]OLIC PAN[facility] (96351)2021-07-04 13:17:39* Test Item Value Reference Range Interpretation Comme nts NA (test code = 9435613848) 135 mmol/L 135-145 K (test code = 1038879991) 3.8 mmol/L 3.5-5.0 CL (test code = 2590658991) 106 mmol/L 98-108 CO2 TOTAL (test code = 6241749785) 22 mmol/L 23-31 L AGAP (test code = 0104808091) 2-16 BUN (test code = 2661287051) 14 mg/dL 7-23 GLUCOSE (test code = 9903807923) 151 mg/dL 70-110 H CREATININE (test code = 9599328564) 0.78 mg/dL 0.60-1.25 TOTAL BILI (test code = 5656527706) 0.5 mg/dL 0.1-1.1 CALCIUM (test code = 9414751131) 8.1 mg/dL 8.6-10.6 L T PROTEIN (test code = 8959998673) 5.6 g/dL 6.3-8.2 L ALBUMIN (test code = 7938949766) 2.7 g/dL 3.5-5.0 L ALK PHOS (test code = 9207882288) 75 U/L 34-122 ALTv (test code = 1742-6) 13 U/L 5-50 AST(SGOT) (test code = 9949234267) 20 U/L 13-40 eGFR (test code = 5351699175) mL/min/1.73m2 BRYSON (test code = BRYSON) Association [...] imaging tests). Lab Interpretation (test code = 23964-0) Abnormal [facility]. METABOLIC PANEL (82975)2021-07-04 13:17:39* Test Item Value Reference Range Interpretation Comme nts NA (test code = 4137121704) 135 mmol/L 135-145 K (test code = 3151917964) 3.8 mmol/L 3.5-5.0 CL (test code = 2764890095) 106 mmol/L 98-108 CO2 TOTAL (test code = 0463301954) 22 mmol/L 23-31 L AGAP (test code = 3029287789) 2-16 BUN (test code = 4688429669) 14 mg/dL 7-23 GLUCOSE (test code = 7959761653) 151 mg/dL 70-110 H CREATININE (test code = 0252496820) 0.78 mg/dL 0.60-1.25 TOTAL BILI (test code = 7233181667) 0.5 mg/dL 0.1-1.1 CALCIUM (test code = 3070165256) 8.1 mg/dL 8.6-10.6 L T PROTEIN (test code = 3517349683) 5.6 g/dL 6.3-8.2 L ALBUMIN (test code = 8780387914) 2.7 g/dL 3.5-5.0 L ALK PHOS (test code = 6055984511) 75 U/L 34-122 ALTv (test code = 1742-6) 13 U/L 5-50 AST(SGOT) (test code = 9525634417) 20 U/L 13-40 eGFR (test code = 5466743393) mL/min/1.73m2 BRYSON (test code = BRYSON) Association [...] imaging tests). Lab Interpretation (test code = 94357-8) Abnormal [facility]. METABOLIC PANEL (81934)2021-07-04 13:17:39* Test Item Value Reference Range Interpretation Comme nts NA (test code = 8933147894) 135 mmol/L 135-145 K (test code = 9896819225) 3.8 mmol/L 3.5-5.0 CL (test code = 3099043978) 106 mmol/L 98-108 CO2 TOTAL (test code = 1397785573) 22 mmol/L 23-31 L AGAP (test code = 6271652348) 2-16 BUN (test code = 5705427226) 14 mg/dL 7-23 GLUCOSE (test code = 2600814659) 151 mg/dL 70-110 H CREATININE (test code = 6104909790) 0.78 mg/dL 0.60-1.25 TOTAL BILI (test code = 0037152484) 0.5 mg/dL 0.1-1.1 CALCIUM (test code = 5997726858) 8.1 mg/dL 8.6-10.6 L T PROTEIN (test code = 2948089207) 5.6 g/dL 6.3-8.2 L ALBUMIN (test code = 6328190677) 2.7 g/dL 3.5-5.0 L ALK PHOS (test code = 2630225349) 75 U/L 34-122 ALTv (test code = 1742-6) 13 U/L 5-50 AST(SGOT) (test code = 0660955475) 20 U/L 13-40 eGFR (test code = 1134916613) mL/min/1.73m2 BRYSON (test code = BRYSON) Association [...] imaging tests). Lab Interpretation (test code = 13394-6) [facility] 13:17:19* Test Item Value Reference Range Interpretation Comme nts PHOSPHORUS (test code = 4316698266) 3.4 mg/dL 2.5-5.0 Lab Interpretation (test cod e = 81924-0) [facility]2021[facility]-27 13:17:19* Test Item Value Reference Range Interpretation Comme nts PHOSPHORUS (test code = 3617158624) 3.4 mg/dL 2.5-5.0 Lab Interpretation (test cod e = 24310-8) [facility]2021[facility]27 13:17:19* Test Item Value Reference Range Interpretation Comme nts PHOSPHORUS (test code = 4882499266) 3.4 mg/dL 2.5-5.0 Lab Interpretation (test cod e = 64543-4) Normal [facility] GLUCOSE (AUTOMATED)2021-07-04 12:05:44* Test Item Value Reference Range Interpretation Comme nts POCT GLU (test code = 3677721090) 211 mg/dL 70-110 H Lab Interpretation (test cod e = 15513-5) Abnormal [facility] GLUCOSE (AUTOMATED)2021-07-04 12:05:44* Test Item Value Reference Range Interpretation Comme nts POCT GLU (test code = 3462102286) 211 mg/dL 70-110 H Lab Interpretation (test cod e = 07543-9) Abnormal [facility] GLUCOSE (AUTOMATED)2021-07-04 12:05:44* Test Item Value Reference Range Interpretation Comme nts POCT GLU (test code = 2327591430) 211 mg/dL 70-110 H Lab Interpretation (test cod e = 05567-5) Abnormal [facility] GLUCOSE (AUTOMATED)2021-07-04 12:05:22* Test Item Value Reference Range Interpretation Comme nts POCT GLU (test code = 2559790290) 124 mg/dL 70-110 H Lab Interpretation (test cod e = 76737-2) Abnormal [facility] GLUCOSE (AUTOMATED)2021-07-04 12:05:22* Test Item Value Reference Range Interpretation Comme nts POCT GLU (test code = 8590077052) 124 mg/dL 70-110 H Lab Interpretation (test cod e = 28244-5) Abnormal [facility] GLUCOSE (AUTOMATED)2021-07-04 12:05:22* Test Item Value Reference Range Interpretation Comme nts POCT GLU (test code = 1326057099) 124 mg/dL 70-110 H Lab Interpretation (test cod e = 60311-7) [facility] 12:04:47* Test Item Value Reference Range Interpretation Comme nts POCT GLU (test code = 3865350328) 194 mg/dL 70-110 H Lab Interpretation (test cod e = 04047-1) [facility] 12:04:47* Test Item Value Reference Range Interpretation Comme nts POCT GLU (test code = 3771125687) 194 mg/dL 70-110 H Lab Interpretation (test cod e = 51880-1) Abnormal [facility] GLUCOSE (AUTOMATED)2021-07-04 12:04:47* Test Item Value Reference Range Interpretation Comme nts POCT GLU (test code = 1766204281) 194 mg/dL 70-110 H Lab Interpretation (test cod e = 88043-3) [facility] 12:04:19* Test Item Value Reference Range Interpretation Comme nts POCT GLU (test code = 9546628129) 271 mg/dL 70-110 H Lab Interpretation (test cod e = 29226-6) Abnormal [facility] GLUCOSE (AUTOMATED)2021-07-04 12:04:19* Test Item Value Reference Range Interpretation Comme nts POCT GLU (test code = 8351796840) 271 mg/dL 70-110 H Lab Interpretation (test cod e = 71083-8) Abnormal [facility] GLUCOSE (AUTOMATED)2021-07-04 12:04:19* Test Item Value Reference Range Interpretation Comme nts POCT GLU (test code = 2997739325) 271 mg/dL 70-110 H Lab Interpretation (test cod e = 29722-3) [facility] B12, [id number] 20:51:33* Test Item Value Reference Range Interpretation Comme nts VIT B12 (test code = 7693271254) 768 pg/mL 240-930 BRYSON (test code = BRYSON) Biotin has been reported to cause a positive bias, interpret results relative to patient's use of biotin. Lab Interpretation (test code = 46496-4) [facility] B12, [id number] 20:51:33* Test Item Value Reference Range Interpretation Comme nts VIT B12 (test code = 6273726285) 768 pg/mL 240-930 BRYSON (test code = BRYSON) Biotin has been reported to cause a positive bias, interpret results relative to patient's use of biotin. Lab Interpretation (test code = 86791-2) [facility] B12, [id number] 20:51:33* Test Item Value Reference Range Interpretation Comme nts VIT B12 (test code = 2647681728) 768 pg/mL 240-930 BRYSON (test code = BRYSON) Biotin has been reported to cause a positive bias, interpret results relative to patient's use of biotin. Lab Interpretation (test code = 93579-6) [facility]:29* Test Item Value Reference Range Interpretation Comme nts Procalcitonin (test code = 6603488532) 0.09 ng/mL <0.07 H BRYSON (test code [...] lung abscess/empyema. For further information please refer to:[email or web address] Lab Interpretation (test code = 88629-5) [facility]AL[facility]IN2021-[facility]-26 20:34:29* Test Item Value Reference Range Interpretation Comme nts Procalcitonin (test code = 3488174427) 0.09 ng/mL <0.07 H BRYSON (test code [...] lung abscess/empyema. For further information please refer to:[email or web address] Lab Interpretation (test code = 88451-2) [facility]normal [facility]PROCAL[facility]ONIN2021-09-26 20:34:29* Test Item Value Reference Range Interpretation Comme nts Procalcitonin (test code = 6267181342) 0.09 ng/mL <0.07 H BRYSON (test code [...] lung abscess/empyema. For further information please refer to:[email or web address] Lab Interpretation (test code = 99736-3) Abnormal [facility] [id number] 17:16:42* Test Item Value Reference Range Interpretation Comme nts IRON (test code = 9654008831) 31 ug/dL 50-160 L TIBC (test code = 7123835853) 211 ug/dL 250-410 L % FE SAT (test code = 8418941933) 15 % 20-50 L Lab Interpretation (test cod e = 54667-1) Abnormal [facility] [id number] 17:16:42* Test Item Value Reference Range Interpretation Comme nts IRON (test code = 8762055925) 31 ug/dL 50-160 L TIBC (test code = 1454556016) 211 ug/dL 250-410 L % FE SAT (test code = 7045447079) 15 % 20-50 L Lab Interpretation (test cod e = 92534-2) Abnormal [facility] [id number] 17:16:42* Test Item Value Reference Range Interpretation Comme nts IRON (test code = 4811554161) 31 ug/dL 50-160 L TIBC (test code = 5593060367) 211 ug/dL 250-410 L % FE SAT (test code = 5416714180) 15 % 20-50 L Lab Interpretation (test cod e = 36433-5) [facility]normal [facility] HospitalPROTHROMBIN TIME / [id number] 15:25:33* Test Item Value Reference Range Interpretation Comme [facility] PROTIME PATIENT (test code = 5964-2) See_Comment [Automated PIERIS [employer] Kwanji] The system which generated this result transmitted reference range: 12.0 - 14.7 Seconds. The reference range was not used to interpret this result as normal/abnormal. INR (test code = 6301-6) Normal INR <1.1; Warfarin Therapeutic range 2.0 to 3.0 or 2.5 to 3.5, depending upon the indications. Lab Interpretation (test code = 06682-1) Normal [facility] HospitalPROTHROMBIN TIME / [id number] 15:25:33* Test Item Value Reference Range Interpretation Comme [facility] PROTIME PATIENT (test code = 5964-2) See_Comment [Automated PIERIS [employer]ol[employer] Kwanji] The system which generated this result transmitted reference range: 12.0 - 14.7 Seconds. The reference range was not used to interpret this result as normal/abnormal. INR (test code = 6301-6) Normal INR <1.1; Warfarin Therapeutic range 2.0 to 3.0 or 2.5 to 3.5, depending upon the indications. Lab Interpretation (test code = 20476-9) Normal [facility] HospitalPROTHROMBIN TIME / [id number] 15:25:33* Test Item Value Reference Range Interpretation Comme [facility] PROTIME PATIENT (test code = 5964-2) See_Comment [Automated PIERIS [employer] Kwanji] The system which generated this result transmitted reference range: 12.0 - 14.7 Seconds. The reference range was not used to interpret this result as normal/abnormal. INR (test code = 6301-6) Normal INR <1.1; Warfarin Therapeutic range 2.0 to 3.0 or 2.5 to 3.5, depending upon the indications. Lab Interpretation (test code = 11436-6) [facility] HospitalSEDIMENTATION [id number] 10:28:31* Test Item Value Reference Range Interpretation Comme nts ESR (test code = 7881920618) See_Comment H [Automated messa ge] The system which generated this result transmitted reference range: 0 - 10 mm/HR. The reference range was not used to interpret this result as normal/abnormal. Lab Interpretation (test code = 42664-4) Abnormal [facility] [id number] 10:28:31* Test Item Value Reference Range Interpretation Comme nts ESR (test code = 0450307037) See_Comment H [Automated messa ge] The system which generated this result transmitted reference range: 0 - 10 mm/HR. The reference range was not used to interpret this result as normal/abnormal. Lab Interpretation (test code = 48744-2) Abnormal [facility] [id number] 10:28:31* Test Item Value Reference Range Interpretation Comme nts ESR (test code = 3632958278) See_Comment H [Automated messa ge] The system which generated this result transmitted reference range: 0 - 10 mm/HR. The reference range was not used to interpret this result as normal/abnormal. Lab Interpretation (test code = 27866-9) Abnormal [facility] [id number] 09:49:36* Test Item Value Reference Range Interpretation Comme nts FERRITIN (test code = 7615471114) 119.0 ng/mL 18.0-464.0 BRYSON (test code = BRYSON) Biotin has been reported to cause a negative bias, interpret results relative to patient's use of biotin. Lab Interpretation (test code = 86035-7) Normal [facility] [id number] 09:49:36* Test Item Value Reference Range Interpretation Comme nts FERRITIN (test code = 8877348599) 119.0 ng/mL 18.0-464.0 BRYSON (test code = BRYSON) Biotin has been reported to cause a negative bias, interpret results relative to patient's use of biotin. Lab Interpretation (test code = 84349-8) Normal [facility] [id number] 09:49:36* Test Item Value Reference Range Interpretation Comme nts FERRITIN (test code = 9049211650) 119.0 ng/mL 18.0-464.0 BRYSON (test code = BRYSON) Biotin has been reported to cause a negative bias, interpret results relative to patient's use of biotin. Lab Interpretation (test code = 18927-4) Normal [facility] HospitalTHY[facility]ID STIMULATING [id number] 09:45:35 * Test Item Value Reference Range Interpretation Comme nts TSH (test code = 3115443493) See_Comment [Automated messa ge] The system which generated this result transmitted reference range: 0.45 - 4.70 mIU/L. The reference range was not used to interpret this result as normal/abnormal. Lab Interpretation (test code = 60878-3) Normal [facility] HospitalTH[facility] STIMUL[facility] [id number] 09:45:35 * Test Item Value Reference Range Interpretation Comme nts TSH (test code = 8715360436) See_Comment [Automated messa ge] The system which generated this result transmitted reference range: 0.45 - 4.70 mIU/L. The reference range was not used to interpret this result as normal/abnormal. Lab Interpretation (test code = 09226-7) Normal [facility] HospitalTH[facility] STIMULATING [id number] 09:45:35 * Test Item Value Reference Range Interpretation Comme nts TSH (test code = 9373308762) See_Comment [Automated messa ge] The system which generated this result transmitted reference range: 0.45 - 4.70 mIU/L. The reference range was not used to interpret this result as normal/abnormal. Lab Interpretation (test code = 53533-6) [facility] [id number] 09:24:29* Test Item Value Reference Range Interpretation Comme nts NT-proBNP (test code = 2852399701) 260 pg/mL See_Comment H [Automated message] The system which generated this result transmitted reference range: <=125. The reference range was not used to interpret this result as normal/abnormal. BRYSON (test code = BRYSON) Biotin has been reported to cause a negative bias, interpret results relative to patient's use of biotin. Lab Interpretation (test code = 54598-4) Abnormal [facility] [id number] 09:24:29* Test Item Value Reference Range Interpretation Comme nts NT-proBNP (test code = 4574257357) 260 pg/mL See_Comment H [Automated message] The system which generated this result transmitted reference range: <=125. The reference range was not used to interpret this result as normal/abnormal. BRYSON (test code = BRYSON) Biotin has been reported to cause a negative bias, interpret results relative to patient's use of biotin. Lab Interpretation (test code = 97484-3) [facility]normal [facility] [id number] 09:24:29* Test Item Value Reference Range Interpretation Comme nts NT-proBNP (test code = 0086396862) 260 pg/mL See_Comment H [Automated message] The system which generated this result transmitted reference range: <=125. The reference range was not used to interpret this result as normal/abnormal. BRYSON (test code = BRYSON) Biotin has been reported to cause a negative bias, interpret results relative to patient's use of biotin. Lab Interpretation (test code = 83811-9) [facility]MAG[facility]2021-09-26 09:14:31* Test Item Value Reference Range Interpretation Comme nts MAGNESIUM (test code = 7543776806) 1.6 mg/dL 1.7-2.4 L Lab Interpretation (test cod e = 23091-7) Abnormal [facility] HospitalLIPID PANEL (52419)(TOTAL CHOLESTEROL, TRIGLYCERIDES, HDL)2021-07-03 09:14:31* Test Item Value Reference Range Interpretation Comme nts CHOL (test code = 3567936429) 215 mg/dL 120-200 H HDL (test code = 7268045773) 41 mg/dL >40 HDLC RATIO (test code = 5459856879) See_Comment H [Automated PIERIS Proteolaba Kwanji] The system which generated this result transmitted reference range: <=5.0. The reference range was not used to interpret this result as normal/abnormal. TRIG (test code = 1261158901) 185 mg/dL 30-170 H LDL CHOL (test code = 78718-2) 137 mg/dL See_Comment [Automated PIERIS Proteolaba ge] The system which generated this result transmitted reference range: <=160. The reference range was not used to interpret this result as normal/abnormal. VLDL (test code = 1532833038) 37 mg/dL 5-60 Lab Interpretation (test code = 96606-4) Abnormal [facility]2021-09-26 09:14:31* Test Item Value Reference Range Interpretation Comme nts MAGNESIUM (test code = 3478392003) 1.6 mg/dL 1.7-2.4 L Lab Interpretation (test cod e = 25142-2) [facility]normal [facility] HospitalLIP[facility] PANEL (87873)(TOTAL CHOLESTEROL, TRIGLYCERIDES, HDL)2021-07-03 09:14:31* Test Item Value Reference Range Interpretation Comme nts CHOL (test code = 2677732678) 215 mg/dL 120-200 H HDL (test code = 2880171298) 41 mg/dL >40 HDLC RATIO (test code = 4503888082) See_Comment H [Automated messa ge] The system which generated this result transmitted reference range: <=5.0. The reference range was not used to interpret this result as normal/abnormal. TRIG (test code = 6157072675) 185 mg/dL 30-170 H LDL CHOL (test code = 84665-3) 137 mg/dL See_Comment [Automated messa ge] The system which generated this result transmitted reference range: <=160. The reference range was not used to interpret this result as normal/abnormal. VLDL (test code = 2980074961) 37 mg/dL 5-60 Lab Interpretation (test code = 74360-4) Abnormal [facility]2021-09-26 09:14:31* Test Item Value Reference Range Interpretation Comme nts MAGNESIUM (test code = 2014776234) 1.6 mg/dL 1.7-2.4 L Lab Interpretation (test cod e = 14843-6) [facility]TOTAL CHOLESTEROL, TRIGLYCERIDES, HDL)2021-07-03 09:14:31* Test Item Value Reference Range Interpretation Comme nts CHOL (test code = 7168509153) 215 mg/dL 120-200 H HDL (test code = 2944752673) 41 mg/dL >40 HDLC RATIO (test code = 1086591579) See_Comment H [Automated messa ge] The system which generated this result transmitted reference range: <=5.0. The reference range was not used to interpret this result as normal/abnormal. TRIG (test code = 4040527463) 185 mg/dL 30-170 H LDL CHOL (test code = 33926-0) 137 mg/dL See_Comment [Automated PIERIS [employer]] The system which generated this result transmitted reference range: <=160. The reference range was not used to interpret this result as normal/abnormal. VLDL (test code = 2063945978) 37 mg/dL 5-60 Lab Interpretation (test code = 31541-7) [facility] 09:14:11* Test Item Value Reference Range Interpretation Comme nts PHOSPHORUS (test code = 8197695372) 3.6 mg/dL 2.5-5.0 Lab Interpretation (test cod e = 96653-7) [facility] 09:14:11* Test Item Value Reference Range Interpretation Comme nts PHOSPHORUS (test code = 5671457894) 3.6 mg/dL 2.5-5.0 Lab Interpretation (test cod e = 51309-6) [facility] 09:14:11* Test Item Value Reference Range Interpretation Comme nts PHOSPHORUS (test code = 0665964779) 3.6 mg/dL 2.5-5.0 Lab Interpretation (test cod e = 15795-2) [facility] [id number] 09:13:51* Test Item Value Reference Range Interpretation Comme nts URIC ACID (test code = 4017032592) 4.4 mg/dL 3.6-8.0 Lab Interpretation (test cod e = 96322-7) [facility] [id number] 09:13:51* Test Item Value Reference Range Interpretation Comme nts URIC ACID (test code = 2585789436) 4.4 mg/dL 3.6-8.0 Lab Interpretation (test cod e = 99521-8) [facility] [id number] 09:13:51* Test Item Value Reference Range Interpretation Comme nts URIC ACID (test code = 9844764315) 4.4 mg/dL 3.6-8.0 Lab Interpretation (test cod e = 86240-8) [facility]CREAT[facility] [id number] 09:13:50* Test Item Value Reference Range Interpretation Comme nts CK (test code = 9897011803) 122 U/L 33-194 Lab Interpretation (test cod e = 91382-9) [facility]CREAT[facility] [id number] 09:13:50* Test Item Value Reference Range Interpretation Comme nts CK (test code = 2057331935) 122 U/L 33-194 Lab Interpretation (test cod e = 87250-3) Normal [facility] [id number] 09:13:50* Test Item Value Reference Range Interpretation Comme nts CK (test code = 1350817376) 122 U/L 33-194 Lab Interpretation (test cod e = 38956-1) Normal [facility] HospitalGLYCOSYLATED HEMOGLOBIN (A1C)2021-07-03 08:59:52* Test Item Value Reference Range Interpretation Comme nts HGB A1C (test code = 4548-4) 12.9 % 4.0-5.7 H BRYSON (test code = BRYSON) Reference RangesNormal: <5.7%Prediabetes: 5.7 - 6.4%Diabetes: > 6.5% Lab Interpretation (test code = 28746-4) Abnormal [facility]OSYLATED [facility]GLOBIN (A1C)2021-07-03 08:59:52* Test Item Value Reference Range Interpretation Comme nts HGB A1C (test code = 4548-4) 12.9 % 4.0-5.7 H BRYSON (test code = BRYSON) Reference RangesNormal: <5.7%Prediabetes: 5.7 - 6.4%Diabetes: > 6.5% Lab Interpretation (test code = 53543-2) Abnormal [facility]GLOBIN (A1C)2021-07-03 08:59:52* Test Item Value Reference Range Interpretation Comme nts HGB A1C (test code = 4548-4) 12.9 % 4.0-5.7 H BRYSON (test code = BRYSON) Reference RangesNormal: <5.7%Prediabetes: 5.7 - 6.4%Diabetes: > 6.5% Lab Interpretation (test code = 41733-5) Abnormal [facility] HospitalTroponin [id number] 06:38:04* Test Item Value Reference Range Interpretation Comments TROPONIN I (test code = 4440877633) 0.014 ng/mL See_Comment [Automated message] The system [...] of biotin. Lab Interpretation (test code = 35333-2) Normal [facility] [id number] 06:38:04* Test Item Value Reference Range Interpretation Comments TROPONIN I (test code = 6780875959) 0.014 ng/mL See_Comment [Automated message] The system [...] of biotin. Lab Interpretation (test code = 79930-5) Normal [facility] [id number] 06:38:04* Test Item Value Reference Range Interpretation Comments TROPONIN I (test code = 9747931040) 0.014 ng/mL See_Comment [Automated message] The system [...] of biotin. Lab Interpretation (test code = 58541-4) Normal [facility].. Metabolic Panel (99425)2021-07-03 06:26:45* Test Item Value Reference Range Interpretation Comme nts NA (test code = 7023683162) 131 mmol/L 135-145 L K (test code = 6909123302) 4.1 mmol/L 3.5-5.0 CL (test code = 1150197269) 101 mmol/L 98-108 CO2 TOTAL (test code = 6468560048) 23 mmol/L 23-31 AGAP (test code = 2891789150) 2-16 BUN (test code = 0351552935) 20 mg/dL 7-23 GLUCOSE (test code = 2319833758) 403 mg/dL 70-110 H CREATININE (test code = 7704843153) 1.06 mg/dL 0.60-1.25 TOTAL BILI (test code = 6712008000) 0.4 mg/dL 0.1-1.1 CALCIUM (test code = 0906158645) 9.3 mg/dL 8.6-10.6 T PROTEIN (test code = 9432335878) 7.5 g/dL 6.3-8.2 ALBUMIN (test code = 0199215732) 3.9 g/dL 3.5-5.0 ALK PHOS (test code = 8691798681) 122 U/L 34-122 ALTv (test code = 1742-6) 16 U/L 5-50 AST(SGOT) (test code = 0298707582) 18 U/L 13-40 eGFR (test code = 5029143466) mL/min/1.73m2 BRYSON (test code = BRYSON) Association [...] imaging tests). Lab Interpretation (test code = 09535-1) Abnormal [facility].. Metabolic Panel (52455)2021-07-03 06:26:45* Test Item Value Reference Range Interpretation Comme nts NA (test code = 8471167256) 131 mmol/L 135-145 L K (test code = 5470530643) 4.1 mmol/L 3.5-5.0 CL (test code = 2600622201) 101 mmol/L 98-108 CO2 TOTAL (test code = 6474930250) 23 mmol/L 23-31 AGAP (test code = 4462025537) 2-16 BUN (test code = 5918570633) 20 mg/dL 7-23 GLUCOSE (test code = 1978010184) 403 mg/dL 70-110 H CREATININE (test code = 9607778155) 1.06 mg/dL 0.60-1.25 TOTAL BILI (test code = 8386427123) 0.4 mg/dL 0.1-1.1 CALCIUM (test code = 8746583926) 9.3 mg/dL 8.6-10.6 T PROTEIN (test code = 6086951948) 7.5 g/dL 6.3-8.2 ALBUMIN (test code = 6319277688) 3.9 g/dL 3.5-5.0 ALK PHOS (test code = 2459453166) 122 U/L 34-122 ALTv (test code = 1742-6) 16 U/L 5-50 AST(SGOT) (test code = 8024703704) 18 U/L 13-40 eGFR (test code = 1361490661) mL/min/1.73m2 BRYSON (test code = BRYSON) Association [...] imaging tests). Lab Interpretation (test code = 18420-5) [facility] Metabolic Panel (50486)2021-07-03 06:26:45* Test Item Value Reference Range Interpretation Comme nts NA (test code = 0015201382) 131 mmol/L 135-145 L K (test code = 1924126434) 4.1 mmol/L 3.5-5.0 CL (test code = 1932925349) 101 mmol/L 98-108 CO2 TOTAL (test code = 6910974966) 23 mmol/L 23-31 AGAP (test code = 8616282755) 2-16 BUN (test code = 0800779955) 20 mg/dL 7-23 GLUCOSE (test code = 2085966850) 403 mg/dL 70-110 H CREATININE (test code = 0805130240) 1.06 mg/dL 0.60-1.25 TOTAL BILI (test code = 0423234005) 0.4 mg/dL 0.1-1.1 CALCIUM (test code = 8493723201) 9.3 mg/dL 8.6-10.6 T PROTEIN (test code = 0132655626) 7.5 g/dL 6.3-8.2 ALBUMIN (test code = 9691274005) 3.9 g/dL 3.5-5.0 ALK PHOS (test code = 0887013179) 122 U/L 34-122 ALTv (test code = 1742-6) 16 U/L 5-50 AST(SGOT) (test code = 1356288887) 18 U/L 13-40 eGFR (test code = 3744697091) mL/min/1.73m2 BRYSON (test code = BRYSON) Association [...] imaging tests). Lab Interpretation (test code = 96231-8) Abnormal [facility] With [id number] 06:17:42* Test Item Value Reference Range Interpretation Comme nts WBC (test code = 6690-2) See_Comment H [Automated [employer]] The system which generated this result transmitted reference range: 4.20 - 10.70 10*3/?L. The reference range was not used to interpret this result as normal/abnormal. RBC (test code = 789-8) See_Comment L [Automated [employer]] The system which generated this result transmitted [...] 34.7 g/dL 31.2-35.0 RDW-SD (test code = 45495-6) 40.6 fL 38.5-51.6 RDW-CV (test code = 788-0) 12.2 % 12.1-15.4 PLT (test code = 777-3) See_Comment [Automated messa ge] The system which generated this result transmitted reference range: 150 - 328 10*3/?L. The reference range was not used to interpret this result as normal/abnormal. MPV (test code = 14092-1) 13.0 fL 9.8-13.0 NRBC/100 WBC (test code = 9928280660) See_Comment [Automated me ssage] The system which generated this result transmitted reference range: 0.0 - 10.0 /100 WBCs. The reference range was not used to interpret this result as normal/abnormal. NRBC x10^3 (test code = 8017398599) <0.01 See_Comment [Automated messa ge] The system which generated this result transmitted reference range: 10*3/?L. The reference range was not used to interpret this result as normal/abnormal. GRAN MAT (NEUT) % (test code = 770-8) 77.9 % IMM GRAN % (test code = 0386707361) 0.50 % LYMPH % (test code = 736-9) 11.6 % MONO % (test code = 5905-5) 9.2 % EOS % (test code = 713-8) 0.5 % BASO % (test code = 706-2) 0.3 % GRAN MAT x10^3(ANC) (test code = 5321535505) 9.93 10*3/uL 1.99-6.95 H IMM GRAN x10^3 (test code = 8355428355) 0.07 10*3/uL 0.00-0.06 H LYMPH x10^3 (test code = 731-0) 1.48 10*3/uL 1.09-3.23 MONO x10^3 (test code = 742-7) 1.18 10*3/uL 0.36-1.02 H EOS x10^3 (test code = 711-2) 0.06 10*3/uL 0.06-0.53 BASO x10^3 (test code = 704-7) 0.04 10*3/uL 0.01-0.09 Lab Interpretation (test code = 10374-9) Abnormal [facility] With [id number] 06:17:42* Test Item Value Reference Range Interpretation [...] 34.7 g/dL 31.2-35.0 RDW-SD (test code = 68040-7) 40.6 fL 38.5-51.6 RDW-CV (test code = 788-0) 12.2 % 12.1-15.4 PLT (test code = 777-3) See_Comment [Automated messa ge] The system which generated this result transmitted reference range: 150 - 328 10*3/?L. The reference range was not used to interpret this result as normal/abnormal. MPV (test code = 59328-5) 13.0 fL 9.8-13.0 NRBC/100 WBC (test code = 6025092795) See_Comment [Automated [employer] ssage] The system which generated this result transmitted reference range: 0.0 - 10.0 /100 WBCs. The reference range was not used to interpret this result as normal/abnormal. NRBC x10^3 (test code = 4893849101) <0.01 See_Comment [Automated messa ge] The system which generated this result transmitted reference range: 10*3/?L. The reference range was not used to interpret this result as normal/abnormal. GRAN MAT (NEUT) % (test code = 770-8) 77.9 % IMM GRAN % (test code = 2725356634) 0.50 % LYMPH % (test code = 736-9) 11.6 % MONO % (test code = 5905-5) 9.2 % EOS % (test code = 713-8) 0.5 % BASO % (test code = 706-2) 0.3 % GRAN MAT x10^3(ANC) (test code = 8184487879) 9.93 10*3/uL 1.99-6.95 H IMM GRAN x10^3 (test code = 0748601918) 0.07 10*3/uL 0.00-0.06 H LYMPH x10^3 (test code = 731-0) 1.48 10*3/uL 1.09-3.23 MONO x10^3 (test code = 742-7) 1.18 10*3/uL 0.36-1.02 H EOS x10^3 (test code = 711-2) 0.06 10*3/uL 0.06-0.53 BASO x10^3 (test code = 704-7) 0.04 10*3/uL 0.01-0.09 Lab Interpretation (test code = 30395-0) Abnormal [facility] With [id number] 06:17:42* Test Item Value Reference Range Interpretation [...] 34.7 g/dL 31.2-35.0 RDW-SD (test code = 55388-3) 40.6 fL 38.5-51.6 RDW-CV (test code = 788-0) 12.2 % 12.1-15.4 PLT (test code = 777-3) See_Comment [Automated messa ge] The system which generated this result transmitted reference range: 150 - 328 10*3/?L. The reference range was not used to interpret this result as normal/abnormal. MPV (test code = 77214-4) 13.0 fL 9.8-13.0 NRBC/100 WBC (test code = 7379714071) See_Comment [Automated [employer] ssage] The system which generated this result transmitted reference range: 0.0 - 10.0 /100 WBCs. The reference range was not used to interpret this result as normal/abnormal. NRBC x10^3 (test code = 7248079580) <0.01 See_Comment [Automated PIERIS [employer]] The system which generated this result transmitted reference range: 10*3/?L. The reference range was not used to interpret this result as normal/abnormal. GRAN MAT (NEUT) % (test code = 770-8) 77.9 % IMM GRAN % (test code = 2141329686) 0.50 % LYMPH % (test code = 736-9) 11.6 % MONO % (test code = 5905-5) 9.2 % EOS % (test code = 713-8) 0.5 % BASO % (test code = 706-2) 0.3 % GRAN MAT x10^3(ANC) (test code = 1771784284) 9.93 10*3/uL 1.99-6.95 H IMM GRAN x10^3 (test code = 5407505272) 0.07 10*3/uL 0.00-0.06 H LYMPH x10^3 (test code = 731-0) 1.48 10*3/uL 1.09-3.23 MONO x10^3 (test code = 742-7) 1.18 10*3/uL 0.36-1.02 H EOS x10^3 (test code = 711-2) 0.06 10*3/uL 0.06-0.53 BASO x10^3 (test code = 704-7) 0.04 10*3/uL 0.01-0.09 Lab Interpretation (test code = 96467-8) [facility] [id number] 00:00:00* Test Item Value Reference Range Interpretation Comme nts GLUCOSE (test code = 2217) 267 MG/DL BUN (test code = 2208) 19 MG/DL CREATININE (test code = 2214) 0.73 MG/DL eGFR AMER. (test cod e = 89673) 124 ML/MIN/1.73 eGFR NON- AMER. (test code = 36240) 107 ML/MIN/1.73 CALC BUN/CREAT (test code = [...] (test code = 2219) 22 U/L LIPID [id number] 00:00:00* Test Item Value Reference Range Interpretation Comme nts CHOLESTEROL (test code = 2210) 224 MG/DL TRIGLYCERIDES (test code = 2232) 167 MG/DL HDL CHOLESTEROL (test code = 2220) 53 MG/DL CALC LDL CHOL (test code = 2237) 138 MG/DL RISK RATIO LDL/HDL (test cod e = 2238) 2.60 RATIO MICROALBUMIN/CREATININE, RANDOM AND [id number] 00:00:00* Test Item Value Reference Range Interpretation Comme nts CREATININE, URINE, CONC. (te st code = 2072) 36.2 MG/DL MICROALBUMIN, RANDOM (test c ode = 85877) 8.1 MG/DL CALC MICROALB/CREAT RND (sruthi t code = 33518) 224 MG/G HEMOGLOBIN [id number] 00:00:00* Test Item Value Reference Range Interpretation Comme nts HEMOGLOBIN A1c (test code = 49441) 11.6 % COMPREHENSIVE METABOLIC [id number] 00:00:00* Test Item Value Reference Range Interpretation Comme nts GLUCOSE (test code = 2217) 267 MG/DL BUN (test code = 2208) 19 MG/DL CREATININE (test code = 2214) 0.73 MG/DL eGFR AMER. (test cod e = 46980) 124 ML/MIN/1.73 eGFR NON- AMER. (test code = 89473) 107 ML/MIN/1.73 CALC BUN/CREAT (test code = [...] (test code = 2219) 22 U/L LIPID [id number] 00:00:00* Test Item Value Reference Range Interpretation Comme nts CHOLESTEROL (test code = 2210) 224 MG/DL TRIGLYCERIDES (test code = 2232) 167 MG/DL HDL CHOLESTEROL (test code = 2220) 53 MG/DL CALC LDL CHOL (test code = 2237) 138 MG/DL RISK RATIO LDL/HDL (test cod e = 2238) 2.60 RATIO MICROALBUMIN/CREATININE, RANDOM AND [id number] 00:00:00* Test Item Value Reference Range Interpretation Comme nts CREATININE, URINE, CONC. (te st code = 2071) 36.2 MG/DL MICROALBUMIN, RANDOM (test c ode = 43040) 8.1 MG/DL CALC MICROALB/CREAT RND (sruthi t code = 31792) 224 MG/G HEMOGLOBIN [id number] 00:00:00* Test Item Value Reference Range Interpretation Comme nts HEMOGLOBIN A1c (test code = 43624) 11.6 % MICROALBUMIN/CREATININE, RANDOM AND [id number] 00:00:00* Test Item Value Reference Range Interpretation Comme nts CREATININE, URINE, CONC. (te st code = 2071) 84.2 MG/DL MICROALBUMIN, RANDOM (test c ode = 10796) 7.6 MG/DL CALC MICROALB/CREAT RND (sruthi t code = 09557) 90 MG/G MICROALBUMIN/CREATININE, RANDOM AND [id number] 00:00:00* Test Item Value Reference Range Interpretation Comme nts CREATININE, URINE, CONC. (te st code = 2071) 84.2 MG/DL MICROALBUMIN, RANDOM (test c ode = 63575) 7.6 MG/DL CALC MICROALB/CREAT RND (sruthi t code = 99006) 90 MG/G COMPREHENSIVE METABOLIC [id number] 00:00:00* Test Item Value Reference Range Interpretation Comme nts GLUCOSE (test code = 2217) 276 MG/DL BUN (test code = 2208) 20 MG/DL CREATININE (test code = 2214) 0.95 MG/DL eGFR AMER. (test cod e = 01075) 107 ML/MIN/1.73 eGFR NON- AMER. (test code = 23913) 92 ML/MIN/1.73 CALC BUN/CREAT (test code = [...] (test code = 2219) 27 U/L LIPID [id number] 00:00:00* Test Item Value Reference Range Interpretation Comme nts CHOLESTEROL (test code = 2210) 181 MG/DL TRIGLYCERIDES (test code = 2232) 228 MG/DL HDL CHOLESTEROL (test code = 2220) 49 MG/DL CALC LDL CHOL (test code = 2237) 86 MG/DL RISK RATIO LDL/HDL (test cod e = 2238) 1.76 RATIO COMPREHENSIVE METABOLIC [id number] 00:00:00* Test Item Value Reference Range Interpretation Comme nts GLUCOSE (test code = 2217) 276 MG/DL BUN (test code = 2208) 20 MG/DL CREATININE (test code = 2214) 0.95 MG/DL eGFR AMER. (test cod e = 90771) 107 ML/MIN/1.73 eGFR NON- AMER. (test code = 79865) 92 ML/MIN/1.73 CALC BUN/CREAT (test code = [...] (test code = 2219) 27 U/L LIPID [id number] 00:00:00* Test Item Value Reference Range Interpretation Comme nts CHOLESTEROL (test code = 2210) 181 MG/DL TRIGLYCERIDES (test code = 2232) 228 MG/DL HDL CHOLESTEROL (test code = 2220) 49 MG/DL CALC LDL CHOL (test code = 2237) 86 MG/DL RISK RATIO LDL/HDL (test cod e = 2238) 1.76 RATIO HEMOGLOBIN [id number] 00:00:00* Test Item Value Reference Range Interpretation Comme nts HEMOGLOBIN A1c (test code = 03847) 9.4 % HEMOGLOBIN [id number] 00:00:00* Test Item Value Reference Range Interpretation Comme nts HEMOGLOBIN A1c (test code = 72830) 9.4 % CBC W/AUTO [id number] 00:00:00* Test Item Value Reference Range Interpretation [...] (test code = 1015) 210 K/UL HEMOGLOBIN [id number] 00:00:00* Test Item Value Reference Range Interpretation Comme nts HEMOGLOBIN A1c (test code = 59063) 13.3 % [id number] 00:00:00* Test Item Value Reference Range Interpretation Comme nts TSH (test code = 2821) 2.44 UIU/ML LIPID [id number] 00:00:00* Test Item Value Reference Range Interpretation Comme nts CHOLESTEROL (test code = 2210) 253 MG/DL TRIGLYCERIDES (test code = 2232) 162 MG/DL HDL CHOLESTEROL (test code = 2220) 40 MG/DL CALC LDL CHOL (test code = 2237) 181 MG/DL RISK RATIO LDL/HDL (test cod e = 2238) 4.52 RATIO COMPREHENSIVE METABOLIC [id number] 00:00:00* Test Item Value Reference Range Interpretation Comme nts GLUCOSE (test code = 2217) 361 MG/DL BUN (test code = 2208) 19 MG/DL CREATININE (test code = 2214) 0.82 MG/DL eGFR AMER. (test cod e = 05191) 119 ML/MIN/1.73 eGFR NON- AMER. (test code = 30429) 102 ML/MIN/1.73 CALC BUN/CREAT (test code = [...] (test code = 2219) 32 U/L PSA, [id number] 00:00:00* Test Item Value Reference Range Interpretation Comme nts PSA, TOTAL (test code = 2606) 0.36 NG/ML MICROALBUMIN/CREATININE, RANDOM AND [id number] 00:00:00* Test Item Value Reference Range Interpretation Comme nts CREATININE, URINE, CONC. (te st code = 2072) 108.1 MG/DL MICROALBUMIN, RANDOM (test c ode = 07402) 36.3 MG/DL CALC MICROALB/CREAT RND (sruthi t code = 49137) 336 MG/G CBC W/AUTO [id number] 00:00:00* Test Item Value Reference Range Interpretation [...] (test code = 1015) 210 K/UL HEMOGLOBIN [id number] 00:00:00* Test Item Value Reference Range Interpretation Comme nts HEMOGLOBIN A1c (test code = 82027) 13.3 % [id number] 00:00:00* Test Item Value Reference Range Interpretation Comme nts TSH (test code = 2821) 2.44 UIU/ML LIPID [id number] 00:00:00* Test Item Value Reference Range Interpretation Comme nts CHOLESTEROL (test code = 2210) 253 MG/DL TRIGLYCERIDES (test code = 2232) 162 MG/DL HDL CHOLESTEROL (test code = 2220) 40 MG/DL CALC LDL CHOL (test code = 2237) 181 MG/DL RISK RATIO LDL/HDL (test cod e = 2238) 4.52 RATIO COMPREHENSIVE METABOLIC [id number] 00:00:00* Test Item Value Reference Range Interpretation Comme nts GLUCOSE (test code = 2217) 361 MG/DL BUN (test code = 2208) 19 MG/DL CREATININE (test code = 2214) 0.82 MG/DL eGFR AMER. (test cod e = 96336) 119 ML/MIN/1.73 eGFR NON- AMER. (test code = 20446) 102 ML/MIN/1.73 CALC BUN/CREAT (test code = [...] (test code = 2219) 32 U/L PSA, [id number] 00:00:00* Test Item Value Reference Range Interpretation Comme nts PSA, TOTAL (test code = 2606) 0.36 NG/ML MICROALBUMIN/CREATININE, RANDOM AND [id number] 00:00:00* Test Item Value Reference Range Interpretation Comme nts CREATININE, URINE, CONC. (te st code = 2072) 108.1 MG/DL MICROALBUMIN, RANDOM (test c ode = 80632) 36.3 MG/DL CALC MICROALB/CREAT RND (sruthi t code = 41578) 336 MG/G Notes Date/Time Note Provider Source 2024-05-19 13:30:41 Chief Complaint Patient presents with Diabetes Diabetic follow up Nissa Banks MA II Nissa Banks MA, II [facility]
[2024-06-05 20:16] LABS: Absolute Basophils 0.1 K/uL (0-0.5); Absolute Eosinophils 0.4 K/uL (0-0.5); Absolute Lymphocytes (CBC) 1.5 K/uL (0.7-4.9); Absolute Monocytes 0.7 K/uL (0.1-1.3); Absolute Neutrophil 5.5 K/uL (1.8-8.0); Basophils % 0.7 % (0-1.3); Eosinophils % 4.8 % (0-4.4); Hematocrit 22.7 % (39.6-49.0); Hemoglobin 7.5 g/dL (13.6-17.9); Lymphocytes % 18.7 % (15.3-44.8); MCH 31.6 pg (27.0-35.0); MCHC 33.1 g/dL (32.0-36.0); MCV 95.5 fL (80-100); MPV 10.1 fL (7.6-11.3); Monocytes % 8.8 % (3.3-12.3); Platelets 217 thou/uL (152-406); RBC Red Blood Cell Count 2.38 M/uL (4.33-5.43); Red Cell Distribution Width 15.7 % (12.1-15.2)
[2024-06-05 20:21] LABS: PT Prothrombin Time 11.1 SECONDS (9.4-12.5); PTT, Activated Partial Thromb 32.9 SECONDS (24.3-36.9); Protime INR 0.99
--- NOTE | 2024-06-05 20:26 | RAD REPORT ---
EXAM DESCRIPTION: Alejandro Single View06/05/2024 8:17 pm CLINICAL HISTORY: Shortness of breath COMPARISON: December 2023 FINDINGS: The lungs appear clear of acute infiltrate. The heart is mildly enlarged IMPRESSION: No acute abnormalities displayed
[2024-06-05 20:35] LABS: ALT/SGPT 27 U/L (16-61); AST/SGOT 12 U/L (15-37); Albumin 2.9 g/dL (3.4-5.0); Albumin/Globulin Ratio 0.7 (1.1-1.8); Alkaline Phosphatase 125 U/L (45-117); Anion Gap 11.8 mEq/L (5.0-15.0); BUN Blood Urea Nitrogen 75 mg/dL (7-18); Bicarbonate 20 mEq/L (21-32); Bilirubin Total 0.2 mg/dL (0.2-1.0); Glomerular Filtration Rate 16 ml/min (=/>90); Glucose Level 203 mg/dL (74-106); Magnesium 2.5 mg/dL (1.6-2.4); NT PRO-BNP 1825 pg/mL (<125); Potassium 4.8 mEq/L (3.5-5.1); Protein, Total 6.9 g/dL (6.4-8.2); Sodium Level 140 mEq/L (136-145); Troponin High Sensitivity 14.8 pg/mL (<58.9)
[2024-06-05 20:45] LABS: Bilirubin Direct < 0.2 mg/dL (0-0.2)
[2024-06-05] MEDS ORDERED: NA CHLORIDE 0.9% 500 ML ONE (20:55)
--- NOTE | 2024-06-05 21:27 | ER ---
Nurse's Notes [facility] Name: Michelet Godinez Age: 58 yrs Sex: Male : 1965 Arrival Date: 06/05/2024 Time: 17:56 Bed 14 Private MD: Diagnosis: Anemia in other chronic diseases classified elsewhere;Unspecified kidney failure Presentation: 06/05 18:04 Chief complaint: Patient states: sent by provider due to abnormal lab results of tm6 Creatinine 3.6 and Potassium 6.2. Patient has diarrhea and feeling very tired. Coronavirus screen: Vaccine status: Patient reports receiving the 2nd dose of the covid vaccine. Ebola Screen: Patient negative for fever greater than or equal to 101.5 degrees Fahrenheit, and additional compatible Ebola Virus Disease symptoms Patient denies exposure to infectious person. Patient denies travel to an Ebola-affected area in the 21 days before illness onset. No symptoms or risks identified at this time. Initial Sepsis Screen: Does the patient meet any 2 criteria? No. Patient's initial sepsis screen is negative. Does the patient have a suspected source of infection? No. Patient's initial sepsis screen is negative. Risk Assessment: Do you want to hurt yourself or someone else? Patient reports no desire to harm self or others. Onset of symptoms. 18:04 Method Of Arrival: Ambulatory tm6 18:04 Acuity: FERMIN 3 tm6 Triage Assessment: 18:10 General: Appears in no apparent distress. Behavior is calm, cooperative. Pain: tm6 Complains of pain in abdomen Pain does not radiate. Pain currently is 0 out of 10 on a pain scale. at worst was 5 out of 10 on a pain scale. EENT: No signs and/or symptoms were reported regarding the EENT system. Neuro: Level of Consciousness is awake, alert, obeys commands, Oriented to person, place, time, situation, Reports tiredness. Cardiovascular: Patient's skin is warm and dry. Respiratory: Airway is patent Respiratory effort is even, unlabored, Respiratory pattern is regular, symmetrical. GI: Abdomen is round Reports lower abdominal pain, upper abdominal pain, diarrhea. : No signs and/or symptoms were reported regarding the genitourinary system. Derm: No signs and/or symptoms reported regarding the dermatologic system. Musculoskeletal: No signs and/or symptoms reported regarding the musculoskeletal system. Historical: - Allergies: 18:07 No Known Allergies; tm6 - PMHx: 18:07 Hypertensive disorder; diabetes mellitus; Hypercholesterolemia; tm6 - PSHx: 18:07 None; tm6 - Immunization history:: Client reports receiving the 2nd dose of the Covid vaccine. - Infectious Disease History:: Denies. - Social history:: Smoking status: Patient denies any tobacco usage or history of. Patient uses alcohol, occasionally. Screenin:10 [facility] ED Fall Risk Assessment (Adult) History of falling in the last 3 months, rs5 including since admission No falls in past 3 months (0 pts) Confusion or Disorientation No (0 pts) Intoxicated or Sedated No (0 pts) Impaired Gait No (0 pts) Mobility Assist Device Used No (0 pt) Altered Elimination No (0 pt) Score/Fall Risk Level 0 - 2 = Low Risk Oriented to surroundings, Maintained a safe environment. Abuse screen: Denies threats or abuse. Nutritional screening: No deficits noted. Tuberculosis screening: No symptoms or risk factors identified. Assessment: 18:10 General: Appears in no apparent distress. comfortable, Behavior is calm, cooperative. rs5 Pain: Denies pain. Neuro: Level of Consciousness is awake, alert, obeys commands, Oriented to person, place, time, situation. Cardiovascular: Patient's skin is warm and dry. Respiratory: Airway is patent Respiratory effort is even, unlabored, Respiratory pattern is regular, symmetrical. GI: Abdomen is round non-distended, Abd is soft and non tender X 4 quads. : No signs and/or symptoms were reported regarding the genitourinary system. EENT: No signs and/or symptoms were reported regarding the EENT system. Derm: Skin is intact, Skin is pink, warm \T\ dry. Musculoskeletal: Range of motion: intact in all extremities, pt reports generalized weakness. 19:10 General: Appears in no apparent distress. comfortable, Behavior is calm, cooperative, jj7 appropriate for age, drowsy. Pain: Denies pain. Neuro: Level of Consciousness is awake, alert, obeys commands, Oriented to person, place, time, situation. Cardiovascular: Capillary refill < 3 seconds Patient's skin is warm and dry. Respiratory: No deficits noted. Vital Signs: 18:04 BP 149 / 73; Pulse 68; Resp 19; Temp 97.2(TE); Pulse Ox 99% on R/A; Weight 95.25 kg; tm6 Height 5 ft. 5 in. ; Pain 0/10; 18:56 BP 159 / 75; Pulse 67; Resp 17; Pulse Ox 99% on R/A; rs5 19:00 BP 152 / 74; Pulse 67; Resp 18; Pulse Ox 99% ; jj7 20:08 BP 162 / 78; Pulse 69; Resp 17; Pulse Ox 97% ; jj7 21:00 BP 159 / 75; Pulse 66; Resp 19; Pulse Ox 99% ; jj7 22:00 BP 166 / 74; Pulse 84; Resp 17; Pulse Ox 99% ; jj7 23:00 BP 171 / 80; Pulse 81; Resp 19; Pulse Ox 98% ; Pain 0/10; jj7 18:04 Body Mass Index 34.95 (95.25 kg, 165.1 cm) tm6 18:04 Pain Scale: Adult tm6 23:00 Pain Scale: Adult [facility] ED Course: 17:59 Patient arrived in ED. mr 18:07 Triage completed. tm6 18:10 Sunny Thomas, RN is Primary Nurse. rs5 18:10 Arm band placed on right wrist. tm6 18:10 Patient has correct armband on for positive identification. Placed in gown. Bed in low rs5 position. Call light in reach. Side rails up X2. 18:10 No provider procedures requiring assistance completed. rs5 18:22 Gilbert Monahan PA is PHCP. cp 18:22 Don Bui MD is Attending Physician. cp 19:10 Provided Education on: USE OF CALL PAULINO. jj7 19:58 Inserted saline lock: 20 gauge in right antecubital area, using aseptic technique. sa1 Blood collected. Flushed with 10 mL NS. 20:06 Type And Screen Sent. jj7 20:06 Ptt, Activated Sent. jj7 20:07 Basic Metabolic Panel Sent. jj7 20:07 CBC with Diff Sent. jj7 20:07 LFT's Sent. jj7 20:07 Magnesium Sent. jj7 20:07 NT PRO-BNP Sent. jj7 20:07 PT-INR Sent. jj7 20:07 Troponin HS Sent. jj7 20:15 Basic Metabolic Panel Sent. sa1 20:15 CBC with Diff Sent. sa1 20:15 LFT's Sent. sa1 20:15 Magnesium Sent. sa1 20:15 NT PRO-BNP Sent. sa1 20:15 PT-INR Sent. sa1 20:15 Troponin HS Sent. sa1 20:19 XRAY Chest (1 view) In Process Unspecified. EDMS 21:02 Urinalysis w/ reflexes Sent. jj7 21:25 Perla Juarez MD is Hospitalizing Provider. cp 23:30 Patient admitted, IV remains in place. jj7 Administered Medications: 21:01 Drug: NS 0.9% IV 500 ml IV at 500 ml/hr continuous Route: IV; Rate: 500 ml/hr; Site: [facility] right antecubital; 21:50 Follow up: IV Status: Completed infusion jj7 Medication: 18:56 VIS not applicable for this client. rs5 Outcome: 21:27 Decision to Hospitalize by Provider. cp 23:30 Admitted to Med/surg accompanied by tech, via wheelchair, room 215, Report called to renny SBAR FAXED TO 2ND FLOOR RECEIVED BY SARAH BORDEN 23:30 Condition: improved 23:30 Patient left the ED. jj7 Signatures: Dispatcher [employer] EDMS Linda Jj, Reg Reg mr Gilbert Monahan PA PA cp Homar Mcdonald RN RN jjSunny Sanches, RN RN rs5 Yash Zarate RN RN tm6 [facility] Corrections: (The following items were deleted from the chart) 06/06 00:01 00:00 Patient left the ED. jj7 jj7
--- NOTE | 2024-06-05 21:27 | EDPHYS ---
Physician Documentation [facility] Name: Michelet Godinez Age: 58 yrs Sex: Male : 1965 Arrival Date: 06/05/2024 Time: 17:56 Bed 14 Private MD: ED Physician Don Bui HPI: 06/05 19:50 This 58 yrs old Male presents to ER via Ambulatory with complaints of Abnormal cp Lab Results. 19:50 Patient is a 58-year-old male with past medical history significant for hypertension, cp diabetes and chronic kidney disease who was sent to the emergency department for evaluation of anemia. Patient complains of general weakness, fatigue and drowsiness. Patient denies any chest pain. Denies any abdominal pain and/or black or bloody stools. Historical: - Allergies: 18:07 No Known Allergies; tm6 - PMHx: 18:07 Hypertensive disorder; diabetes mellitus; Hypercholesterolemia; tm6 - PSHx: 18:07 None; tm6 - Immunization history:: Client reports receiving the 2nd dose of the Covid vaccine. - Infectious Disease History:: Denies. - Social history:: Smoking status: Patient denies any tobacco usage or history of. Patient uses alcohol, occasionally. ROS: 19:55 Constitutional: Negative for body aches, chills, fever, poor PO intake, cp 19:55 Eyes: Negative for injury, pain, redness, and discharge, cp 19:55 ENT: Negative for drainage from ear(s), ear pain, sore throat, difficulty swallowing, difficulty handling secretions, 19:55 Cardiovascular: Positive for edema, Negative for chest pain, palpitations, 19:55 Respiratory: Negative for cough, shortness of breath, wheezing, 19:55 Abdomen/GI: Negative for abdominal pain, vomiting, diarrhea, constipation, black/tarry stool, rectal bleeding, 19:55 : Negative for urinary symptoms, 19:55 Neuro: Positive for weakness, Negative for altered mental status, syncope, 19:55 All other systems are negative, Exam: 18:17 ECG was reviewed by the Attending Physician. cp 20:00 Constitutional: The patient appears in no acute distress, non-diaphoretic, non-toxic, cp well developed, well nourished, drowsy 20:00 Head/Face: Normocephalic, atraumatic. cp 20:00 Eyes: Periorbital structures: appear normal, Pupils: equal, round, and reactive to light and accomodation, Extraocular movements: intact throughout, Conjunctiva: normal, no exudate, no injection, Sclera: no appreciated abnormality, Lids and lashes: appear normal, bilaterally, 20:00 ENT: External ear(s): are unremarkable, Nose: is normal, Mouth: Lips: moist, Oral mucosa: moist, Posterior pharynx: Airway: no evidence of obstruction, patent, erythema, is not appreciated, exudate, is not appreciated, 20:00 Neck: ROM/movement: is normal, is supple, without pain, no range of motions limitations, no meningismus, no nuchal rigidity, 20:00 Chest/axilla: Inspection: normal, 20:00 Cardiovascular: Rate: normal, Rhythm: regular, Edema: ankle edema, that is mild, JVD: is not appreciated, 20:00 Respiratory: the patient does not display signs of respiratory distress, Respirations: normal, no use of accessory muscles, no retractions, labored breathing, is not present, Breath sounds: decreased breath sounds, are not appreciated, stridor, is not appreciated, wheezing: is not appreciated, 20:00 Abdomen/GI: Inspection: abdomen appears normal, Bowel sounds: active, all quadrants, Palpation: abdomen is soft and non-tender, in all quadrants, Rectal exam: Stool: brown, 20:00 Back: pain, is absent, 20:00 Skin: no rash present. 20:00 Neuro: Orientation: to person, place \T\ time. Mentation: able to follow commands, Motor: moves all fours, no focal deficits, Sensation: is normal, 20:33 ECG was reviewed by the Attending Physician. Vital Signs: 18:04 BP 149 / 73; Pulse 68; Resp 19; Temp 97.2(TE); Pulse Ox 99% on R/A; Weight 95.25 kg; tm6 Height 5 ft. 5 in. ; Pain 0/10; 18:56 BP 159 / 75; Pulse 67; Resp 17; Pulse Ox 99% on R/A; rs5 19:00 BP 152 / 74; Pulse 67; Resp 18; Pulse Ox 99% ; jj7 20:08 BP 162 / 78; Pulse 69; Resp 17; Pulse Ox 97% ; jj7 21:00 BP 159 / 75; Pulse 66; Resp 19; Pulse Ox 99% ; jj7 22:00 BP 166 / 74; Pulse 84; Resp 17; Pulse Ox 99% ; jj7 23:00 BP 171 / 80; Pulse 81; Resp 19; Pulse Ox 98% ; Pain 0/10; jj7 18:04 Body Mass Index 34.95 (95.25 kg, 165.1 cm) tm6 18:04 Pain Scale: Adult tm6 23:00 Pain Scale: Adult j7 MDM: 18:22 Patient medically screened. cp 21:30 Data reviewed: vital signs, nurses notes, lab test result(s), EKG, and as a result, I cp will admit patient. 21:30 Differential diagnosis: GI bleed, chronic anemia, sepsis, acute [place]. Independent cp interpretation of the following test(s) in the Emergency Department EKG: See my EKG interpretation above. Care significantly affected by the following chronic conditions: Diabetes, Hypertension, Chronic Kidney Disease. Counseling: I had a detailed discussion with the patient and/or guardian regarding the historical points, exam findings, and any diagnostic results supporting the discharge/admit diagnosis, lab results. 06/05 19:48 Order name: Basic Metabolic Panel; Complete Time: 20:46 cp 06/05 20:45 Interpretation: Normal except: CL 113; CO2 20; GLUC 203; BUN 75; CRE 4.01; GFR 16. cp 06/05 19:48 Order name: CBC with Diff; Complete Time: 20:45 cp 06/05 20:46 Interpretation: Normal except: RBC 2.38; HGB 7.5; HCT 22.7; RDW 15.7; EOSINOPHIL % 4.8. cp 06/05 19:48 Order name: LFT's; Complete Time: 20:48 cp 06/05 19:48 Order name: Magnesium; Complete Time: 20:48 cp 06/05 19:48 Order name: NT PRO-BNP; Complete Time: 20:48 cp 06/05 19:48 Order name: PT-INR; Complete Time: 20:45 cp 06/05 19:48 Order name: Troponin HS; Complete Time: 20:48 cp 06/05 19:48 Order name: Ptt, Activated; Complete Time: 20:45 cp 06/05 19:48 Order name: Type And Screen 06/05 20:59 Order name: Urinalysis w/ reflexes; Complete Time: 22:15 cp 06/05 21:25 Order name: Packed RBCs (Additional Unit) EDPR 06/05 22:30 Order name: Ferritin EDPR 06/05 22:30 Order name: Transferrin Sat/Iron Binding EDPR 06/05 22:30 Order name: Vitamin B12 Level EDPR 06/05 22:30 Order name: CBC with Automated Diff EDPR 06/05 22:30 Order name: CBC with Automated Diff EDPR 06/05 22:30 Order name: Comprehensive Metabolic Panel EDPR 06/05 22:30 Order name: Comprehensive Metabolic Panel EDPR 06/05 19:48 Order name: XRAY Chest (1 view) 06/05 19:48 Order name: Cardiac monitoring; Complete Time: 20:07 cp 06/05 19:48 Order name: EKG - Nurse/Tech; Complete Time: 20:27 cp 06/05 19:48 Order name: IV Saline Lock; Complete Time: 20:15 cp 06/05 19:48 Order name: Labs collected and sent; Complete Time: 20:07 cp 06/05 19:48 Order name: O2 Per Protocol; Complete Time: 20:07 cp 06/05 19:48 Order name: O2 Sat Monitoring; Complete Time: 20:07 cp EC:17 Rate is 70 beats/min. Rhythm is regular. [place] interval is normal. QRS interval is normal. cp QT interval is normal. T waves are Inverted in lead aVR. Interpreted by me. Reviewed by me. 20:33 Rate is 70 beats/min. Rhythm is regular. [place] interval is normal. QRS interval is normal. cp QT interval is normal. T waves are Inverted in leads III, aVR. Interpreted by me. Reviewed by me. Administered Medications: 21:01 Drug: NS 0.9% IV 500 ml IV at 500 ml/hr continuous Route: IV; Rate: 500 ml/hr; Site: [facility] right antecubital; 21:50 Follow up: IV Status: Completed infusion [facility] Disposition Summary: 06/05/24 21:27 Hospitalization Ordered Notes: Hospitalization Status: Observation cp Provider: Perla Juarez cp Location: Telemetry/MedSurg (observation) cp Condition: Stable cp Problem: new cp Symptoms: are unchanged cp Bed/Room Type: Standard cp Room Assignment: 215(06/05/24 22:39) rv1 Diagnosis - Anemia in other chronic diseases classified elsewhere cp - Unspecified kidney failure cp Forms: - Medication Reconciliation Form cp - SBAR form cp - Leadership Thank You Letter cp Addendum: 06/10/2024 06:59 Co-signature as Attending Physician, Don Bui MD I reviewed the patient's care r n provided by the Advanced Practice Provider and agree with the diagnosis and treatment plan. Signatures: Dispatcher [employer] EDMS Don Bui MD MD rn Gilbert Monahan PA PA cp Homar Mcdonald RN RN jj7 Shelby Grullon rv1 Yash Zarate RN RN tm6 Corrections: (The following items were deleted from the chart) 06/05 19:49 19:48 BASIC METABOLIC PANEL+C.LAB.BRZ ordered. EDMS EDMS 19:49 19:48 CBC+H.LAB.BRZ ordered. EDMS EDMS 19:49 19:48 HEPATIC FUNCTION+C.LAB.BRZ ordered. EDMS EDMS 19:49 19:48 MAGNESIUM+C.LAB.BRZ ordered. EDMS EDMS 19:49 19:48 PROBNP+C.LAB.BRZ ordered. EDMS EDMS 19:49 19:48 PROTIME (+INR)+COAG.LAB.BRZ ordered. EDMS EDMS 19:49 19:48 Troponin High Sensitivity+C.LAB.BRZ ordered. EDMS EDMS 19:49 19:48 PTT, ACTIVATED+COAG.LAB.BRZ ordered. EDMS EDMS 19:49 19:48 TYPE AND SCREEN+BB.LAB.BRZ ordered. EDMS EDMS 19:49 19:49 Chest Single View+RAD.RAD.BRZ ordered. EDMS EDMS 22:39 21:27 cp rv1
[2024-06-05 21:31] LABS: Specific Gravity 1.012 (1.005-1.030); Sqamous Epithelial <5 /HPF (None Seen); Urine Bacteria None Seen /HPF (<20); Urine Bilirubin NEGATIVE (Negative); Urine Blood 1+ (Negative); Urine Clarity Clear (Clear); Urine Color Light-Yellow (Yellow); Urine Culture Reflex Order NOT NEEDED; Urine Glucose 4+ (Negative); Urine Ketones NEGATIVE (Negative); Urine Microscopic Reflex YN ORDER UMIC; Urine Nitrite NEGATIVE (Negative); Urine Protein 3+ (Negative); Urine RBC <5 /HPF (None Seen); Urine Urobilinogen Normal (Normal); Urine WBC <5 /HPF (<5); Urine Yeast (Budding) Trace /HPF (None Seen)
--- NOTE | 2024-06-05 21:57 | P.HP ---
Certification for Inpatient Patient admitted to: Observation With expected LOS: <2 Midnights Patient will require the following post-hospital care: None Practitioner: I am a practitioner with admitting privileges, knowledge of patient current condition, hospital course, and medical plan of care. Services: Services provided to patient in accordance with Admission requirements found in Title 42 Section 412.3 of the Code of Federal Regulations Patient History Date of Service: 06/05/24 Reason for admission: Weakness and abnormal lab History of Present Illness: 58-year-old male with past medical history of HTN, DM, CKD progressive now advanced stage IV, chronic anemia was sent from the clinic for abnormal labs with reported creatinine of 3.6 and potassium of 6.2. Patient was reportedly complaining of generalized weakness. He denies any dizziness or loss of consciousness. He denies any chest pain. At the time of interview, patient denies any weakness. He states he feels fine except for the abnormal blood work. On arrival in the ED vital signs were stable, laboratory workup showed hemoglobin of 7.5, previous known was 7.56 months ago, creatinine noted elevated at 4.1, previous known of 3.8 in the progressive pattern, potassium on repeat labs now is 4.8. Patient is being considered for 1 unit PRBC in the ED. He denies any hematochezia he denies any prior history of GI bleed. ER reports stool exam shows brown stool on rectal exam. He has been admitted for observation. Allergies No Known Allergies Allergy (Verified 12/17/23 19:59) Home Medications: Amlodipine [Norvasc*] 10 mg PO DAILY 11/21/21 Atorvastatin Calcium 20 mg PO DAILY 12/17/23 Empagliflozin [Jardiance] 10 mg PO DAILY 12/17/23 Benzonatate [Tessalon Perle*] 100 mg PO TIDP PRN 12/18/23 Hydralazine HCl 100 mg PO TID 12/18/23 Aspirin [Aspirin EC] 81 mg PO DAILY #30 tab 12/27/23 Furosemide [Lasix] 40 mg PO DAILY 30 Days #30 tablet 12/27/23 carvediloL [Coreg*] 12.5 mg PO BIDWM #60 tab 12/27/23 cloNIDine HCL [Catapres*] 0.1 mg PO TID #90 tab 12/27/23 - Past Medical/Surgical History -: NIDDM2 -: HTN -: Chronic anemia -: CKD stage IV -: R toe amputation - Family History Father -: Heart disease (~65 with MD) - Social History Smoking Status: Never smoker Alcohol use: Yes Place of Residence: Home Review of Systems General: Weakness Neurological: Weakness Physical Examination - Physical Exam General: Alert, In no apparent distress, Oriented x3, Cooperative HEENT: Atraumatic, Normocephalic Neck: Supple, 2+ carotid pulse no bruit Respiratory: Clear to auscultation bilaterally, Normal air movement Cardiovascular: No edema, Normal pulses, Regular rate/rhythm Gastrointestinal: Normal bowel sounds, Soft and benign, Non-distended Musculoskeletal: No clubbing, No swelling Neurological: Normal speech, Normal strength at 5/5 x4 extr, Sensation intact, Cranial nerves 3-12 intact - Studies Laboratory Data (last 24 hrs) 06/05/24 06/05/24 06/05/24 19:58 19:58 19:58 WBC 8.20 Hgb 7.5 L Hct 22.7 L Plt Count 217 PT 11.1 INR 0.99 APTT 32.9 Sodium 140 Potassium 4.8 BUN 75 H Creatinine 4.01 H Glucose 203 H Magnesium 2.5 H Total Bilirubin 0.2 AST 12 L ALT 27 Alkaline Phosphatase 125 H Assessment and Plan - Problems (Diagnosis) (1) Weakness Current Visit: Yes Status: Acute (2) HTN (hypertension) Current Visit: No Status: Acute - Plan Impression Weakness Anemiachronic Hypertension DM History of CHFstable Abnormal labnoted with hyperkalemiaresolved Plan Will admit to observation No need for PRBC since stable hemoglobinwhen compared to previous Potassium controlled, possibly lab error on previous lab from PCPs office Anemia may be due to CKD, consider erythropoietin use but will defer to gastrointestinal technician as outpatient Follow repeat H&H in a.m. if stable can discharge patient home Obtain iron profile and initiate therapy if low If further decline in hemoglobin, may need PRBC and then transferred for GI workup Insulin sliding scale with Accu-Cheks Lovenox subcu for DVT prophylaxis Full code Resume diuretics, chest x-ray clear, no need for increased dosage Total time spent in evaluation greater than 60-minute - Advance Directives Does patient have a Living Will: No Does patient have a Durable POA for Healthcare: No
[2024-06-05] MEDS ORDERED: ONDANSETRON 4 MG/2 ML VIAL IV PRN (22:24)
[2024-06-05] MEDS ORDERED: MORPHINE 2 MG/ML SYR IV PRN (22:24)
[2024-06-05] MEDS ORDERED: HYDRALAZINE HCL 20 MG/ML VIAL IV PRN (22:27)
[2024-06-05] MEDS ORDERED: LORAZEPAM 0.5 MG TABLET PO PRN (22:27)
[2024-06-06] VITALS: BMI 34.8
[2024-06-06 00:25] LABS: Ferritin 83.6 ng/mL (26-388)
[2024-06-06 00:34] VITALS: O2SAT 98
[2024-06-06] MEDS: INSULIN REGULAR (HUMAN) 100 UNIT/ML SQ SCH ×2 (01:08)
[2024-06-06 04:47] LABS: Absolute Basophils 0.1 K/uL (0-0.5); Absolute Eosinophils 0.5 K/uL (0-0.5); Absolute Lymphocytes (CBC) 1.9 K/uL (0.7-4.9); Absolute Monocytes 0.7 K/uL (0.1-1.3); Absolute Neutrophil 5.8 K/uL (1.8-8.0); Basophils % 0.9 % (0-1.3); Hematocrit 23.9 % (39.6-49.0); Hemoglobin 7.8 g/dL (13.6-17.9); MCH 31.4 pg (27.0-35.0); MCHC 32.5 g/dL (32.0-36.0); MCV 96.6 fL (80-100); MPV 10.8 fL (7.6-11.3); Monocytes % 8.1 % (3.3-12.3); Nucleated Red Blood Cells % 0.1 % (0-0); Platelets 218 thou/uL (152-406); RBC Red Blood Cell Count 2.48 M/uL (4.33-5.43); Red Cell Distribution Width 15.6 % (12.1-15.2)
[2024-06-06 04:51] LABS: Albumin 2.7 g/dL (3.4-5.0); Albumin/Globulin Ratio 0.8 (1.1-1.8); Anion Gap 11.6 mEq/L (5.0-15.0); Bilirubin Total 0.2 mg/dL (0.2-1.0); Globulin 3.6 g/dL (2.3-3.5); Potassium 4.6 mEq/L (3.5-5.1); Protein, Total 6.3 g/dL (6.4-8.2)
--- NOTE | 2024-06-06 07:00 | P.PN ---
Date of Service: 06/06/24 Subjective: ROS: 10 point ROS as noted above, otherwise negative Physical Exam: GEN: Alert, oriented, NAD HEENT: Normal conjunctiva, sclera anicteric CV: Regular rate and rhythm, no edema Pulm: Nonlabored respirations on room air, clear bilaterally ABD: Soft, nontender, nondistended Integumentary: No rashes Neuro: Normal speech, normal affect vitals reviewed Problem List: NÉSTOR on CKD4 Hyperkalemia; resolved Iron deficiency anemia; acute on chronic chronic combined diastolic/systolic CHF mild CAD Hypertension NIDDM2 Hx Severe Pulmonary Hypertension NÉSTOR on CKD4 Hyperkalemia; resolved presents with abnormal labs, fatigue, weakness. Creatinine 3.6, Potassium 6.2 given 500ml IVF bolus in ED hyperkalemia resolved continue to monitor renal function creatinine improving nephrology consulted Iron deficiency anemia; acute on chronic Has history of iron deficiency requiring IV iron in the past. No obvious bleeds. No black stool. iron studies: iron 41, tsat% 13.3% hgb 7.5 -> 7.9 (06/06) monitor H&H. Chronic combined diastolic/systolic CHF mild CAD Hypertension confirm home meds, restart as appropriate NIDDM2 ACHS Accu-Chek, SSI VTE: heparin sq Code: Full Dispo: Home, ~1-2 days Renal function improves / stable hgb Time Spent Managing Pts Care (In Minutes): 40
[2024-06-06] MEDS: ASPIRIN EC 81 MG TAB PO SCH (08:18)
[2024-06-06] MEDS: carvediloL 12.5 MG TAB PO SCH (08:18)
[2024-06-06] MEDS: FUROSEMIDE 40 MG TABLET PO SCH (08:18)
[2024-06-06] MEDS: HEPARIN 5000 UNIT/ML 1 ML VIAL SQ SCH (08:19)
[2024-06-06] MEDS: HOME MED 1 EA UNK (Empagliflozin [Jardiance] 10 MG Tablet) PO SCH (08:19)
[2024-06-06] MEDS: ATORVASTATIN 20 MG TAB PO SCH (08:19)
[2024-06-06 12:53] VITALS: BP 170/77; TEMP 98.2
--- NOTE | 2024-06-06 14:37 | EKG ---
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
--- NOTE | 2024-06-06 14:38 | EKG ---
Test Date: 2024-06-05 Test Time: 18:13:20 Delivery Rn: ARIAS MEASUREMENT RESULTS: Intervals: Rate: 70 PA: 182 QRSD: 92 QT: 394 QTc: 425 [place]: P: 35 PA: 182 QRS: 11 T: 8 INTERPRETIVE STATEMENTS: Normal sinus rhythm Normal ECG Compared to ECG 12/17/2023 12:44:12 No significant changes Electronically Signed On 06-06-24 14:37:45 CDT by Kyle Cast
--- NOTE | 2024-06-07 06:32 | P.DS ---
Admission Date: 06/05/24 Discharge Date: 06/07/24 Disposition: ROUTINE DISCHARGE Discharge Condition: GOOD Reason for Admission: Weakness and abnormal lab Brief History of Present Illness: 58 yo M, PMH: HTN, DM, CKD progressive now advanced stage IV, chronic anemia Patient was sent from the clinic for abnormal labs with reported creatinine of 3.6 and potassium of 6.2. Patient was reportedly complaining of generalized weakness. He denies any dizziness or loss of consciousness. He denies any chest pain. At the time of interview, patient denies any weakness. He states he feels fine except for the abnormal blood work. On arrival in the ED vital signs were stable, laboratory workup showed hemoglobin of 7.5, previous known was 7.56 months ago, creatinine noted elevated at 4.1, previous known of 3.8 in the progressive pattern, potassium on repeat labs now is 4.8. Patient is being considered for 1 unit PRBC in the ED. He denies any hematochezia he denies any prior history of GI bleed. ER reports stool exam shows brown stool on rectal exam. He has been admitted for observation. Hospital Course: Problem List: NÉSTOR on CKD4, improved Hyperkalemia; resolved Iron deficiency anemia; acute on chronic chronic combined diastolic/systolic CHF mild CAD Hypertension NIDDM2 Hx Severe Pulmonary Hypertension Physician discharge instructions: Patient presented per his PCP recommendation with abnormal labwork (Creatinine 3.6, Potassium 6.2). Here in the ED, creatinine was noted to be 4.01, potassium 4.8, hgb 7.5. On further discussion with patient, he reports the original outpatient labwork wasn't very recent but rather 1-2 weeks ago (couldn't give more specific timing). He was given IVF bolus in the ED and had some improvement. Patient was monitored overnight to ensure stable/improving labs. Hemoglobin remained stable in high 7s similar to prior hospitalizations. Creatinine improved and was near his baseline. Iron studies this hospitalization were consistent with iron deficiency anemia. Iron: 41, tsat% 13.3 - slightly improved compared to iron studies back in december. Advised to start oral iron supplementation on discharge. He was not taking these before. Patient was feeling better back to his usual self and deemed stable for discharge. Advised to follow up with nephrology in 1-2 weeks for further discussion. Repeat blood work in ~1 week to monitor creatinine, hemoglobin, electrolytes. Creatinine on discharge: 3.7 Hgb: 7.8 Medications: oral iron tablets continue home meds as previously prescribed. Follow up: PCP 3-5 days Nephrology 1-2 weeks Please call to schedule / confirm appointments Physical Exam: GEN: Alert, oriented, NAD HEENT: Normal conjunctiva, sclera anicteric CV: Regular rate and rhythm, no edema Pulm: Nonlabored respirations on room air, clear bilaterally ABD: Soft, nontender, nondistended Integumentary: No rashes Neuro: Normal speech, normal affect Vital Signs/Physical Exam: Temp Pulse Resp BP Pulse Ox 98.2 F 66 16 170/77 H 95 06/06/24 12:00 06/06/24 12:00 06/06/24 12:00 06/06/24 12:00 06/06/24 12:00 Laboratory Data at Discharge: WBC 9.00 thou/uL (4.3-10.9) 06/06/24 04:10 Hgb 7.8 g/dL (13.6-17.9) L 06/06/24 04:10 Hct 23.9 % (39.6-49.0) L 06/06/24 04:10 Plt Count 218 thou/uL (152-406) 06/06/24 04:10 PT 11.1 SECONDS (9.4-12.5) 06/05/24 19:58 INR 0.99 06/05/24 19:58 APTT 32.9 SECONDS (24.3-36.9) 06/05/24 19:58 Sodium 143 mEq/L (136-145) 06/06/24 04:10 Potassium 4.6 mEq/L (3.5-5.1) 06/06/24 04:10 BUN 71 mg/dL (7-18) H 06/06/24 04:10 Creatinine 3.70 mg/dL (0.70-1.30) H 06/06/24 04:10 Glucose 163 mg/dL (74-106) H 06/06/24 04:10 Magnesium 2.5 mg/dL (1.6-2.4) H 06/05/24 19:58 Total Bilirubin 0.2 mg/dL (0.2-1.0) 06/06/24 04:10 AST 11 U/L (15-37) L 06/06/24 04:10 ALT 23 U/L (16-61) 06/06/24 04:10 Alkaline Phosphatase 113 U/L (45-117) 06/06/24 04:10 Home Medications: Amlodipine [Norvasc*] 10 mg PO DAILY 11/21/21 Atorvastatin Calcium 20 mg PO DAILY 12/17/23 Empagliflozin [Jardiance] 10 mg PO DAILY 12/17/23 Benzonatate [Tessalon Perle*] 100 mg PO TIDP PRN 12/18/23 Hydralazine HCl 100 mg PO TID 12/18/23 Aspirin [Aspirin EC] 81 mg PO DAILY #30 tab 12/27/23 Furosemide [Lasix] 40 mg PO DAILY 30 Days #30 tablet 12/27/23 carvediloL [Coreg*] 12.5 mg PO BIDWM #60 tab 12/27/23 cloNIDine HCL [Catapres*] 0.1 mg PO TID #90 tab 12/27/23 Ferrous Sulfate [Feosol] 325 mg PO DAILY 30 Days #30 tab 06/06/24 New Medications: Ferrous Sulfate [Feosol] 325 mg PO DAILY 30 Days #30 tab Physician Discharge Instructions: Physician discharge instructions: Patient presented per his PCP recommendation with abnormal labwork (Creatinine 3.6, Potassium 6.2). Here in the ED, creatinine was noted to be 4.01, potassium 4.8, hgb 7.5. On further discussion with patient, he reports the original outpatient labwork wasn't very recent but rather 1-2 weeks ago (couldn't give more specific timing). He was given IVF bolus in the ED and had some improvement. Patient was monitored overnight to ensure stable/improving labs. Hemoglobin remained stable in high 7s similar to prior hospitalizations. Creatinine improved and was near his baseline. Iron studies this hospitalization were consistent with iron deficiency anemia. Iron: 41, tsat% 13.3 - slightly improved compared to iron studies back in december. Advised to start oral iron supplementation on discharge. He was not taking these before. Patient was feeling better back to his usual self and deemed stable for discharge. Advised to follow up with nephrology in 1-2 weeks for further discussion. Repeat blood work in ~1 week to monitor creatinine, hemoglobin, electrolytes. Creatinine on discharge: 3.7 Hgb: 7.8 Medications: oral iron tablets continue home meds as previously prescribed. Follow up: PCP 3-5 days Nephrology 1-2 weeks Please call to schedule / confirm appointments Followup: NONE,NONE [Primary Care Provider] - Time spent managing pt's care (in minutes): 45
== END 2024-06-06 14:46 | disposition home or self-care (01) ==
LOC: ER 17:56 → ERHOLD 22:24 → 2ND 23:28
PROVIDERS: ADMIT Internal Medicine; ATTEND Hospitalist
DX: R53.1 Weakness (principal); R94.4 Abnormal results of kidney function studies; E87.5 Hyperkalemia; I10 Essential (primary) hypertension; I50.42 Chronic combined systolic (congestive) and diastolic (congestive) heart failure; I25.10 Atherosclerotic heart disease of native coronary artery without angina pectoris; E11.9 Type 2 diabetes mellitus without complications; N18.4 Chronic kidney disease, stage 4 (severe); D64.9 Anemia, unspecified; N17.9 Acute kidney failure, unspecified
CPT/HCPCS: 93005 ×2; 85025 ×2; 81001; 80048; 36415 ×2; 86900; 83735; 86850; 85610; 86901; 82947 ×3; 80076; 85730; 86920; 84484; 82728; 82607; 83540; 80053; 83880; 84466; 71045; 96360; 99285; J1644; J7040; G0378

== ENCOUNTER 2024-06-23 15:08 | Emergency (ER) | payer OTHER ==
--- OUTSIDE RECORDS SUMMARY | 2024-06-23 15:19 | XMS REPORT | Continuity of Care Document ---
Author Name Unknown Address [address] [facility] [address] [place] [address] [facility] thconnect Address [address] [facility] [address] [place] [address] Care Team Providers Care Plan Nurse Name Role Phone Yuma Desmond OSBORNE Primary Care Physician [phone] MARQUES THOMAS Attending Clinician Unavailable JENNIFER PRICE Attending Clinician UnavailMALACHI Mckay Attending Clinician Unava ilable LAB90 Attending Clinician Unavailable BEATA CHEN Attending Clinician Unav ailable CARLEE CARRILLO Attending Clinician UnavailQUINN Rubin Attending Clinician Unavail able JOAN STACY Attending Clinician Unavailable FELIPA CALHOUN Attending Clinician Unavailable 39, HOLTER Attending Clinician Unavailable Jewel BORDEN, Rebecca Mott Attending Clinician [phone] JOAN FAGAN Attending Clinician Unavailhaile Novoa MD, Micah A Attending Clinician [phone] Denise KINSEY, Jaz Attending Clinician [phone] Gayle KINSEY, Gianluca Zamora Attending Clinician [phone] Joan Fagan MD Attending Clinician [phone] Diego Rogers DO Attending Clinician [phone] TRAVIS ASHTON Attending Clinician Unavailable Aurora Goisn LVN Attending Clinician [phone] Wong López Attending Clinician [phone] Gm De Los Santos MD Attending Clinician [phone] Chandler Villatoro MD Attending Clinician [phone] Travis GUSTAFSON, Nomi E Attending Clinician [phone] JOAN FAGAN Admitting Clinician Joan Ibarra MD Admitting Clinician [phone] Gm De Los Santos MD Admitting Clinician [phone] Payers Payer Name Policy Type Policy Number Effective Date Expirati on Date Source [employer] MP [employer] 5 O [employer] 94 ON 9 [id number] 2023 00:00:00 Problems Condition Name Condition Details [...] specified anemias Other specified anemias Disease Active 2-09 00:00: 00 Sonia cheatham Type 2 diabetes 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, without long-term current use of insulin (multi HCC) Type 2 diabetes 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, without long-term current use of insulin (multi HCC) Disease Active 6-12 00:00: 00 Sonia cheatham Shortness of breath Shortness of breath Disease Active - 00:00: 00 [facility] DM type 2 with diabetic mixed hyperlipid emia (multi HCC) DM type 2 with diabetic mixed hyperlipid emia (multi HCC) Disease Active - 00:00: 00 Sonia Seybold - Externa l Primary hypertensi on Primary hypertensi on Disease Active 12-06 00:00: 00 Sonia Orr - Taraa l Chronic cough Chronic cough Disease Active 12-06 00:00: 00 Sonia Kirby - Externa l Edema, lower extremity Edema, lower extremity Disease Active 12-06 00:00: 00 Sonia Kirby - Externa l Severe obesity (BMI 35.0-35.9 with comorbidit y) Severe obesity (BMI 35.0-35.9 with comorbidit y) Disease Active 12-06 00:00: 00 Sonia Jacobmargarette - Externa l Obesity (BMI 30-39.9) Obesity (BMI 30-39.9) Disease Active 07-04 00:00: 00 [facility] Cellulitis Cellulitis Disease Active 07-03 00:00: 00 [facility] Allergies, Adverse Reactions, Alerts Allergy Name Allergy Type Status Severity Reaction(s) Onset Date Inactive Date Treating Clinician Comments Source NO KNOWN ALLERGIE S Drug Class Active [facility] Social History Social Habit Start Date Stop Date Quantity Comments Source History SDOH Social Connections Get Together [facility] History SDOH Social Connections Latter Day [facility] History SDOH Social Connections Membership [facility] History SDOH Social Connections Meetings [facility] Gender identity Lorenza Orr - External [...] Alcohol Frequency 2023-01-31 00:00:00 2023-01-31 00:00:00 5 [facility] History SDOH Alcohol Std Drinks 2023-01-31 00:00:00 2023-01-31 00:00:00 1 [facility] History SDOH Alcohol Binge 2023-01-31 00:00:00 2023-01-31 00:00:00 1 [facility] History SDOH Social Connections Phone 2023-01-31 00:00:00 2023-01-31 00:00:00 3 [facility] History SDOH Social Connections Living 2023-01-31 00:00:00 2023-01-31 00:00:00 3 [facility] History SDOH Financial 2023-01-31 00:00:00 2023-01-31 00:00:00 2 [facility] History SDOH Food Worry 2023-01-31 00:00:00 2023-01-31 00:00:00 3 [facility] History SDOH Food Scarcity 2023-01-31 00:00:00 2023-01-31 00:00:00 3 [facility] History SDOH Transport Med 2023-01-31 00:00:00 2023-01-31 00:00:00 2 [facility] History SDOH Transport Non-Med 2023-01-31 00:00:00 2023-01-31 00:00:00 2 [facility] History SDOH Housing Unable to Pay 2023-01-31 00:00:00 2023-01-31 00:00:00 1 [facility] History SDOH Housing Places Lived 2023-01-31 00:00:00 2023-01-31 00:00:00 1 [facility] History SDOH Housing Homeless Last Year 2023-01-31 00:00:00 2023-01-31 00:00:00 2 [facility] Exposure to SARS-CoV-2 (event) 2023-01-20 00:00:00 2023-01-30 18:08:00 Not sure [facility] Alcohol Comment 2022-12-06 00:00:00 2022-12-06 00:00:00 occasionally Sonia Orr - External Education 2022-12-06 00:00:00 2022-12-06 00:00:00 13 Sonia Orr - External Tobacco use and exposure 2021-07-03 00:00:00 2021-07-03 00:00:00 Smokeless tobacco non-user [facility] Sex assigned at 1965 00:00:00 1965 00:00:00 Sonia Hollingsworth Smoking Status Start Date Stop Date [...] oral Tablet 05-19 13:30: 40 Yes 100mg Q.[id number] 3D Take 1 tablet (100 mg total) [...] MG oral Tablet 03-20 00:00: 00 Yes [id number] 3 5mg Take 1 tablet (5 mg total) by mouth in the morning and 1 tablet (5 mg total) in the evening. Take before meals. Sonia cheatham Atorvastati n Calcium 80 MG oral Tablet 20 00:00: 00 Yes [id number] 3 80mg QD Take 1 tablet (80 mg total) by mouth nightly. Sonia cheatham Carvedilol 12.5 MG oral Tablet 02-21 00:00: 00 Yes 12.5mg Take 1 tablet (12.5 mg total) by mouth in the morning and 1 tablet (12.5 mg total) in the evening. Take with meals. Sonia cheatham glipiZIDE 5 MG oral Tablet 02-21 00:00: 00 03-20 00:00 :00 No [id number] 3 5mg Take 1 tablet (5 mg total) by mouth daily (before a meal). Sonia cheatham Furosemide (Lasix) 40 MG oral Tablet 02-13 00:00: 00 Yes [id number] 40mg Q.5D Take 1 tablet (40 mg total) by mouth 2 times daily. Sonia cheatham Losartan Potassium 25 MG oral Tablet 02-13 00:00: 00 Yes [id number] 25mg QD Take 1 tablet (25 mg [...] MG oral Tablet 01-29 00:00: 00 Yes [id number] 40mg Take 1 tablet (40 mg total) by mouth 2 times daily. Sonia cheatham Clonidine HCl (CATAPRES) 0.1 MG oral Tablet 01-29 00:00: 00 Yes .1mg Q.[id number] 3D Take 1 tablet (0.1 mg total) by mouth 3 times daily. Sonia cheatham Amlodipine Besylate 10 MG oral Tablet 01-29 00:00: 00 Yes [id number] 10mg QD Take 1 tablet (10 mg total) by mouth daily. Sonia cheatham Carvedilol 12.5 MG oral Tablet 01-28 00:00: 00 Yes 12.5mg Take 1 tablet (12.5 mg total) by mouth in the morning and 1 tablet (12.5 mg total) in the evening. Take with meals. Sonia cheatham Aspirin (Aspirin 81) 81 MG oral Chewable Tablet 01-28 00:00: 00 Yes 81mg QD Take 1 tablet (81 mg total) by mouth daily. Sonia cheatham Empaglifloz in (Jardiance) 10 MG oral Tablet 4-05 00:00: 00 Yes [id number] 10mg QD Take 1 tablet (10 mg total) by mouth daily. Sonia cheatham Furosemide (Lasix) 40 MG oral Tablet 01-02 00:00: 00 01-29 00:00 :00 No [id number] 40mg Take 1 tablet (40 mg total) by mouth daily. Sonia cheatham glipiZIDE 5 MG oral Tablet 12-09 00:00: 00 Yes [id number] 5mg Take 1 tablet (5 mg total) by mouth daily (before a meal). Sonia cheatham Benzonatate (Tessalon Perles) 100 MG oral Capsule 11-30 00:00: 00 Yes [id number] 100mg Q.[id number] 3D Take 1 capsule (100 mg total) by mouth 3 times daily as needed for cough. Sonia cheatham glipiZIDE 5 MG oral Tablet 11-16 00:00: 00 Yes [id number] 5mg Take 1 tablet (5 mg total) by mouth daily (before a meal). Sonia cheatham Empaglifloz in (Jardiance) 10 MG oral Tablet - 00:00: 00 Yes [id number] 10mg Take 1 tablet (10 mg total) by mouth daily. Sonia cheatham Amlodipine Besylate 10 MG oral Tablet - 00:00: 00 Yes [id number] 10mg Take 1 tablet (10 mg total) by mouth daily. Sonia cheatham Furosemide (Lasix) 40 MG oral Tablet 2- 00:00: 00 Yes [id number] 40mg Take 1 tablet (40 mg total) by mouth 2 times daily. Sonia cheatham Losartan Potassium (COZAAR) 100 MG oral Tablet 11-16 00:00: 00 Yes [id number] 100mg Take 1 tablet (100 mg total) by mouth daily. Sonia cheatham Atorvastati n Calcium 20 MG oral Tablet 11-16 00:00: 00 Yes [id number] 3 20mg Take 1 tablet (20 mg total) by mouth nightly. Sonia cheatham Blood Glucose Monitoring Suppl does not apply Kit 11-16 00:00: 00 Yes [id number] 1{each} Q.5D Inject 1 each into the skin 2 times daily Check BS twice daily. Sonia cheatham Glucose Blood in vitro Strip 11-16 00:00: 00 Yes [id number] 1{each} Q.5D 1 each by other route 2 times daily Check BS twice daily. Sonia cheatham Lancets 33G does not apply Misc 11-16 00:00: 00 Yes [id number] 1{each} Q.5D 1 each by does not apply route 2 times daily Check BS twice daily. Sonia cheatham Losartan Potassium (COZAAR) 100 MG oral Tablet 2022-10 1-24 00:00: 00 11-16 00:00 :00 No [id number] 100mg Take 1 tablet (100 mg total) by mouth daily. Sonia cheatham Amlodipine Besylate 10 MG oral Tablet 2022-10 1- 00:00: 00 11-16 00:00 :00 No [id number] 10mg TAKE 1 TABLET BY MOUTH EVERY DAY Sonia cheatham glipiZIDE 10 MG oral Tablet 2022-10 0- 00:00: 00 11-16 00:00 :00 No [id number] 3 TAKE 1 TABLET BY MOUTH IN THE MORNING AND IN THE EVENING BEFORE MEALS Sonia cheatham Januvia 100 MG oral Tablet 9-28 00:00: 00 11-16 00:00 :00 No [id number] 100mg TAKE 1 TABLET BY MOUTH EVERY DAY Sonia cheatham Furosemide (Lasix) 40 MG oral Tablet -10 00:00: 00 11-16 00:00 :00 No [id number] 40mg Take 1 tablet (40 mg total) by mouth 2 times daily Sonia cheatham Atorvastati n Calcium 20 MG oral Tablet 04-13 00:00: 00 11-16 00:00 :00 No [id number] 3 20mg Take 1 tablet (20 mg total) by mouth nightly Sonia cheatham Furosemide (Lasix) 40 MG oral Tablet 03-19 00:00: 00 Yes [id number] 40mg Take 1 tablet (40 mg total) by mouth 2 times daily Sonia cheatham chlorthalid one 25 mg tablet 02-10 00:00: 00 08-10 04:59 :00 No [id number] 25mg Take 1 tablet by mouth daily for [address] [facility] amLODIPine 10 mg tablet 02-09 15:20: 31 Yes 10mg Take 1 tablet by mouth daily. [facility] metFORMIN 1,000 mg tablet 02-09 15:20: 31 Yes 1000mg Take 1 tablet by mouth 2 (two) times daily with meals. [facility] glipiZIDE 10 mg tablet 02-09 15:20: 31 Yes 10mg Take 1 tablet by mouth daily. [facility] POTASSIUM-9 9 ORAL 02-09 15:20: 31 Yes 10meq Take [address] [facility] furosemide (LASIX) 20 mg tablet 02-09 13:03: 35 02-09 00:00 :00 No 20mg Take 1 tablet by mouth daily. [facility] losartan 100 mg tablet 02-09 13:03: 35 02-09 00:00 :00 No 100mg Take 1 tablet by mouth daily. [facility] furosemide (LASIX) injection 40 mg 02-09 01:00: 00 Yes 40mg 40 mg, Slow IV Push, Q12H, First dose on Thuy 02/08/23 at 2000, Until Discontinu ed, Routine [facility] glipiZIDE 10 MG oral Tablet 02-09 00:00: 00 Yes [id number] 3 TAKE 1 TABLET BY MOUTH IN THE MORNING AND IN THE EVENING BEFORE MEALS Sonia cheatham furosemide 40 mg tablet 02-09 00:00: 00 08-09 04:59 :00 No [id number] 40mg Take 1 tablet by mouth every morning and evening for [address] [facility] atorvastati n 80 mg tablet 02-09 00:00: 00 08-09 04:59 :00 No [id number] 80mg Take 1 tablet by mouth at bedtime for [address] [facility] carvediloL 25 mg tablet 02-09 00:00: 00 08-09 04:59 :00 No [id number] 25mg Take 1 tablet by mouth 2 (two) times daily with meals for [address] [facility] hydrALAZINE 100 mg tablet 02-09 00:00: 00 08-09 04:59 :00 No [id number] 100mg Take 1 tablet by mouth 3 (three) times daily for [address] [facility] isosorbide dinitrate 40 mg tablet 02-09 00:00: 00 08-09 04:59 :00 No [id number] 40mg Take 1 tablet by mouth 3 (three) times daily for [address] [facility] hydroCHLORO thiazide 25 MG oral Tablet 02-09 00:00: 00 03-19 00:00 :00 No [id number] 25mg Take 1 tablet (25 mg total) by mouth daily Sonia cheatham chlorthalid one (HYGROTON) tablet 25 mg 02-08 14:00: 00 Yes 25mg 25 mg, Oral, DAILY, First dose on Thuy 02/08/23 at 0900, Until Discontinu ed, Routine [facility] heparin (porcine) injection 5,000 Units 02-08 13:00: 00 02-09 01:27 :00 No 5000U 5,000 Units, Subcutaneo us, Q12H, 2 doses, First dose (after last modificati on) on Sun02/08/23 at 0800, Last dose on Sun02/08/23 at 2000, Routine [facility] isosorbide dinitrate (ISORDIL) tablet 40 mg 02-07 17:00: 00 Yes 40mg 40 mg, Oral, TIDHOL, First dose (after last modificati on) on Sun02/07/23 at 1200, Until Discontinu ed, Routine [facility] HYDROcodone -acetaminop hen (NORCO 5) 5-325 mg tablet 1 tablet 02-07 02:00: 00 02-07 01:48 :00 No 1{tbl} 1 tablet, Oral, ONCE, 1 dose, On Sun02/06/23 at 2100, Routine [facility] hydrALAZINE (APRESOLINE ) tablet 100 mg 02-06 19:00: 00 Yes 100mg 100 mg, Oral, TID, First dose (after last modificati on) on Sun02/06/23 at 1400, Until Discontinu ed, Routine [facility] KCL (KLOR-CON M20) tablet 20 mEq 02-06 13:15: 00 02-06 14:49 :00 No 20meq 20 mEq, Oral, ONCE, 1 dose, On Sun02/06/23 at 0815, Routine [facility] regadenoson (LEXISCAN) injection 0.4 mg 02-05 19:30: 00 02-05 19:23 :00 No [id number] .4mg 0.4 mg, IV Push, ONCE, 1 dose, On Sun02/05/23 at 1430, Routine
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 tc 99m-tetrofo smin (MYOVIEW) injection 40 millicurie 02-05 19:20: 00 02-05 19:20 :00 No [id number] 40mCi 40 millicurie , Intravenou s, ONCE, 1 dose, On Sun02/05/23 at 1445, Routine [facility] tc 99m-tetrofo smin (MYOVIEW) injection 15 millicurie 02-05 18:15: 00 02-05 18:15 :00 No [id number] 15mCi 15 millicurie , Intravenou s, ONCE, 1 dose, On Sun02/05/23 at 1315, Routine [facility] isosorbide dinitrate (ISORDIL) tablet 30 mg 02-05 17:00: 00 02-07 15:56 :10 No 30mg 30 mg, Oral, TIDHOL, First dose (after last modificati on) on Sun02/05/23 at 1200, Until Discontinu ed, Routine [facility] spironolact one (ALDACTONE) tablet 25 mg 02-05 14:00: 00 02-05 16:06 :18 No 25mg 25 mg, Oral, DAILY, First dose (after last modificati on) on Sun02/05/23 at 0900, Until Discontinu ed, Routine [facility] isosorbide dinitrate (ISORDIL) tablet 10 mg 02-04 16:00: 00 02-05 16:06 :12 No 10mg 10 mg, Oral, TIDHOL, First dose on Sun02/04/23 at 1100, Until Discontinu ed, Routine [facility] carvediloL (COREG) tablet 25 mg 02-04 13:00: 00 Yes 25mg 25 mg, Oral, BID MEALS, First dose (after last modificati on) on Sun02/04/23 at 0800, Until Discontinu ed, Routine [facility] carvediloL (COREG) tablet 12.5 mg 02-03 16:30: 00 02-04 12:40 :41 No 12.5mg 12.5 mg, Oral, BID MEALS, First dose on 02/03/23 at 1130, Until Discontinu ed, Routine [facility] hydrALAZINE (APRESOLINE ) tablet 75 mg 02-02 23:00: 00 02-06 16:11 :05 No 75mg 75 mg, Oral, Q6H, First dose (after last modificati on) on Sun02/02/23 at 1800, Until Discontinu ed, Routine [facility] sennosides- docusate sodium (SENOKOT-S) 8.6-50 mg per tablet 1 tablet 02-02 17:00: 00 Yes 1{tbl} 1 tablet, Oral, BID, First dose on Sun02/02/23 at 1200, Until Discontinu ed, Routine [facility] polyethylen e glycol 3350 powder 17 g 02-02 17:00: 00 Yes 17g 17 g, Oral, DAILY, First dose on Sun02/02/23 at 1200, Until Discontinu ed, Routine [facility] furosemide (LASIX) injection 80 mg 02-02 14:00: 00 02-06 14:32 :30 No 80mg 80 mg, IV Push, QAM+PM, First dose (after last modificati on) on Sun02/02/23 at 0900, Until Discontinu ed, JUAN [facility] spironolact one (ALDACTONE) tablet 50 mg 02-02 14:00: 00 02-04 15:48 :23 No 50mg 50 mg, Oral, DAILY, First dose (after last modificati on) on Sun02/02/23 at 0900, Until Discontinu ed, [facility]sphere [facility] (DEFINITY) injection 2 mL 02-01 17:15: 00 02-01 17:15 :00 No [id number] 2mL 2 mL, IV Push, ONCE, 1 dose, On Sun02/01/23 at 1215, Routine [facility] hydrALAZINE (APRESOLINE ) tablet 50 mg 02-01 17:00: 00 02-02 17:59 :19 No 50mg 50 mg, Oral, Q6H, First dose (after last modificati on) on Sun02/01/23 at 1200, Until Discontinu ed, Routine [facility] spironolact one (ALDACTONE) tablet 25 mg 02-01 14:00: 00 02-02 12:22 :23 No 25mg 25 mg, Oral, DAILY, First dose (after last modificati on) on Sun02/01/23 at 0900, Until Discontinu ed, Routine [facility] atorvastati n (LIPITOR) tablet 80 mg 02-01 02:00: 00 Yes 80mg 80 mg, Oral, QHS, First dose (after last modificati on) on Sun01/31/23 at 2100, Until Discontinu ed, Routine [facility] hydrALAZINE (APRESOLINE ) tablet 25 mg 01-31 20:00: 00 02-01 13:14 :59 No 25mg 25 mg, Oral, Q6H, First dose on Sun01/31/23 at 1500, Until Discontinu ed, Routine [facility] spironolact one (ALDACTONE) tablet 12.5 mg 01-31 18:45: 00 02-01 11:40 :54 No 12.5mg 12.5 mg, Oral, DAILY, First dose on Sun01/31/23 at 1345, Until Discontinu ed, Routine [facility] amLODIPine (NORVASC) tablet 10 mg 01-31 14:00: 00 Yes 10mg 10 mg, Oral, DAILY, First dose on Sun01/31/23 at 0900, Until Discontinu ed, Routine [facility] aspirin chewable tablet 81 mg 01-31 14:00: 00 02-07 18:08 :07 No 81mg 81 mg, Oral, DAILY, First dose on Sun01/31/23 at 0900, Until Discontinu ed, Routine [facility] furosemide (LASIX) injection 40 mg 01-31 14:00: 00 02-02 13:05 :42 No 40mg 40 mg, IV Push, QAM+PM, First dose (after last reorder) on Sun01/31/23 at 0900, Until Discontinu ed, JUAN [facility] Sliding Scale Insulin - Lispro (HumaLOG) + Fsbg Testing 01-31 13:00: 00 Yes Subcutaneo us, TID MEALS+HS, First dose on Sun01/31/23 at 0800, Until Discontinu ed, Routine [facility] heparin (porcine) injection 5,000 Units 01-31 13:00: 00 02-08 11:53 :28 No 5000U 5,000 Units, Subcutaneo us, Q12H, First dose on Sun01/31/23 at 0800, Until Discontinu ed, Routine [facility] dextrose 10% (D10W) bolus infusion 250 [...] blood glucose is < 80 mg/dL, repeat.
[facility] glucagon (GLUCAGEN DIAGNOSTIC KIT) injection 1 mg 01-31 06:12: 08 Yes 1mg 1 mg, Intramuscu lar, PRN, Starting on Sun01/31/23 at 0112, Until Discontinu ed, JUAN, Blood Glucose < or = 70 mg/dL and patient is NPO, unable to swallow or has mental changes. [facility] acetaminoph en (TYLENOL) tablet 650 mg 01-31 05:09: 15 Yes 650mg 650 mg, Oral, Q6HPRN, Starting on Sun01/31/23 at 0009, Until Discontinu ed, Routine, Pain (scale 1-3) [facility] levoFLOXaci n in D5W (LEVAQUIN) 750 mg/150 mL Piggyback 750 mg 01-31 01:45: 00 01-31 03:42 :00 No 750mg 750 mg, IV Piggyback, ONCE, 1 dose, On Sun01/30/23 at 2045, Administer over 90 Minutes, 150 mL
Reas on for Anti-Infec tive: Documented Infection< br>Documen eulalio Infection Site: Respirator y
Durat ion of Therapy: [address] [facility] aspirin tablet 325 mg 01-31 00:30: 00 01-30 23:44 :00 No 325mg 325 mg, Oral, ONCE, 1 dose, On Sun01/30/23 at 1930, Routine [facility] nitroglycer in (NITROL) 2 % ointment 0.5 Inch 01-30 23:45: 00 01-31 00:05 :00 No .5[in_u s] 0.5 Inch, Transderma l (Apply To Skin), ONCE, 1 dose, On Sun01/30/23 at 1845, JUAN [facility] furosemide (LASIX) injection 40 mg 01-30 23:45: 00 01-30 23:45 :00 No 40mg 40 mg, IV Push, ONCE, 1 dose, On Sun01/30/23 at 1845, JUAN [facility] hydroCHLORO thiazide 25 MG oral Tablet 12-06 00:00: 00 Yes [id number] 25mg Take 1 tablet (25 mg total) by mouth daily Sonia cheatham Metformin HCl ER 500 MG oral TABLET SR 24 HR 12-06 00:00: 00 Yes [id number] 3 1000mg Take 2 tablets (1,000 mg total) by mouth 2 times daily Sonia cheatham glipiZIDE 10 MG oral Tablet 12-06 00:00: 00 Yes [id number] 3 10mg Take 1 tablet (10 mg total) by mouth in the morning and 1 tablet (10 mg total) in the evening. Take before meals. Sonia cheatham Losartan Potassium (COZAAR) 100 MG oral Tablet 12-06 00:00: 00 Yes [id number] 100mg Take 1 tablet (100 mg total) by mouth daily Sonia cheatham Amlodipine Besylate 10 MG oral Tablet 12-06 00:00: 00 Yes [id number] 10mg Take 1 tablet (10 mg total) by mouth daily Sonia cheatham Atorvastati n Calcium 20 MG oral Tablet 12-06 00:00: 00 Yes [id number] 3 20mg Take 1 tablet (20 mg [...] TAKE 1 TABLET BY MOUTH ONCE DAILY 8- 00:00: 00 No 10 TAKE 1 TABLET [...] 00 No amlodipine 10 mg tablet 0 12-17 00:00: 00 No 1mg atorvastati n 10 mg tablet 0 - 00:00: 00 No 1mg Januvia 100 mg tablet 0 - 00:00: 00 No 1mg metformin 1,000 mg tablet 0 - 00:00: 00 No 1mg amlodipine 10 mg tablet 0 -12 00:00: 00 No 1mg atorvastati n 10 mg tablet 0 - 00:00: 00 No 1mg Januvia 100 mg tablet 0 -12 00:00: 00 No 1mg metformin 1,000 mg tablet 2021-0 -12 00:00: 00 No 1mg Sitagliptin Phosphate (Januvia) 100 MG oral Tablet 2022-0 3-12 00:00: 00 Yes 1mg 1 mg Sonia Seybold - Externa l Blood Glucose Monitoring Suppl does not apply Kit 2021-0 3-12 00:00: 00 11-16 00:00 :00 No [...] 0- 00:00: 00 08-09 04:59 :00 No [id number] 10mg Take 1 tablet by mouth daily for [address] [facility] aspirin 81 mg chewable tablet 2020-10 0- 00:00: 00 08-09 04:59 :00 No [id number] 81mg Take 1 tablet by mouth daily for [address] [facility] lisinopriL 40 mg tablet 2020-10 0- 00:00: 00 08-09 04:59 :00 No [id number] 40mg Take 1 tablet by mouth daily for [address] [facility] amLODIPine (NORVASC) tablet 10 mg 2020-10 14:00: 00 Yes 10mg 10 mg, Oral, DAILY, First dose on Sun07/08/21 at 0900, Until Discontinu ed, Routine [facility] Blood-Gluco se Meter (RELION ALL-IN-ONE METER) Kit 2020-10 00:00: 00 Yes [id number] Use as directed [facility] Insulin Union, Disposable, (RELION NEEDLES) 31 gauge x 1/4" Ndle 2020-10 00:00: 00 Yes [id number] Use as directed [facility] atorvastati n 40 mg tablet 2020-10 00:00: 00 08-08 04:59 :00 No [id number] 40mg Take 1 tablet by mouth at bedtime for [address] [facility] glipiZIDE 10 mg tablet 2020-10 00:00: 00 08-08 04:59 :00 No [id number] 10mg Take 1 tablet by mouth 2 (two) times daily before breakfast and dinner for [address] [facility] insulin NPH and regular human 70-30 100 unit/mL (70-30) injection 2020-10 00:00: 00 08-08 04:59 :00 No [id number] 13U inject 13 Units under the skin every morning and evening for [address] [facility] metFORMIN 500 mg tablet 2020-10 00:00: 00 08-08 04:59 :00 No [id number] 500mg Take 1 tablet by mouth 2 (two) times daily with meals for [address] [facility] lactobacill us acidophilus 2020-10 00:00: 00 07-19 04:59 :00 No [id number] .5mg Take 1 tablet by mouth 2 (two) times daily for [address] [facility] amoxicillin 500 mg tablet 2020-10 00:00: 00 07-16 04:59 :00 No [id number] 500mg Take 1 tablet by mouth 2 (two) times daily for [address] [facility] HYDROcodone -acetaminop hen 5-325 mg tablet 2020-10 00:00: 00 07-14 04:59 :00 No [id number] 1{tbl} Take 1 tablet by mouth every 6 (six) hours as needed for Pain (scale 7-10) for up to 5 days. Indication s: acute pain [facility] lisinopriL (PRINIVIL,Z ESTRIL) tablet 40 mg 07-07 14:00: 00 Yes 40mg 40 mg, Oral, DAILY, First dose (after last modificati on) on Thuy 07/07/21 at 0900, Until Discontinu ed, Routine [facility] lactated ringers IV infusion 1,000 mL 07-07 13:45: 00 Yes 1000mL at 50 mL/hr, 1,000 mL, IV Infusion, CONTINUOUS , Starting on Thuy 07/07/21 at 0845, Until Discontinu ed, Routine, PACU [facility] HYDROmorphO ne (DILAUDID) injection 0.2 mg 07-07 13:35: 49 07-07 14:34 :40 No .2mg 0.2 mg, Slow IV Push, Q5MIN PRN, 10 doses, Starting on Thuy 07/07/21 at 0835, Until Thuy 07/07/21 at 0934, Routine, Pain (scale 7-10), PACU
Us e approved by (Faculty): PACU USE -ANESTHESI A SERVICE-HY DROMORPHON E INJECTIONS [facility] bupivacaine (preserv free) (SENSORCAIN E MPF) 0.25 % (2.5 mg/mL) 5 mL, lidocaine 1% (PF) (XYLOCAINE) 5 mL 07-07 13:14: 00 07-07 14:34 :40 No PRN, Starting on Thuy 07/07/21 at 0814, Intra-op [facility] benzocaine- menthoL (CEPACOL SORE THROAT (ANA LILIA-MEN)) lozenge 1 Lozenge 07-07 00:29: 57 Yes 1{lozen ge} 1 Lozenge, Oral, Q4HPRN, Starting on Sun07/06/21 at 1929, Until Discontinu ed, Routine, cough/sore throat [facility] insulin NPH and regular human 70-30 (HUMULIN 70-30 U-100 INSULIN) 100 unit/mL (70-30) injection 13 Units 07-06 22:00: 00 Yes 13U 13 Units, Subcutaneo us, QAM+PM, First dose on Sun07/06/21 at 1700, Until Discontinu ed, Routine [facility] lisinopriL (PRINIVIL,Z ESTRIL) tablet 20 mg 07-06 18:30: 00 07-06 18:54 :00 No 20mg 20 mg, Oral, ONCE NOW, 1 dose, On Sun07/06/21 at 1330, Routine [facility] No known medications 07-06 07:41: [address] [facility] lactated ringers IV infusion 1,000 mL 07-06 00:15: 00 07-06 13:29 :01 No 1000mL at 100 mL/hr, 1,000 mL, IV Infusion, CONTINUOUS , Starting on Sun07/05/21 at 1915, Until Sun07/06/21 at 0829, Routine, PACU [facility] sodium chloride 0.9 % irrigation solution 07-06 00:09: 00 07-06 00:34 :57 No PRN, Starting on Sun07/05/21 at 1909, Until Sun07/05/21 at 1934, Intra-op [facility] bupivacaine (preserv free) 0.5% (SENSORCAIN E MPF) 0.5 % (5 mg/mL) injection 07-06 00:07: 00 07-06 00:34 :57 No PRN, Starting on Sun07/05/21 at 1907, Until Sun07/05/21 at 1934, Routine, Intra-op [facility] lidocaine 1% (XYLOCAINE) 10 mg/mL (1 %) injection 07-05 23:22: 00 07-06 00:34 :57 No PRN, Starting on Sun07/05/21 at 1822, Until Sun07/05/21 at 1934, Routine, Intra-op [facility] gadoteridol (PROHANCE-2 0 mL) injection 19.2 mL 07-05 14:45: 00 07-05 14:45 :00 No [id number] .2mL/kg 19.2 mL (0.2 mL/kg ?96 kg), Intravenou s, ONCE, 1 dose, On Sun07/05/21 at 0945, Routine [facility] vancomycin 1500 mg in NS 500 mL IV Piggyback RTU 1,500 mg 07-05 05:00: 00 Yes 1500mg 1,500 mg, IV Infusion, Q12H ABX, First dose on Sun07/05/21 at 0000, Until Discontinu ed, Administer over 90 Minutes
Reason for Anti-Infec tive: Documented Infection< br>Documen eulalio Infection Site: Wound
D uration of Therapy: [address] [facility] metroNIDAZO LE (FLAGYL) tablet 500 mg 07-05 03:00: 00 Yes 500mg 500 mg, Oral, Q8H, First dose on Sun07/04/21 at 2200, Until Discontinu ed, Routine
Reason for Anti-Infec tive: Documented Infection< br>Documen eulalio Infection Site: Skin / Soft Tissue
Duration of Therapy: [address] [facility] benzonatate (TESSALON PERLES) capsule 100 mg 07-05 01:20: 41 Yes 100mg 100 mg, Oral, TIDPRN, Starting on Sun07/04/21 at 2020, Until Discontinu ed, Routine, Cough [facility] HYDROcodone -acetaminop hen (NORCO) 10-325 mg tablet 1 tablet 07-05 01:20: 21 Yes 1{tbl} 1 tablet, Oral, Q6HPRN, Starting on Sun07/04/21 at 2020, Until Discontinu ed, Routine, Pain (scale 7-10) [facility] HYDROcodone -acetaminop hen (NORCO 5) 5-325 mg tablet 1 tablet 07-05 01:20: 07 Yes 1{tbl} 1 tablet, Oral, Q6HPRN, Starting on Sun07/04/21 at 2020, Until Discontinu ed, Routine, Pain (scale 4-6) [facility] lactobacill us acidophilus tablet 0.5 mg 07-05 01:00: 00 Yes .5mg 0.5 mg, Oral, BID, First dose on Sun07/04/21 at 2000, Until Discontinu ed, Routine [facility] ceFEPIme (MAXIPIME) 1,000 mg in NaCl 0.9% (NS) 50 mL MINI-BAG 07-04 21:30: 00 Yes 1000mg 1,000 mg, IV Piggyback, Q8H ABX, First dose on Sun07/04/21 at 1630, Until Discontinu ed, Administer over 30 Minutes, 50 mL
Reas on for Anti-Infec tive: Documented Infection< br>Documen eulalio Infection Site: Skin / Soft Tissue
Duration of Therapy: [address] [facility] atorvastati n (LIPITOR) tablet 40 mg 07-04 02:00: 00 Yes 40mg 40 mg, Oral, QHS, First dose on Sun07/03/21 at 2100, Until Discontinu ed, Routine [facility] vancomycin (VANCOCIN) 1,000 mg in NaCl [...] Wound
D uration of Therapy: [address] [facility] iopamidol (ISOVUE 370-500 mL) injection 100 mL 07-03 16:00: 00 07-03 14:35 :00 No [id number] 100mL 100 mL, Intravenou s, ONCE, 1 dose, On Sun07/03/21 at 1100, Routine [facility] magnesium sulfate in water 2 gram/50 mL (4 %) infusion 2 g 07-03 14:30: 00 07-03 15:41 :00 No 2g 2 g, IV Piggyback, ONCE, 1 dose, On Sun07/03/21 at 0930, Routine [facility] piperacilli n-tazobacta m (ZOSYN) 3.375 g [...]
D uration of Therapy: Other (see Comments) [facility] aspirin chewable tablet 81 mg 07-03 14:00: 00 Yes 81mg 81 mg, Oral, DAILY, First dose on Sun07/03/21 at 0900, Until Discontinu ed, [facility]ox[facility] (LOVENOX) injection 40 mg 07-03 14:00: 00 Yes 40mg 40 mg, Subcutaneo us, DAILY, First dose on Sun07/03/21 at 0900, Until Discontinu ed, [facility] NaCl 0.9% (NS) IV infusion 1,000 mL 07-03 13:15: 00 Yes 1000mL at 50 mL/hr, IV Infusion, CONTINUOUS , Starting on Sun07/03/21 at 0815, Until Discontinu ed, [facility] docusate (COLACE) capsule 100 mg 07-03 13:00: 00 Yes 100mg 100 mg, Oral, BID, First dose on 07/03/21 at 0800, Until Discontinu ed, Routine [facility] lisinopriL (PRINIVIL,Z ESTRIL) tablet 20 mg 07-03 13:00: 00 07-06 17:22 :08 No 20mg 20 mg, Oral, BID, First dose on 07/03/21 at 0800, Until Discontinu ed, Routine [facility] glipiZIDE (GLUCOTROL) tablet 10 mg 07-03 12:30: 00 Yes 10mg 10 mg, Oral, BIDAC, First dose on 07/03/21 at 0730, Until Discontinu ed, Routine [facility] insulin NPH and regular human 70-30 (HUMULIN 70-30 U-100 INSULIN) 100 unit/mL (70-30) injection 10 Units 07-03 12:30: 00 07-04 13:29 :20 No 10U 10 Units, Subcutaneo us, BIDAC, First dose on 07/03/21 at 0730, Until Discontinu ed, Routine [facility] magnesium oxide (MAG-OX 400) tablet 400 mg 07-03 12:15: 00 Yes 400mg 400 mg, Oral, BID, First dose on 07/03/21 at 0715, Until Discontinu ed, Routine [facility] Sliding Scale Insulin - Lispro (HumaLOG) + Fsbg Testing 07-03 08:45: 00 Yes Subcutaneo us, TID MEALS, First dose on Sun07/03/21 at 0345, Until Discontinu ed, Routine [facility] ondansetron (ZOFRAN (PF)) injection 4 mg 07-03 08:30: 37 Yes 4mg 4 mg, Slow IV Push, Q6HPRN, Starting on 07/03/21 at 0330, Until Discontinu ed, Routine, Nausea and Vomiting (N/V) [facility] piperacilli n-tazobacta m (ZOSYN) 3.375 g in NaCl 0.9% (NS) 100 mL MINI-BAG 07-03 08:30: 00 07-03 08:16 :00 No 3.375g 3.375 g, IV Piggyback, ONCE, 1 dose, On Sun07/03/21 at 0330, Administer over 30 Minutes, 100 mL
Reas on for Anti-Infec tive: Documented Infection< br>Documen eulalio Infection Site: Wound
D uration of Therapy: Other (see Comments) [facility] glucagon (GLUCAGEN DIAGNOSTIC KIT) injection 1 mg 07-03 08:29: 07 Yes 1mg 1 mg, Intramuscu lar, PRN, Starting on Sun07/03/21 at 0329, Until Discontinu ed, JUAN, Blood Glucose < or = 70 mg/dL and patient is unable to swallow or has mental changes. [facility] dextrose 50 % in water (D50W) injection 25 mL 07-03 08:29: 07 Yes 25mL 25 mL, Slow IV Push, PRN, Starting on Sun07/03/21 at 0329, Until Discontinu ed, JUAN, Blood Glucose < or = 70 mg/dL and patient is unable to swallow or has mental status changes. [facility] labetaloL (NORMODYNE) injection 10 mg 07-03 08:00: 00 07-03 07:02 :00 No 10mg 10 mg, Slow IV Push, ONCE, 1 dose, On Sun07/03/21 at 0300, JUAN [facility] HYDROcodone -acetaminop hen (NORCO) 10-325 mg tablet 1 tablet 07-03 07:15: 00 07-03 06:13 :00 No 1{tbl} 1 tablet, Oral, ONCE, 1 dose, On Sun07/03/21 at 0215, Routine [facility] vancomycin 1500 mg in NS 500 mL IV Piggyback RTU 1,500 mg 07-03 07:00: 00 07-03 07:31 :00 No 15mg/kg 1,500 mg (rounded from 1,633.5 mg = 15 mg/kg ?108.9 kg), IV Piggyback, ONCE, 1 dose, On 07/03/21 at 0200, Administer over 90 Minutes
Reason for Anti-Infec tive: Documented Infection< br>Docu mented Infection Site: Wound
D uration of Therapy: [address] [facility] NaCl 0.9% (NS) bolus infusion 1,000 mL 07-03 06:00: 00 07-03 07:55 :00 No 1000mL at 999 mL/hr, 1,000 mL, IV Infusion, ONCE, 1 dose, On 07/03/21 at 0100, STAT [facility] Novolin R Regular U-100 Insulin 100 unit/mL [...] Pulse oximetry 2024-01-30 16:33:00 100 /min Sonia Jacobybo ld - External Systolic blood pressure 2024-01-02 [...] Pulse oximetry 2024-01-02 16:48:00 95 /min Sonia Jacobybo ld - External Systolic blood pressure 2023-11-30 [...] Systolic blood pressure 2023-02-09 16:14:00 113 mm[Hg] [facility] Diastolic blood pressure 2023-02-09 16:14:00 57 mm[Hg] [facility] Heart rate 2023-02-09 16:14:00 66 /min [facility] Body temperature 2023-02-09 16:14:00 36.17 Rhonda [facility] Respiratory rate 2023-02-09 16:14:00 18 /min [facility] Oxygen saturation in Arterial blood by Pulse oximetry 2023-02-09 16:14:00 93 /min [facility] Body weight 2023-02-03 15:03:[address] [facility] BMI 2023-02-03 15:03:00 34.64 kg/m2 [facility] Body height 2023-01-31 04:48:[address] [facility] Body height 2022-12-06 20:48:00 170.2 cm Lorenza ey Seybold - External Systolic blood pressure 2022-12-06 20:20:00 154 mm[Hg] Sonia Seybo ld - External Diastolic blood pressure 2022-12-06 20:20:00 90 mm[Hg] Sonia Jacobybo ld - External Heart rate 2022-12-06 20:20:00 92 /min Kel y Seybold - External Body temperature 2022-12-06 [...] Systolic blood pressure 2021-07-08 12:33:00 181 mm[Hg] [facility] Diastolic blood pressure 2021-07-08 12:33:00 86 mm[Hg] [facility] Heart rate 2021-07-08 12:33:00 79 /min [facility] Body temperature 2021-07-08 12:33:00 36.28 Rhonda [facility] Respiratory rate 2021-07-08 12:33:00 18 /min [facility] Oxygen saturation in Arterial blood by Pulse oximetry 2021-07-08 12:33:00 95 /min [facility] Body weight 2021-07-08 08:12:[address] [facility] BMI 2021-07-08 08:12:00 35.24 kg/m2 [facility] Body height 2021-07-06 12:41:[address] [facility] Oxygen saturation in Arterial blood by Pulse oximetry 2021-07-07 14:15:00 91 /min [facility] Systolic blood pressure 2021-07-07 14:15:00 142 mm[Hg] [facility] Diastolic blood pressure 2021-07-07 14:15:00 74 mm[Hg] [facility] Heart rate 2021-07-07 14:15:00 75 /[facility] Respiratory rate 2021-07-07 14:15:00 18 /min [facility] Body temperature 2021-07-07 13:30:00 36.11 Rhonda [facility] Body weight 2021-07-07 09:26:[address] [facility] BMI 2021-07-07 09:26:00 35.24 kg/m2 [facility] Body height 2021-07-06 12:41:[address] [facility] Systolic blood pressure 2021-07-05 20:29:00 177 mm[Hg] [facility] Diastolic blood pressure 2021-07-05 20:29:00 83 mm[Hg] [facility] Heart rate 2021-07-05 20:29:00 98 /min [facility] Body temperature 2021-07-05 20:29:00 37.22 Rhnoda [facility] Oxygen saturation in Arterial blood by Pulse oximetry 2021-07-05 20:29:00 98 /min [facility] Respiratory rate 2021-07-05 09:46:00 20 /min [facility] Body weight 2021-07-05 09:46:[address] [facility] BMI 2021-07-05 09:46:00 34.18 kg/m2 [facility] Body height 2021-07-04 13:04:[address] [facility] BP Systolic 2022-09-09 11:01:00 206 mm[Hg] [...] POCT GLUCOSE (AUTOMATED) 2023-02-09 17:00:00 Thompson Walker [facility] VERIFYNOW ASPIRIN TEST 2023-02-09 14:40:00 Hamilton Orozco [facility] POCT GLUCOSE (AUTOMATED) 2023-02-09 12:41:00 [facility] 2023-02-09 10:08:[address] [facility] MAGNESIUM 2023-02-09 10:08:[address] [facility] BASIC METABOLIC PANEL (NA, K, CL, CO2, GLUCOSE, BUN, CREATININE, CA) 2023-02-09 10:08:00 Lloyd [facility] CBC WITH DIFF 2023-02-09 10:08[facility] 2023-02-09 10:08:00 Vale Desai [facility] ACTIVATED PARTIAL THRMPLAS TAMI 2023-02-09 10:08:00 Lloyd [facility] POCT GLUCOSE (AUTOMATED) 2023-02-09 01:26:00 Thompson Walker [facility] POCT GLUCOSE (AUTOMATED) 2023-02-08 22:00:00 [facility] VERIFYNOW ASPIRIN TEST 2023-02-08 21:37:00 Hamilton Orozco [facility] POCT GLUCOSE (AUTOMATED) 2023-02-08 18:15:00 Thompson Walker [facility] POCT GLUCOSE (AUTOMATED) 2023-02-08 13:22:00 [facility] PHOSPHORUS 2023-02-08 10:05:[address] [facility] MAGNESIUM 2023-02-08 10:05:00 [facility]OLIC PAN[facility] (NA, K, CL, CO2, GLUCOSE, BUN, CREATININE, CA) 2023-02-08 10:05:00 Rudolph [facility] CBC WITH DIFF 2023-02-08 10:05:[address] [facility] POCT GLUCOSE (AUTOMATED) 2023-02-08 01:10:00 Thompson Walker [facility] POCT GLUCOSE (AUTOMATED) 2023-02-07 23:01:00 [facility] POCT GLUCOSE (AUTOMATED) 2023-02-07 13:43:00 Denise Fat [facility] HB ECG ROUTINE & RHYTHM STRIP 2023-02-07 13:36:00 Yadiel Rogers [facility] MAGNESIUM 2023-02-07 09:22:00 Shawn Gaviria [facility] BASIC METABOLIC PANEL (NA, K, CL, CO2, GLUCOSE, BUN, CREATININE, CA) 2023-02-07 09:22:00 Rudolph [facility] CBC WITH DIFF 2023-02-07 09:22:[address] [facility] POCT GLUCOSE (AUTOMATED) 2023-02-07 01:33:00 [facility] POCT GLUCOSE (AUTOMATED) 2023-02-06 21:34:00 [facility] POCT GLUCOSE (AUTOMATED) 2023-02-06 16:47:00 [facility] HB ECG ROUTINE & RHYTHM STRIP 2023-02-06 13:01:37 Ken [facility] POCT GLUCOSE (AUTOMATED) 2023-02-06 12:44:00 [facility] LUPUS ANTICOAGULANT REFLEXIVE PANEL 2023-02-06 11:01:00 Gianluca Araujo [facility] HEPATITIS B SURFACE ANTIBODY 2023-02-06 11:00:00 Rudolph [facility] HEPATITIS B SURFACE ANTIGEN 2023-02-06 11:00:00 Rudolph [facility] HBC ANTIBODY (IGM & IGG) 2023-02-06 11:00:00 Ann Gaviria [facility] ANTICARDIOLIPIN ANTIBODIES 2023-02-06 11:00:00 Ayaka Gaviria [facility] ANTI-B2 GLYCOPROTEIN I AB 2023-02-06 11:00:00 Jersey Gaviria [facility] HEPATITIS C VIRUS (HCV) BY QUANTITATIVE NAAT 2023-02-06 11:00:00 Rudolph [facility] ANTIPHOSPHOLIPID ANTIBODY EVALUATION-SST 2023-02-06 11:00:00 Shawn Gaviria [facility] MAGNESIUM 2023-02-06 10:59:00 Shawn Gaviria [facility] BASIC METABOLIC PANEL (NA, K, CL, CO2, GLUCOSE, BUN, CREATININE, CA) 2023-02-06 10:59:00 Rudolph [facility] CBC WITH DIFF 2023-02-06 10:59:[address] [facility] POCT GLUCOSE (AUTOMATED) 2023-02-06 01:30:00 Thompson Walker [facility] POCT GLUCOSE (AUTOMATED) 2023-02-05 21:14:00 Thompson Walker [facility] NM MYOCARDIUM PERFUSION STRESS AND REST 2023-02-05 20:29:00 Denise [facility] POCT GLUCOSE (AUTOMATED) 2023-02-05 16:26:00 [facility] RENAL ARTERY DUPLEX - BY VASCULAR LAB 2023-02-05 15:53:21 Denise [facility] UPPER EXTREMITY ARTERIAL DUPLEX BILATERAL - BY VASCULAR LAB 2023-02-05 15:53:16 Denise [facility] HB ECG ROUTINE & RHYTHM STRIP 2023-02-05 13:35:02 Yadiel Rogers [facility] POCT GLUCOSE (AUTOMATED) 2023-02-05 13:13:00 Thompson Walker lisa [facility] MAGNESIUM 2023-02-05 09:51:00 Ethan Lau [facility] BASIC METABOLIC PANEL (NA, K, CL, CO2, GLUCOSE, BUN, CREATININE, CA) 2023-02-05 09:51:00 Ethan Lau [facility] POCT GLUCOSE (AUTOMATED) 2023-02-05 02:01:00 Thompson Walker [facility] POCT GLUCOSE (AUTOMATED) 2023-02-04 21:50:00 [facility] POCT GLUCOSE (AUTOMATED) 2023-02-04 17:08:00 [facility] HB ECG ROUTINE & RHYTHM STRIP 2023-02-04 13:43:37 Yadiel Rogers [facility] POCT GLUCOSE (AUTOMATED) 2023-02-04 12:42:00 Walker, Fat [facility] MAGNESIUM 2023-02-04 09:41:00 Deborah Donahue [facility] BASIC METABOLIC PANEL (NA, K, CL, CO2, GLUCOSE, BUN, CREATININE, CA) 2023-02-04 09:41:00 Deborah Donahue [facility] CBC WITH DIFF 2023-02-04 09:41:00 Deborah Donahue [facility] POCT GLUCOSE (AUTOMATED) 2023-02-04 01:34:00 Thompson Walker [facility] POCT GLUCOSE (AUTOMATED) 2023-02-03 22:23:00 Thompson Walker lisa [facility] ALDOSTERONE, SERUM 2023-02-03 21:50:00 Jaz Walker [facility] CORTISOL AM 2023-02-03 21:49:00 Jaz Walker [facility] POCT GLUCOSE (AUTOMATED) 2023-02-03 16:49:00 Thompson Walker [facility] POCT GLUCOSE (AUTOMATED) 2023-02-03 13:19:00 Thompson Walker lisa [facility] ELECTROPHORESIS, SERUM 2023-02-03 10:05:00 Libra Landeros [facility] MAGNESIUM 2023-02-03 10:04:00 Libra Landeros [facility] BASIC METABOLIC PANEL (NA, K, CL, CO2, GLUCOSE, BUN, CREATININE, CA) 2023-02-03 10:04:00 Libra Landeros [facility] CBC WITHOUT DIFF 2023-02-03 10:04:[address] [facility] ANTI-NUCLEAR ANTIBODY SCREEN 2023-02-03 10:04:00 Ethan Lau [facility] ANTI-NUCLEAR ANTIBODY TITER 2023-02-03 10:04:00 Ethan Lau [facility] IMMUNOFIXATION, SERUM 2023-02-03 10:04:00 Ethan Lau [facility] ANTI-NUCLEAR ANTIBODY-PATHOLOGIST INTERPRETATION 2023-02-03 10:04:00 Ethan Lau [facility] POCT GLUCOSE (AUTOMATED) 2023-02-03 02:15:00 Thompson Walker [facility] POCT GLUCOSE (AUTOMATED) 2023-02-02 22:14:00 Denise Fat lisa [facility] POCT GLUCOSE (AUTOMATED) 2023-02-02 17:14:00 Thompson Walker [facility] IMMUNOFIXATION, URINE FOR PANEL 2023-02-02 16:11:00 Ethan Lau [facility] ELECTROPHORESIS, SERUM 2023-02-02 16:11:00 Libra Landeros [facility] IMMUNOFIXATION, SERUM 2023-02-02 16:11:00 Ethan Lau [facility] HB ECG ROUTINE & RHYTHM STRIP 2023-02-02 12:48:22 Yadiel Rogers [facility] POCT GLUCOSE (AUTOMATED) 2023-02-02 12:36:00 Thompson Walker lisa [facility] MAGNESIUM 2023-02-02 09:00:00 Ethan Lau [facility] BASIC METABOLIC PANEL (NA, K, CL, CO2, GLUCOSE, BUN, CREATININE, CA) 2023-02-02 09:00:00 Ethan Lau [facility] CBC WITHOUT DIFF 2023-02-02 09:00:[address] [facility] POCT GLUCOSE (AUTOMATED) 2023-02-02 01:14:00 Thompson Walker lisa [facility] POCT GLUCOSE (AUTOMATED) 2023-02-01 21:58:00 Thompson Walker [facility] TRANSTHORACIC ECHO (TTE) COMPLETE W/ CONTRAST 2023-02-01 16:57:00 Yaidel Rogers [facility] POCT GLUCOSE (AUTOMATED) 2023-02-01 16:20:00 Thompson Walker [facility] HB ECG ROUTINE & RHYTHM STRIP 2023-02-01 13:16:33 [facility] 2023-02-01 12:50:00 Thompson Walker [facility] MAGNESIUM 2023-02-01 10:42:[address] [facility] BASIC METABOLIC PANEL (NA, K, CL, CO2, GLUCOSE, BUN, CREATININE, CA) 2023-02-01 10:42:00 Libra Landeros [facility] CBC WITHOUT DIFF 2023-02-01 10:42:00 iLbra Landeros [facility] US RETROPERITONEAL LIMITED 2023-02-01 07:52:11 Yadiel Rogers [facility] MICROALBUMIN URINE 2023-02-01 05:17:00 Destin Barrett [facility] URINALYSIS 2023-02-01 05:17:00 Ethan Lua [facility] PROTEIN CREAT RATIO URINE RANDOM 2023-02-01 05:17:00 Ethan Lau [facility] UREA NITROGEN, URINE RANDOM 2023-02-01 05:17:00 Ethan Lau [facility] POCT GLUCOSE (AUTOMATED) 2023-02-01 01:48:00 Thompson Walker lisa [facility] POCT GLUCOSE (AUTOMATED) 2023-01-31 21:12:00 Thompson Walker lisa [facility] POCT GLUCOSE (AUTOMATED) 2023-01-31 16:41:00 Thompson Walker lisa [facility] HB ECG ROUTINE & RHYTHM STRIP 2023-01-31 12:57:41 Yadiel Rogers [facility] POCT GLUCOSE (AUTOMATED) 2023-01-31 12:54:00 Thompson Walker [facility] MAGNESIUM 2023-01-31 08:53:00 [facility] TROPONIN I 2023-01-31 08:53:00 [facility] THYROID STIMULATING HORMONE 2023-01-31 08:53:00 Deborah Donahue [facility] BASIC METABOLIC PANEL (NA, K, CL, CO2, GLUCOSE, BUN, CREATININE, CA) 2023-01-31 08:53:00 Yadiel Rogers [facility] LIPID PANEL ([id number])(TOTAL CHOLESTEROL, TRIGLYCERIDES, HDL) 2023-01-31 08:53:00 Ethan Lau [facility] CBC WITH DIFF 2023-01-31 08:53:[address] [facility] GLYCOSYLATED HEMOGLOBIN (A1C) 2023-01-31 08:53:00 Ethan Lau [facility] XR CHEST 2 VW 2023-01-30 23:58:54 [facility] (ID NOW RAPID TESTING) 2023-01-30 23:36:00 Micah Novoa [facility] LAB ONLY COVID INTERPRETATION 2023-01-30 23:36:00 Micah Novoa [facility] PHOSPHORUS 2023-01-30 23:33:00 Yadiel Rogers [facility] FERRITIN SERUM 2023-01-30 23:33:00 Yadiel Rogers [facility] TROPONIN I 2023-01-30 23:33:00 Micah Novoa [facility] FREE T4 2023-01-30 23:33:00 Deborah Donahue [facility] COMP. METABOLIC PANEL ([id number]) 2023-01-30 23:33:00 Micah Novoa [facility] IRON PANEL 2023-01-30 23:33:00 [facility] CBC WITH DIFF 2023-01-30 23:33:00 Micah Novoa [facility] N-TERMINAL PRO-BNP 2023-01-30 23:33:00 Micah Novoa [facility] EKG-12 LEAD 2023-01-30 23:15:54 Gianluca Araujo [facility] NOTICE OF PRIVACY PRACTICES 2023-01-30 23:05:03 Doctor Unassigned, [facility] [facility] CONSENT/REFUSAL FOR DIAGNOSIS AND TREATMENT 2023-01-30 23:04:08 Doctor Unassigned, [facility] HOSPITAL ADMISSION 2023-01-30 05:01:00 Doctor Un assigned, [facility] Ekg W/ At Least 12 Leads W/ I r 2021-12-17 00:00:00 POCT GLUCOSE (AUTOMATED) 2021-07-08 16:44:00 Winnie Villatoro [facility] POCT GLUCOSE (AUTOMATED) 2021-07-08 16:44:00 Winnie Villatoro [facility] POCT GLUCOSE (AUTOMATED) 2021-07-08 12:35:00 Winnie Villatoro [facility] POCT GLUCOSE (AUTOMATED) 2021-07-08 12:35:00 Winnie Villatoro [facility] POCT GLUCOSE (AUTOMATED) 2021-07-07 22:13:00 Winnei Villatoro [facility] POCT GLUCOSE (AUTOMATED) 2021-07-07 22:13:00 Winnie Villatoro [facility] POCT GLUCOSE (AUTOMATED) 2021-07-07 16:41:00 Winnie Villatoro [facility] POCT GLUCOSE (AUTOMATED) 2021-07-07 16:41:00 Winnie Villatoro [facility] POCT GLUCOSE (AUTOMATED) 2021-07-07 14:52:00 Winnie Villatoro [facility] POCT GLUCOSE (AUTOMATED) 2021-07-07 14:52:00 Winnie Villatoro [facility] CLOSURE SURGICAL WOUND LOWER EXTREMITY 2021-07-07 12:40:00 Nomi Robles [facility] CLOSURE SURGICAL WOUND LOWER EXTREMITY 2021-07-07 12:40:00 Nomi Robles [facility] POCT GLUCOSE (AUTOMATED) 2021-07-07 12:20:00 Gm De Los Santos [facility] POCT GLUCOSE (AUTOMATED) 2021-07-07 12:20:00 Gm De Los Santos [facility] BASIC METABOLIC PANEL (NA, K, CL, CO2, GLUCOSE, BUN, CREATININE, CA) 2021-07-07 10:27:00 Madie Orozco [facility] CBC WITH DIFF 2021-07-07 10:27:00 Madie Orozco [facility] BASIC METABOLIC PANEL (NA, K, CL, CO2, GLUCOSE, BUN, CREATININE, CA) 2021-07-07 10:27:00 Madie Orozco [facility] CBC WITH DIFF 2021-07-07 10:27:00 Madie Orozco [facility] POCT GLUCOSE (AUTOMATED) 2021-07-07 05:05:00 Magali suly [facility] POCT GLUCOSE (AUTOMATED) 2021-07-07 05:05:00 Magali [facility] POCT GLUCOSE (AUTOMATED) 2021-07-06 21:32:00 Magali [facility] POCT GLUCOSE (AUTOMATED) 2021-07-06 21:32:00 Magali [facility] CBC WITH DIFF 2021-07-06 18:42:[address] [facility] CBC WITH DIFF 2021-07-06 18:42:[address] [facility] CBC WITH DIFF 2021-07-06 18:42:[address] [facility] POCT GLUCOSE (AUTOMATED) 2021-07-06 16:30:00 Magali suly [facility] POCT GLUCOSE (AUTOMATED) 2021-07-06 16:30:00 Magali [facility] POCT GLUCOSE (AUTOMATED) 2021-07-06 16:30:00 Magali [facility] VANCOMYCIN TROUGH 2021-07-06 15:35:00 Rebecca Lazo [facility] VANCOMYCIN TROUGH 2021-07-06 15:35:00 Rebecca Lazo [facility] VANCOMYCIN TROUGH 2021-07-06 15:35:00 Rebecca Lazo [facility] POCT GLUCOSE (AUTOMATED) 2021-07-06 12:37:00 Magali [facility] POCT GLUCOSE (AUTOMATED) 2021-07-06 12:37:00 Magali suly [facility] POCT GLUCOSE (AUTOMATED) 2021-07-06 12:37:00 Magali [facility] COMP. METABOLIC PANEL (93654) 2021-07-06 11:07:00 Magali [facility] COMP. METABOLIC PANEL (42881) 2021-07-06 11:07:00 Magali Adnan [facility] COMP. METABOLIC PANEL (39071) 2021-07-06 11:07:00 Gm De Los Santos [facility] SURGICAL PATHOLOGY EXAM 2021-07-05 23:42:00 Kayliepeggy Hector rashid Nation [facility] SURGICAL PATHOLOGY EXAM 2021-07-05 23:42:00 Travis Hector rashid Nation [facility] TOE AMPUTATION 2021-07-05 22:59:00 [facility] 2021-07-05 22:59:00 Travis [facility] POCT GLUCOSE (AUTOMATED) 2021-07-05 20:33:00 Magali [facility] POCT GLUCOSE (AUTOMATED) 2021-07-05 20:33:00 Magali [facility] POCT GLUCOSE (AUTOMATED) 2021-07-05 20:33:00 Magali [facility] POCT GLUCOSE (AUTOMATED) 2021-07-05 16:17:00 Magali [facility] POCT GLUCOSE (AUTOMATED) 2021-07-05 16:17:00 Magali [facility] POCT GLUCOSE (AUTOMATED) 2021-07-05 16:17:00 Magali [facility] MR FOOT RIGHT W WO CONTRAST 2021-07-05 14:37:[address] [facility] MR FOOT RIGHT W WO CONTRAST 2021-07-05 14:37:[address] [facility] MR FOOT RIGHT W WO CONTRAST 2021-07-05 14:37:38 Dianna Jt [facility] POCT GLUCOSE (AUTOMATED) 2021-07-05 12:12:00 Magali suly [facility] POCT GLUCOSE (AUTOMATED) 2021-07-05 12:12:00 Magali [facility] POCT GLUCOSE (AUTOMATED) 2021-07-05 12:12:00 Magali suly [facility] MAGNESIUM 2021-07-05 10:00:00 Gm De Los Santos [facility] COMP. METABOLIC PANEL (43053) 2021-07-05 10:00:00 Magali [facility] CBC WITH DIFF 2021-07-05 10:00:00 Gm De Los Santos [facility] N-TERMINAL PRO-BNP 2021-07-05 10:00:00 Magali [facility] MAGNESIUM 2021-07-05 10:00:00 Magali suly [facility] COMP. METABOLIC PANEL (29371) 2021-07-05 10:00:00 Magali [facility] CBC WITH DIFF 2021-07-05 10:00:00 [facility] N-TERMINAL PRO-BNP 2021-07-05 10:00:00 Magali [facility] MAGNESIUM 2021-07-05 10:00:00 Gm De Los Santos [facility] COMP. METABOLIC PANEL ([id number]) 2021-07-05 10:00:00 Magali [facility] CBC WITH DIFF 2021-07-05 10:00:00 [facility] N-TERMINAL PRO-BNP 2021-07-05 10:00:00 Magali [facility] POCT GLUCOSE (AUTOMATED) 2021-07-05 00:13:00 Magali [facility] POCT GLUCOSE (AUTOMATED) 2021-07-05 00:13:00 Magali [facility] POCT GLUCOSE (AUTOMATED) 2021-07-05 00:13:00 Magali [facility] POCT GLUCOSE (AUTOMATED) 2021-07-04 21:21:00 Magali [facility] POCT GLUCOSE (AUTOMATED) 2021-07-04 21:21:00 Magali [facility] POCT GLUCOSE (AUTOMATED) 2021-07-04 21:21:00 Magali [facility] WOUND CULTURE 2021-07-04 19:28:00 Jo-Ann [facility] WOUND CULTURE 2021-07-04 19:28:00 Jo-Ann King [facility] WOUND CULTURE 2021-07-04 19:28:00 Jo-Ann [facility] POCT GLUCOSE (AUTOMATED) 2021-07-04 16:26:00 Magali [facility] POCT GLUCOSE (AUTOMATED) 2021-07-04 16:26:00 Magali [facility] POCT GLUCOSE (AUTOMATED) 2021-07-04 16:26:00 Magali [facility] VANCOMYCIN TROUGH 2021-07-04 15:39:[address] [facility] VANCOMYCIN TROUGH 2021-07-04 15:39:00 [facility] V[facility]COM[facility]IN [facility] 2021-07-04 15:39:[address] [facility] POCT GLUCOSE (AUTOMATED) 2021-07-04 12:21:00 Magali [facility] POCT GLUCOSE (AUTOMATED) 2021-07-04 12:21:00 Magali [facility] POCT GLUCOSE (AUTOMATED) 2021-07-04 12:21:00 Magali [facility] PHOSPHORUS 2021-07-04 10:12:00 Magali suly [facility] MAGNESIUM 2021-07-04 10:12:00 Magali suly [facility] COMP. METABOLIC PANEL (22090) 2021-07-04 10:12:00 Magali [facility] CBC WITH DIFF 2021-07-04 10:12:00 Gm De [facility] N-TERMINAL PRO-BNP 2021-07-04 10:12:00 Magali [facility] PHOSPHORUS 2021-07-04 10:12:00 Magali suly [facility] MAGNESIUM 2021-07-04 10:12:00 Magali [facility] COMP. METABOLIC PANEL (22608) 2021-07-04 10:12:00 Magali suly [facility] CBC WITH DIFF 2021-07-04 10:12:00 Gm De Los Santos [facility] N-TERMINAL PRO-BNP 2021-07-04 10:12:00 Magali suly [facility] PHOSPHORUS 2021-07-04 10:12:00 Gm De Los Santos [facility] MAGNESIUM 2021-07-04 10:12:00 Gm De Los Santos [facility] COMP. METABOLIC PANEL ([id number]) 2021-07-04 10:12:00 Magali [facility] CBC WITH DIFF 2021-07-04 10:12:00 Gm De Los Santos [facility] N-TERMINAL PRO-BNP 2021-07-04 10:12:00 Magali [facility] POCT GLUCOSE (AUTOMATED) 2021-07-04 00:24:00 Magali [facility] POCT GLUCOSE (AUTOMATED) 2021-07-04 00:24:00 Magali [facility] POCT GLUCOSE (AUTOMATED) 2021-07-04 00:24:00 Magali [facility] POCT GLUCOSE (AUTOMATED) 2021-07-03 21:30:00 Magali [facility] POCT GLUCOSE (AUTOMATED) 2021-07-03 21:30:00 Magali [facility] POCT GLUCOSE (AUTOMATED) 2021-07-03 21:30:00 Magali [facility] POCT GLUCOSE (AUTOMATED) 2021-07-03 16:19:00 Magali [facility] POCT GLUCOSE (AUTOMATED) 2021-07-03 16:19:00 Magali [facility] POCT GLUCOSE (AUTOMATED) 2021-07-03 16:19:00 Magali [facility] VITAMIN B12, LEVEL 2021-07-03 14:59:00 Magali [facility] C-REACTIVE PROTEIN 2021-07-03 14:59:00 [facility] 2021-07-03 14:59:00 Gm De Los Santos [facility] VITAMIN B12, LEVEL 2021-07-03 14:59:00 [facility]OTEIN 2021-07-03 14:59:00 Gm De Los Santos [facility] VITAMIN D, 25-OH 2021-07-03 14:59:00 Gm De Los Santos [facility] VITAMIN B12, LEVEL 2021-07-03 14:59:00 [facility]OTEIN 2021-07-03 14:59:00 Magali [facility] VITAMIN D, 25-OH 2021-07-03 14:59:00 Gm De Los Santos [facility] IRON PANEL 2021-07-03 14:58:00 Gm De Los Santos [facility] PROCALCITONIN 2021-07-03 14:58:00 [facility] IRON PANEL 2021-07-03 14:58:00 Gm De Los Santos [facility] PROCALCITONIN 2021-07-03 14:58:00 Gm De Los Santos [facility] IRON PANEL 2021-07-03 14:58:00 Gm De Los Santos [facility] PROCALCITONIN 2021-07-03 14:58:00 Gm De Los Santos [facility] PROTHROMBIN TIME / INR 2021-07-03 14:57:00 Lasha De Los Santos [facility] PROTHROMBIN TIME / INR 2021-07-03 14:57:00 Lasha De Los Santos [facility] PROTHROMBIN TIME / INR 2021-07-03 14:57:00 Lasha De Los Santos [facility] CT FOOT RIGHT W CONTRAST 2021-07-03 14:46:22 Gm De Los Santos [facility] CT FOOT RIGHT W CONTRAST 2021-07-03 14:46:22 Magali [facility] FOOT RIGHT W CONTRAST 2021-07-03 14:46:22 Magali [facility] LOWER EXTREMITY ARTERIAL DUPLEX BILATERAL - BY VASCULAR LAB 2021-07-03 14:14:20 Magali [facility] LOWER EXTREMITY ARTERIAL DUPLEX BILATERAL - BY VASCULAR LAB 2021-07-03 14:14:20 Magali [facility] LOWER EXTREMITY ARTERIAL DUPLEX BILATERAL - BY VASCULAR LAB 2021-07-03 14:14:20 Magali [facility] DUPLEX VENOUS LEGS BILATERAL - BY VASCULAR LAB 2021-07-03 14:14:15 Magali [facility] DUPLEX VENOUS LEGS BILATERAL - BY VASCULAR LAB 2021-07-03 14:14:15 Magali [facility] DUPLEX VENOUS LEGS BILATERAL - BY VASCULAR LAB 2021-07-03 14:14:15 Magali [facility] POCT GLUCOSE (AUTOMATED) 2021-07-03 12:36:00 Magali [facility] POCT GLUCOSE (AUTOMATED) 2021-07-03 12:36:00 Magali [facility] POCT GLUCOSE (AUTOMATED) 2021-07-03 12:36:00 Magali [facility] URINALYSIS 2021-07-03 06:43:00 Wong Santo [facility] URINE CULTURE 2021-07-03 06:43:[address] [facility] URINALYSIS 2021-07-03 06:43:00 Wong Santo [facility] URINE CULTURE 2021-07-03 06:43:[address] [facility] URINALYSIS 2021-07-03 06:43:00 Wong Santo [facility] URINE CULTURE 2021-07-03 06:43:[address] [facility] LACTIC ACID WHOLE BLOOD 2021-07-03 06:15:00 Wong Santo [facility] LACTIC ACID WHOLE BLOOD 2021-07-03 06:15:00 Wnog Santo [facility] LACTIC ACID WHOLE BLOOD 2021-07-03 06:15:00 Wong Santo [facility] XR FOOT 3+ VW RIGHT 2021-07-03 06:08:43 Wong Santo [facility] XR FOOT 3+ VW RIGHT 2021-07-03 06:08:43 Wong Santo [facility] XR FOOT 3+ VW RIGHT 2021-07-03 06:08:43 Wong Santo [facility] PHOSPHORUS 2021-07-03 05:59:00 Gm De Los Santos [facility] CREATINE KINASE 2021-07-03 05:59:00 Gm De Los Santos [facility] URIC ACID 2021-07-03 05:59:00 Gm De Los Santos [facility] MAGNESIUM 2021-07-03 05:59:00 Gm De Los Santos [facility] FERRITIN SERUM 2021-07-03 05:59:[address] [facility] TROPONIN I 2021-07-03 05:59:00 Wong [facility] THYROID STIMULATING HORMONE 2021-07-03 05:59:00 Gm De Los Santos [facility] COMP. METABOLIC PANEL (03131) 2021-07-03 05:59:00 Wong Santo [facility] LIPID PANEL (61861)(TOTAL CHOLESTEROL, TRIGLYCERIDES, HDL) 2021-07-03 05:59:00 Gm De Los Santos [facility] SEDIMENTATION RATE 2021-07-03 05:59:00 Gm De Los Santos [facility] CBC WITH DIFF 2021-07-03 05:59:[address] [facility] GLYCOSYLATED HEMOGLOBIN (A1C) 2021-07-03 05:59:00 Gm De Los Santos [facility] N-TERMINAL PRO-BNP 2021-07-03 05:59:00 Magali [facility] PHOSPHORUS 2021-07-03 05:59:00 Gm De Los Santos [facility] CREATINE KINASE 2021-07-03 05:59:00 Gm De Los Santos [facility] URIC ACID 2021-07-03 05:59:00 Gm De Los Santos [facility] MAGNESIUM 2021-07-03 05:59:00 Magali [facility] FERRITIN SERUM 2021-07-03 05:59:00 Magali [facility] TROPONIN I 2021-07-03 05:59:00 Wong [facility] THYROID STIMULATING HORMONE 2021-07-03 05:59:00 Magali [facility] COMP. METABOLIC PANEL (38748) 2021-07-03 05:59:00 Wong Santo [facility] LIPID PANEL (71775)(TOTAL CHOLESTEROL, TRIGLYCERIDES, HDL) 2021-07-03 05:59:00 Magali [facility] SEDIMENTATION RATE 2021-07-03 05:59:00 Magali [facility] CBC WITH DIFF 2021-07-03 05:59:[address] [facility] GLYCOSYLATED HEMOGLOBIN (A1C) 2021-07-03 05:59:00 Magali [facility] N-TERMINAL PRO-BNP 2021-07-03 05:59:00 Magali [facility] PHOSPHORUS 2021-07-03 05:59:00 Gm De Los Santos [facility] CREATINE KINASE 2021-07-03 05:59:00 Gm De Los Santos [facility] URIC ACID 2021-07-03 05:59:00 Magali [facility] MAGNESIUM 2021-07-03 05:59:00 Magali [facility] FERRITIN SERUM 2021-07-03 05:59:[address] [facility] TROPONIN I 2021-07-03 05:59:00 Wong [facility] THYROID STIMULATING HORMONE 2021-07-03 05:59:00 Gm De Los Santos [facility] COMP. METABOLIC PANEL (33047) 2021-07-03 05:59:00 Wong Santo [facility] LIPID PANEL (38271)(TOTAL CHOLESTEROL, TRIGLYCERIDES, HDL) 2021-07-03 05:59:00 Magali [facility] SEDIMENTATION RATE 2021-07-03 05:59:00 Magali [facility] CBC WITH DIFF 2021-07-03 05:59:[address] [facility] GLYCOSYLATED HEMOGLOBIN (A1C) 2021-07-03 05:59:00 Magali [facility] N-TERMINAL PRO-BNP 2021-07-03 05:59:00 Magali [facility] BLOOD CULTURE SCREEN 2021-07-03 05:58:00 Wong Santo [facility] COVID-19 (ID NOW RAPID TESTING) 2021-07-03 05:58:00 Wong Santo [facility] LAB ONLY COVID INTERPRETATION 2021-07-03 05:58:00 Wong Santo [facility] BLOOD CULTURE SCREEN 2021-07-03 05:58:00 Wong Santo [facility] COVID-19 (ID NOW RAPID TESTING) 2021-07-03 05:58:00 Wong Santo [facility] LAB ONLY COVID INTERPRETATION 2021-07-03 05:58:00 Wong Santo [facility] BLOOD CULTURE SCREEN 2021-07-03 05:58:00 Wong Santo [facility] COVID-19 (ID NOW RAPID TESTING) 2021-07-03 05:58:00 Wong Santo [facility] LAB ONLY COVID INTERPRETATION 2021-07-03 05:58:00 Wong Santo [facility] EKG-12 LEAD 2021-07-03 05:40:45 MagaliGm [facility] EKG-12 LEAD 2021-07-03 05:40:45 Magali Lashasuly [facility] EKG-12 LEAD 2021-07-03 05:40:45 Gm De Los Santos [facility] NOTICE OF PRIVACY PRACTICES 2021-07-03 05:30:04 Doctor Unassigned, [facility] NOTICE OF PRIVACY PRACTICES 2021-07-03 05:30:04 Doctor Unassigned, [facility] NOTICE OF PRIVACY PRACTICES 2021-07-03 05:30:04 Doctor Unassigned, [facility] CONSENT/REFUSAL FOR DIAGNOSIS AND TREATMENT 2021-07-03 05:29:41 Doctor Unassigned, [facility] CONSENT/REFUSAL FOR DIAGNOSIS AND TREATMENT 2021-07-03 05:29:41 Doctor Unassigned, [facility] CONSENT/REFUSAL FOR DIAGNOSIS AND TREATMENT 2021-07-03 05:29:41 Doctor Unassigned, [facility] [id number] Ecg Routine Ecg W/least 12 Lds W/i r 2017-01-04 00:00:00 Plan of Care Planned Activity Planned Date Details Comments Source Goal Plan of Care Note [code = 51658-1] Goal Plan of Care Note [code = 96667-6] Goal Plan of Care Note [code = 56041-6] Goal Plan of Care Note [code = 04956-4] Goal Plan of Care Note [code = 12958-3] Goal Plan of Care Note [code = 12176-0] Goal Plan of Care Note [code = 75988-2] Goal Plan of Care Note [code = 22453-1] Goal Plan of Care Note [code = 54915-4] Goal Plan of Care Note [code = 10145-2] Goal Plan of Care Note [code = 53893-6] Goal Plan of Care Note [code = 48436-0] Goal Plan of Care Note [code = 88214-9] Goal Plan of Care Note [code = 74598-0] Goal Plan of Care Note [code = 40352-7] Goal Plan of Care Note [code = 45314-1] Goal Plan of Care Note [code = 64942-4] Goal Plan of Care Note [code = 47303-1] Goal Plan of Care Note [code = 74991-7] Goal Plan of Care Note [code = 35950-4] Goal Plan of Care Note [code = 64640-2] Goal Plan of Care Note [code = 51225-3] Goal Plan of Care Note [code = 74643-6] Goal Plan of Care Note [code = 33509-6] Goal Plan of Care Note [code = 25172-7] Goal Plan of Care Note [code = 70248-7] Goal Plan of Care Note [code = 63109-1] Goal Plan of Care Note [code = 08990-9] Goal Plan of Care Note [code = 10864-6] Goal Plan of Care Note [code = 61895-1] Goal Plan of Care Note [code = 81326-9] Goal Plan of Care Note [code = 58285-4] Goal Plan of Care Note [code = 15410-1] Goal Plan of Care Note [code = 79945-4] Encounters Start Date/Time End Date/Time Encounter Type Admission Type Attending [facility] Care Department Encounter ID Source 2024-08-19 08:30:00 2024-08-19 08:30:00 Outpatient MARQUES THOMAS [id number] [facility] 2024-06-10 00:00:00 2024-06-10 00:00:00 Outpatient MARQUES THOMAS [id number] [facility] 2024-06-06 00:00:00 2024-06-06 00:00:00 Outpatient [facility]TOV[facility] [id number] [facility]05 00:00:00 2024-06-05 00:00:00 [id number] [facility] 00:00:00 2024-06-05 00:00:00 Outpatient [facility] THOM[facility] [id number] [facility] 2024-05-28 00:00:00 2024-05-28 00:00:00 Outpatient MARQUES THOMAS [id number] [facility] 2024-05-28 00:00:00 2024-05-28 00:00:00 Outpatient MALACHI MICHELLE [facility] [id number] [facility] 2024-05-20 00:00:00 2024-05-20 00:00:00 Outpatient PREMARQUES ARREDONDO [facility] [id number] [facility] 2024-05-19 14:30:00 2024-05-19 14:30:00 Outpatient GUILLE SONIA ALCALA [id number] [facility] 2024-05-19 13:45:00 2024-05-19 13:45:00 Outpatient MALACHI MICHELLE [facility] [id number] [facility] 2024-05-12 14:00:00 2024-05-12 14:00:00 Outpatient PREZAMARQUES Arthur SONIA ALCALA [id number] [facility] 2024-05-05 15:15:00 2024-05-05 15:15:00 Outpatient PREZASMARQUES [facility]CAL[facility] [id number] [facility] 2024-04-17 14:10:00 2024-04-17 14:10:00 Outpatient APRILBEATA [facility]ONIA [facility]CAL[facility] [id number] [facility] 2024-03-20 15:15:00 2024-03-20 15:15:00 Outpatient PREZASMARQUES [facility]ON[facility] ALCAL[facility] [id number] [facility] 2024-03-19 09:30:00 2024-03-19 09:30:00 Outpatient CARLEE CARRILLO [id number] [facility] 2024-03-17 08:00:00 2024-03-17 08:00:00 Outpatient QUINN GAVIRIA [id number] [facility] 2024-03-17 00:00:00 2024-03-17 00:00:00 Outpatient JOAN STACY [id number] [facility] 2024-03-11 00:00:00 2024-03-11 00:00:00 Outpatient JENNIFER PRICE [id number] [facility] 2024-03-10 14:25:00 2024-03-10 14:25:00 Outpatient BEATA CHEN SONIA SONIA [id number] [facility] 2024-02-28 07:30:00 2024-02-28 07:30:00 Outpatient SONIA ALCALA [id number] [facility] 2024-02-22 00:00:00 2024-02-22 00:00:00 Outpatient MARQUES THOMAS SONIA [id number] [facility] 2024-02-21 00:00:00 2024-02-21 00:00:00 Outpatient MARQUES THOMAS SONIA SONIA [id number] [facility] 2024-02-20 08:15:00 2024-02-20 08:15:00 Outpatient SONIA ALCALA [id number] [facility] 2024-02-18 08:00:00 2024-02-18 08:00:00 Outpatient LAB90 SONIA ALCALA [id number] [facility] 2024-02-15 08:25:00 2024-02-15 08:25:00 Outpatient LAB90 SONIA ALCALA [id number] [facility] 2024-02-15 00:00:00 2024-02-15 00:00:00 Outpatient SONIA ALCALA [id number] [facility] 2024-02-15 00:00:00 2024-02-15 00:00:00 Outpatient SONIA ALCALA [id number] [facility] 2024-02-15 00:00:00 2024-02-15 00:00:00 Outpatient SONIA ALCALA [id number] [facility] 2024-02-15 00:00:00 2024-02-15 00:00:00 Outpatient SONIA ALCALA [id number] [facility] 2024-02-15 00:00:00 2024-02-15 00:00:00 Outpatient SONIA ALCALA [id number] [facility] 2024-02-15 00:00:00 2024-02-15 00:00:00 Outpatient JENNIFER PRICE [id number] [facility] 2024-02-14 13:30:00 2024-02-14 13:30:00 Outpatient FELIPA CALHOUN SONIA ALCALA [id number] [facility] 2024-02-14 13:30:00 2024-02-14 13:30:00 Outpatient 39, HOLTER SONIA ALCALA [id number] [facility] 2024-02-14 00:00:00 2024-02-14 00:00:00 Outpatient JENNIFER PRICE SONIA ALCALA [id number] [facility] 2024-02-14 00:00:00 2024-02-14 00:00:00 Outpatient SONIA ALCALA [id number] [facility] 2024-02-05 16:00:00 2024-02-05 16:00:00 Outpatient SONIA ALCALA [id number] [facility] 2024-02-04 00:00:00 2024-02-04 00:00:00 Outpatient PREROM ARREDONDOAND SONIA ALCALA [id number] [facility] 2024-02-01 08:40:00 2024-02-01 08:40:00 Outpatient LAB90 SONIA ALCALA [id number] [facility] 2024-01-31 10:40:00 2024-01-31 10:40:00 Outpatient 39, HOLTER SONIA ALCALA [id number] [facility] 2024-01-31 10:15:00 2024-01-31 10:15:00 Outpatient FELIPA CALHOUN SONIA AL[facility]A [id number] [facility] 2024-01-30 11:30:00 2024-01-30 11:30:00 Outpatient PREZASMARQUES SONIA ALCALA [id number] [facility] 2024-01-30 00:00:00 2024-01-30 00:00:00 Outpatient PREMARQUES ARREDONDO [id number] [facility] 2024-01-29 10:45:00 2024-01-29 10:45:00 Outpatient SONIA ALCALA [id number] [facility]onia [facility] 2024-01-28 00:00:00 2024-01-28 00:00:00 Outpatient PREZAS, MARQUES ALCALA SONIA [id number] [facility] 2024-01-24 00:00:00 2024-01-24 00:00:00 Outpatient PREZAS, MARQUES ALCALA SONIA [id number] [facility] 2024-01-11 00:00:00 2024-01-11 00:00:00 Outpatient PREZAS, MARQUES ALCALA SONIA [id number] [facility] 2024-01-02 11:30:00 2024-01-02 11:30:00 Outpatient PREZAS, MARQUES ALCALA SONIA [id number] [facility] 2024-01-02 00:00:00 2024-01-02 00:00:00 Outpatient PREZAS, MARQUES SONIA SONIA [id number] [facility] 2023-12-28 00:00:00 2023-12-28 00:00:00 Outpatient PREZAS, MARQUES [facility]IA [facility]CAL[facility] [id number] [facility]23-[facility]-18 00:00:00 2023-12-18 00:00:00 Outpatient PREZAS, MARQUES SONIA ALCALA [id number] [facility] 2023-12-12 16:30:00 2023-12-12 16:30:00 Outpatient SONIA ALCALA [id number] [facility] 2023-12-08 00:00:00 2023-12-08 00:00:00 Outpatient PREZAS, MARQUES SONIA ALCALA [id number] [facility] 2023-11-30 11:45:00 2023-11-30 11:45:00 Outpatient PREZAS, MARQUES SONIA ALCALA [id number] [facility] 2023-11-19 00:00:00 2023-11-19 00:00:00 Outpatient PREZAS, MARQUES SONIA ALCALA [id number] [facility] 2023-11-19 00:00:00 2023-11-19 00:00:00 Outpatient PREZAS, MARQUES SONIA ALCALA [id number] [facility] 2023-11-16 09:05:00 2023-11-16 09:05:00 Outpatient LAB90 SONIA ALCALA [id number] [facility] 2023-11-16 08:15:00 2023-11-16 08:15:00 Outpatient PREZAS, MARQUES ALCALA SONIA [id number] [facility] 2023-10-24 14:15:00 2023-10-24 14:15:00 Outpatient PREZAS, MARQUES ALCALA SONIA [id number] [facility] 2023-09-17 00:00:00 2023-09-17 00:00:00 Outpatient PREZAS, MARQUES ALCALA SONIA [id number] [facility] 2023-08-31 00:00:00 2023-08-31 00:00:00 Outpatient PREZAS, MARQUES ALCALA SONIA [id number] [facility] 2023-08-09 00:00:00 2023-08-09 00:00:00 Outpatient PREZAS, AMRQUES ALCALA SONIA [id number] [facility] 2023-07-19 00:00:00 2023-07-19 00:00:00 Outpatient PREZAS, MARQUES ALCALA SONIA [id number] [facility] 2023-07-08 00:00:00 2023-07-08 00:00:00 Outpatient PREZAS, MARQUES ALCALA SONIA [id number] [facility] 2023-07-05 00:00:00 2023-07-05 00:00:00 Outpatient PREZAS, MARQUES LOCKHARTTIFFANIE ALCALA [id number] [facility] 2023-05-15 09:54:00 2023-05-15 09:54:00 Outpatient SFA SFA [id number] Francisco Zamora Cristian 2023-05-08 14:38:20 2023-05-08 14:38:20 Outpatient SFA SFA [id number] Francisco Zamora Cristian 2023-04-13 00:00:00 2023-04-13 00:00:00 Outpatient PREZAS, MARQUES SONIA ALCALA [id number] [facility] 2023-04-10 00:00:00 2023-04-10 00:00:00 Outpatient PREZAS, MARQUES SONIA ALCALA [id number] [facility] 2023-04-02 00:00:00 2023-04-02 00:00:00 Outpatient PREZAS, MARQUES ALCALA [id number] [facility] 2023-03-26 16:45:00 2023-03-26 16:45:00 Outpatient PREZAS, MARQUES ALCALA [id number] [facility] 2023-03-26 00:00:00 2023-03-26 00:00:00 Outpatient PREZAS, MARQUES ALCALA [id number] [facility] 2023-03-22 00:00:00 2023-03-22 00:00:00 Outpatient PREZAS, MARQUES ALCALA [id number] [facility] 2023-03-22 00:00:00 2023-03-22 00:00:00 Outpatient PREZAS, MARQUES ALCALA SONIA [id number] [facility] 2023-03-20 08:05:00 2023-03-20 08:05:00 Outpatient LAB90 SONIA ALCALA [id number] [facility] 2023-03-19 09:00:00 2023-03-19 09:00:00 Outpatient PREZAS, MARQUES ALCALA SONIA [id number] [facility] 2023-02-12 00:00:00 2023-02-12 00:00:00 Transition of Care Jewel Rebecca Tiera GONZALEZSusan ESCUDERO CAMARILLO ..840.114 350.1.13.10 4.2.7.2.[id number] [facility] 2023-01-30 18:09:00 2023-02-09 15:20:00 Inpatient U JOAN FAGAN [facility] [id number] [facility] 2023-01-30 18:09:00 2023-02-09 15:20:00 Hospital Encounter Micah Novoa, Jaz Araujo, Joan Lubin [facility] ..840.114 350.1.13.10 4.2.7.2.[id number] [facility] 2023-02-09 00:00:00 2023-02-09 00:00:00 Diego Neri [facility] JAI 1.2.840.114 350.1.13.10 4.2.7.2.[id number] [facility] 2023-02-02 14:45:00 2023-02-02 14:45:00 Outpatient PREZAS, MARQUES SONIA ALCALA [id number] [facility] 2023-01-29 00:00:00 2023-01-29 00:00:00 Outpatient PREZAS, MARQUES ALCALA [id number] [facility] 2023-01-08 14:45:00 2023-01-08 14:45:00 Outpatient PREZAS, MARQUES ALCALA [id number] [facility] 2022-12-28 15:15:00 2022-12-28 15:15:00 Outpatient SONIA ALCALA [id number] [facility] 2022-12-21 15:15:00 2022-12-21 15:15:00 Outpatient SONIA ALCALA [id number] [facility] 2022-12-21 13:45:00 2022-12-21 13:45:00 Outpatient PREZAS, MARQUESJENI ALCALA [id number] [facility] 2022-12-18 00:00:00 2022-12-18 00:00:00 Outpatient PREZAS, MARQUES ALCALA [id number] [facility] 2022-12-13 10:00:00 2022-12-13 10:00:00 Outpatient PREZAS, MARQUES ALCALA [id number] [facility] 2022-12-06 14:30:00 2022-12-06 14:30:00 Outpatient PREZAS, MARQUES ALCALA [id number] [facility] 2022-12-06 14:30:00 2022-12-06 14:30:00 Outpatient PREZAS, MARQUES ALCALA [id number] [facility] 2022-12-06 11:15:00 2022-12-06 11:15:00 Outpatient MARQUES THOMAS SONIA [id number] [facility] 2022-11-22 08:00:00 2022-11-22 08:00:00 Outpatient TRAVIS ASHTON SONIA ALCALA [id number] [facility] 2022-09-25 17:44:22 2022-09-25 17:44:22 Outpatient SFA SFA [id number] Francisco Foster 2022-09-14 09:47:26 2022-09-14 09:47:26 Outpatient SFA [id number] Francisco Foster 2022-09-09 11:01:13 2022-09-09 11:01:13 Outpatient SFA 1203 Francisco Foster 2022-09-09 00:00:00 2022-09-09 00:00:00 Outpatient Visit [id number] [id number] 00:00:00 2022-06-13 00:00:00 Outpatient Visit [id number] 2021-07-11 00:00:00 2021-07-11 00:00:00 Transition of Care Aurora Goins ..840.114 350.1.13.10 4.2.7.2.[id number] [facility] 2021-07-03 00:38:00 2021-07-08 12:55:00 Hospital Encounter Wong Santo Adnan [place], Jelani [facility] ..840.114 350.1.13.10 4.2.7.2.[id number] [facility] 2021-07-07 07:30:00 2021-07-07 09:15:00 Surgery Nomi Robles [facility] 1.2.840.114 350.1.13.10 4.2.7.2.[id number] [facility] 2021-07-05 17:20:00 2021-07-05 18:24:00 Surgery Nomi Robles [facility] 1.2.840.114 350.1.13.10 4.2.7.2.[id number] [facility] 2021-07-03 00:27:00 2021-07-03 00:27:00 Emergency X [facility] ERT [id number] [facility] Results Test Description Test Time Test Comments Results Result Co mments Source [facility] GLUCOSE (AUTOMATED)2023-02-09 12:43:00* Test Item Value Reference Range Interpretation Comme nts POCT GLU (test code = 0957456408) 120 mg/dL 70-110 H Lab Interpretation (test cod e = 43009-2) Abnormal [facility] GLUCOSE (AUTOMATED)2023-02-09 01:28:05* Test Item Value Reference Range Interpretation Comme nts POCT GLU (test code = 1026864607) 267 mg/dL 70-110 H Lab Interpretation (test cod e = 93535-6) Abnormal [facility] GLUCOSE (AUTOMATED)2023-02-08 22:01:26* Test Item Value Reference Range Interpretation Comme nts POCT GLU (test code = 4242124982) 217 mg/dL 70-110 H Lab Interpretation (test cod e = 98045-9) Abnormal [facility] GLUCOSE (AUTOMATED)2023-02-08 18:16:43* Test Item Value Reference Range Interpretation Comme nts POCT GLU (test code = 5890470246) 129 mg/dL 70-110 H Lab Interpretation (test cod e = 07695-2) Abnormal [facility] GLUCOSE (AUTOMATED)2023-02-08 13:23:22* Test Item Value Reference Range Interpretation Comme nts POCT GLU (test code = 1661329134) 125 mg/dL 70-110 H Lab Interpretation (test cod e = 05257-0) Abnormal [facility] GLUCOSE (AUTOMATED)2023-02-08 01:12:01* Test Item Value Reference Range Interpretation Comme nts POCT GLU (test code = 7972742132) 207 mg/dL 70-110 H Lab Interpretation (test cod e = 31524-0) Abnormal [facility] GLUCOSE (AUTOMATED)2023-02-07 23:02:17* Test Item Value Reference Range Interpretation Comme nts POCT GLU (test code = 3079335142) 212 mg/dL 70-110 H Lab Interpretation (test cod e = 07187-4) Abnormal [facility] GLUCOSE (AUTOMATED)2023-02-07 13:44:50* Test Item Value Reference Range Interpretation Comme nts POCT GLU (test code = 4885780381) 137 mg/dL 70-110 H Lab Interpretation (test cod e = 65098-0) Abnormal [facility] GLUCOSE (AUTOMATED)2023-02-07 01:34:23* Test Item Value Reference Range Interpretation Comme nts POCT GLU (test code = 4063660129) 182 mg/dL 70-110 H Lab Interpretation (test cod e = 81594-8) Abnormal [facility] GLUCOSE (AUTOMATED)2023-02-06 21:35:48* Test Item Value Reference Range Interpretation Comme nts POCT GLU (test code = 9401367863) 208 mg/dL 70-110 H Lab Interpretation (test cod e = 03311-4) Abnormal [facility] GLUCOSE (AUTOMATED)2023-02-06 16:49:01* Test Item Value Reference Range Interpretation Comme nts POCT GLU (test code = 5711576852) 149 mg/dL 70-110 H Lab Interpretation (test cod e = 31018-2) Abnormal [facility] GLUCOSE (AUTOMATED)2023-02-06 12:49:40* Test Item Value Reference Range Interpretation Comme nts POCT GLU (test code = 9581407371) 129 mg/dL 70-110 H Lab Interpretation (test cod e = 36494-3) Abnormal [facility] GLUCOSE (AUTOMATED)2023-02-06 01:32:23* Test Item Value Reference Range Interpretation Comme nts POCT GLU (test code = 9970279900) 218 mg/dL 70-110 H Lab Interpretation (test cod e = 59504-4) Abnormal [facility] GLUCOSE (AUTOMATED)2023-02-05 21:16:54* Test Item Value Reference Range Interpretation Comme nts POCT GLU (test code = 1792613476) 196 mg/dL 70-110 H Lab Interpretation (test cod e = 94083-2) Abnormal [facility] GLUCOSE (AUTOMATED)2023-02-05 16:28:07* Test Item Value Reference Range Interpretation Comme nts POCT GLU (test code = 3208137483) 141 mg/dL 70-110 H Lab Interpretation (test cod e = 59393-5) Abnormal [facility] GLUCOSE (AUTOMATED)2023-02-05 13:16:58* Test Item Value Reference Range Interpretation Comme nts POCT GLU (test code = 1512033284) 111 mg/dL 70-110 H Lab Interpretation (test cod e = 64305-6) Abnormal [facility] GLUCOSE (AUTOMATED)2023-02-05 02:08:45* Test Item Value Reference Range Interpretation Comme nts POCT GLU (test code = 2539174806) 186 mg/dL 70-110 H Lab Interpretation (test cod e = 53306-8) Abnormal [facility] GLUCOSE (AUTOMATED)2023-02-04 21:56:12* Test Item Value Reference Range Interpretation Comme nts POCT GLU (test code = 2088756604) 169 mg/dL 70-110 H Lab Interpretation (test cod e = 38212-6) Abnormal [facility] GLUCOSE (AUTOMATED)2023-02-04 17:09:55* Test Item Value Reference Range Interpretation Comme nts POCT GLU (test code = 3301479853) 147 mg/dL 70-110 H Lab Interpretation (test cod e = 81621-3) Abnormal [facility] GLUCOSE (AUTOMATED)2023-02-04 12:44:04* Test Item Value Reference Range Interpretation Comme nts POCT GLU (test code = 9981172414) 134 mg/dL 70-110 H Lab Interpretation (test cod e = 94780-5) Abnormal [facility] GLUCOSE (AUTOMATED)2023-02-04 01:35:35* Test Item Value Reference Range Interpretation Comme nts POCT GLU (test code = 1777572372) 165 mg/dL 70-110 H Lab Interpretation (test cod e = 68543-1) Abnormal [facility] GLUCOSE (AUTOMATED)2023-02-03 22:24:21* Test Item Value Reference Range Interpretation Comme nts POCT GLU (test code = 3056011449) 119 mg/dL 70-110 H Lab Interpretation (test cod e = 28299-8) Abnormal [facility] GLUCOSE (AUTOMATED)2023-02-03 16:50:54* Test Item Value Reference Range Interpretation Comme nts POCT GLU (test code = 6048087433) 225 mg/dL 70-110 H Lab Interpretation (test cod e = 45117-4) Abnormal [facility] GLUCOSE (AUTOMATED)2023-02-03 13:20:55* Test Item Value Reference Range Interpretation Comme nts POCT GLU (test code = 3149067877) 124 mg/dL 70-110 H Lab Interpretation (test cod e = 32401-0) Abnormal [facility] GLUCOSE (AUTOMATED)2023-02-03 02:16:40* Test Item Value Reference Range Interpretation Comme nts POCT GLU (test code = 7293214276) 150 mg/dL 70-110 H Lab Interpretation (test cod e = 15462-8) Abnormal [facility] GLUCOSE (AUTOMATED)2023-02-02 22:16:00* Test Item Value Reference Range Interpretation Comme nts POCT GLU (test code = 0093923938) 225 mg/dL 70-110 H Lab Interpretation (test cod e = 44446-7) Abnormal [facility] GLUCOSE (AUTOMATED)2023-02-02 17:16:51* Test Item Value Reference Range Interpretation Comme nts POCT GLU (test code = 6939554160) 175 mg/dL 70-110 H Lab Interpretation (test cod e = 28491-8) Abnormal [facility] GLUCOSE (AUTOMATED)2023-02-02 12:37:49* Test Item Value Reference Range Interpretation Comme nts POCT GLU (test code = 3940561405) 130 mg/dL 70-110 H Lab Interpretation (test cod e = 45036-7) Abnormal [facility] GLUCOSE (AUTOMATED)2023-02-02 01:15:10* Test Item Value Reference Range Interpretation Comme nts POCT GLU (test code = 6696169612) 183 mg/dL 70-110 H Lab Interpretation (test cod e = 40218-3) Abnormal [facility] GLUCOSE (AUTOMATED)2023-02-01 21:59:52* Test Item Value Reference Range Interpretation Comme nts POCT GLU (test code = 9075828080) 118 mg/dL 70-110 H Lab Interpretation (test cod e = 38800-8) Abnormal [facility] GLUCOSE (AUTOMATED)2023-02-01 16:21:37* Test Item Value Reference Range Interpretation Comme nts POCT GLU (test code = 6075457331) 171 mg/dL 70-110 H Lab Interpretation (test cod e = 10522-5) Abnormal [facility] GLUCOSE (AUTOMATED)2023-02-01 12:51:51* Test Item Value Reference Range Interpretation Comme nts POCT GLU (test code = 1845851473) 111 mg/dL 70-110 H Lab Interpretation (test cod e = 00580-0) Abnormal [facility] GLUCOSE (AUTOMATED)2023-02-01 01:49:19* Test Item Value Reference Range Interpretation Comme nts POCT GLU (test code = 8133978318) 131 mg/dL 70-110 H Lab Interpretation (test cod e = 59388-7) Abnormal [facility] [id number] 23:05:19* Test Item Value Reference Range Interpretation Comme nts FREE T4 (test code = 9271054563) 1.17 See_Comment [Automated messa ge] The system which generated this result transmitted reference range: 0.78 - 2.20 ng/dL:. The reference range was not used to interpret this result as normal/abnormal. Lab Interpretation (test code = 01094-4) Normal [facility] GLUCOSE (AUTOMATED)2023-01-31 21:16:44* Test Item Value Reference Range Interpretation Comme nts POCT GLU (test code = 7231164410) 139 mg/dL 70-110 H Lab Interpretation (test cod e = 82744-4) Abnormal [facility] GLUCOSE (AUTOMATED)2023-01-31 16:44:15* Test Item Value Reference Range Interpretation Comme nts POCT GLU (test code = 7289134824) 107 mg/dL 70-110 Lab Interpretation (test cod e = 37007-8) [facility] 12:56:40* Test Item Value Reference Range Interpretation Comme nts POCT GLU (test code = 0019489143) 110 mg/dL 70-110 Lab Interpretation (test cod e = 22646-6) [facility] [id number] 06:15:48* Test Item Value Reference Range Interpretation Comme nts FERRITIN (test code = 6617027042) 82.1 ng/mL 18.0-464.0 BRSYON (test code = BRYSON) Biotin has been reported to cause a negative bias, interpret results relative to patient's use of biotin. Lab Interpretation (test code = 52388-8) [facility] [id number] 05:47:28* Test Item Value Reference Range Interpretation Comme nts IRON (test code = 5132574616) 30 ug/dL 50-160 L TIBC (test code = 6728155935) 294 ug/dL 250-410 % FE SAT (test code = 6353351222) 10 % 20-50 L Lab Interpretation (test cod e = 17106-3) [facility]23-[facility] 05:38:19* Test Item Value Reference Range Interpretation Comme nts PHOSPHORUS (test code = 9604225254) 5.1 mg/dL 2.5-5.0 H Lab Interpretation (test cod e = 35363-8) [facility] [id number] 00:26:23* Test Item Value Reference Range Interpretation Comme nts TROPONIN I (test code = 3843757446) 0.016 ng/mL <=0.034 BRYSON (test code = [...] of biotin. Lab Interpretation (test code = 91185-3) [facility] [id number] 00:23:01* Test Item Value Reference Range Interpretation Comme nts NT-proBNP (test code = 4909596211) 2150 pg/mL <=125 H BRYSON (test code = BRYSON) Biotin has been reported to cause a negative bias, interpret results relative to patient's use of biotin. Lab Interpretation (test code = 36292-4) Abnormal [facility]. METABOLIC PANEL (23293)2023-01-31 00:14:59* Test Item Value Reference Range Interpretation Comme nts NA (test code = 1129029416) 139 mmol/L 135-145 K (test code = 8674829156) 5.3 mmol/L 3.5-5.0 H CL (test code = 4422452258) 111 mmol/L 98-108 H CO2 TOTAL (test code = 7682909200) 23 mmol/L 23-31 AGAP (test code = 2718039052) 5 2-16 BUN (test code = 5692014086) 37 mg/dL 7-23 H GLUCOSE (test code = 5601543848) 100 mg/dL 70-110 CREATININE (test code = 0375473417) 1.98 mg/dL 0.60-1.25 H TOTAL BILI (test code = 8984379310) 0.4 mg/dL 0.1-1.1 CALCIUM (test code = 9205495416) 8.7 mg/dL 8.6-10.6 T PROTEIN (test code = 8118565272) 6.6 g/dL 6.3-8.2 ALBUMIN (test code = 6521511727) 3.4 g/dL 3.5-5.0 L ALK PHOS (test code = 3412257972) 127 U/L 34-122 H ALTv (test code = 1742-6) 28 U/L 5-50 AST(SGOT) (test code = 8752293511) 34 U/L 13-40 eGFR (test code = 7487241599) 35.0 mL/min/1.73m2 BRYSON (test code = BRYSON) [...] imaging tests). Lab Interpretation (test code = 93086-4) Abnormal [facility] WITH [id number] 00:04:02* Test Item Value Reference Range Interpretation Comme nts WBC (test code = 6690-2) 9.27 See_Comment [Automated [employer]] The system which generated this result transmitted reference range: 4.20 - 10.70 10*3/?L. The reference range was not used to interpret this result as normal/abnormal. RBC (test code = 789-8) 3.15 See_Comment L [Automated [employer]] The system which generated this result transmitted [...] 31.3 g/dL 31.2-35.0 RDW-SD (test code = 58166-8) 49.5 fL 38.5-51.6 RDW-CV (test code = 788-0) 14.4 % 12.1-15.4 PLT (test code = 777-3) 248 See_Comment [Automated messa ge] The system which generated this result transmitted reference range: 150 - 328 10*3/?L. The reference range was not used to interpret this result as normal/abnormal. MPV (test code = 03789-2) 11.9 fL 9.8-13.0 NRBC/100 WBC (test code = 6534211510) 0.0 See_Comment [Automated me ssage] The system which generated this result transmitted reference range: 0.0 - 10.0 /100 WBCs. The reference range was not used to interpret this result as normal/abnormal. NRBC x10^3 (test code = 6316268069) See_Comment [Automated messa ge] The system which generated this result transmitted reference range: 10*3/?L. The reference range was not used to interpret this result as normal/abnormal. GRAN MAT (NEUT) % (test code = 770-8) 68.5 % IMM GRAN % (test code = 0243934417) 0.40 % LYMPH % (test code = 736-9) 17.8 % MONO % (test code = 5905-5) 10.4 % EOS % (test code = 713-8) 2.4 % BASO % (test code = 706-2) 0.5 % GRAN MAT x10^3(ANC) (test code = 4063345433) 6.35 10*3/uL 1.99-6.95 IMM GRAN x10^3 (test code = 7507101481) 0.04 10*3/uL 0.00-0.06 LYMPH x10^3 (test code = 731-0) 1.65 10*3/uL 1.09-3.23 MONO x10^3 (test code = 742-7) 0.96 10*3/uL 0.36-1.02 EOS x10^3 (test code = 711-2) 0.22 10*3/uL 0.06-0.53 BASO x10^3 (test code = 704-7) 0.05 10*3/uL 0.01-0.09 Lab Interpretation (test code = 75894-7) [facility] [id number] 04:29:13* Test Item Value Reference Range Interpretation Comme nts HEMOGLOBIN A1c (test code = 27761) 9.6 % 4.2-5.6 H [employer] GUIDELINES FOR HGB A1C: [...] CONSIDER ALTERNATE TESTING OR LABORATORY CONSULTATION. LIPID [id number] 02:58:52* Test Item Value Reference Range Interpretation [...] SPECIMENS. FOR MOREINFORMATION, SEE CLIENT ANNOUNCEMENT AT [email or web address] RISK RATIO LDL/HDL (test code = 2238) 3.29 RATIO <3.55 UNLESS OTHERW ISE INDICATED, ALL TESTING PERFORMED ATCL[facility], [facility] [address] [place], [place] [id number] MACHINE TECH: INKKIE CRANDALL M.D. [place] NUMBER [id number] [facility] [place]. [id number] HEMOGLOBIN [id number] 00:00:00* Test Item Value Reference Range Interpretation Comme nts HEMOGLOBIN A1c (test code = 08860) 9.6 % LIPID [id number] 00:00:00* Test Item Value Reference Range Interpretation Comme nts CHOLESTEROL (test code = 2210) 224 MG/DL TRIGLYCERIDES (test code = 2232) 174 MG/DL HDL CHOLESTEROL (test code = 2220) 45 MG/DL CALC LDL CHOL (test code = 2237) 148 MG/DL RISK RATIO LDL/HDL (test cod e = 2238) 3.29 RATIO LIPID [id number] 23:49:07* Test Item Value Reference Range Interpretation [...] SPECIMENS. FOR MOREINFORMATION, SEE CLIENT ANNOUNCEMENT AT [email or web address] RISK RATIO LDL/HDL (test code = 2238) 2.71 RATIO <3.55 COMPREHENSIVE METABOLIC [id number] 23:49:07* Test Item Value Reference Range Interpretation Comme nts GLUCOSE (test code = 2217) 259 MG/DL 70-99 H BUN (test code = 2208) 19 MG/DL 6-20 CREATININE (test code = 2214) 1.06 MG/DL 0.80-1.40 eGFR (2020 CKD-EPI) (test code = 02206) 82 ML/MIN/1.73 >60 CALC BUN/CREAT (test code = 2235) 18 RATIO 6-28 SODIUM (test code = 2231) 140 MEQ/L 133-146 POTASSIUM (test code = 2228) 4.3 MEQ/L 3.5-5.4 CHLORIDE (test code = 5) 103 MEQ/L 95-107 CARBON DIOXIDE (test code = 2205) 24 MEQ/L 19-31 CALCIUM (test code = 2208) 9.3 MG/DL 8.5-10.5 PROTEIN, TOTAL (test code = 2228) 6.7 G/DL 6.1-8.3 ALBUMIN (test code = 1) 3.7 G/DL 3.5-5.2 CALC GLOBULIN (test code = 0) 3.0 G/DL 1.9-3.7 CALC A/G RATIO (test code = 2234) 1.2 RATIO 1.0-2.6 BILIRUBIN, TOTAL (test code = 7) 0.3 MG/DL See_Comment [Automated me ssage] The system which generated this result transmitted reference range: <=1.2. The reference range was not used to interpret this result as normal/abnormal. ALKALINE PHOSPHATASE (test code = 2203) 109 U/L 40-123 AST (test code = 2217) 20 U/L 9-50 ALT (test code = 221) 21 U/L 5-50 UNLESS OTHERWISE INDICATED, ALL TESTING PERFORMED [facility] [employer] [address] [place] [address] MACHINE TECH: NIKKIE CRANDALL M.D. [place] NUMBER [id number] [facility] [place] [place]. [id number] HEMOGLOBIN [id number] 05:27:41* Test Item Value Reference Range Interpretation Comme nts HEMOGLOBIN A1c (test code = 11804) 9.9 % 4.2-5.6 H [employer] GUIDELINES FOR HGB A1C: [...] OR LABORATORY CONSULTATION. CBC W/AUTO DIFF WITH [id number] 04:31:59* Test Item Value Reference Range Interpretation [...] = 1065) 0.0 /100 WBC'S See_Comment [Automated LicenseMetricsa ge] The system which generated this result [...] 0.00-0.10 ABS NUCLEATED RBCS (test code = 72462) 0.00 K/UL 0.00-0.11 HEMOGLOBIN [id number] 00:00:00* Test Item Value Reference Range Interpretation Comme nts HEMOGLOBIN A1c (test code = 21159) 9.9 % COMPREHENSIVE METABOLIC [id number] 00:00:00* Test Item Value Reference Range Interpretation Comme nts GLUCOSE (test code = 2217) 259 MG/DL BUN (test code = 2208) 19 MG/DL CREATININE (test code = 2214) 1.06 MG/DL eGFR (2020 CKD-EPI) (test co de = 57949) 82 ML/MIN/1.73 CALC BUN/CREAT (test code = [...] code = 2219) 21 U/L CBC W/AUTO [id number] 00:00:00* Test Item Value Reference Range Interpretation [...] ABS NUCLEATED RBCS (test cod e = 31608) 0.00 K/UL LIPID [id number] 00:00:00* Test Item Value Reference Range Interpretation Comme nts CHOLESTEROL (test code = 2210) 213 MG/DL TRIGLYCERIDES (test code = 2232) 169 MG/DL HDL CHOLESTEROL (test code = 2220) 49 MG/DL CALC LDL CHOL (test code = 2237) 133 MG/DL RISK RATIO LDL/HDL (test cod e = 2238) 2.71 RATIO HEMOGLOBIN [id number] 00:00:00* Test Item Value Reference Range Interpretation Comme nts HEMOGLOBIN A1c (test code = 80271) 9.9 % COMPREHENSIVE METABOLIC [id number] 00:00:00* Test Item Value Reference Range Interpretation Comme nts GLUCOSE (test code = 2217) 259 MG/DL BUN (test code = 2208) 19 MG/DL CREATININE (test code = 2214) 1.06 MG/DL eGFR (2020 CKD-EPI) (test co de = 61433) 82 ML/MIN/1.73 CALC BUN/CREAT (test code = [...] code = 2219) 21 U/L CBC W/AUTO [id number] 00:00:00* Test Item Value Reference Range Interpretation [...] ABS NUCLEATED RBCS (test cod e = 76706) 0.00 K/UL LIPID [id number] 00:00:00* Test Item Value Reference Range Interpretation Comme nts CHOLESTEROL (test code = 2210) 213 MG/DL TRIGLYCERIDES (test code = 2232) 169 MG/DL HDL CHOLESTEROL (test code = 2220) 49 MG/DL CALC LDL CHOL (test code = 2237) 133 MG/DL RISK RATIO LDL/HDL (test cod e = 2238) 2.71 RATIO HEMOGLOBIN [id number] 07:51:54* Test Item Value Reference Range Interpretation Comme nts HEMOGLOBIN A1c (test code = 49526) 10.1 % 4.2-5.6 H [employer] GUIDELINES FOR HGB A1C: [...] ALTERNATE TESTING OR LABORATORY CONSULTATION. COMPREHENSIVE METABOLIC [id number] 06:38:05* Test Item Value Reference Range Interpretation Comme nts GLUCOSE (test code = 7) 164 MG/DL 70-99 H BUN (test code = 2207) 27 MG/DL 6-20 H CREATININE (test code = 2214) 1.06 MG/DL 0.80-1.40 eGFR (2020 CKD-EPI) (test code = 63347) 82 ML/MIN/1.73 >60 CALC BUN/CREAT (test code = 2235) 25 RATIO 6-28 SODIUM (test code = 2230) 141 MEQ/L 133-146 POTASSIUM (test code = 2228) 4.0 MEQ/L 3.5-5.4 CHLORIDE (test code = 2215) 103 MEQ/L 95-107 CARBON DIOXIDE (test code = 2206) 23 MEQ/L 19-31 CALCIUM (test code = 2209) 9.6 MG/DL 8.5-10.5 PROTEIN, TOTAL (test code = 2229) 6.9 G/DL 6.1-8.3 ALBUMIN (test code = 2201) 4.0 G/DL 3.5-5.2 CALC GLOBULIN (test code = 2240) 2.9 G/DL 1.9-3.7 CALC A/G RATIO (test code = 2234) 1.4 RATIO 1.0-2.6 BILIRUBIN, TOTAL (test code = 2207) 0.4 MG/DL See_Comment [Automated me ssage] The system which generated this result transmitted reference range: <=1.2. The reference range was not used to interpret this result as normal/abnormal. ALKALINE PHOSPHATASE (test code = 4) 97 U/L 40-123 AST (test code = 2218) 22 U/L 9-50 ALT (test code = 2219) 22 U/L 5-50 LIPID [id number] 06:38:05* Test Item Value Reference Range Interpretation Comme nts CHOLESTEROL (test code = 2210) 229 MG/DL <200 H TRIGLYCERIDES (test code = 2232) 122 MG/DL <150 HDL CHOLESTEROL (test code = 2220) 68 MG/DL >39 CALC LDL CHOL (test code = 2237) 137 MG/DL <100 H NOTE: CALCULATED LDL IS BASED ON ANA-BURGESS METHOD WHICHINCLUDES ADJUSTABLE TRIGLYCERIDE:VLDL CHOLESTEROL RATIO.THIS FACTOR VARIES BY MEASURED TRIGLYCERIDE AND NON-HDLCHOLESTEROL CONCENTRATIONS WITH INCREASED CALCULATED LDL SEENIN HIGHER TRIGLYCERIDE OR LOWER NON-HDL SPECIMENS. FOR MOREINFORMATION, SEE CLIENT ANNOUNCEMENT AT [email or web address] RISK RATIO LDL/HDL (test code = 2238) 2.01 RATIO <3.55 UNLESS OTHERW ISE INDICATED, ALL TESTING PERFORMED AT[facility]IN[facility] [employer] [address] [place] [id number] MACHINE TECH: NIKKIE CRANDALL M.D. CLIA NUMBER [id number] [facility] [place] [id number] CBC W/AUTO DIFF WITH [id number] 04:34:50* Test Item Value Reference Range Interpretation [...] = 1065) 0.0 /100 WBC'S See_Comment [Automated LicenseMetricsa ge] The system which generated this result [...] 0.00-0.10 ABS NUCLEATED RBCS (test code = 17425) 0.00 K/UL 0.00-0.11 COMPREHENSIVE METABOLIC [id number] 00:00:00* Test Item Value Reference Range Interpretation Comme nts GLUCOSE (test code = 2217) 164 MG/DL BUN (test code = 2208) 27 MG/DL CREATININE (test code = 2214) 1.06 MG/DL eGFR (2020 CKD-EPI) (test co de = 49898) 82 ML/MIN/1.73 CALC BUN/CREAT (test code = [...] (test code = 2219) 22 U/L LIPID [id number] 00:00:00* Test Item Value Reference Range Interpretation Comme nts CHOLESTEROL (test code = 2210) 229 MG/DL TRIGLYCERIDES (test code = 2232) 122 MG/DL HDL CHOLESTEROL (test code = 2220) 68 MG/DL CALC LDL CHOL (test code = 2237) 137 MG/DL RISK RATIO LDL/HDL (test cod e = 2238) 2.01 RATIO CBC W/AUTO [id number] 00:00:00* Test Item Value Reference Range Interpretation [...] ABS NUCLEATED RBCS (test cod e = 86719) 0.00 K/UL HEMOGLOBIN [id number] 00:00:00* Test Item Value Reference Range Interpretation Comme nts HEMOGLOBIN A1c (test code = 93053) 10.1 % COMPREHENSIVE METABOLIC [id number] 00:00:00* Test Item Value Reference Range Interpretation Comme nts GLUCOSE (test code = 2217) 164 MG/DL BUN (test code = 2208) 27 MG/DL CREATININE (test code = 2214) 1.06 MG/DL eGFR (2020 CKD-EPI) (test co de = 03415) 82 ML/MIN/1.73 CALC BUN/CREAT (test code = [...] (test code = 2219) 22 U/L LIPID [id number] 00:00:00* Test Item Value Reference Range Interpretation Comme nts CHOLESTEROL (test code = 2210) 229 MG/DL TRIGLYCERIDES (test code = 2232) 122 MG/DL HDL CHOLESTEROL (test code = 2220) 68 MG/DL CALC LDL CHOL (test code = 2237) 137 MG/DL RISK RATIO LDL/HDL (test cod e = 2238) 2.01 RATIO CBC W/AUTO [id number] 00:00:00* Test Item Value Reference Range Interpretation [...] ABS NUCLEATED RBCS (test cod e = 84434) 0.00 K/UL HEMOGLOBIN [id number] 00:00:00* Test Item Value Reference Range Interpretation Comme nts HEMOGLOBIN A1c (test code = 24413) 10.1 % POCT GLUCOSE (AUTOMATED)2021-07-08 17:00:05* Test Item Value Reference Range Interpretation Comme nts POCT GLU (test code = 9115669460) 174 mg/dL 70-110 H Lab Interpretation (test cod e = 94254-2) Abnormal [facility] GLUCOSE (AUTOMATED)2021-07-08 17:00:05* Test Item Value Reference Range Interpretation Comme nts POCT GLU (test code = 0665873234) 174 mg/dL 70-110 H Lab Interpretation (test cod e = 00494-0) Abnormal [facility] GLUCOSE (AUTOMATED)2021-07-08 13:07:13* Test Item Value Reference Range Interpretation Comme nts POCT GLU (test code = 2764916759) 230 mg/dL 70-110 H Lab Interpretation (test cod e = 68878-9) Abnormal [facility] GLUCOSE (AUTOMATED)2021-07-08 13:07:13* Test Item Value Reference Range Interpretation Comme nts POCT GLU (test code = 5857146663) 230 mg/dL 70-110 H Lab Interpretation (test cod e = 77682-9) [facility] [id number] 07:01:05* Test Item Value Reference Range Interpretation Comme nts Blood Culture-Aerobic (test code = 76141-5) No organisms isolated No growth Previous preliminary [...] 0201 CDT Blood Culture-Anaerobic (test code = 24897-4) No organisms isolated No growth Previous preliminary [...] 0201 CDT Lab Interpretation (test code = 49241-9) [facility] Culture - Peripheral # [id number] 07:01:05* Test Item Value Reference Range Interpretation Comme nts Blood Culture-Aerobic (test code = 59400-7) No organisms isolated No growth Previous preliminary [...] 0201 CDT Blood Culture-Anaerobic (test code = 96348-5) No organisms isolated No growth Previous preliminary [...] 0201 CDT Lab Interpretation (test code = 60425-1) [facility] Culture - Peripheral # [id number] 07:01:05* Test Item Value Reference Range Interpretation Comme nts Blood Culture-Aerobic (test code = 25399-5) No organisms isolated No growth Previous preliminary [...] 0201 CDT Blood Culture-Anaerobic (test code = 86908-3) No organisms isolated No growth Previous preliminary [...] 0201 CDT Lab Interpretation (test code = 58957-5) [facility] Culture - Peripheral # [id number] 07:01:05* Test Item Value Reference Range Interpretation Comme nts Blood Culture-Aerobic (test code = 43976-3) No organisms isolated No growth Previous preliminary [...] 0201 CDT Blood Culture-Anaerobic (test code = 66801-2) No organisms isolated No growth Previous preliminary [...] 0201 CDT Lab Interpretation (test code = 93512-0) Normal [facility] GLUCOSE (AUTOMATED)2021-07-07 22:16:33* Test Item Value Reference Range Interpretation Comme nts POCT GLU (test code = 8171650521) 293 mg/dL 70-110 H Lab Interpretation (test cod e = 56158-5) Abnormal [facility] GLUCOSE (AUTOMATED)2021-07-07 22:16:33* Test Item Value Reference Range Interpretation Comme nts POCT GLU (test code = 4218121603) 293 mg/dL 70-110 H Lab Interpretation (test cod e = 65923-7) [facility] [id number] 20:37:10* Test Item Value Reference Range Interpretation Comme nts Case Report (test code = 5537975632) Surgical Pathology ?Case: [id number] ? Authorizing Provider: ?Nomi Robles Jr., DPM ? Collected: ? 07/05/2021 1842 ?Ordering Location: ? ? [facility] ? ? ?Received: ?07/05/20211947 ? [facility] ?Pathologist: ? Eduardo Ordaz MD PHD ?Specimen: ? ?TOE, RIGHT FOURTH TOE ? Final Diagnosis (test code = 8046126524) [id number] FuZzEwMzNcZnRuYmpcdWMx IHtccnRmMVxlcGljOTYwMV vzfwXvNHLcjZChT7Nvbrvt ERmiOP4tTC1xpXefuAMfbB PmKACwBsFxw5qwz028aRGb s7jnGPMBslojyJl1aXzxT0 4bb0H3GkxaJ55nvLTjDHZ6 GPWkVAEhiXQfWRGhGSF0IM RvsXBhE4rePMViZU8qwvjm DYxmKAlaXFSzwKY9IEAoeZ SeW9XtUNYoFJhiQQUyjpr1 MqAfOh1ykLWxvCurQGvzET JkXHBsYWluXGZzMjBccGFy WQHuFPWKX4jXMVDIDZZFOO JJR9QuIBLZTGTMJTQPQ814 ZMTbanCrJQZyRGNHB7CMSH 7DAfJRYK9ZStLZEHZAILAA QBWPOEADOU3FUVCBTGsJRO lUSVNccGFyICAgICAtIFBS C2rJXWJXOSXPUGhAJKxQRg TKLQZMQNNBIWRWFJPbQ9Qp R8UPFX1YYYDDTMMJB2ckZW LhQTZnNT7wH9iZGmFSPxWp T17DHFXAGBZMOAZbPjRSXQ BQFV1OHC4AYcaOEbXjHWWT IFZJQUJMRSAgXHBhclxwYX EnOzBeJzSViXSmYJVjRV3r QV9ABgRsYTbjRpAnMmSyFS AgMToyMyBQTVxwYXJcZnMy ZHrxVHE0q7crpCJwATLjvJ NqMfSsVSMlYWHvp6zyNSWe bGFuZzEwMzNcZnRuYmpcdW AdLTHwQrLhn0gkp960nGQo c6xoMYRsTxG0oGZjLVAffV epfsl8bLqhNpJqDMRwk4se cyBcZmNoYXJzZXQwIEFyaW YjV971WATgNJbem3hde0Wi CDQlbFBme5F2WRMZDBffRj ErG042p3ibz1msmqSomRN2 AYSrWLS7FJtivpHwgbL2EZ gtuRBjJtX7RQyvqlEkLFbo suWpbzPyPic5JDNaC474HJ J9yUcze9ivYIM2KYQkDHUo RwmzTx0voGMdR153ZTPcYN KWFFUhoFn1BJPcpjGdsjHs eAMRm637Z054c8ssCLWqbq GqmNeQijwgw4uzJ827GYEb cGVydzEyMjQwXHBhcGVyaD W7AEBuAQ3gqilbKAmpLPfk NOTxfiF9CHAonWErN6ZoOF IuCD4wbefxXNK6VVvzHZTf POA1MeKqHFTqe4Xhgrv8Uk Omnl4ile82AWQ9j8GzoEdv XFA3DLG8FfQbLg3syYLrLV XkSZ3zHyWpdINdICHrjj92 jCmvSJshhpMkxF0nJyLyHA GefUZyRTZsFH8xzKCtPZWj bE3efyaeXIKwIuUzzrthXA TbsDhbqzTqAx4nsIphDIE1 NUynI3iycR9eLeF6GBclJ6 nmnV8tGFe2OQpftSK4FEKj wB5uFA1jcebzb2tsOBzxWA ioXFIktzN1foI5KAFrpNAe A5IjkX0nOOAzIT8zjgiyn2 dmMUX5LHcxUQDsLAQ5RzAp KWLqp2Vodmr3CzVky9IgfE PlUYqxM11gp970WIUobuPv H6hwaNNgpjjfqQOnvlkzBB cggtK2DGHwGWNnADstDKGe XGZzMjBcbGFuZzEwMzNcaG ljaFxmMVxkYmNoXGYxXGxv O5gpYsUtX8GcLFAxWjVfsG ZaBUvrkFH6VOEkXZDoj60t gVl7EZOfxffzh3LyQPDpcL OddAKnaT5vqzJbk1ahZEMj HSLhNHCzE3ZzWJP7oEWhOR VtgDQglDJ7JE4deeWeFT5c ZGUgYnkgcmVzaWRlbnRzLC YaBEkkq4wjDM4pMDRkqFkg qC0vpJE8OSLle5notRZjrW Ogp9syo0BwggQqRUvsNQRl HOdjAMXxYNMjPJ8eWJKotS EclaWwr4C3AneknSEnkhsw YoizxsL2CYjysnkzJCMaSK phJ0utGrFmWJManWwxYcuj p5UiBFPdCIIsZfjnpXIphQ 0= Clinical Information (test code = 4164818621) OSTEOMYELITIS/GANGRENE OF RIGHT FOURTH TOE Gross Description (test code = 5298218108) v0rlrBCnSXGqcSPYLZQnHb epxfYbOBBnoSVxJ4Txaegz VVrrNP2zHW9ruMbreVLovV LvTT9DANFwKzDiEQRtjMEp ndGxNlVaIMEabRMpiIC2SX ReJO9lgvecVCuwFTwsVZUw pmD5KQHxqHYjJ7SdIOJhXO 5uerepYRF6QOfrhO8nrnPE LztlOr8ynMZzpMvzRkInAl NoYXJzZXQwXGZuaWwgQXJp DGd6dS6IMcbxTRN2GFHJBm fyCXJlYO6Pm9mxRNMclATo NYP8ELektPKuVBElHDOaLS n5VXNlBKwwnBTlSR6toDdc PgfesWnte5UvcZOzZLmzFE AvLDCdHQswORDnCT0HXhHr MTiJLdWwDcF2OqU8MUv7BN DYMpKkVdIiEQE3ELgzWOpb AUp0OWl9HUkTKeCfPcV3Al D6YBeuOTG7IRO1YAqagZUf IFxcZiBBcmlhbCBcXGZzID EpQEttJgawPXxiD29dxCch uU8fZwIhPSFXNqVYV1DgIZ BhciANClxwbGFpblxlcGlj TmVzdERvYzEgDQpcbHRycG FyXGxpbjBccmluMCANClxs dHJjaFxmczIyIFNwZWNpbW YxEFWaqKEcevLbKPu9DFSs pF1lOe2tjRXyrJ8jvNNsWZ olLNR0xPYeNVCzDVXpXZTw UU92T9VcvdUdSShxCCyxhz WrPnGcMDCteptaeYKdKh76 cnRoIHRvZSIsIGFuZCBjb2 3uiXR8neCwLbZcNOAjto7i aB1tCJLkPDGjWA89LYsdWa 3xDAdsSa2tMBWaHXU3cVyy bBYsowEnxBRxdgYzD0XbAK MsTOXgmNZ3lPLnyCQ6MASh umGvnOtkaDMdB4KjqJYhw9 pnpN1gJISbSHGgx57yQQOn u0UzoQbraBsaxBEwWVG4br GcU5OeINr3LW7ocbByYyJb E46dnWJdgTwwFMjtwT6snG xgWKHefZ3eXQ1tGHDrFrNi cGowl1FuXEQbn1ZheDfyqa CnTTUkrO3oZPRZhTVruR6q NLuuJF1nlAcaKzAsfpoaSv W4gHBbSLMhwGAqLZqbuZzm baNbhIqfbZBevGK7sVtii0 JcDYBftR1oxsQxuB6wKLIp ZXJlIGlzIGEgdGFuLXllbG jvhvT7naI5NI0ngHNmdDia OSThT4PmEKVxKKWsTRYbu5 4gKGFwcHJveGltYXRlbHkg Ma67FMxmDj01RMGaHRMnx4 GdbWQmCM2yQOAfXCCwa6Jw OLbfs6DaCuXpCTVzQaF1gI KlwK6dXOE4lTGpBTakSaS4 vlD5gRSgzXQvzXYyVVPhNB BsYXRlcmFsIHNpZGVzIHdo xEXoVDvusc7cxfKxPZFtPH How4rkBAZsOEVhv1F2ZVPt l1Z2FLWzQRElL7Cft60ceB ZeS5cvFENbACRcHLNbbXZw azKkZoKvL77ePkEejLG2fA HzQw0wEEHlcHDsqjVdS9Ro YXRlZCBzdXJmYWNlLiAgVG hlIHJlbWFpbmRlciBvZiB0 nDHlt8aimtBjyiIagDrjaZ EfdWErjxd8zYJlWMGqmEXf d0s5cDPpx2ghJTAri4PidF hyFw8iIMQkJOLws23xHNsw OKOpS8Ijx25rDWI8pzLyHG ZlYWwgdGFuLXllbGxvdyB0 zrM5HG2cehLwCRYbeRfooN r7CDJyqm93pxBwhWZte7Gp ZmFjZXMuICBSZXByZXNlbn HffRz2WGBjBZN7kL2xotKl xdIys6RyiIu2bTAhXGeqHC KgSJHzSMTkv6wai4bvvgth QSChYZvatEXhR1N2rJ1fTF 2tYOYwTPYwWHJQGd2enFLc AJ7YSNPkfiJQKrRrD2Wga6 8fO66dUUirlQYfEE8OJIA7 VNEdxL8gr91cuMP8mWDgnX BprkRbRYM5iM2kGJ1zrejf ruylBH3oQeUwVRdmGS76rY LtnMcecTLjUB4XHMD2ULEt xcIiEMdkXMY1tCD1kLV7FH Spt4MaEfJlOVzwfHMtuTNr YVvlaOqfjrt3IGNqE8Gbh2 6hTTkhCW41fGFypAkhMEJw dYexe7pxSlNmTGMrxCMnTk kwAFUyo31fzIZuOG9SNUU9 SJEgi4AdBEYjA5Dri31yJH WwuYLyj6EbuNK5bSHdYGFf h9dtd8fzgpqyCLCfXAiqlJ IgP6K8kS0dWJFykkHYOpae IGWeAFhPTDK4ZBCazyEsnX dfSMLYRK5LRUTpAAeuJBCc cOZVJLR0WT2pTFqvpEDexb lpEVIbK4BlQ1QysgUsnBWu YYNocsHor6wkIHW5WOWxqM RtoVCkDqRvSzryLRP7NUbj a0rrXLW8SPRuqMBxsEEqWX ccDkQqUgjaDGZfR1VzE8Aa ybO4BAs0 Disclaimer (test code = 5657063172) c4bunINuHRSdq8kmVJPwyQ FuZzEwMzNcZnRuYmpcdWMx ERayzoNkALgkw1JoN9UsVc AwMFxhbnNpXGRlZmxhbmcx EIRxVQI6jtHvGKVfKRjqHU TsNMymLo0rnYLraCaeWrIf TPZbr9sfweZZHXnuJsDrG4 00IDHpSYehw7ehc8TdWPXi dTRhq5K1NBQKbgorqXj5eS imS07ds6G6OwkkT8eaHMBj CNHsX5TbBI0fIXIzZfy2RF O2ZQJ0JRPdJAFjR5LlJT8k TTXgqGJoHQb2y5jpyUygNP PpOZY9w9joMIxbbaKrZK8b sc9qyPc5p2zdzrLdUDUdCB UviXQHWQOvB3QnrZylXj9v oVn5oYwoVquqJGD5Liz9EY 0bvd10cac3yIwbNIVthasm XtK5QUoxDUFevqrgPQh6UB ljWIEmsIC2VHAfqZZmL7Bw AKVwOC6iymx5VRZ4GEwgVR IgAxQ3MDMarBSkXOVxwBxe WTdfa843SHU2AmLpWV0zD2 Gno4H3lX6apSVfXTSeqPCa BrPvQUQlai3zeZSiEQlgv4 GtXZV4osI5tSFlwHVeWWDo BP62Pnbtp7VwHrwyc4XgW4 1olUR3CMvsn2gsVP8pChB3 fiZwPFzun4stnF6lCkI0RZ xvBZ1sLE6zGROqvN3yvrzo XHBnYnJkcmhlYWRccGdicm CoUe3ngZdzXKO3SNzlE3lk xM0iKbW1KTefW7rncM5hEE e6ZMakwQM9BDScgD1fJQ2t akmgw8fgORnnWBprOYXgtg I0wwV9YSSkvKVxD8JauH6o QXZbXV3ynlepd4kxEIB6RU xoUJIeDIS4GpHlQUDhf2Fk azb5NbPhf0UalUWjUMqzQ1 7vf106ZMZmryKyC6ewtMRf gocmcHUpesyeTOqzuiG8QX HnecUxs0LhGSHlGOV9TWep RKfzeYYwTHYtdJmhq4faA0 RscGFyXHBsYWluXGYxXGZz MjBcbGFuZzEwMzNcaGljaF crLXuyCjTkYQAvMEipS1dm GfDeD5UgMTLbRpGrhMGaC0 ggVGhpcyByZXBvcnQgbWF5 UGptT5v4QMLuulUxcZk6qo YdHgFeTKRcQDC7XRursRWp NHXpw2NncobxoVJhKc8dgC OqPKVggD6oFVClXCHlPSqi PC3vuQr4UPAGhLPikZZmFv FSMPMzPQ67cjSyJIFWlllq p6A7CWzzPPDlq6FpbDDmR7 ahl7DmSYTjy31gZQ9er9C1 d9oeGIL4EZ4yy6CjKNHsxT TwhTMqDRLhs8Issbwer9Tm GUQcidIrw2TpCGNhaaYutV SxGHAhphAris9sjfUmYRFe DYWvU6StrpsffSenhnFhXA Pnxr4ktwBoAHO0XHAGJVAf PFZkg5IylP3faLVIJEY9bN Rpny1bcdNDqPOsIVNivw15 LPLbWN7tH0clBSDbFJLuyt JmzUNvi8IbSNJznZD6rIDc YD0UFdQAi69nPSKbNNGIct LoLXSfaFvbcPR3ydF6xO5p IChGREEpLlx+IFRoZSBGRE CdXC3uazXxt3RvudBljMlp MDMdnJLiu5SanPWyp2WnkR zjr8BymXWjqFJnBK8qQWMy clxwYXIgVVRNQiBMYWJvcm S6n9DfUXCaKXJmYRM8mSrj xkb3JLWfdG6rQMFaT0bhlh ngGOdrCHJut3FutW7xvRGU aEEcr2QlzGNtqBIFgRMeOG 9wqpHrOUgVKNyQTUM1mlTe OLDqx1NqHPdnR7woL75qsS gamJx1mOY5JRV4vG5bBzb+ IFxwYXJccGFyIEFwcHJvcH WnUMHpnGqaqtYiN1GxaqIe sB0pnOXaniLfQY0kRU9eS1 B1oBGnQBIaurGvo1kuXEzi dmUgYmVlbiByZXZpZXdlZC Wub4PhPAdwYGK1OZvfzsYu bmNsdWRpbmcgSCZFLCBTcG OerTXiIXP6RCxdonPtyeUf GB3hdJ9bvUngsE3qxTNvnG G9rxzwIJCyMTLuoWlyQUEl OB7usXKdJNLrcwXEjRfupD DleO1sD3EmZNPsMSDnpe8r ENWhdC0vDMdpb0SrcigsZN CsPYWwCLTsxdEraj2rMWSf kXBPBL9VNWjicXJbq8Zcjd KsD5hDSMT9AWNqDwQxTahs IOUeeQTjaXBxJCGkts60PT HrjO4ceUymTVAouV4zpX7i hXnqdP2cRrCeYtQdFRfeDC 3kVKDnS6dfzCYnHPXtGVGm F9nsRsWljQ0qcGmkSZsgOe BsEaEeNRzoIIZ7nW== Embedded Images (test code = [id number]) [facility] [id number] 20:37:10* Test Item Value Reference Range Interpretation Comme nts Case Report (test code = 2649375448) Surgical Pathology ?Case: [id number] ? Authorizing Provider: ?Nomi Robles Jr., JANAY ? Collected: ? 07/05/2021 1842 ?Ordering Location: ? ? [facility] ? ? ?Received: ?07/05/2021 1948 ? [facility] ?Pathologist: ? Eduardo Ordaz MD PHD ?Specimen: ? ?TOE, RIGHT FOURTH TOE ? Final Diagnosis (test code = [id number]) [id number] FuZzEwMzNcZnRuYmpcdWMx IHtccnRmMVxlcGljOTYwMV asjjRtNDVyfURoQ5Ygcsms JWjhMJ9dZW0jfVuumSPmaO LhNUImUaSuo4iqy388kCLq r4gdHCIRcoasfDv0bCqyM9 6vt9Z2AeiaW94ggYCyOAR4 YSQmTETmmBQrSAZvPGT2HF GtrIJiO8kjCWJwMJ4ovahd NWriJPwnYCKrzTW4LWBjzU AlD1AlCKYwJNmcANOxzif0 WlCyUz4quLAzqSvuXDvgOU JkXHBsYWluXGZzMjBccGFy ALMcZXTDV8jKZLFFOFRKDQ SCX7ZsHMTHOXHWMKJZX485 NRUjqySwHQTtSNQKS5SDBW 2OGeZPFC3HRlJSPLIIHRVV CNDEXWGRTG0HJHAVXIoHQA lUSVNccGFyICAgICAtIFBS L0gDUVEXWTFVJChVPSdQBc HBISYNCOUOGXCBKQCkS6Pt B4JWIP6QAUANKUHZH9maEB ZiTGAhPZ2gA7rXBdPTJdFt J42HKRZHWNQLMXHpFdKKIR DPWK7UJS3XGdmTJoExLLQZ IFZJQUJMRSAgXHBhclxwYX UxCjSwXnOJaXDbKUFvBB8j WO4BOoVgGFjiVmEdGmJsBA AgMToyMyBQTVxwYXJcZnMy NJgtCOK9e6slcPJrJCYxsL GcLiRpICQrXKAvp8bwPAPo bGFuZzEwMzNcZnRuYmpcdW RkCPTjQyYmt5xhh673aWGx j9yzNUNjPrC9rEIbYDKvqC ldqwl2hMgsHjItBUBof2qi cyBcZmNoYXJzZXQwIEFyaW IsW374EHAxGJwnx0wlu2Pv TWLbxOSyy0L3BVMRAAncMm BxT650j2oen3nvrgJrfRK0 DJQsHXP3JMiabgPlagX3ND touNZeHrC8GNvlppKwXZrp hvBwqjVhVuc9ISXvU150LL S6zByjz2xxTTX9WDLyESXe OxfsYf7yaTGzH292NKToNP BQPDBzlLf4ZQQyhuCzvxNt pQRFs245J110q5pdLJIino TttTdGjzijx8gsT317CTHy cGVydzEyMjQwXHBhcGVyaD S5TEHsBK8vimhsKQbbUVll YYVvjjH9XBNfcWKiF2QhRW YaIF5wgmpiCES3XNffLGRz BZW2ZhZwMWVul7Cimwh1Qe Kgsh6yfm36BCV5q6NknUzz OLJ8DGK2CyNzWi6peDGaME MoZC7rPnDpoJShPQYgca65 wXwpPFdlmiGkxS4dFyVxMW JluAZeGFIgTH2piSVlFZLg nX9sggvqVLPjWoOdfhizLJ QjkTjztnBkLy7ptOuxWEF3 BRjpE7hcpO5bIeW5ZKmqW6 xmjA7mPSd4JNrptNJ8FSPl qF1gFZ0fywyan7prIJqyAP utOVIvnhM5wpE7NDYzgKFb D5KvjR3kISIxKG3kiyvfa8 crWMA7PNhnZDOoQDN5RdLm QOTmw5Ajwed4PjArw0BxrO HzDNxxW45ar910RQIoijEt Y6ubaIJdwqkszUMtlfusXC wdllS0TCOvDYFhLTclNKUn XGZzMjBcbGFuZzEwMzNcaG ljaFxmMVxkYmNoXGYxXGxv N1itIdGuD6TmFRIkOaVqtU HjFOvijNL5FMWaJIXrb36h vEe8DSXzlcawx6ZmBZZkeH XvuHNwgK2rfmGib1saPJHk WIVxFPNmZ5DcYNE9tGPjPC IkrXIfmZI9KY6vhcBnJO9m ZGUgYnkgcmVzaWRlbnRzLC BbBYfln4aoMH2bWYWcuPps pK3arTL8KVSga8ryoGLjiW Djx9ocu8JxvuGlNZdkZUPc TLflWEGcUZLaYV6yDJCxcZ YbqiIew6P6IzakwOFzdxog JexcdhX1JAqfvkjyCAVeUG ogO8fsTbIrYFSxaEhpWrhj k9JuQGZrLKQwXtyqsIWfnJ 0= Clinical Information (test code = [id number]) OSTEOMYELITIS/GANGRENE OF RIGHT FOURTH TOE Gross Description (test code = [id number]) g6hkgLVdCNXcfUUDTQSfCh jjfgWcBVJxeXKtZ7Ptramr PAazOB0xXX9kpIgjqYRpzH IjCF6YMOLjVwPwKUOspAAp wtIwYgAqHAYeoJVezDN5CV NaPO5sxkmyXXgjEGxvFGPj iwS8CSRwkHZnV7KlQLHbJI 5wlkmcNZE1ENhhdX0ldnNH KsrzNu1nhKUqeHayAvFlCz NoYXJzZXQwXGZuaWwgQXJp UAr9gB7IKireHSS3VCAORl zqCIAtFA9Aa7fmPITabMPw PDQ4TJmkjDSjELHaXMSmHK l3FGSrUZxglFDpJS6jgVxk EynrwZixz6NsxAGcHHxuFE OmUETqZNreKNHpRU9WGxMr HGeXNfXjReU4EzR1PDj8NX AEQpVdWhTbPFM2TKjdEJsn AGe7BMw1GEcDOrGeIgU1Th C3EYueRLS4YZC8LJtgeCIc IFxcZiBBcmlhbCBcXGZzID BlOOdtPukcRTjsB91vdFub lO6xZbBhBGBUFnHLP5QrIX BhciANClxwbGFpblxlcGlj TmVzdERvYzEgDQpcbHRycG FyXGxpbjBccmluMCANClxs dHJjaFxmczIyIFNwZWNpbW AzANDxoQUkyyJbQGi3TFWt qW2wDo6bxEIcuB8clETtKQ vpQJG0mQVhMQOiLHVeVJUm BV22Q3UnzfBcIDrzNAlmvk ChJqXdBLWtmtoifXPkMm94 cnRoIHRvZSIsIGFuZCBjb2 8bpTM3ejZrHyAoFVYzaf2x kX1oNHJtYPVoBK77FFuwGw 8vJOerEh9fGCPxKBN0kNqk cYKgoaNayGCbmpSxA8EeEF MvMRZmhWK3oAKepHO8RZJy yzLzhTvxjLGjA6SecHIsc6 hwtW8mMYMzNWFyj79cDAHr c0HsvFqwtCafvFDuOEC8wd OwS8WcFFz5SA6wtnCdUyVg J07gvSFplZqfEQqrtW8dyT ioTZPpnY3dGN3vRMXnMpVx hTqel1DnTNFxa2KfcYvwcn RpWMCbpJ9oVVCCgVLrsW2i MImpSX9gnMxtRvHwmqitRl H1iCNpFYCdbOSgCXiusXkd bpAfmXpgeNNjwTH1uYwni4 BsUYDzgV8bnkCmrO0tIDZr ZXJlIGlzIGEgdGFuLXllbG fbvpC3naO1DM8afDNvqIiy TRLvU6ByPNSiRHLdLERkf6 4gKGFwcHJveGltYXRlbHkg Cu97WEkaDm36JPBkECNmb7 NtfCAsNO8vPYDgLAZyc9Gn QNgqu8QeXySlKHAkWdY4iF VyeX0mLDU6zMEiPCjjVzK9 mzR6gBKsvXVooWIeUFWdSI BsYXRlcmFsIHNpZGVzIHdo qOLiBJsdaf3jltNkWTFlNA Vry2fsYIDaMBAoh5A9PKZu c5U4KIMjYGOsG7Mcb49oeW OfG7arGSOcHSZjVIVhwHGh asEgIsTiV08uVnAmvSF0fV WpHc1lMUFmjEJdhjKtO8Dv YXRlZCBzdXJmYWNlLiAgVG hlIHJlbWFpbmRlciBvZiB0 pQOtj4yjjlRrtwKovSsbtP XrjFFxmia3aPVbPPNajTOx u3e0uQIej1wwHVCqs1KxqB ddYk6uYUUtQCQkh21rFJoc OSHnM6Kid03iCGY6rnKmXI ZlYWwgdGFuLXllbGxvdyB0 whF9TG5nmgAsDDMlwIpbvV i3PIDfis68jhErzAIkk2Ju ZmFjZXMuICBSZXByZXNlbn XozOv2YAJbJOZ4dD3gbwCb nkOgv4NsqJt3sWGkMRjoZA PuWCJkPHQip0hvh2stormo DNInZNzauORoW6T3mO7sVD 8wYUKxYXPgQQXTOz8pmKEs ZC4OVOGoxfGBMySsK0Ddc4 5lK90yFOupcWGdGR5AQKJ0 KJUfqM7qv39yxWF9lQYjqB HtkgZlNWJ7bR5fSL8uhoao coamVK4vTaAhSIyeOY49rI EalWdncCTlMI6KUAT6SFDz wzEgTSwnWDV8uJR1eVM7GR Sqq7MnZaMkRAoopVFnfSWp OOcygNzhnvj6SOKqB6Dzo2 0eYMszNK32eKWooVdeLQFa aLsdb4bfZiCoSAVdhMVwRq tvJVEbk72cmBAgST9VAER9 ZJGtd1LpESHeJ4Muc37zTU XgpXGqt4FweCU9kCOeTHTo t6odb7ukkjplNPZrCLzkbH LcD8I0aY2vIWIyjlTJVbfh AUOpPSqUCGY3AFVgdnPvqZ cwYQISCJ8NFWGkCWlsMYVq xJITGTD8LN7dTZvkqBKifr gpDKLlJ2CkG7VfriTvxWCq WXDokfNdo6osWPX1KWSqhM DzgSRnEuJdMjbbWOR0DOrt g9ssXWV1QHIaiQOutVNxLN ymUrVqIpriXRChG8UkL9Yt uxQ7OHe3 Disclaimer (test code = [id number]) f9fnwAHsWQKfk7ceWGAlkU FuZzEwMzNcZnRuYmpcdWMx KLaoevGoQObuj6SiH2UpVu AwMFxhbnNpXGRlZmxhbmcx MPHnXFL7rzZtEISvEVeuAH KlFPmyEx5dtYWshYviJqUg KIFqf3ufvzBBHNvaTvQxX0 27UBQdYYmas6kvj5AjIVGg jQBfq1A5UHLSynmdjFq3yX ruR91yz3P9NcqjW2tcAFNg YUXwE4MkAZ9qAZZcLuu3FI B2GNZ8KFAoPNNlM5YeFN5v KTJqsWLsACq3u5nroMwuGN GeCIY2o9rtSMlpisSpSN7q gw5qyDp1d2fouyLaKJVkXS WizSEPCJGoD5XreAxmHz0l qWf1iPnnQzsiWNR0Upw3FZ 3hsx42wxe2yVzdQHKgtzpw JiA3CHwtGJKztivbMOe3AW jfUYDnaKT8NINbwDAqH1Qq WAEbXG2ykkx7LIR5QMtvJC MiOuZ2THVjfLNvEQSuqVcr IAzur675QDE6XpNkEK9iF6 Auq9P3kR6keGOkPXJbaSVz HwRpTUNzjc9gkWEqOJobo1 LmOWM4mgA7sFUgjIKxUKUb CH30Vbjbk1PrSlowd0XgO0 2yqYD3QTmrn1njSN4qNpR4 rzIvWPyni5jbjR2xQtA2JJ alBN7xAA2hGJQqtU7idlyw XHBnYnJkcmhlYWRccGdicm BrAb3tbQnqWBP7GWzhN6sw uP5eZnH9YOflE4fwjJ8iHD y3SGpcgPV0NZUwyP9xAV3b jtgae4pmOBumFHveDTOvvx J1igA6PMQewPZtC5DfkQ5w WEDgPJ4ndenjh6okAWR9DN jnOWTgQRB0GlFvHXVzt2Ex gfi2EpLro2OkbXGaDLoyM4 8mv979MQYvsxNzJ4gpjEVh bioyaOJdjxufSStswvB9EV HgizKbk3FrGVRpYGW5QZtw AXopmEBfCIEggOwal9fhU0 RscGFyXHBsYWluXGYxXGZz MjBcbGFuZzEwMzNcaGljaF nbPJglDkSqIIWxASgdM3ub XzVmV8TvBLLlGaNdoCChG9 ggVGhpcyByZXBvcnQgbWF5 JLxlR7s7VQTokfQbqVm8qz PnPlHwFKPiGAV0LKsztLRs APXdm4VyrdbqkVHeIk4apI BpDLMkfZ8bVICdLGYxKUcv CF5anFi7RRFNyRAngNVqNu KJDZPtAM20lyArPNTVvenx l9D5FOksEDUmm4NywPJgV0 yvs3ByFEXki30sFL9jp7H7 l6ggDMK5QF8bp8PiKZCjgJ YwdVVpMPNxh6Uvejlbk3Mw DKViqaXtz1MjDDPaixVgeJ PkAPFgilLetn4iurBbFLZn HHYnZ6BptfxtlDgzscNhAW Psei8qtgZvBEV1YXWVIZAq RDHyw6OalC1jxAEGCGO6sG Epli4palMGcVDrLWIljv79 ZATjRY0pE6flEBTeBJLgci KevFQej1DdGGCwfOY9bKVl DD3NOnWYv27lAGGuXDNOfs ZkIAKnyUfkeNG6nsR4yS6u IChGREEpLlx+IFRoZSBGRE CaKF9wlqFpj4LobcAhxYlv QHBhgWNwa5GiaREht2XdiC adg1VdvNTdnUMqCE3eZVMp clxwYXIgVVRNQiBMYWJvcm C3v9JpQTUgSXEbZFC0oJhd plw9EPYsvI3iTHQuO9bpjl tpNJleBIXok2WofU7moLQZ gANph1BsaEXjlGNLrDLlPI 4cvrZuKQmRYZnOYZH3qdXt VAIae5GaIXgcI6xuA26pbT jzlNn1jTD7LHF0eV3hFup+ IFxwYXJccGFyIEFwcHJvcH KzBHEavHgnxsCvW3YonoEf aQ2dkJQcqmZxKF1bGN9bW9 K0kPHmHIAuotKxu4gmFOsc dmUgYmVlbiByZXZpZXdlZC Utl9AyJQtwVST6KYfjvyGk bmNsdWRpbmcgSCZFLCBTcG KsqFKuMWU4NAnkkfFecmZk VY7inY5wxTxobQ2eeYLftY I6xotaLTTaEKQmzAhzKQGn RZ8nrMCfOBOzjhRNyJnjwZ IhbJ1pT3ZiEHZoVIIccc0e RKAqrK1jAYmdq0EpcdqyTI NfSMYgHWTklmJgdt5jLLHh tZRVEE1JXDlqiJCsv9Shzx XuQ3jLKPK8ZKYoYjZoDajk RKBqoVOajXWoMNKfoi56KD SzrN0dxCgdEEZlaV3dzM8i nJrotJ2nWaPkHxRfJQexKI 7rNZElF9mahSFfOEYvRRJn D0urIbWlqO5rmVhnVAkaRd ZlVlBsDVqsAEO3tW== Embedded Images (test code = 1833928979) [facility] GLUCOSE (AUTOMATED)2021-07-07 17:04:49* Test Item Value Reference Range Interpretation Comme nts POCT GLU (test code = 6839177683) 295 mg/dL 70-110 H Lab Interpretation (test cod e = 42788-2) Abnormal [facility] GLUCOSE (AUTOMATED)2021-07-07 17:04:49* Test Item Value Reference Range Interpretation Comme nts POCT GLU (test code = 4231645200) 295 mg/dL 70-110 H Lab Interpretation (test cod e = 98520-6) Abnormal [facility] GLUCOSE (AUTOMATED)2021-07-07 14:55:34* Test Item Value Reference Range Interpretation Comme nts POCT GLU (test code = 9397519000) 191 mg/dL 70-110 H Lab Interpretation (test cod e = 86634-9) [facility] 14:55:34* Test Item Value Reference Range Interpretation Comme [facility] POCT GLU (test code = 5645351393) 191 mg/dL 70-110 H Lab Interpretation (test cod e = 78066-6) Abnormal [facility] METABOLIC PANEL (NA, K, CL, CO2, GLUCOSE, BUN, CREATININE, CA)2021-07-07 13:14:37* Test Item Value Reference Range Interpretation Comme [facility] NA (test code = 4250761582) 139 mmol/L 135-145 K (test code = 3810478814) 3.9 mmol/L 3.5-5.0 CL (test code = 2267661652) 111 mmol/L 98-108 H CO2 TOTAL (test code = 9819439228) 22 mmol/L 23-31 L AGAP (test code = 9535313432) 2-16 BUN (test code = 3866320600) 19 mg/dL 7-23 GLUCOSE (test code = 2883866263) 189 mg/dL 70-110 H CREATININE (test code = 6007605836) 0.87 mg/dL 0.60-1.25 CALCIUM (test code = 8554470809) 8.5 mg/dL 8.6-10.6 L eGFR (test code = 2212788435) mL/min/1.73m2 BRYSON (test code = BRYSON) Association [...] imaging tests). Lab Interpretation (test code = 72529-4) Abnormal [facility] METABOLIC PANEL (NA, K, CL, CO2, GLUCOSE, BUN, CREATININE, CA)2021-07-07 13:14:37* Test Item Value Reference Range Interpretation Comme nts NA (test code = 3964198551) 139 mmol/L 135-145 K (test code = 3105767299) 3.9 mmol/L 3.5-5.0 CL (test code = 9362086376) 111 mmol/L 98-108 H CO2 TOTAL (test code = 1319915722) 22 mmol/L 23-31 L AGAP (test code = 1703795603) 2-16 BUN (test code = 2619735874) 19 mg/dL 7-23 GLUCOSE (test code = 8836144409) 189 mg/dL 70-110 H CREATININE (test code = 5217644030) 0.87 mg/dL 0.60-1.25 CALCIUM (test code = 8591039429) 8.5 mg/dL 8.6-10.6 L eGFR (test code = 6906735400) mL/min/1.73m2 BRYSON (test code = BRYSON) Association [...] imaging tests). Lab Interpretation (test code = 10273-0) Abnormal [facility] GLUCOSE (AUTOMATED)2021-07-07 13:02:32* Test Item Value Reference Range Interpretation Comme [facility] POCT GLU (test code = 9098740473) 174 mg/dL 70-110 H Lab Interpretation (test cod e = 18239-1) Abnormal [facility] GLUCOSE (AUTOMATED)2021-07-07 13:02:32* Test Item Value Reference Range Interpretation Comme [facility] POCT GLU (test code = 3721466738) 174 mg/dL 70-110 H Lab Interpretation (test cod e = 46728-8) Abnormal [facility] WITH [id number] 11:32:04* Test Item Value Reference Range Interpretation Comme [facility] WBC (test code = 6690-2) See_Comment [Automated [...] 33.1 g/dL 31.2-35.0 RDW-SD (test code = 25843-9) 43.2 fL 38.5-51.6 RDW-CV (test code = 788-0) 12.5 % 12.1-15.4 PLT (test code = 777-3) See_Comment [Automated messa ge] The system which generated this result transmitted reference range: 150 - 328 10*3/?L. The reference range was not used to interpret this result as normal/abnormal. MPV (test code = 53833-5) 12.2 fL 9.8-13.0 NRBC/100 WBC (test code = 3801108839) See_Comment [Automated [employer] ssage] The system which generated this result transmitted reference range: 0.0 - 10.0 /100 WBCs. The reference range was not used to interpret this result as normal/abnormal. NRBC x10^3 (test code = 7975343500) <0.01 See_Comment [Automated [employer] ge] The system which generated this result transmitted reference range: 10*3/?L. The reference range was not used to interpret this result as normal/abnormal. GRAN MAT (NEUT) % (test code = 770-8) 66.0 % IMM GRAN % (test code = 8569659540) 0.50 % LYMPH % (test code = 736-9) 19.7 % MONO % (test code = 5905-5) 11.3 % EOS % (test code = 713-8) 2.1 % BASO % (test code = 706-2) 0.4 % GRAN MAT x10^3(ANC) (test code = 7248470615) 6.82 10*3/uL 1.99-6.95 IMM GRAN x10^3 (test code = 2148826878) 0.05 10*3/uL 0.00-0.06 LYMPH x10^3 (test code = 731-0) 2.03 10*3/uL 1.09-3.23 MONO x10^3 (test code = 742-7) 1.17 10*3/uL 0.36-1.02 H EOS x10^3 (test code = 711-2) 0.22 10*3/uL 0.06-0.53 BASO x10^3 (test code = 704-7) 0.04 10*3/uL 0.01-0.09 Lab Interpretation (test code = 27283-0) Abnormal [facility] WITH [id number] 11:32:04* Test Item Value Reference Range Interpretation [...] 33.1 g/dL 31.2-35.0 RDW-SD (test code = 08524-9) 43.2 fL 38.5-51.6 RDW-CV (test code = 788-0) 12.5 % 12.1-15.4 PLT (test code = 777-3) See_Comment [Automated messa ge] The system which generated this result transmitted reference range: 150 - 328 10*3/?L. The reference range was not used to interpret this result as normal/abnormal. MPV (test code = 11966-5) 12.2 fL 9.8-13.0 NRBC/100 WBC (test code = 5415983844) See_Comment [Automated me ssage] The system which generated this result transmitted reference range: 0.0 - 10.0 /100 WBCs. The reference range was not used to interpret this result as normal/abnormal. NRBC x10^3 (test code = 0712706379) <0.01 See_Comment [Automated messa ge] The system which generated this result transmitted reference range: 10*3/?L. The reference range was not used to interpret this result as normal/abnormal. GRAN MAT (NEUT) % (test code = 770-8) 66.0 % IMM GRAN % (test code = 7351325741) 0.50 % LYMPH % (test code = 736-9) 19.7 % MONO % (test code = 5905-5) 11.3 % EOS % (test code = 713-8) 2.1 % BASO % (test code = 706-2) 0.4 % GRAN MAT x10^3(ANC) (test code = 6870194664) 6.82 10*3/uL 1.99-6.95 IMM GRAN x10^3 (test code = 9171298361) 0.05 10*3/uL 0.00-0.06 LYMPH x10^3 (test code = 731-0) 2.03 10*3/uL 1.09-3.23 MONO x10^3 (test code = 742-7) 1.17 10*3/uL 0.36-1.02 H EOS x10^3 (test code = 711-2) 0.22 10*3/uL 0.06-0.53 BASO x10^3 (test code = 704-7) 0.04 10*3/uL 0.01-0.09 Lab Interpretation (test code = 79341-2) Abnormal [facility] GLUCOSE (AUTOMATED)2021-07-07 05:09:45* Test Item Value Reference Range Interpretation Comme nts POCT GLU (test code = 8754858361) 144 mg/dL 70-110 H Lab Interpretation (test cod e = 33859-1) Abnormal [facility] GLUCOSE (AUTOMATED)2021-07-07 05:09:45* Test Item Value Reference Range Interpretation Comme nts POCT GLU (test code = 4582724911) 144 mg/dL 70-110 H Lab Interpretation (test cod e = 59000-0) Abnormal [facility] GLUCOSE (AUTOMATED)2021-07-06 21:53:08* Test Item Value Reference Range Interpretation Comme nts POCT GLU (test code = 2635428622) 175 mg/dL 70-110 H Lab Interpretation (test cod e = 11957-9) Abnormal [facility] GLUCOSE (AUTOMATED)2021-07-06 21:53:08* Test Item Value Reference Range Interpretation Comme nts POCT GLU (test code = 8632700074) 175 mg/dL 70-110 H Lab Interpretation (test cod e = 59094-7) Abnormal [facility] WITH [id number] 18:53:33* Test Item Value Reference Range Interpretation [...] 33.5 g/dL 31.2-35.0 RDW-SD (test code = 29645-2) 42.3 fL 38.5-51.6 RDW-CV (test code = 788-0) 12.4 % 12.1-15.4 PLT (test code = 777-3) See_Comment [Automated messa ge] The system which generated this result transmitted reference range: 150 - 328 10*3/?L. The reference range was not used to interpret this result as normal/abnormal. MPV (test code = 09128-8) 12.0 fL 9.8-13.0 NRBC/100 WBC (test code = 2118370398) See_Comment [Automated [employer] ssage] The system which generated this result transmitted reference range: 0.0 - 10.0 /100 WBCs. The reference range was not used to interpret this result as normal/abnormal. NRBC x10^3 (test code = 7628290883) <0.01 See_Comment [Automated messa ge] The system which generated this result transmitted reference range: 10*3/?L. The reference range was not used to interpret this result as normal/abnormal. GRAN MAT (NEUT) % (test code = 770-8) 71.5 % IMM GRAN % (test code = 7920457403) 0.40 % LYMPH % (test code = 736-9) 16.7 % MONO % (test code = 5905-5) 10.6 % EOS % (test code = 713-8) 0.5 % BASO % (test code = 706-2) 0.3 % GRAN MAT x10^3(ANC) (test code = 2171096869) 7.86 10*3/uL 1.99-6.95 H IMM GRAN x10^3 (test code = 9744298505) 0.04 10*3/uL 0.00-0.06 LYMPH x10^3 (test code = 731-0) 1.84 10*3/uL 1.09-3.23 MONO x10^3 (test code = 742-7) 1.16 10*3/uL 0.36-1.02 H EOS x10^3 (test code = 711-2) 0.06 10*3/uL 0.06-0.53 BASO x10^3 (test code = 704-7) 0.03 10*3/uL 0.01-0.09 Lab Interpretation (test code = 41072-5) Abnormal [facility] WITH [id number] 18:53:33* Test Item Value Reference Range Interpretation [...] 33.5 g/dL 31.2-35.0 RDW-SD (test code = 88161-9) 42.3 fL 38.5-51.6 RDW-CV (test code = 788-0) 12.4 % 12.1-15.4 PLT (test code = 777-3) See_Comment [Automated messa ge] The system which generated this result transmitted reference range: 150 - 328 10*3/?L. The reference range was not used to interpret this result as normal/abnormal. MPV (test code = 14073-9) 12.0 fL 9.8-13.0 NRBC/100 WBC (test code = 0348410948) See_Comment [Automated [employer] ssage] The system which generated this result transmitted reference range: 0.0 - 10.0 /100 WBCs. The reference range was not used to interpret this result as normal/abnormal. NRBC x10^3 (test code = 7779308102) <0.01 See_Comment [Automated messa ge] The system which generated this result transmitted reference range: 10*3/?L. The reference range was not used to interpret this result as normal/abnormal. GRAN MAT (NEUT) % (test code = 770-8) 71.5 % IMM GRAN % (test code = 0616963412) 0.40 % LYMPH % (test code = 736-9) 16.7 % MONO % (test code = 5905-5) 10.6 % EOS % (test code = 713-8) 0.5 % BASO % (test code = 706-2) 0.3 % GRAN MAT x10^3(ANC) (test code = 0403971898) 7.86 10*3/uL 1.99-6.95 H IMM GRAN x10^3 (test code = 9594749955) 0.04 10*3/uL 0.00-0.06 LYMPH x10^3 (test code = 731-0) 1.84 10*3/uL 1.09-3.23 MONO x10^3 (test code = 742-7) 1.16 10*3/uL 0.36-1.02 H EOS x10^3 (test code = 711-2) 0.06 10*3/uL 0.06-0.53 BASO x10^3 (test code = 704-7) 0.03 10*3/uL 0.01-0.09 Lab Interpretation (test code = 49856-7) Abnormal [facility] WITH [id number] 18:53:33* Test Item Value Reference Range Interpretation [...] 33.5 g/dL 31.2-35.0 RDW-SD (test code = 64855-2) 42.3 fL 38.5-51.6 RDW-CV (test code = 788-0) 12.4 % 12.1-15.4 PLT (test code = 777-3) See_Comment [Automated messa ge] The system which generated this result transmitted reference range: 150 - 328 10*3/?L. The reference range was not used to interpret this result as normal/abnormal. MPV (test code = 57391-7) 12.0 fL 9.8-13.0 NRBC/100 WBC (test code = 2994715588) See_Comment [Automated [employer] ssage] The system which generated this result transmitted reference range: 0.0 - 10.0 /100 WBCs. The reference range was not used to interpret this result as normal/abnormal. NRBC x10^3 (test code = 4864761198) <0.01 See_Comment [Automated messa ge] The system which generated this result transmitted reference range: 10*3/?L. The reference range was not used to interpret this result as normal/abnormal. GRAN MAT (NEUT) % (test code = 770-8) 71.5 % IMM GRAN % (test code = 5191261239) 0.40 % LYMPH % (test code = 736-9) 16.7 % MONO % (test code = 5905-5) 10.6 % EOS % (test code = 713-8) 0.5 % BASO % (test code = 706-2) 0.3 % GRAN MAT x10^3(ANC) (test code = 2903753187) 7.86 10*3/uL 1.99-6.95 H IMM GRAN x10^3 (test code = 5041184482) 0.04 10*3/uL 0.00-0.06 LYMPH x10^3 (test code = 731-0) 1.84 10*3/uL 1.09-3.23 MONO x10^3 (test code = 742-7) 1.16 10*3/uL 0.36-1.02 H EOS x10^3 (test code = 711-2) 0.06 10*3/uL 0.06-0.53 BASO x10^3 (test code = 704-7) 0.03 10*3/uL 0.01-0.09 Lab Interpretation (test code = 29441-2) [facility] Please draw trough BEFORE the 4th dose scheduled at 1200, but no more than 60 mins before the dose is due.2021-07-06 17:34:01* Test Item Value Reference Range Interpretation Comme nts VANCO TROUGH (test code = 8694613172) 13.4 ug/mL 10.0-20.0 BRYSON (test code = BRYSON) Toxic Range: ?>20 ug/mL 15-20 ug/mL is recommended for severe infection or when Vancomycin ELISE is greater than or equal to 2. Lab Interpretation (test code = 65223-1) [facility] Please draw trough BEFORE the 4th dose scheduled at 1200, but no more than 60 mins before the dose is due.2021-07-06 17:34:01* Test Item Value Reference Range Interpretation Comme nts VANCO TROUGH (test code = 4464779220) 13.4 ug/mL 10.0-20.0 BRYSON (test code = RBYSON) Toxic Range: ?>20 ug/mL 15-20 ug/mL is recommended for severe infection or when Vancomycin ELISE is greater than or equal to 2. Lab Interpretation (test code = 18404-3) [facility] - Please draw trough BEFORE the 4th dose scheduled at 1200, but no more than 60 mins before the dose is due.2021-07-06 17:34:01* Test Item Value Reference Range Interpretation Comme nts VANCO TROUGH (test code = 1851454143) 13.4 ug/mL 10.0-20.0 BRYSON (test code = BRYSON) Toxic Range: ?>20 ug/mL 15-20 ug/mL is recommended for severe infection or when Vancomycin ELISE is greater than or equal to 2. Lab Interpretation (test code = 21035-5) Normal [facility] GLUCOSE (AUTOMATED)2021-07-06 16:47:55* Test Item Value Reference Range Interpretation Comme nts POCT GLU (test code = 6162559438) 321 mg/dL 70-110 H Lab Interpretation (test cod e = 11570-3) Abnormal [facility] GLUCOSE (AUTOMATED)2021-07-06 16:47:55* Test Item Value Reference Range Interpretation Comme nts POCT GLU (test code = 0158290614) 321 mg/dL 70-110 H Lab Interpretation (test cod e = 00504-1) Abnormal [facility] GLUCOSE (AUTOMATED)2021-07-06 16:47:55* Test Item Value Reference Range Interpretation Comme nts POCT GLU (test code = 8289910785) 321 mg/dL 70-110 H Lab Interpretation (test cod e = 55055-6) Abnormal [facility] GLUCOSE (AUTOMATED)2021-07-06 12:56:24* Test Item Value Reference Range Interpretation Comme nts POCT GLU (test code = 1789435347) 351 mg/dL 70-110 H Lab Interpretation (test cod e = 35470-5) Abnormal [facility] GLUCOSE (AUTOMATED)2021-07-06 12:56:24* Test Item Value Reference Range Interpretation Comme nts POCT GLU (test code = 2330205996) 351 mg/dL 70-110 H Lab Interpretation (test cod e = 81190-9) Abnormal [facility] GLUCOSE (AUTOMATED)2021-07-06 12:56:24* Test Item Value Reference Range Interpretation Comme nts POCT GLU (test code = 9094085324) 351 mg/dL 70-110 H Lab Interpretation (test cod e = 09340-2) Abnormal [facility]. METABOLIC PANEL ([id number])2021-07-06 12:27:31* Test Item Value Reference Range Interpretation Comme nts NA (test code = 6519783649) 136 mmol/L 135-145 K (test code = 1646529059) 4.9 mmol/L 3.5-5.0 CL (test code = 3697441070) 106 mmol/L 98-108 CO2 TOTAL (test code = 9471587590) 18 mmol/L 23-31 L AGAP (test code = 7063326551) 2-16 BUN (test code = 2032602980) 19 mg/dL 7-23 GLUCOSE (test code = 6015929140) 346 mg/dL 70-110 H CREATININE (test code = 1931910876) 0.91 mg/dL 0.60-1.25 TOTAL BILI (test code = 8269684098) 0.4 mg/dL 0.1-1.1 CALCIUM (test code = 2999679887) 8.5 mg/dL 8.6-10.6 L T PROTEIN (test code = 1495806438) 5.9 g/dL 6.3-8.2 L ALBUMIN (test code = 0291578838) 2.9 g/dL 3.5-5.0 L ALK PHOS (test code = 8787849642) 105 U/L 34-122 ALTv (test code = 1742-6) 19 U/L 5-50 AST(SGOT) (test code = 4223747181) 24 U/L 13-40 eGFR (test code = 1318960603) mL/min/1.73m2 BRYSON (test code = BRYSON) Association [...] imaging tests). Lab Interpretation (test code = 53844-9) Abnormal [facility] METABOLIC PANEL (01082)2021-07-06 12:27:31* Test Item Value Reference Range Interpretation Comme nts NA (test code = 4317634254) 136 mmol/L 135-145 K (test code = 8741736433) 4.9 mmol/L 3.5-5.0 CL (test code = 4258379700) 106 mmol/L 98-108 CO2 TOTAL (test code = 2916138187) 18 mmol/L 23-31 L AGAP (test code = 3867323493) 2-16 BUN (test code = 8841690914) 19 mg/dL 7-23 GLUCOSE (test code = 4161623958) 346 mg/dL 70-110 H CREATININE (test code = 1514236839) 0.91 mg/dL 0.60-1.25 TOTAL BILI (test code = 0974449501) 0.4 mg/dL 0.1-1.1 CALCIUM (test code = 1877697270) 8.5 mg/dL 8.6-10.6 L T PROTEIN (test code = 6036609227) 5.9 g/dL 6.3-8.2 L ALBUMIN (test code = 7611153616) 2.9 g/dL 3.5-5.0 L ALK PHOS (test code = 2472958587) 105 U/L 34-122 ALTv (test code = 1742-6) 19 U/L 5-50 AST(SGOT) (test code = 9789117875) 24 U/L 13-40 eGFR (test code = 9410002902) mL/min/1.73m2 BRYSON (test code = BRYSON) Association [...] imaging tests). Lab Interpretation (test code = 36511-5) Abnormal [facility]. METABOLIC PANEL (97907)2021-07-06 12:27:31* Test Item Value Reference Range Interpretation Comme nts NA (test code = 4096795515) 136 mmol/L 135-145 K (test code = 7583757848) 4.9 mmol/L 3.5-5.0 CL (test code = 4208284745) 106 mmol/L 98-108 CO2 TOTAL (test code = 9358413778) 18 mmol/L 23-31 L AGAP (test code = 3425144272) 2-16 BUN (test code = 6903946816) 19 mg/dL 7-23 GLUCOSE (test code = 9105121680) 346 mg/dL 70-110 H CREATININE (test code = 3830638976) 0.91 mg/dL 0.60-1.25 TOTAL BILI (test code = 3291858008) 0.4 mg/dL 0.1-1.1 CALCIUM (test code = 7429952636) 8.5 mg/dL 8.6-10.6 L T PROTEIN (test code = 1237909671) 5.9 g/dL 6.3-8.2 L ALBUMIN (test code = 4218651740) 2.9 g/dL 3.5-5.0 L ALK PHOS (test code = 6378709396) 105 U/L 34-122 ALTv (test code = 1742-6) 19 U/L 5-50 AST(SGOT) (test code = 9620494031) 24 U/L 13-40 eGFR (test code = 6142673752) mL/min/1.73m2 BRYSON (test code = BRYSON) Association [...] imaging tests). Lab Interpretation (test code = 02973-4) Abnormal [facility] GLUCOSE (AUTOMATED)2021-07-05 22:49:47* Test Item Value Reference Range Interpretation Comme [facility] POCT GLU (test code = 6925973457) 175 mg/dL 70-110 H Lab Interpretation (test cod e = 63350-4) Abnormal [facility] GLUCOSE (AUTOMATED)2021-07-05 22:49:47* Test Item Value Reference Range Interpretation Comme [facility] POCT GLU (test code = 4885163986) 175 mg/dL 70-110 H Lab Interpretation (test cod e = 02522-1) Abnormal [facility] GLUCOSE (AUTOMATED)2021-07-05 22:49:47* Test Item Value Reference Range Interpretation Comme nts POCT GLU (test code = 7764076377) 175 mg/dL 70-110 H Lab Interpretation (test cod e = 12946-1) Abnormal [facility] GLUCOSE (AUTOMATED)2021-07-05 22:49:05* Test Item Value Reference Range Interpretation Comme nts POCT GLU (test code = 8796054838) 170 mg/dL 70-110 H Lab Interpretation (test cod e = 03272-3) Abnormal [facility] GLUCOSE (AUTOMATED)2021-07-05 22:49:05* Test Item Value Reference Range Interpretation Comme nts POCT GLU (test code = 7863739615) 185 mg/dL 70-110 H Lab Interpretation (test cod e = 95583-3) Abnormal [facility] GLUCOSE (AUTOMATED)2021-07-05 22:49:05* Test Item Value Reference Range Interpretation Comme nts POCT GLU (test code = 3720267197) 170 mg/dL 70-110 H Lab Interpretation (test cod e = 16785-8) Abnormal [facility] GLUCOSE (AUTOMATED)2021-07-05 22:49:05* Test Item Value Reference Range Interpretation Comme nts POCT GLU (test code = 5990760615) 185 mg/dL 70-110 H Lab Interpretation (test cod e = 70250-6) Abnormal [facility] GLUCOSE (AUTOMATED)2021-07-05 22:49:05* Test Item Value Reference Range Interpretation Comme nts POCT GLU (test code = 9981947422) 170 mg/dL 70-110 H Lab Interpretation (test cod e = 20522-5) Abnormal [facility] GLUCOSE (AUTOMATED)2021-07-05 22:49:05* Test Item Value Reference Range Interpretation Comme nts POCT GLU (test code = 2217732532) 185 mg/dL 70-110 H Lab Interpretation (test cod e = 25816-8) Abnormal [facility] GLUCOSE (AUTOMATED)2021-07-05 11:56:21* Test Item Value Reference Range Interpretation Comme nts POCT GLU (test code = 6276275143) 167 mg/dL 70-110 H Lab Interpretation (test cod e = 90671-2) Abnormal [facility] GLUCOSE (AUTOMATED)2021-07-05 11:56:21* Test Item Value Reference Range Interpretation Comme nts POCT GLU (test code = 4717005928) 167 mg/dL 70-110 H Lab Interpretation (test cod e = 99367-8) Abnormal [facility] GLUCOSE (AUTOMATED)2021-07-05 11:56:21* Test Item Value Reference Range Interpretation Comme nts POCT GLU (test code = 3312997194) 167 mg/dL 70-110 H Lab Interpretation (test cod e = 06254-0) Abnormal [facility] GLUCOSE (AUTOMATED)2021-07-05 11:56:03* Test Item Value Reference Range Interpretation Comme nts POCT GLU (test code = 3326793968) 109 mg/dL 70-110 Lab Interpretation (test cod e = 61271-4) Normal [facility] GLUCOSE (AUTOMATED)2021-07-05 11:56:03* Test Item Value Reference Range Interpretation Comme nts POCT GLU (test code = 4819781482) 109 mg/dL 70-110 Lab Interpretation (test cod e = 82303-0) Normal [facility] GLUCOSE (AUTOMATED)2021-07-05 11:56:03* Test Item Value Reference Range Interpretation Comme nts POCT GLU (test code = [id number]) 109 mg/dL 70-110 Lab Interpretation (test cod e = 24491-9) [id number] 11:48:19* Test Item Value Reference Range Interpretation Comme nts NT-proBNP (test code = [id number]) 452 pg/mL See_Comment H [Automated message] The system which generated this result transmitted reference range: <=125. The reference range was not used to interpret this result as normal/abnormal. BRYSON (test code = BRYSON) Biotin has been reported to cause a negative bias, interpret results relative to patient's use of biotin. Lab Interpretation (test code = 03144-6) [id number] 11:48:19* Test Item Value Reference Range Interpretation Comme nts NT-proBNP (test code = [id number]) 452 pg/mL See_Comment H [Automated message] The system which generated this result transmitted reference range: <=125. The reference range was not used to interpret this result as normal/abnormal. BRYSON (test code = BRYSON) Biotin has been reported to cause a negative bias, interpret results relative to patient's use of biotin. Lab Interpretation (test code = 25362-1) [facility] [id number] 11:48:19* Test Item Value Reference Range Interpretation Comme nts NT-proBNP (test code = 5005295120) 452 pg/mL See_Comment H [Automated message] The system which generated this result transmitted reference range: <=125. The reference range was not used to interpret this result as normal/abnormal. BRYSON (test code = BRYSON) Biotin has been reported to cause a negative bias, interpret results relative to patient's use of biotin. Lab Interpretation (test code = 38286-4) [facility] Test Item Value Reference Range Interpretation Comme nts MAGNESIUM (test code = 5661824587) 2.1 mg/dL 1.7-2.4 Lab Interpretation (test cod e = 83821-6) Normal [facility]2021-09-28 11:42:19* Test Item Value Reference Range Interpretation Comme nts MAGNESIUM (test code = 5270074831) 2.1 mg/dL 1.7-2.4 Lab Interpretation (test cod e = 58684-4) [facility] 11:42:19* Test Item Value Reference Range Interpretation Comme nts MAGNESIUM (test code = 8450086763) 2.1 mg/dL 1.7-2.4 Lab Interpretation (test cod e = 30247-9) [facility] ([id number])2021-07-05 11:41:59* Test Item Value Reference Range Interpretation Comme nts NA (test code = 1265351419) 136 mmol/L 135-145 K (test code = 4314174811) 3.8 mmol/L 3.5-5.0 CL (test code = 1047380935) 107 mmol/L 98-108 CO2 TOTAL (test code = 4233480300) 19 mmol/L 23-31 L AGAP (test code = 9242309542) 2-16 BUN (test code = 3526240316) 14 mg/dL 7-23 GLUCOSE (test code = 4967957519) 152 mg/dL 70-110 H CREATININE (test code = 9407325156) 0.82 mg/dL 0.60-1.25 TOTAL BILI (test code = 2612632923) 0.4 mg/dL 0.1-1.1 CALCIUM (test code = 5213887825) 8.2 mg/dL 8.6-10.6 L T PROTEIN (test code = 7821661595) 5.9 g/dL 6.3-8.2 L ALBUMIN (test code = 3698706578) 2.9 g/dL 3.5-5.0 L ALK PHOS (test code = 2452152389) 97 U/L 34-122 ALTv (test code = 1742-6) 17 U/L 5-50 AST(SGOT) (test code = 4725664895) 25 U/L 13-40 eGFR (test code = 9838456769) mL/min/1.73m2 BRYSON (test code = BRYSON) Association [...] imaging tests). Lab Interpretation (test code = 79718-3) Abnormal [facility]. METABOLIC PANEL ([id number])2021-07-05 11:41:59* Test Item Value Reference Range Interpretation Comme nts NA (test code = 4129305125) 136 mmol/L 135-145 K (test code = 5241798516) 3.8 mmol/L 3.5-5.0 CL (test code = 8268466953) 107 mmol/L 98-108 CO2 TOTAL (test code = 9114129129) 19 mmol/L 23-31 L AGAP (test code = 5134009233) 2-16 BUN (test code = 5294349039) 14 mg/dL 7-23 GLUCOSE (test code = 4707233508) 152 mg/dL 70-110 H CREATININE (test code = 7553377251) 0.82 mg/dL 0.60-1.25 TOTAL BILI (test code = 3294409379) 0.4 mg/dL 0.1-1.1 CALCIUM (test code = 1496617976) 8.2 mg/dL 8.6-10.6 L T PROTEIN (test code = 3104985606) 5.9 g/dL 6.3-8.2 L ALBUMIN (test code = 6076024673) 2.9 g/dL 3.5-5.0 L ALK PHOS (test code = 8543994340) 97 U/L 34-122 ALTv (test code = 1742-6) 17 U/L 5-50 AST(SGOT) (test code = 0286195737) 25 U/L 13-40 eGFR (test code = 7267402274) mL/min/1.73m2 BRYSON (test code = BRYSON) Association [...] imaging tests). Lab Interpretation (test code = 89647-4) [facility] ([id number])2021-07-05 11:41:59* Test Item Value Reference Range Interpretation Comme nts NA (test code = 5768035761) 136 mmol/L 135-145 K (test code = 0801368342) 3.8 mmol/L 3.5-5.0 CL (test code = 2650048490) 107 mmol/L 98-108 CO2 TOTAL (test code = 8991267730) 19 mmol/L 23-31 L AGAP (test code = 6356377667) 2-16 BUN (test code = 2914639087) 14 mg/dL 7-23 GLUCOSE (test code = 9813679955) 152 mg/dL 70-110 H CREATININE (test code = 4700893780) 0.82 mg/dL 0.60-1.25 TOTAL BILI (test code = 8588416987) 0.4 mg/dL 0.1-1.1 CALCIUM (test code = 2160709064) 8.2 mg/dL 8.6-10.6 L T PROTEIN (test code = 0906930267) 5.9 g/dL 6.3-8.2 L ALBUMIN (test code = 9911004872) 2.9 g/dL 3.5-5.0 L ALK PHOS (test code = 6610256360) 97 U/L 34-122 ALTv (test code = 1742-6) 17 U/L 5-50 AST(SGOT) (test code = 3701961882) 25 U/L 13-40 eGFR (test code = 0499210828) mL/min/1.73m2 BRYSON (test code = BRYSON) Association [...] imaging tests). Lab Interpretation (test code = 96054-8) Abnormal [facility] WITH [id number] 11:13:33* Test Item Value Reference Range Interpretation Comme nts WBC (test code = 6690-2) See_Comment H [Automated LicenseMetricsa Yappe] The system which generated this result transmitted [...] 34.2 g/dL 31.2-35.0 RDW-SD (test code = 50527-0) 42.6 fL 38.5-51.6 RDW-CV (test code = 788-0) 12.3 % 12.1-15.4 PLT (test code = 777-3) See_Comment [Automated messa ge] The system which generated this result transmitted reference range: 150 - 328 10*3/?L. The reference range was not used to interpret this result as normal/abnormal. MPV (test code = 22309-7) 12.5 fL 9.8-13.0 NRBC/100 WBC (test code = 3235563247) See_Comment [Automated [employer] ssage] The system which generated this result transmitted reference range: 0.0 - 10.0 /100 WBCs. The reference range was not used to interpret this result as normal/abnormal. NRBC x10^3 (test code = 4954921962) <0.01 See_Comment [Automated messa ge] The system which generated this result transmitted reference range: 10*3/?L. The reference range was not used to interpret this result as normal/abnormal. GRAN MAT (NEUT) % (test code = 770-8) 72.3 % IMM GRAN % (test code = 4519391485) 0.50 % LYMPH % (test code = 736-9) 14.0 % MONO % (test code = 5905-5) 11.4 % EOS % (test code = 713-8) 1.4 % BASO % (test code = 706-2) 0.4 % GRAN MAT x10^3(ANC) (test code = 8743579683) 7.97 10*3/uL 1.99-6.95 H IMM GRAN x10^3 (test code = 3167674186) 0.05 10*3/uL 0.00-0.06 LYMPH x10^3 (test code = 731-0) 1.54 10*3/uL 1.09-3.23 MONO x10^3 (test code = 742-7) 1.26 10*3/uL 0.36-1.02 H EOS x10^3 (test code = 711-2) 0.15 10*3/uL 0.06-0.53 BASO x10^3 (test code = 704-7) 0.04 10*3/uL 0.01-0.09 Lab Interpretation (test code = 50948-4) Abnormal [facility] WITH [id number] 11:13:33* Test Item Value Reference Range Interpretation [...] 34.2 g/dL 31.2-35.0 RDW-SD (test code = 86214-0) 42.6 fL 38.5-51.6 RDW-CV (test code = 788-0) 12.3 % 12.1-15.4 PLT (test code = 777-3) See_Comment [Automated messa ge] The system which generated this result transmitted reference range: 150 - 328 10*3/?L. The reference range was not used to interpret this result as normal/abnormal. MPV (test code = 82532-6) 12.5 fL 9.8-13.0 NRBC/100 WBC (test code = 5765642124) See_Comment [Automated me ssage] The system which generated this result transmitted reference range: 0.0 - 10.0 /100 WBCs. The reference range was not used to interpret this result as normal/abnormal. NRBC x10^3 (test code = 2062333528) <0.01 See_Comment [Automated messa ge] The system which generated this result transmitted reference range: 10*3/?L. The reference range was not used to interpret this result as normal/abnormal. GRAN MAT (NEUT) % (test code = 770-8) 72.3 % IMM GRAN % (test code = 8790667532) 0.50 % LYMPH % (test code = 736-9) 14.0 % MONO % (test code = 5905-5) 11.4 % EOS % (test code = 713-8) 1.4 % BASO % (test code = 706-2) 0.4 % GRAN MAT x10^3(ANC) (test code = 6496719700) 7.97 10*3/uL 1.99-6.95 H IMM GRAN x10^3 (test code = 6050605436) 0.05 10*3/uL 0.00-0.06 LYMPH x10^3 (test code = 731-0) 1.54 10*3/uL 1.09-3.23 MONO x10^3 (test code = 742-7) 1.26 10*3/uL 0.36-1.02 H EOS x10^3 (test code = 711-2) 0.15 10*3/uL 0.06-0.53 BASO x10^3 (test code = 704-7) 0.04 10*3/uL 0.01-0.09 Lab Interpretation (test code = 00450-3) Abnormal [facility] WITH [id number] 11:13:33* Test Item Value Reference Range Interpretation [...] 34.2 g/dL 31.2-35.0 RDW-SD (test code = 17046-7) 42.6 fL 38.5-51.6 RDW-CV (test code = 788-0) 12.3 % 12.1-15.4 PLT (test code = 777-3) See_Comment [Automated messa ge] The system which generated this result transmitted reference range: 150 - 328 10*3/?L. The reference range was not used to interpret this result as normal/abnormal. MPV (test code = 79203-9) 12.5 fL 9.8-13.0 NRBC/100 WBC (test code = 4559325014) See_Comment [Automated [employer] ssage] The system which generated this result transmitted reference range: 0.0 - 10.0 /100 WBCs. The reference range was not used to interpret this result as normal/abnormal. NRBC x10^3 (test code = 9019675319) <0.01 See_Comment [Automated messa ge] The system which generated this result transmitted reference range: 10*3/?L. The reference range was not used to interpret this result as normal/abnormal. GRAN MAT (NEUT) % (test code = 770-8) 72.3 % IMM GRAN % (test code = 3077040602) 0.50 % LYMPH % (test code = 736-9) 14.0 % MONO % (test code = 5905-5) 11.4 % EOS % (test code = 713-8) 1.4 % BASO % (test code = 706-2) 0.4 % GRAN MAT x10^3(ANC) (test code = 1401286847) 7.97 10*3/uL 1.99-6.95 H IMM GRAN x10^3 (test code = 4625809681) 0.05 10*3/uL 0.00-0.06 LYMPH x10^3 (test code = 731-0) 1.54 10*3/uL 1.09-3.23 MONO x10^3 (test code = 742-7) 1.26 10*3/uL 0.36-1.02 H EOS x10^3 (test code = 711-2) 0.15 10*3/uL 0.06-0.53 BASO x10^3 (test code = 704-7) 0.04 10*3/uL 0.01-0.09 Lab Interpretation (test code = 41241-3) Abnormal [facility] GLUCOSE (AUTOMATED)2021-07-04 18:13:05* Test Item Value Reference Range Interpretation Comme nts POCT GLU (test code = 5985403092) 237 mg/dL 70-110 H Lab Interpretation (test cod e = 07566-0) Abnormal [facility] GLUCOSE (AUTOMATED)2021-07-04 18:13:05* Test Item Value Reference Range Interpretation Comme nts POCT GLU (test code = 0800973838) 237 mg/dL 70-110 H Lab Interpretation (test cod e = 20922-2) Abnormal [facility] GLUCOSE (AUTOMATED)2021-07-04 18:13:05* Test Item Value Reference Range Interpretation Comme nts POCT GLU (test code = 1607291700) 237 mg/dL 70-110 H Lab Interpretation (test cod e = 15961-1) [facility] - Draw no more than 60 minutes before the 1200 dose.2021-07-04 17:26:07* Test Item Value Reference Range Interpretation Comme nts VANCO TROUGH (test code = 1889170634) 9.1 ug/mL 10.0-20.0 L BRYSON (test code = BRYSON) Toxic Range: ?>20 ug/mL 15-20 ug/mL is recommended for severe infection or when Vancomycin ELISE is greater than or equal to 2. Lab Interpretation (test code = 23943-4) [facility] T[facility] Level - Draw no more than 60 minutes before the 1200 dose.2021-07-04 17:26:07* Test Item Value Reference Range Interpretation Comme nts VANCO TROUGH (test code = 2317169157) 9.1 ug/mL 10.0-20.0 L BRYSON (test code = BRYSON) Toxic Range: ?>20 ug/mL 15-20 ug/mL is recommended for severe infection or when Vancomycin ELISE is greater than or equal to 2. Lab Interpretation (test code = 85032-1) [facility]normal [facility] Trough Level - Draw no more than 60 minutes before the 1200 dose.2021-07-04 17:26:07* Test Item Value Reference Range Interpretation Comme nts VANCO TROUGH (test code = 9307132470) 9.1 ug/mL 10.0-20.0 L BRYSON (test code = BRYSON) Toxic Range: ?>20 ug/mL 15-20 ug/mL is recommended for severe infection or when Vancomycin ELISE is greater than or equal to 2. Lab Interpretation (test code = 42446-7) [facility] [id number] 15:31:30* Test Item Value Reference Range Interpretation Comme nts CRP (test code = 3389112384) 12.0 mg/dL <0.8 H Lab Interpretation (test cod e = 45822-0) Abnormal [facility]-REACTIVE [id number] 15:31:30* Test Item Value Reference Range Interpretation Comme nts CRP (test code = 2149363246) 12.0 mg/dL <0.8 H Lab Interpretation (test cod e = 80927-5) Abnormal [facility]-REACTIVE [id number] 15:31:30* Test Item Value Reference Range Interpretation Comme nts CRP (test code = 6333469514) 12.0 mg/dL <0.8 H Lab Interpretation (test cod e = 61757-5) Abnormal [facility] GLUCOSE (AUTOMATED)2021-07-04 14:30:27* Test Item Value Reference Range Interpretation Comme nts POCT GLU (test code = 2529268664) 190 mg/dL 70-110 H Lab Interpretation (test cod e = 23493-7) Abnormal [facility] GLUCOSE (AUTOMATED)2021-07-04 14:30:27* Test Item Value Reference Range Interpretation Comme nts POCT GLU (test code = 8216626116) 190 mg/dL 70-110 H Lab Interpretation (test cod e = 77715-1) Abnormal [facility] GLUCOSE (AUTOMATED)2021-07-04 14:30:27* Test Item Value Reference Range Interpretation Comme nts POCT GLU (test code = 8824137209) 190 mg/dL 70-110 H Lab Interpretation (test cod e = 93909-2) [facility], [id number] 14:26:51* Test Item Value Reference Range Interpretation Comme nts VIT D 25OH (test code = 52660-1) 13 ng/mL 25-80 L BRYSON (test code = BRYSON) Deficiency: <20 ng/mLInsufficiency: 20-24 ng/mLOptimal: 25-80 ng/mL Lab Interpretation (test code = 18812-1) [facility], [id number] 14:26:51* Test Item Value Reference Range Interpretation Comme nts VIT D 25OH (test code = 85624-4) 13 ng/mL 25-80 L BRYSON (test code = BRYSON) Deficiency: <20 ng/mLInsufficiency: 20-24 ng/mLOptimal: 25-80 ng/mL Lab Interpretation (test code = 43001-3) [facility], [id number] 14:26:51* Test Item Value Reference Range Interpretation Comme nts VIT D 25OH (test code = 31700-6) 13 ng/mL 25-80 L BRYSON (test code = BRYSON) Deficiency: <20 ng/mLInsufficiency: 20-24 ng/mLOptimal: 25-80 ng/mL Lab Interpretation (test code = 28872-1) Abnormal [facility] WITH [id number] 13:47:46* Test Item Value Reference Range Interpretation Comme nts WBC (test code = 6690-2) See_Comment H [Automated LicenseMetricsa ge] The system which generated this result [...] 34.0 g/dL 31.2-35.0 RDW-SD (test code = 50673-5) 42.5 fL 38.5-51.6 RDW-CV (test code = 788-0) 12.4 % 12.1-15.4 PLT (test code = 777-3) See_Comment [Automated LicenseMetricsa ge] The system which generated this result transmitted reference range: 150 - 328 10*3/?L. The reference range was not used to interpret this result as normal/abnormal. MPV (test code = 63079-5) 13.5 fL 9.8-13.0 H IPF % (test code = 9082490801) 9.6 % 1.2-10.7 Platelet count measured by fluorescence method. NRBC/100 WBC (test code = 8767128254) See_Comment [Automated [employer] ssage] The system which generated this result transmitted reference range: 0.0 - 10.0 /100 WBCs. The reference range was not used to interpret this result as normal/abnormal. NRBC x10^3 (test code = 8305548432) <0.01 See_Comment [Automated messa ge] The system which generated this result transmitted reference range: 10*3/?L. The reference range was not used to interpret this result as normal/abnormal. GRAN MAT (NEUT) % (test code = 770-8) 71.3 % IMM GRAN % (test code = 0771209056) 0.60 % LYMPH % (test code = 736-9) 15.8 % MONO % (test code = 5905-5) 11.2 % EOS % (test code = 713-8) 0.8 % BASO % (test code = 706-2) 0.3 % GRAN MAT x10^3(ANC) (test code = 3708110761) 8.92 10*3/uL 1.99-6.95 H IMM GRAN x10^3 (test code = 3905415630) 0.07 10*3/uL 0.00-0.06 H LYMPH x10^3 (test code = 731-0) 1.97 10*3/uL 1.09-3.23 MONO x10^3 (test code = 742-7) 1.40 10*3/uL 0.36-1.02 H EOS x10^3 (test code = 711-2) 0.10 10*3/uL 0.06-0.53 BASO x10^3 (test code = 704-7) 0.04 10*3/uL 0.01-0.09 Lab Interpretation (test code = 77404-9) Abnormal [facility] WITH [id number] 13:47:46* Test Item Value Reference Range Interpretation [...] 34.0 g/dL 31.2-35.0 RDW-SD (test code = 52326-5) 42.5 fL 38.5-51.6 RDW-CV (test code = 788-0) 12.4 % 12.1-15.4 PLT (test code = 777-3) See_Comment [Automated LicenseMetricsa ge] The system which generated this result transmitted reference range: 150 - 328 10*3/?L. The reference range was not used to interpret this result as normal/abnormal. MPV (test code = 31803-2) 13.5 fL 9.8-13.0 H IPF % (test code = 5005528029) 9.6 % 1.2-10.7 Platelet count measured by fluorescence method. NRBC/100 WBC (test code = 8275815866) See_Comment [Automated [employer] ssage] The system which generated this result transmitted reference range: 0.0 - 10.0 /100 WBCs. The reference range was not used to interpret this result as normal/abnormal. NRBC x10^3 (test code = 2502334224) <0.01 See_Comment [Automated LicenseMetricsa ge] The system which generated this result transmitted reference range: 10*3/?L. The reference range was not used to interpret this result as normal/abnormal. GRAN MAT (NEUT) % (test code = 770-8) 71.3 % IMM GRAN % (test code = 9763117892) 0.60 % LYMPH % (test code = 736-9) 15.8 % MONO % (test code = 5905-5) 11.2 % EOS % (test code = 713-8) 0.8 % BASO % (test code = 706-2) 0.3 % GRAN MAT x10^3(ANC) (test code = 2414970990) 8.92 10*3/uL 1.99-6.95 H IMM GRAN x10^3 (test code = 1778310235) 0.07 10*3/uL 0.00-0.06 H LYMPH x10^3 (test code = 731-0) 1.97 10*3/uL 1.09-3.23 MONO x10^3 (test code = 742-7) 1.40 10*3/uL 0.36-1.02 H EOS x10^3 (test code = 711-2) 0.10 10*3/uL 0.06-0.53 BASO x10^3 (test code = 704-7) 0.04 10*3/uL 0.01-0.09 Lab Interpretation (test code = 43853-9) Abnormal [facility] WITH [id number] 13:47:46* Test Item Value Reference Range Interpretation [...] 34.0 g/dL 31.2-35.0 RDW-SD (test code = 26326-0) 42.5 fL 38.5-51.6 RDW-CV (test code = 788-0) 12.4 % 12.1-15.4 PLT (test code = 777-3) See_Comment [Automated messa ge] The system which generated this result transmitted reference range: 150 - 328 10*3/?L. The reference range was not used to interpret this result as normal/abnormal. MPV (test code = 00945-6) 13.5 fL 9.8-13.0 H IPF % (test code = 4582565077) 9.6 % 1.2-10.7 Platelet count measured by fluorescence method. NRBC/100 WBC (test code = 4859442785) See_Comment [Automated me ssage] The system which generated this result transmitted reference range: 0.0 - 10.0 /100 WBCs. The reference range was not used to interpret this result as normal/abnormal. NRBC x10^3 (test code = 8764496074) <0.01 See_Comment [Automated messa ge] The system which generated this result transmitted reference range: 10*3/?L. The reference range was not used to interpret this result as normal/abnormal. GRAN MAT (NEUT) % (test code = 770-8) 71.3 % IMM GRAN % (test code = 9752959107) 0.60 % LYMPH % (test code = 736-9) 15.8 % MONO % (test code = 5905-5) 11.2 % EOS % (test code = 713-8) 0.8 % BASO % (test code = 706-2) 0.3 % GRAN MAT x10^3(ANC) (test code = 2041433253) 8.92 10*3/uL 1.99-6.95 H IMM GRAN x10^3 (test code = 4724459049) 0.07 10*3/uL 0.00-0.06 H LYMPH x10^3 (test code = 731-0) 1.97 10*3/uL 1.09-3.23 MONO x10^3 (test code = 742-7) 1.40 10*3/uL 0.36-1.02 H EOS x10^3 (test code = 711-2) 0.10 10*3/uL 0.06-0.53 BASO x10^3 (test code = 704-7) 0.04 10*3/uL 0.01-0.09 Lab Interpretation (test code = 44041-4) [facility] [id number] 13:33:20* Test Item Value Reference Range Interpretation Comme nts NT-proBNP (test code = 6697425364) 291 pg/mL See_Comment H [Automated message] The system which generated this result transmitted reference range: <=125. The reference range was not used to interpret this result as normal/abnormal. BRYSON (test code = BRYSON) Biotin has been reported to cause a negative bias, interpret results relative to patient's use of biotin. Lab Interpretation (test code = 32102-4) [facility] [id number] 13:33:20* Test Item Value Reference Range Interpretation Comme nts NT-proBNP (test code = 4988752613) 291 pg/mL See_Comment H [Automated message] The system which generated this result transmitted reference range: <=125. The reference range was not used to interpret this result as normal/abnormal. BRYSON (test code = BRYSON) Biotin has been reported to cause a negative bias, interpret results relative to patient's use of biotin. Lab Interpretation (test code = 30087-3) [facility] [id number]-[id number] 13:33:20* Test Item Value Reference Range Interpretation Comme nts NT-proBNP (test code = 7798060811) 291 pg/mL See_Comment H [Automated message] The system which generated this result transmitted reference range: <=125. The reference range was not used to interpret this result as normal/abnormal. BRYSON (test code = BRYSON) Biotin has been reported to cause a negative bias, interpret results relative to patient's use of biotin. Lab Interpretation (test code = 19221-0) Abnormal [facility]2021-09-27 13:18:00* Test Item Value Reference Range Interpretation Comme nts MAGNESIUM (test code = 4448135580) 2.1 mg/dL 1.7-2.4 Lab Interpretation (test cod e = 31851-8) Normal [facility]2021-09-27 13:18:00* Test Item Value Reference Range Interpretation Comme nts MAGNESIUM (test code = 8391840078) 2.1 mg/dL 1.7-2.4 Lab Interpretation (test cod e = 82536-3) Normal [facility]2021-09-27 13:18:00* Test Item Value Reference Range Interpretation Comme nts MAGNESIUM (test code = 6583641744) 2.1 mg/dL 1.7-2.4 Lab Interpretation (test cod e = 43217-2) Normal [facility]. METABOLIC PANEL (79306)2021-07-04 13:17:39* Test Item Value Reference Range Interpretation Comme nts NA (test code = 9371970375) 135 mmol/L 135-145 K (test code = 2775065467) 3.8 mmol/L 3.5-5.0 CL (test code = 1320934035) 106 mmol/L 98-108 CO2 TOTAL (test code = 3755220258) 22 mmol/L 23-31 L AGAP (test code = 0737426082) 2-16 BUN (test code = 7930045714) 14 mg/dL 7-23 GLUCOSE (test code = 8657665512) 151 mg/dL 70-110 H CREATININE (test code = 3179012433) 0.78 mg/dL 0.60-1.25 TOTAL BILI (test code = 6075901688) 0.5 mg/dL 0.1-1.1 CALCIUM (test code = 4607609590) 8.1 mg/dL 8.6-10.6 L T PROTEIN (test code = 7865873624) 5.6 g/dL 6.3-8.2 L ALBUMIN (test code = 7796347340) 2.7 g/dL 3.5-5.0 L ALK PHOS (test code = 6400348276) 75 U/L 34-122 ALTv (test code = 1742-6) 13 U/L 5-50 AST(SGOT) (test code = 3711810813) 20 U/L 13-40 eGFR (test code = 2049854249) mL/min/1.73m2 BRYSON (test code = BRYSON) Association [...] imaging tests). Lab Interpretation (test code = 73521-6) Abnormal [facility]. METABOLIC PANEL (09825)2021-07-04 13:17:39* Test Item Value Reference Range Interpretation Comme nts NA (test code = 9172336580) 135 mmol/L 135-145 K (test code = 7331811622) 3.8 mmol/L 3.5-5.0 CL (test code = 5944358949) 106 mmol/L 98-108 CO2 TOTAL (test code = 8981221334) 22 mmol/L 23-31 L AGAP (test code = 0609134219) 2-16 BUN (test code = 1534139663) 14 mg/dL 7-23 GLUCOSE (test code = 0667736036) 151 mg/dL 70-110 H CREATININE (test code = 7514592833) 0.78 mg/dL 0.60-1.25 TOTAL BILI (test code = 7491318290) 0.5 mg/dL 0.1-1.1 CALCIUM (test code = 7901135508) 8.1 mg/dL 8.6-10.6 L T PROTEIN (test code = 6164743291) 5.6 g/dL 6.3-8.2 L ALBUMIN (test code = 0283563876) 2.7 g/dL 3.5-5.0 L ALK PHOS (test code = 8243950328) 75 U/L 34-122 ALTv (test code = 1742-6) 13 U/L 5-50 AST(SGOT) (test code = 0049277387) 20 U/L 13-40 eGFR (test code = 2903413782) mL/min/1.73m2 BRYSON (test code = BRYSON) Association [...] imaging tests). Lab Interpretation (test code = 87404-7) Abnormal [facility]. METABOLIC PANEL (63768)2021-07-04 13:17:39* Test Item Value Reference Range Interpretation Comme nts NA (test code = 2814217978) 135 mmol/L 135-145 K (test code = 2166832224) 3.8 mmol/L 3.5-5.0 CL (test code = 9154238229) 106 mmol/L 98-108 CO2 TOTAL (test code = 7960901375) 22 mmol/L 23-31 L AGAP (test code = 9816170134) 2-16 BUN (test code = 5960249441) 14 mg/dL 7-23 GLUCOSE (test code = 5945538681) 151 mg/dL 70-110 H CREATININE (test code = 0337269735) 0.78 mg/dL 0.60-1.25 TOTAL BILI (test code = 2630076105) 0.5 mg/dL 0.1-1.1 CALCIUM (test code = 9365914410) 8.1 mg/dL 8.6-10.6 L T PROTEIN (test code = 6559477810) 5.6 g/dL 6.3-8.2 L ALBUMIN (test code = 5700335453) 2.7 g/dL 3.5-5.0 L ALK PHOS (test code = 0799452010) 75 U/L 34-122 ALTv (test code = 1742-6) 13 U/L 5-50 AST(SGOT) (test code = 4392769418) 20 U/L 13-40 eGFR (test code = 2371716295) mL/min/1.73m2 BRYSON (test code = BRYSON) Association [...] imaging tests). Lab Interpretation (test code = 72429-4) [facility] Test Item Value Reference Range Interpretation Comme nts PHOSPHORUS (test code = 5334965745) 3.4 mg/dL 2.5-5.0 Lab Interpretation (test cod e = 32848-9) [facility] 13:17:19* Test Item Value Reference Range Interpretation Comme nts PHOSPHORUS (test code = 4625520465) 3.4 mg/dL 2.5-5.0 Lab Interpretation (test cod e = 01336-7) Normal [facility]2021-09-27 13:17:19* Test Item Value Reference Range Interpretation Comme nts PHOSPHORUS (test code = 5787730886) 3.4 mg/dL 2.5-5.0 Lab Interpretation (test cod e = 91656-0) Normal [facility] GLUCOSE (AUTOMATED)2021-07-04 12:05:44* Test Item Value Reference Range Interpretation Comme nts POCT GLU (test code = 7827164166) 211 mg/dL 70-110 H Lab Interpretation (test cod e = 43716-9) Abnormal [facility] GLUCOSE (AUTOMATED)2021-07-04 12:05:44* Test Item Value Reference Range Interpretation Comme nts POCT GLU (test code = 0512998897) 211 mg/dL 70-110 H Lab Interpretation (test cod e = 41741-9) Abnormal [facility] GLUCOSE (AUTOMATED)2021-07-04 12:05:44* Test Item Value Reference Range Interpretation Comme nts POCT GLU (test code = 8436999720) 211 mg/dL 70-110 H Lab Interpretation (test cod e = 11442-6) Abnormal [facility] GLUCOSE (AUTOMATED)2021-07-04 12:05:22* Test Item Value Reference Range Interpretation Comme nts POCT GLU (test code = 5236624477) 124 mg/dL 70-110 H Lab Interpretation (test cod e = 85208-9) Abnormal [facility] GLUCOSE (AUTOMATED)2021-07-04 12:05:22* Test Item Value Reference Range Interpretation Comme nts POCT GLU (test code = 3240944925) 124 mg/dL 70-110 H Lab Interpretation (test cod e = 54626-8) Abnormal [facility] GLUCOSE (AUTOMATED)2021-07-04 12:05:22* Test Item Value Reference Range Interpretation Comme nts POCT GLU (test code = 2952191849) 124 mg/dL 70-110 H Lab Interpretation (test cod e = 03409-3) Abnormal [facility] GLUCOSE (AUTOMATED)2021-07-04 12:04:47* Test Item Value Reference Range Interpretation Comme nts POCT GLU (test code = 8170284895) 194 mg/dL 70-110 H Lab Interpretation (test cod e = 50186-0) Abnormal [facility] GLUCOSE (AUTOMATED)2021-07-04 12:04:47* Test Item Value Reference Range Interpretation Comme nts POCT GLU (test code = 5701625976) 194 mg/dL 70-110 H Lab Interpretation (test cod e = 26326-1) Abnormal [facility] GLUCOSE (AUTOMATED)2021-07-04 12:04:47* Test Item Value Reference Range Interpretation Comme nts POCT GLU (test code = 0478084942) 194 mg/dL 70-110 H Lab Interpretation (test cod e = 74454-4) Abnormal [facility] GLUCOSE (AUTOMATED)2021-07-04 12:04:19* Test Item Value Reference Range Interpretation Comme nts POCT GLU (test code = 9720984761) 271 mg/dL 70-110 H Lab Interpretation (test cod e = 91806-6) Abnormal [facility] GLUCOSE (AUTOMATED)2021-07-04 12:04:19* Test Item Value Reference Range Interpretation Comme nts POCT GLU (test code = 7674246737) 271 mg/dL 70-110 H Lab Interpretation (test cod e = 59649-7) Abnormal [facility] GLUCOSE (AUTOMATED)2021-07-04 12:04:19* Test Item Value Reference Range Interpretation Comme nts POCT GLU (test code = 2094939952) 271 mg/dL 70-110 H Lab Interpretation (test cod e = 19952-8) [facility] [id number] 20:51:33* Test Item Value Reference Range Interpretation Comme nts VIT B12 (test code = 6068157062) 768 pg/mL 240-930 BRYSON (test code = BRYSON) Biotin has been reported to cause a positive bias, interpret results relative to patient's use of biotin. Lab Interpretation (test code = 54398-6) [facility], [id number] 20:51:33* Test Item Value Reference Range Interpretation Comme nts VIT B12 (test code = 9010503440) 768 pg/mL 240-930 BRYSON (test code = BRYSON) Biotin has been reported to cause a positive bias, interpret results relative to patient's use of biotin. Lab Interpretation (test code = 24636-6) [facility], [id number] 20:51:33* Test Item Value Reference Range Interpretation Comme nts VIT B12 (test code = 3775269587) 768 pg/mL 240-930 BRYSON (test code = BRYSON) Biotin has been reported to cause a positive bias, interpret results relative to patient's use of biotin. Lab Interpretation (test code = 34282-2) [facility]2021-[facility]-26 20:34:29* Test Item Value Reference Range Interpretation Comme nts Procalcitonin (test code = 9402054671) 0.09 ng/mL <0.07 H BRYSON (test code [...] lung abscess/empyema. For further information please refer to:[email or web address] Lab Interpretation (test code = 17408-1) [facility]2021-[facility]-26 20:34:29* Test Item Value Reference Range Interpretation Comme candelario Procalcitonin (test code = 7836496682) 0.09 ng/mL <0.07 H BRYSON (test code [...] lung abscess/empyema. For further information please refer to:[email or web address] Lab Interpretation (test code = 88402-1) [facility]2021-[facility]-26 20:34:29* Test Item Value Reference Range Interpretation Comme nts Procalcitonin (test code = 4980522620) 0.09 ng/mL <0.07 H BRYSON (test code [...] lung abscess/empyema. For further information please refer to:[email or web address] Lab Interpretation (test code = 41525-8) Abnormal [facility] [id number] 17:16:42* Test Item Value Reference Range Interpretation Comme nts IRON (test code = 9946799888) 31 ug/dL 50-160 L TIBC (test code = 6346939813) 211 ug/dL 250-410 L % FE SAT (test code = 0992893943) 15 % 20-50 L Lab Interpretation (test cod e = 68001-0) Abnormal [facility] [id number] 17:16:42* Test Item Value Reference Range Interpretation Comme nts IRON (test code = 1084526957) 31 ug/dL 50-160 L TIBC (test code = 1737225455) 211 ug/dL 250-410 L % FE SAT (test code = 9780737931) 15 % 20-50 L Lab Interpretation (test cod e = 40649-2) [facility] [id number] 17:16:42* Test Item Value Reference Range Interpretation Comme nts IRON (test code = 0708250325) 31 ug/dL 50-160 L TIBC (test code = 0922978250) 211 ug/dL 250-410 L % FE SAT (test code = 9105964265) 15 % 20-50 L Lab Interpretation (test cod e = 93271-2) [facility]normal [facility] HospitalPROT[facility] / [id number] 15:25:33* Test Item Value Reference Range Interpretation Comme nts PROTIME PATIENT (test code = 5964-2) See_Comment [Automated LicenseMetricsa Yappe] The system which generated this result transmitted reference range: 12.0 - 14.7 Seconds. The reference range was not used to interpret this result as normal/abnormal. INR (test code = 6301-6) Normal INR <1.1; Warfarin Therapeutic range 2.0 to 3.0 or 2.5 to 3.5, depending upon the indications. Lab Interpretation (test code = 20086-0) Normal [facility] HospitalPROT[facility] / [id number] 15:25:33* Test Item Value Reference Range Interpretation Comme nts PROTIME PATIENT (test code = 5964-2) See_Comment [Automated LicenseMetricsa Yappe] The system which generated this result transmitted reference range: 12.0 - 14.7 Seconds. The reference range was not used to interpret this result as normal/abnormal. INR (test code = 6301-6) Normal INR <1.1; Warfarin Therapeutic range 2.0 to 3.0 or 2.5 to 3.5, depending upon the indications. Lab Interpretation (test code = 04614-0) [facility] / [id number] 15:25:33* Test Item Value Reference Range Interpretation Comme nts PROTIME PATIENT (test code = 5964-2) See_Comment [Automated LicenseMetricsa Yappe] The system which generated this result transmitted reference range: 12.0 - 14.7 Seconds. The reference range was not used to interpret this result as normal/abnormal. INR (test code = 6301-6) Normal INR <1.1; Warfarin Therapeutic range 2.0 to 3.0 or 2.5 to 3.5, depending upon the indications. Lab Interpretation (test code = 43255-3) Normal [facility]2021-09-26 10:28:31* Test Item Value Reference Range Interpretation Comme nts ESR (test code = 8387705065) See_Comment H [Automated messa ge] The system which generated this result transmitted reference range: 0 - 10 mm/HR. The reference range was not used to interpret this result as normal/abnormal. Lab Interpretation (test code = 57972-7) Abnormal [facility]2021-09-26 10:28:31* Test Item Value Reference Range Interpretation Comme nts ESR (test code = 7954795674) See_Comment H [Automated messa ge] The system which generated this result transmitted reference range: 0 - 10 mm/HR. The reference range was not used to interpret this result as normal/abnormal. Lab Interpretation (test code = 20642-0) Abnormal [facility] [id number] 10:28:31* Test Item Value Reference Range Interpretation Comme nts ESR (test code = 4124904784) See_Comment H [Automated messa ge] The system which generated this result transmitted reference range: 0 - 10 mm/HR. The reference range was not used to interpret this result as normal/abnormal. Lab Interpretation (test code = 54630-4) Abnormal [facility] HospitalFERRITIN [id number] 09:49:36* Test Item Value Reference Range Interpretation Comme nts FERRITIN (test code = 9530508387) 119.0 ng/mL 18.0-464.0 BRYSON (test code = BRYSON) Biotin has been reported to cause a negative bias, interpret results relative to patient's use of biotin. Lab Interpretation (test code = 66820-2) Normal [facility] [id number] 09:49:36* Test Item Value Reference Range Interpretation Comme nts FERRITIN (test code = 4802315719) 119.0 ng/mL 18.0-464.0 BRYSON (test code = BRYSON) Biotin has been reported to cause a negative bias, interpret results relative to patient's use of biotin. Lab Interpretation (test code = 94956-8) Normal [facility] [id number] 09:49:36* Test Item Value Reference Range Interpretation Comme nts FERRITIN (test code = 8837427787) 119.0 ng/mL 18.0-464.0 BRYSON (test code = BRYSON) Biotin has been reported to cause a negative bias, interpret results relative to patient's use of biotin. Lab Interpretation (test code = 45550-5) Normal [facility] HospitalTHYROID STIMULATING [id number] 09:45:35 * Test Item Value Reference Range Interpretation Comme nts TSH (test code = 4880145833) See_Comment [Automated messa ge] The system which generated this result transmitted reference range: 0.45 - 4.70 mIU/L. The reference range was not used to interpret this result as normal/abnormal. Lab Interpretation (test code = 36633-8) Normal [facility]TH[facility] STIM[facility]ATING [id number] 09:45:35 * Test Item Value Reference Range Interpretation Comme nts TSH (test code = 0114896824) See_Comment [Automated messa ge] The system which generated this result transmitted reference range: 0.45 - 4.70 mIU/L. The reference range was not used to interpret this result as normal/abnormal. Lab Interpretation (test code = 90909-5) Normal [facility]THY[facility] STIMULATING [id number] 09:45:35 * Test Item Value Reference Range Interpretation Comme nts TSH (test code = 0200567907) See_Comment [Automated messa ge] The system which generated this result transmitted reference range: 0.45 - 4.70 mIU/L. The reference range was not used to interpret this result as normal/abnormal. Lab Interpretation (test code = 16742-0) Normal [facility] HospitalN-TERMINAL [id number] 09:24:29* Test Item Value Reference Range Interpretation Comme nts NT-proBNP (test code = 8516815204) 260 pg/mL See_Comment H [Automated message] The system which generated this result transmitted reference range: <=125. The reference range was not used to interpret this result as normal/abnormal. BRYSON (test code = BRYSON) Biotin has been reported to cause a negative bias, interpret results relative to patient's use of biotin. Lab Interpretation (test code = 32228-4) Abnormal [facility]AL [id number] 09:24:29* Test Item Value Reference Range Interpretation Comme nts NT-proBNP (test code = 7952659870) 260 pg/mL See_Comment H [Automated message] The system which generated this result transmitted reference range: <=125. The reference range was not used to interpret this result as normal/abnormal. BRYSON (test code = BRYSON) Biotin has been reported to cause a negative bias, interpret results relative to patient's use of biotin. Lab Interpretation (test code = 26733-8) Abnormal [facility]MINAL [id number] 09:24:29* Test Item Value Reference Range Interpretation Comme nts NT-proBNP (test code = 0182214839) 260 pg/mL See_Comment H [Automated message] The system which generated this result transmitted reference range: <=125. The reference range was not used to interpret this result as normal/abnormal. BRYSON (test code = BRYSON) Biotin has been reported to cause a negative bias, interpret results relative to patient's use of biotin. Lab Interpretation (test code = 95843-8) [facility]normal [facility]MAGN[facility]IUM2021-09-26 09:14:31* Test Item Value Reference Range Interpretation Comme nts MAGNESIUM (test code = 8175805863) 1.6 mg/dL 1.7-2.4 L Lab Interpretation (test cod e = 21997-1) Abnormal [facility] HospitalLIPID PANEL (39727)(TOTAL CHOLESTEROL, TRIGLYCERIDES, HDL)2021-07-03 09:14:31* Test Item Value Reference Range Interpretation Comme nts CHOL (test code = 0084432508) 215 mg/dL 120-200 H HDL (test code = 2433861856) 41 mg/dL >40 HDLC RATIO (test code = 5822736219) See_Comment H [Automated messa Yappe] The system which generated this result transmitted reference range: <=5.0. The reference range was not used to interpret this result as normal/abnormal. TRIG (test code = 5304461874) 185 mg/dL 30-170 H LDL CHOL (test code = 86651-1) 137 mg/dL See_Comment [Automated messa ge] The system which generated this result transmitted reference range: <=160. The reference range was not used to interpret this result as normal/abnormal. VLDL (test code = 0398388419) 37 mg/dL 5-60 Lab Interpretation (test code = 72778-4) Abnormal [facility]2021-09-26 09:14:31* Test Item Value Reference Range Interpretation Comme nts MAGNESIUM (test code = 1921857019) 1.6 mg/dL 1.7-2.4 L Lab Interpretation (test cod e = 04074-2) Abnormal [facility] HospitalLIP[facility] PANEL (20304)(TOTAL CHOLESTEROL, TRIGLYCERIDES, HDL)2021-07-03 09:14:31* Test Item Value Reference Range Interpretation Comme nts CHOL (test code = 4673675780) 215 mg/dL 120-200 H HDL (test code = 8795418270) 41 mg/dL >40 HDLC RATIO (test code = 9740244775) See_Comment H [Automated LicenseMetricsa ge] The system which generated this result transmitted reference range: <=5.0. The reference range was not used to interpret this result as normal/abnormal. TRIG (test code = 8086616255) 185 mg/dL 30-170 H LDL CHOL (test code = 43293-3) 137 mg/dL See_Comment [Automated messa ge] The system which generated this result transmitted reference range: <=160. The reference range was not used to interpret this result as normal/abnormal. VLDL (test code = 4708090155) 37 mg/dL 5-60 Lab Interpretation (test code = 50515-7) Abnormal [facility]2021-09-26 09:14:31* Test Item Value Reference Range Interpretation Comme nts MAGNESIUM (test code = 0358309077) 1.6 mg/dL 1.7-2.4 L Lab Interpretation (test cod e = 19696-1) Abnormal [facility] HospitalLIP[facility] PAN[facility] (99195)(TOTAL CHOLESTEROL, TRIGLYCERIDES, HDL)2021-07-03 09:14:31* Test Item Value Reference Range Interpretation Comme nts CHOL (test code = 5210113175) 215 mg/dL 120-200 H HDL (test code = 2841742018) 41 mg/dL >40 HDLC RATIO (test code = 7133586098) See_Comment H [Automated LicenseMetricsa Yappe] The system which generated this result transmitted reference range: <=5.0. The reference range was not used to interpret this result as normal/abnormal. TRIG (test code = 2145025873) 185 mg/dL 30-170 H LDL CHOL (test code = 57766-9) 137 mg/dL See_Comment [Automated LicenseMetricsa Yappe] The system which generated this result transmitted reference range: <=160. The reference range was not used to interpret this result as normal/abnormal. VLDL (test code = 1203828261) 37 mg/dL 5-60 Lab Interpretation (test code = 25535-2) [facility]normal [facility]2021-[facility]-26 09:14:11* Test Item Value Reference Range Interpretation Comme nts PHOSPHORUS (test code = 1218388846) 3.6 mg/dL 2.5-5.0 Lab Interpretation (test cod e = 38315-2) Normal [facility]2021-09-26 09:14:11* Test Item Value Reference Range Interpretation Comme nts PHOSPHORUS (test code = 8573086213) 3.6 mg/dL 2.5-5.0 Lab Interpretation (test cod e = 69667-6) Normal [facility]2021-09-26 09:14:11* Test Item Value Reference Range Interpretation Comme nts PHOSPHORUS (test code = 1363291229) 3.6 mg/dL 2.5-5.0 Lab Interpretation (test cod e = 65943-9) Normal [facility] HospitalURIC [id number] 09:13:51* Test Item Value Reference Range Interpretation Comme nts URIC ACID (test code = 7364909093) 4.4 mg/dL 3.6-8.0 Lab Interpretation (test cod e = 53010-7) Normal [facility] HospitalURIC [id number] 09:13:51* Test Item Value Reference Range Interpretation Comme nts URIC ACID (test code = 7011460848) 4.4 mg/dL 3.6-8.0 Lab Interpretation (test cod e = 37260-7) Normal [facility]UR[facility] [id number] 09:13:51* Test Item Value Reference Range Interpretation Comme nts URIC ACID (test code = 0216320364) 4.4 mg/dL 3.6-8.0 Lab Interpretation (test cod e = 47318-6) Normal [facility] HospitalCREATINE [id number] 09:13:50* Test Item Value Reference Range Interpretation Comme nts CK (test code = 0555705402) 122 U/L 33-194 Lab Interpretation (test cod e = 92115-1) Normal [facility] [id number] 09:13:50* Test Item Value Reference Range Interpretation Comme nts CK (test code = 8113701097) 122 U/L 33-194 Lab Interpretation (test cod e = 65296-1) Normal [facility] HospitalCREATINE [id number] 09:13:50* Test Item Value Reference Range Interpretation Comme nts CK (test code = 6268736781) 122 U/L 33-194 Lab Interpretation (test cod e = 29463-7) Normal [facility] HospitalGLYCOSYLATED HEMOGLOBIN (A1C)2021-07-03 08:59:52* Test Item Value Reference Range Interpretation Comme nts HGB A1C (test code = 4548-4) 12.9 % 4.0-5.7 H BRYSON (test code = BRYSON) Reference RangesNormal: <5.7%Prediabetes: 5.7 - 6.4%Diabetes: > 6.5% Lab Interpretation (test code = 66420-2) Abnormal [facility] HospitalGLYCOSYLATED HEMOGLOBIN (A1C)2021-07-03 08:59:52* Test Item Value Reference Range Interpretation Comme nts HGB A1C (test code = 4548-4) 12.9 % 4.0-5.7 H BRYSON (test code = BRYSON) Reference RangesNormal: <5.7%Prediabetes: 5.7 - 6.4%Diabetes: > 6.5% Lab Interpretation (test code = 12949-7) Abnormal [facility] HospitalGLYCOSYLATED HEMOGLOBIN (A1C)2021-07-03 08:59:52* Test Item Value Reference Range Interpretation Comme nts HGB A1C (test code = 4548-4) 12.9 % 4.0-5.7 H BRYSON (test code = BRYSON) Reference RangesNormal: <5.7%Prediabetes: 5.7 - 6.4%Diabetes: > 6.5% Lab Interpretation (test code = 86882-3) Abnormal [facility] [id number] 06:38:04* Test Item Value Reference Range Interpretation Comments TROPONIN I (test code = 3376031120) 0.014 ng/mL See_Comment [Automated message] The system [...] of biotin. Lab Interpretation (test code = 84307-8) Normal [facility] [id number] 06:38:04* Test Item Value Reference Range Interpretation Comments TROPONIN I (test code = 8885245615) 0.014 ng/mL See_Comment [Automated message] The system [...] of biotin. Lab Interpretation (test code = 59039-0) Normal [facility] HospitalTroponin [id number] 06:38:04* Test Item Value Reference Range Interpretation Comments TROPONIN I (test code = 8184533950) 0.014 ng/mL See_Comment [Automated message] The system [...] of biotin. Lab Interpretation (test code = 50351-9) Normal [facility] Hospital[facility].. Metabolic Panel (95446)2021-07-03 06:26:45* Test Item Value Reference Range Interpretation Comme nts NA (test code = 6713720872) 131 mmol/L 135-145 L K (test code = 8826641158) 4.1 mmol/L 3.5-5.0 CL (test code = 1465887074) 101 mmol/L 98-108 CO2 TOTAL (test code = 2232125771) 23 mmol/L 23-31 AGAP (test code = 4707574862) 2-16 BUN (test code = 4199059273) 20 mg/dL 7-23 GLUCOSE (test code = 6597296323) 403 mg/dL 70-110 H CREATININE (test code = 2051761806) 1.06 mg/dL 0.60-1.25 TOTAL BILI (test code = 4173010472) 0.4 mg/dL 0.1-1.1 CALCIUM (test code = 3681534585) 9.3 mg/dL 8.6-10.6 T PROTEIN (test code = 5764917036) 7.5 g/dL 6.3-8.2 ALBUMIN (test code = 5764862626) 3.9 g/dL 3.5-5.0 ALK PHOS (test code = 2335985317) 122 U/L 34-122 ALTv (test code = 1742-6) 16 U/L 5-50 AST(SGOT) (test code = 0798041552) 18 U/L 13-40 eGFR (test code = 4090902233) mL/min/1.73m2 BRYSON (test code = BRYSON) Association [...] imaging tests). Lab Interpretation (test code = 12332-0) Abnormal [facility] Metabolic Panel (11808)2021-07-03 06:26:45* Test Item Value Reference Range Interpretation Comme nts NA (test code = 7851632172) 131 mmol/L 135-145 L K (test code = 0191195728) 4.1 mmol/L 3.5-5.0 CL (test code = 0214437288) 101 mmol/L 98-108 CO2 TOTAL (test code = 1236940769) 23 mmol/L 23-31 AGAP (test code = 6774158533) 2-16 BUN (test code = 8606772394) 20 mg/dL 7-23 GLUCOSE (test code = 3058016292) 403 mg/dL 70-110 H CREATININE (test code = 5880762657) 1.06 mg/dL 0.60-1.25 TOTAL BILI (test code = 2624817218) 0.4 mg/dL 0.1-1.1 CALCIUM (test code = 8697465067) 9.3 mg/dL 8.6-10.6 T PROTEIN (test code = 2883427407) 7.5 g/dL 6.3-8.2 ALBUMIN (test code = 1053243393) 3.9 g/dL 3.5-5.0 ALK PHOS (test code = 5120363466) 122 U/L 34-122 ALTv (test code = 1742-6) 16 U/L 5-50 AST(SGOT) (test code = 8413062208) 18 U/L 13-40 eGFR (test code = 9972732796) mL/min/1.73m2 BRYSON (test code = BRYSON) Association [...] imaging tests). Lab Interpretation (test code = 89634-5) [facility]normal [facility] Metabolic Panel (09175)2021-07-03 06:26:45* Test Item Value Reference Range Interpretation Comme nts NA (test code = 3462014800) 131 mmol/L 135-145 L K (test code = 2793374060) 4.1 mmol/L 3.5-5.0 CL (test code = 8637005735) 101 mmol/L 98-108 CO2 TOTAL (test code = 4874729628) 23 mmol/L 23-31 AGAP (test code = 1128520210) 2-16 BUN (test code = 6947056085) 20 mg/dL 7-23 GLUCOSE (test code = 6324855833) 403 mg/dL 70-110 H CREATININE (test code = 2195639703) 1.06 mg/dL 0.60-1.25 TOTAL BILI (test code = 7350301707) 0.4 mg/dL 0.1-1.1 CALCIUM (test code = 5733616171) 9.3 mg/dL 8.6-10.6 T PROTEIN (test code = 9594172944) 7.5 g/dL 6.3-8.2 ALBUMIN (test code = 6496323440) 3.9 g/dL 3.5-5.0 ALK PHOS (test code = 8510305629) 122 U/L 34-122 ALTv (test code = 1742-6) 16 U/L 5-50 AST(SGOT) (test code = 1139442690) 18 U/L 13-40 eGFR (test code = 0122724853) mL/min/1.73m2 BRYSON (test code = BRYSON) Association [...] imaging tests). Lab Interpretation (test code = 02007-3) Abnormal [facility] With [id number] 06:17:42* Test Item Value Reference Range Interpretation Comme nts WBC (test code = 6690-2) See_Comment H [Automated [employer]] The system which generated this result transmitted reference range: 4.20 - 10.70 10*3/?L. The reference range was not used to interpret this result as normal/abnormal. RBC (test code = 789-8) See_Comment L [Automated [employer]] The system which generated this result transmitted [...] 34.7 g/dL 31.2-35.0 RDW-SD (test code = 72130-9) 40.6 fL 38.5-51.6 RDW-CV (test code = 788-0) 12.2 % 12.1-15.4 PLT (test code = 777-3) See_Comment [Automated messa ge] The system which generated this result transmitted reference range: 150 - 328 10*3/?L. The reference range was not used to interpret this result as normal/abnormal. MPV (test code = 84193-5) 13.0 fL 9.8-13.0 NRBC/100 WBC (test code = 8175202456) See_Comment [Automated [employer] ssage] The system which generated this result transmitted reference range: 0.0 - 10.0 /100 WBCs. The reference range was not used to interpret this result as normal/abnormal. NRBC x10^3 (test code = 4098245373) <0.01 See_Comment [Automated messa ge] The system which generated this result transmitted reference range: 10*3/?L. The reference range was not used to interpret this result as normal/abnormal. GRAN MAT (NEUT) % (test code = 770-8) 77.9 % IMM GRAN % (test code = 7072265862) 0.50 % LYMPH % (test code = 736-9) 11.6 % MONO % (test code = 5905-5) 9.2 % EOS % (test code = 713-8) 0.5 % BASO % (test code = 706-2) 0.3 % GRAN MAT x10^3(ANC) (test code = 2516274366) 9.93 10*3/uL 1.99-6.95 H IMM GRAN x10^3 (test code = 5629609167) 0.07 10*3/uL 0.00-0.06 H LYMPH x10^3 (test code = 731-0) 1.48 10*3/uL 1.09-3.23 MONO x10^3 (test code = 742-7) 1.18 10*3/uL 0.36-1.02 H EOS x10^3 (test code = 711-2) 0.06 10*3/uL 0.06-0.53 BASO x10^3 (test code = 704-7) 0.04 10*3/uL 0.01-0.09 Lab Interpretation (test code = 28791-7) Abnormal [facility] With [id number] 06:17:42* Test Item Value Reference Range Interpretation [...] 34.7 g/dL 31.2-35.0 RDW-SD (test code = 01831-2) 40.6 fL 38.5-51.6 RDW-CV (test code = 788-0) 12.2 % 12.1-15.4 PLT (test code = 777-3) See_Comment [Automated messa ge] The system which generated this result transmitted reference range: 150 - 328 10*3/?L. The reference range was not used to interpret this result as normal/abnormal. MPV (test code = 93344-2) 13.0 fL 9.8-13.0 NRBC/100 WBC (test code = 7648092315) See_Comment [Automated me ssage] The system which generated this result transmitted reference range: 0.0 - 10.0 /100 WBCs. The reference range was not used to interpret this result as normal/abnormal. NRBC x10^3 (test code = 6218592826) <0.01 See_Comment [Automated messa ge] The system which generated this result transmitted reference range: 10*3/?L. The reference range was not used to interpret this result as normal/abnormal. GRAN MAT (NEUT) % (test code = 770-8) 77.9 % IMM GRAN % (test code = 2975809590) 0.50 % LYMPH % (test code = 736-9) 11.6 % MONO % (test code = 5905-5) 9.2 % EOS % (test code = 713-8) 0.5 % BASO % (test code = 706-2) 0.3 % GRAN MAT x10^3(ANC) (test code = 0276404646) 9.93 10*3/uL 1.99-6.95 H IMM GRAN x10^3 (test code = 4884953252) 0.07 10*3/uL 0.00-0.06 H LYMPH x10^3 (test code = 731-0) 1.48 10*3/uL 1.09-3.23 MONO x10^3 (test code = 742-7) 1.18 10*3/uL 0.36-1.02 H EOS x10^3 (test code = 711-2) 0.06 10*3/uL 0.06-0.53 BASO x10^3 (test code = 704-7) 0.04 10*3/uL 0.01-0.09 Lab Interpretation (test code = 91755-9) Abnormal [facility] With [id number] 06:17:42* Test Item Value Reference Range Interpretation [...] 34.7 g/dL 31.2-35.0 RDW-SD (test code = 77533-3) 40.6 fL 38.5-51.6 RDW-CV (test code = 788-0) 12.2 % 12.1-15.4 PLT (test code = 777-3) See_Comment [Automated messa ge] The system which generated this result transmitted reference range: 150 - 328 10*3/?L. The reference range was not used to interpret this result as normal/abnormal. MPV (test code = 17381-1) 13.0 fL 9.8-13.0 NRBC/100 WBC (test code = 3107160170) See_Comment [Automated [employer]] The system which generated this result transmitted reference range: 0.0 - 10.0 /100 WBCs. The reference range was not used to interpret this result as normal/abnormal. NRBC x10^3 (test code = 3448826615) <0.01 See_Comment [Automated messa ge] The system which generated this result transmitted reference range: 10*3/?L. The reference range was not used to interpret this result as normal/abnormal. GRAN MAT (NEUT) % (test code = 770-8) 77.9 % IMM GRAN % (test code = 6777825007) 0.50 % LYMPH % (test code = 736-9) 11.6 % MONO % (test code = 5905-5) 9.2 % EOS % (test code = 713-8) 0.5 % BASO % (test code = 706-2) 0.3 % GRAN MAT x10^3(ANC) (test code = 1476121558) 9.93 10*3/uL 1.99-6.95 H IMM GRAN x10^3 (test code = 1856625834) 0.07 10*3/uL 0.00-0.06 H LYMPH x10^3 (test code = 731-0) 1.48 10*3/uL 1.09-3.23 MONO x10^3 (test code = 742-7) 1.18 10*3/uL 0.36-1.02 H EOS x10^3 (test code = 711-2) 0.06 10*3/uL 0.06-0.53 BASO x10^3 (test code = 704-7) 0.04 10*3/uL 0.01-0.09 Lab Interpretation (test code = 59783-3) [id number]* Test Item Value Reference Range Interpretation Comme nts CHOLESTEROL (test code = 2210) 224 MG/DL TRIGLYCERIDES (test code = 2232) 167 MG/DL HDL CHOLESTEROL (test code = 2220) 53 MG/DL CALC LDL CHOL (test code = 2237) 138 MG/DL RISK RATIO LDL/HDL (test cod e = 2238) 2.60 RATIO MICROALBUMIN/CREATININE, RANDOM AND [id number] 00:00:00* Test Item Value Reference Range Interpretation Comme nts CREATININE, URINE, CONC. (te st code = 2072) 36.2 MG/DL MICROALBUMIN, RANDOM (test c ode = 35054) 8.1 MG/DL CALC MICROALB/CREAT RND (sruthi t code = 36655) 224 MG/G HEMOGLOBIN [id number] 00:00:00* Test Item Value Reference Range Interpretation Comme nts HEMOGLOBIN A1c (test code = 77127) 11.6 % COMPREHENSIVE METABOLIC [id number] 00:00:00* Test Item Value Reference Range Interpretation Comme nts GLUCOSE (test code = 2217) 267 MG/DL BUN (test code = 2208) 19 MG/DL CREATININE (test code = 2214) 0.73 MG/DL eGFR AMER. (test cod e = 08041) 124 ML/MIN/1.73 eGFR NON- AMER. (test code = 49004) 107 ML/MIN/1.73 CALC BUN/CREAT (test code = [...] (test code = 2219) 22 U/L LIPID [id number] 00:00:00* Test Item Value Reference Range Interpretation Comme nts CHOLESTEROL (test code = 2210) 224 MG/DL TRIGLYCERIDES (test code = 2232) 167 MG/DL HDL CHOLESTEROL (test code = 2220) 53 MG/DL CALC LDL CHOL (test code = 2237) 138 MG/DL RISK RATIO LDL/HDL (test cod e = 2238) 2.60 RATIO MICROALBUMIN/CREATININE, RANDOM AND [id number] 00:00:00* Test Item Value Reference Range Interpretation Comme nts CREATININE, URINE, CONC. (te st code = 2072) 36.2 MG/DL MICROALBUMIN, RANDOM (test c ode = 95026) 8.1 MG/DL CALC MICROALB/CREAT RND (sruthi t code = 23736) 224 MG/G HEMOGLOBIN [id number] 00:00:00* Test Item Value Reference Range Interpretation Comme nts HEMOGLOBIN A1c (test code = 68182) 11.6 % COMPREHENSIVE METABOLIC [id number] 00:00:00* Test Item Value Reference Range Interpretation Comme nts GLUCOSE (test code = 2217) 267 MG/DL BUN (test code = 2208) 19 MG/DL CREATININE (test code = 2214) 0.73 MG/DL eGFR AMER. (test cod e = 55004) 124 ML/MIN/1.73 eGFR NON- AMER. (test code = 09890) 107 ML/MIN/1.73 CALC BUN/CREAT (test code = [...] ALT (test code = 2219) 22 U/L MICROALBUMIN/CREATININE, RANDOM AND [id number] 00:00:00* Test Item Value Reference Range Interpretation Comme nts CREATININE, URINE, CONC. (te st code = 2071) 84.2 MG/DL MICROALBUMIN, RANDOM (test c ode = 01154) 7.6 MG/DL CALC MICROALB/CREAT RND (sruthi t code = 07199) 90 MG/G MICROALBUMIN/CREATININE, RANDOM AND [id number] 00:00:00* Test Item Value Reference Range Interpretation Comme nts CREATININE, URINE, CONC. (te st code = 2071) 84.2 MG/DL MICROALBUMIN, RANDOM (test c ode = 53221) 7.6 MG/DL CALC MICROALB/CREAT RND (sruthi t code = 48618) 90 MG/G LIPID [id number] 00:00:00* Test Item Value Reference Range Interpretation Comme nts CHOLESTEROL (test code = 2210) 181 MG/DL TRIGLYCERIDES (test code = 2232) 228 MG/DL HDL CHOLESTEROL (test code = 2220) 49 MG/DL CALC LDL CHOL (test code = 2237) 86 MG/DL RISK RATIO LDL/HDL (test cod e = 2238) 1.76 RATIO COMPREHENSIVE METABOLIC [id number] 00:00:00* Test Item Value Reference Range Interpretation Comme nts GLUCOSE (test code = 2217) 276 MG/DL BUN (test code = 2208) 20 MG/DL CREATININE (test code = 2214) 0.95 MG/DL eGFR AMER. (test cod e = 86057) 107 ML/MIN/1.73 eGFR NON- AMER. (test code = 30013) 92 ML/MIN/1.73 CALC BUN/CREAT (test code = [...] (test code = 2219) 27 U/L LIPID [id number] 00:00:00* Test Item Value Reference Range Interpretation Comme nts CHOLESTEROL (test code = 2210) 181 MG/DL TRIGLYCERIDES (test code = 2232) 228 MG/DL HDL CHOLESTEROL (test code = 2220) 49 MG/DL CALC LDL CHOL (test code = 2237) 86 MG/DL RISK RATIO LDL/HDL (test cod e = 2238) 1.76 RATIO COMPREHENSIVE METABOLIC [id number] 00:00:00* Test Item Value Reference Range Interpretation Comme nts GLUCOSE (test code = 2217) 276 MG/DL BUN (test code = 2208) 20 MG/DL CREATININE (test code = 2214) 0.95 MG/DL eGFR AMER. (test cod e = 88823) 107 ML/MIN/1.73 eGFR NON- AMER. (test code = 66371) 92 ML/MIN/1.73 CALC BUN/CREAT (test code = [...] ALT (test code = 2219) 27 U/L HEMOGLOBIN [id number] 00:00:00* Test Item Value Reference Range Interpretation Comme nts HEMOGLOBIN A1c (test code = 02121) 9.4 % HEMOGLOBIN [id number] 00:00:00* Test Item Value Reference Range Interpretation Comme nts HEMOGLOBIN A1c (test code = 65672) 9.4 % [id number] 00:00:00* Test Item Value Reference Range Interpretation Comme nts TSH (test code = 2821) 2.44 UIU/ML LIPID [id number] 00:00:00* Test Item Value Reference Range Interpretation Comme nts CHOLESTEROL (test code = 2210) 253 MG/DL TRIGLYCERIDES (test code = 2232) 162 MG/DL HDL CHOLESTEROL (test code = 2220) 40 MG/DL CALC LDL CHOL (test code = 2237) 181 MG/DL RISK RATIO LDL/HDL (test cod e = 2238) 4.52 RATIO COMPREHENSIVE METABOLIC [id number] 00:00:00* Test Item Value Reference Range Interpretation Comme nts GLUCOSE (test code = 2217) 361 MG/DL BUN (test code = 2208) 19 MG/DL CREATININE (test code = 2214) 0.82 MG/DL eGFR AMER. (test cod e = 02809) 119 ML/MIN/1.73 eGFR NON- AMER. (test code = 38885) 102 ML/MIN/1.73 CALC BUN/CREAT (test code = [...] (test code = 2219) 32 U/L PSA, [id number] 00:00:00* Test Item Value Reference Range Interpretation Comme nts PSA, TOTAL (test code = 2606) 0.36 NG/ML MICROALBUMIN/CREATININE, RANDOM AND [id number] 00:00:00* Test Item Value Reference Range Interpretation Comme nts CREATININE, URINE, CONC. (te st code = 2072) 108.1 MG/DL MICROALBUMIN, RANDOM (test c ode = 44376) 36.3 MG/DL CALC MICROALB/CREAT RND (sruthi t code = 72260) 336 MG/G CBC W/AUTO [id number] 00:00:00* Test Item Value Reference Range Interpretation [...] (test code = 1015) 210 K/UL HEMOGLOBIN [id number] 00:00:00* Test Item Value Reference Range Interpretation Comme nts HEMOGLOBIN A1c (test code = 66683) 13.3 % [id number] 00:00:00* Test Item Value Reference Range Interpretation Comme nts TSH (test code = 2821) 2.44 UIU/ML LIPID [id number] 00:00:00* Test Item Value Reference Range Interpretation Comme nts CHOLESTEROL (test code = 2210) 253 MG/DL TRIGLYCERIDES (test code = 2232) 162 MG/DL HDL CHOLESTEROL (test code = 2220) 40 MG/DL CALC LDL CHOL (test code = 2237) 181 MG/DL RISK RATIO LDL/HDL (test cod e = 2238) 4.52 RATIO COMPREHENSIVE METABOLIC [id number] 00:00:00* Test Item Value Reference Range Interpretation Comme nts GLUCOSE (test code = 2217) 361 MG/DL BUN (test code = 2208) 19 MG/DL CREATININE (test code = 2214) 0.82 MG/DL eGFR AMER. (test cod e = 52204) 119 ML/MIN/1.73 eGFR NON- AMER. (test code = 34888) 102 ML/MIN/1.73 CALC BUN/CREAT (test code = [...] (test code = 2219) 32 U/L PSA, [id number] 00:00:00* Test Item Value Reference Range Interpretation Comme nts PSA, TOTAL (test code = 2606) 0.36 NG/ML MICROALBUMIN/CREATININE, RANDOM AND [id number] 00:00:00* Test Item Value Reference Range Interpretation Comme nts CREATININE, URINE, CONC. (te st code = 2072) 108.1 MG/DL MICROALBUMIN, RANDOM (test c ode = 76312) 36.3 MG/DL CALC MICROALB/CREAT RND (sruthi t code = 69687) 336 MG/G CBC W/AUTO [id number] 00:00:00* Test Item Value Reference Range Interpretation [...] (test code = 1015) 210 K/UL HEMOGLOBIN [id number] 00:00:00* Test Item Value Reference Range Interpretation Comme nts HEMOGLOBIN A1c (test code = 59713) 13.3 % Notes Date/Time Note Provider Source 2024-05-19 13:30:41 Chief Complaint Patient presents with Diabetes Diabetic follow up Nissa Banks MA II Nissa Banks MA, II [facility]
[2024-06-23] MEDS ORDERED: HYDROCODONE/APAP 7.5/325 MG TAB ONE (15:44)
--- NOTE | 2024-06-23 16:58 | RAD REPORT ---
EXAM: CT brain without contrast HISTORY: TRAUMA COMPARISON: None TECHNIQUE: Multiple contiguous axial images were obtained and a CT of the brain without contrast. Sag ittal and coronal reformats were performed. FINDINGS:No evidence of hydrocephalus, intracranial hemorrhage, or extra-axial fluid collection. The brain is normal in morphology. The calvarium is intact. The visualized paranasal sinuses and mastoid air cells are essentially clear . IMPRESSION: No evidence of acute intracranial abnormality. EXAM: CT of the cervical spine without contrast HISTORY: TRAUMA COMPARISON: None TECHNIQUE: Multiple contiguous axial images were obtained in a CT of the cervical spine without contr ast. Sagittal and coronal reformats were performed. FINDINGS: The vertebral bodies demonstrate normal height and alignment. No evidence of acute fracture or subluxation.. Ecsa-rp-zevwtvjj degenerative changes throughout the cervical spine. No prevertebral soft tissue swelling is seen. The posterior facets are well aligned. Normal alignment of the skull base with the cervical spine is seen. The lung apices are unremarkable. IMPRESSION: No evidence of acute osseous abnormality of the cervical spine. Up to moderate cervical spine degene rative changes.
--- NOTE | 2024-06-23 17:04 | RAD REPORT ---
EXAMINATION: XR LEFT SHOULDER CLINICAL INDICATION: Male, 58 years old. Pain, fall TECHNIQUE: Internal and external AP view radiograph of the left shoulder were obtained. COMPARISON: No prior exam. FINDINGS: No evidence of fracture or dislocation. Normal alignment. No focal suspicious osseous lesio n. Mild AC joint degenerative changes and mild to moderate glenohumeral joint degenerative changes. Corticated osseous density along the inferior axillary recess, nonspecific, but could relate to a loo se body. Soft tissues are otherwise unremarkable. IMPRESSION: No acute osseous abnormality. Degenerative changes and questionable loose body along the axillary rec ess as above.
--- NOTE | 2024-06-23 17:06 | ER ---
Nurse's Notes [facility] Name: Michelet Godinez Age: 58 yrs Sex: Male : 1965 Arrival Date: 06/23/2024 Time: 15:08 Bed 12 Private MD: Diagnosis: Contusion of scalp, initial encounter;Unspecified injury of head, initial encounter Presentation: 06/23 15:17 Chief complaint: Patient states: Fell 1 hour [employer]IDE [employer] after tripping. Hit head, no LOC. MATOS, ll1 L chest and shoulder pain since. Coronavirus screen: Client denies travel out of the [place] in the last 14 days. At this time, the client does not indicate any symptoms associated with coronavirus-19. Ebola Screen: Patient denies travel to an Ebola-affected area in the 21 days before illness onset. Initial Sepsis Screen: Does the patient meet any 2 criteria? No. Patient's initial sepsis screen is negative. Does the patient have a suspected source of infection? No. Patient's initial sepsis screen is negative. Risk Assessment: Do you want to hurt yourself or someone else? Patient reports no desire to harm self or others. Onset of symptoms was June 23, 2024. 15:17 Method Of Arrival: Ambulatory ll1 15:17 Acuity: FERMIN 3 ll1 Triage Assessment: 15:17 General: Appears uncomfortable, Behavior is calm, cooperative, appropriate for age. ll1 Pain: Complains of pain in head Pain currently is 8 out of 10 on a pain scale. Quality of pain is described as aching. Neuro: Reports headache. Musculoskeletal: Reports pain in L shoulder/chest. Injury Description: Head injury Bruise. Historical: - Allergies: 15:11 No Known Allergies; ll1 - PMHx: 15:11 diabetes mellitus; Hypercholesterolemia; Hypertensive disorder; ll1 - PSHx: 15:17 toe amputation; ll1 - Immunization history:: Adult Immunizations up to date. - Infectious Disease History:: Denies. - Social history:: Smoking status: Patient denies any tobacco usage or history of. Screenin:49 [facility] ED Fall Risk Assessment (Adult) History of falling in the last 3 months, mb9 including since admission No falls in past 3 months (0 pts) Confusion or Disorientation No (0 pts) Intoxicated or Sedated No (0 pts) Impaired Gait No (0 pts) Mobility Assist Device Used No (0 pt) Altered Elimination No (0 pt) Score/Fall Risk Level 0 - 2 = Low Risk Oriented to surroundings, Maintained a safe environment, Educated pt \T\ family on fall prevention, incl call for assistance when getting out of bed. Abuse screen: Denies threats or abuse. Nutritional screening: No deficits noted. Tuberculosis screening: No symptoms or risk factors identified. Assessment: 15:50 General: Appears in no apparent distress. Behavior is calm, cooperative. Pain: mb9 Complains of pain in left occipital area and anterior aspect of left shoulder Quality of pain is described as throbbing. Neuro: Level of Consciousness is awake, alert, obeys commands, Oriented to person, place, time, situation, Appropriate for age Pupils are PERRLA. Cardiovascular: Patient's skin is warm and dry. Respiratory: Airway is patent Respiratory effort is even, unlabored, Respiratory pattern is regular, symmetrical. GI: Patient currently denies nausea, vomiting. : No signs and/or symptoms were reported regarding the genitourinary system. EENT: No signs and/or symptoms were reported regarding the EENT system. Derm: Skin is pink, warm \T\ dry. Musculoskeletal: Range of motion: intact in all extremities. Vital Signs: 15:17 BP 150 / 71; Pulse 72; Resp 17; Temp 98.5; Pulse Ox 95% ; Weight 95.25 kg; Height 5 ft. ll1 6 in. ; Pain 8/10; 17:06 BP 151 / 75; Pulse 69; Resp 18; Pulse Ox 100% on R/A; mb9 15:17 Body Mass Index 33.89 (95.25 kg, 167.64 cm) ll1 15:17 Pain Scale: Adult ll1 Luther Coma Score: 17:06 Eye Response: spontaneous(4). Motor Response: obeys commands(6). Verbal Response: sb4 oriented(5). Total: 15. ED Course: 15:10 Patient arrived in ED. im 15:11 Arm band placed on. ll1 15:12 Mary Oliver PA-C is PHCP. sb4 15:12 Nallely Posadas MD is Attending Physician. sb4 15:19 Triage completed. ll1 15:32 Head C Spine MPR Wo Con CT In Process Unspecified. EDMS 15:40 Shoulder Left (2 View) XRAY In Process Unspecified. EDMS 15:43 Linda Suarez, RN is Primary Nurse. mb9 15:49 Placed in gown. Bed in low position. Call light in reach. Side rails up X 1. Provided kelton Education on: press call light if needing anything. Client placed on continuous cardiac and pulse oximetry monitoring. NIBP monitoring applied. 15:50 No provider procedures requiring assistance completed. mb9 17:06 Patient did not have IV access during this emergency room visit. mb9 Administered Medications: 15:48 Drug: Hydrocodone-Acetaminophen PO (7.5 mg-325 mg) 1 tabs PO once Route: PO; mb9 16:49 Follow up: Response: No adverse reaction kelton Medication: 15:50 VIS not applicable for this client. [email or web address] Outcome: 17:05 Discharge ordered by . nasir 17:06 Discharged to home ambulatory, with family, kelton 17:06 Condition: stable 17:06 Discharge instructions given to patient, family, Instructed on discharge instructions, follow up and referral plans. Demonstrated understanding of instructions, follow-up care, 17:11 Patient left the ED. kelton Signatures: Dispatcher [employer] Adrian Doss RN RN ll1 Mary Oliver PAHakan PALashonC heriberto4 Linda Suarez, RN RN mb9 Oliva Hwang
--- NOTE | 2024-06-23 17:06 | EDPHYS ---
Physician Documentation [facility] Name: Michelet Godinez Age: 58 yrs Sex: Male : 1965 Arrival Date: 06/23/2024 Time: 15:08 Bed 12 Private MD: ED Physician Nallely Posadas HPI: 06/23 15:25 This 58 yrs old Male presents to ER via Ambulatory with complaints of Head sb4 Injury Without LOC-Adult. 15:25 patient tripped and fell backwards just [employer], hitting the back of his head on the door sb4 frame. no LOC, no blood thinners. patient reports pain in the back of his head and left shoulder/neck. denies any confusion, dizziness, nausea, vomiting. Historical: - Allergies: 15:11 No Known Allergies; ll1 - PMHx: 15:11 diabetes mellitus; Hypercholesterolemia; Hypertensive disorder; ll1 - PSHx: 15:17 toe amputation; ll1 - Immunization history:: Adult Immunizations up to date. - Infectious Disease History:: Denies. - Social history:: Smoking status: Patient denies any tobacco usage or history of. ROS: 15:25 Constitutional: Negative for fever, chills, and weight loss, sb4 15:25 MS/extremity: Positive for injury or acute deformity, pain, of the anterior aspect of left shoulder, 15:25 Neuro: Positive for headache, 15:25 All other systems are negative, Exam: 15:25 Constitutional: This is a well developed, well nourished patient who is awake, alert, sb4 and in no acute distress. Eyes: Extra-ocular motions intact. Periorbital areas with no swelling, redness, or edema. ENT: Mucous membranes moist. Cardiovascular: Regular rate and rhythm with a normal S1 and S2. Respiratory: Lungs have equal breath sounds bilaterally, clear to auscultation and percussion. No rales, rhonchi or wheezes noted. No increased work of breathing, no retractions or nasal flaring. Skin: Warm, dry with normal turgor. Normal color with no rashes, no lesions, and no evidence of cellulitis. MS/ Extremity: Pulses equal, no cyanosis. Neurovascular intact. Full, normal range of motion. Neuro: Awake and alert, GCS 15, oriented to person, place, time, and situation. Motor strength 5/5 in all extremities. Sensory grossly intact. 15:25 Head/face: Noted is hematoma, that is moderate, of the left occipital area, Vital Signs: 15:17 BP 150 / 71; Pulse 72; Resp 17; Temp 98.5; Pulse Ox 95% ; Weight 95.25 kg; Height 5 ft. ll1 6 in. ; Pain 8/10; 17:06 BP 151 / 75; Pulse 69; Resp 18; Pulse Ox 100% on R/A; mb9 15:17 Body Mass Index 33.89 (95.25 kg, 167.64 cm) ll1 15:17 Pain Scale: Adult ll1 Gerlaw Coma Score: 17:06 Eye Response: spontaneous(4). Motor Response: obeys commands(6). Verbal Response: sb4 oriented(5). Total: 15. MDM: 15:14 Patient medically screened. sb4 17:06 Data reviewed: vital signs, nurses notes, radiologic studies, and as a result, I will sb4 discharge patient. Counseling: I had a detailed discussion with the patient and/or guardian regarding the historical points, exam findings, and any diagnostic results supporting the discharge/admit diagnosis, the presence of at least one elevated blood pressure reading (>120/80) during this emergency department visit, radiology results, the need for outpatient follow up, for definitive care, to return to the emergency department if symptoms worsen or persist or if there are any questions or concerns that arise at home. 06/23 15:23 Order name: Head C Spine MPR Wo Con CT; Complete Time: 16:59 sb4 06/23 15:23 Order name: Shoulder Left (2 View) XRAY; Complete Time: 17:04 sb4 Administered Medications: 15:48 Drug: Hydrocodone-Acetaminophen PO (7.5 mg-325 mg) 1 tabs PO once Route: PO; mb9 16:49 Follow up: Response: No adverse reaction mb9 Disposition Summary: 06/23/24 17:05 Discharge Ordered Notes: Location: Home sb4 Problem: new sb4 Symptoms: have improved sb4 Condition: Stable sb4 Diagnosis - Contusion of scalp, initial encounter sb4 - Unspecified injury of head, initial encounter sb4 Followup: sb4 - With: Emergency Department - When: As needed - Reason: Trouble breathing, Worsening of condition Discharge Instructions: - Discharge Summary Sheet sb4 - Hematoma, Hhxg-qe-Bynz sb4 - Head Injury, Adult, Nvjn-ut-Uequ sb4 - Facial or Scalp Contusion, Liuf-pl-Lfom sb4 Forms: - Patient Portal Instructions sb4 - Leadership Thank You Letter sb4 Signatures: Dispatcher [employer] Adrian Doss RN RN ll1 Mary Oliver PA-C PA-C sb4 Linda Suarez RN RN mb9
[2024-06-23 17:57] VITALS: TEMP 98.5
[2024-06-23 17:59] VITALS: BP 151/75; O2SAT 100
== END 2024-06-23 17:11 | disposition home or self-care (01) ==
LOC: ER 15:08
DX: S00.03XA Contusion of scalp, initial encounter (principal); W01.0XXA Fall on same level from slipping, tripping and stumbling without subsequent striking against object, initial encounter; M25.512 Pain in left shoulder; M54.2 Cervicalgia
CPT/HCPCS: 70450; 72125; 99283

== ENCOUNTER 2024-10-20 06:20 | Emergency (ER) | payer SELFPAY ==
--- OUTSIDE RECORDS SUMMARY | 2024-10-20 06:30 | XMS REPORT | Continuity of Care Document ---
Author Name Unknown Address [address] [facility] [address] [place] [address] [facility] thconnect Address [address] [facility] 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 Role Phone Addison Desmond OSBORNE Primary Care Physician MARQUES THOMAS Attending Clinician Unavailable [id number] Attending Clinician Unavailable JENNIFER PRICE Attending Clinician UnavailMALACHI Mckay Attending Clinician Unava ilBEATA Loza Attending Clinician Unav CARLEE Randall Attending Clinician UnavailQUINN Rubin Attending Clinician Unavail JOAN Lee Attending Clinician Unavailable FELIPA CALHOUN Attending Clinician Unavailable 39, HOLTER Attending Clinician Unavailable Jewel BORDEN, Rebecca Mott Attending Clinician [phone] JOAN FAGAN Attending Clinician Unavailhaile Novoa MD, Micah A Attending Clinician [phone] Denise KINSEY, Jaz Attending Clinician [phone] Gayle KINSEY, Gianluca Zamora Attending Clinician [phone] Joan Fagan MD Attending Clinician [phone] Diego Rogers DO Attending Clinician [phone] TRAVIS ASHTON Attending Clinician Unavailable Aurora Goins LVN Attending Clinician [phone] Gal HAYNES, Wong Brown Attending Clinician [phone] Gm De Los Santos MD Attending Clinician [phone] Chandler Villatoro MD Attending Clinician [phone] Travis GUSTAFSON, Nomi E Attending Clinician [phone] JOAN FAGAN Admitting Clinician Joan Ibarra MD Admitting Clinician [phone] Gm De Los Santos MD Admitting Clinician Payers Payer Name Policy Type Policy Number Effective Date Expirati on Date Source [employer] MP [facility] [employer] 5 O [employer] AGENT 94 ON 9 [id number] 2023 00:00:00 Problems Condition Name Condition Details Condition Category Status Onset Date Resolution Date Last Treatment Date Treating Clinician Comments Source 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 Disease Active 1-03 00:00: 00 Sonia Orr - Externa linden Abnormal stress test Abnormal stress test Disease Active 3- 00:00: 00 Sonia Orr - Externa l Hospital discharge follow-up Hospital discharge follow-up Disease Active 3- 00:00: 00 Sonia Orr - Externa l Chronic diastolic CHF (congestiv e heart failure) (multi HCC) Chronic diastolic CHF (congestiv e heart failure) (multi HCC) Disease Active 2-09 00:00: 00 Sonia Orr - Externa l Other specified anemias Other specified anemias Disease Active 2-09 00:00: 00 Sonia Orr - Externa l Type 2 diabetes 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, without long-term current use of insulin (multi HCC) Type 2 diabetes 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, without long-term current use of insulin (multi HCC) Disease Active 6-12 00:00: 00 Sonia Orr - Externa linden Shortness of breath Shortness of breath Disease Active 4-26 00:00: 00 [facility] DM type 2 with diabetic mixed hyperlipid emia (multi HCC) DM type 2 with diabetic mixed hyperlipid emia (multi HCC) Disease Active 12-06 00:00: 00 Sonia Orr - Externa l Primary hypertensi on Primary hypertensi on Disease Active 12-06 00:00: 00 Sonia Kolbold - Externa l Chronic cough Chronic cough Disease Active 12-06 00:00: 00 Sonia Orr - Externa l Edema, lower extremity Edema, lower extremity Disease Active 12-06 00:00: 00 Sonia Kolbold - Externa l Severe obesity Severe obesity Disease Active 12-06 00:00: 00 Sonia Kolbold - Externa l Obesity (BMI 30-39.9) Obesity (BMI 30-39.9) Disease Active 07-04 00:00: 00 [facility] Cellulitis Cellulitis Disease Active 07-03 00:00: 00 [facility] Allergies, Adverse Reactions, Alerts Allergy Name Allergy Type Status Severity Reaction(s) Onset Date Inactive Date Treating Clinician Comments Source NO KNOWN ALLERGIE S Drug Class Active [facility] Social History Social Habit Start Date Stop Date Quantity Comments Source History SDOH Social Connections Get Together [facility] History SDOH Social Connections Amish [facility] History SDOH Social Connections Membership [facility] History SDOH Social Connections Meetings [facility] History of Occupation Sonia Orr - External Gender identity Lorenza Orr - External Sexual orientation Wong Orr - External Alcoholic beverage intake 2024-10-10 00:00:00 2024-10-10 00:00:00 Current drinker of alcohol (finding) Sonia Orr - External Alcohol intake 2024-01-02 00:00:00 2024-01-02 00:00:00 Current drinker of alcohol (finding) Sonia Orr - External History of Social function 2023-06-25 00:00:00 2023-06-25 00:00:00 Sonia Orr - External History SDOH Alcohol Frequency 2023-01-31 00:00:00 2023-01-31 00:00:00 5 [facility] History SDOH Alcohol Std Drinks 2023-01-31 00:00:00 2023-01-31 00:00:00 1 [facility] History SDOH Alcohol Binge 2023-01-31 00:00:00 2023-01-31 00:00:00 1 [facility] History SDOH Social Connections Phone 2023-01-31 00:00:00 2023-01-31 00:00:00 3 [facility] History SDOH Social Connections Living 2023-01-31 00:00:00 2023-01-31 00:00:00 3 [facility] History SDOH Financial 2023-01-31 00:00:00 2023-01-31 00:00:00 2 [facility] History SDOH Food Worry 2023-01-31 00:00:00 2023-01-31 00:00:00 3 [facility] History SDOH Food Scarcity 2023-01-31 00:00:00 2023-01-31 00:00:00 3 [facility] History SDOH Transport Med 2023-01-31 00:00:00 2023-01-31 00:00:00 2 [facility] History SDOH Transport Non-Med 2023-01-31 00:00:00 2023-01-31 00:00:00 2 [facility] History SDOH Housing Unable to Pay 2023-01-31 00:00:00 2023-01-31 00:00:00 1 [facility] History SDOH Housing Places Lived 2023-01-31 00:00:00 2023-01-31 00:00:00 1 [facility] History SDOH Housing Homeless Last Year 2023-01-31 00:00:00 2023-01-31 00:00:00 2 [facility] Exposure to SARS-CoV-2 (event) 2023-01-20 00:00:00 2023-01-30 18:08:00 Not sure [facility] Alcohol Comment 2022-12-06 00:00:00 2022-12-06 00:00:00 occasionally Sonia Orr - External Education 2022-12-06 00:00:00 2022-12-06 00:00:00 13 Sonia Seybold - External Sex 2022-10-05 15:57:45 2022-10-05 15:57:45 Male (finding) Sonia Orr - External Tobacco use and exposure 2021-07-03 00:00:00 2021-07-03 00:00:00 Smokeless tobacco non-user [facility] Sex assigned at 1965 00:00:00 1965 00:00:00 Sonia Kirby Oates External Smoking Status Start Date Stop Date Source Never smoked tobacco Sonia Kirby - External Medications Ordered Medication Name Filled Medication Name Start Date Stop Date Current Medication? Ordering Clinician Indication Dosage Frequency Signature (SIG) Comments Components Source Multiple Vitamins-Mi nerals (One-A-Day Mens 50+) oral Tablet 10-10 15:43: 22 Yes QD Take by mouth daily. Sonia cheatham hydrALAZINE HCl 100 MG oral Tablet 10-10 15:43: 22 Yes 100mg Q.[id number] 3D Take 1 tablet (100 mg total) by mouth 3 times daily. Sonia cheatham Ferrous Fumarate (Ferretts) 325 (106 Fe) MG oral Tablet 10-10 00:00: 00 Yes [id number] 1{tbl} QD Take 1 tablet by mouth daily. Sonia cheahtam Ferretts 325 (106 Fe) MG oral Tablet 2023-10 00:00: 00 10-10 00:00 :00 No 1{tbl} Q.37161730 [id number] 3D Take 1 tablet by mouth 3 times daily. Sonia cheatham Sodium Bicarbonate 650 MG oral Tablet 2023-10 00:00: 00 Yes 650mg Q.39801979 [id number] 3D Take 1 tablet (650 mg total) by mouth 3 times daily. Sonia cheatham Carvedilol 25 MG oral Tablet 2023-10 00:00: 00 Yes 25mg Q.5D Take 1 tablet (25 mg total) by mouth 2 times daily. Sonia cheatham Clonidine (CATAPRES) 0.2 MG oral Tablet 2024-1 2-18 00:00: 00 Yes .2mg Q.[id number] 3D Take 1 tablet (0.2 mg total) by mouth 3 times daily. Sonia cheatham glipiZIDE 5 MG oral Tablet 2023-10-15 00:00: 00 Yes [id number] 3 5mg TAKE 1 TABLET (5 MG TOTAL) BY MOUTH DAILY (BEFORE A MEAL). Sonia cheatham Jardiance 10 MG oral Tablet 2023-10 0-10 00:00: 00 Yes [id number] 10mg QD take 1 tablet by mouth every day Sonia cheatham Clonidine HCl (CATAPRES) 0.1 MG oral Tablet 07-03 00:00: 00 10-10 00:00 :00 No .1mg Q.69130925 [id number] 3D take 1 tablet by mouth 3 times daily. Sonia cheatham Carvedilol 12.5 MG oral Tablet 06-10 00:00: 00 10-10 00:00 :00 No 12.5mg QD TAKE 1 TABLET (12.5 MG TOTAL) BY MOUTH IN THE MORNING AND IN THE EVENING WITH MEALS Sonia cheatham Multiple Vitamins-Mi nerals (One-A-Day Mens 50+) oral Tablet 05-19 13:30: 40 Yes QD Take by mouth daily. Sonia cheatham hydrALAZINE HCl 100 MG oral Tablet 12 13:30: 40 Yes 100mg Q.03268820 [id number] 3D Take 1 tablet (100 mg total) [...] MG oral Tablet 03-20 00:00: 00 Yes [id number] 3 5mg Take 1 tablet (5 mg total) by mouth in the morning and 1 tablet (5 mg total) in the evening. Take before meals. Sonia cheatham Atorvastati n Calcium 80 MG oral Tablet 20 00:00: 00 Yes [id number] 3 80mg QD Take 1 tablet (80 mg total) by mouth nightly. Sonia cheatham Carvedilol 12.5 MG oral Tablet 02-21 00:00: 00 Yes 12.5mg Take 1 tablet (12.5 mg total) by mouth in the morning and 1 tablet (12.5 mg total) in the evening. Take with meals. Sonia cheatham glipiZIDE 5 MG oral Tablet 02-21 00:00: 00 03-20 00:00 :00 No [id number] 3 5mg Take 1 tablet (5 mg total) by mouth daily (before a meal). Sonia cheatham Furosemide (Lasix) 40 MG oral Tablet 02-13 00:00: 00 Yes [id number] 40mg Q.5D Take 1 tablet (40 mg total) by mouth 2 times daily. Sonia cheatham Losartan Potassium 25 MG oral Tablet 02-13 00:00: 00 Yes [id number] 25mg QD Take 1 tablet (25 mg [...] MG oral Tablet 01-29 00:00: 00 Yes [id number] 40mg Take 1 tablet (40 mg total) by mouth 2 times daily. Sonia cheatham Clonidine HCl (CATAPRES) 0.1 MG oral Tablet 01-29 00:00: 00 Yes .1mg Q.36141229 [id number] 3D Take 1 tablet (0.1 mg total) by mouth 3 times daily. Sonia cheatham Amlodipine Besylate 10 MG oral Tablet 01-29 00:00: 00 Yes [id number] 10mg QD Take 1 tablet (10 mg [...] Empaglifloz in (Jardiance) 10 MG oral Tablet 01-10 00:00: 00 Yes [id number] 10mg QD Take 1 tablet (10 mg total) by mouth daily. Sonia cheatham Furosemide (Lasix) 40 MG oral Tablet 01-02 00:00: 00 01-29 00:00 :00 No [id number] 40mg Take 1 tablet (40 mg total) by mouth daily. Sonia cheatham glipiZIDE 5 MG oral Tablet -04 00:00: 00 Yes [id number] 5mg Take 1 tablet (5 mg total) by mouth daily (before a meal). Sonia cheatham Benzonatate (Tessalon Perles) 100 MG oral Capsule -23 00:00: 00 Yes [id number] 100mg Q.[id number] 3D Take 1 capsule (100 mg total) by mouth 3 times daily as needed for cough. Sonia cheatham glipiZIDE 5 MG oral Tablet 11-16 00:00: 00 Yes [id number] 5mg Take 1 tablet (5 mg total) by mouth daily (before a meal). Sonia cheatham Empaglifloz in (Jardiance) 10 MG oral Tablet 11-16 00:00: 00 Yes [id number] 10mg Take 1 tablet (10 mg total) by mouth daily. Sonia cheatham Amlodipine Besylate 10 MG oral Tablet 11-16 00:00: 00 Yes [id number] 10mg Take 1 tablet (10 mg total) by mouth daily. Sonia cheatham Furosemide (Lasix) 40 MG oral Tablet 11-16 00:00: 00 Yes [id number] 40mg Take 1 tablet (40 mg total) by mouth 2 times daily. Sonia cheatham Losartan Potassium (COZAAR) 100 MG oral Tablet 11-16 00:00: 00 Yes [id number] 100mg Take 1 tablet (100 mg total) by mouth daily. Sonia cheatham Atorvastati n Calcium 20 MG oral Tablet 11-16 00:00: 00 Yes [id number] 3 20mg Take 1 tablet (20 mg total) by mouth nightly. Sonia cheatham Blood Glucose Monitoring Suppl does not apply Kit 11-16 00:00: 00 Yes [id number] 1{each} Q.5D Inject 1 each into the skin 2 times daily Check BS twice daily. Sonia cheatham Glucose Blood in vitro Strip 11-16 00:00: 00 Yes [id number] 1{each} Q.5D 1 each by other route 2 times daily Check BS twice daily. Sonia cheatham Lancets 33G does not apply Misc 11-16 00:00: 00 Yes [id number] 1{each} Q.5D 1 each by does not apply route 2 times daily Check BS twice daily. Sonia cheatham Losartan Potassium (COZAAR) 100 MG oral Tablet 2022-10 00:00: 00 11-16 00:00 :00 No [id number] 100mg Take 1 tablet (100 mg total) by mouth daily. Sonia cheatham Amlodipine Besylate 10 MG oral Tablet 2022-10 1- 00:00: 00 11-16 00:00 :00 No [id number] 10mg TAKE 1 TABLET BY MOUTH EVERY DAY Sonia cheatham glipiZIDE 10 MG oral Tablet 2022-10 0- 00:00: 00 11-16 00:00 :00 No [id number] 3 TAKE 1 TABLET BY MOUTH IN THE MORNING AND IN THE EVENING BEFORE MEALS Sonia cheatham Januvia 100 MG oral Tablet 9-28 00:00: 00 11-16 00:00 :00 No [id number] 100mg TAKE 1 TABLET BY MOUTH EVERY DAY Sonia cheatham Furosemide (Lasix) 40 MG oral Tablet 7-10 00:00: 00 11-16 00:00 :00 No [id number] 40mg Take 1 tablet (40 mg total) by mouth 2 times daily Sonia cheatham Atorvastati n Calcium 20 MG oral Tablet 7-07 00:00: 00 11-16 00:00 :00 No [id number] 3 20mg Take 1 tablet (20 mg total) by mouth nightly Sonia cheatham Furosemide (Lasix) 40 MG oral Tablet 6-12 00:00: 00 Yes [id number] 40mg Take 1 tablet (40 mg total) by mouth 2 times daily Sonia cheatham chlorthalid one 25 mg tablet -06 00:00: 00 08-10 04:59 :00 No [id number] 25mg Take 1 tablet by mouth daily for 180 days. [facility] amLODIPine 10 mg tablet 02-09 15:20: 31 Yes 10mg Take 1 tablet by mouth daily. [facility] metFORMIN 1,000 mg tablet 02-09 15:20: 31 Yes 1000mg Take 1 tablet by mouth 2 (two) times daily with meals. [facility] glipiZIDE 10 mg tablet 02-09 15:20: 31 Yes 10mg Take 1 tablet by mouth daily. [facility] POTASSIUM-9 9 ORAL 02-09 15:20: 31 Yes 10meq Take 10 mEq by mouth. [facility] furosemide (LASIX) 20 mg tablet 02-09 13:03: 35 02-09 00:00 :00 No 20mg Take 1 tablet by mouth daily. [facility] losartan 100 mg tablet 02-09 13:03: 35 02-09 00:00 :00 No 100mg Take 1 tablet by mouth daily. [facility] furosemide (LASIX) injection 40 mg 02-09 01:00: 00 Yes 40mg 40 mg, Slow IV Push, Q12H, First dose on Thuy 02/08/23 at 1999, Until Discontinu ed, Routine [facility] glipiZIDE 10 MG oral Tablet 02-09 00:00: 00 Yes [id number] 3 TAKE 1 TABLET BY MOUTH IN THE MORNING AND IN THE EVENING BEFORE MEALS Sonia cheatham furosemide 40 mg tablet 02-09 00:00: 00 08-09 04:59 :00 No [id number] 40mg Take 1 tablet by mouth every morning and evening for 180 days. [facility] atorvastati n 80 mg tablet 02-09 00:00: 00 08-09 04:59 :00 No [id number] 80mg Take 1 tablet by mouth at bedtime for 180 days. [facility] carvediloL 25 mg tablet 02-09 00:00: 00 08-09 04:59 :00 No [id number] 25mg Take 1 tablet by mouth 2 (two) times daily with meals for 180 days. [facility] hydrALAZINE 100 mg tablet 02-09 00:00: 00 08-09 04:59 :00 No [id number] 100mg Take 1 tablet by mouth 3 (three) times daily for 180 days. [facility] isosorbide dinitrate 40 mg tablet 02-09 00:00: 00 08-09 04:59 :00 No [id number] 40mg Take 1 tablet by mouth 3 (three) times daily for 180 days. [facility] hydroCHLORO thiazide 25 MG oral Tablet 02-09 00:00: 00 03-19 00:00 :00 No [id number] 25mg Take 1 tablet (25 mg total) by mouth daily Sonia cheatham chlorthalid one (HYGROTON) tablet 25 mg 02-08 14:00: 00 Yes 25mg 25 mg, Oral, DAILY, First dose on Sun02/08/23 at 0900, Until Discontinu ed, Routine [facility] heparin (porcine) injection 5,000 Units 02-08 13:00: 00 02-09 01:27 :00 No 5000U 5,000 Units, Subcutaneo us, Q12H, 2 doses, First dose (after last modificati on) on Sun02/08/23 at 0800, Last dose on Sun02/08/23 at 2000, Routine [facility] isosorbide dinitrate (ISORDIL) tablet 40 mg 02-07 17:00: 00 Yes 40mg 40 mg, Oral, TIDHOL, First dose (after last modificati on) on Sun02/07/23 at 1200, Until Discontinu ed, Routine [facility] HYDROcodone -acetaminop hen (NORCO 5) 5-325 mg tablet 1 tablet 02-07 02:00: 00 02-07 01:48 :00 No 1{tbl} 1 tablet, Oral, ONCE, 1 dose, On Sun02/06/23 at 2100, Routine [facility] hydrALAZINE (APRESOLINE ) tablet 100 mg 02-06 19:00: 00 Yes 100mg 100 mg, Oral, TID, First dose (after last modificati on) on Sun02/06/23 at 1400, Until Discontinu ed, Routine [facility] KCL (KLOR-CON M20) tablet 20 mEq 02-06 13:15: 00 02-06 14:49 :00 No 20meq 20 mEq, Oral, ONCE, 1 dose, On Sun02/06/23 at 0815, Routine [facility] regadenoson (LEXISCAN) injection 0.4 mg 02-05 19:30: 00 02-05 19:23 :00 No [id number] .4mg 0.4 mg, IV Push, ONCE, 1 dose, On Sun02/05/23 at 1430, Routine
member of technical staff approving Restricted medication : TYRELL PULIDO [facility] tc 99m-tetrofo smin (MYOVIEW) injection 40 millicurie 02-05 19:20: 00 02-05 19:20 :00 No [id number] 40mCi 40 millicurie , Intravenou s, ONCE, 1 dose, On Sun02/05/23 at 1445, Routine [facility] tc 99m-tetrofo smin (MYOVIEW) injection 15 millicurie 02-05 18:15: 00 02-05 18:15 :00 No [id number] 15mCi 15 millicurie , Intravenou s, ONCE, 1 dose, On Sun02/05/23 at 1315, Routine [facility] isosorbide dinitrate (ISORDIL) tablet 30 mg 02-05 17:00: 00 02-07 15:56 :10 No 30mg 30 mg, Oral, TIDHOL, First dose (after last modificati on) on Sun02/05/23 at 1200, Until Discontinu ed, Routine [facility] spironolact one (ALDACTONE) tablet 25 mg 02-05 14:00: 00 02-05 16:06 :18 No 25mg 25 mg, Oral, DAILY, First dose (after last modificati on) on Sun02/05/23 at 0900, Until Discontinu ed, Routine [facility] isosorbide dinitrate (ISORDIL) tablet 10 mg 30 16:00: 00 02-05 16:06 :12 No 10mg 10 mg, Oral, TIDHOL, First dose on Sun02/04/23 at 1100, Until Discontinu ed, Routine [facility] carvediloL (COREG) tablet 25 mg 02-04 13:00: 00 Yes 25mg 25 mg, Oral, BID MEALS, First dose (after last modificati on) on Sun02/04/23 at 0800, Until Discontinu ed, Routine [facility] carvediloL (COREG) tablet 12.5 mg 02-03 16:30: 00 02-04 12:40 :41 No 12.5mg 12.5 mg, Oral, BID MEALS, First dose on Sun02/03/23 at 1130, Until Discontinu ed, Routine [facility] hydrALAZINE (APRESOLINE ) tablet 75 mg 02-02 23:00: 00 02-06 16:11 :05 No 75mg 75 mg, Oral, Q6H, First dose (after last modificati on) on Sun02/02/23 at 1800, Until Discontinu ed, Routine [facility] sennosides- docusate sodium (SENOKOT-S) 8.6-50 mg per tablet 1 tablet 02-02 17:00: 00 Yes 1{tbl} 1 tablet, Oral, BID, First dose on Sun02/02/23 at 1200, Until Discontinu ed, Routine [facility] polyethylen e glycol 3350 powder 17 g 02-02 17:00: 00 Yes 17g 17 g, Oral, DAILY, First dose on Sun02/02/23 at 1200, Until Discontinu ed, Routine [facility] furosemide (LASIX) injection 80 mg 02-02 14:00: 00 02-06 14:32 :30 No 80mg 80 mg, IV Push, QAM+PM, First dose (after last modificati on) on Sun02/02/23 at 0900, Until Discontinu ed, JUAN [facility] spironolact one (ALDACTONE) tablet 50 mg 02-02 14:00: 00 02-04 15:48 :23 No 50mg 50 mg, Oral, DAILY, First dose (after last modificati on) on Sun02/02/23 at 0900, Until Discontinu ed, [facility]sphere [facility] (DEFINITY) injection 2 mL 02-01 17:15: 00 02-01 17:15 :00 No [id number] 2mL 2 mL, IV Push, ONCE, 1 dose, On Sun02/01/23 at 1215, Routine [facility] hydrALAZINE (APRESOLINE ) tablet 50 mg 02-01 17:00: 00 02-02 17:59 :19 No 50mg 50 mg, Oral, Q6H, First dose (after last modificati on) on Sun02/01/23 at 1200, Until Discontinu ed, Routine [facility] spironolact one (ALDACTONE) tablet 25 mg 02-01 14:00: 00 02-02 12:22 :23 No 25mg 25 mg, Oral, DAILY, First dose (after last modificati on) on Sun02/01/23 at 0900, Until Discontinu ed, Routine [facility] atorvastati n (LIPITOR) tablet 80 mg 02-01 02:00: 00 Yes 80mg 80 mg, Oral, QHS, First dose (after last modificati on) on Sun01/31/23 at 2100, Until Discontinu ed, Routine [facility] hydrALAZINE (APRESOLINE ) tablet 25 mg 01-31 20:00: 00 02-01 13:14 :59 No 25mg 25 mg, Oral, Q6H, First dose on Sun01/31/23 at 1500, Until Discontinu ed, Routine [facility] spironolact one (ALDACTONE) tablet 12.5 mg 01-31 18:45: 00 02-01 11:40 :54 No 12.5mg 12.5 mg, Oral, DAILY, First dose on Sun01/31/23 at 1345, Until Discontinu ed, Routine [facility] amLODIPine (NORVASC) tablet 10 mg 01-31 14:00: 00 Yes 10mg 10 mg, Oral, DAILY, First dose on Sun01/31/23 at 0900, Until Discontinu ed, Routine [facility] aspirin chewable tablet 81 mg 01-31 14:00: 00 02-07 18:08 :07 No 81mg 81 mg, Oral, DAILY, First dose on Sun01/31/23 at 0900, Until Discontinu ed, Routine [facility] furosemide (LASIX) injection 40 mg 01-31 14:00: 00 02-02 13:05 :42 No 40mg 40 mg, IV Push, QAM+PM, First dose (after last reorder) on Sun01/31/23 at 0900, Until Discontinu ed, JUAN [facility] Sliding Scale Insulin - Lispro (HumaLOG) + Fsbg Testing 01-31 13:00: 00 Yes Subcutaneo us, TID MEALS+HS, First dose on Sun01/31/23 at 0800, Until Discontinu ed, Routine [facility] heparin (porcine) injection 5,000 Units 01-31 13:00: 00 02-08 11:53 :28 No 5000U 5,000 Units, Subcutaneo us, Q12H, First dose on Sun01/31/23 at 0800, Until Discontinu ed, Routine [facility] dextrose 10% (D10W) bolus infusion 250 mL [...] blood glucose is < 80 mg/dL, repeat.
[facility] glucagon (GLUCAGEN DIAGNOSTIC KIT) injection 1 mg 01-31 06:12: 08 Yes 1mg 1 mg, Intramuscu lar, PRN, Starting on Sun01/31/23 at 0112, Until Discontinu ed, JUAN, Blood Glucose < or = 70 mg/dL and patient is NPO, unable to swallow or has mental changes. [facility] acetaminoph en (TYLENOL) tablet 650 mg 01-31 05:09: 15 Yes 650mg 650 mg, Oral, Q6HPRN, Starting on Sun01/31/23 at 0009, Until Discontinu ed, Routine, Pain (scale 1-3) [facility] levoFLOXaci n in D5W (LEVAQUIN) 750 mg/150 mL Piggyback 750 mg 01-31 01:45: 00 01-31 03:42 :00 No 750mg 750 mg, IV Piggyback, ONCE, 1 dose, On Sun01/30/23 at 2045, Administer over 90 Minutes, 150 mL
Reas on for Anti-Infec tive: Documented Infection< br>Documen eulalio Infection Site: Respirator y
Durat ion of Therapy: 7 days [facility] aspirin tablet 325 mg 01-31 00:30: 00 01-30 23:44 :00 No 325mg 325 mg, Oral, ONCE, 1 dose, On Sun01/30/23 at 1930, Routine [facility] nitroglycer in (NITROL) 2 % ointment 0.5 Inch 01-30 23:45: 00 01-31 00:05 :00 No .5[in_u s] 0.5 Inch, Transderma l (Apply To Skin), ONCE, 1 dose, On Sun01/30/23 at 1845, JUAN [facility] furosemide (LASIX) injection 40 mg 01-30 23:45: 00 01-30 23:45 :00 No 40mg 40 mg, IV Push, ONCE, 1 dose, On Sun01/30/23 at 1845, JUAN [facility] hydroCHLORO thiazide 25 MG oral Tablet 12-06 00:00: 00 Yes [id number] 25mg Take 1 tablet (25 mg total) by mouth daily Sonia cheatham Metformin HCl ER 500 MG oral TABLET SR 24 HR 12-06 00:00: 00 Yes [id number] 3 1000mg Take 2 tablets (1,000 mg total) by mouth 2 times daily Sonia cheatham glipiZIDE 10 MG oral Tablet 12-06 00:00: 00 Yes [id number] 3 10mg Take 1 tablet (10 mg total) by mouth in the morning and 1 tablet (10 mg total) in the evening. Take before meals. Sonia cheatham Losartan Potassium (COZAAR) 100 MG oral Tablet 12-06 00:00: 00 Yes [id number] 100mg Take 1 tablet (100 mg total) by mouth daily Sonia cheatham Amlodipine Besylate 10 MG oral Tablet 12-06 00:00: 00 Yes [id number] 10mg Take 1 tablet (10 mg total) by mouth daily Sonia cheatham Atorvastati n Calcium 20 MG oral Tablet 12-06 00:00: 00 Yes [id number] 20mg Take 1 tablet (20 mg total) by mouth daily Sonia cheatham Amlodipine Besylate 10 MG oral Tablet 2021-10 00:00: 00 12-06 00:00 :00 No 10mg [...] Potassium (COZAAR) 100 MG oral Tablet 2021-10 00:00: 00 12-06 00:00 :00 No 100mg Take 100 mg by mouth daily Sonia cheatham Metformin HCl ER 500 MG oral TABLET SR 24 HR 2021-10 00:00: 00 12-06 00:00 :00 No 500mg Take 500 mg by mouth 2 times daily Sonia cheatham Dose Unknown 06-12 00:00: 00 No Dose Unknown 06-12 00:00: [...] Unknown 02-10 00:00: 00 No Dose Unknown 02-10 00:00: 00 No Dose Unknown 02-10 00:00: 00 No Dose Unknown 02-10 00:00: 00 No Dose Unknown 02-10 00:00: 00 No Dose Unknown 02-10 00:00: 00 No Dose Unknown 02-10 00:00: 00 No Dose Unknown 02-10 00:00: 00 No amlodipine 10 mg tablet 3-12 00:00: 00 No 1mg atorvastati n 10 mg tablet 3-12 00:00: 00 No 1mg Januvia 100 mg tablet 3-12 00:00: 00 No 1mg metformin 1,000 mg tablet 3- 00:00: 00 No 1mg amlodipine 10 mg tablet 3- 00:00: 00 No 1mg atorvastati n 10 mg tablet 3 00:00: 00 No 1mg Januvia 100 mg tablet 12-17 00:00: 00 No 1mg metformin 1,000 mg tablet 12-17 00:00: 00 No 1mg Sitagliptin Phosphate (Januvia) 100 MG oral Tablet 12-17 00:00: 00 Yes 1mg 1 mg Sonia Seybold - Externa l Blood Glucose Monitoring Suppl does not apply Kit 12-17 00:00: 00 11-16 00:00 :00 No 1{each} 1 each Sonia Seybold - Externa l Dose Unknown 3- 00:00: 00 No Januvia 25 mg tablet 3- 00:00: 00 No 1mg Dose Unknown 3-11 00:00: 00 No Dose Unknown 3- 00:00: 00 No Dose Unknown 3- 00:00: 00 No Januvia 25 mg tablet 3- 00:00: 00 No 1mg Dose Unknown 3-11 00:00: 00 No metformin 850 mg tablet 3-11 00:00: 00 No 1mg Dose Unknown 2-10 00:00: 00 No Dose Unknown 2-10 00:00: 00 No Dose Unknown 2-10 00:00: 00 No Dose Unknown 2-10 00:00: 00 No metformin 850 mg tablet 0 1-24 00:00: 00 No 1mg amlodipine 10 mg tablet 0 1-24 00:00: 00 No 1mg Dose Unknown 1-24 00:00: 00 No amlodipine 10 mg tablet 24 00:00: 00 No 1mg amLODIPine 10 mg tablet 2020-10 0- 00:00: 00 08-09 04:59 :00 No [id number] 10mg Take 1 tablet by mouth daily for 30 days. [facility] aspirin 81 mg chewable tablet 2020-10 0 00:00: 00 08-09 04:59 :00 No [id number] 81mg Take 1 tablet by mouth daily for 30 days. [facility] lisinopriL 40 mg tablet 2020-10 00:00: 08-09 04:59 :00 No [id number] 40mg Take 1 tablet by mouth daily for 30 days. [facility] amLODIPine (NORVASC) tablet 10 mg 2020-10 14:00: 00 Yes 10mg 10 mg, Oral, DAILY, First dose on Sun07/08/21 at 0900, Until Discontinu ed, Routine [facility] Blood-Gluco se Meter (RELION ALL-IN-ONE METER) Kit 2020-10 00:00: 00 Yes [id number] Use as directed [facility] Insulin [place], Disposable, (RELION NEEDLES) 31 gauge x 1/4" Ndle 2020-10 00:00: 00 Yes [id number] Use as directed [facility] atorvastati n 40 mg tablet 2020-10 0 00:00: 00 08-08 04:59 :00 No [id number] 40mg Take 1 tablet by mouth at bedtime for 30 days. [facility] glipiZIDE 10 mg tablet 2020-10 0 00:00: 00 08-08 04:59 :00 No [id number] 10mg Take 1 tablet by mouth 2 (two) times daily before breakfast and dinner for 30 days. [facility] insulin NPH and regular human 70-30 100 unit/mL (70-30) injection 2020-10 0 00:00: 00 08-08 04:59 :00 No [id number] 13U inject 13 Units under the skin every morning and evening for 30 days. [facility] metFORMIN 500 mg tablet 2020-10 00:00: 00 08-08 04:59 :00 No [id number] 500mg Take 1 tablet by mouth 2 (two) times daily with meals for 30 days. [facility] lactobacill us acidophilus 2020-10 00:00: 00 07-19 04:59 :00 No [id number] .5mg Take 1 tablet by mouth 2 (two) times daily for 10 days. [facility] amoxicillin 500 mg tablet 2020-10 00:00: 07-16 04:59 :00 No [id number] 500mg Take 1 tablet by mouth 2 (two) times daily for 7 days. [facility] HYDROcodone -acetaminop hen 5-325 mg tablet 2020-10 00:00: 00 07-14 04:59 :00 No [id number] 1{tbl} Take 1 tablet by mouth every 6 (six) hours as needed for Pain (scale 7-10) for up to 5 days. Indication s: acute pain [facility] lisinopriL (PRINIVIL,Z ESTRIL) tablet 40 mg 07-07 14:00: 00 Yes 40mg 40 mg, Oral, DAILY, First dose (after last modificati on) on Thuy 07/07/21 at 0900, Until Discontinu ed, Routine [facility] lactated ringers IV infusion 1,000 mL 07-07 13:45: 00 Yes 1000mL at 50 mL/hr, 1,000 mL, IV Infusion, CONTINUOUS , Starting on Sun07/07/21 at 0845, Until Discontinu ed, Routine, PACU [facility] HYDROmorphO ne (DILAUDID) injection 0.2 mg 07-07 13:35: 49 07-07 14:34 :40 No .2mg 0.2 mg, Slow IV Push, Q5MIN PRN, 10 doses, Starting on Sun07/07/21 at 0835, Until Sun07/07/21 at 0934, Routine, Pain (scale 7-10), PACU
Us e approved by (Faculty): PACU USE -ANESTHESI A SERVICE-HY DROMORPHON E INJECTIONS [facility] bupivacaine (preserv free) (SENSORCAIN E MPF) 0.25 % (2.5 mg/mL) 5 mL, lidocaine 1% (PF) (XYLOCAINE) 5 mL 07-07 13:14: 00 07-07 14:34 :40 No PRN, Starting on Sun07/07/21 at 0814, Intra-op [facility] benzocaine- menthoL (CEPACOL SORE THROAT (ANA LILIA-MEN)) lozenge 1 Lozenge 07-07 00:29: 57 Yes 1{lozen ge} 1 Lozenge, Oral, Q4HPRN, Starting on Sun07/06/21 at 1929, Until Discontinu ed, Routine, cough/sore throat [facility] insulin NPH and regular human 70-30 (HUMULIN 70-30 U-100 INSULIN) 100 unit/mL (70-30) injection 13 Units 07-06 22:00: 00 Yes 13U 13 Units, Subcutaneo us, QAM+PM, First dose on Sun07/06/21 at 1700, Until Discontinu ed, Routine [facility] lisinopriL (PRINIVIL,Z ESTRIL) tablet 20 mg 07-06 18:30: 00 07-06 18:54 :00 No 20mg 20 mg, Oral, ONCE NOW, 1 dose, On Sun07/06/21 at 1330, Routine [facility] No known medications 07-06 07:41: 15 No [facility] lactated ringers IV infusion 1,000 mL 07-06 00:15: 00 07-06 13:29 :01 No 1000mL at 100 mL/hr, 1,000 mL, IV Infusion, CONTINUOUS , Starting on Sun07/05/21 at 1915, Until Sun07/06/21 at 0829, Routine, PACU [facility] sodium chloride 0.9 % irrigation solution 07-06 00:09: 00 07-06 00:34 :57 No PRN, Starting on Sun07/05/21 at 1909, Until Sun07/05/21 at 1934, Intra-op [facility] bupivacaine (preserv free) 0.5% (SENSORCAIN E MPF) 0.5 % (5 mg/mL) injection 07-06 00:07: 00 07-06 00:34 :57 No PRN, Starting on Sun07/05/21 at 1907, Until Sun07/05/21 at 193, Routine, Intra-op [facility] lidocaine 1% (XYLOCAINE) 10 mg/mL (1 %) injection 07-05 23:22: 00 07-06 00:34 :57 No PRN, Starting on Sun07/05/21 at 1822, Until Sun07/05/21 at 193, Routine, Intra-op [facility] gadoteridol (PROHANCE-2 0 mL) injection 19.2 mL 07-05 14:45: 00 07-05 14:45 :00 No [id number] .2mL/kg 19.2 mL (0.2 mL/kg ?96 kg), Intravenou s, ONCE, 1 dose, On Sun07/05/21 at 0945, Routine [facility] vancomycin 1500 mg in NS 500 mL IV Piggyback RTU 1,500 mg 07-05 05:00: 00 Yes 1500mg 1,500 mg, IV Infusion, Q12H ABX, First dose on Sun07/05/21 at 0000, Until Discontinu ed, Administer over 90 Minutes
Reason for Anti-Infec tive: Documented Infection< br>Documen eulalio Infection Site: Wound
D uration of Therapy: 7 days [facility] metroNIDAZO LE (FLAGYL) tablet 500 mg 07-05 03:00: 00 Yes 500mg 500 mg, Oral, Q8H, First dose on Sun07/04/21 at 2200, Until Discontinu ed, Routine
Reason for Anti-Infec tive: Documented Infection< br>Documen eulalio Infection Site: Skin / Soft Tissue
Duration of Therapy: 7 days [facility] benzonatate (TESSALON PERLES) capsule 100 mg 07-05 01:20: 41 Yes 100mg 100 mg, Oral, TIDPRN, Starting on Sun07/04/21 at 2020, Until Discontinu ed, Routine, Cough [facility] HYDROcodone -acetaminop hen (NORCO) 10-325 mg tablet 1 tablet 07-05 01:20: 21 Yes 1{tbl} 1 tablet, Oral, Q6HPRN, Starting on Sun07/04/21 at 2020, Until Discontinu ed, Routine, Pain (scale 7-10) [facility] HYDROcodone -acetaminop hen (NORCO 5) 5-325 mg tablet 1 tablet 07-05 01:20: 07 Yes 1{tbl} 1 tablet, Oral, Q6HPRN, Starting on Sun07/04/21 at 2020, Until Discontinu ed, Routine, Pain (scale 4-6) [facility] lactobacill us acidophilus tablet 0.5 mg 07-05 01:00: 00 Yes .5mg 0.5 mg, Oral, BID, First dose on Sun07/04/21 at 2000, Until Discontinu ed, Routine [facility] ceFEPIme (MAXIPIME) 1,000 mg in NaCl 0.9% (NS) 50 mL MINI-BAG 07-04 21:30: 00 Yes 1000mg 1,000 mg, IV Piggyback, Q8H ABX, First dose on Sun07/04/21 at 1630, Until Discontinu ed, Administer over 30 Minutes, 50 mL
Reas on for Anti-Infec tive: Documented Infection< br>Documen eulalio Infection Site: Skin / Soft Tissue
Duration of Therapy: 7 days [facility] atorvastati n (LIPITOR) tablet 40 mg 07-04 02:00: 00 Yes 40mg 40 mg, Oral, QHS, First dose on Salix 07/03/21 at 2100, Until Discontinu ed, Routine [facility] vancomycin (VANCOCIN) 1,000 mg in NaCl 0.9% (NS) 250 mL VIAL-MATE IV piggyback 07-03 17:00: 00 07-04 22:34 :00 No 1000mg 1,000 mg, IV Piggyback, Q12H ABX, First dose (after last reorder) on Salix 07/03/21 at 1200, Until Discontinu ed, Administer over 60 Minutes, 250 mL
Reas on for Anti-Infec tive: Documented Infection< br>Documen eulalio Infection Site: Wound
D uration of Therapy: 7 days [facility] iopamidol (ISOVUE 370-500 mL) injection 100 mL 07-03 16:00: 00 07-03 14:35 :00 No [id number] 100mL 100 mL, Intravenou s, ONCE, 1 dose, On Salix 07/03/21 at 1100, Routine [facility] magnesium sulfate in water 2 gram/50 mL (4 %) infusion 2 g 07-03 14:30: 00 07-03 15:41 :00 No 2g 2 g, IV Piggyback, ONCE, 1 dose, On Salix 07/03/21 at 0930, Routine [facility] piperacilli n-tazobacta m (ZOSYN) 3.375 g in NaCl 0.9% (NS) 100 mL MINI-BAG 07-03 14:15: 00 07-04 20:21 :19 No 3.375g 3.375 g, IV Piggyback, Q6H ABX, First dose (after last reorder) on Salix 07/03/21 at 0915, Until Discontinu ed, Administer over 30 Minutes, 100 mL
Reas on for Anti-Infec tive: Documented Infection& lt;br>Docu mented Infection Site: Wound
D uration of Therapy: Other (see Comments) [facility] aspirin chewable tablet 81 mg 07-03 14:00: 00 Yes 81mg 81 mg, Oral, DAILY, First dose on Sun07/03/21 at 0900, Until Discontinu ed, Routine [facility] enoxaparin (LOVENOX) injection 40 mg 07-03 14:00: 00 Yes 40mg 40 mg, Subcutaneo us, DAILY, First dose on 07/03/21 at 0900, Until Discontinu ed, Routine [facility] NaCl 0.9% (NS) IV infusion 1,000 mL 07-03 13:15: 00 Yes 1000mL at 50 mL/hr, IV Infusion, CONTINUOUS , Starting on 07/03/21 at 0815, Until Discontinu ed, Routine [facility] docusate (COLACE) capsule 100 mg 07-03 13:00: 00 Yes 100mg 100 mg, Oral, BID, First dose on 07/03/21 at 0800, Until Discontinu ed, Routine [facility] lisinopriL (PRINIVIL,Z ESTRIL) tablet 20 mg 07-03 13:00: 00 07-06 17:22 :08 No 20mg 20 mg, Oral, BID, First dose on Sun07/03/21 at 0800, Until Discontinu ed, Routine [facility] glipiZIDE (GLUCOTROL) tablet 10 mg 07-03 12:30: 00 Yes 10mg 10 mg, Oral, BIDAC, First dose on Sun07/03/21 at 0730, Until Discontinu ed, Routine [facility] insulin NPH and regular human 70-30 (HUMULIN 70-30 U-100 INSULIN) 100 unit/mL (70-30) injection 10 Units 07-03 12:30: 00 07-04 13:29 :20 No 10U 10 Units, Subcutaneo us, BIDAC, First dose on Sun07/03/21 at 0730, Until Discontinu ed, Routine [facility] magnesium oxide (MAG-OX 400) tablet 400 mg 07-03 12:15: 00 Yes 400mg 400 mg, Oral, BID, First dose on 07/03/21 at 0715, Until Discontinu ed, Routine [facility] Sliding Scale Insulin - Lispro (HumaLOG) + Fsbg Testing 07-03 08:45: 00 Yes Subcutaneo us, TID MEALS, First dose on Sun07/03/21 at 0345, Until Discontinu ed, Routine [facility] ondansetron (ZOFRAN (PF)) injection 4 mg 07-03 08:30: 37 Yes 4mg 4 mg, Slow IV Push, Q6HPRN, Starting on Sun07/03/21 at 0330, Until Discontinu ed, Routine, Nausea and Vomiting (N/V) [facility] piperacilli n-tazobacta m (ZOSYN) 3.375 g in NaCl 0.9% (NS) 100 mL MINI-BAG 07-03 08:30: 00 07-03 08:16 :00 No 3.375g 3.375 g, IV Piggyback, ONCE, 1 dose, On Sun07/03/21 at 0330, Administer over 30 Minutes, 100 mL
Reas on for Anti-Infec tive: Documented Infection< br>Documen eulalio Infection Site: Wound
D uration of Therapy: Other (see Comments) [facility] glucagon (GLUCAGEN DIAGNOSTIC KIT) injection 1 mg 07-03 08:29: 07 Yes 1mg 1 mg, Intramuscu lar, PRN, Starting on Sun07/03/21 at 0329, Until Discontinu ed, JUAN, Blood Glucose < or = 70 mg/dL and patient is unable to swallow or has mental changes. [facility] dextrose 50 % in water (D50W) injection 25 mL 07-03 08:29: 07 Yes 25mL 25 mL, Slow IV Push, PRN, Starting on Sun07/03/21 at 0329, Until Discontinu ed, JUAN, Blood Glucose < or = 70 mg/dL and patient is unable to swallow or has mental status changes. [facility] labetaloL (NORMODYNE) injection 10 mg 07-03 08:00: 00 07-03 07:02 :00 No 10mg 10 mg, Slow IV Push, ONCE, 1 dose, On Sun07/03/21 at 0300, JUAN [facility] HYDROcodone -acetaminop hen (NORCO) 10-325 mg tablet 1 tablet 07-03 07:15: 00 07-03 06:13 :00 No 1{tbl} 1 tablet, Oral, ONCE, 1 dose, On Sun07/03/21 at 0215, Routine [facility] vancomycin 1500 mg in NS 500 mL IV Piggyback RTU 1,500 mg 07-03 07:00: 00 07-03 07:31 :00 No 15mg/kg 1,500 mg (rounded from 1,633.5 mg = 15 mg/kg ?108.9 kg), IV Piggyback, ONCE, 1 dose, On Sun07/03/21 at 0200, Administer over 90 Minutes
Reason for Anti-Infec tive: Documented Infection< br>Docu mented Infection Site: Wound
D uration of Therapy: 7 days [facility] NaCl 0.9% (NS) bolus infusion 1,000 mL 07-03 06:00: 00 07-03 07:55 :00 No 1000mL at 999 mL/hr, 1,000 mL, IV Infusion, ONCE, 1 dose, On Sun07/03/21 at 0100, STAT [facility] Novolin R Regular U-100 Insulin 100 [...] Value Comments S ource Systolic blood pressure 2024-10-10 21:45:00 138 mm[Hg] Sonia Seybo ld - External Diastolic blood pressure 2024-10-10 21:45:00 80 mm[Hg] Sonia Seybo ld - External Heart rate 2024-10-10 21:39:00 70 /min Kelse y Seybold - External Body temperature 2024-10-10 21:39:00 35.78 Rhonda Sonia Seybold - External Respiratory rate 2024-10-10 21:39:00 16 /min Sonia Seybold - External Body height 2024-10-10 21:39:00 162.6 cm Lorenza ey Seybold - External Body weight 2024-10-10 21:39:00 105.688 kg Lorenza ey Seybold - External BMI 2024-10-10 21:39:00 39.99 kg/m2 Lorenza ey Seybold - External Oxygen saturation in Arterial blood by Pulse oximetry 2024-10-10 21:39:00 98 /min Sonia Seybo ld - External Systolic blood pressure 2024-05-19 19:13:00 138 mm[Hg] Sonia Seybo ld - External Diastolic blood pressure 2024-05-19 19:13:00 68 mm[Hg] Sonia Seybo ld - External Heart rate 2024-05-19 18:28:00 70 /min Kelse y Seybold - External Body temperature 2024-05-19 18:28:00 36.17 [...] External Heart rate 2024-01-30 16:33:00 78 /min Ronaldse y Seybold - External Body temperature 2024-01-30 [...] External Respiratory rate 2023-11-16 14:21:00 20 /min Soina Seybold - External Body height 2023-11-16 14:21:00 162.6 cm Lorenza ey Seybold - External Body weight 2023-11-16 14:21:00 103.42 kg Lorenza ey Seybold - External BMI 2023-11-16 14:21:00 39.14 kg/m2 Lorenza ey Seybold - External Oxygen saturation in Arterial blood by Pulse oximetry 2023-11-16 14:21:00 91 /min Sonia Jacobybo ld - External Systolic blood pressure 2023-03-19 14:28:00 176 mm[Hg] Sonia Seybo ld - External Diastolic blood pressure 2023-03-19 14:28:00 88 mm[Hg] Sonia Seybo ld - External Heart rate 2023-03-19 14:28:00 92 /min Mireya y Seybold - External Body temperature 2023-03-19 [...] Systolic blood pressure 2023-02-09 16:14:00 113 mm[Hg] [facility] Diastolic blood pressure 2023-02-09 16:14:00 57 mm[Hg] [facility] Heart rate 2023-02-09 16:14:00 66 /min [facility] Body temperature 2023-02-09 16:14:00 36.17 Rhonda [facility] Respiratory rate 2023-02-09 16:14:00 18 /min [facility] Oxygen saturation in Arterial blood by Pulse oximetry 2023-02-09 16:14:00 93 /min [place] [facility] Body weight 2023-02-03 15:03:[address] [facility] BMI 2023-02-03 15:03:00 34.64 kg/m2 [facility] Body height 2023-01-31 04:48:[address] [facility] Body height 2022-12-06 20:48:00 170.2 cm Lorenza ey Seybold - External Systolic blood pressure 2022-12-06 20:20:00 154 mm[Hg] Sonia Seybo ld - External Diastolic blood pressure 2022-12-06 20:20:00 90 mm[Hg] Sonia Seybo ld - External Heart rate 2022-12-06 20:20:00 92 /min Kel y Seybold - External Body temperature 2022-12-06 20:20:00 37.11 Rhonda Sonia Jacobybold - External Respiratory rate 2022-12-06 20:20:00 14 /min Sonia Jacobybold - External Body weight 2022-12-06 20:20:00 105.688 kg Lorenza ey Seybold - External BMI 2022-12-06 20:20:00 36.49 kg/m2 Lorenza reed Seybold - External Oxygen saturation in Arterial blood by Pulse oximetry 2022-12-06 20:20:00 96 /min Sonia Kolbo ld - External Systolic blood pressure 2021-07-08 12:33:00 181 mm[Hg] [facility] Diastolic blood pressure 2021-07-08 12:33:00 86 mm[Hg] [facility] Heart rate 2021-07-08 12:33:00 79 /[facility] Body [facility] 2021-07-08 12:33:00 36.28 Rhonda [facility] Respiratory rate 2021-07-08 12:33:00 18 /min [facility] Oxygen saturation in Arterial blood by Pulse oximetry 2021-07-08 12:33:00 95 /min [facility] Body weight 2021-07-08 08:12:[address] [facility] BMI 2021-07-08 08:12:00 35.24 kg/m2 [facility] Body height 2021-07-06 12:41:[address] [facility] Systolic blood pressure 2021-07-07 14:15:00 142 mm[Hg] [facility] Diastolic blood pressure 2021-07-07 14:15:00 74 mm[Hg] [facility] Heart rate 2021-07-07 14:15:00 75 /min Unive [facility] Respiratory rate 2021-07-07 14:15:00 18 /min [facility] Oxygen saturation in Arterial blood by Pulse oximetry 2021-07-07 14:15:00 91 /min [facility] Body temperature 2021-07-07 13:30:00 36.11 Rhonda [facility] Body weight 2021-07-07 09:26:[address] [facility] BMI 2021-07-07 09:26:00 35.24 kg/m2 [facility] Body height 2021-07-06 12:41:[address] [facility] Systolic blood pressure 2021-07-05 20:29:00 177 mm[Hg] [facility] Diastolic blood pressure 2021-07-05 20:29:00 83 mm[Hg] [facility] Heart rate 2021-07-05 20:29:00 98 /min Unive [facility] Body temperature 2021-07-05 20:29:00 37.22 Rhonda [facility] Oxygen saturation in Arterial blood by Pulse oximetry 2021-07-05 20:29:00 98 /min [facility] Respiratory rate 2021-07-05 09:46:00 20 /min [facility] Body weight 2021-07-05 09:46:[address] [facility] BMI 2021-07-05 09:46:00 34.18 kg/m2 [facility] Body height 2021-07-04 13:04:[address] [facility] BP Systolic 2022-09-09 11:01:00 206 mm[Hg] [...] [facility] VERIFYNOW ASPIRIN TEST 2023-02-09 14:40:00 Hamilton Orozco [facility] POCT GLUCOSE (AUTOMATED) 2023-02-09 12:41:00 Thompson Walker [facility] PHOSPHORUS 2023-02-09 10:08:00 Dee Desai [facility] MAGNESIUM 2023-02-09 10:08:00 Dee Desai [facility] BASIC METABOLIC PANEL (NA, K, CL, CO2, GLUCOSE, BUN, CREATININE, CA) 2023-02-09 10:08:00 [facility] 2023-02-09 10:08:00 Dee Desai [facility] PROTHROMBIN TIME / INR 2023-02-09 10:08:00 Vale Desai [facility] ACTIVATED PARTIAL THRMPLAS TAMI 2023-02-09 10:08:00 Lloyd [facility] POCT GLUCOSE (AUTOMATED) 2023-02-09 01:26:00 Denise [facility] POCT GLUCOSE (AUTOMATED) 2023-02-08 22:00:00 Denise [facility] VERIFYNOW ASPIRIN TEST 2023-02-08 21:37:00 Hamilton Orozco [facility] POCT GLUCOSE (AUTOMATED) 2023-02-08 18:15:00 Denise [facility] POCT GLUCOSE (AUTOMATED) 2023-02-08 13:22:00 Thompson Walker [facility] PHOSPHORUS 2023-02-08 10:05:00 Dee Desai [facility] MAGNESIUM 2023-02-08 10:05:00 [facility] BASIC METABOLIC PANEL (NA, K, CL, CO2, GLUCOSE, BUN, CREATININE, CA) 2023-02-08 10:05:00 Rudolph [facility] CBC WITH DIFF 2023-02-08 10:05:00 Rudolph raheem [facility] POCT GLUCOSE (AUTOMATED) 2023-02-08 01:10:00 Denise [facility] POCT GLUCOSE (AUTOMATED) 2023-02-07 23:01:00 Denise [facility] POCT GLUCOSE (AUTOMATED) 2023-02-07 13:43:00 Denise [facility] HB ECG ROUTINE & RHYTHM STRIP 2023-02-07 13:36:00 Yadiel Rogers [facility] MAGNESIUM 2023-02-07 09:22:00 Rudolph raheem [facility] BASIC METABOLIC PANEL (NA, K, CL, CO2, GLUCOSE, BUN, CREATININE, CA) 2023-02-07 09:22:00 Rudolph [facility] CBC WITH DIFF 2023-02-07 09:22:00 Rudolph [facility] POCT GLUCOSE (AUTOMATED) 2023-02-07 01:33:00 DeniseThompson [facility] POCT GLUCOSE (AUTOMATED) 2023-02-06 21:34:00 Denise [facility] POCT GLUCOSE (AUTOMATED) 2023-02-06 16:47:00 Denise Thompson [facility] HB ECG ROUTINE & RHYTHM STRIP 2023-02-06 13:01:37 Yadiel Rogers [facility] POCT GLUCOSE (AUTOMATED) 2023-02-06 12:44:00 Denise [facility] LUPUS ANTICOAGULANT REFLEXIVE PANEL 2023-02-06 11:01:00 Gianluca Araujo [facility] HEPATITIS B SURFACE ANTIBODY 2023-02-06 11:00:00 Rudolph [facility] HEPATITIS B SURFACE ANTIGEN 2023-02-06 11:00:00 Rudolph [facility] HBC ANTIBODY (IGM & IGG) 2023-02-06 11:00:00 Ann Gaviria [facility] ANTICARDIOLIPIN ANTIBODIES 2023-02-06 11:00:00 Ayaka Gaviria [facility] ANTI-B2 GLYCOPROTEIN I AB 2023-02-06 11:00:00 Jersey Gaviria [facility] HEPATITIS C VIRUS (HCV) BY QUANTITATIVE NAAT 2023-02-06 11:00:00 Rudolph [facility] ANTIPHOSPHOLIPID ANTIBODY EVALUATION-SST 2023-02-06 11:00:00 Rudolph [facility] MAGNESIUM 2023-02-06 10:59:00 Rudolph [facility] BASIC METABOLIC PANEL (NA, K, CL, CO2, GLUCOSE, BUN, CREATININE, CA) 2023-02-06 10:59:00 Rudolph [facility] CBC WITH DIFF 2023-02-06 10:59:00 [facility] POCT GLUCOSE (AUTOMATED) 2023-02-06 01:30:00 WalkerThompson [facility] POCT GLUCOSE (AUTOMATED) 2023-02-05 21:14:00 Walker [facility] NM MYOCARDIUM PERFUSION STRESS AND REST 2023-02-05 20:29:00 Denise [facility] POCT GLUCOSE (AUTOMATED) 2023-02-05 16:26:00 Denise [facility] RENAL ARTERY DUPLEX - BY VASCULAR LAB 2023-02-05 15:53:21 Denise [facility] UPPER EXTREMITY ARTERIAL DUPLEX BILATERAL - BY VASCULAR LAB 2023-02-05 15:53:16 Denise [facility] HB ECG ROUTINE & RHYTHM STRIP 2023-02-05 13:35:02 Yadiel Rogers [facility] POCT GLUCOSE (AUTOMATED) 2023-02-05 13:13:00 Denise [facility] MAGNESIUM 2023-02-05 09:51:00 Ethan Lau [facility] BASIC METABOLIC PANEL (NA, K, CL, CO2, GLUCOSE, BUN, CREATININE, CA) 2023-02-05 09:51:00 Ethan Lau [facility] POCT GLUCOSE (AUTOMATED) 2023-02-05 02:01:00 Denise [facility] POCT GLUCOSE (AUTOMATED) 2023-02-04 21:50:00 Denise [facility] POCT GLUCOSE (AUTOMATED) 2023-02-04 17:08:00 Denise [facility] HB ECG ROUTINE & RHYTHM STRIP 2023-02-04 13:43:37 Yadiel Rogers [facility] POCT GLUCOSE (AUTOMATED) 2023-02-04 12:42:00 Denise [facility] MAGNESIUM 2023-02-04 09:41:00 Deborah Donahue [facility] BASIC METABOLIC PANEL (NA, K, CL, CO2, GLUCOSE, BUN, CREATININE, CA) 2023-02-04 09:41:00 Deborah Donahue [facility] CBC WITH DIFF 2023-02-04 09:41:00 Deborah [facility] POCT GLUCOSE (AUTOMATED) 2023-02-04 01:34:00 Thompson Walker [facility] POCT GLUCOSE (AUTOMATED) 2023-02-03 22:23:00 Denise Fat lisa [facility] ALDOSTERONE, SERUM 2023-02-03 21:50:00 Jaz Walker [facility] CORTISOL AM 2023-02-03 21:49:00 Jaz Walker [facility] POCT GLUCOSE (AUTOMATED) 2023-02-03 16:49:00 Thompson Walker lisa [facility] POCT GLUCOSE (AUTOMATED) 2023-02-03 13:19:00 Thompson Walker lisa [facility] ELECTROPHORESIS, SERUM 2023-02-03 10:05:00 Libra Landeros [facility] MAGNESIUM 2023-02-03 10:04:00 Libra Landeros [facility] BASIC METABOLIC PANEL (NA, K, CL, CO2, GLUCOSE, BUN, CREATININE, CA) 2023-02-03 10:04:00 Libra Landeros [facility] CBC WITHOUT DIFF 2023-02-03 10:04:[address] [facility] ANTI-NUCLEAR ANTIBODY SCREEN 2023-02-03 10:04:00 Ethan Lau [facility] ANTI-NUCLEAR ANTIBODY TITER 2023-02-03 10:04:00 Ethan Lau [facility] IMMUNOFIXATION, SERUM 2023-02-03 10:04:00 Ethan Lau [facility] ANTI-NUCLEAR ANTIBODY-PATHOLOGIST INTERPRETATION 2023-02-03 10:04:00 Ethan Lau [facility] POCT GLUCOSE (AUTOMATED) 2023-02-03 02:15:00 Thompson Walker lisa [facility] POCT GLUCOSE (AUTOMATED) 2023-02-02 22:14:00 Denise Fat lisa [facility] POCT GLUCOSE (AUTOMATED) 2023-02-02 17:14:00 Denise Fat lisa [facility] IMMUNOFIXATION, URINE FOR PANEL 2023-02-02 16:11:00 Ethan Lau [facility] ELECTROPHORESIS, SERUM 2023-02-02 16:11:00 Libra Landeros [facility] IMMUNOFIXATION, SERUM 2023-02-02 16:11:00 Ethan Lau [facility] HB ECG ROUTINE & RHYTHM STRIP 2023-02-02 12:48:22 Yadiel Rogers [facility] POCT GLUCOSE (AUTOMATED) 2023-02-02 12:36:00 Thompson Walker [facility] MAGNESIUM 2023-02-02 09:00:00 Ethan Lau [facility] BASIC METABOLIC PANEL (NA, K, CL, CO2, GLUCOSE, BUN, CREATININE, CA) 2023-02-02 09:00:00 Ethan Lau [facility] CBC WITHOUT DIFF 2023-02-02 09:00:[address] [facility] POCT GLUCOSE (AUTOMATED) 2023-02-02 01:14:00 Thompson Walker [facility] POCT GLUCOSE (AUTOMATED) 2023-02-01 21:58:00 Thompson Walker lisa [facility] TRANSTHORACIC ECHO (TTE) COMPLETE W/ CONTRAST 2023-02-01 16:57:00 Yadiel Rogers [facility] POCT GLUCOSE (AUTOMATED) 2023-02-01 16:20:00 Thompson Walker lisa [facility] HB ECG ROUTINE & RHYTHM STRIP 2023-02-01 13:16:33 Yadiel Rogers [facility] POCT GLUCOSE (AUTOMATED) 2023-02-01 12:50:00 Thompson Walker [facility] MAGNESIUM 2023-02-01 10:42:00 Libra Landeros [facility] BASIC METABOLIC PANEL (NA, K, CL, CO2, GLUCOSE, BUN, CREATININE, CA) 2023-02-01 10:42:00 Libra Landeros [facility] CBC WITHOUT DIFF 2023-02-01 10:42:00 Libra Landeros [facility] US RETROPERITONEAL LIMITED 2023-02-01 07:52:11 Yadiel Rogers [facility] MICROALBUMIN URINE 2023-02-01 05:17:00 Destin Barrett [facility] URINALYSIS 2023-02-01 05:17:00 Ethan Lau [facility] PROTEIN CREAT RATIO URINE RANDOM 2023-02-01 05:17:00 Ethan Lau [facility] UREA NITROGEN, URINE RANDOM 2023-02-01 05:17:00 Ethan Lau [facility] POCT GLUCOSE (AUTOMATED) 2023-02-01 01:48:00 Thompson Walker [facility] POCT GLUCOSE (AUTOMATED) 2023-01-31 21:12:00 Denise [facility] POCT GLUCOSE (AUTOMATED) 2023-01-31 16:41:00 Denise [facility] HB ECG ROUTINE & RHYTHM STRIP 2023-01-31 12:57:41 Ken [facility] POCT GLUCOSE (AUTOMATED) 2023-01-31 12:54:00 Thompson Walker [facility] MAGNESIUM 2023-01-31 08:53:00 [facility] TROPONIN I 2023-01-31 08:53:00 Ken [facility] THYROID STIMULATING HORMONE 2023-01-31 08:53:00 Deborah Donahue [facility] BASIC METABOLIC PANEL (NA, K, CL, CO2, GLUCOSE, BUN, CREATININE, CA) 2023-01-31 08:53:00 Yadiel Rogers [facility] LIPID PANEL (51768)(TOTAL CHOLESTEROL, TRIGLYCERIDES, HDL) 2023-01-31 08:53:00 Ethan Lau [facility] CBC WITH DIFF 2023-01-31 08:53:[address] [facility] GLYCOSYLATED HEMOGLOBIN (A1C) 2023-01-31 08:53:00 Ethan Lau [facility] XR CHEST 2 VW 2023-01-30 23:58:54 Micah Novoa [facility] COVID-19 (ID NOW RAPID TESTING) 2023-01-30 23:36:00 Micah Novoa [facility] LAB ONLY COVID INTERPRETATION 2023-01-30 23:36:00 Micah Novoa [facility] PHOSPHORUS 2023-01-30 23:33:00 [facility] FERRITIN SERUM 2023-01-30 23:33:00 Yadiel Rogers [facility] TROPONIN I 2023-01-30 23:33:00 Micah Novoa [facility] FREE T4 2023-01-30 23:33:00 Deborah Donahue [facility] COMP. METABOLIC PANEL (98263) 2023-01-30 23:33:00 Micah Novoa [facility] IRON PANEL 2023-01-30 23:33:00 [facility] CBC WITH DIFF 2023-01-30 23:33:00 [facility]-TERMINAL PRO-BNP 2023-01-30 23:33:00 Micah Novoa [facility] EKG-12 LEAD 2023-01-30 23:15:54 Gianluca Araujo [facility] NOTICE OF PRIVACY PRACTICES 2023-01-30 23:05:03 Doctor Unassigned, [place] [facility] CONSENT/REFUSAL FOR DIAGNOSIS AND TREATMENT 2023-01-30 23:04:08 Doctor Unassigned, [place] [facility] HOSPITAL ADMISSION 2023-01-30 05:01:00 Doctor Un assigned, [place] [facility] Ekg W/ At Least 12 Leads W/ I r 2021-12-17 00:00:00 POCT GLUCOSE (AUTOMATED) 2021-07-08 16:44:00 Winnie Villatoro [facility] POCT GLUCOSE (AUTOMATED) 2021-07-08 16:44:00 Winnie Villatoro [facility] POCT GLUCOSE (AUTOMATED) 2021-07-08 12:35:00 Winnie Villatoro [facility] POCT GLUCOSE (AUTOMATED) 2021-07-08 12:35:00 Winnie Villatoro [facility] POCT GLUCOSE (AUTOMATED) 2021-07-07 22:13:00 Winnie Villatoro [facility] POCT GLUCOSE (AUTOMATED) 2021-07-07 22:13:00 Winnie Villatoro [facility] POCT GLUCOSE (AUTOMATED) 2021-07-07 16:41:00 Winnie Villatoro [facility] POCT GLUCOSE (AUTOMATED) 2021-07-07 16:41:00 Winnie Villatoro [facility] POCT GLUCOSE (AUTOMATED) 2021-07-07 14:52:00 Winnie Villatoro [facility] POCT GLUCOSE (AUTOMATED) 2021-07-07 14:52:00 Winnie Villatoro [facility] CLOSURE SURGICAL WOUND LOWER EXTREMITY 2021-07-07 12:40:00 Nomi Robles [facility] CLOSURE SURGICAL WOUND LOWER EXTREMITY 2021-07-07 12:40:00 Nomi Robles [facility] POCT GLUCOSE (AUTOMATED) 2021-07-07 12:20:00 Gm De Los Santos [facility] POCT GLUCOSE (AUTOMATED) 2021-07-07 12:20:00 Gm De Los Santos [facility] BASIC METABOLIC PANEL (NA, K, CL, CO2, GLUCOSE, BUN, CREATININE, CA) 2021-07-07 10:27:00 Madie Orozco [facility] CBC WITH DIFF 2021-07-07 10:27:00 Madie Orozco [facility] BASIC METABOLIC PANEL (NA, K, CL, CO2, GLUCOSE, BUN, CREATININE, CA) 2021-07-07 10:27:00 Madie Orozco Jayda [facility] CBC WITH DIFF 2021-07-07 10:27:00 Madie Orozco [facility] POCT GLUCOSE (AUTOMATED) 2021-07-07 05:05:00 Gm De Los Santos [facility] POCT GLUCOSE (AUTOMATED) 2021-07-07 05:05:00 Gm De Los Santos [facility] POCT GLUCOSE (AUTOMATED) 2021-07-06 21:32:00 Gm De Los Santos [facility] POCT GLUCOSE (AUTOMATED) 2021-07-06 21:32:00 Magali suly [facility] CBC WITH DIFF 2021-07-06 18:42:[address] [facility] CBC WITH DIFF 2021-07-06 18:42:[address] [facility] CBC WITH DIFF 2021-07-06 18:42:[address] [facility] POCT GLUCOSE (AUTOMATED) 2021-07-06 16:30:00 [facility] POCT GLUCOSE (AUTOMATED) 2021-07-06 16:30:00 [facility] POCT GLUCOSE (AUTOMATED) 2021-07-06 16:30:00 [facility] VANCOMYCIN TROUGH 2021-07-06 15:35:00 Rebecca Lazo [facility] VANCOMYCIN TROUGH 2021-07-06 15:35:00 Rebecca Lazo [facility] VANCOMYCIN TROUGH 2021-07-06 15:35:00 Rebecca Lazo [facility] POCT GLUCOSE (AUTOMATED) 2021-07-06 12:37:00 [facility] POCT GLUCOSE (AUTOMATED) 2021-07-06 12:37:00 [facility] POCT GLUCOSE (AUTOMATED) 2021-07-06 12:37:00 [facility] COMP. METABOLIC PANEL (09227) 2021-07-06 11:07:00 [facility] COMP. METABOLIC PANEL ([id number]) 2021-07-06 11:07:00 [facility] COMP. METABOLIC PANEL ([id number]) 2021-07-06 11:07:00 [facility] SURGICAL PATHOLOGY EXAM 2021-07-05 23:42:00 Hector Robles [facility] SURGICAL PATHOLOGY EXAM 2021-07-05 23:42:00 Hector Robles [facility] TOE AMPUTATION 2021-07-05 22:59:00 [facility] 2021-07-05 22:59:00 Nomi Robles E Uni [facility] POCT GLUCOSE (AUTOMATED) 2021-07-05 20:33:00 [facility] POCT GLUCOSE (AUTOMATED) 2021-07-05 20:33:00 [facility] POCT GLUCOSE (AUTOMATED) 2021-07-05 20:33:00 [facility] POCT GLUCOSE (AUTOMATED) 2021-07-05 16:17:00 [facility] POCT GLUCOSE (AUTOMATED) 2021-07-05 16:17:00 [facility] POCT GLUCOSE (AUTOMATED) 2021-07-05 16:17:00 [facility] MR FOOT RIGHT W WO CONTRAST 2021-07-05 14:37:38 [facility] MR FOOT RIGHT W WO CONTRAST 2021-07-05 14:37:38 [facility] MR FOOT RIGHT W WO CONTRAST 2021-07-05 14:37:38 [facility] POCT GLUCOSE (AUTOMATED) 2021-07-05 12:12:00 [facility] POCT GLUCOSE (AUTOMATED) 2021-07-05 12:12:00 [facility] POCT GLUCOSE (AUTOMATED) 2021-07-05 12:12:00 [facility] MAGNESIUM 2021-07-05 10:00:00 [facility] COMP. METABOLIC PANEL ([id number]) 2021-07-05 10:00:00 Magali suly [facility] CBC WITH DIFF 2021-07-05 10:00:00 Gm [facility] N-TERMINAL PRO-BNP 2021-07-05 10:00:00 Magali suly [facility] MAGNESIUM 2021-07-05 10:00:00 Gm De Los Santos [facility] COMP. METABOLIC PANEL ([id number]) 2021-07-05 10:00:00 [facility] CBC WITH DIFF 2021-07-05 10:00:00 Gm [facility] N-TERMINAL PRO-BNP 2021-07-05 10:00:00 [facility] MAGNESIUM 2021-07-05 10:00:00 Gm De Los Santos [facility] COMP. METABOLIC PANEL ([id number]) 2021-07-05 10:00:00 [facility] CBC WITH DIFF 2021-07-05 10:00:00 Gm [facility] N-TERMINAL PRO-BNP 2021-07-05 10:00:00 [facility] POCT GLUCOSE (AUTOMATED) 2021-07-05 00:13:00 [facility] POCT GLUCOSE (AUTOMATED) 2021-07-05 00:13:00 [facility] POCT GLUCOSE (AUTOMATED) 2021-07-05 00:13:00 [facility] POCT GLUCOSE (AUTOMATED) 2021-07-04 21:21:00 [facility] POCT GLUCOSE (AUTOMATED) 2021-07-04 21:21:00 [facility] POCT GLUCOSE (AUTOMATED) 2021-07-04 21:21:00 [facility] WOUND CULTURE 2021-07-04 19:28:00 Jo-Ann King [facility] WOUND CULTURE 2021-07-04 19:28:00 Jo-Ann [address] [facility] WOUND CULTURE 2021-07-04 19:28:[address] Jo-Ann [address] [facility] POCT GLUCOSE (AUTOMATED) 2021-07-04 16:26:00 [facility] POCT GLUCOSE (AUTOMATED) 2021-07-04 16:26:00 [facility] POCT GLUCOSE (AUTOMATED) 2021-07-04 16:26:00 Gm De Los Santos [facility] VANCOMYCIN TROUGH 2021-07-04 15:39:00 Gm De Los Santos [facility] VANCOMYCIN TROUGH 2021-07-04 15:39:00 Gm De Los Santos [facility] VANCOMYCIN TROUGH 2021-07-04 15:39:00 Gm De Los Santos [facility] POCT GLUCOSE (AUTOMATED) 2021-07-04 12:21:00 [facility] POCT GLUCOSE (AUTOMATED) 2021-07-04 12:21:00 [facility] POCT GLUCOSE (AUTOMATED) 2021-07-04 12:21:00 Magali suly [facility] PHOSPHORUS 2021-07-04 10:12:00 Gm De Los Santos [facility] MAGNESIUM 2021-07-04 10:12:00 Magali suly [facility] COMP. METABOLIC PANEL ([id number]) 2021-07-04 10:12:00 [facility] CBC WITH DIFF 2021-07-04 10:12:00 Gm [facility] N-TERMINAL PRO-BNP 2021-07-04 10:12:00 Gm De Los Santos [facility] PHOSPHORUS 2021-07-04 10:12:00 Gm De Los Santos [facility] MAGNESIUM 2021-07-04 10:12:00 Magali suly [facility] COMP. METABOLIC PANEL ([id number]) 2021-07-04 10:12:00 [facility] CBC WITH DIFF 2021-07-04 10:12:00 Gm [facility] N-TERMINAL PRO-BNP 2021-07-04 10:12:00 [facility] PHOSPHORUS 2021-07-04 10:12:00 Magali suly [facility] MAGNESIUM 2021-07-04 10:12:00 [facility] COMP. METABOLIC PANEL ([id number]) 2021-07-04 10:12:00 [facility] CBC WITH DIFF 2021-07-04 10:12:00 Gm [facility] N-TERMINAL PRO-BNP 2021-07-04 10:12:00 [facility] POCT GLUCOSE (AUTOMATED) 2021-07-04 00:24:00 [facility] POCT GLUCOSE (AUTOMATED) 2021-07-04 00:24:00 [facility] POCT GLUCOSE (AUTOMATED) 2021-07-04 00:24:00 [facility] POCT GLUCOSE (AUTOMATED) 2021-07-03 21:30:00 [facility] POCT GLUCOSE (AUTOMATED) 2021-07-03 21:30:00 [facility] POCT GLUCOSE (AUTOMATED) 2021-07-03 21:30:00 [facility] POCT GLUCOSE (AUTOMATED) 2021-07-03 16:19:00 [facility] POCT GLUCOSE (AUTOMATED) 2021-07-03 16:19:00 [facility] POCT GLUCOSE (AUTOMATED) 2021-07-03 16:19:00 [facility] VITAMIN B12, LEVEL 2021-07-03 14:59:00 [facility] C-REACTIVE PROTEIN 2021-07-03 14:59:00 [facility] VITAMIN D, 25-OH 2021-07-03 14:59:00 Magali suly [facility] VITAMIN B12, LEVEL 2021-07-03 14:59:00 [facility] C-REACTIVE PROTEIN 2021-07-03 14:59:00 Gm De Los Santos [facility] VITAMIN D, 25-OH 2021-07-03 14:59:00 Gm De Los Santos [facility] VITAMIN B12, LEVEL 2021-07-03 14:59:00 Gm De Los Santos [facility] C-REACTIVE PROTEIN 2021-07-03 14:59:00 Gm De Los Santos [facility] VITAMIN D, 25-OH 2021-07-03 14:59:00 Gm De Los Santos [facility] IRON PANEL 2021-07-03 14:58:00 Gm De Los Santos [facility] PROCALCITONIN 2021-07-03 14:58:00 Gm [facility] IRON PANEL 2021-07-03 14:58:00 Gm De Los Santos [facility] PROCALCITONIN 2021-07-03 14:58:00 Gm [facility] IRON PANEL 2021-07-03 14:58:00 Gm De Los Santos [facility] PROCALCITONIN 2021-07-03 14:58:00 Gm [facility] PROTHROMBIN TIME / INR 2021-07-03 14:57:00 Lasha De Los Santos [facility] PROTHROMBIN TIME / INR 2021-07-03 14:57:00 Lasha De Los Santos [facility] PROTHROMBIN TIME / INR 2021-07-03 14:57:00 Lasha De Los Santos [facility] CT FOOT RIGHT W CONTRAST 2021-07-03 14:46:22 Gm De Los Santos [facility] CT FOOT RIGHT W CONTRAST 2021-07-03 14:46:22 Gm De Los Santos [facility] CT FOOT RIGHT W CONTRAST 2021-07-03 14:46:22 Gm De Los Santos [facility] LOWER EXTREMITY ARTERIAL DUPLEX BILATERAL - BY VASCULAR LAB 2021-07-03 14:14:20 Gm De Los Santos [facility] LOWER EXTREMITY ARTERIAL DUPLEX BILATERAL - BY VASCULAR LAB 2021-07-03 14:14:20 [facility]REM[facility] ARTERIAL DUPLEX BILATERAL - BY VASCULAR LAB 2021-07-03 14:14:20 [facility] DUPLEX VENOUS LEGS BILATERAL - BY VASCULAR LAB 2021-07-03 14:14:15 [facility] DUPLEX VENOUS LEGS BILATERAL - BY VASCULAR LAB 2021-07-03 14:14:15 [facility] DUPLEX VENOUS LEGS BILATERAL - BY VASCULAR LAB 2021-07-03 14:14:15 [facility] POCT GLUCOSE (AUTOMATED) 2021-07-03 12:36:00 [facility] POCT GLUCOSE (AUTOMATED) 2021-07-03 12:36:00 [facility] POCT GLUCOSE (AUTOMATED) 2021-07-03 12:36:00 Magali suly [facility] URINALYSIS 2021-07-03 06:43:00 [facility]og [facility] URINE CULTURE 2021-07-03 06:43:[address] [facility] URINALYSIS 2021-07-03 06:43:00 Wong [facility] URINE CULTURE 2021-07-03 06:43:[address] [facility] URINALYSIS 2021-07-03 06:43:00 [facility] URINE CULTURE 2021-07-03 06:43:[address] [facility] LACTIC ACID WHOLE BLOOD 2021-07-03 06:15:00 Wong Santo [facility] LACTIC ACID WHOLE BLOOD 2021-07-03 06:15:00 Wong Santo [facility] LACTIC ACID WHOLE BLOOD 2021-07-03 06:15:00 Wong Santo [facility] XR FOOT 3+ VW RIGHT 2021-07-03 06:08:43 Wong Santo [facility] XR FOOT 3+ VW RIGHT 2021-07-03 06:08:43 Wong Santo [facility] XR FOOT 3+ VW RIGHT 2021-07-03 06:08:43 Wong Santo [facility] PHOSPHORUS 2021-07-03 05:59:00 Gm De Los Santos [facility] CREATINE KINASE 2021-07-03 05:59:00 Gm De Los Santos [facility] URIC ACID 2021-07-03 05:59:00 Gm De Los Santos [facility] MAGNESIUM 2021-07-03 05:59:00 Gm De Los Santos [facility] FERRITIN SERUM 2021-07-03 05:59:[address] [facility] TROPONIN I 2021-07-03 05:59:00 Wong [facility] THYROID STIMULATING HORMONE 2021-07-03 05:59:00 Magali suly [facility] COMP. METABOLIC PANEL ([id number]) 2021-07-03 05:59:00 Wong Santo [facility] LIPID PANEL ([id number])(TOTAL CHOLESTEROL, TRIGLYCERIDES, HDL) 2021-07-03 05:59:00 [facility] SEDIMENTATION RATE 2021-07-03 05:59:00 Magali suly [facility] CBC WITH DIFF 2021-07-03 05:59:[address] [facility] GLYCOSYLATED HEMOGLOBIN (A1C) 2021-07-03 05:59:00 Magali suly [facility] N-TERMINAL PRO-BNP 2021-07-03 05:59:00 Gm De Los Santos [facility] PHOSPHORUS 2021-07-03 05:59:00 Gm De Los Santos [facility] CREATINE KINASE 2021-07-03 05:59:00 Gm De Los Santos [facility] URIC ACID 2021-07-03 05:59:00 Gm De Los Santos [facility] MAGNESIUM 2021-07-03 05:59:00 Gm De Los Santos [facility] FERRITIN SERUM 2021-07-03 05:59:[address] [facility] TROPONIN I 2021-07-03 05:59:00 Wong Santo [facility] THYROID STIMULATING HORMONE 2021-07-03 05:59:00 [facility] COMP. METABOLIC PANEL ([id number]) 2021-07-03 05:59:00 Wong Santo [facility] LIPID PANEL ([id number])(TOTAL CHOLESTEROL, TRIGLYCERIDES, HDL) 2021-07-03 05:59:00 [facility] SEDIMENTATION RATE 2021-07-03 05:59:00 [facility] CBC WITH DIFF 2021-07-03 05:59:[address] [facility] GLYCOSYLATED HEMOGLOBIN (A1C) 2021-07-03 05:59:00 [facility] N-TERMINAL PRO-BNP 2021-07-03 05:59:00 [facility] PHOSPHORUS 2021-07-03 05:59:00 [facility] CREATINE KINASE 2021-07-03 05:59:00 Gm De Los Santos [facility] URIC ACID 2021-07-03 05:59:00 Gm De Los Santos [facility] MAGNESIUM 2021-07-03 05:59:00 Gm De Los Santos [facility] FERRITIN SERUM 2021-07-03 05:59:[address] [facility] TROPONIN I 2021-07-03 05:59:00 [facility] THYROID STIMULATING HORMONE 2021-07-03 05:59:00 [facility] COMP. METABOLIC PANEL (16510) 2021-07-03 05:59:00 Wong Santo [facility] LIPID PANEL (57148)(TOTAL CHOLESTEROL, TRIGLYCERIDES, HDL) 2021-07-03 05:59:00 Gm De Los Santos [facility] SEDIMENTATION RATE 2021-07-03 05:59:00 Gm De Los Santos [facility] CBC WITH DIFF 2021-07-03 05:59:[address] [facility] GLYCOSYLATED HEMOGLOBIN (A1C) 2021-07-03 05:59:00 Gm De Los Santos [facility] N-TERMINAL PRO-BNP 2021-07-03 05:59:00 Gm De Los Santos [facility] BLOOD CULTURE SCREEN 2021-07-03 05:58:00 Wong Santo [facility] COVID-19 (ID NOW RAPID TESTING) 2021-07-03 05:58:00 Wong Santo [facility] LAB ONLY COVID INTERPRETATION 2021-07-03 05:58:00 Wong Santo [facility] BLOOD CULTURE SCREEN 2021-07-03 05:58:00 Wong Santo [facility] COVID-19 (ID NOW RAPID TESTING) 2021-07-03 05:58:00 Wong Santo [facility] LAB ONLY COVID INTERPRETATION 2021-07-03 05:58:00 Wong Santo [facility] BLOOD CULTURE SCREEN 2021-07-03 05:58:00 Wong Santo [facility] COVID-19 (ID NOW RAPID TESTING) 2021-07-03 05:58:00 Wong Santo [facility] LAB ONLY COVID INTERPRETATION 2021-07-03 05:58:00 Wong Santo [facility] EKG-12 LEAD 2021-07-03 05:40:45 Gm De Los Santos [facility] EKG-12 LEAD 2021-07-03 05:40:45 Gm De Los Santos [facility] EKG-12 LEAD 2021-07-03 05:40:45 Gm De Los Santos [facility] NOTICE OF PRIVACY PRACTICES 2021-07-03 05:30:04 Doctor Unassigned, [place] [facility] NOTICE OF PRIVACY PRACTICES 2021-07-03 05:30:04 Doctor Unassigned, [place] [facility] NOTICE OF PRIVACY PRACTICES 2021-07-03 05:30:04 Doctor Unassigned, [place] [facility] CONSENT/REFUSAL FOR DIAGNOSIS AND TREATMENT 2021-07-03 05:29:41 Doctor Unassigned, [place] [facility] CONSENT/REFUSAL FOR DIAGNOSIS AND TREATMENT 2021-07-03 05:29:41 Doctor Unassigned, [place] [facility] CONSENT/REFUSAL FOR DIAGNOSIS AND TREATMENT 2021-07-03 05:29:41 Doctor Unassigned, [place] [facility] [address] Ecg Routine Ecg W/least 12 Lds W/i r 2017-01-04 00:00:00 Plan of Care Planned Activity Planned Date Details Comments Source Goal Plan of Care Note [code = 02360-7] Goal Plan of Care Note [code = 49136-5] Goal Plan of Care Note [code = 21459-2] Goal Plan of Care Note [code = 02011-4] Goal Plan of Care Note [code = 43158-4] Goal Plan of Care Note [code = 00399-4] Goal Plan of Care Note [code = 41252-7] Goal Plan of Care Note [code = 08744-4] Goal Plan of Care Note [code = 54129-8] Goal Plan of Care Note [code = 02061-5] Goal Plan of Care Note [code = 19883-6] Goal Plan of Care Note [code = 23758-4] Goal Plan of Care Note [code = 03656-3] Goal Plan of Care Note [code = 61982-8] Goal Plan of Care Note [code = 75760-3] Goal Plan of Care Note [code = 09070-7] Goal Plan of Care Note [code = 62438-8] Goal Plan of Care Note [code = 56236-3] Goal Plan of Care Note [code = 36771-0] Goal Plan of Care Note [code = 00012-0] Goal Plan of Care Note [code = 24346-0] Goal Plan of Care Note [code = 92879-3] Goal Plan of Care Note [code = 85713-4] Goal Plan of Care Note [code = 60411-5] Goal Plan of Care Note [code = 85191-9] Goal Plan of Care Note [code = 55579-0] Goal Plan of Care Note [code = 55468-3] Goal Plan of Care Note [code = 64046-0] Goal Plan of Care Note [code = 75824-4] Goal Plan of Care Note [code = 49587-5] Goal Plan of Care Note [code = 20526-8] Goal Plan of Care Note [code = 18911-1] Goal Plan of Care Note [code = 66796-6] Goal Plan of Care Note [code = 91200-5] Encounters Start Date/Time End Date/Time Encounter Type Admission Type Attending [facility] Emergency Department Facility Care Department Encounter ID Source 2024-12-08 15:30:00 2024-12-08 15:30:00 Outpatient MARQUES THOMAS [id number] [facility] 2024-10-10 15:30:00 2024-10-10 15:30:00 Outpatient MARQUES THOMAS [id number] [facility] 2024-09-22 00:00:00 2024-09-22 00:00:00 Outpatient MARQUES THOMAS [id number] [facility] 2024-09-19 15:25:00 2024-09-19 15:25:00 Outpatient GUILLE ALCALA [id number] [facility] 2024-08-22 00:00:00 2024-08-22 00:00:00 Outpatient MARQUES THOMAS [id number] [facility] 2024-08-19 08:30:00 2024-08-19 08:30:00 Outpatient MARQUES THOMAS [id number] [facility] 2024-08-14 00:00:00 2024-08-14 00:00:00 Outpatient JENNIFER PRICE [id number] [facility] 2024-08-14 00:00:00 2024-08-14 00:00:00 Outpatient JENNIFER PRICE [id number] [facility] 2024-07-17 00:00:00 2024-07-17 00:00:00 Outpatient PREZASMARQUES SONIA [id number] [facility] 2024-07-02 00:00:00 2024-07-02 00:00:00 Outpatient PREZASMARQUES SONIA [id number] [facility] 2024-06-30 10:05:00 2024-06-30 10:05:00 Outpatient LAB90 SONIA SONIA [id number] [facility] 2024-06-10 00:00:00 2024-06-10 00:00:00 Outpatient PREZAS, MARQUES SONIA S[facility]IA [id number] [facility] 2024-06-06 00:00:00 2024-06-06 00:00:00 Outpatient JENNIFERMARYBETHJENNIFER Carrasco SONIA ALCALA [id number] [facility] 2024-06-05 00:00:00 2024-06-05 00:00:00 Outpatient PREZAS, MARQUES ALCALA SONIA [id number] [facility] 2024-06-05 00:00:00 2024-06-05 00:00:00 Outpatient PREZAS, MARQUES SONIA SONIA [id number] [facility] 2024-05-28 00:00:00 2024-05-28 00:00:00 Outpatient PREZAS, MARQUES SONIA ALCALA [id number] [facility] 2024-05-28 00:00:00 2024-05-28 00:00:00 Outpatient MALACHI MICHELLE [id number] [facility] 2024-05-20 00:00:00 2024-05-20 00:00:00 Outpatient PREZAS, MARQUES SONIA ALCALA [id number] [facility] 2024-05-19 14:30:00 2024-05-19 14:30:00 Outpatient LABRonald SONIA ALCALA [id number] [facility] 2024-05-19 13:45:00 2024-05-19 13:45:00 Outpatient MALACHI MICHELLE [id number] [facility] 2024-05-12 14:00:00 2024-05-12 14:00:00 Outpatient PREZAMARQUES Arthur SONIA ALCALA [id number] [facility] 2024-05-05 15:15:00 2024-05-05 15:15:00 Outpatient PREZAJerson, MARQUES SONIA ALCALA [id number] [facility] 2024-04-17 14:10:00 2024-04-17 14:10:00 Outpatient APRILBEATA Bill SONIA ALCALA [id number] [facility] 2024-03-20 15:15:00 2024-03-20 15:15:00 Outpatient PREZAS MARQUES SONIA ALCALA [id number] [facility] 2024-03-19 09:30:00 2024-03-19 09:30:00 Outpatient KENDALL CARRILLOHAN [facility] [id number] [facility] 2024-03-17 08:00:00 2024-03-17 08:00:00 Outpatient QUINN GAVIRIA [id number] [facility] 2024-03-17 00:00:00 2024-03-17 00:00:00 Outpatient JOAN STACY [id number] [facility] 2024-03-11 00:00:00 2024-03-11 00:00:00 Outpatient ESTHERJENNIFER Carrasco SONIA ALCALA [id number] [facility] 2024-03-10 14:25:00 2024-03-10 14:25:00 Outpatient APRILBEATA SONIA ALCALA [id number] [facility] 2024-02-28 07:30:00 2024-02-28 07:30:00 Outpatient SONIA ALCALA [id number] [facility] 2024-02-22 00:00:00 2024-02-22 00:00:00 Outpatient PREZAS, MARQUES ALCALA [id number] [facility] 2024-02-21 00:00:00 2024-02-21 00:00:00 Outpatient PREZAS, MARQUES ALCALA [id number] [facility] 2024-02-20 08:15:00 2024-02-20 08:15:00 Outpatient SONIA ALCALA [id number] [facility] 2024-02-18 08:00:00 2024-02-18 08:00:00 Outpatient LAB90 SONIA ALCALA [id number] [facility] 2024-02-15 08:25:00 2024-02-15 08:25:00 Outpatient LAB90 SONIA SONIA [id number] [facility] 2024-02-15 00:00:00 2024-02-15 00:00:00 Outpatient SONIA SONIA [id number] [facility] 2024-02-15 00:00:00 2024-02-15 00:00:00 Outpatient SONIA SONIA [id number] [facility] 2024-02-15 00:00:00 2024-02-15 00:00:00 Outpatient SONIA SONIA [id number] [facility] 2024-02-15 00:00:00 2024-02-15 00:00:00 Outpatient SONIA SONIA [id number] [facility] 2024-02-15 00:00:00 2024-02-15 00:00:00 Outpatient SONIA SONIA [id number] [facility] 2024-02-15 00:00:00 2024-02-15 00:00:00 Outpatient JENNIFER PRICE [id number] [facility] 2024-02-14 13:30:00 2024-02-14 13:30:00 Outpatient FELIPA CALHOUN [id number] [facility] 2024-02-14 13:30:00 2024-02-14 13:30:00 Outpatient 39, HOLTER SONIA ALCALA [id number] [facility] 2024-02-14 00:00:00 2024-02-14 00:00:00 Outpatient JENNIFER PRICE [id number] [facility] 2024-02-14 00:00:00 2024-02-14 00:00:00 Outpatient SONIA ALCALA [id number] [facility] 2024-02-05 16:00:00 2024-02-05 16:00:00 Outpatient SONIA S[facility]IA [id number] [facility] 2024-02-04 00:00:00 2024-02-04 00:00:00 Outpatient PREZAS, MARQUES ALCALA SONIA [id number] [facility] 2024-02-01 08:40:00 2024-02-01 08:40:00 Outpatient LAB90 SONIA SONIA [id number] [facility] 2024-01-31 10:40:00 2024-01-31 10:40:00 Outpatient 39, HOLTER SONIA SONIA [id number] [facility] 2024-01-31 10:15:00 2024-01-31 10:15:00 Outpatient MORAIMANEVAEHFELIPA SONIA SONIA [id number] [facility] 2024-01-30 11:30:00 2024-01-30 11:30:00 Outpatient PREZAS, MARQUES [facility]IA [facility] [id number] [facility] 2024-01-30 00:00:00 2024-01-30 00:00:00 Outpatient PREZAS, MARQUES ALCALA SONIA [id number] [facility] 2024-01-29 10:45:00 2024-01-29 10:45:00 Outpatient SONIA SONAI [id number] [facility] 2024-01-28 00:00:00 2024-01-28 00:00:00 Outpatient PREZAS, MARQUES SONIA ALCALA [id number] [facility] 2024-01-24 00:00:00 2024-01-24 00:00:00 Outpatient PREZAS, MARQUES SONIA S[facility]IA [id number] [facility] 2024-01-11 00:00:00 2024-01-11 00:00:00 Outpatient PREZAS, MARQUES SONIA ALCALA [id number] [facility] 2024-01-02 11:30:00 2024-01-02 11:30:00 Outpatient PREZAS, MARQUES SONIA ALCALA [id number] [facility] 2024-01-02 00:00:00 2024-01-02 00:00:00 Outpatient PREZAS, MARQUES ALCALA SONIA [id number] [facility] 2023-12-28 00:00:00 2023-12-28 00:00:00 Outpatient PREZAS, MARQUES ALCALA SONIA [id number] [facility] 2023-12-18 00:00:00 2023-12-18 00:00:00 Outpatient PREZAS, MARQUES ALCALA SONIA [id number] [facility] 2023-12-12 16:30:00 2023-12-12 16:30:00 Outpatient SONIA SONIA [id number] [facility] 2023-12-08 00:00:00 2023-12-08 00:00:00 Outpatient PREZAS, MARQUES SONIA SONIA [id number] [facility] 2023-11-30 11:45:00 2023-11-30 11:45:00 Outpatient PREZAS, MARQUES SONIA ALCALA [id number] [facility] 2023-11-19 00:00:00 2023-11-19 00:00:00 Outpatient PREZAS, MARQUES SONIA SONIA [id number] [facility] 2023-11-19 00:00:00 2023-11-19 00:00:00 Outpatient PREZAS, MARQUES SONIA ALCALA [id number] [facility] 2023-11-16 09:05:00 2023-11-16 09:05:00 Outpatient LAB SONIA ALCALA [id number] [facility] 2023-11-16 08:15:00 2023-11-16 08:15:00 Outpatient PREZAS, MARQUES SONIA SONIA [id number] [facility] 2023-10-24 14:15:00 2023-10-24 14:15:00 Outpatient PREZAS, MARQUES SONIA ALCALA [id number] [facility] 2023-09-17 00:00:00 2023-09-17 00:00:00 Outpatient PREZAS, MARQUESJENI ALCALA [id number] [facility] 2023-08-31 00:00:00 2023-08-31 00:00:00 Outpatient PREZAS, MARQUES SONIA ALCALA [id number] [facility] 2023-08-09 00:00:00 2023-08-09 00:00:00 Outpatient PREZAS, MARQUES ALCALA SONIA [id number] [facility] 2023-07-19 00:00:00 2023-07-19 00:00:00 Outpatient PREZAS, MARQUES ALCALA SONIA [id number] [facility] 2023-07-08 00:00:00 2023-07-08 00:00:00 Outpatient PREZAS, MARQUES ALCALA SONIA [id number] [facility] 2023-07-05 00:00:00 2023-07-05 00:00:00 Outpatient PREZAS, MARQUES ALCALA SONIA [id number] [facility] 2023-05-15 09:54:00 2023-05-15 09:54:00 Outpatient SFA SFA [id number] Francisco Foster 2023-05-08 14:38:20 2023-05-08 14:38:20 Outpatient SFA SFA [id number] Francisco Zamora Cristian 2023-04-13 00:00:00 2023-04-13 00:00:00 Outpatient PREZAS, MARQUES ALCALA [facility]IA [id number] [facility] 2023-04-10 00:00:00 2023-04-10 00:00:00 Outpatient PREZAS, MARQUES LOCKHARTTIFFANIE ALCALA [id number] [facility] 2023-04-02 00:00:00 2023-04-02 00:00:00 Outpatient PREZAS, MARQUES LOCKHARTTIFFANIE ALCALA [id number] [facility] 2023-03-26 16:45:00 2023-03-26 16:45:00 Outpatient PREZAS, MARQUES SONIA ALCALA [id number] [facility] 2023-03-26 00:00:00 2023-03-26 00:00:00 Outpatient PREZAS, MARQUES SONIA ALCALA [id number] [facility] 2023-03-22 00:00:00 2023-03-22 00:00:00 Outpatient PREZAS, MARQUES SONIA ALCALA [id number] [facility] 2023-03-22 00:00:00 2023-03-22 00:00:00 Outpatient GRIFFINKARLAMARQUES Arthur SONIA ALCALA [id number] [facility] 2023-03-20 08:05:00 2023-03-20 08:05:00 Outpatient LAB90 SONIA ALCALA [id number] [facility] 2023-03-19 09:00:00 2023-03-19 09:00:00 Outpatient LEOBARDOJersonROMMARQUES SONIA ALCALA [id number] [facility] 2023-02-12 00:00:00 2023-02-12 00:00:00 Transition of Care Rebecca Holloway 1.2.840.114 350.1.13.10 4.2.7.2.686 [id number] [facility] 2023-01-30 18:09:00 2023-02-09 15:20:00 Inpatient U JOAN FAGAN [facility] [id number] [facility] 2023-01-30 18:09:00 2023-02-09 15:20:00 Hospital Encounter Micah Novoa, [facility] 1.2.840.114 350.1.13.10 4.2.7.2.686 [id number] [facility] 2023-02-09 00:00:00 2023-02-09 00:00:00 Diego Neri [facility] 1.2.840.114 350.1.13.10 4.2.7.2.686 [id number] [facility] 2023-02-02 14:45:00 2023-02-02 14:45:00 Outpatient MARTHA MARQUES SONIA ALCALA [id number] [facility] 2023-01-29 00:00:00 2023-01-29 00:00:00 Outpatient MARQUES THOMAS [id number] [facility] 2023-01-08 14:45:00 2023-01-08 14:45:00 Outpatient PREZAS, MARQUES LOCKHARTSEY [id number] [facility] 2022-12-28 15:15:00 2022-12-28 15:15:00 Outpatient SONIA ALCALA [id number] [facility] 2022-12-21 15:15:00 2022-12-21 15:15:00 Outpatient SONIA ALCALA [id number] [facility] 2022-12-21 13:45:00 2022-12-21 13:45:00 Outpatient PREZAS, MARQUES ALCALA [id number] [facility] 2022-12-18 00:00:00 2022-12-18 00:00:00 Outpatient PREZAS, MARQUES ALCALA SONIA [id number] [facility] 2022-12-13 10:00:00 2022-12-13 10:00:00 Outpatient PREZAS, MARQUES ALCALA SONIA [id number] [facility] 2022-12-06 14:30:00 2022-12-06 14:30:00 Outpatient PREZAS, MARQUES ALCALA SONIA [id number] [facility] 2022-12-06 14:30:00 2022-12-06 14:30:00 Outpatient PREZAS, MARQUES ALCALA SONIA [id number] [facility] 2022-12-06 11:15:00 2022-12-06 11:15:00 Outpatient PREZAS, MARQUES ALCALA SONIA [id number] [facility] 2022-11-22 08:00:00 2022-11-22 08:00:00 Outpatient HUNDL, TRAVIS ALCALA SONIA [id number] [facility] 2022-09-25 17:44:22 2022-09-25 17:44:22 Outpatient SFA SFA [id number] Francisco Zamora Cristian 2022-09-14 09:47:26 2022-09-14 09:47:26 Outpatient SFA SFA [id number] Francisco Sera Cristian 2022-09-09 11:01:13 2022-09-09 11:01:13 Outpatient SFA [facility] [id number] Francisco Foster 2022-09-09 00:00:00 2022-09-09 00:00:00 Outpatient Visit [id number] 4828-09-06 00:00:00 2022-06-13 00:00:00 Outpatient Visit [id number] 2021-07-11 00:00:00 2021-07-11 00:00:00 Transition of Care Aurora Goins 1.2.840.114 350.1.13.10 4.2.7.2.686 [id number] [facility] 2021-07-03 00:38:00 2021-07-08 12:55:00 Hospital Encounter Wong Santo Adnan [place], [facility] 1.2.840.114 350.1.13.10 4.2.7.2.686 [id number] [facility] 2021-07-07 07:30:00 2021-07-07 09:15:00 Surgery Nomi Robles [facility] [place] 1.2.840.114 350.1.13.10 4.2.7.2.686 [id number] [facility] 2021-07-05 17:20:00 2021-07-05 18:24:00 Surgery Nomi Robles [facility] [place] 1.2.840.114 350.1.13.10 4.2.7.2.686 [id number] [facility] 2021-07-03 00:27:00 2021-07-03 00:27:00 Emergency X [facility] ERT [id number] [facility] Results Test Description Test Time Test Comments Results Result Co mments Source [facility] GLUCOSE (AUTOMATED)2023-02-09 12:43:00* Test Item Value Reference Range Interpretation Comme nts POCT GLU (test code = 6089565747) 120 mg/dL 70-110 H Lab Interpretation (test cod e = 50084-0) Abnormal [facility] GLUCOSE (AUTOMATED)2023-02-09 01:28:05* Test Item Value Reference Range Interpretation Comme nts POCT GLU (test code = 4725411500) 267 mg/dL 70-110 H Lab Interpretation (test cod e = 60175-3) Abnormal [facility] GLUCOSE (AUTOMATED)2023-02-08 22:01:26* Test Item Value Reference Range Interpretation Comme nts POCT GLU (test code = 2290997302) 217 mg/dL 70-110 H Lab Interpretation (test cod e = 78126-0) Abnormal [facility] GLUCOSE (AUTOMATED)2023-02-08 18:16:43* Test Item Value Reference Range Interpretation Comme nts POCT GLU (test code = 7027051681) 129 mg/dL 70-110 H Lab Interpretation (test cod e = 16780-7) Abnormal [facility] GLUCOSE (AUTOMATED)2023-02-08 13:23:22* Test Item Value Reference Range Interpretation Comme nts POCT GLU (test code = 1008690520) 125 mg/dL 70-110 H Lab Interpretation (test cod e = 58622-2) Abnormal [facility] GLUCOSE (AUTOMATED)2023-02-08 01:12:01* Test Item Value Reference Range Interpretation Comme nts POCT GLU (test code = 4120541099) 207 mg/dL 70-110 H Lab Interpretation (test cod e = 83367-0) Abnormal [facility] GLUCOSE (AUTOMATED)2023-02-07 23:02:17* Test Item Value Reference Range Interpretation Comme nts POCT GLU (test code = 2712842407) 212 mg/dL 70-110 H Lab Interpretation (test cod e = 24384-4) Abnormal [facility] GLUCOSE (AUTOMATED)2023-02-07 13:44:50* Test Item Value Reference Range Interpretation Comme nts POCT GLU (test code = 2251243178) 137 mg/dL 70-110 H Lab Interpretation (test cod e = 09261-7) Abnormal [facility] GLUCOSE (AUTOMATED)2023-02-07 01:34:23* Test Item Value Reference Range Interpretation Comme nts POCT GLU (test code = 7175574541) 182 mg/dL 70-110 H Lab Interpretation (test cod e = 54488-1) Abnormal [facility] GLUCOSE (AUTOMATED)2023-02-06 21:35:48* Test Item Value Reference Range Interpretation Comme nts POCT GLU (test code = 1583261136) 208 mg/dL 70-110 H Lab Interpretation (test cod e = 12134-1) Abnormal [facility] GLUCOSE (AUTOMATED)2023-02-06 16:49:01* Test Item Value Reference Range Interpretation Comme nts POCT GLU (test code = 3613749460) 149 mg/dL 70-110 H Lab Interpretation (test cod e = 61547-9) Abnormal [facility] GLUCOSE (AUTOMATED)2023-02-06 12:49:40* Test Item Value Reference Range Interpretation Comme nts POCT GLU (test code = 3381116690) 129 mg/dL 70-110 H Lab Interpretation (test cod e = 79185-5) Abnormal [facility] GLUCOSE (AUTOMATED)2023-02-06 01:32:23* Test Item Value Reference Range Interpretation Comme nts POCT GLU (test code = 4906219900) 218 mg/dL 70-110 H Lab Interpretation (test cod e = 05467-2) Abnormal [facility] GLUCOSE (AUTOMATED)2023-02-05 21:16:54* Test Item Value Reference Range Interpretation Comme nts POCT GLU (test code = 4999942297) 196 mg/dL 70-110 H Lab Interpretation (test cod e = 10730-6) Abnormal [facility] GLUCOSE (AUTOMATED)2023-02-05 16:28:07* Test Item Value Reference Range Interpretation Comme nts POCT GLU (test code = 3112837641) 141 mg/dL 70-110 H Lab Interpretation (test cod e = 40444-6) Abnormal [facility] GLUCOSE (AUTOMATED)2023-02-05 13:16:58* Test Item Value Reference Range Interpretation Comme nts POCT GLU (test code = 5496566615) 111 mg/dL 70-110 H Lab Interpretation (test cod e = 50732-5) Abnormal [facility] GLUCOSE (AUTOMATED)2023-02-05 02:08:45* Test Item Value Reference Range Interpretation Comme nts POCT GLU (test code = 7405948984) 186 mg/dL 70-110 H Lab Interpretation (test cod e = 57551-0) Abnormal [facility] GLUCOSE (AUTOMATED)2023-02-04 21:56:12* Test Item Value Reference Range Interpretation Comme nts POCT GLU (test code = 0236009469) 169 mg/dL 70-110 H Lab Interpretation (test cod e = 01627-6) Abnormal [facility] GLUCOSE (AUTOMATED)2023-02-04 17:09:55* Test Item Value Reference Range Interpretation Comme nts POCT GLU (test code = [id number]) 147 mg/dL 70-110 H Lab Interpretation (test cod e = 99607-5) Abnormal [facility] GLUCOSE (AUTOMATED)2023-02-04 12:44:04* Test Item Value Reference Range Interpretation Comme nts POCT GLU (test code = [id number]) 134 mg/dL 70-110 H Lab Interpretation (test cod e = 34415-1) Abnormal [facility] GLUCOSE (AUTOMATED)2023-02-04 01:35:35* Test Item Value Reference Range Interpretation Comme nts POCT GLU (test code = [id number]) 165 mg/dL 70-110 H Lab Interpretation (test cod e = 78486-2) [facility] 22:24:21* Test Item Value Reference Range Interpretation Comme nts POCT GLU (test code = [id number]) 119 mg/dL 70-110 H Lab Interpretation (test cod e = 99570-7) Abnormal [facility] GLUCOSE (AUTOMATED)2023-02-03 16:50:54* Test Item Value Reference Range Interpretation Comme nts POCT GLU (test code = [id number]) 225 mg/dL 70-110 H Lab Interpretation (test cod e = 03012-4) [facility] 13:20:55* Test Item Value Reference Range Interpretation Comme nts POCT GLU (test code = [id number]) 124 mg/dL 70-110 H Lab Interpretation (test cod e = 63309-7) [facility] 02:16:40* Test Item Value Reference Range Interpretation Comme nts POCT GLU (test code = [id number]) 150 mg/dL 70-110 H Lab Interpretation (test cod e = 87867-7) [facility]:16:00* Test Item Value Reference Range Interpretation Comme nts POCT GLU (test code = 7050873686) 225 mg/dL 70-110 H Lab Interpretation (test cod e = 19914-9) Abnormal [facility] GLUCOSE (AUTOMATED)2023-02-02 17:16:51* Test Item Value Reference Range Interpretation Comme nts POCT GLU (test code = 4352044003) 175 mg/dL 70-110 H Lab Interpretation (test cod e = 43104-6) Abnormal [facility] GLUCOSE (AUTOMATED)2023-02-02 12:37:49* Test Item Value Reference Range Interpretation Comme nts POCT GLU (test code = 4524985819) 130 mg/dL 70-110 H Lab Interpretation (test cod e = 64554-6) Abnormal [facility] GLUCOSE (AUTOMATED)2023-02-02 01:15:10* Test Item Value Reference Range Interpretation Comme nts POCT GLU (test code = 4662215264) 183 mg/dL 70-110 H Lab Interpretation (test cod e = 38540-6) Abnormal [facility] GLUCOSE (AUTOMATED)2023-02-01 21:59:52* Test Item Value Reference Range Interpretation Comme nts POCT GLU (test code = 6813816967) 118 mg/dL 70-110 H Lab Interpretation (test cod e = 72259-2) Abnormal [facility] GLUCOSE (AUTOMATED)2023-02-01 16:21:37* Test Item Value Reference Range Interpretation Comme nts POCT GLU (test code = 7157795880) 171 mg/dL 70-110 H Lab Interpretation (test cod e = 23999-6) Abnormal [facility] GLUCOSE (AUTOMATED)2023-02-01 12:51:51* Test Item Value Reference Range Interpretation Comme nts POCT GLU (test code = 1932570469) 111 mg/dL 70-110 H Lab Interpretation (test cod e = 51974-5) Abnormal [facility] GLUCOSE (AUTOMATED)2023-02-01 01:49:19* Test Item Value Reference Range Interpretation Comme nts POCT GLU (test code = 2683043942) 131 mg/dL 70-110 H Lab Interpretation (test cod e = 75774-8) [facility] [id number] 23:05:19* Test Item Value Reference Range Interpretation Comme nts FREE T4 (test code = 2650322170) 1.17 See_Comment [Automated [employer]] The system which generated this result transmitted reference range: 0.78 - 2.20 ng/dL:. The reference range was not used to interpret this result as normal/abnormal. Lab Interpretation (test code = 53460-0) Normal [facility] GLUCOSE (AUTOMATED)2023-01-31 21:16:44* Test Item Value Reference Range Interpretation Comme nts POCT GLU (test code = 3459149499) 139 mg/dL 70-110 H Lab Interpretation (test cod e = 89024-8) Abnormal [facility] GLUCOSE (AUTOMATED)2023-01-31 16:44:15* Test Item Value Reference Range Interpretation Comme nts POCT GLU (test code = 9109387376) 107 mg/dL 70-110 Lab Interpretation (test cod e = 97082-1) Normal [facility] GLUCOSE (AUTOMATED)2023-01-31 12:56:40* Test Item Value Reference Range Interpretation Comme nts POCT GLU (test code = 4993044095) 110 mg/dL 70-110 Lab Interpretation (test cod e = 03958-2) [facility]ERRITIN [id number] 06:15:48* Test Item Value Reference Range Interpretation Comme nts FERRITIN (test code = 7089569607) 82.1 ng/mL 18.0-464.0 BRYSON (test code = BRYSON) Biotin has been reported to cause a negative bias, interpret results relative to patient's use of biotin. Lab Interpretation (test code = 17305-6) [facility] RockIRON [id number] 05:47:28* Test Item Value Reference Range Interpretation Comme nts IRON (test code = 8402101188) 30 ug/dL 50-160 L TIBC (test code = 0296282007) 294 ug/dL 250-410 % FE SAT (test code = 2421747822) 10 % 20-50 L Lab Interpretation (test cod e = 04662-7) [facility]PHOSPHORUS2023-04-26 05:38:19* Test Item Value Reference Range Interpretation Comme nts PHOSPHORUS (test code = 5826730279) 5.1 mg/dL 2.5-5.0 H Lab Interpretation (test cod e = 99422-1) [facility]normal [facility] RockTROPONIN [id number] 00:26:23* Test Item Value Reference Range Interpretation Comme nts TROPONIN I (test code = 0139481786) 0.016 ng/mL <=0.034 BRYSON (test code = [...] of biotin. Lab Interpretation (test code = 50935-4) Normal [facility] RockN-TERMINAL [id number] 00:23:01* Test Item Value Reference Range Interpretation Comme nts NT-proBNP (test code = 2214063958) 2150 pg/mL <=125 H BRYSON (test code = BRYSON) Biotin has been reported to cause a negative bias, interpret results relative to patient's use of biotin. Lab Interpretation (test code = 87611-2) [facility]normal [facility] RockCOMP. METABOLIC PANEL (85435)2023-01-31 00:14:59* Test Item Value Reference Range Interpretation Comme nts NA (test code = 0619343237) 139 mmol/L 135-145 K (test code = 9581665139) 5.3 mmol/L 3.5-5.0 H CL (test code = 8534000282) 111 mmol/L 98-108 H CO2 TOTAL (test code = 7444586982) 23 mmol/L 23-31 AGAP (test code = 2685174211) 5 2-16 BUN (test code = 6581052565) 37 mg/dL 7-23 H GLUCOSE (test code = 9566107219) 100 mg/dL 70-110 CREATININE (test code = 0744028806) 1.98 mg/dL 0.60-1.25 H TOTAL BILI (test code = 2566839788) 0.4 mg/dL 0.1-1.1 CALCIUM (test code = 3460820835) 8.7 mg/dL 8.6-10.6 T PROTEIN (test code = 1083964002) 6.6 g/dL 6.3-8.2 ALBUMIN (test code = 3112920439) 3.4 g/dL 3.5-5.0 L ALK PHOS (test code = 7728486517) 127 U/L 34-122 H ALTv (test code = 1742-6) 28 U/L 5-50 AST(SGOT) (test code = 8866635708) 34 U/L 13-40 eGFR (test code = 7799444678) 35.0 mL/min/1.73m2 BRYSON (test code = BRYSON) [...] imaging tests). Lab Interpretation (test code = 07546-4) Abnormal [facility] WITH [id number] 00:04:02* Test Item Value Reference Range Interpretation Comme nts WBC (test code = 6690-2) 9.27 See_Comment [Automated [employer]] The system which generated this result transmitted reference range: 4.20 - 10.70 10*3/?L. The reference range was not used to interpret this result as normal/abnormal. RBC (test code = 789-8) 3.15 See_Comment L [Automated [employer]] The system which generated this result transmitted [...] 31.3 g/dL 31.2-35.0 RDW-SD (test code = 54131-9) 49.5 fL 38.5-51.6 RDW-CV (test code = 788-0) 14.4 % 12.1-15.4 PLT (test code = 777-3) 248 See_Comment [Automated messa ge] The system which generated this result transmitted reference range: 150 - 328 10*3/?L. The reference range was not used to interpret this result as normal/abnormal. MPV (test code = 79703-0) 11.9 fL 9.8-13.0 NRBC/100 WBC (test code = 2821565453) 0.0 See_Comment [Automated me ssage] The system which generated this result transmitted reference range: 0.0 - 10.0 /100 WBCs. The reference range was not used to interpret this result as normal/abnormal. NRBC x10^3 (test code = 3936977427) See_Comment [Automated messa ge] The system which generated this result transmitted reference range: 10*3/?L. The reference range was not used to interpret this result as normal/abnormal. GRAN MAT (NEUT) % (test code = 770-8) 68.5 % IMM GRAN % (test code = 8631619224) 0.40 % LYMPH % (test code = 736-9) 17.8 % MONO % (test code = 5905-5) 10.4 % EOS % (test code = 713-8) 2.4 % BASO % (test code = 706-2) 0.5 % GRAN MAT x10^3(ANC) (test code = 3209785914) 6.35 10*3/uL 1.99-6.95 IMM GRAN x10^3 (test code = 5030940852) 0.04 10*3/uL 0.00-0.06 LYMPH x10^3 (test code = 731-0) 1.65 10*3/uL 1.09-3.23 MONO x10^3 (test code = 742-7) 0.96 10*3/uL 0.36-1.02 EOS x10^3 (test code = 711-2) 0.22 10*3/uL 0.06-0.53 BASO x10^3 (test code = 704-7) 0.05 10*3/uL 0.01-0.09 Lab Interpretation (test code = 32727-4) Abnormal [facility] RockHEMOGLOBIN [id number] 04:29:13* Test Item Value Reference Range Interpretation Comme nts HEMOGLOBIN A1c (test code = 21557) 9.6 % 4.2-5.6 H [employer] GUIDELINES FOR HGB A1C: [...] CONSIDER ALTERNATE TESTING OR LABORATORY CONSULTATION. LIPID [id number] 02:58:52* Test Item Value Reference Range Interpretation [...] SPECIMENS. FOR MOREINFORMATION, SEE CLIENT ANNOUNCEMENT AT [email or web address] /[email or web address]-[email or web address] RISK RATIO LDL/HDL (test code = 2238) 3.29 RATIO <3.55 UNLESS OTHERW ISE INDICATED, ALL TESTING PERFORMED [facility] [address] [place] [address] ACCIDENT REPORT CLERK: NIKKIE CRANDALL M.D. [place] NUMBER [id number] [facility] [place] [place]. [id number] HEMOGLOBIN [id number] 00:00:00* Test Item Value Reference Range Interpretation Comme nts HEMOGLOBIN A1c (test code = 36560) 9.6 % LIPID [id number] 00:00:00* Test Item Value Reference Range Interpretation Comme nts CHOLESTEROL (test code = 2210) 224 MG/DL TRIGLYCERIDES (test code = 2232) 174 MG/DL HDL CHOLESTEROL (test code = 2220) 45 MG/DL CALC LDL CHOL (test code = 2237) 148 MG/DL RISK RATIO LDL/HDL (test cod e = 2238) 3.29 RATIO LIPID [id number] 23:49:07* Test Item Value Reference Range Interpretation [...] SPECIMENS. FOR MOREINFORMATION, SEE CLIENT ANNOUNCEMENT AT [email or web address] /CalcLDL-C RISK RATIO LDL/HDL (test code = 2238) 2.71 RATIO <3.55 COMPREHENSIVE METABOLIC [id number] 23:49:07* Test Item Value Reference Range Interpretation Comme nts GLUCOSE (test code = 2217) 259 MG/DL 70-99 H BUN (test code = 2208) 19 MG/DL 6-20 CREATININE (test code = 2214) 1.06 MG/DL 0.80-1.40 eGFR (2020 CKD-EPI) (test code = 39493) 82 ML/MIN/1.73 >60 CALC BUN/CREAT (test code [...] 5-50 UNLESS OTHERWISE INDICATED, ALL TESTING PERFORMED [facility] [address] [place] [address] ACCIDENT REPORT CLERK: NIKKIE CRANDALL M.D. [place] NUMBER [id number] [facility] [place] [place]. [id number] HEMOGLOBIN [id number] 05:27:41* Test Item Value Reference Range Interpretation Comme nts HEMOGLOBIN A1c (test code = 88790) 9.9 % 4.2-5.6 H [employer] GUIDELINES FOR HGB A1C: [...] OR LABORATORY CONSULTATION. CBC W/AUTO DIFF WITH [id number] 04:31:59* Test Item Value Reference Range Interpretation [...] 0.00-0.10 ABS NUCLEATED RBCS (test code = 81503) 0.00 K/UL 0.00-0.11 HEMOGLOBIN [id number] 00:00:00* Test Item Value Reference Range Interpretation Comme nts HEMOGLOBIN A1c (test code = 14132) 9.9 % COMPREHENSIVE METABOLIC [id number] 00:00:00* Test Item Value Reference Range Interpretation Comme nts GLUCOSE (test code = 2217) 259 MG/DL BUN (test code = 2208) 19 MG/DL CREATININE (test code = 2214) 1.06 MG/DL eGFR (2020 CKD-EPI) (test co de = 73803) 82 ML/MIN/1.73 CALC BUN/CREAT (test code = [...] code = 2219) 21 U/L CBC W/AUTO [id number] 00:00:00* Test Item Value Reference Range Interpretation [...] ABS NUCLEATED RBCS (test cod e = 02192) 0.00 K/UL LIPID [id number] 00:00:00* Test Item Value Reference Range Interpretation Comme nts CHOLESTEROL (test code = 2210) 213 MG/DL TRIGLYCERIDES (test code = 2232) 169 MG/DL HDL CHOLESTEROL (test code = 2220) 49 MG/DL CALC LDL CHOL (test code = 2237) 133 MG/DL RISK RATIO LDL/HDL (test cod e = 2238) 2.71 RATIO HEMOGLOBIN [id number] 00:00:00* Test Item Value Reference Range Interpretation Comme nts HEMOGLOBIN A1c (test code = 43663) 9.9 % COMPREHENSIVE METABOLIC [id number] 00:00:00* Test Item Value Reference Range Interpretation Comme nts GLUCOSE (test code = 2217) 259 MG/DL BUN (test code = 2208) 19 MG/DL CREATININE (test code = 2214) 1.06 MG/DL eGFR (2020 CKD-EPI) (test co de = 05990) 82 ML/MIN/1.73 CALC BUN/CREAT (test code = [...] code = 2219) 21 U/L CBC W/AUTO [id number] 00:00:00* Test Item Value Reference Range Interpretation [...] ABS NUCLEATED RBCS (test cod e = 30651) 0.00 K/UL LIPID [id number] 00:00:00* Test Item Value Reference Range Interpretation Comme nts CHOLESTEROL (test code = 2210) 213 MG/DL TRIGLYCERIDES (test code = 2232) 169 MG/DL HDL CHOLESTEROL (test code = 2220) 49 MG/DL CALC LDL CHOL (test code = 2237) 133 MG/DL RISK RATIO LDL/HDL (test cod e = 2238) 2.71 RATIO HEMOGLOBIN [id number] 07:51:54* Test Item Value Reference Range Interpretation Comme nts HEMOGLOBIN A1c (test code = 51332) 10.1 % 4.2-5.6 H [employer] GUIDELINES FOR HGB A1C: [...] ALTERNATE TESTING OR LABORATORY CONSULTATION. COMPREHENSIVE METABOLIC [id number] 06:38:05* Test Item Value Reference Range Interpretation Comme nts GLUCOSE (test code = 2217) 164 MG/DL 70-99 H BUN (test code = 2208) 27 MG/DL 6-20 H CREATININE (test code [...] G/DL 3.5-5.2 CALC GLOBULIN (test code = 2239) 2.9 G/DL 1.9-3.7 CALC A/G RATIO (test code = 2233) 1.4 RATIO 1.0-2.6 BILIRUBIN, TOTAL (test code = 2206) 0.4 MG/DL See_Comment [Automated me ssage] The system which generated this result transmitted reference range: <=1.2. The reference range was not used to interpret this result as normal/abnormal. ALKALINE PHOSPHATASE (test code = 2203) 97 U/L 40-123 AST (test code = 2217) 22 U/L 9-50 ALT (test code = 2218) 22 U/L 5-50 LIPID [id number] 06:38:05* Test Item Value Reference Range Interpretation Comme nts CHOLESTEROL (test code = 2209) 229 MG/DL <200 H TRIGLYCERIDES (test code = 2231) 122 MG/DL <150 HDL CHOLESTEROL (test code = 2219) 68 MG/DL >39 CALC LDL CHOL (test code = 2236) 137 MG/DL <100 H NOTE: CALCULATED LDL IS BASED ON ANA-BURGESS METHOD WHICHINCLUDES ADJUSTABLE TRIGLYCERIDE:VLDL CHOLESTEROL RATIO.THIS FACTOR VARIES BY MEASURED TRIGLYCERIDE AND NON-HDLCHOLESTEROL CONCENTRATIONS WITH INCREASED CALCULATED LDL SEENIN HIGHER TRIGLYCERIDE OR LOWER NON-HDL SPECIMENS. FOR MOREINFORMATION, SEE CLIENT ANNOUNCEMENT AT [email or web address] /[email or web address] RISK RATIO LDL/HDL (test code = 2237) 2.01 RATIO <3.55 UNLESS OTHERW ISE INDICATED, ALL TESTING PERFORMED [facility] [address] [place] [address] ACCIDENT REPORT CLERK: NIKKIE CRANDALL M.D. CLIA NUMBER [id number] [facility] [place] [place]. [id number] CBC W/AUTO DIFF WITH [id number] 04:34:50* Test Item Value Reference Range Interpretation [...] = 1065) 0.0 /100 WBC'S See_Comment [Automated [employer]] The system which generated this result [...] 0.00-0.10 ABS NUCLEATED RBCS (test code = 61453) 0.00 K/UL 0.00-0.11 COMPREHENSIVE METABOLIC [id number] 00:00:00* Test Item Value Reference Range Interpretation Comme nts GLUCOSE (test code = 2217) 164 MG/DL BUN (test code = 2208) 27 MG/DL CREATININE (test code = 2214) 1.06 MG/DL eGFR (2020 CKD-EPI) (test co de = 33950) 82 ML/MIN/1.73 CALC BUN/CREAT (test code = [...] (test code = 2219) 22 U/L LIPID [id number] 00:00:00* Test Item Value Reference Range Interpretation Comme nts CHOLESTEROL (test code = 2210) 229 MG/DL TRIGLYCERIDES (test code = 2232) 122 MG/DL HDL CHOLESTEROL (test code = 2220) 68 MG/DL CALC LDL CHOL (test code = 2237) 137 MG/DL RISK RATIO LDL/HDL (test cod e = 2238) 2.01 RATIO CBC W/AUTO [id number] 00:00:00* Test Item Value Reference Range Interpretation [...] ABS NUCLEATED RBCS (test cod e = 69088) 0.00 K/UL HEMOGLOBIN [id number] 00:00:00* Test Item Value Reference Range Interpretation Comme nts HEMOGLOBIN A1c (test code = 66510) 10.1 % COMPREHENSIVE METABOLIC [id number] 00:00:00* Test Item Value Reference Range Interpretation Comme nts GLUCOSE (test code = 2217) 164 MG/DL BUN (test code = 2208) 27 MG/DL CREATININE (test code = 2214) 1.06 MG/DL eGFR (2020 CKD-EPI) (test co de = 13552) 82 ML/MIN/1.73 CALC BUN/CREAT (test code = [...] (test code = 2219) 22 U/L LIPID [id number] 00:00:00* Test Item Value Reference Range Interpretation Comme nts CHOLESTEROL (test code = 2210) 229 MG/DL TRIGLYCERIDES (test code = 2232) 122 MG/DL HDL CHOLESTEROL (test code = 2220) 68 MG/DL CALC LDL CHOL (test code = 2237) 137 MG/DL RISK RATIO LDL/HDL (test cod e = 2238) 2.01 RATIO CBC W/AUTO [id number] 00:00:00* Test Item Value Reference Range Interpretation [...] ABS NUCLEATED RBCS (test cod e = 85085) 0.00 K/UL HEMOGLOBIN [id number] 00:00:00* Test Item Value Reference Range Interpretation Comme nts HEMOGLOBIN A1c (test code = 92963) 10.1 % POCT GLUCOSE (AUTOMATED)2021-07-08 17:00:05* Test Item Value Reference Range Interpretation Comme nts POCT GLU (test code = 7718841236) 174 mg/dL 70-110 H Lab Interpretation (test cod e = 61118-2) Abnormal [facility] GLUCOSE (AUTOMATED)2021-07-08 17:00:05* Test Item Value Reference Range Interpretation Comme nts POCT GLU (test code = 2207109039) 174 mg/dL 70-110 H Lab Interpretation (test cod e = 22915-2) Abnormal [facility] GLUCOSE (AUTOMATED)2021-07-08 13:07:13* Test Item Value Reference Range Interpretation Comme nts POCT GLU (test code = 9637888906) 230 mg/dL 70-110 H Lab Interpretation (test cod e = 39926-0) Abnormal [facility] GLUCOSE (AUTOMATED)2021-07-08 13:07:13* Test Item Value Reference Range Interpretation Comme nts POCT GLU (test code = 8928633924) 230 mg/dL 70-110 H Lab Interpretation (test cod e = 57874-6) Abnormal [facility] Culture - Peripheral # [id number] 07:01:05* Test Item Value Reference Range Interpretation Comme nts Blood Culture-Aerobic (test code = 01476-2) No organisms isolated No growth Previous preliminary [...] 0201 CDT Blood Culture-Anaerobic (test code = 32913-0) No organisms isolated No growth Previous preliminary [...] 0201 CDT Lab Interpretation (test code = 38891-6) [facility] Culture - Peripheral # [id number] 07:01:05* Test Item Value Reference Range Interpretation Comme nts Blood Culture-Aerobic (test code = 54166-7) No organisms isolated No growth Previous preliminary [...] 0201 CDT Blood Culture-Anaerobic (test code = 16786-0) No organisms isolated No growth Previous preliminary [...] 0201 CDT Lab Interpretation (test code = 88324-5) [facility] Culture - Peripheral # [id number] 07:01:05* Test Item Value Reference Range Interpretation Comme nts Blood Culture-Aerobic (test code = 26844-9) No organisms isolated No growth Previous preliminary [...] 0201 CDT Blood Culture-Anaerobic (test code = 43244-7) No organisms isolated No growth Previous preliminary [...] 0201 CDT Lab Interpretation (test code = 70966-0) Normal [facility] Culture - Peripheral # [id number] 07:01:05* Test Item Value Reference Range Interpretation Comme nts Blood Culture-Aerobic (test code = 18315-5) No organisms isolated No growth Previous preliminary [...] 0201 CDT Blood Culture-Anaerobic (test code = 28794-6) No organisms isolated No growth Previous preliminary [...] 0201 CDT Lab Interpretation (test code = 64471-2) Normal [facility] GLUCOSE (AUTOMATED)2021-07-07 22:16:33* Test Item Value Reference Range Interpretation Comme nts POCT GLU (test code = 2209406300) 293 mg/dL 70-110 H Lab Interpretation (test cod e = 14688-4) Abnormal [facility] GLUCOSE (AUTOMATED)2021-07-07 22:16:33* Test Item Value Reference Range Interpretation Comme nts POCT GLU (test code = 3101673642) 293 mg/dL 70-110 H Lab Interpretation (test cod e = 47744-4) [facility] [id number] 20:37:10* Test Item Value Reference Range Interpretation Comme [facility] Case Report (test code = 8087205598) Surgical Pathology ?Case: [id number] ? Authorizing Provider: ?Nomi Robles Jr., JANAY ? Collected: ? 07/05/2021 1842 ?Ordering Location: ? ? [facility] ? ? ?Received: ?07/05/2021 1948 ? [facility] ?Pathologist: ? Eduardo Ordaz MD PHD ?Specimen: ? ?TOE, RIGHT FOURTH TOE ? Final Diagnosis (test code = 6870927772) [id number] FuZzEwMzNcZnRuYmpcdWMx IHtccnRmMVxlcGljOTYwMV ryicEgJIRpkDAsE1Nrnhwx DNoeEF3yQV7abFplvFFsaY OiUQIcBkFrt9jpn436iHAj a3hhPDWOlgphjQg7aZmqL4 4zx2R3SmuaT79viYXxIVT0 XXAyOYRvsGJfVSQaJQA3JH DthDMiW8xyTXXfQZ4ebdbv JRdpNQcjFJPwrNO6FBSvqH MeG7JoUMYbLOuwTFXtrid3 CtNkPj0zbIRnnBjyPUdhOX JkXHBsYWluXGZzMjBccGFy OXGjEKCDW7bDRIMIOFEPPR YFP4YhTFJCALPYHRAHW590 YENxnhJoJVHgKYUUN1YNMI 2VTbMHVO1CNfWHMHRNTQWZ ROXKWJJMTT8DGQGZKQkIFV lUSVNccGFyICAgICAtIFBS W7vJNRLHVNOIUTiOOMzJEr GPVSTTYZRHGMBHEJKqN1Vo Y5LTXL5SPGUYRXZWM1usTE WmRXQyYJ8hG2qFHyOBUtDw U07EQYFOFRWFGLHzXpNCPP BRBX1OOW8YEohZHzCcZFVX IFZJQUJMRSAgXHBhclxwYX MaRqOuTiCDcEKcBAQgWZ6t EG6BKjDaQDbtAvEwFjUeUL AgMToyMyBQTVxwYXJcZnMy FKnmRLA3s3sxnRQoVKYecT IgKpTgVDOhGEKyq5moGIHb bGFuZzEwMzNcZnRuYmpcdW SxYVTzNhPqz2awu359mJKa e1plZQOeQkB3wWXsRMHqqG mduja7tDwuInEzPILis9de cyBcZmNoYXJzZXQwIEFyaW PaX158TUKkAMdpf5hur2Ty UHFqdWGsb9N7DOXMJStfBq CsB198s8dtw4bsanZpqJA7 CDXtKCG8VBaizhQahtU2JA dohXSdUjY9YNidagGoSLyb lwUedaStHyh7JXDwS720AT X3wUznw5ntAXO6LPKaLTQi LygqZm8raKYvN252PKUiYS XIPINieJt9RCYbzwJjilCf pDWHn495W539h4yxCHZvys PkwJiQyudpv5qrE818POOo cGVydzEyMjQwXHBhcGVyaD T6HIRfER5zyhauYQpzIYtv IGJotvH5NAJorFUwX9SgNM BlJO5wfejzVEC7EZomZHPr ICX6YqMsTEYuu3Yzomw2Fb Ylsi5ntl98GYF4s2QltCqc LOT3ICN1ZbGuUi7lgDCdBA RyBT5cNsUusOOvNIBtbj76 hTdjGWkxcfZzjJ8jGuRqLQ FkjIGuMUGpDG0tmSHmZAKx jG7hcitvCGEdCxQmmwruEI BvdDoxjiFrJk0ilXhuAKS0 ADssP1jijL4fEuM4XMabN2 xbuM0kRQt4SAebgUL8IVXk uP2cGB1mpodsc9skLXdeVO yaJTCxehW6hvC4FHHvzONn J0EhzU5oLTRdUU4yikjzr9 eiCUF4QPfwZHIuYOF5RmQs ZPRez3Ugcsb3KoHqz4GgcI JsWDevE23gq527IPBjbmOz K0uyyBVxbopjfZZnyvybQD tmehK7VLZhRUJlPKscHFRq XGZzMjBcbGFuZzEwMzNcaG ljaFxmMVxkYmNoXGYxXGxv I8osWmVyG3OnKZSzYeYhfX MuKPjnbLT7RXWxHODqe69r dWl7PXEopavdq0TjXCXggZ SrvJEoaU7zctNsv6eaOZOv AUMwCUMeM2LaTBX7cOLcKH VatQUlsDR4XS3tahMrJX3l ZGUgYnkgcmVzaWRlbnRzLC AqOImqv7rcGK9rLWNieDjg oL3ulUY0KMAmu0zetGEmxM Ziu1lzp2TngdSjQMkzEFDj VIrmWVAeXRQkLG4mSBMklJ WunfCvt3O0RrqsdCEmfenf ZiqrakY1JJjvvtfjDELxBD uvF5pwXgZkGYAsjJtjThst f1UqKPSrBZFlTfsitRQkeM 0= Clinical Information (test code = [id number]) OSTEOMYELITIS/GANGRENE OF RIGHT FOURTH TOE Gross Description (test code = [id number]) u1lugTKgHKDhuXUWTKVnKx ovrnAsRJPobDOtB6Ixjbjm NJkmWG7gYE3nwDrxaXApoI DfVH9XJGXcGyRpXHXlxXFt gkLxReGmLUHlmZGkhPV2GV IvMH2yuuuvPQafFMotZVPy nkI7GLAsoAIcT3WrMALcLY 0rizigQDQ5NZyfsE8pooWQ RxfnMw1okPSzgDbtIwJqAd NoYXJzZXQwXGZuaWwgQXJp AOi3nI7VItprGEX5FIIKOl zwTRXuEF7Rh4ucCYKacWXl RYS9WFljfYVsUOLzDEOiUS h7HCWsDIdtyNQhQE8auEce XclfmRgjy1LlrYOuJCcdXI SgBIRmEJbyQDVxXV1YUrTz YMuBWuKgWwX4HkI7OPc6CW ZARoHbNeEfHRT2SIzrBNht WBt7SYt1VToJMnVoNqG3Lx V4LBloPIH5QWR2MWuhbIKp IFxcZiBBcmlhbCBcXGZzID TdTVekRzzaTEjrQ11vkBjm kZ2cIfDtYLEGMwFWS8YfBQ BhciANClxwbGFpblxlcGlj TmVzdERvYzEgDQpcbHRycG FyXGxpbjBccmluMCANClxs dHJjaFxmczIyIFNwZWNpbW BsPMAfuJRonlLzXMc5AHSg pT4yMg2zrUOloH8tpIIlQU xfDVJ5kVJoZUPpQNJyDCOo AS93I4LvzrYgAIctELyioo AvSlItCNXohovjuEOdIl84 cnRoIHRvZSIsIGFuZCBjb2 8ysOE9dxQuWqKbFKBwmc7u iK6wZPDaOPEbBE52XVziOe 6fEAmeNu6aXEFmQDO0oAdr nAKkiwHhfNHkiqUgB6BsVR WaKQMyzXM9sESkyER5RNKo ioNyrJnmvVXvO6EzzVDnj4 jrmS7dVAWiOMVka52uZGSc m5DrjUhruOikdPMbMUA2cz BaJ0UnDUy2ND4rjyJuFyPm Z04ruSGmuKasDTvkqM6scB lhRSYtaV6xYB6zVOHuOiQm bTnli3KcHWWfh4XvlGcxkk ZcRUHilK7gPNJMaWDbeA6l JFltXU9wtObdZhFaismoAc R6oFXsZOVmlZGmPHpxwFkw dtYnyAdigHVpxKP4pZlps3 HiUIOrhM8jteMtwR2wIOFr ZXJlIGlzIGEgdGFuLXllbG ouhvV4nnD4NA0yqQFqqMzy BOOnJ4ZvYJKaRFYqZYPwt1 4gKGFwcHJveGltYXRlbHkg Yw65JPmlNk51GQScMVCws3 GtoMMkRU3zAGJvWPHjl6De ABhic2JvXmJdKWKcIhA9sB AefC3oXEM1mVDfBWptZyL5 ifQ8tULhhDEbpQXaBBXdSI BsYXRlcmFsIHNpZGVzIHdo mPWsVWndtr6dzyNvIOSlKT Xky8ggPPPgODYqy9B0XKMt s8T7YRQuNDChS3Lpx77ogT OsX7ehETWcSOHrETSuyZQj nnHxKyVqO05qXaTtkCQ6wZ PkIu5jXBNdtIPihsFkQ3Nq YXRlZCBzdXJmYWNlLiAgVG hlIHJlbWFpbmRlciBvZiB0 fSPcg9xneqHjlfOzqZvrjX PhfEXotop9yJRwNXObkXBc w4r1oDIfx1xfNLVja5YdlL vfKr0cNLLwHTKnb59oBPfk ULCiM0Nzg15dTEM7wrHkSG ZlYWwgdGFuLXllbGxvdyB0 ggB1YA1ldzCxCXAzxWgjwI b6FBPadl64ivNyrSTiv8Mu ZmFjZXMuICBSZXByZXNlbn PsnTm6DHQrZDV4xH1ppjIj xiYqc8UdiQl9lHVrWQslCG LkLLIoRNKpz9psc4nhtyzr VAItPOhzlTIbS5Y6pE0nAG 4xDOCrPUBfUGVZHv7peIQe WV7JWGZvkxJBKvOdO6Hvm1 4tK51mDWocjIKvKK0OMZV5 WRCrdH5fc52feZQ9jTNdsU FrvgSaLHB9bL0xHI9pejtb vgwuXC1sEdMcTLqeBD08kJ VcyNygsUOzUY9DKLT4EWKj zhFhTZamBJU3sBO1vZH7SB Tfa9UeHbAtJNlmrZUouWTn RLvmoTpqoqc9ZBTaI9Net3 4bAYeuYA72tGDinWpkVOAw xIfjh9obXrMpQBWtpDNhIw mcHSSgg23rvTIfEQ0NMHR8 IEEib7UgQLTtU5Kez93rKB ZkiXRcr9DqyBZ0zYYzYPQt f3ktu8sygkuvWVFsJTuydE KhT3R2nP1mRCVensMKWkah TLKgPWoSVDB0EEPkvmBhuA mqZLUNOV1YQITmALiwUMZt iKKCBWF8PA3wAZxfcFFkej iaNHPmJ1UoQ9GbhyEluDYr DUNfzgLeu8waOOF6HDBbgE WptORvUsRmTefjBOY8TOij t9miFVD4QOOmkIXkuZFvJO uaJrUeFuipLJDsU3EnR3Yr ttE3ISq3 Disclaimer (test code = [id number]) d7cbgRQhWTEpz4nzLBHdlU FuZzEwMzNcZnRuYmpcdWMx JBsxaqNhQRdna1RxO8TiMn AwMFxhbnNpXGRlZmxhbmcx YKKyHEP8ooBiXUVrWLeeLA UoUPwmDr4yxAUprRlcXxQn DHYcs0uiboRAZRtvFfZrJ6 66MDQkVIpts3cvz3NpMOQn vVHeo6K8XPOPuslgkDf9iY wqK17ds7R3RspiW8qyNFAu PJFqC4FyJA8nIDBcPdq1CY H1SEM6HGXpNVJpO4FqFX6u IAJbnCVtJEk3l9pglEdbST WbCYK4c8mlLKmrkjBbKN1j nj8tcXz4i0mqpbEmPGJpTY GkaSMVVOIyK5XiwCvhAw0l bFl8cCpsKlmhANU2Wxy0SY 2ppc82ybc1tNbhKPHjaard BbP4OOgwEGBtavnoITb8GM znJMCzfZL9QSLppZVnT5Ka EIQsDZ0wjzy0JUX7DEsvXS InPiH3RKVmrPEoZOBkhGnx MHhvs659ZGK7EpXnWK3hZ8 Hdv0S0hN5omKRaZRXuwDBn CoRfFEWfuz5xcEPfIKkhc7 OcSRI9tnD7gVSokLZbAGMq QD91Navce7PeXupas9PiY7 3jsLK7FMbpr9wtMX7kUkL6 edWpUAfii0hbwR3oAxU3PQ wxVV2tMP7mKSWklH7koevk XHBnYnJkcmhlYWRccGdicm EgKw8oyNroPJI5DVfzP5jn fL0uFtK5RLssR2rrfL6nFI w2QToeyPP4ZFHquO6aYU7l nyqpd0kdLNsqWAywFXOdrd P4dcX6MBElzOJuP9OxnD5l EZXjMC8kspjkr0nfEMA9WV ddXOEyRNW3IrGrSJNpv2Kd rfq7SiDim8RptTYnPCllQ5 9vb663NPLawmFkH2qqoMPw rbrncQZrpgjlFQrdtwD8AK LvzcKbc2ZqYYHxGUV5CQnj TLzqwJPlKSEzqXnbx9puP8 RscGFyXHBsYWluXGYxXGZz MjBcbGFuZzEwMzNcaGljaF hwUZilGqMtKXArUWeeR6lt OdJyH7KjBBZpIqWzlLNmI2 ggVGhpcyByZXBvcnQgbWF5 YJmyG4b0WLIkcbAykKt6gm TyTfCmGTAiTIW9IOyihUIx FHJdl2JyvdtqkACaHe2beY DjEYJohO7uBJHuRKMcZCms TQ0frLb6CALLpZNipSAgXw JSWBAuXQ10kkLaHPAAcrbk b4W3QMwsJNUho4JmzGBeC4 mte8LiGRInp78dUK9bd8F8 l8evGPU2GG1ia9WhJSWhoV XonAOqFTFxc1Pzjiqoq1Bc IJMiaaTwp7HdNPXeviBcbZ RwZOEdcqGgfa2hrkRdXQLy AMKmF3HxkpgonOraqaZvJR Vsnw5cpkFvTTR3GBIHGQVi RRWnr3FfmL0csTBINHO9vK Ylpp1cugYSoALrHHIpnv51 TEHeIM9eY9ihIULhSROpsd DwnBYpt5BmYGNkgBU2bLXr NX3KLeFVr14bCTAtJZMTij IeKKQuiWwhcLM8rfD1uF2r IChGREEpLlx+IFRoZSBGRE EjDP8srtUtr4AbycLggKka SFQobAZqw4EctEBnt4PfdF hqi4RvcEFdeIBrTQ3lJNIw clxwYXIgVVRNQiBMYWJvcm I9q0QwEHLxPDYmDYS1uUjc mtl7BBPueF4lLXFpN5pzhn emYKymDSJiz2BosR1ljDHL pDUlp9GkbAKeyVYFkOCsZZ 6vxaMdFLaNGEbGQDS1ziZz TSFaw1NwUSajQ3zcU88ssB dnbRs9sBA9WZD4fL1cVip+ IFxwYXJccGFyIEFwcHJvcH ChOWLfrPzsqvLfS7TmfsOm hP2llJPfcbSxWP3vQA2vQ8 U0iAChDWIjmoNrb7asLCfo dmUgYmVlbiByZXZpZXdlZC Zvb7XtBWxzOLS6EGxhqgSi bmNsdWRpbmcgSCZFLCBTcG DtwVXeORY8LTvehxWzebRn LO3dtS2hbZrxxS4caFNilV Y0yaraJATjDQNtqJafNUHk IC1hsYAlRVEcrfSDxQiuaM KxxY9fZ1ChECJlDSOycq8o CMQzwO0cRGkwd4QzhjmcPW BhAWElPTPuooJinn1hOBIq eLNLKI4KXJpwxFKnf2Shjm QxH4yDRJU0RCTiPbIfZlia QIYjmYHgcDXdQYFxaf73NY YoxY7avRfuOELwfJ2doN8k pVqoxN7aNsXrHxBnYBbeSQ 8wTVLfI7lppCPhIMHeJUMu I4xxNzXnuM4twNpeREuiVi QcJlNwEHemEMT8lM== Embedded Images (test code = [id number]) [facility] [id number] 20:37:10* Test Item Value Reference Range Interpretation Comme nts Case Report (test code = 6517098367) Surgical Pathology ?Case: [id number] ? Authorizing Provider: ?Nomi Robles Jr., JANAY ? Collected: ? 07/05/2021 1842 ?Ordering Location: ? ? [facility] ? ? ?Received: ?07/05/2021 1948 ? [facility] ?Pathologist: ? Eduardo Ordaz, PHD ?Specimen: ? ?TOE, RIGHT FOURTH TOE ? Final Diagnosis (test code = [id number]) o8kzaGGuKCYtw5bpRBKjxD FuZzEwMzNcZnRuYmpcdWMx IHtccnRmMVxlcGljOTYwMV cassVwWNUkgHHnL6Wsfyah NDuqEV7dLX9xsRetxFRllL DiOUJzPfPzj1wrj882fZJu o3sdBHKFtcpojDg1bYozT1 1vp2I9CyaeV59hgBFuKSR3 SQKqRCTrmRLmAAPlMUV5CA DpaUTeZ8ghRPWaFT1pgwur QPksWXicSCUvfHU0DLRrrZ OnE7GmATBzEJwgULKreqs8 AwHxAy0yrVPyoLraSTksGU JkXHBsYWluXGZzMjBccGFy IXGwDYDPY6qMXEQJVLRSFP OZY6IvJMZFDYKKAQJQH196 XFBeagUrYNHgBMUPD7CTMI 2WYjSGVG4WUfLGSRXAJTZJ RNVLPJQMMF1JVBZQLFhFHX lUSVNccGFyICAgICAtIFBS E9vFDYJHURZQCJiGJXcIAw EJKWHUVUEDFIKNOLEhW1Pq R6UCHJ3JTJOJYVJOH7ueKL IeWVXdDZ1zJ6kKRpTNDfDe O62TJISGUGRWIDOcErPOCR DROF5EBA9WSsdAXtLvUORL IFZJQUJMRSAgXHBhclxwYX QmNiHhAqYZyQKfNOPuYL6x ZV9VPoVpTDawPlWzMfGjMR AgMToyMyBQTVxwYXJcZnMy QImoFTB8e4pciAAkKGAunR ZgByLbKMIpJJZet8orAHFf bGFuZzEwMzNcZnRuYmpcdW OhLSXmHmOkc2yvp352vINd m9eeYAUhJkJ5oMGsADGyqQ ohsvq9dZrzYjPuQVVgo7gp cyBcZmNoYXJzZXQwIEFyaW ViO544SFElCYkwr6rgc3Dm HHPudQQie9E2PESAOPxtBw DoF778e2pbi5yraaDibIX9 HZGoBUF2AUnrmcXmpoB5RS csoWLoAnE4CDqeliWxPHwf ueIykmZlApg7ICRvT731WY D6hYzxa8ifJYC9HMQtXNPt NoqwBo1xcMVfN411JKQtGJ ILRRAcnQk4OLWsgmEyoeMe iGHXs410K794g1udNFItul PxeZrZhmscf9pqH694TLDp cGVydzEyMjQwXHBhcGVyaD T1DKLcLX7wwgotMEwiXAra IRHjzhE7YIKgiPRfY9MnPT IzUD4bawkfFHX4GIbiBYXk OHO3QkXsFPGut3Gakpm6Pi Japb1bhs35NVR8q3NkiTuz ZQQ1LDR5FxWpOb2gsDGiXV ViLT4mDpFadUBfLEVgtp01 uEihGDbdlcSvaK6zIiKtGP AyaEJiSLUsIG1xaLLqNUTe jO5ydkqbDPSkUzRxrwnyRI QmcShlvcUsIe3usQvjMTN6 CCzpH6rtsU5rOrJ2YKriE4 gwaK0eJFi6VSfsvQH5CYNu uI0qIO6bkdhgn5awTRkzLS dtNHJcorD0kkM4EHYfkIYb G6YirD0zMXAqBN7olawfc2 tvREC2OZkkVALuIEP8RgKb PGPra2Zuitc1WyGby3DsdF NxWYinO70vh619YLAwqyDr Y7mceVFsubfdrCOcfxueKC opioZ2AVVxIPCqWUsaBKFn XGZzMjBcbGFuZzEwMzNcaG ljaFxmMVxkYmNoXGYxXGxv D6swEiAsK8YmGWRgZySmcQ WuBRshiVQ5BFLuCLEhv46t eNz8TKKizhwtr9KvCUVjhH MbdZGfhH9rkzJrp6bqRRZd RYVqDNCsB2ErTLZ6aXMeVN YalHEgnCG5IB9lsbZjQJ3e ZGUgYnkgcmVzaWRlbnRzLC ZtGZmqe6peVE8aMZPobEmn sC6zeNF7NAFrj6fxpTSeiK Hys5tlt9JassDnLJeyKIYv ERhyPFDpEREqFJ4aLCHfiA QolqNav1Z9UelylJCgpbnj RwncbbC9JHlzciazSSWhKI riM3izPoMfQJUcdUnnUzpt l7MjLYJiULVfZsgjzMNntD 0= Clinical Information (test code = [id number]) OSTEOMYELITIS/GANGRENE OF RIGHT FOURTH TOE Gross Description (test code = 7574329100) a4wgxUVaOBLxaOGSZHXsXa zfcrVkGMDcfICeG3Minnrg LDgqUE6sBZ6jpDvrzWZewN OgWX9UPCBlIrTkZMOypUAr oaOcFlKsPUTvxQXkqNC6ET MoCH7ewcxsLVhvXZpxFZJg mlH7PJCdhFNgE5BaTNXcTR 3blebhBEV6ZTulnP2nqlIY BxffEt3qxXUrfMtwIxWiYn NoYXJzZXQwXGZuaWwgQXJp BWk4rB2KJprzMAN1DXNQRb qgNVUrYW4Dq2olDPCngXQc VGX8CAaamWQrEXAxGOLmPF f3NICpKInnmAViRG3ljWfi GiciiXkyt8EesJCoHDzpIN FnCCVgWZwiYJUzAT6ERvKp XSaOWaIlPuN4AeF0NPk7LL JJFnBwWuZsDGP3XYucJJiv YMy5KBu1BDgQHdTtByE9Hd O1UAhrIFV6UCO2AEeozUOn IFxcZiBBcmlhbCBcXGZzID DqAJtrPdudAUxxE67plAie dL3iKgHwUMUZQoHFQ1IiLP BhciANClxwbGFpblxlcGlj TmVzdERvYzEgDQpcbHRycG FyXGxpbjBccmluMCANClxs dHJjaFxmczIyIFNwZWNpbW GkVALtbCQpqhZzHNz1PJOl sT4vDe0npAAssZ5ucOTwIK lzKPZ9sIJeNPYvYHFzIMBp UE81R6QefkKoUUlwWJwbbh EeJgFuGHUgadcbwKCqKo76 cnRoIHRvZSIsIGFuZCBjb2 0wrUM3dwCxVdRmRMGwrr7k gZ8tCXWiIUPaMV51CWdkAt 5fJJlaYm1iTVMjQTT6dQfj rROnlxOpsMDprqYfH6RaQL BhIAAnsIK1fSYwuWG3JBVy hiBulHytdSCzO6ArwTBfu5 mqtS6oZFMxXSVhk69lEIUp o9TtxUoiyPuocTLzFFT6lp ThN5ZrTIx5GA4hswJoBlBp C50thXLzjEdxRKflmZ7mzW xvDIIdeO4fSU1oBZHvBgTq rTdhr8VvPGToh1YnrBkzex WjNKEopT4hNSEUqOAqlG8w BOdiHD2upJntSfDwqhpsJh N1dTKhWIOwbFMlCYmqeJke znZvrOnqvHIxaAR9uYwpy5 SrOBGpoJ4wobWehX0nVMYb ZXJlIGlzIGEgdGFuLXllbG wnhrK4pfR5GW9owUSgeDqa FGTeD9VuLFPtFQHxAKDqg9 4gKGFwcHJveGltYXRlbHkg Fb01BOjfHw62HBSxLPDzg5 SqtLLnPH5eCSRiKPFvm4Pr FXnwo4KmSjVyXBAnKrO8eR BigQ3dFIT7jSVbRBqdJfT0 phL6zFNfaGSicASdZDMaPB BsYXRlcmFsIHNpZGVzIHdo sIYpIAjdgk1uqiXoUOSySB Nri5mnUGTuURBur9Y3IUQy o0R4RWQlPCGfM1Iqg43ueI EwO5xxRQKkRNRyJTGflZEk fgIsTcLiA15yZjDloLV6yB XwFs8sFHBycVAumrBeP6Md YXRlZCBzdXJmYWNlLiAgVG hlIHJlbWFpbmRlciBvZiB0 wOQur3dpncNeypVsiEgaqD DsnSGpuoc1pCBzSQHzlWDs z4i3pIAed7ftUMRfe7UspP vnXc3lWMLmIEUzz55yEJtv JEAwT4Mzr53cKOG8mdSxHR ZlYWwgdGFuLXllbGxvdyB0 ciR3PA1ukpChCWVhkPakkF z9NKZpkc72lbCspIWha0Od ZmFjZXMuICBSZXByZXNlbn TltCe0DZSeRLN2bM5jomLs ekBnw7IwrKo8sWPyLQirKR HkZMYdXEAmv2qoq6zxnzty TUPrXXbhjINhF2T4mW7cUL 7gJZKuCDYgJAHQIu4onMGa IJ4NUSFxxtJKBgSnG3Ufi1 7cB45fYVunzRZdJM7IKFH2 HDWafD5hb49wfRR2eUDzuP ImdtGmCEL7vU8jFI8awwif iretEC1gVnZsEHvpFV43qH BqdUwdiMXpKL2XQTT2XOGv iyYbNDzsQKD3iWG0iZR6LV Voc8WmMoVxRGuyuUZbpSGd LTfvoBcolhc0IAXgI8Wfa8 4qPJdeOS06eFClgNfjHTCg zOadr0voFyKrWNTpmBTlVd cjIJKsl32xfWDxCA1OVJN9 HDSki8TmWUSeH9Rfr57xNG ZchKPil0WgrTN6zHJpVBEs u3rag3zpftedIHRwYHeqwR KbG7K0lJ1uBCPtbqIHQoko SCOfSTeRXOW1EKXlocEpmX umQVNDTR1ALSWbEIpzTNSe gDYFWZL2IU8nSQsicBEdhx roXVJdH2FrY1RcpjYgnYEt DMAfzwTks8xlVIP4OURetC GwmQQbNbBiNlocMKW0GKsj g0ceVZX3QOUbbIVmjZXrQH lsTaGhQcofXTCiX4GeK2Ww nhK0NUx5 Disclaimer (test code = [id number]) g5atjEWtDFAly1jdQLLsrT FuZzEwMzNcZnRuYmpcdWMx DShxwoPbHNdlh4JdY1WfYy AwMFxhbnNpXGRlZmxhbmcx PKIoGGT0qiGsDOVfSRbxGQ QlXWfbHh6gwGAsaVetTyDq HRMaq9mrdyGVJRlmRoZuS8 99BLAeFVqxf5kgf7CiARZt kWVxd0F5WJHMsncewXu2hF zlI35nb5O6CjuvE0qnMSFb NFToX9ZiPL6zRDVqMso5LS A0KCY3MIAtQAByP3IsQA0d KUEasXYoEOd4a1gtfZyjRK SsBMN7c2luZYiszqCnUL8m qf9fbUi2h3ijuhQtBQTfIK LvrDQQWLBiT1UklFqvIv0x kIe4pVyfTrlqFUE6Urg0AR 3zec18fuy6wUmxNNFhwwfc SlB6IUmhHZBjitjfAFb2TY foXREtrJP2GMIszGAvS5Ab OWWbYC3ugec8TWO9HWvpAC BdKcY5FMBmzIVrMEClvKhl JWmay402LKK2AiIjHZ9yZ7 Rbb6Q5jT4moYWnPSUjrUFa FaGfSJCrdd3wrHFySJrqu8 XjCNA4dgJ7bADalDQzYZFl SW04Aflxi6DjRedcy8IgU0 2dtQS0IMvbt6naIE8cKfH5 drLtWZakr5kdvN6yWwP4KM hnER5zDO2pNTJqvB0bohws XHBnYnJkcmhlYWRccGdicm CrLd1vbAswONQ1DJglQ7nq iD3fMpB3NYifQ8ezkU1tBF c2AUqrmOH5IVIuhW6tYU6l fmirn5izIQazXEngOUZcwn Q4flK2CIAsxPSoV2KlcM7n TEBpFT2iaavvr5tpAFP1SJ xrQTSiFXN0CdEwRHSav8Px crs5WoRpd2JyiYPkCFlaM6 3qd077YGCbimTaM7lwbQEb gflfqYCoqrznACtzgoG3DP VsiuYpn2WmWGDuQWL8BLjk DPqmnUErNFSnhJqar4kvL9 RscGFyXHBsYWluXGYxXGZz MjBcbGFuZzEwMzNcaGljaF fcYDqiItCxBEUzFYkoU7fc YyHdV8OnFENyAoNboEDqI1 ggVGhpcyByZXBvcnQgbWF5 XBtaA4h4SVCluvZkeOe6rj AkPyTzBNUaNJZ6XHprmITi WQZdo0CfaapncQVyGo0lzT McOAIhfK3fVKRbGXXoQPck SI7fxDz9KEQXtCLsrASvOc EORTDyWW35zzEuTTLMvfmr r5D1NLuiHSClf2BfdPZwW4 cjj8NjRPOmv77lKD8lr6J1 i4cjSUR7NV5ml3BqZMFdeF WpxVBbWEMaf4Kgrzupj6In IBFwalHdu3JiZSEponPmlU FyWTGgxcIaxc8qybZgHPPa QAMkX6ZphaevcMnqnqDmIN Yqnb2jhxNgLNO2UUKZHEQy CKNvs7UfiH9ckMZUKQS1qC Fwbb1yhrJSwHYdUHYekq78 RUSrAD0wR3atFTQfDXLgkx JpoLHbj9NrFZRfqOK4hWXy JI8IKqBVc86oJFPjOCMCpd MzQFWabIaeeMK8aeO6gA4m IChGREEpLlx+IFRoZSBGRE HmUW0shmEqg2JaplRpiMbi MQBdsHQfa8AvuAHzf9TdcJ qra0TejOAdkUQdGS9hRZXc clxwYXIgVVRNQiBMYWJvcm E2p8XkAWHrTSDdOBP8wUim wpp3VWNyzG3tRMCuL1ptgz bbUAcaDEZtg8IvcD8cxIBB cGOme0WlrNZejBTTeNTbDU 0gbuUvEKrHDQuIJEL4etYp MMTai6NdQHgmE1sfC36yqP gmzCz7oAG0KRX2fQ5vYus+ IFxwYXJccGFyIEFwcHJvcH QfWRGooQxsddYhC2OrrjGy qB8oxGBsclCjJJ5zIZ7wQ8 C9gMSdHAMarkTvq2snOGof dmUgYmVlbiByZXZpZXdlZC Two5BgQJuyCCY3QJnilpZk bmNsdWRpbmcgSCZFLCBTcG TuaLStKVM4USioncXchkAm VM0eiX1exFbvnP0blAVwnS P9fpzvMOLcGBWjmQxeQCNz SJ1apSXjFCOtgcZFpYpzaW XnpU7sV0TgJMEcSDHfew7t THKfdP3tPSprl1YhyqowPH EuFOScYUFitlRhzd7cPWAh kOLMHU8ZOZqcfKExb9Vbuq GbV4iLLZF8SUVgIvLqJrmb JSJucTFrxAIpBYAliv33FY OxmB0qvQpjEYCqbQ3syJ5b sHqqaZ8vEuTrWmZeARabRT 6oDQSmA8haiUYiGQWmZVWa M5ngPhTuoT3zyEdtBPirUe EdCnEjWOobWJQ1zN== Embedded Images (test code = [id number]) [facility] GLUCOSE (AUTOMATED)2021-07-07 17:04:49* Test Item Value Reference Range Interpretation Comme nts POCT GLU (test code = 9202540483) 295 mg/dL 70-110 H Lab Interpretation (test cod e = 22891-6) Abnormal [facility] GLUCOSE (AUTOMATED)2021-07-07 17:04:49* Test Item Value Reference Range Interpretation Comme nts POCT GLU (test code = 3699391801) 295 mg/dL 70-110 H Lab Interpretation (test cod e = 98341-6) Abnormal [facility] GLUCOSE (AUTOMATED)2021-07-07 14:55:34* Test Item Value Reference Range Interpretation Comme nts POCT GLU (test code = 4592662983) 191 mg/dL 70-110 H Lab Interpretation (test cod e = 64420-6) Abnormal [facility] GLUCOSE (AUTOMATED)2021-07-07 14:55:34* Test Item Value Reference Range Interpretation Comme nts POCT GLU (test code = 0693655763) 191 mg/dL 70-110 H Lab Interpretation (test cod e = 89022-1) Abnormal [facility] METABOLIC PANEL (NA, K, CL, CO2, GLUCOSE, BUN, CREATININE, CA)2021-07-07 13:14:37* Test Item Value Reference Range Interpretation Comme nts NA (test code = 9834667011) 139 mmol/L 135-145 K (test code = 7568538754) 3.9 mmol/L 3.5-5.0 CL (test code = 4883887077) 111 mmol/L 98-108 H CO2 TOTAL (test code = 5305263258) 22 mmol/L 23-31 L AGAP (test code = 4795510835) 2-16 BUN (test code = 5825940125) 19 mg/dL 7-23 GLUCOSE (test code = 6032156474) 189 mg/dL 70-110 H CREATININE (test code = 7061434419) 0.87 mg/dL 0.60-1.25 CALCIUM (test code = 4648941518) 8.5 mg/dL 8.6-10.6 L eGFR (test code = 7416537957) mL/min/1.73m2 BRYSON (test code = BRYSON) Association [...] imaging tests). Lab Interpretation (test code = 79575-6) Abnormal [facility] METABOLIC PANEL (NA, K, CL, CO2, GLUCOSE, BUN, CREATININE, CA)2021-07-07 13:14:37* Test Item Value Reference Range Interpretation Comme nts NA (test code = 4054791957) 139 mmol/L 135-145 K (test code = 3648013036) 3.9 mmol/L 3.5-5.0 CL (test code = 0205428985) 111 mmol/L 98-108 H CO2 TOTAL (test code = 8946657656) 22 mmol/L 23-31 L AGAP (test code = 8816435020) 2-16 BUN (test code = 3193699813) 19 mg/dL 7-23 GLUCOSE (test code = 4017617145) 189 mg/dL 70-110 H CREATININE (test code = 1206539992) 0.87 mg/dL 0.60-1.25 CALCIUM (test code = 7632010057) 8.5 mg/dL 8.6-10.6 L eGFR (test code = 0490907290) mL/min/1.73m2 BRYSON (test code = BRYSON) Association [...] imaging tests). Lab Interpretation (test code = 05741-1) Abnormal [facility] GLUCOSE (AUTOMATED)2021-07-07 13:02:32* Test Item Value Reference Range Interpretation Comme nts POCT GLU (test code = 5723011399) 174 mg/dL 70-110 H Lab Interpretation (test cod e = 24733-9) Abnormal [facility] GLUCOSE (AUTOMATED)2021-07-07 13:02:32* Test Item Value Reference Range Interpretation Comme nts POCT GLU (test code = 1912730924) 174 mg/dL 70-110 H Lab Interpretation (test cod e = 71972-5) Abnormal [facility] WITH [id number] 11:32:04* Test Item Value Reference Range Interpretation [...] 33.1 g/dL 31.2-35.0 RDW-SD (test code = 28625-7) 43.2 fL 38.5-51.6 RDW-CV (test code = 788-0) 12.5 % 12.1-15.4 PLT (test code = 777-3) See_Comment [Automated messa ge] The system which generated this result transmitted reference range: 150 - 328 10*3/?L. The reference range was not used to interpret this result as normal/abnormal. MPV (test code = 91497-9) 12.2 fL 9.8-13.0 NRBC/100 WBC (test code = 9172670193) See_Comment [Automated [employer] ssage] The system which generated this result transmitted reference range: 0.0 - 10.0 /100 WBCs. The reference range was not used to interpret this result as normal/abnormal. NRBC x10^3 (test code = 5497393023) <0.01 See_Comment [Automated messa ge] The system which generated this result transmitted reference range: 10*3/?L. The reference range was not used to interpret this result as normal/abnormal. GRAN MAT (NEUT) % (test code = 770-8) 66.0 % IMM GRAN % (test code = 3260329606) 0.50 % LYMPH % (test code = 736-9) 19.7 % MONO % (test code = 5905-5) 11.3 % EOS % (test code = 713-8) 2.1 % BASO % (test code = 706-2) 0.4 % GRAN MAT x10^3(ANC) (test code = 2757847434) 6.82 10*3/uL 1.99-6.95 IMM GRAN x10^3 (test code = 9702338950) 0.05 10*3/uL 0.00-0.06 LYMPH x10^3 (test code = 731-0) 2.03 10*3/uL 1.09-3.23 MONO x10^3 (test code = 742-7) 1.17 10*3/uL 0.36-1.02 H EOS x10^3 (test code = 711-2) 0.22 10*3/uL 0.06-0.53 BASO x10^3 (test code = 704-7) 0.04 10*3/uL 0.01-0.09 Lab Interpretation (test code = 74733-7) Abnormal [facility] WITH [id number] 11:32:04* Test Item Value Reference Range Interpretation [...] 33.1 g/dL 31.2-35.0 RDW-SD (test code = 40459-6) 43.2 fL 38.5-51.6 RDW-CV (test code = 788-0) 12.5 % 12.1-15.4 PLT (test code = 777-3) See_Comment [Automated messa ge] The system which generated this result transmitted reference range: 150 - 328 10*3/?L. The reference range was not used to interpret this result as normal/abnormal. MPV (test code = 29881-6) 12.2 fL 9.8-13.0 NRBC/100 WBC (test code = 6566540283) See_Comment [Automated [employer] ssage] The system which generated this result transmitted reference range: 0.0 - 10.0 /100 WBCs. The reference range was not used to interpret this result as normal/abnormal. NRBC x10^3 (test code = 7082074121) <0.01 See_Comment [Automated messa ge] The system which generated this result transmitted reference range: 10*3/?L. The reference range was not used to interpret this result as normal/abnormal. GRAN MAT (NEUT) % (test code = 770-8) 66.0 % IMM GRAN % (test code = 4217464379) 0.50 % LYMPH % (test code = 736-9) 19.7 % MONO % (test code = 5905-5) 11.3 % EOS % (test code = 713-8) 2.1 % BASO % (test code = 706-2) 0.4 % GRAN MAT x10^3(ANC) (test code = 6565040384) 6.82 10*3/uL 1.99-6.95 IMM GRAN x10^3 (test code = 4182480144) 0.05 10*3/uL 0.00-0.06 LYMPH x10^3 (test code = 731-0) 2.03 10*3/uL 1.09-3.23 MONO x10^3 (test code = 742-7) 1.17 10*3/uL 0.36-1.02 H EOS x10^3 (test code = 711-2) 0.22 10*3/uL 0.06-0.53 BASO x10^3 (test code = 704-7) 0.04 10*3/uL 0.01-0.09 Lab Interpretation (test code = 33305-9) Abnormal [facility] GLUCOSE (AUTOMATED)2021-07-07 05:09:45* Test Item Value Reference Range Interpretation Comme nts POCT GLU (test code = 8486678321) 144 mg/dL 70-110 H Lab Interpretation (test cod e = 27709-6) Abnormal [facility] GLUCOSE (AUTOMATED)2021-07-07 05:09:45* Test Item Value Reference Range Interpretation Comme nts POCT GLU (test code = 7329412860) 144 mg/dL 70-110 H Lab Interpretation (test cod e = 50887-5) Abnormal [facility] GLUCOSE (AUTOMATED)2021-07-06 21:53:08* Test Item Value Reference Range Interpretation Comme nts POCT GLU (test code = 0026388857) 175 mg/dL 70-110 H Lab Interpretation (test cod e = 43891-4) Abnormal [facility] GLUCOSE (AUTOMATED)2021-07-06 21:53:08* Test Item Value Reference Range Interpretation Comme nts POCT GLU (test code = 0673674792) 175 mg/dL 70-110 H Lab Interpretation (test cod e = 85650-5) Abnormal [facility] WITH [id number] 18:53:33* Test Item Value Reference Range Interpretation [...] 33.5 g/dL 31.2-35.0 RDW-SD (test code = 75526-3) 42.3 fL 38.5-51.6 RDW-CV (test code = 788-0) 12.4 % 12.1-15.4 PLT (test code = 777-3) See_Comment [Automated messa ge] The system which generated this result transmitted reference range: 150 - 328 10*3/?L. The reference range was not used to interpret this result as normal/abnormal. MPV (test code = 36441-0) 12.0 fL 9.8-13.0 NRBC/100 WBC (test code = 7065948241) See_Comment [Automated me ssage] The system which generated this result transmitted reference range: 0.0 - 10.0 /100 WBCs. The reference range was not used to interpret this result as normal/abnormal. NRBC x10^3 (test code = 3136585637) <0.01 See_Comment [Automated messa ge] The system which generated this result transmitted reference range: 10*3/?L. The reference range was not used to interpret this result as normal/abnormal. GRAN MAT (NEUT) % (test code = 770-8) 71.5 % IMM GRAN % (test code = 0593109061) 0.40 % LYMPH % (test code = 736-9) 16.7 % MONO % (test code = 5905-5) 10.6 % EOS % (test code = 713-8) 0.5 % BASO % (test code = 706-2) 0.3 % GRAN MAT x10^3(ANC) (test code = 9423602625) 7.86 10*3/uL 1.99-6.95 H IMM GRAN x10^3 (test code = 1065052262) 0.04 10*3/uL 0.00-0.06 LYMPH x10^3 (test code = 731-0) 1.84 10*3/uL 1.09-3.23 MONO x10^3 (test code = 742-7) 1.16 10*3/uL 0.36-1.02 H EOS x10^3 (test code = 711-2) 0.06 10*3/uL 0.06-0.53 BASO x10^3 (test code = 704-7) 0.03 10*3/uL 0.01-0.09 Lab Interpretation (test code = 29590-4) Abnormal [facility] WITH [id number] 18:53:33* Test Item Value Reference Range Interpretation [...] 33.5 g/dL 31.2-35.0 RDW-SD (test code = 58157-7) 42.3 fL 38.5-51.6 RDW-CV (test code = 788-0) 12.4 % 12.1-15.4 PLT (test code = 777-3) See_Comment [Automated messa ge] The system which generated this result transmitted reference range: 150 - 328 10*3/?L. The reference range was not used to interpret this result as normal/abnormal. MPV (test code = 23166-0) 12.0 fL 9.8-13.0 NRBC/100 WBC (test code = 7437838198) See_Comment [Automated [employer] ssage] The system which generated this result transmitted reference range: 0.0 - 10.0 /100 WBCs. The reference range was not used to interpret this result as normal/abnormal. NRBC x10^3 (test code = 3774854086) <0.01 See_Comment [Automated messa ge] The system which generated this result transmitted reference range: 10*3/?L. The reference range was not used to interpret this result as normal/abnormal. GRAN MAT (NEUT) % (test code = 770-8) 71.5 % IMM GRAN % (test code = 5603829739) 0.40 % LYMPH % (test code = 736-9) 16.7 % MONO % (test code = 5905-5) 10.6 % EOS % (test code = 713-8) 0.5 % BASO % (test code = 706-2) 0.3 % GRAN MAT x10^3(ANC) (test code = 8221688260) 7.86 10*3/uL 1.99-6.95 H IMM GRAN x10^3 (test code = 4013635150) 0.04 10*3/uL 0.00-0.06 LYMPH x10^3 (test code = 731-0) 1.84 10*3/uL 1.09-3.23 MONO x10^3 (test code = 742-7) 1.16 10*3/uL 0.36-1.02 H EOS x10^3 (test code = 711-2) 0.06 10*3/uL 0.06-0.53 BASO x10^3 (test code = 704-7) 0.03 10*3/uL 0.01-0.09 Lab Interpretation (test code = 59829-2) Abnormal [facility] WITH [id number] 18:53:33* Test Item Value Reference Range Interpretation [...] 33.5 g/dL 31.2-35.0 RDW-SD (test code = 58366-5) 42.3 fL 38.5-51.6 RDW-CV (test code = 788-0) 12.4 % 12.1-15.4 PLT (test code = 777-3) See_Comment [Automated messa ge] The system which generated this result transmitted reference range: 150 - 328 10*3/?L. The reference range was not used to interpret this result as normal/abnormal. MPV (test code = 94391-1) 12.0 fL 9.8-13.0 NRBC/100 WBC (test code = 4500530220) See_Comment [Automated me ssage] The system which generated this result transmitted reference range: 0.0 - 10.0 /100 WBCs. The reference range was not used to interpret this result as normal/abnormal. NRBC x10^3 (test code = 3958501843) <0.01 See_Comment [Automated messa ge] The system which generated this result transmitted reference range: 10*3/?L. The reference range was not used to interpret this result as normal/abnormal. GRAN MAT (NEUT) % (test code = 770-8) 71.5 % IMM GRAN % (test code = 7796569190) 0.40 % LYMPH % (test code = 736-9) 16.7 % MONO % (test code = 5905-5) 10.6 % EOS % (test code = 713-8) 0.5 % BASO % (test code = 706-2) 0.3 % GRAN MAT x10^3(ANC) (test code = 4558381605) 7.86 10*3/uL 1.99-6.95 H IMM GRAN x10^3 (test code = 9702004638) 0.04 10*3/uL 0.00-0.06 LYMPH x10^3 (test code = 731-0) 1.84 10*3/uL 1.09-3.23 MONO x10^3 (test code = 742-7) 1.16 10*3/uL 0.36-1.02 H EOS x10^3 (test code = 711-2) 0.06 10*3/uL 0.06-0.53 BASO x10^3 (test code = 704-7) 0.03 10*3/uL 0.01-0.09 Lab Interpretation (test code = 61712-8) [facility] Please draw trough BEFORE the 4th dose scheduled at 1200, but no more than 60 mins before the dose is due.2021-07-06 17:34:01* Test Item Value Reference Range Interpretation Comme nts VANCO TROUGH (test code = 9573347170) 13.4 ug/mL 10.0-20.0 BRYSON (test code = BRYSON) Toxic Range: ?>20 ug/mL 15-20 ug/mL is recommended for severe infection or when Vancomycin ELISE is greater than or equal to 2. Lab Interpretation (test code = 33621-1) [facility] - Please draw trough BEFORE the 4th dose scheduled at 1200, but no more than 60 mins before the dose is due.2021-07-06 17:34:01* Test Item Value Reference Range Interpretation Comme nts VANCO TROUGH (test code = 8766435064) 13.4 ug/mL 10.0-20.0 BRYSON (test code = BRYSON) Toxic Range: ?>20 ug/mL 15-20 ug/mL is recommended for severe infection or when Vancomycin ELISE is greater than or equal to 2. Lab Interpretation (test code = 58367-7) [facility] - Please draw trough BEFORE the 4th dose scheduled at 1200, but no more than 60 mins before the dose is due.2021-07-06 17:34:01* Test Item Value Reference Range Interpretation Comme nts VANCO TROUGH (test code = 7085979571) 13.4 ug/mL 10.0-20.0 BRYSON (test code = BRYSON) Toxic Range: ?>20 ug/mL 15-20 ug/mL is recommended for severe infection or when Vancomycin ELISE is greater than or equal to 2. Lab Interpretation (test code = 42747-3) Normal [facility] GLUCOSE (AUTOMATED)2021-07-06 16:47:55* Test Item Value Reference Range Interpretation Comme nts POCT GLU (test code = 7826488397) 321 mg/dL 70-110 H Lab Interpretation (test cod e = 83926-0) Abnormal [facility] GLUCOSE (AUTOMATED)2021-07-06 16:47:55* Test Item Value Reference Range Interpretation Comme nts POCT GLU (test code = 3265837846) 321 mg/dL 70-110 H Lab Interpretation (test cod e = 74014-7) Abnormal [facility] GLUCOSE (AUTOMATED)2021-07-06 16:47:55* Test Item Value Reference Range Interpretation Comme nts POCT GLU (test code = 9310184687) 321 mg/dL 70-110 H Lab Interpretation (test cod e = 86567-5) Abnormal [facility] GLUCOSE (AUTOMATED)2021-07-06 12:56:24* Test Item Value Reference Range Interpretation Comme nts POCT GLU (test code = 2226808012) 351 mg/dL 70-110 H Lab Interpretation (test cod e = 64533-4) Abnormal [facility] GLUCOSE (AUTOMATED)2021-07-06 12:56:24* Test Item Value Reference Range Interpretation Comme [facility] POCT GLU (test code = 6814853860) 351 mg/dL 70-110 H Lab Interpretation (test cod e = 33862-3) Abnormal [facility] GLUCOSE (AUTOMATED)2021-07-06 12:56:24* Test Item Value Reference Range Interpretation Comme [facility] POCT GLU (test code = 2499126976) 351 mg/dL 70-110 H Lab Interpretation (test cod e = 40582-7) Abnormal [facility]. METABOLIC PANEL (33461)2021-07-06 12:27:31* Test Item Value Reference Range Interpretation Comme [facility] NA (test code = 7607250213) 136 mmol/L 135-145 K (test code = 6182928581) 4.9 mmol/L 3.5-5.0 CL (test code = 8527099155) 106 mmol/L 98-108 CO2 TOTAL (test code = 7982063641) 18 mmol/L 23-31 L AGAP (test code = 4431848399) 2-16 BUN (test code = 8998301111) 19 mg/dL 7-23 GLUCOSE (test code = 5660230000) 346 mg/dL 70-110 H CREATININE (test code = 7158967483) 0.91 mg/dL 0.60-1.25 TOTAL BILI (test code = 3093936708) 0.4 mg/dL 0.1-1.1 CALCIUM (test code = 6441554150) 8.5 mg/dL 8.6-10.6 L T PROTEIN (test code = 5735630835) 5.9 g/dL 6.3-8.2 L ALBUMIN (test code = 7403823452) 2.9 g/dL 3.5-5.0 L ALK PHOS (test code = 1789779064) 105 U/L 34-122 ALTv (test code = 1742-6) 19 U/L 5-50 AST(SGOT) (test code = 6636565336) 24 U/L 13-40 eGFR (test code = 0089341009) mL/min/1.73m2 BRYSON (test code = BRYSON) Association [...] imaging tests). Lab Interpretation (test code = 60053-0) Abnormal [facility]. METABOLIC PANEL (12043)2021-07-06 12:27:31* Test Item Value Reference Range Interpretation Comme nts NA (test code = 2029051146) 136 mmol/L 135-145 K (test code = 9035059245) 4.9 mmol/L 3.5-5.0 CL (test code = 4615155199) 106 mmol/L 98-108 CO2 TOTAL (test code = 4873999055) 18 mmol/L 23-31 L AGAP (test code = 9219683998) 2-16 BUN (test code = 2687920883) 19 mg/dL 7-23 GLUCOSE (test code = 6606094411) 346 mg/dL 70-110 H CREATININE (test code = 8186498256) 0.91 mg/dL 0.60-1.25 TOTAL BILI (test code = 9406134775) 0.4 mg/dL 0.1-1.1 CALCIUM (test code = 2720364253) 8.5 mg/dL 8.6-10.6 L T PROTEIN (test code = 9249044323) 5.9 g/dL 6.3-8.2 L ALBUMIN (test code = 2906008576) 2.9 g/dL 3.5-5.0 L ALK PHOS (test code = 1297040129) 105 U/L 34-122 ALTv (test code = 1742-6) 19 U/L 5-50 AST(SGOT) (test code = 8751153368) 24 U/L 13-40 eGFR (test code = 9277479160) mL/min/1.73m2 BRYSON (test code = BRYSON) Association [...] imaging tests). Lab Interpretation (test code = 73091-4) Abnormal [facility] METABOLIC PANEL (87087)2021-07-06 12:27:31* Test Item Value Reference Range Interpretation Comme nts NA (test code = 9606988691) 136 mmol/L 135-145 K (test code = 9496106009) 4.9 mmol/L 3.5-5.0 CL (test code = 4032071537) 106 mmol/L 98-108 CO2 TOTAL (test code = 8889850077) 18 mmol/L 23-31 L AGAP (test code = 9469561590) 2-16 BUN (test code = 0337781317) 19 mg/dL 7-23 GLUCOSE (test code = 1941743475) 346 mg/dL 70-110 H CREATININE (test code = 3516171332) 0.91 mg/dL 0.60-1.25 TOTAL BILI (test code = 6423294882) 0.4 mg/dL 0.1-1.1 CALCIUM (test code = 7196926896) 8.5 mg/dL 8.6-10.6 L T PROTEIN (test code = 1335806971) 5.9 g/dL 6.3-8.2 L ALBUMIN (test code = 9652426186) 2.9 g/dL 3.5-5.0 L ALK PHOS (test code = 6034740560) 105 U/L 34-122 ALTv (test code = 1742-6) 19 U/L 5-50 AST(SGOT) (test code = 5031524153) 24 U/L 13-40 eGFR (test code = 2119862296) mL/min/1.73m2 BRYSON (test code = BRYSON) Association [...] imaging tests). Lab Interpretation (test code = 21805-7) Abnormal [facility] GLUCOSE (AUTOMATED)2021-07-05 22:49:47* Test Item Value Reference Range Interpretation Comme nts POCT GLU (test code = 5721818997) 175 mg/dL 70-110 H Lab Interpretation (test cod e = 34589-6) Abnormal [facility] GLUCOSE (AUTOMATED)2021-07-05 22:49:47* Test Item Value Reference Range Interpretation Comme nts POCT GLU (test code = 5533829768) 175 mg/dL 70-110 H Lab Interpretation (test cod e = 06030-5) Abnormal [facility] GLUCOSE (AUTOMATED)2021-07-05 22:49:47* Test Item Value Reference Range Interpretation Comme nts POCT GLU (test code = 4748647064) 175 mg/dL 70-110 H Lab Interpretation (test cod e = 51163-3) Abnormal [facility] GLUCOSE (AUTOMATED)2021-07-05 22:49:05* Test Item Value Reference Range Interpretation Comme nts POCT GLU (test code = 2209402785) 170 mg/dL 70-110 H Lab Interpretation (test cod e = 64583-8) Abnormal [facility] GLUCOSE (AUTOMATED)2021-07-05 22:49:05* Test Item Value Reference Range Interpretation Comme nts POCT GLU (test code = 6572493078) 185 mg/dL 70-110 H Lab Interpretation (test cod e = 83395-4) Abnormal [facility] GLUCOSE (AUTOMATED)2021-07-05 22:49:05* Test Item Value Reference Range Interpretation Comme nts POCT GLU (test code = 2174685557) 170 mg/dL 70-110 H Lab Interpretation (test cod e = 54004-6) [facility] 22:49:05* Test Item Value Reference Range Interpretation Comme nts POCT GLU (test code = 0491374806) 185 mg/dL 70-110 H Lab Interpretation (test cod e = 05546-6) Abnormal [facility] GLUCOSE (AUTOMATED)2021-07-05 22:49:05* Test Item Value Reference Range Interpretation Comme nts POCT GLU (test code = 0950361189) 170 mg/dL 70-110 H Lab Interpretation (test cod e = 30948-1) Abnormal [facility] GLUCOSE (AUTOMATED)2021-07-05 22:49:05* Test Item Value Reference Range Interpretation Comme nts POCT GLU (test code = 9203994762) 185 mg/dL 70-110 H Lab Interpretation (test cod e = 17858-1) Abnormal [facility] GLUCOSE (AUTOMATED)2021-07-05 11:56:21* Test Item Value Reference Range Interpretation Comme nts POCT GLU (test code = 4516680389) 167 mg/dL 70-110 H Lab Interpretation (test cod e = 44097-2) Abnormal [facility] GLUCOSE (AUTOMATED)2021-07-05 11:56:21* Test Item Value Reference Range Interpretation Comme nts POCT GLU (test code = 7436877948) 167 mg/dL 70-110 H Lab Interpretation (test cod e = 10861-2) Abnormal [facility] GLUCOSE (AUTOMATED)2021-07-05 11:56:21* Test Item Value Reference Range Interpretation Comme nts POCT GLU (test code = 6404965490) 167 mg/dL 70-110 H Lab Interpretation (test cod e = 33909-5) Abnormal [facility] GLUCOSE (AUTOMATED)2021-07-05 11:56:03* Test Item Value Reference Range Interpretation Comme nts POCT GLU (test code = 8422382169) 109 mg/dL 70-110 Lab Interpretation (test cod e = 31975-3) Normal [facility] GLUCOSE (AUTOMATED)2021-07-05 11:56:03* Test Item Value Reference Range Interpretation Comme nts POCT GLU (test code = 1138202623) 109 mg/dL 70-110 Lab Interpretation (test cod e = 78437-4) Normal [facility] GLUCOSE (AUTOMATED)2021-07-05 11:56:03* Test Item Value Reference Range Interpretation Comme nts POCT GLU (test code = 3488503593) 109 mg/dL 70-110 Lab Interpretation (test cod e = 67905-0) [id number] 11:48:19* Test Item Value Reference Range Interpretation Comme nts NT-proBNP (test code = 2313398731) 452 pg/mL See_Comment H [Automated message] The system which generated this result transmitted reference range: <=125. The reference range was not used to interpret this result as normal/abnormal. BRYSON (test code = BRYSON) Biotin has been reported to cause a negative bias, interpret results relative to patient's use of biotin. Lab Interpretation (test code = 83036-5) [facility] [id number]-[id number] 11:48:19* Test Item Value Reference Range Interpretation Comme nts NT-proBNP (test code = 3972240891) 452 pg/mL See_Comment H [Automated message] The system which generated this result transmitted reference range: <=125. The reference range was not used to interpret this result as normal/abnormal. BRYSON (test code = BRYSON) Biotin has been reported to cause a negative bias, interpret results relative to patient's use of biotin. Lab Interpretation (test code = 34369-9) [facility] [id number] 11:48:19* Test Item Value Reference Range Interpretation Comme nts NT-proBNP (test code = 5147629174) 452 pg/mL See_Comment H [Automated message] The system which generated this result transmitted reference range: <=125. The reference range was not used to interpret this result as normal/abnormal. BRYSON (test code = BRYSON) Biotin has been reported to cause a negative bias, interpret results relative to patient's use of biotin. Lab Interpretation (test code = 15414-1) [facility] Test Item Value Reference Range Interpretation Comme nts MAGNESIUM (test code = 9021145437) 2.1 mg/dL 1.7-2.4 Lab Interpretation (test cod e = 71698-4) [facility] 11:42:19* Test Item Value Reference Range Interpretation Comme nts MAGNESIUM (test code = 1765888682) 2.1 mg/dL 1.7-2.4 Lab Interpretation (test cod e = 36847-5) [facility] 11:42:19* Test Item Value Reference Range Interpretation Comme nts MAGNESIUM (test code = 1583723174) 2.1 mg/dL 1.7-2.4 Lab Interpretation (test cod e = 19602-7) Normal [facility]. METABOLIC PANEL (21608)2021-07-05 11:41:59* Test Item Value Reference Range Interpretation Comme nts NA (test code = 8579479805) 136 mmol/L 135-145 K (test code = 6343757172) 3.8 mmol/L 3.5-5.0 CL (test code = 4230019482) 107 mmol/L 98-108 CO2 TOTAL (test code = 0889542799) 19 mmol/L 23-31 L AGAP (test code = 1104501439) 2-16 BUN (test code = 2080538809) 14 mg/dL 7-23 GLUCOSE (test code = 4731467080) 152 mg/dL 70-110 H CREATININE (test code = 0161084802) 0.82 mg/dL 0.60-1.25 TOTAL BILI (test code = 9942089898) 0.4 mg/dL 0.1-1.1 CALCIUM (test code = 0124827820) 8.2 mg/dL 8.6-10.6 L T PROTEIN (test code = 7876812559) 5.9 g/dL 6.3-8.2 L ALBUMIN (test code = 7674852434) 2.9 g/dL 3.5-5.0 L ALK PHOS (test code = 4858761677) 97 U/L 34-122 ALTv (test code = 1742-6) 17 U/L 5-50 AST(SGOT) (test code = 6820241187) 25 U/L 13-40 eGFR (test code = 9278129802) mL/min/1.73m2 BRYSON (test code = BRYSON) Association [...] imaging tests). Lab Interpretation (test code = 15380-6) Abnormal [facility]. METABOLIC PANEL (97607)2021-07-05 11:41:59* Test Item Value Reference Range Interpretation Comme nts NA (test code = 5058444220) 136 mmol/L 135-145 K (test code = 0303041554) 3.8 mmol/L 3.5-5.0 CL (test code = 8730695341) 107 mmol/L 98-108 CO2 TOTAL (test code = 3903451155) 19 mmol/L 23-31 L AGAP (test code = 9837419982) 2-16 BUN (test code = 2373847627) 14 mg/dL 7-23 GLUCOSE (test code = 0043775071) 152 mg/dL 70-110 H CREATININE (test code = 0869538870) 0.82 mg/dL 0.60-1.25 TOTAL BILI (test code = 2223166345) 0.4 mg/dL 0.1-1.1 CALCIUM (test code = 4658135372) 8.2 mg/dL 8.6-10.6 L T PROTEIN (test code = 5017749891) 5.9 g/dL 6.3-8.2 L ALBUMIN (test code = 3215968866) 2.9 g/dL 3.5-5.0 L ALK PHOS (test code = 6519792894) 97 U/L 34-122 ALTv (test code = 1742-6) 17 U/L 5-50 AST(SGOT) (test code = 0575392054) 25 U/L 13-40 eGFR (test code = 1687894292) mL/min/1.73m2 BRYSON (test code = BRYSON) Association [...] imaging tests). Lab Interpretation (test code = 49004-0) Abnormal [facility]. METABOLIC PANEL (66927)2021-07-05 11:41:59* Test Item Value Reference Range Interpretation Comme nts NA (test code = 9211548743) 136 mmol/L 135-145 K (test code = 9943215152) 3.8 mmol/L 3.5-5.0 CL (test code = 5854847671) 107 mmol/L 98-108 CO2 TOTAL (test code = 1820240257) 19 mmol/L 23-31 L AGAP (test code = 3900723125) 2-16 BUN (test code = 6537718599) 14 mg/dL 7-23 GLUCOSE (test code = 9157311156) 152 mg/dL 70-110 H CREATININE (test code = 6473460109) 0.82 mg/dL 0.60-1.25 TOTAL BILI (test code = 4184980936) 0.4 mg/dL 0.1-1.1 CALCIUM (test code = 7981561892) 8.2 mg/dL 8.6-10.6 L T PROTEIN (test code = 9832891897) 5.9 g/dL 6.3-8.2 L ALBUMIN (test code = 2758015861) 2.9 g/dL 3.5-5.0 L ALK PHOS (test code = 6607822645) 97 U/L 34-122 ALTv (test code = 1742-6) 17 U/L 5-50 AST(SGOT) (test code = 8892668432) 25 U/L 13-40 eGFR (test code = 5197505772) mL/min/1.73m2 BRYSON (test code = BRYSON) Association [...] imaging tests). Lab Interpretation (test code = 38101-7) Abnormal [facility] WITH [id number] 11:13:33* Test Item Value Reference Range Interpretation Comme nts WBC (test code = 6690-2) See_Comment H [[employer]] The system which generated this result transmitted reference range: 4.20 - 10.70 10*3/?L. The reference range was not used to interpret this result as normal/abnormal. RBC (test code = 789-8) See_Comment L [[employer]] The system which generated this result transmitted [...] 34.2 g/dL 31.2-35.0 RDW-SD (test code = 51544-3) 42.6 fL 38.5-51.6 RDW-CV (test code = 788-0) 12.3 % 12.1-15.4 PLT (test code = 777-3) See_Comment [Automated messa ge] The system which generated this result transmitted reference range: 150 - 328 10*3/?L. The reference range was not used to interpret this result as normal/abnormal. MPV (test code = 76741-5) 12.5 fL 9.8-13.0 NRBC/100 WBC (test code = 7317074360) See_Comment [Automated [employer] ssage] The system which generated this result transmitted reference range: 0.0 - 10.0 /100 WBCs. The reference range was not used to interpret this result as normal/abnormal. NRBC x10^3 (test code = 3950707210) <0.01 See_Comment [Automated messa ge] The system which generated this result transmitted reference range: 10*3/?L. The reference range was not used to interpret this result as normal/abnormal. GRAN MAT (NEUT) % (test code = 770-8) 72.3 % IMM GRAN % (test code = 3001882200) 0.50 % LYMPH % (test code = 736-9) 14.0 % MONO % (test code = 5905-5) 11.4 % EOS % (test code = 713-8) 1.4 % BASO % (test code = 706-2) 0.4 % GRAN MAT x10^3(ANC) (test code = 2714419565) 7.97 10*3/uL 1.99-6.95 H IMM GRAN x10^3 (test code = 6289493253) 0.05 10*3/uL 0.00-0.06 LYMPH x10^3 (test code = 731-0) 1.54 10*3/uL 1.09-3.23 MONO x10^3 (test code = 742-7) 1.26 10*3/uL 0.36-1.02 H EOS x10^3 (test code = 711-2) 0.15 10*3/uL 0.06-0.53 BASO x10^3 (test code = 704-7) 0.04 10*3/uL 0.01-0.09 Lab Interpretation (test code = 98090-3) Abnormal [facility] WITH [id number] 11:13:33* Test Item Value Reference Range Interpretation [...] 34.2 g/dL 31.2-35.0 RDW-SD (test code = 65399-6) 42.6 fL 38.5-51.6 RDW-CV (test code = 788-0) 12.3 % 12.1-15.4 PLT (test code = 777-3) See_Comment [Automated messa ge] The system which generated this result transmitted reference range: 150 - 328 10*3/?L. The reference range was not used to interpret this result as normal/abnormal. MPV (test code = 96261-4) 12.5 fL 9.8-13.0 NRBC/100 WBC (test code = 2786132161) See_Comment [Automated me ssage] The system which generated this result transmitted reference range: 0.0 - 10.0 /100 WBCs. The reference range was not used to interpret this result as normal/abnormal. NRBC x10^3 (test code = 3343755709) <0.01 See_Comment [Automated messa ge] The system which generated this result transmitted reference range: 10*3/?L. The reference range was not used to interpret this result as normal/abnormal. GRAN MAT (NEUT) % (test code = 770-8) 72.3 % IMM GRAN % (test code = 7650483733) 0.50 % LYMPH % (test code = 736-9) 14.0 % MONO % (test code = 5905-5) 11.4 % EOS % (test code = 713-8) 1.4 % BASO % (test code = 706-2) 0.4 % GRAN MAT x10^3(ANC) (test code = 1061622183) 7.97 10*3/uL 1.99-6.95 H IMM GRAN x10^3 (test code = 3829843470) 0.05 10*3/uL 0.00-0.06 LYMPH x10^3 (test code = 731-0) 1.54 10*3/uL 1.09-3.23 MONO x10^3 (test code = 742-7) 1.26 10*3/uL 0.36-1.02 H EOS x10^3 (test code = 711-2) 0.15 10*3/uL 0.06-0.53 BASO x10^3 (test code = 704-7) 0.04 10*3/uL 0.01-0.09 Lab Interpretation (test code = 51642-7) Abnormal [facility] WITH [id number] 11:13:33* Test Item Value Reference Range Interpretation [...] 34.2 g/dL 31.2-35.0 RDW-SD (test code = 68500-1) 42.6 fL 38.5-51.6 RDW-CV (test code = 788-0) 12.3 % 12.1-15.4 PLT (test code = 777-3) See_Comment [Automated messa ge] The system which generated this result transmitted reference range: 150 - 328 10*3/?L. The reference range was not used to interpret this result as normal/abnormal. MPV (test code = 57061-8) 12.5 fL 9.8-13.0 NRBC/100 WBC (test code = 0593269995) See_Comment [Automated [employer] ssage] The system which generated this result transmitted reference range: 0.0 - 10.0 /100 WBCs. The reference range was not used to interpret this result as normal/abnormal. NRBC x10^3 (test code = 9809902572) <0.01 See_Comment [Automated messa ge] The system which generated this result transmitted reference range: 10*3/?L. The reference range was not used to interpret this result as normal/abnormal. GRAN MAT (NEUT) % (test code = 770-8) 72.3 % IMM GRAN % (test code = 8420365743) 0.50 % LYMPH % (test code = 736-9) 14.0 % MONO % (test code = 5905-5) 11.4 % EOS % (test code = 713-8) 1.4 % BASO % (test code = 706-2) 0.4 % GRAN MAT x10^3(ANC) (test code = 8623459621) 7.97 10*3/uL 1.99-6.95 H IMM GRAN x10^3 (test code = 0278962320) 0.05 10*3/uL 0.00-0.06 LYMPH x10^3 (test code = 731-0) 1.54 10*3/uL 1.09-3.23 MONO x10^3 (test code = 742-7) 1.26 10*3/uL 0.36-1.02 H EOS x10^3 (test code = 711-2) 0.15 10*3/uL 0.06-0.53 BASO x10^3 (test code = 704-7) 0.04 10*3/uL 0.01-0.09 Lab Interpretation (test code = 33143-4) Abnormal [facility] GLUCOSE (AUTOMATED)2021-07-04 18:13:05* Test Item Value Reference Range Interpretation Comme nts POCT GLU (test code = 7877011884) 237 mg/dL 70-110 H Lab Interpretation (test cod e = 67058-6) Abnormal [facility] GLUCOSE (AUTOMATED)2021-07-04 18:13:05* Test Item Value Reference Range Interpretation Comme nts POCT GLU (test code = 6164367425) 237 mg/dL 70-110 H Lab Interpretation (test cod e = 68300-1) Abnormal [facility] GLUCOSE (AUTOMATED)2021-07-04 18:13:05* Test Item Value Reference Range Interpretation Comme nts POCT GLU (test code = 8594199324) 237 mg/dL 70-110 H Lab Interpretation (test cod e = 79694-0) [facility] - Draw no more than 60 minutes before the 1200 dose.2021-07-04 17:26:07* Test Item Value Reference Range Interpretation Comme nts VANCO TROUGH (test code = 4752448377) 9.1 ug/mL 10.0-20.0 L BRYSON (test code = BRYSON) Toxic Range: ?>20 ug/mL 15-20 ug/mL is recommended for severe infection or when Vancomycin ELISE is greater than or equal to 2. Lab Interpretation (test code = 28201-2) [facility] - Draw no more than 60 minutes before the 1200 dose.2021-07-04 17:26:07* Test Item Value Reference Range Interpretation Comme nts VANCO TROUGH (test code = 7767798802) 9.1 ug/mL 10.0-20.0 L BRYSON (test code = BRYSON) Toxic Range: ?>20 ug/mL 15-20 ug/mL is recommended for severe infection or when Vancomycin ELISE is greater than or equal to 2. Lab Interpretation (test code = 95512-5) [facility] - Draw no more than 60 minutes before the 1200 dose.2021-07-04 17:26:07* Test Item Value Reference Range Interpretation Comme nts VANCO TROUGH (test code = 4477012911) 9.1 ug/mL 10.0-20.0 L BRYSON (test code = BRYSON) Toxic Range: ?>20 ug/mL 15-20 ug/mL is recommended for severe infection or when Vancomycin ELISE is greater than or equal to 2. Lab Interpretation (test code = 65653-0) Abnormal [facility]-REACTIVE [id number] 15:31:30* Test Item Value Reference Range Interpretation Comme nts CRP (test code = 8026644760) 12.0 mg/dL <0.8 H Lab Interpretation (test cod e = 95884-6) Abnormal [facility]-REACTIVE [id number] 15:31:30* Test Item Value Reference Range Interpretation Comme nts CRP (test code = 7812956927) 12.0 mg/dL <0.8 H Lab Interpretation (test cod e = 26047-6) Abnormal [facility]-REACTIVE [id number] 15:31:30* Test Item Value Reference Range Interpretation Comme nts CRP (test code = 7312615393) 12.0 mg/dL <0.8 H Lab Interpretation (test cod e = 79861-8) Abnormal [facility] GLUCOSE (AUTOMATED)2021-07-04 14:30:27* Test Item Value Reference Range Interpretation Comme nts POCT GLU (test code = 5255221593) 190 mg/dL 70-110 H Lab Interpretation (test cod e = 19032-9) Abnormal [facility] GLUCOSE (AUTOMATED)2021-07-04 14:30:27* Test Item Value Reference Range Interpretation Comme nts POCT GLU (test code = 2793960754) 190 mg/dL 70-110 H Lab Interpretation (test cod e = 60660-3) Abnormal [facility] GLUCOSE (AUTOMATED)2021-07-04 14:30:27* Test Item Value Reference Range Interpretation Comme [facility] POCT GLU (test code = 4567702716) 190 mg/dL 70-110 H Lab Interpretation (test cod e = 90157-1) [facility], [id number] 14:26:51* Test Item Value Reference Range Interpretation Comme [facility] VIT D 25OH (test code = 02452-0) 13 ng/mL 25-80 L BRYSON (test code = BRYSON) Deficiency: <20 ng/mLInsufficiency: 20-24 ng/mLOptimal: 25-80 ng/mL Lab Interpretation (test code = 29434-7) [facility], [id number] 14:26:51* Test Item Value Reference Range Interpretation Comme [facility] VIT D 25OH (test code = 79506-8) 13 ng/mL 25-80 L BRYSON (test code = BRYSON) Deficiency: <20 ng/mLInsufficiency: 20-24 ng/mLOptimal: 25-80 ng/mL Lab Interpretation (test code = 52532-9) [facility], [id number] 14:26:51* Test Item Value Reference Range Interpretation Comme [facility] VIT D 25OH (test code = 28380-4) 13 ng/mL 25-80 L BRYSON (test code = BRYSON) Deficiency: <20 ng/mLInsufficiency: 20-24 ng/mLOptimal: 25-80 ng/mL Lab Interpretation (test code = 55944-3) [facility] [id number] 13:47:46* Test Item Value Reference Range Interpretation Comme [facility] WBC (test code = 6690-2) See_Comment H [...] 34.0 g/dL 31.2-35.0 RDW-SD (test code = 78965-8) 42.5 fL 38.5-51.6 RDW-CV (test code = 788-0) 12.4 % 12.1-15.4 PLT (test code = 777-3) See_Comment [Automated [employer] ge] The system which generated this result transmitted reference range: 150 - 328 10*3/?L. The reference range was not used to interpret this result as normal/abnormal. MPV (test code = 36399-7) 13.5 fL 9.8-13.0 H IPF % (test code = 2535983382) 9.6 % 1.2-10.7 Platelet count measured by fluorescence method. NRBC/100 WBC (test code = 5727490857) See_Comment [Automated [employer]] The system which generated this result transmitted reference range: 0.0 - 10.0 /100 WBCs. The reference range was not used to interpret this result as normal/abnormal. NRBC x10^3 (test code = 0115162957) <0.01 See_Comment [Automated [employer]] The system which generated this result transmitted reference range: 10*3/?L. The reference range was not used to interpret this result as normal/abnormal. GRAN MAT (NEUT) % (test code = 770-8) 71.3 % IMM GRAN % (test code = 5629011743) 0.60 % LYMPH % (test code = 736-9) 15.8 % MONO % (test code = 5905-5) 11.2 % EOS % (test code = 713-8) 0.8 % BASO % (test code = 706-2) 0.3 % GRAN MAT x10^3(ANC) (test code = 7059632544) 8.92 10*3/uL 1.99-6.95 H IMM GRAN x10^3 (test code = 9777559056) 0.07 10*3/uL 0.00-0.06 H LYMPH x10^3 (test code = 731-0) 1.97 10*3/uL 1.09-3.23 MONO x10^3 (test code = 742-7) 1.40 10*3/uL 0.36-1.02 H EOS x10^3 (test code = 711-2) 0.10 10*3/uL 0.06-0.53 BASO x10^3 (test code = 704-7) 0.04 10*3/uL 0.01-0.09 Lab Interpretation (test code = 27749-6) Abnormal [facility] WITH [id number] 13:47:46* Test Item Value Reference Range Interpretation [...] 34.0 g/dL 31.2-35.0 RDW-SD (test code = 05409-8) 42.5 fL 38.5-51.6 RDW-CV (test code = 788-0) 12.4 % 12.1-15.4 PLT (test code = 777-3) See_Comment [Automated messa ge] The system which generated this result transmitted reference range: 150 - 328 10*3/?L. The reference range was not used to interpret this result as normal/abnormal. MPV (test code = 57297-7) 13.5 fL 9.8-13.0 H IPF % (test code = 3983281568) 9.6 % 1.2-10.7 Platelet count measured by fluorescence method. NRBC/100 WBC (test code = 9646557015) See_Comment [Automated me ssage] The system which generated this result transmitted reference range: 0.0 - 10.0 /100 WBCs. The reference range was not used to interpret this result as normal/abnormal. NRBC x10^3 (test code = 3534878542) <0.01 See_Comment [Automated messa ge] The system which generated this result transmitted reference range: 10*3/?L. The reference range was not used to interpret this result as normal/abnormal. GRAN MAT (NEUT) % (test code = 770-8) 71.3 % IMM GRAN % (test code = 1845930980) 0.60 % LYMPH % (test code = 736-9) 15.8 % MONO % (test code = 5905-5) 11.2 % EOS % (test code = 713-8) 0.8 % BASO % (test code = 706-2) 0.3 % GRAN MAT x10^3(ANC) (test code = 5231548489) 8.92 10*3/uL 1.99-6.95 H IMM GRAN x10^3 (test code = 0492201044) 0.07 10*3/uL 0.00-0.06 H LYMPH x10^3 (test code = 731-0) 1.97 10*3/uL 1.09-3.23 MONO x10^3 (test code = 742-7) 1.40 10*3/uL 0.36-1.02 H EOS x10^3 (test code = 711-2) 0.10 10*3/uL 0.06-0.53 BASO x10^3 (test code = 704-7) 0.04 10*3/uL 0.01-0.09 Lab Interpretation (test code = 40044-3) Abnormal [facility] WITH [id number] 13:47:46* Test Item Value Reference Range Interpretation Comme nts WBC (test code = 6690-2) See_Comment H [Automated messa ge] The system which generated this result transmitted reference range: 4.20 - 10.70 10*3/?L. The reference range was not used to interpret this result as normal/abnormal. RBC (test code = 789-8) See_Comment L [Automated [employer] ge] The system which generated this result [...] 34.0 g/dL 31.2-35.0 RDW-SD (test code = 05959-6) 42.5 fL 38.5-51.6 RDW-CV (test code = 788-0) 12.4 % 12.1-15.4 PLT (test code = 777-3) See_Comment [Automated [employer] ge] The system which generated this result transmitted reference range: 150 - 328 10*3/?L. The reference range was not used to interpret this result as normal/abnormal. MPV (test code = 88464-5) 13.5 fL 9.8-13.0 H IPF % (test code = 3181203937) 9.6 % 1.2-10.7 Platelet count measured by fluorescence method. NRBC/100 WBC (test code = 8324769264) See_Comment [Automated [employer]] The system which generated this result transmitted reference range: 0.0 - 10.0 /100 WBCs. The reference range was not used to interpret this result as normal/abnormal. NRBC x10^3 (test code = 6596209737) <0.01 See_Comment [Automated [employer] ge] The system which generated this result transmitted reference range: 10*3/?L. The reference range was not used to interpret this result as normal/abnormal. GRAN MAT (NEUT) % (test code = 770-8) 71.3 % IMM GRAN % (test code = 8767700034) 0.60 % LYMPH % (test code = 736-9) 15.8 % MONO % (test code = 5905-5) 11.2 % EOS % (test code = 713-8) 0.8 % BASO % (test code = 706-2) 0.3 % GRAN MAT x10^3(ANC) (test code = 5849605895) 8.92 10*3/uL 1.99-6.95 H IMM GRAN x10^3 (test code = 4570820295) 0.07 10*3/uL 0.00-0.06 H LYMPH x10^3 (test code = 731-0) 1.97 10*3/uL 1.09-3.23 MONO x10^3 (test code = 742-7) 1.40 10*3/uL 0.36-1.02 H EOS x10^3 (test code = 711-2) 0.10 10*3/uL 0.06-0.53 BASO x10^3 (test code = 704-7) 0.04 10*3/uL 0.01-0.09 Lab Interpretation (test code = 43430-4) Abnormal [facility]-TERMINAL [id number] 13:33:20* Test Item Value Reference Range Interpretation Comme nts NT-proBNP (test code = 8084136645) 291 pg/mL See_Comment H [Automated message] The system which generated this result transmitted reference range: <=125. The reference range was not used to interpret this result as normal/abnormal. BRYSON (test code = BRYSON) Biotin has been reported to cause a negative bias, interpret results relative to patient's use of biotin. Lab Interpretation (test code = 82046-3) Abnormal [facility]-TERMINAL [id number] 13:33:20* Test Item Value Reference Range Interpretation Comme nts NT-proBNP (test code = 0379485125) 291 pg/mL See_Comment H [Automated message] The system which generated this result transmitted reference range: <=125. The reference range was not used to interpret this result as normal/abnormal. BRYSON (test code = BRYSON) Biotin has been reported to cause a negative bias, interpret results relative to patient's use of biotin. Lab Interpretation (test code = 99388-3) [facility] [id number] 13:33:20* Test Item Value Reference Range Interpretation Comme nts NT-proBNP (test code = 3399758589) 291 pg/mL See_Comment H [Automated message] The system which generated this result transmitted reference range: <=125. The reference range was not used to interpret this result as normal/abnormal. BRYSON (test code = BRYSON) Biotin has been reported to cause a negative bias, interpret results relative to patient's use of biotin. Lab Interpretation (test code = 58428-8) Abnormal [facility]2021-09-27 13:18:00* Test Item Value Reference Range Interpretation Comme nts MAGNESIUM (test code = 7047622783) 2.1 mg/dL 1.7-2.4 Lab Interpretation (test cod e = 21497-1) Normal [facility]2021-09-27 13:18:00* Test Item Value Reference Range Interpretation Comme nts MAGNESIUM (test code = 4208306337) 2.1 mg/dL 1.7-2.4 Lab Interpretation (test cod e = 38521-3) Normal [facility]2021-09-27 13:18:00* Test Item Value Reference Range Interpretation Comme nts MAGNESIUM (test code = 7599821268) 2.1 mg/dL 1.7-2.4 Lab Interpretation (test cod e = 51121-5) [facility] (85129)2021-07-04 13:17:39* Test Item Value Reference Range Interpretation Comme nts NA (test code = 7227303266) 135 mmol/L 135-145 K (test code = 6865492114) 3.8 mmol/L 3.5-5.0 CL (test code = 4243117385) 106 mmol/L 98-108 CO2 TOTAL (test code = 9020947609) 22 mmol/L 23-31 L AGAP (test code = 5437693493) 2-16 BUN (test code = 4229581206) 14 mg/dL 7-23 GLUCOSE (test code = 5429597841) 151 mg/dL 70-110 H CREATININE (test code = 1110119271) 0.78 mg/dL 0.60-1.25 TOTAL BILI (test code = 8019879957) 0.5 mg/dL 0.1-1.1 CALCIUM (test code = 0251820495) 8.1 mg/dL 8.6-10.6 L T PROTEIN (test code = 0281567036) 5.6 g/dL 6.3-8.2 L ALBUMIN (test code = 3604033623) 2.7 g/dL 3.5-5.0 L ALK PHOS (test code = 2503194027) 75 U/L 34-122 ALTv (test code = 1742-6) 13 U/L 5-50 AST(SGOT) (test code = 8150643802) 20 U/L 13-40 eGFR (test code = 5300806164) mL/min/1.73m2 BRYSON (test code = BRYSON) Association [...] imaging tests). Lab Interpretation (test code = 88654-0) Abnormal [facility]. METABOLIC PANEL (21581)2021-07-04 13:17:39* Test Item Value Reference Range Interpretation Comme nts NA (test code = 2944224723) 135 mmol/L 135-145 K (test code = 7103585832) 3.8 mmol/L 3.5-5.0 CL (test code = 4201378864) 106 mmol/L 98-108 CO2 TOTAL (test code = 3821677473) 22 mmol/L 23-31 L AGAP (test code = 8855892968) 2-16 BUN (test code = 4774122453) 14 mg/dL 7-23 GLUCOSE (test code = 2851583768) 151 mg/dL 70-110 H CREATININE (test code = 1070141112) 0.78 mg/dL 0.60-1.25 TOTAL BILI (test code = 5973901376) 0.5 mg/dL 0.1-1.1 CALCIUM (test code = 4020299733) 8.1 mg/dL 8.6-10.6 L T PROTEIN (test code = 2645128378) 5.6 g/dL 6.3-8.2 L ALBUMIN (test code = 8756090596) 2.7 g/dL 3.5-5.0 L ALK PHOS (test code = 7981614136) 75 U/L 34-122 ALTv (test code = 1742-6) 13 U/L 5-50 AST(SGOT) (test code = 8139571723) 20 U/L 13-40 eGFR (test code = 1683787247) mL/min/1.73m2 BRYSON (test code = BRYSON) Association [...] imaging tests). Lab Interpretation (test code = 20996-6) [facility] (52533)2021-07-04 13:17:39* Test Item Value Reference Range Interpretation Comme nts NA (test code = 6531017491) 135 mmol/L 135-145 K (test code = 1387132169) 3.8 mmol/L 3.5-5.0 CL (test code = 9542198358) 106 mmol/L 98-108 CO2 TOTAL (test code = 7686112940) 22 mmol/L 23-31 L AGAP (test code = 7563472662) 2-16 BUN (test code = 6304957264) 14 mg/dL 7-23 GLUCOSE (test code = 1303801637) 151 mg/dL 70-110 H CREATININE (test code = 3395561677) 0.78 mg/dL 0.60-1.25 TOTAL BILI (test code = 7391331779) 0.5 mg/dL 0.1-1.1 CALCIUM (test code = 8914998361) 8.1 mg/dL 8.6-10.6 L T PROTEIN (test code = 8953438088) 5.6 g/dL 6.3-8.2 L ALBUMIN (test code = 4476973949) 2.7 g/dL 3.5-5.0 L ALK PHOS (test code = 3786129602) 75 U/L 34-122 ALTv (test code = 1742-6) 13 U/L 5-50 AST(SGOT) (test code = 6935894822) 20 U/L 13-40 eGFR (test code = 4268750782) mL/min/1.73m2 BRYSON (test code = BRYSON) Association [...] imaging tests). Lab Interpretation (test code = 92875-5) [facility] 13:17:19* Test Item Value Reference Range Interpretation Comme nts PHOSPHORUS (test code = 1007851821) 3.4 mg/dL 2.5-5.0 Lab Interpretation (test cod e = 85749-1) [facility]21[facility]27 13:17:19* Test Item Value Reference Range Interpretation Comme nts PHOSPHORUS (test code = 2743803305) 3.4 mg/dL 2.5-5.0 Lab Interpretation (test cod e = 93828-3) [facility]21[facility] 13:17:19* Test Item Value Reference Range Interpretation Comme nts PHOSPHORUS (test code = 6161738552) 3.4 mg/dL 2.5-5.0 Lab Interpretation (test cod e = 04353-2) Normal [facility] GLUCOSE (AUTOMATED)2021-07-04 12:05:44* Test Item Value Reference Range Interpretation Comme nts POCT GLU (test code = 0800289009) 211 mg/dL 70-110 H Lab Interpretation (test cod e = 83884-2) Abnormal [facility] GLUCOSE (AUTOMATED)2021-07-04 12:05:44* Test Item Value Reference Range Interpretation Comme nts POCT GLU (test code = 6252019696) 211 mg/dL 70-110 H Lab Interpretation (test cod e = 86001-7) Abnormal [facility] GLUCOSE (AUTOMATED)2021-07-04 12:05:44* Test Item Value Reference Range Interpretation Comme nts POCT GLU (test code = 0029996834) 211 mg/dL 70-110 H Lab Interpretation (test cod e = 25528-1) Abnormal [facility] GLUCOSE (AUTOMATED)2021-07-04 12:05:22* Test Item Value Reference Range Interpretation Comme nts POCT GLU (test code = 6752927585) 124 mg/dL 70-110 H Lab Interpretation (test cod e = 85234-8) Abnormal [facility] GLUCOSE (AUTOMATED)2021-07-04 12:05:22* Test Item Value Reference Range Interpretation Comme nts POCT GLU (test code = 4858313405) 124 mg/dL 70-110 H Lab Interpretation (test cod e = 37017-8) Abnormal [facility] GLUCOSE (AUTOMATED)2021-07-04 12:05:22* Test Item Value Reference Range Interpretation Comme nts POCT GLU (test code = 8271784721) 124 mg/dL 70-110 H Lab Interpretation (test cod e = 63352-1) Abnormal [facility] GLUCOSE (AUTOMATED)2021-07-04 12:04:47* Test Item Value Reference Range Interpretation Comme nts POCT GLU (test code = 5265915488) 194 mg/dL 70-110 H Lab Interpretation (test cod e = 06712-0) Abnormal [facility] GLUCOSE (AUTOMATED)2021-07-04 12:04:47* Test Item Value Reference Range Interpretation Comme nts POCT GLU (test code = 3619769640) 194 mg/dL 70-110 H Lab Interpretation (test cod e = 21235-7) Abnormal [facility] GLUCOSE (AUTOMATED)2021-07-04 12:04:47* Test Item Value Reference Range Interpretation Comme nts POCT GLU (test code = 2619144856) 194 mg/dL 70-110 H Lab Interpretation (test cod e = 59089-6) Abnormal [facility] GLUCOSE (AUTOMATED)2021-07-04 12:04:19* Test Item Value Reference Range Interpretation Comme nts POCT GLU (test code = 5275746573) 271 mg/dL 70-110 H Lab Interpretation (test cod e = 24130-0) Abnormal [facility] GLUCOSE (AUTOMATED)2021-07-04 12:04:19* Test Item Value Reference Range Interpretation Comme nts POCT GLU (test code = 8226645103) 271 mg/dL 70-110 H Lab Interpretation (test cod e = 33380-9) Abnormal [facility] GLUCOSE (AUTOMATED)2021-07-04 12:04:19* Test Item Value Reference Range Interpretation Comme nts POCT GLU (test code = 6127523918) 271 mg/dL 70-110 H Lab Interpretation (test cod e = 62295-9) [facility]normal [facility]IT[facility] B12, [id number] 20:51:33* Test Item Value Reference Range Interpretation Comme nts VIT B12 (test code = 5033581535) 768 pg/mL 240-930 BRYSON (test code = BRYSON) Biotin has been reported to cause a positive bias, interpret results relative to patient's use of biotin. Lab Interpretation (test code = 52798-2) [facility] B12, [id number] 20:51:33* Test Item Value Reference Range Interpretation Comme nts VIT B12 (test code = 8397013133) 768 pg/mL 240-930 BRYSON (test code = BRYSON) Biotin has been reported to cause a positive bias, interpret results relative to patient's use of biotin. Lab Interpretation (test code = 48221-1) [facility] B12, [id number] 20:51:33* Test Item Value Reference Range Interpretation Comme nts VIT B12 (test code = 5488552944) 768 pg/mL 240-930 BRYSON (test code = BRYSON) Biotin has been reported to cause a positive bias, interpret results relative to patient's use of biotin. Lab Interpretation (test code = 59351-3) Normal [facility] RockPROCALCITONIN2021-09-26 20:34:29* Test Item Value Reference Range Interpretation Comme nts Procalcitonin (test code = 8363599526) 0.09 ng/mL <0.07 H BRYSON (test code [...] lung abscess/empyema. For further information please refer to:[email or web address] Lab Interpretation (test code = 18549-0) [facility]normal [facility]AL[facility]ONIN2021-09-26 20:34:29* Test Item Value Reference Range Interpretation Comme nts Procalcitonin (test code = 1481241868) 0.09 ng/mL <0.07 H BRYSON (test code [...] lung abscess/empyema. For further information please refer to:[email or web address] Lab Interpretation (test code = 14992-3) Abnormal [facility] RockPROCALCITONIN2021-09-26 20:34:29* Test Item Value Reference Range Interpretation Comme nts Procalcitonin (test code = 1503460076) 0.09 ng/mL <0.07 H BRYSON (test code [...] lung abscess/empyema. For further information please refer to:[email or web address] Lab Interpretation (test code = 89679-3) Abnormal [facility] [id number] 17:16:42* Test Item Value Reference Range Interpretation Comme nts IRON (test code = 0069901191) 31 ug/dL 50-160 L TIBC (test code = 3482108625) 211 ug/dL 250-410 L % FE SAT (test code = 0964151599) 15 % 20-50 L Lab Interpretation (test cod e = 96658-7) Abnormal [facility] [id number] 17:16:42* Test Item Value Reference Range Interpretation Comme nts IRON (test code = 4641616786) 31 ug/dL 50-160 L TIBC (test code = 6838711184) 211 ug/dL 250-410 L % FE SAT (test code = 4668037235) 15 % 20-50 L Lab Interpretation (test cod e = 85342-2) Abnormal [facility] [id number] 17:16:42* Test Item Value Reference Range Interpretation Comme nts IRON (test code = 3963542225) 31 ug/dL 50-160 L TIBC (test code = 4797428732) 211 ug/dL 250-410 L % FE SAT (test code = 3955703580) 15 % 20-50 L Lab Interpretation (test cod e = 37875-7) Abnormal [facility] RockPROTHROMBIN TIME / [id number] 15:25:33* Test Item Value Reference Range Interpretation Comme nts PROTIME PATIENT (test code = 5964-2) See_Comment [Automated [employer]] The system which generated this result transmitted reference range: 12.0 - 14.7 Seconds. The reference range was not used to interpret this result as normal/abnormal. INR (test code = 6301-6) Normal INR <1.1; Warfarin Therapeutic range 2.0 to 3.0 or 2.5 to 3.5, depending upon the indications. Lab Interpretation (test code = 02935-6) Normal [facility] RockPROTHROMBIN TIME / [id number] 15:25:33* Test Item Value Reference Range Interpretation Comme nts PROTIME PATIENT (test code = 5964-2) See_Comment [Automated [employer]] The system which generated this result transmitted reference range: 12.0 - 14.7 Seconds. The reference range was not used to interpret this result as normal/abnormal. INR (test code = 6301-6) Normal INR <1.1; Warfarin Therapeutic range 2.0 to 3.0 or 2.5 to 3.5, depending upon the indications. Lab Interpretation (test code = 23059-4) Normal [facility] RockPROTHROMBIN TIME / [id number] 15:25:33* Test Item Value Reference Range Interpretation Comme nts PROTIME PATIENT (test code = 5964-2) See_Comment [Automated [employer]] The system which generated this result transmitted reference range: 12.0 - 14.7 Seconds. The reference range was not used to interpret this result as normal/abnormal. INR (test code = 6301-6) Normal INR <1.1; Warfarin Therapeutic range 2.0 to 3.0 or 2.5 to 3.5, depending upon the indications. Lab Interpretation (test code = 72675-8) [facility] [id number] 10:28:31* Test Item Value Reference Range Interpretation Comme nts ESR (test code = 3453296365) See_Comment H [Automated [employer]] The system which generated this result transmitted reference range: 0 - 10 mm/HR. The reference range was not used to interpret this result as normal/abnormal. Lab Interpretation (test code = 26432-9) [facility]normal [facility] [id number] 10:28:31* Test Item Value Reference Range Interpretation Comme nts ESR (test code = 2116867395) See_Comment H [Automated messa ge] The system which generated this result transmitted reference range: 0 - 10 mm/HR. The reference range was not used to interpret this result as normal/abnormal. Lab Interpretation (test code = 45874-7) Abnormal [facility] [id number] 10:28:31* Test Item Value Reference Range Interpretation Comme nts ESR (test code = 0762408244) See_Comment H [Automated messa ge] The system which generated this result transmitted reference range: 0 - 10 mm/HR. The reference range was not used to interpret this result as normal/abnormal. Lab Interpretation (test code = 43755-4) Abnormal [facility] RockFERRISELECT [facility] [place] [id number] 09:49:36* Test Item Value Reference Range Interpretation Comme nts FERRITIN (test code = 9682434784) 119.0 ng/mL 18.0-464.0 BRYSON (test code = BRYSON) Biotin has been reported to cause a negative bias, interpret results relative to patient's use of biotin. Lab Interpretation (test code = 67090-7) Normal [facility] [id number] 09:49:36* Test Item Value Reference Range Interpretation Comme nts FERRITIN (test code = 7838485485) 119.0 ng/mL 18.0-464.0 BRYSON (test code = BRYSON) Biotin has been reported to cause a negative bias, interpret results relative to patient's use of biotin. Lab Interpretation (test code = 46452-4) Normal [facility] [id number] 09:49:36* Test Item Value Reference Range Interpretation Comme nts FERRITIN (test code = 7888651288) 119.0 ng/mL 18.0-464.0 BRYSON (test code = BRYSON) Biotin has been reported to cause a negative bias, interpret results relative to patient's use of biotin. Lab Interpretation (test code = 39380-0) Normal [facility] RockTHYROID STIMULATING [id number] 09:45:35 * Test Item Value Reference Range Interpretation Comme nts TSH (test code = 4095064211) See_Comment [Automated messa ge] The system which generated this result transmitted reference range: 0.45 - 4.70 mIU/L. The reference range was not used to interpret this result as normal/abnormal. Lab Interpretation (test code = 16020-9) Normal [facility] RockTHYROID STIMULATING [id number] 09:45:35 * Test Item Value Reference Range Interpretation Comme nts TSH (test code = 8258315957) See_Comment [Automated messa ge] The system which generated this result transmitted reference range: 0.45 - 4.70 mIU/L. The reference range was not used to interpret this result as normal/abnormal. Lab Interpretation (test code = 54825-1) Normal [facility] STIMULATING [id number] 09:45:35 * Test Item Value Reference Range Interpretation Comme nts TSH (test code = 9210213732) See_Comment [Automated messa ge] The system which generated this result transmitted reference range: 0.45 - 4.70 mIU/L. The reference range was not used to interpret this result as normal/abnormal. Lab Interpretation (test code = 20862-3) Normal [facility]-TERMINAL [id number] 09:24:29* Test Item Value Reference Range Interpretation Comme nts NT-proBNP (test code = 1454255178) 260 pg/mL See_Comment H [Automated message] The system which generated this result transmitted reference range: <=125. The reference range was not used to interpret this result as normal/abnormal. BRYSON (test code = BRYSON) Biotin has been reported to cause a negative bias, interpret results relative to patient's use of biotin. Lab Interpretation (test code = 30445-2) Abnormal [facility]-TERMINAL [id number] 09:24:29* Test Item Value Reference Range Interpretation Comme nts NT-proBNP (test code = 5599009701) 260 pg/mL See_Comment H [Automated message] The system which generated this result transmitted reference range: <=125. The reference range was not used to interpret this result as normal/abnormal. BRYSON (test code = BRYSON) Biotin has been reported to cause a negative bias, interpret results relative to patient's use of biotin. Lab Interpretation (test code = 29967-7) Abnormal [facility]-TERMINAL [id number] 09:24:29* Test Item Value Reference Range Interpretation Comme nts NT-proBNP (test code = 2576961531) 260 pg/mL See_Comment H [Automated message] The system which generated this result transmitted reference range: <=125. The reference range was not used to interpret this result as normal/abnormal. BRYSON (test code = BRYSON) Biotin has been reported to cause a negative bias, interpret results relative to patient's use of biotin. Lab Interpretation (test code = 94000-1) [facility] Test Item Value Reference Range Interpretation Comme nts MAGNESIUM (test code = 3216802322) 1.6 mg/dL 1.7-2.4 L Lab Interpretation (test cod e = 26149-4) [facility]78163)(TOTAL CHOLESTEROL, TRIGLYCERIDES, HDL)2021-07-03 09:14:31* Test Item Value Reference Range Interpretation Comme nts CHOL (test code = 0605525899) 215 mg/dL 120-200 H HDL (test code = 9333336609) 41 mg/dL >40 HDLC RATIO (test code = 1933622299) See_Comment H [Automated [employer]] The system which generated this result transmitted reference range: <=5.0. The reference range was not used to interpret this result as normal/abnormal. TRIG (test code = 0806386272) 185 mg/dL 30-170 H LDL CHOL (test code = 82294-8) 137 mg/dL See_Comment [Automated [employer]] The system which generated this result transmitted reference range: <=160. The reference range was not used to interpret this result as normal/abnormal. VLDL (test code = 0277002712) 37 mg/dL 5-60 Lab Interpretation (test code = 44594-0) [facility] Test Item Value Reference Range Interpretation Comme nts MAGNESIUM (test code = 9186957985) 1.6 mg/dL 1.7-2.4 L Lab Interpretation (test cod e = 33106-0) [facility] (72431)(TOTAL CHOLESTEROL, TRIGLYCERIDES, HDL)2021-07-03 09:14:31* Test Item Value Reference Range Interpretation Comme nts CHOL (test code = 2466777877) 215 mg/dL 120-200 H HDL (test code = 7373118066) 41 mg/dL >40 HDLC RATIO (test code = 5665719204) See_Comment H [Automated messa ge] The system which generated this result transmitted reference range: <=5.0. The reference range was not used to interpret this result as normal/abnormal. TRIG (test code = 5827342258) 185 mg/dL 30-170 H LDL CHOL (test code = 26945-3) 137 mg/dL See_Comment [Automated messa ge] The system which generated this result transmitted reference range: <=160. The reference range was not used to interpret this result as normal/abnormal. VLDL (test code = 2726572507) 37 mg/dL 5-60 Lab Interpretation (test code = 83395-4) [facility] 09:14:31* Test Item Value Reference Range Interpretation Comme nts MAGNESIUM (test code = 5852410856) 1.6 mg/dL 1.7-2.4 L Lab Interpretation (test cod e = 09346-8) [facility] (02215)(TOTAL CHOLESTEROL, TRIGLYCERIDES, HDL)2021-07-03 09:14:31* Test Item Value Reference Range Interpretation Comme nts CHOL (test code = 9562551780) 215 mg/dL 120-200 H HDL (test code = 5232461359) 41 mg/dL >40 HDLC RATIO (test code = 6528840537) See_Comment H [Automated messa ge] The system which generated this result transmitted reference range: <=5.0. The reference range was not used to interpret this result as normal/abnormal. TRIG (test code = 6754763419) 185 mg/dL 30-170 H LDL CHOL (test code = 62784-4) 137 mg/dL See_Comment [Automated messa ge] The system which generated this result transmitted reference range: <=160. The reference range was not used to interpret this result as normal/abnormal. VLDL (test code = 3085920287) 37 mg/dL 5-60 Lab Interpretation (test code = 87669-2) [facility]2021[facility] 09:14:11* Test Item Value Reference Range Interpretation Comme nts PHOSPHORUS (test code = 1281942309) 3.6 mg/dL 2.5-5.0 Lab Interpretation (test cod e = 89300-3) [facility]2021-[facility]-26 09:14:11* Test Item Value Reference Range Interpretation Comme nts PHOSPHORUS (test code = 4610106494) 3.6 mg/dL 2.5-5.0 Lab Interpretation (test cod e = 57320-9) [facility]2021-[facility]-26 09:14:11* Test Item Value Reference Range Interpretation Comme nts PHOSPHORUS (test code = 6648195139) 3.6 mg/dL 2.5-5.0 Lab Interpretation (test cod e = 74096-0) [facility] RockURIC [id number] 09:13:51* Test Item Value Reference Range Interpretation Comme nts URIC ACID (test code = 9088902300) 4.4 mg/dL 3.6-8.0 Lab Interpretation (test cod e = 59239-2) [facility] RockUR[facility] [id number] 09:13:51* Test Item Value Reference Range Interpretation Comme nts URIC ACID (test code = 7596052268) 4.4 mg/dL 3.6-8.0 Lab Interpretation (test cod e = 47552-3) Normal [facility] RockUR[facility] [id number] 09:13:51* Test Item Value Reference Range Interpretation Comme nts URIC ACID (test code = 2893630142) 4.4 mg/dL 3.6-8.0 Lab Interpretation (test cod e = 84552-6) Normal [facility] RockCREATINE [id number] 09:13:50* Test Item Value Reference Range Interpretation Comme nts CK (test code = 0640867089) 122 U/L 33-194 Lab Interpretation (test cod e = 29276-6) Normal [facility] RockCREATINE [id number] 09:13:50* Test Item Value Reference Range Interpretation Comme nts CK (test code = 7248093455) 122 U/L 33-194 Lab Interpretation (test cod e = 04309-4) Normal [facility] RockCREATINE [id number] 09:13:50* Test Item Value Reference Range Interpretation Comme nts CK (test code = 6177823324) 122 U/L 33-194 Lab Interpretation (test cod e = 47927-5) Normal [facility] RockGLYCOSYLATED HEMOGLOBIN (A1C)2021-07-03 08:59:52* Test Item Value Reference Range Interpretation Comme nts HGB A1C (test code = 4548-4) 12.9 % 4.0-5.7 H BRYSON (test code = BRYSON) Reference RangesNormal: <5.7%Prediabetes: 5.7 - 6.4%Diabetes: > 6.5% Lab Interpretation (test code = 39729-4) [facility]normal [facility] RockGLYCOSYLATED HEMOGLOBIN (A1C)2021-07-03 08:59:52* Test Item Value Reference Range Interpretation Comme nts HGB A1C (test code = 4548-4) 12.9 % 4.0-5.7 H BRYSON (test code = BRYSON) Reference RangesNormal: <5.7%Prediabetes: 5.7 - 6.4%Diabetes: > 6.5% Lab Interpretation (test code = 57402-1) [facility]normal [facility] RockGLYCOSYLATED HEMOGLOBIN (A1C)2021-07-03 08:59:52* Test Item Value Reference Range Interpretation Comme nts HGB A1C (test code = 4548-4) 12.9 % 4.0-5.7 H BRYSON (test code = BRYSON) Reference RangesNormal: <5.7%Prediabetes: 5.7 - 6.4%Diabetes: > 6.5% Lab Interpretation (test code = 33507-6) [facility]normal [facility] RockTroponin [id number] 06:38:04* Test Item Value Reference Range Interpretation Comments TROPONIN I (test code = 8868600233) 0.014 ng/mL See_Comment [Automated message] The system [...] of biotin. Lab Interpretation (test code = 04086-9) Normal [facility] [id number] 06:38:04* Test Item Value Reference Range Interpretation Comments TROPONIN I (test code = 4296046297) 0.014 ng/mL See_Comment [Automated message] The system [...] of biotin. Lab Interpretation (test code = 74310-5) Normal [facility] [id number] 06:38:04* Test Item Value Reference Range Interpretation Comments TROPONIN I (test code = 7397100483) 0.014 ng/mL See_Comment [Automated message] The system [...] of biotin. Lab Interpretation (test code = 83553-2) Normal [facility].. Metabolic Panel (54084)2021-07-03 06:26:45* Test Item Value Reference Range Interpretation Comme nts NA (test code = 4344386593) 131 mmol/L 135-145 L K (test code = 4214787919) 4.1 mmol/L 3.5-5.0 CL (test code = 6655524462) 101 mmol/L 98-108 CO2 TOTAL (test code = 1810862887) 23 mmol/L 23-31 AGAP (test code = 5257926205) 2-16 BUN (test code = 5577336488) 20 mg/dL 7-23 GLUCOSE (test code = 9729405446) 403 mg/dL 70-110 H CREATININE (test code = 2675377734) 1.06 mg/dL 0.60-1.25 TOTAL BILI (test code = 5702218044) 0.4 mg/dL 0.1-1.1 CALCIUM (test code = 9013867839) 9.3 mg/dL 8.6-10.6 T PROTEIN (test code = 0326248104) 7.5 g/dL 6.3-8.2 ALBUMIN (test code = 8127604224) 3.9 g/dL 3.5-5.0 ALK PHOS (test code = 8835435079) 122 U/L 34-122 ALTv (test code = 1742-6) 16 U/L 5-50 AST(SGOT) (test code = 4006149521) 18 U/L 13-40 eGFR (test code = 6666505559) mL/min/1.73m2 BRYSON (test code = BRYSON) Association [...] imaging tests). Lab Interpretation (test code = 37536-5) [facility]normal [facility] Rock[facility].. Metabolic Panel (40218)2021-07-03 06:26:45* Test Item Value Reference Range Interpretation Comme nts NA (test code = 1429317317) 131 mmol/L 135-145 L K (test code = 1031812050) 4.1 mmol/L 3.5-5.0 CL (test code = 6238287182) 101 mmol/L 98-108 CO2 TOTAL (test code = 5001568662) 23 mmol/L 23-31 AGAP (test code = 7615900427) 2-16 BUN (test code = 9694545154) 20 mg/dL 7-23 GLUCOSE (test code = 2083272667) 403 mg/dL 70-110 H CREATININE (test code = 0773682480) 1.06 mg/dL 0.60-1.25 TOTAL BILI (test code = 4275392801) 0.4 mg/dL 0.1-1.1 CALCIUM (test code = 9621280100) 9.3 mg/dL 8.6-10.6 T PROTEIN (test code = 5722602539) 7.5 g/dL 6.3-8.2 ALBUMIN (test code = 9657328227) 3.9 g/dL 3.5-5.0 ALK PHOS (test code = 9644523756) 122 U/L 34-122 ALTv (test code = 1742-6) 16 U/L 5-50 AST(SGOT) (test code = 5666599487) 18 U/L 13-40 eGFR (test code = 0431439816) mL/min/1.73m2 BRYSON (test code = BRYSON) Association [...] imaging tests). Lab Interpretation (test code = 07679-9) Abnormal [facility].. Metabolic Panel (41866)2021-07-03 06:26:45* Test Item Value Reference Range Interpretation Comme nts NA (test code = 2285934481) 131 mmol/L 135-145 L K (test code = 8532974642) 4.1 mmol/L 3.5-5.0 CL (test code = 8396712600) 101 mmol/L 98-108 CO2 TOTAL (test code = 5904620203) 23 mmol/L 23-31 AGAP (test code = 5739956057) 2-16 BUN (test code = 9025298265) 20 mg/dL 7-23 GLUCOSE (test code = 1851728341) 403 mg/dL 70-110 H CREATININE (test code = 6020175805) 1.06 mg/dL 0.60-1.25 TOTAL BILI (test code = 6763812871) 0.4 mg/dL 0.1-1.1 CALCIUM (test code = 0290278185) 9.3 mg/dL 8.6-10.6 T PROTEIN (test code = 3213175377) 7.5 g/dL 6.3-8.2 ALBUMIN (test code = 7068722375) 3.9 g/dL 3.5-5.0 ALK PHOS (test code = 7482127722) 122 U/L 34-122 ALTv (test code = 1742-6) 16 U/L 5-50 AST(SGOT) (test code = 2954539105) 18 U/L 13-40 eGFR (test code = 0289894892) mL/min/1.73m2 BRYSON (test code = BRYSON) Association [...] imaging tests). Lab Interpretation (test code = 59523-2) Abnormal [facility] [id number] 06:17:42* Test Item Value Reference Range Interpretation Comme nts WBC (test code = 6690-2) See_Comment H [Automated [employer]] The system which generated this result transmitted reference range: 4.20 - 10.70 10*3/?L. The reference range was not used to interpret this result as normal/abnormal. RBC (test code = 789-8) See_Comment L [Automated [employer]] The system which generated this result transmitted [...] 34.7 g/dL 31.2-35.0 RDW-SD (test code = 48257-1) 40.6 fL 38.5-51.6 RDW-CV (test code = 788-0) 12.2 % 12.1-15.4 PLT (test code = 777-3) See_Comment [Automated [employer]] The system which generated this result transmitted reference range: 150 - 328 10*3/?L. The reference range was not used to interpret this result as normal/abnormal. MPV (test code = 02716-3) 13.0 fL 9.8-13.0 NRBC/100 WBC (test code = 4779254145) See_Comment [Automated me ssage] The system which generated this result transmitted reference range: 0.0 - 10.0 /100 WBCs. The reference range was not used to interpret this result as normal/abnormal. NRBC x10^3 (test code = 6782716360) <0.01 See_Comment [Automated messa ge] The system which generated this result transmitted reference range: 10*3/?L. The reference range was not used to interpret this result as normal/abnormal. GRAN MAT (NEUT) % (test code = 770-8) 77.9 % IMM GRAN % (test code = 7785777790) 0.50 % LYMPH % (test code = 736-9) 11.6 % MONO % (test code = 5905-5) 9.2 % EOS % (test code = 713-8) 0.5 % BASO % (test code = 706-2) 0.3 % GRAN MAT x10^3(ANC) (test code = 9754377932) 9.93 10*3/uL 1.99-6.95 H IMM GRAN x10^3 (test code = 7748575814) 0.07 10*3/uL 0.00-0.06 H LYMPH x10^3 (test code = 731-0) 1.48 10*3/uL 1.09-3.23 MONO x10^3 (test code = 742-7) 1.18 10*3/uL 0.36-1.02 H EOS x10^3 (test code = 711-2) 0.06 10*3/uL 0.06-0.53 BASO x10^3 (test code = 704-7) 0.04 10*3/uL 0.01-0.09 Lab Interpretation (test code = 15502-1) Abnormal [facility] [id number] 06:17:42* Test Item Value Reference Range Interpretation [...] 34.7 g/dL 31.2-35.0 RDW-SD (test code = 96354-5) 40.6 fL 38.5-51.6 RDW-CV (test code = 788-0) 12.2 % 12.1-15.4 PLT (test code = 777-3) See_Comment [Automated messa ge] The system which generated this result transmitted reference range: 150 - 328 10*3/?L. The reference range was not used to interpret this result as normal/abnormal. MPV (test code = 57118-9) 13.0 fL 9.8-13.0 NRBC/100 WBC (test code = 9542918631) See_Comment [Automated [employer]] The system which generated this result transmitted reference range: 0.0 - 10.0 /100 WBCs. The reference range was not used to interpret this result as normal/abnormal. NRBC x10^3 (test code = 3497423984) <0.01 See_Comment [Automated messa ge] The system which generated this result transmitted reference range: 10*3/?L. The reference range was not used to interpret this result as normal/abnormal. GRAN MAT (NEUT) % (test code = 770-8) 77.9 % IMM GRAN % (test code = 3131692586) 0.50 % LYMPH % (test code = 736-9) 11.6 % MONO % (test code = 5905-5) 9.2 % EOS % (test code = 713-8) 0.5 % BASO % (test code = 706-2) 0.3 % GRAN MAT x10^3(ANC) (test code = 0961418333) 9.93 10*3/uL 1.99-6.95 H IMM GRAN x10^3 (test code = 7424440881) 0.07 10*3/uL 0.00-0.06 H LYMPH x10^3 (test code = 731-0) 1.48 10*3/uL 1.09-3.23 MONO x10^3 (test code = 742-7) 1.18 10*3/uL 0.36-1.02 H EOS x10^3 (test code = 711-2) 0.06 10*3/uL 0.06-0.53 BASO x10^3 (test code = 704-7) 0.04 10*3/uL 0.01-0.09 Lab Interpretation (test code = 79671-6) Abnormal [facility] [id number] 06:17:42* Test Item Value Reference Range Interpretation [...] 34.7 g/dL 31.2-35.0 RDW-SD (test code = 56426-2) 40.6 fL 38.5-51.6 RDW-CV (test code = 788-0) 12.2 % 12.1-15.4 PLT (test code = 777-3) See_Comment [Automated messa ge] The system which generated this result transmitted reference range: 150 - 328 10*3/?L. The reference range was not used to interpret this result as normal/abnormal. MPV (test code = 90100-0) 13.0 fL 9.8-13.0 NRBC/100 WBC (test code = 8792803054) See_Comment [Automated [employer]] The system which generated this result transmitted reference range: 0.0 - 10.0 /100 WBCs. The reference range was not used to interpret this result as normal/abnormal. NRBC x10^3 (test code = 6993522494) <0.01 See_Comment [Automated messa ge] The system which generated this result transmitted reference range: 10*3/?L. The reference range was not used to interpret this result as normal/abnormal. GRAN MAT (NEUT) % (test code = 770-8) 77.9 % IMM GRAN % (test code = 1552451702) 0.50 % LYMPH % (test code = 736-9) 11.6 % MONO % (test code = 5905-5) 9.2 % EOS % (test code = 713-8) 0.5 % BASO % (test code = 706-2) 0.3 % GRAN MAT x10^3(ANC) (test code = 9336240833) 9.93 10*3/uL 1.99-6.95 H IMM GRAN x10^3 (test code = 9128311425) 0.07 10*3/uL 0.00-0.06 H LYMPH x10^3 (test code = 731-0) 1.48 10*3/uL 1.09-3.23 MONO x10^3 (test code = 742-7) 1.18 10*3/uL 0.36-1.02 H EOS x10^3 (test code = 711-2) 0.06 10*3/uL 0.06-0.53 BASO x10^3 (test code = 704-7) 0.04 10*3/uL 0.01-0.09 Lab Interpretation (test code = 09126-1) [facility] [id number] 00:00:00* Test Item Value Reference Range Interpretation Comme nts CHOLESTEROL (test code = 2210) 224 MG/DL TRIGLYCERIDES (test code = 2232) 167 MG/DL HDL CHOLESTEROL (test code = 2220) 53 MG/DL CALC LDL CHOL (test code = 2237) 138 MG/DL RISK RATIO LDL/HDL (test cod e = 2238) 2.60 RATIO MICROALBUMIN/CREATININE, RANDOM AND [id number] 00:00:00* Test Item Value Reference Range Interpretation Comme nts CREATININE, URINE, CONC. (te st code = 2072) 36.2 MG/DL MICROALBUMIN, RANDOM (test c ode = 25595) 8.1 MG/DL CALC MICROALB/CREAT RND (sruthi t code = 62837) 224 MG/G HEMOGLOBIN [id number] 00:00:00* Test Item Value Reference Range Interpretation Comme nts HEMOGLOBIN A1c (test code = 97151) 11.6 % COMPREHENSIVE METABOLIC [id number] 00:00:00* Test Item Value Reference Range Interpretation Comme nts GLUCOSE (test code = 2217) 267 MG/DL BUN (test code = 2208) 19 MG/DL CREATININE (test code = 2214) 0.73 MG/DL eGFR AMER. (test cod e = 12193) 124 ML/MIN/1.73 eGFR NON- AMER. (test code = 80819) 107 ML/MIN/1.73 CALC BUN/CREAT (test code = [...] (test code = 2219) 22 U/L LIPID [id number] 00:00:00* Test Item Value Reference Range Interpretation Comme nts CHOLESTEROL (test code = 2210) 224 MG/DL TRIGLYCERIDES (test code = 2232) 167 MG/DL HDL CHOLESTEROL (test code = 2220) 53 MG/DL CALC LDL CHOL (test code = 2237) 138 MG/DL RISK RATIO LDL/HDL (test cod e = 2238) 2.60 RATIO MICROALBUMIN/CREATININE, RANDOM AND [id number] 00:00:00* Test Item Value Reference Range Interpretation Comme nts CREATININE, URINE, CONC. (te st code = 2072) 36.2 MG/DL MICROALBUMIN, RANDOM (test c ode = 91676) 8.1 MG/DL CALC MICROALB/CREAT RND (sruthi t code = 78606) 224 MG/G HEMOGLOBIN [id number] 00:00:00* Test Item Value Reference Range Interpretation Comme nts HEMOGLOBIN A1c (test code = 18863) 11.6 % COMPREHENSIVE METABOLIC [id number] 00:00:00* Test Item Value Reference Range Interpretation Comme nts GLUCOSE (test code = 2217) 267 MG/DL BUN (test code = 2208) 19 MG/DL CREATININE (test code = 2214) 0.73 MG/DL eGFR AMER. (test cod e = 74179) 124 ML/MIN/1.73 eGFR NON- AMER. (test code = 81738) 107 ML/MIN/1.73 CALC BUN/CREAT (test code = [...] = 2219) 22 U/L MICROALBUMIN/CREATININE, RANDOM AND [id number] 00:00:00* Test Item Value Reference Range Interpretation Comme nts CREATININE, URINE, CONC. (te st code = 2071) 84.2 MG/DL MICROALBUMIN, RANDOM (test c ode = 63605) 7.6 MG/DL CALC MICROALB/CREAT RND (sruthi t code = 66489) 90 MG/G MICROALBUMIN/CREATININE, RANDOM AND [id number] 00:00:00* Test Item Value Reference Range Interpretation Comme nts CREATININE, URINE, CONC. (te st code = 2071) 84.2 MG/DL MICROALBUMIN, RANDOM (test c ode = 40479) 7.6 MG/DL CALC MICROALB/CREAT RND (sruthi t code = 26486) 90 MG/G LIPID [id number] 00:00:00* Test Item Value Reference Range Interpretation Comme nts CHOLESTEROL (test code = 2210) 181 MG/DL TRIGLYCERIDES (test code = 2232) 228 MG/DL HDL CHOLESTEROL (test code = 2220) 49 MG/DL CALC LDL CHOL (test code = 2237) 86 MG/DL RISK RATIO LDL/HDL (test cod e = 2238) 1.76 RATIO COMPREHENSIVE METABOLIC [id number] 00:00:00* Test Item Value Reference Range Interpretation Comme nts GLUCOSE (test code = 2217) 276 MG/DL BUN (test code = 2208) 20 MG/DL CREATININE (test code = 2214) 0.95 MG/DL eGFR AMER. (test cod e = 83365) 107 ML/MIN/1.73 eGFR NON- AMER. (test code = 56098) 92 ML/MIN/1.73 CALC BUN/CREAT (test code = [...] (test code = 2219) 27 U/L LIPID [id number] 00:00:00* Test Item Value Reference Range Interpretation Comme nts CHOLESTEROL (test code = 2210) 181 MG/DL TRIGLYCERIDES (test code = 2232) 228 MG/DL HDL CHOLESTEROL (test code = 2220) 49 MG/DL CALC LDL CHOL (test code = 2237) 86 MG/DL RISK RATIO LDL/HDL (test cod e = 2238) 1.76 RATIO COMPREHENSIVE METABOLIC [id number] 00:00:00* Test Item Value Reference Range Interpretation Comme nts GLUCOSE (test code = 2217) 276 MG/DL BUN (test code = 2208) 20 MG/DL CREATININE (test code = 2214) 0.95 MG/DL eGFR AMER. (test cod e = 35612) 107 ML/MIN/1.73 eGFR NON- AMER. (test code = 61700) 92 ML/MIN/1.73 CALC BUN/CREAT (test code = [...] (test code = 2219) 27 U/L HEMOGLOBIN [id number] 00:00:00* Test Item Value Reference Range Interpretation Comme nts HEMOGLOBIN A1c (test code = 27388) 9.4 % HEMOGLOBIN [id number] 00:00:00* Test Item Value Reference Range Interpretation Comme nts HEMOGLOBIN A1c (test code = 13568) 9.4 % [id number] 00:00:00* Test Item Value Reference Range Interpretation Comme nts TSH (test code = 2821) 2.44 UIU/ML LIPID [id number] 00:00:00* Test Item Value Reference Range Interpretation Comme nts CHOLESTEROL (test code = 2210) 253 MG/DL TRIGLYCERIDES (test code = 2232) 162 MG/DL HDL CHOLESTEROL (test code = 2220) 40 MG/DL CALC LDL CHOL (test code = 2237) 181 MG/DL RISK RATIO LDL/HDL (test cod e = 2238) 4.52 RATIO COMPREHENSIVE METABOLIC [id number] 00:00:00* Test Item Value Reference Range Interpretation Comme nts GLUCOSE (test code = 2217) 361 MG/DL BUN (test code = 2208) 19 MG/DL CREATININE (test code = 2214) 0.82 MG/DL eGFR AMER. (test cod e = 51453) 119 ML/MIN/1.73 eGFR NON- AMER. (test code = 45872) 102 ML/MIN/1.73 CALC BUN/CREAT (test code = [...] (test code = 2219) 32 U/L PSA, [id number] 00:00:00* Test Item Value Reference Range Interpretation Comme nts PSA, TOTAL (test code = 2606) 0.36 NG/ML MICROALBUMIN/CREATININE, RANDOM AND [id number] 00:00:00* Test Item Value Reference Range Interpretation Comme nts CREATININE, URINE, CONC. (te st code = 2072) 108.1 MG/DL MICROALBUMIN, RANDOM (test c ode = 67013) 36.3 MG/DL CALC MICROALB/CREAT RND (sruthi t code = 26053) 336 MG/G CBC W/AUTO [id number] 00:00:00* Test Item Value Reference Range Interpretation [...] (test code = 1015) 210 K/UL HEMOGLOBIN [id number] 00:00:00* Test Item Value Reference Range Interpretation Comme nts HEMOGLOBIN A1c (test code = 73747) 13.3 % [id number] 00:00:00* Test Item Value Reference Range Interpretation Comme nts TSH (test code = 2821) 2.44 UIU/ML LIPID [id number] 00:00:00* Test Item Value Reference Range Interpretation Comme nts CHOLESTEROL (test code = 2210) 253 MG/DL TRIGLYCERIDES (test code = 2232) 162 MG/DL HDL CHOLESTEROL (test code = 2220) 40 MG/DL CALC LDL CHOL (test code = 2237) 181 MG/DL RISK RATIO LDL/HDL (test cod e = 2238) 4.52 RATIO COMPREHENSIVE METABOLIC [id number] 00:00:00* Test Item Value Reference Range Interpretation Comme nts GLUCOSE (test code = 2217) 361 MG/DL BUN (test code = 2208) 19 MG/DL CREATININE (test code = 2214) 0.82 MG/DL eGFR AMER. (test cod e = 08583) 119 ML/MIN/1.73 eGFR NON- AMER. (test code = 90726) 102 ML/MIN/1.73 CALC BUN/CREAT (test code = [...] (test code = 2219) 32 U/L PSA, [id number] 00:00:00* Test Item Value Reference Range Interpretation Comme nts PSA, TOTAL (test code = 2606) 0.36 NG/ML MICROALBUMIN/CREATININE, RANDOM AND [id number] 00:00:00* Test Item Value Reference Range Interpretation Comme nts CREATININE, URINE, CONC. (te st code = 2072) 108.1 MG/DL MICROALBUMIN, RANDOM (test c ode = 06793) 36.3 MG/DL CALC MICROALB/CREAT RND (sruthi t code = 37972) 336 MG/G CBC W/AUTO [id number] 00:00:00* Test Item Value Reference Range Interpretation [...] (test code = 1015) 210 K/UL HEMOGLOBIN [id number] 00:00:00* Test Item Value Reference Range Interpretation Comme nts HEMOGLOBIN A1c (test code = 85927) 13.3 %
[2024-10-20] MEDS ORDERED: TDAP (DIPHTH,PERTUSS(ACELL),TET VAC) 0.5 ML VIAL IMVAC ONE (06:35)
--- NOTE | 2024-10-20 07:20 | RAD REPORT ---
EXAM: CT brain without contrast HISTORY: Headache status post head injury. COMPARISON: None TECHNIQUE: Multiple contiguous axial images were obtained and a CT of the brain without contrast.. Sagittal and coronal reconstruction performed. Automated exposure control, adjustment of the mA and/or kV according to patient size, and/or iterative reconstruction. Unless otherwise specified, incidental f indings do not require dedicated imaging follow-up FINDINGS: An intracranial bleed is not seen Ventricles are normal caliber No extra-axial fluid collection noted No significant hypodensity within the brain No fluid within the visualized sinuses or mastoids noted. IMPRESSION: No acute intracranial abnormality noted. If the patient continues to have symptoms to suggest an acute intracranial abnormality then MRI of th e brain would be recommended.
--- NOTE | 2024-10-20 07:30 | RAD REPORT ---
Exam:Hand Left 2 View CLINICAL HISTORY: Left hand pain FINDINGS: A 3 mm bony density with a sclerotic border lies adjacent to the distal aspect of the fourth proximal phalanx. Most likely this is chronic. However, clinical correlation is needed to see if the patient has point tenderness in this region to suggest acuity. No dislocation noted. A limited two-view series was obtained
--- NOTE | 2024-10-20 07:36 | EDPHYS ---
Physician Documentation [facility] Name: Michelet Godinez Age: 59 yrs Sex: Male : 1965 Arrival Date: 10/20/2024 Time: 06:20 Bed 8 Private MD: ED Physician Leighton Corbin HPI: 10/20 06:29 This 59 yrs old Male presents to ER via Unassigned with complaints of Fall ec2 Injury, Head Injury Without LOC-Adult. 06:29 Patient arrives today after tripping and falling over a cable. Fell and hit his head ec2 and sustained some bleeding to the lower lip. No LOC, not on blood thinners. Complaining of head pain and left hand pain. Unsure of last tetanus. Historical: - Allergies: 06:40 No Known Allergies; al5 - Home Meds: 06:39 metformin 1 Oral tablet 1 tab 2 times per day with meals [Active]; losartan 100 mg Oral al5 tablet 1 tab daily [Active]; hydrochlorothiazide 25 mg Oral tablet 1 tabs daily [Active]; glipizide 10 mg Oral Tablet 1 tab 2 times per day [Active]; atorvastatin 20 mg Oral tablet 1 tab daily [Active]; amlodipine 10 mg tablet 1 tab daily [Active]; - PMHx: 06:39 diabetes mellitus; Hypercholesterolemia; Hypertensive disorder; al5 - PSHx: 06:39 toe amputation; al5 - Immunization history: Last tetanus immunization: unknown. - Infectious Disease History:: Denies. - Social history:: Smoking status: unknown. ROS: 06:29 Constitutional: as per hpi ec2 Exam: 06:29 Constitutional: GEN: NAD Head: atraumatic Eyes: EOMI Ears: External ears are ec2 normal. CV: regular rate LUNGS: no respiratory distress ABD: non-distended SKIN: Abrasion to the lower lip. MSK: no evidence of trauma. No C/T/L spine deformities. Bilateral upper extremities without deformities, left hand with TTP. Bilateral lower extremities without trauma. Neuro: Cranial nerves II through XII intact, strength intact all 4 extremities. Vital Signs: 06:37 BP 159 / 85; Pulse 68; Resp 18; Temp 97.9; Pulse Ox 100% on R/A; Weight 104.33 kg; al5 Height 5 ft. 8 in. ; Pain 3/10; 06:37 Body Mass Index 34.97 (104.33 kg, 172.72 cm) al5 06:37 Pain Scale: Adult al5 [place] Com[place] Score: 06:37 Eye Response: spontaneous(4). Motor Response: obeys commands(6). Verbal Response: al5 oriented(5). Total: 15. Trauma Score (Adult): 06:37 Eye Response: spontaneous(1); Verbal Response: oriented(1); Motor Response: obeys al5 commands(2); Systolic BP: > 89 mm Hg(4); Respiratory Rate: 10 to 29 per min(4); [place] Score: 15; Trauma Score: 12 MDM: 06:25 Medical Screening Exam initiated ec2 06:29 Data reviewed: vital signs, nurses notes. ED course: Patient arrives today for ec2 evaluation after fall. Will obtain CT scans of the head, hand x-ray as well. Differential includes processes such as concussion, intracranial brain bleed, hand fracture. Patient without prodromal symptoms to warrant obtaining lab work such as CBC or BMP, additionally will forego EKG. Will update his tetanus status as he sustained an abrasion to the hand as well.. 06:56 Transition of care: After a detail discussion of the patient's case, care is ec2 transferred to Leighton Corbin DO. ED course: Will sign patient out to the oncoming physician with pending imaging.. 07:15 Transition of care: Care assumed from Bharat Walters MD. ED course: Discussed case with ms3 Dr. Walters. Report and patient care received. Patient currently pending CT head and left hand x-ray.. 07:35 Differential diagnosis: closed head injury, contusion, fracture. I considered the ms3 following discharge prescriptions or medication management in the emergency department Medications were administered in the Emergency Department. See MAR. Care significantly affected by the following chronic conditions: Diabetes, Hypertension. Counseling: I had a detailed discussion with the patient and/or guardian regarding the historical points, exam findings, and any diagnostic results supporting the discharge/admit diagnosis, radiology results, the need for outpatient follow up, to return to the emergency department if symptoms worsen or persist or if there are any questions or concerns that arise at home. ED course: Discussed CT head and left hand x-ray with patient and his son. Patient's left hand without point tenderness over fourth metacarpal. Patient to follow-up with primary care physician as discussed. All questions were answered. Return precautions discussed include worsening symptoms, or any other concerns.. 10/20 06:25 Order name: CT Head Brain wo Cont; Complete Time: 07:32 ec2 10/20 06:29 Order name: Hand Left 2 View XRAY; Complete Time: 07:32 ec2 Administered Medications: 06:38 Drug: Boostrix Tdap IM 0.5 ml IM once; as a single dose Route: IM; Site: right deltoid; bm8 Disposition Summary: 10/20/24 07:35 Discharge Ordered Notes: Location: Home ms3 Condition: Stable ms3 Diagnosis - Head Injury ms3 - Abrasion of left hand ms3 - Essential (primary) hypertension ms3 Followup: ec2 - With: Private Physician - When: - Reason: Re-evaluation by your physician Discharge Instructions: - Hypertension, Adult ms3 - DASH Eating Plan ms3 - Discharge Summary Sheet ec2 - Concussion, Adult, [id number] ec2 Forms: - Medication Reconciliation Form ms3 - Antibiotic Education ms3 - Prescription Opioid Use ms3 - Patient Portal Instructions ms3 - Leadership Thank You Letter ms3 Signatures: Dispatcher [employer] EDLeighton Rowe DO DO ms3 Bharat Walters MD MD ec2 Reinaldo Hoffmann, RN RN bm8 Leanna Holden RN RN al5
--- NOTE | 2024-10-20 07:36 | ER ---
Nurse's Notes [facility] Name: Michelet Godinez Age: 59 yrs Sex: Male : 1965 Arrival Date: 10/20/2024 Time: 06:20 Bed 8 Private MD: Diagnosis: Head Injury;Abrasion of left hand;Essential (primary) hypertension Presentation: 10/20 06:33 Chief complaint: Patient's son or daughter states: patient was going out of his house, al5 tripped on a cable and hit his head and face. denies loc and blood thinners. Care prior to arrival: None. Mechanism of Injury: Fall. Trauma event details: Injury occurred in the [facility], Injury occurred: at home. Injury occurred: October 20, 2024. 06:33 Acuity: FERMIN 3 al5 06:33 Method Of Arrival: Wheelchair al5 06:39 Coronavirus screen: At this time, the client does not indicate any symptoms associated al5 with coronavirus-19. Ebola Screen: No symptoms or risks identified at this time. Initial Sepsis Screen: Does the patient meet any 2 criteria? No. Patient's initial sepsis screen is negative. Does the patient have a suspected source of infection? No. Patient's initial sepsis screen is negative. Risk Assessment: Do you want to hurt yourself or someone else? Patient reports no desire to harm self or others. Onset of symptoms was October 20, 2024. Triage Assessment: 06:39 General: see trauma assessment. al5 Trauma Activation: Physician: ED Physician; Name: ; Notified At: ; Arrived At: Physician: General Surgeon; Name: ; Notified At: ; Arrived At: Physician: Radiology; Name: ; Notified At: ; Arrived At: Physician: Respiratory; Name: ; Notified At: ; Arrived At: Physician: Lab; Name: ; Notified At: ; Arrived At: 06:33 n/a al5 Historical: - Allergies: 06:40 No Known Allergies; al5 - Home Meds: 06:39 metformin 1 Oral tablet 1 tab 2 times per day with meals [Active]; losartan 100 mg Oral al5 tablet 1 tab daily [Active]; hydrochlorothiazide 25 mg Oral tablet 1 tabs daily [Active]; glipizide 10 mg Oral Tablet 1 tab 2 times per day [Active]; atorvastatin 20 mg Oral tablet 1 tab daily [Active]; amlodipine 10 mg tablet 1 tab daily [Active]; - PMHx: 06:39 diabetes mellitus; Hypercholesterolemia; Hypertensive disorder; al5 - PSHx: 06:39 toe amputation; al5 - Immunization history: Last tetanus immunization: unknown. - Infectious Disease History:: Denies. - Social history:: Smoking status: unknown. Screenin:38 Abuse screen: Denies threats or abuse. Denies injuries from another. Nutritional al5 screening: No deficits noted. Tuberculosis screening: No symptoms or risk factors identified. 06:40 [facility] ED Fall Risk Assessment (Adult) History of falling in the last 3 months, al5 including since admission Yes- single mechanical fall (1 pt) Confusion or Disorientation No (0 pts) Intoxicated or Sedated No (0 pts) Impaired Gait Yes (1 pt) Mobility Assist Device Used Yes (1 pt) Altered Elimination No (0 pt) Score/Fall Risk Level 3 or more points = High Risk Oriented to surroundings, Maintained a safe environment, Hourly rounding (assess needs \T\ fall precautionary measures) done, Remained with patient while ambulating, Utilized family, sitter, or virtual tour production supervisor as indicated. Primary Survey: 06:37 NO uncontrolled hemorrhage observed. A: The client is awake and alert. The airway is al5 patent. The client is alert. Breathing/Chest: Spontaneous respiratory effort, equal unlabored respirations, breath sounds clear bilaterally, regular pattern, symmetrical chest rise and fall. Respiratory effort: spontaneous, unlabored. Circulation: No external hemorrhage present. Regular and strong central pulse, skin warm/dry/normal color. Disability Pupils are equal, round, reactive to light and accommodation. Client is alert. Exposure/Environment: A warming method has been applied: A warm blanket has been provided to the patient. 07:29 Reassessment Breathing: Spontaneous respiratory effort, equal unlabored respirations, ap3 breath sounds clear bilaterally, regular pattern with symmetrical chest rise and fall. Respiratory effort Respiratory pattern Regular. Secondary Survey: 06:37 HEENT: No deficits noted. HEENT: Head Other head pain. Gastrointestinal: No deficits al5 noted. : No deficits noted. No signs and/or symptoms were reported regarding the genitourinary system. Musculoskeletal: No signs and/or symptoms reported regarding the musculoskeletal system. Assessment: 06:34 General: Appears in no apparent distress. Behavior is calm, cooperative. Pain: al5 Complains of pain in head. Neuro: Level of Consciousness is awake, alert, obeys commands, Oriented to person, place, time, situation. EENT: No signs and/or symptoms were reported regarding the EENT system. Cardiovascular: Capillary refill < 3 seconds Patient's skin is warm and dry. Respiratory: Airway is patent Respiratory effort is even, unlabored, Respiratory pattern is regular, symmetrical. GI: No signs and/or symptoms were reported involving the gastrointestinal system. : No signs and/or symptoms were reported regarding the genitourinary system. Derm: Skin is intact, is healthy with good turgor, Skin is pink, warm \T\ dry. normal. Derm: small skin tear to L palm, no bleeding. Musculoskeletal: No signs and/or symptoms reported regarding the musculoskeletal system. 07:28 General: Appears in no apparent distress. Behavior is calm, cooperative. Pain: ap3 Complains of pain in jaw Pain began this morning. Neuro: Level of Consciousness is awake, alert, obeys commands, Oriented to person, place, time, situation. Cardiovascular: Patient's skin is warm and dry. Respiratory: Airway is patent Respiratory effort is even, unlabored, Respiratory pattern is regular, symmetrical. GI: No deficits noted. Vital Signs: 06:37 BP 159 / 85; Pulse 68; Resp 18; Temp 97.9; Pulse Ox 100% on R/A; Weight 104.33 kg; al5 Height 5 ft. 8 in. ; Pain 3/10; 06:37 Body Mass Index 34.97 (104.33 kg, 172.72 cm) al5 06:37 Pain Scale: Adult al5 [place] Coma Score: 06:37 Eye Response: spontaneous(4). Motor Response: obeys commands(6). Verbal Response: al5 oriented(5). Total: 15. Trauma Score (Adult): 06:37 Eye Response: spontaneous(1); Verbal Response: oriented(1); Motor Response: obeys al5 commands(2); Systolic BP: > 89 mm Hg(4); Respiratory Rate: 10 to 29 per min(4); [place] Score: 15; Trauma Score: 12 ED Course: 06:22 Patient arrived in ED. [id number] 06:25 Bharat Walters MD is Attending Physician. ec2 06:33 Leanna Holden, RN is Primary Nurse. al5 06:34 Triage completed. al5 06:38 Patient has correct armband on for positive identification. Bed in low position. Call al5 light in reach. Side rails up X 1. son at bedside. 06:38 No provider procedures requiring assistance completed. Patient maintains SpO2 al5 saturation greater than 95% on room air. 06:40 Arm band placed on right wrist. Patient placed in the treatment room, on a stretcher, al5 on pulse oximetry. 06:41 Provided Education on: plan of care. al5 06:41 Thermoregulation: warm blanket given to patient. al5 06:43 Hand Left 2 View XRAY In Process Unspecified. EDMS 06:54 CT Head Brain wo Cont In Process Unspecified. EDMS 07:01 Attending Physician role handed off by Bharat Walters MD ec2 07:01 Leighton Corbin DO is Attending Physician. ec2 07:46 Patient did not have IV access during this emergency room visit. ap3 Administered Medications: 06:38 Drug: Boostrix Tdap IM 0.5 ml IM once; as a single dose Route: IM; Site: right deltoid; bm8 Medication: 06:40 Vaccine Information Statement (VIS) provided today. Questions and/or concerns al5 addressed. VIS edition date: May 13, 2021. Intake: 06:37 n/a al5 Outcome: 07:35 Discharge ordered by . ms3 07:45 Discharged to home ambulatory, with family, ap3 07:45 Condition: good 07:45 Discharge instructions given to patient, family, Instructed on discharge instructions, follow up and referral plans. Demonstrated understanding of instructions, follow-up care, 07:46 Patient's length of stay was not longer than 2 hours. ap3 07:46 Patient left the ED. ap3 Signatures: Dispatcher [employer] Leanna Doan, SUHA BORDEN ap3 Leighton Corbin DO DO ms3 MarbellaShayla [email or web address] Bharat Walters MD MD ec2 Reinaldo oHffmann RN RN bm8 Leanna Holden, SUHA BORDEN al5
[2024-10-21 16:35] VITALS: BP 159/85; TEMP 97.9; O2SAT 100
== END 2024-10-20 07:46 | disposition home or self-care (01) ==
LOC: ER 06:20
DX: S00.511A Abrasion of lip, initial encounter (principal); S60.512A Abrasion of left hand, initial encounter; I10 Essential (primary) hypertension
CPT/HCPCS: 70450; 96372; 99284